=== PATIENT | female | born 1945 | race Caucasian/White ===

== ENCOUNTER → 2017-10-05 09:50 | Outpatient (CLI) | payer MEDICARE, SELFPAY ==
--- NOTE | 2017-10-05 09:53 | CDU_ITS ---
Reason For Study: Bilateral Carotid Stenosis Rt. Velocities/BP Lt. Velocities/BP Prox CCA 107/22 cm/sec. Prox CCA 113/25 cm/sec. Mid CCA 84/18 cm/sec. Mid CCA 89/24 cm/sec. Dist CCA 86/22 cm/sec. Dist CCA 66/14 cm/sec. Prox ICA 65/22 cm/sec. Prox ICA 98/30 cm/sec. Mid ICA 67/28 cm/sec. Mid ICA 123/41 cm/sec. Dist ICA 80/30 cm/sec. Dist ICA 108/41 cm/sec. Rt. ICA/CCA = 0.95. Lt. ICA/CCA = 1.38. Prox ECA 59/9 cm/sec. Prox ECA 96/11 cm/sec. Rt. Vert. 51/15 cm/sec. Lt. Vert. 62/18 cm/sec. Right Extracranial There is intimal thickening but no significant atherosclerotic plaque noted in the right common carotid artery. There is intimal thickening but no significant atherosclerotic plaque noted in the right internal carotid artery. There is intimal thickening but no significant atherosclerotic plaque noted in the right external carotid artery. Antegrade flow is noted in the right vertebral artery. Left Extracranial There is heterogeneous, irregular atherosclerotic plaque noted in the left common carotid artery. There is heterogeneous, irregular atherosclerotic plaque noted in the left internal carotid artery. There is no significant atherosclerotic plaque noted in the left external carotid artery. Antegrade flow is noted in the left vertebral artery. Procedure Carotid Duplex 41598. Exam performed in department. Interpretation Summary Mild (<50%) stenosis right extracranial internal carotid. Mild (<50%) stenosis left extracranial internal carotid. Flow within the vertebral arteries is antegrade bilaterally. Ordering Physician: Gini Ojeda Referring Physician: Gini Ojeda Performed By: Marlene Vinson, JYOTHI, RVT
== END ==
PROVIDERS: Family Provider Internal Medicine; PCP Internal Medicine; Visit Provider Internal Medicine
DX: I65.23 Occlusion and stenosis of bilateral carotid arteries (principal)
CPT/HCPCS: 93880

== ENCOUNTER 2017-10-23 09:17 | Day surgery (SDC) | payer MEDICARE, SELFPAY ==
--- NOTE | 2017-10-20 10:19 | EKG12_ITS ---
Test Reason : PRE OP Blood Pressure : / mmHG Vent. Rate : 074 BPM Atrial Rate : 074 BPM P-R Int : 150 ms QRS Dur : 084 ms QT Int : 386 ms P-R-T Axes : 060 -17 048 degrees QTc Int : 428 ms Sinus rhythm with marked sinus arrhythmia Septal infarct , age undetermined Abnormal ECG Confirmed by LUIS ENRIQUE HADLEY, TUCKER ([id number]), staff editor MORENO BOWER ([id number]) on 10/21/2017 1:20:36 PM Referred By: Russell Alegre Confirmed By:TUCKER DUDLEY MD
[2017-10-20 11:15] LABS: Hematocrit 44.6 % (37-47); Hemoglobin 14.3 g/dl (12.0-15.0); Mean Corp Hgb Conc 32.1 g/gl (32-36); Mean Corpuscular Volume 93.5 fL (81-99); Mean Platelet Vol. 9.5 fl (6.2-12.0); Platelet Count 271 K/mm3 (150-450); RBC Distribution Width CV 14.2 % (11.6-14.6); RBC Distribution Width SD 48.3 fl (35.1-43.9); Red Blood Count 4.77 M/mm3 (4.2-5.4); Scan Indicated on CBC? Y/N NO; White Blood Count 11.5 K/mm3 (4.4-11.0)
[2017-10-20 11:40] LABS: Anion Gap 7 (5-15); BUN 15 mg/dL (7-18); BUN/Creat Ratio 24.4 RATIO (10-20); Chloride 107 mmol/L (98-107); Creatinine, Serum 0.62 mg/dL (0.55-1.02); EST Glomerular Filtration Rate 101 mL/min (>60); Est Glom Filt Rate - Afr Amer 122 mL/min (>60); Glucose 92 mg/dL (74-106); Sodium Level 141 mmol/L (136-145)
[2017-10-23] VITALS (8 sets, daily range): BP systolic 142–174; BP diastolic 49–95; PULSE 76–94; RESP 16–18; TEMP 36.2–37.1; O2SAT 94–100; BMI 30.6
--- NOTE | 2017-10-23 | GALL_PTH ---
PATIENT: FAVIO HE LOC: [facility] U#:[id number] AGE/SX: 72/F ROOM: RE10/23/[address]: Dr. Russell Alegre MD : [id number] BED: DIS: 10/23/2017 SPEC #: [id number] RECD: 10/23/17 15:08 STATUS: NORMAN XANDER #: [id number] KARISSA: 10/23/17 00:[address]: Russell Alegre DEPT: SURGICAL PATHOLOGY RECD BY: Guillermo Whitfield ENTERED: 10/23/17 15:08 SP TYPE: YESSY PARKER DR: DO Dr. Jose Juan Prather MD Tissues: Gallbladder, NOS Procedures: Surgery Specimen Level IV HEADER OPERATION: Laparoscopic cholecystectomy; umbilical hernia repair PRE-OP DIAGNOSIS: Chronic cholecystitis without obstruction, cholelithiasis TISSUE SUBMITTED: Gallbladder MICROSCOPIC DIAGNOSIS Gallbladder: Chronic cholecystitis and cholelithiasis. Minute benign mucosal polyps. Focal epithelial dysplastic changes. HILDA:ghazal 10/26/17 MICROSCOPIC DESCRIPTION Slides are reviewed. GROSS DESCRIPTION Received is one container labeled with the patient's name and designated gallbladder. The specimen consists of a gallbladder measuring 12 cm in length and up to 4 cm in diameter. The external surface is pink-mejia, smooth and glistening for the most part. Focally it is granular, hemorrhagic and contains cautery artifact. The gallbladder contains green-yellow mucoid bile and one black rough-surfaced ovoid stone measuring 3 x 2 x 1.5 cm. A few mejia-pink polyps are also noted. The polyps measure 0.1 cm in greatest dimension. The mucosa is bile-stained and without any mass lesions. The gallbladder wall measures up to 0.2 cm in thickness. Timber Management Professor sections from the gallbladder and the cystic duct are submitted in two cassettes. The polyps are submitted in entirety. / HILDA:ghazal 10/23/17 More sections are submitted in cassettes 3-5. / HILDA:ghazal 10/27/17 TC:3 CPT: 25490
[2017-10-23] MEDS: Clindamycin 900 MG/50 ML BAG 75 MG IV (11:25)
--- NOTE | 2017-10-23 11:30 | PCM.DC.GB ---
Discharge Diet: Light diet - advance as tolerated Discharge Activity: May Not Drive - for 2-3 days or while taking narcotic pain medications., - - Do not drive, work heavy equipment or sign legal documents for 24 hours. May shower in (days): 1 - with the bandage in place. Additional Activity Instructions:: Pain medication may cause nausea. You should typically eat light foods as you take your pain medications. Pain medication may also cause constipation. If this is a problem for you, please discuss with your doctor. Call your doctor if your incision/area has: Continuous Slow Oozing, Sudden Increased Bleeding, Increased Pain/ Swelling, Increased Redness, Foul Smelling Discharge Call your doctor if you observe: Fever of 101 or Higher Suture Line Care: Avoid Pulling/Pushing, Avoid Pinching/Bending Additional Dressing/Incision Instructions:: Leave operative bandaids on for 2 days. When you remove dressing, leave Steri-Strips on until your follow-up appointment, or until the Steri-Strips fall off on their own. Allergies/Adverse Reactions: Allergies penicillin G Allergy (Unknown, Verified 10/16/17 14:07) Unknown Medications to take at Discharge Bifidobacterium infantis 4 mg capsule 4 mg PO QDAY 10/09/17 aspirin 81 mg tablet,delayed release 81 mg PO DAILY 10/09/17 calcium carbonate 200 mg calcium (500 mg) chewable tablet 200 mg PO DAILY tab 10/09/17 cholecalciferol (vitamin D3) 2,000 unit capsule 6,000 unit PO ONCE cap 10/09/17 rosuvastatin 5 mg tablet 5 mg PO QODAY 10/09/17 Ubidecarenone/Vitamin E Mixed [Ydk37-Fuv E 100 mg-10 Unit Sfg] 1 each PO DAILY 10/16/17 Oxycodone HCl/Acetaminophen [Percocet 5/325] 1 - 2 tab PO Q4H PRN PRN 4 Days #30 tab 10/23/17 The following prescriptions were given: Oxycodone HCl/Acetaminophen [Percocet 5/325] 1 - 2 tab PO Q4H PRN PRN 4 Days #30 tab PRN Reason: Pain Primary Care Physician: Gini Ojeda DO [Primary Care Provider] - Please Follow Up With: Russell Alegre MD - Please call [phone] to schedule an appointment. When: 7 days after your surgery.
--- NOTE | 2017-10-23 11:31 | PCM.OPRPT ---
Problem List (1) Calculus of gallbladder with chronic cholecystitis without obstruction Status: Acute Report of Operation Date of Procedure: 10/23/17 Pre-Operative Diagnosis: K 80.10 calculus of the gallbladder without obstruction or gangrene Post-Operative Diagnosis: Same Surgery/Procedure Performed:: 79567 laparoscopic cholecystectomy Type of Anesthesia:: General Anesthesiologist: Jose Juan Holt Description of Procedure: Patient was brought into the operating room and placed in the supine position. Under excellent endotracheal intubation the abdomen was sterilely prepped and draped in the usual fashion. Local was injected supraumbilically and a curvilinear incision was made. Dissection was carried down to the fascia the fascia was grasped with a Clifton varies needle was placed inside the abdomen the abdomen was insufflated to 15 torr. A 10/12 trocar was placed without difficulty. Patient was placed in the head up and rotated to the left position. A subxiphoid #5 trochars placed. Inferior to this another #5 trocar was placed. Laterally a #5 trocar was placed. All these under direct visualization without injury to underlying structures. Fundus of the gallbladder was grasped and retracted in a cephalad direction. Adhesions were taken down with electrocautery. I dissected out the cystic duct. I place hemoclips proximally and distally and ligated the duct. Identified the cystic artery. Placed hemoclips proximally and distally and ligated the artery. I deliver the gallbladder from the gallbladder bed with use of electrocautery. I did place 2 more hemoclips on the posterior branch of the cystic artery. I had no spillage of bile or stones. I placed a specimen specimen bag and delivered through the umbilical port without difficulty. I used electrocautery for good hemostasis. I remove the trochars under direct visualization. I closed the fascia the umbilical defect with 3 interrupted sutures of #1 Nurolon's. Skin incisions were closed with subcuticular stitches of 4-0 Monocryl. Steri-Strips are applied sterile dressings were applied and the patient tolerated the procedure well. - Admit VTE Documentation VTE Present on Admission: No VTE Mechan Device Prophylaxis: SCD's VTE Pharm Prophylaxis ordered?: No Reason prophylaxis not ordered:: Treatment Not Indicated
[2017-10-23] MEDS: Bupivacaine 0.25% 30 ML Vial (11:42)
--- NOTE | 2017-10-23 17:15 | SUR.PHASEII ---
At 1650 pt straight cath'd per orders for 500cc of cloudy dark yellow urine. chela well.
== END 2017-10-23 17:10 | disposition home or self-care (01) ==
LOC: SDC 09:17 → AC 09:18
PROVIDERS: Family Provider Internal Medicine; PCP Internal Medicine; Visit Provider Surgery
PROC: (CPT 47610; principal; 2017-10-23 11:10)
DX: K80.10 Calculus of gallbladder with chronic cholecystitis without obstruction (principal); K82.8 Other specified diseases of gallbladder; I05.2 Rheumatic mitral stenosis with insufficiency; I65.23 Occlusion and stenosis of bilateral carotid arteries; I10 Essential (primary) hypertension; E78.5 Hyperlipidemia, unspecified; Z79.82 Long term (current) use of aspirin; Z79.899 Other long term (current) drug therapy
CPT/HCPCS: 47562; 36415; 80048; 85027; 88304; 88305; 93005; J7120; J2405

== ENCOUNTER → 2017-12-08 11:28 | Outpatient (CLI) | payer MEDICARE, SELFPAY ==
[2017-12-08 12:08] LABS: Absolute Lymphocyte Count 3.08 X10^3/ul (0.83-4.51); Absolute Neutrophil Count 8.1 X10^3/uL (2.0-7.7); Basophil# 0.02 X10^3/uL; Basophil% 0.2 % (0-1); Eosinophil# 0.32 X10^3/uL; Eosinophils% 2.6 % (0-5); Hematocrit 44.9 % (37-47); Hemoglobin 14.4 g/dl (12.0-15.0); Lymphocyte # 3.08 X10^3/ul (4.0); Lymphocyte % 24.9 % (19-41); Mean Corp Hgb Conc 32.1 g/gl (32-36); Mean Corpuscular Volume 93.5 fL (81-99); Mean Platelet Vol. 9.2 fl (6.2-12.0); Monocyte# 0.84 X10^3/uL; Monocyte% 6.8 % (0-10); Neutrophil # 8.06 X10^3/uL (2.7-7.7); Neutrophil % 65.3 % (47-70); Platelet Count 288 K/mm3 (150-450); RBC Distribution Width CV 14.3 % (11.6-14.6); RBC Distribution Width SD 48.6 fl (35.1-43.9); White Blood Count 12.4 K/mm3 (4.4-11.0)
[2017-12-08 12:10] LABS: POSITIVE COUNT NO; POSITIVE DIFFERENTIAL NO; POSITIVE MORPHOLOGY NO
[2017-12-08 12:50] LABS: ALB/GLOB Ratio 1.2 RATIO (0.9-2.4); AST(SGOT) 23 U/L (15-37); Alanine Aminotransfer ALT/SGPT 33 U/L (13-56); Albumin, Serum 3.8 g/dL (3.2-5.0); Alkaline Phosphatase 59 U/L (45-117); Anion Gap 8 (5-15); BUN 11 mg/dL (7-18); BUN/Creat Ratio 16.4 RATIO (10-20); Calcium,Total 8.5 mg/dL (8.5-10.1); Chloride 107 mmol/L (98-107); Cholesterol 107 mg/dL (200); Creatinine, Serum 0.67 mg/dL (0.55-1.02); EST Glomerular Filtration Rate 91 mL/min (>60); Est Glom Filt Rate - Afr Amer 111 mL/min (>60); Globulin 3.2 g/dL (2.2-4.2); Glucose 89 mg/dL (74-106); High Density Lipoprotein 45 mg/dL; Potassium 4.2 mmol/L (3.5-5.1); Sodium Level 142 mmol/L (136-145); Triglycerides 152 mg/dL; Very Low Density Lipoprotein 30 mg/dL (5-40)
[2017-12-08 12:55] LABS: Hemoglobin A1c 5.9 % (4.2-6.3)
[2017-12-09 08:21] LABS: Vitamin D,25 Hydroxy 52.8 ng/mL (29.95-100.01)
== END ==
PROVIDERS: Family Provider Internal Medicine; PCP Internal Medicine; Visit Provider Internal Medicine
DX: R73.09 Other abnormal glucose (principal); R10.11 Right upper quadrant pain; E55.9 Vitamin D deficiency, unspecified; E78.5 Hyperlipidemia, unspecified
CPT/HCPCS: 36415; 80053; 80061; 82306; 83036; 85025

== ENCOUNTER → 2018-03-08 10:25 | Outpatient (CLI) | payer MEDICARE, SELFPAY ==
[2018-03-08 11:14] LABS: Absolute Lymphocyte Count 2.97 X10^3/ul (0.83-4.51); Absolute Neutrophil Count 6.6 X10^3/uL (2.0-7.7); Basophil# 0.03 X10^3/uL; Basophil% 0.3 % (0-1); Eosinophil# 0.27 X10^3/uL; Eosinophils% 2.5 % (0-5); Hematocrit 43.1 % (37-47); Hemoglobin 14.3 g/dl (12.0-15.0); Lymphocyte # 2.97 X10^3/ul (4.0); Lymphocyte % 27.3 % (19-41); Mean Corp Hgb Conc 33.2 g/gl (32-36); Mean Corpuscular Hgb 30.6 pg (27.0-32.0); Mean Corpuscular Volume 92.1 fL (81-99); Mean Platelet Vol. 9.2 fl (6.2-12.0); Monocyte# 0.97 X10^3/uL; Monocyte% 8.9 % (0-10); Neutrophil # 6.61 X10^3/uL (2.7-7.7); Neutrophil % 60.7 % (47-70); Platelet Count 316 K/mm3 (150-450); RBC Distribution Width CV 14.4 % (11.6-14.6); RBC Distribution Width SD 47.1 fl (35.1-43.9); Red Blood Count 4.68 M/mm3 (4.2-5.4); White Blood Count 10.9 K/mm3 (4.4-11.0)
[2018-03-08 11:18] LABS: POSITIVE COUNT NO; POSITIVE DIFFERENTIAL NO; POSITIVE MORPHOLOGY NO
[2018-03-08 11:24] LABS: Microalbumin,Random Urine 21.4 mg/L (NO RANGE EST.); Microalbumin:Creatinine Ratio 46.1 mg/g CRE (<30 mg/g CRE)
[2018-03-08 11:48] LABS: ALB/GLOB Ratio 1.1 RATIO (0.9-2.4); AST(SGOT) 21 U/L (15-37); Alanine Aminotransfer ALT/SGPT 31 U/L (13-56); Albumin, Serum 3.9 g/dL (3.2-5.0); Alkaline Phosphatase 57 U/L (45-117); Anion Gap 12 (5-15); BUN 18 mg/dL (7-18); BUN/Creat Ratio 28.7 RATIO (10-20); Calcium,Total 8.9 mg/dL (8.5-10.1); Chloride 104 mmol/L (98-107); Cholesterol 106 mg/dL (200); Creatinine, Serum 0.63 mg/dL (0.55-1.02); EST Glomerular Filtration Rate 98 mL/min (>60); Est Glom Filt Rate - Afr Amer 119 mL/min (>60); Globulin 3.4 g/dL (2.2-4.2); Glucose 98 mg/dL (74-106); High Density Lipoprotein 44 mg/dL; Potassium 3.8 mmol/L (3.5-5.1); Protein, Total 7.3 g/dL (6.4-8.2); Sodium Level 142 mmol/L (136-145); Triglycerides 151 mg/dL; Very Low Density Lipoprotein 30 mg/dL (5-40)
== END ==
PROVIDERS: Family Provider Internal Medicine; PCP Internal Medicine; Visit Provider Internal Medicine
DX: R73.09 Other abnormal glucose (principal); E78.5 Hyperlipidemia, unspecified; I10 Essential (primary) hypertension; K90.89 Other intestinal malabsorption; D72.829 Elevated white blood cell count, unspecified
CPT/HCPCS: 36415; 80053; 80061; 82043; 82570; 83036; 85025

== ENCOUNTER → 2018-04-08 15:12 | Outpatient (CLI) | payer MEDICARE, SELFPAY ==
--- NOTE | 2018-04-08 15:15 | US_ITS ---
STUDY: RENAL ULTRASOUND - COMPLETE REASON FOR EXAM: Female, 73 years old. Urinary frequency. TECHNIQUE: Ultrasound evaluation of the kidneys was performed with real-time and static seth-scale imaging. COMPARISON: None. FINDINGS: RIGHT KIDNEY: Normal location of the right kidney, which is normal in size. Right kidney measures 12.8 cm in length. There is a normal cortex of the right kidney. There is no right renal mass or cyst. There are no right renal calculi. There is no right hydronephrosis. DISTAL RIGHT URETER: There is no demonstrated right ureteral jet. LEFT KIDNEY: Normal location of the left kidney, which is normal in size. The left kidney measures 13.2 cm in length. There is a normal cortex of the left kidney. The renal cortex measures cm. There is no left renal mass or cyst. There are no left renal calculi. There is no left hydronephrosis. DISTAL LEFT URETER: There is no demonstrated left ureteral jet. BLADDER: The distended urinary bladder has a volume of 341 ml. According to the pillowcase turner the patient reported voiding and stated she felt empty. The empty urinary bladder has a volume of 347 ml. There is a normal wall thickness of the distended urinary bladder. There is no demonstrated mass within the urinary bladder. There are no demonstrated bladder calculi. US/Kidney and Bladder IMPRESSION: Within normal limits ultrasound of the kidneys. Significant post void residual. Electronically Signed: Hollie Ricks MD at 20:28 EDT Tel , Service support ,
== END ==
PROVIDERS: Family Provider Internal Medicine; PCP Internal Medicine; Visit Provider Urology
DX: N39.0 Urinary tract infection, site not specified (principal)
CPT/HCPCS: 76770

== ENCOUNTER → 2018-04-21 11:09 | Outpatient (CLI) | payer MEDICARE, SELFPAY | PROVIDERS: Family Provider Internal Medicine; PCP Internal Medicine; Visit Provider Internal Medicine | DX: Z78.0 Asymptomatic menopausal state (principal); M85.80 Other specified disorders of bone density and structure, unspecified site; Z12.31 Encounter for screening mammogram for malignant neoplasm of breast | CPT/HCPCS: 77063; 77067; 77080 ==

== ENCOUNTER → 2018-06-15 11:35 | Outpatient (CLI) | payer MEDICARE, SELFPAY ==
[2018-06-15 13:17] LABS: Absolute Lymphocyte Count 3.04 X10^3/ul (0.83-4.51); Absolute Neutrophil Count 6.7 X10^3/uL (2.0-7.7); Basophil# 0.02 X10^3/uL; Basophil% 0.2 % (0-1); Eosinophils% 2.8 % (0-5); Hematocrit 45.1 % (37-47); Hemoglobin 14.3 g/dl (12.0-15.0); Lymphocyte # 3.04 X10^3/ul (4.0); Lymphocyte % 27.9 % (19-41); Mean Corp Hgb Conc 31.7 g/gl (32-36); Mean Corpuscular Hgb 29.8 pg (27.0-32.0); Mean Platelet Vol. 9.8 fl (6.2-12.0); Monocyte# 0.84 X10^3/uL; Monocyte% 7.7 % (0-10); Neutrophil # 6.67 X10^3/uL (2.7-7.7); Neutrophil % 61.1 % (47-70); Platelet Count 265 K/mm3 (150-450); RBC Distribution Width CV 14.2 % (11.6-14.6); RBC Distribution Width SD 48.5 fl (35.1-43.9); White Blood Count 10.9 K/mm3 (4.4-11.0)
[2018-06-15 13:21] LABS: POSITIVE COUNT NO; POSITIVE DIFFERENTIAL NO; POSITIVE MORPHOLOGY NO
[2018-06-15 13:27] LABS: Microalbumin,Random Urine 14.8 mg/L (NO RANGE EST.); Microalbumin:Creatinine Ratio 15.2 mg/g CRE (<30 mg/g CRE)
[2018-06-15 14:12] LABS: ALB/GLOB Ratio 1.1 RATIO (0.9-2.4); AST(SGOT) 19 U/L (15-37); Alanine Aminotransfer ALT/SGPT 31 U/L (13-56); Albumin, Serum 3.8 g/dL (3.2-5.0); Alkaline Phosphatase 58 U/L (45-117); Anion Gap 11 (5-15); BUN 14 mg/dL (7-18); BUN/Creat Ratio 21.6 RATIO (10-20); Chloride 106 mmol/L (98-107); Cholesterol 113 mg/dL (200); Creatinine, Serum 0.65 mg/dL (0.55-1.02); EST Glomerular Filtration Rate 95 mL/min (>60); Est Glom Filt Rate - Afr Amer 114 mL/min (>60); Globulin 3.5 g/dL (2.2-4.2); Glucose 90 mg/dL (74-106); High Density Lipoprotein 45 mg/dL; Potassium 3.9 mmol/L (3.5-5.1); Protein, Total 7.3 g/dL (6.4-8.2); Sodium Level 141 mmol/L (136-145); Triglycerides 144 mg/dL; Very Low Density Lipoprotein 29 mg/dL (5-40)
[2018-06-15 14:17] LABS: Vitamin D,25 Hydroxy 38.5 ng/mL (29.95-100.01)
[2018-06-15 14:29] LABS: Hemoglobin A1c 5.8 % (4.2-6.3)
== END ==
PROVIDERS: Family Provider Internal Medicine; PCP Internal Medicine; Referring Provider Internal Medicine; Visit Provider Internal Medicine
DX: E78.5 Hyperlipidemia, unspecified (principal); E55.9 Vitamin D deficiency, unspecified; K76.0 Fatty (change of) liver, not elsewhere classified; R73.09 Other abnormal glucose
CPT/HCPCS: 36415; 80053; 80061; 82043; 82105; 82306; 82570; 83036; 85025

== ENCOUNTER → 2018-10-19 07:36 | Outpatient (CLI) | payer MEDICARE, SELFPAY ==
[2018-10-13 14:21] VITALS: BMI 30.2
--- NOTE | 2018-10-19 07:41 | US_ITS ---
STUDY: ABDOMINAL ULTRASOUND - RIGHT UPPER QUADRANT REASON FOR VISIT: Female, 73 years old. Fatty liver. TECHNIQUE: Ultrasound evaluation of the right upper quadrant was performed with real-time and static martini-scale imaging. TECHNICAL QUALITY: Adequate. COMPARISON: Abdominal ultrasound, September 24, 2017. FINDINGS: Liver: The liver measures 19.7 cm. There is increased echogenicity consistent with fatty infiltration. The bile ducts are within normal limits. There is hepatic color flow. The direction of portal flow is hepatopetal. There is no demonstrated mass lesion. Gallbladder: The patient is status post cholecystectomy. Common Bile Duct (C.B.D.): The common bile duct measures 5.2 mm. Pancreas: Normal size of the head, body and tail of the pancreas. There is normal echogenicity of the pancreas. There is no demonstrated pancreatic mass or cyst. Right Kidney: Normal size of the right kidney. The right kidney measures 12.7 cm. Normal renal cortex. The right cortex measures 1.8 cm. There is no demonstrated renal mass or cyst. There is no right hydronephrosis. US/Liver IMPRESSION: 1. Prominent fatty infiltrated liver without focal mass. 2. Interval cholecystectomy since the prior ultrasound. 3. Normal pancreas and right kidney. Electronically Signed: Abelardo Becerra DO at 23:54 EST Tel [phone], Service support ,
== END ==
PROVIDERS: Family Provider Internal Medicine; PCP Internal Medicine; Referring Provider Internal Medicine; Visit Provider Internal Medicine
DX: K76.0 Fatty (change of) liver, not elsewhere classified (principal)
CPT/HCPCS: 76705

== ENCOUNTER → 2018-10-22 08:38 | Outpatient (CLI) | payer MEDICARE, SELFPAY ==
[2018-10-13 14:21] VITALS: BMI 30.2
--- NOTE | 2018-10-22 08:47 | CDU_ITS ---
Reason For Study: carotid stenosis Rt. Velocities/BP Lt. Velocities/BP Prox CCA 87.9/18.2 cm/sec. Prox CCA 113/27.6 cm/sec. Mid CCA 80.3/20.5 cm/sec. Mid CCA 97.3/25.2 cm/sec. Dist CCA 75.6/21.1 cm/sec. Dist CCA 92.6/22.9 cm/sec. Prox ICA 51.6/12.9 cm/sec. Prox ICA 105/25.9 cm/sec. Mid ICA 62.1/21.7 cm/sec. Mid ICA 97.6/28.1 cm/sec. Dist ICA 89.1/34.0 cm/sec. Dist ICA 134/36.9 cm/sec. Rt. ICA/CCA = 1.1. Lt. ICA/CCA = 1.4. Prox ECA 110/14.7 cm/sec. Prox ECA 114/18.3 cm/sec. Rt. Vert. 46.3/13.5 cm/sec. Lt. Vert. 60.4/15.8 cm/sec. Right Extracranial There is intimal thickening but no significant atherosclerotic plaque noted in the right common carotid artery. There is intimal thickening but no significant atherosclerotic plaque noted in the right internal carotid artery. There is intimal thickening but no significant atherosclerotic plaque noted in the right external carotid artery. Antegrade flow is noted in the right vertebral artery. Left Extracranial There is intimal thickening but no significant atherosclerotic plaque noted in the left common carotid artery. There is heterogeneous, irregular atherosclerotic plaque noted in the left internal carotid artery. There is intimal thickening but no significant atherosclerotic plaque noted in the left external carotid artery. Antegrade flow is noted in the left vertebral artery. Procedure Carotid Duplex 21261. The exam was diagnostic. Exam performed in department. Interpretation Summary No significant atherosclerotic plaque or stenosis noted in the right internal carotid artery. Mild (<50%) stenosis left extracranial internal carotid. Flow within the vertebral arteries is antegrade bilaterally. Ordering Physician: Gini Ojeda Performed By: Scott Davis RVT
--- NOTE | 2018-10-22 09:09 | RAD_ITS ---
STUDY: AIR-CONTRAST UPPER GI SERIES. REASON FOR EXAM: Female, 73 years old. Dyspepsia. FLUOROSCOPY TIME (if supplied): (0:50) minutes/seconds TECHNIQUE: The patient ingested barium. Multiple images of the esophagus, stomach and duodenum were obtained. COMPARISON: None. FINDINGS: The esophagus is unremarkable. There is no evidence of obstruction. No reflux is seen. There is evidence of a small sliding hiatal hernia. The remainder of the stomach and duodenum is unremarkable. There is no evidence of ulceration. No mass lesions present. RAD/Upper GI Series Only IMPRESSION: Small sliding hiatal hernia without gastroesophageal reflux. Electronically Signed: Wellington Fontaine MD at 15:46 EST , Service support ,
== END ==
PROVIDERS: Family Provider Internal Medicine; PCP Internal Medicine; Referring Provider Internal Medicine; Visit Provider Internal Medicine
DX: I65.23 Occlusion and stenosis of bilateral carotid arteries (principal); K76.0 Fatty (change of) liver, not elsewhere classified; R07.9 Chest pain, unspecified
CPT/HCPCS: 74246; 93880

== ENCOUNTER → 2019-01-04 12:15 | Outpatient (CLI) | payer MEDICARE, SELFPAY ==
[2018-10-13 14:21] VITALS: BMI 30.2
[2019-01-04 13:12] LABS: Absolute Lymphocyte Count 2.44 X10^3/ul (0.83-4.51); Basophil# 0.02 X10^3/uL; Basophil% 0.2 % (0-1); Eosinophil# 0.25 X10^3/uL; Eosinophils% 2.4 % (0-5); Hematocrit 43.6 % (37-47); Hemoglobin 14.2 g/dl (12.0-15.0); Lymphocyte # 2.44 X10^3/ul (4.0); Lymphocyte % 23.2 % (19-41); Mean Corp Hgb Conc 32.6 g/gl (32-36); Mean Corpuscular Hgb 29.3 pg (27.0-32.0); Mean Corpuscular Volume 90.1 fL (81-99); Mean Platelet Vol. 9.2 fl (6.2-12.0); Monocyte# 0.75 X10^3/uL; Monocyte% 7.1 % (0-10); Neutrophil # 7.02 X10^3/uL (2.7-7.7); Neutrophil % 66.8 % (47-70); Platelet Count 277 K/mm3 (150-450); RBC Distribution Width CV 14.7 % (11.6-14.6); RBC Distribution Width SD 47.9 fl (35.1-43.9); Red Blood Count 4.84 M/mm3 (4.2-5.4); White Blood Count 10.5 K/mm3 (4.4-11.0)
[2019-01-04 13:13] LABS: POSITIVE COUNT NO; POSITIVE DIFFERENTIAL NO; POSITIVE MORPHOLOGY NO
[2019-01-04 13:32] LABS: ALB/GLOB Ratio 1.2 RATIO (0.9-2.4); AST(SGOT) 24 U/L (15-37); Alanine Aminotransfer ALT/SGPT 32 U/L (13-56); Albumin, Serum 3.9 g/dL (3.2-5.0); Alkaline Phosphatase 56 U/L (45-117); Anion Gap 10 (5-15); BUN 14 mg/dL (7-18); BUN/Creat Ratio 21.4 RATIO (10-20); Calcium,Total 9.3 mg/dL (8.5-10.1); Chloride 106 mmol/L (98-107); Cholesterol 121 mg/dL (200); Creatinine, Serum 0.66 mg/dL (0.55-1.02); EST Glomerular Filtration Rate 93 mL/min (>60); Est Glom Filt Rate - Afr Amer 113 mL/min (>60); Globulin 3.3 g/dL (2.2-4.2); Glucose 97 mg/dL (74-106); High Density Lipoprotein 48 mg/dL; Potassium 4.1 mmol/L (3.5-5.1); Protein, Total 7.2 g/dL (6.4-8.2); Sodium Level 142 mmol/L (136-145); Triglycerides 168 mg/dL; Very Low Density Lipoprotein 34 mg/dL (5-40)
[2019-01-04 13:34] LABS: Microalbumin,Random Urine 13.5 mg/L (NO RANGE EST.); Microalbumin:Creatinine Ratio 73.4 mg/g CRE (<30 mg/g CRE)
[2019-01-04 13:36] LABS: Hemoglobin A1c 6.4 % (4.2-6.3)
[2019-01-05 12:11] LABS: AFP, Tumor Marker 3.2 ng/mL (0.0-8.3)
== END ==
PROVIDERS: Family Provider Internal Medicine; PCP Internal Medicine; Referring Provider Internal Medicine; Visit Provider Internal Medicine
DX: E78.5 Hyperlipidemia, unspecified (principal); K76.0 Fatty (change of) liver, not elsewhere classified; R73.09 Other abnormal glucose
CPT/HCPCS: 36415; 80053; 80061; 82043; 82105; 82570; 83036; 85025

== ENCOUNTER → 2019-01-11 14:57 | Outpatient (CLI) | payer MEDICARE, SELFPAY ==
[2018-10-13 14:21] VITALS: BMI 30.2
--- NOTE | 2019-01-11 15:00 | VDLE_ITS ---
Reason For Study: pain RIGHT LEFT CFV is compressible, spontaneous, phasic, CFV is compressible, spontaneous, phasic, competent and demonstrates normal competent, and demonstrates normal augmentation. augmentation. FV is compressible, spontaneous, phasic, competent and demonstrates normal augmentation. POP V is compressible, spontaneous, phasic, competent and demonstrates normal augmentation. T/P Trunk is compressible. PTV is compressible. RT PerV is compressible. GSV is absent. Procedure Exam performed in department. The exam was diagnostic. A preliminary report was called and/or faxed to Dr. Ojeda. Interpretation Summary Deep veins of the right lower extremity are patent and compressible segmentally. There is no evidence of right lower extremity deep vein thrombosis. Valvular competence appears intact within the proximal deep venous system on the right . The right great saphenous vein is absent. Ordering Physician: Gini Ojeda Performed By: Scott Davis RVT
--- NOTE | 2019-01-11 15:31 | RAD_ITS ---
STUDY: X-RAY - UNILATERAL RIBS ( RIGHT ) WITH CHEST REASON FOR EXAM: Female, 73 years old. Increasing right rib pain. No history of trauma. TECHNIQUE - RIBS: 4 view(s) of the ribs. TECHNIQUE - CHEST: Single PA view of the chest. COMPARISON: Comparison is made with prior chest radiograph dated March 24, 2018. FINDINGS - RIBS: Normal visualized ribs without a demonstrated fracture. FINDINGS - CHEST: Hyperinflation. Stable mild increased markings at the lung bases suggestive of bibasilar scarring. There is no demonstrated pleural abnormality. Normal size heart. Normal mediastinum and nguyen. Normal visualized pulmonary arteries. There is atherosclerotic calcification of the aortic arch with tortuosity. There are diffuse degenerative changes of the visualized thoracic spine. Normal visualized ribs, clavicles, and shoulders. There is no demonstrated abnormality of the visualized soft tissue structures of the upper abdomen. RAD/Ribs Uni Min 3V w/PA Chest IMPRESSION: RIBS: Normal x-ray examination of the ribs. CHEST: Increased markings at the lung bases suggestive of scarring. This is unchanged. Electronically Signed: Wellington Fontaine, at 8:59 EDT , Service support ,
--- NOTE | 2019-01-11 15:31 | RAD_ITS ---
STUDY: X-RAY - RIGHT KNEE REASON FOR EXAM: Female, 73 years old. Increasing knee pain. A concern for osteoporosis. TECHNIQUE: 4 view(s) of the knee. COMPARISON: Prior comparison studies are not available for review at this time. FINDINGS: There is demineralization of the visualized distal femur. There is demineralization of the tibia and fibula. Normal proximal tibiofibular articulation. There is no demonstrated fracture. There is mild degenerative arthrosis of the medial femorotibial compartment. There is mild degenerative arthrosis of the lateral femorotibial compartment. There is mild degenerative arthrosis of the patellofemoral articulation. There is an enthesophyte at the quadriceps tendon insertion. There is chondrocalcinosis of the retropatellar cartilage. There is a moderate volume joint effusion. The soft tissue structures are unremarkable. RAD/Knee 4 or More Views IMPRESSION: 1. Osteopenia. 2. Degenerative arthropathy and enthesopathy. 3. Moderately large joint effusion. Electronically Signed: Archana Johnson MD at 17:19 EDT , Service support ,
== END ==
PROVIDERS: Family Provider Internal Medicine; PCP Internal Medicine; Referring Provider Internal Medicine; Visit Provider Internal Medicine
DX: M79.604 Pain in right leg (principal); R07.81 Pleurodynia
CPT/HCPCS: 71101; 73564; 93971

== ENCOUNTER → 2019-04-13 11:42 | Outpatient (CLI) | payer MEDICARE, SELFPAY ==
[2018-10-13 14:21] VITALS: BMI 30.2
[2019-04-13 12:35] LABS: Absolute Lymphocyte Count 2.43 X10^3/uL (0.83-4.51); Absolute Neutrophil Count 6.4 X10^3/uL (2.0-7.7); Basophil# 0.04 X10^3/uL; Basophil% 0.4 % (0-1); Eosinophil# 0.18 X10^3/uL; Eosinophils% 1.8 % (0-5); Hematocrit 44.3 % (37-47); Hemoglobin 14.9 g/dL (12.0-15.0); Lymphocyte # 2.43 X10^3/ul (4.0); Lymphocyte % 24.5 % (19-41); Mean Corp Hgb Conc 33.6 g/dL (32-36); Mean Corpuscular Volume 92.1 fL (81-99); Mean Platelet Vol. 9.4 fl (6.2-12.0); Monocyte# 0.81 X10^3/uL; Monocyte% 8.2 % (0-10); NRBC Flagged by Analyzer 0 % (0-5); Neutrophil # 6.42 X10^3/uL (2.7-7.7); Neutrophil % 64.6 % (47-70); Platelet Count 285 K/mm3 (150-450); RBC Distribution Width CV 13.9 % (11.6-14.6); RBC Distribution Width SD 47.2 fl (35.1-43.9); Red Blood Count 4.81 M/mm3 (4.2-5.4); White Blood Count 9.9 K/mm3 (4.4-11.0)
[2019-04-13 12:52] LABS: Hemoglobin A1c 6.1 % (4.2-6.3)
[2019-04-13 13:00] LABS: ALB/GLOB Ratio 1.2 RATIO (0.9-2.4); AST(SGOT) 22 U/L (15-37); Alanine Aminotransfer ALT/SGPT 30 U/L (13-56); Alkaline Phosphatase 57 U/L (45-117); Anion Gap 8 (5-15); BUN 18 mg/dL (7-18); BUN/Creat Ratio 24.2 RATIO (10-20); Calcium,Total 9.3 mg/dL (8.5-10.1); Chloride 107 mmol/L (98-107); Cholesterol 120 mg/dL (200); Creatinine, Serum 0.74 mg/dL (0.55-1.02); EST Glomerular Filtration Rate 81 mL/min (>60); Est Glom Filt Rate - Afr Amer 98 mL/min (>60); Globulin 3.4 g/dL (2.2-4.2); Glucose 108 mg/dL (74-106); High Density Lipoprotein 47 mg/dL; Protein, Total 7.4 g/dL (6.4-8.2); Sodium Level 140 mmol/L (136-145); Triglycerides 111 mg/dL; Very Low Density Lipoprotein 22 mg/dL (5-40)
== END ==
PROVIDERS: Family Provider Internal Medicine; PCP Internal Medicine; Referring Provider Internal Medicine; Visit Provider Internal Medicine
DX: I10 Essential (primary) hypertension (principal); E78.5 Hyperlipidemia, unspecified; R73.09 Other abnormal glucose
CPT/HCPCS: 36415; 80053; 80061; 83036; 85025

== ENCOUNTER → 2019-05-05 06:36 | Outpatient (CLI) | payer MEDICARE, SELFPAY ==
[2018-10-13 14:21] VITALS: BMI 30.2
--- NOTE | 2019-05-05 06:48 | ECHOCS_ITS ---
Reason For Study: BARGER Procedure This was a 2D Doppler, Color Flow transthoracic echocardiogram. The study was technically difficult. Contrast injection was performed. Exam performed in department. Left Ventricle Normal size and thickness. The estimated ejection fraction is 65 %. Normal diastology for age. No regional wall motion abnormalities noted. Right Ventricle Normal RV size. Normal systolic function. Atria Normal left atrium. Normal right atrium. No doppler evidence for ASD. Mitral Valve There is no mitral valve stenosis. No mitral valve insufficiency. Tricuspid Valve There is no tricuspid stenosis. Unable to estimate RV systolic pressure due to insufficient tricuspid regurgitant envelope. Trivial tricuspid valve insufficiency. Aortic Valve Trisinus/trileaflet aortic valve. There is no aortic stenosis. No aortic valve insufficiency. Pulmonic Valve There is no pulmonic valvular stenosis. No pulmonic valve insufficiency. Great Vessels Normal aortic root. Pericardium/Pleural No pericardial effusion. Medication Diluted definity 3.5ml given slow IV push to enhance endocardial definition. MMode/2D Measurements & Calculations LVIDd: 4.4 cm IVSd: 0.89 cm Ao root diam: 3.0 cm LVIDs: 2.7 cm LVPWd: 0.96 cm RVDd: 3.2 cm FS: 38.3 % LAV(MOD-bp): 53.5 ml LVAd ap4: 27.8 cm2 SV(MOD-sp4): 61.9 ml LAV(MOD-bp) Indexed: 25.3 ml/m2 EDV(MOD-sp4): 92.2 ml LAV(MOD-sp2): 64.2 ml EDV(sp4-el): 93.8 ml LAV(MOD-sp4): 41.9 ml LVAs ap4: 14.6 cm2 ESV(MOD-sp4): 30.3 ml ESV(sp4-el): 30.7 ml EF(MOD-sp4): 67.2 % EF(sp4-el): 67.3 % SV(sp4-el): 63.1 ml LA A4 area: 17.2 cm2 LA dimension(2D): 3.3 cm RA A4 area: 13.7 cm2 Time Measurements MV dec time: 0.24 sec Doppler Measurements & Calculations MV E max cole: 102.3 cm/sec Lat Peak E' Cole: 8.6 cm/sec Med Peak E' Cole: 7.0 cm/sec MV A max cole: 92.8 cm/sec E/E' lat: 11.9 E/E' med: 14.7 MV E/A: 1.1 Ao V2 max: 136.8 cm/sec LV V1 max: 111.2 cm/sec PA V2 max: 91.3 cm/sec Ao max P.5 mmHg LV V1 max P.0 mmHg TR max cole: 229.6 cm/sec TR max P.1 mmHg Interpretation Summary The study was technically difficult. Diluted definity 3.5ml given slow IV push to enhance endocardial definition. The estimated ejection fraction is 65 %. Normal diastology for age. The study was technically difficult. Ordering Physician: Gini Ojeda Referring Physician: Gini Ojeda Performed By: Nan Man, JYOTHI, RVT
--- NOTE | 2019-05-05 10:20 | US_ITS ---
STUDY: ABDOMINAL ULTRASOUND - RIGHT UPPER QUADRANT REASON FOR VISIT: Female, 74 years old. Elevated LFTs TECHNIQUE: Ultrasound evaluation of the right upper quadrant was performed with real-time and static martini-scale imaging. TECHNICAL QUALITY: Adequate. COMPARISON: None. FINDINGS: Liver: The liver measures 18.1 cm. There is increased echogenicity consistent with fatty infiltration. The bile ducts are within normal limits. There is hepatic color flow. The direction of portal flow is hepatopetal. There is no demonstrated mass lesion. Gallbladder: The patient is status post cholecystectomy. Common Bile Duct (C.B.D.): The common bile duct measures 8.6 mm. Pancreas: Normal size of the head, body and tail of the pancreas. There is normal echogenicity of the pancreas. There is no demonstrated pancreatic mass or cyst. Right Kidney: Normal size of the right kidney. The right kidney measures 13.1 x 5.9 x 4.3 cm. Normal renal cortex. The right cortex measures 1.1 cm. There is no demonstrated renal mass or cyst. There is no right hydronephrosis. US/Liver IMPRESSION: Fatty infiltration of the liver, no discrete lesion Previous cholecystectomy Electronically Signed: Epi Mcdonnell MD at 13:56 EDT , Service support ,
--- NOTE | 2019-05-05 12:05 | BI_ITS ---
MAMMOGRAPHY - BILATERAL SCREENING REASON FOR EXAM: Female, 74 years old. Routine annual screening examination. PERTINENT HISTORY: Non-contributory. Remote left stereotactic breast biopsies. TECHNIQUE: Digital bilateral breast jasper (3D mammographic acquisition) in the CC and MLO projections. 2-D mediolateral oblique (MLO) and craniocaudad (CC) views of both breasts were obtained. CAD: Full Field Digital Mammography with Computer Added Detection was performed. COMPARISON: Comparison is made with prior study dated April 21, 2018 and March 30, 2017. FINDINGS: Breast Composition: The breasts are heterogeneously dense, which may obscure small masses. There are no dominant masses or suspicious calcifications. Tissue clip marker is once again seen in the upper outer quadrant of the left breast. Stable benign-appearing bilateral axillary nodes. No other significant abnormalities are identified. There has been no significant change since the prior study. BI/SCREEN MAMM (CAD) W/JASPER BILAT IMPRESSION: Stable bilateral screening mammogram. Yearly follow-up mammogram recommended. (A) ASSESSMENT CATEGORY: BIRADS Category 2: Benign. A letter regarding these results will be sent to the patient by the facility within 30 days. Approximately 10% of breast cancers are not detected by mammography. A normal mammogram should not delay biopsy of a clinically suspicious abnormality. [id number] Electronically Signed: Wellington Fontaine, at 13:19 EDT , Service support ,
--- NOTE | 2019-05-06 11:50 | STRESSREP ---
Stress Test Report Date: 05/05/2019 Procedure: Pharmacologic stress nuclear imaging study Indications: Dyspnea on exertion Consent: Per the patient Procedure: The patient underwent pharmacologic (Regadenoson) evaluation with a peak heart rate of 113 beats per minute ([78]%predicted maximal heart rate) and a peak blood pressure of 158/70 mmHg. The baseline ECG demonstrated normal sinus rhythm, possible prior anterior WA. EKG during lexiscan infusion revealed significant ischemic changes. EKG post infusion revealed no significant ischemic changes [There were no cardiac dysrhythmias pretest, during pharmacologic infusion, or recovery]. [There was no complaint of chest discomfort during pharmacologic infusion or recovery]. The examination was discontinued secondary to completion of protocol. Impression: 1. Lexiscan stress test test is negative for Lexiscan infusion induced EKG changes of ischemia. 2. Lexiscan stress test test is negative for Lexiscan infusion induced chest pain. 3. Results of the nuclear portion of the test is as below Myocardial perfusion imaging study: Technique: The patient was injected with 14.7 millicuries of technetium 99m Cardiolite and subsequently rest SPECT Cardiolite nuclear imaging was obtained in the horizontal long, vertical long, and short axis views. The patient underwent pharmacologic (Regadenoson) evaluation. Please see above for details. The patient was injected with 44.8 millicuries of technetium 99m Cardiolite and subsequently stress SPECT Cardiolite nuclear imaging was obtained in the horizontal long, vertical long, and short axis views. A gated Cardiolite study at peak stress was obtained. Interpretation: Rest and stress SPECT Cardiolite nuclear imaging status post realignment, normalization, and attenuation correction demonstrate [normal myocardial radioisotope]. Gated images reveal no significant regional wall motion abnormalities. The reported LVEF is greater than 70 %. Impression: 1. There is no evidence of significant ischemia or infarction. 2. Estimated ejection fraction is greater than 70%. This note was generated with [employer] software. It may contain incorrect words, spelling, and punctuation that were not noted in checking the note before signing.
== END ==
PROVIDERS: Family Provider Internal Medicine; PCP Internal Medicine; Referring Provider Internal Medicine; Visit Provider Internal Medicine
DX: R06.09 Other forms of dyspnea (principal); K76.0 Fatty (change of) liver, not elsewhere classified; Z12.31 Encounter for screening mammogram for malignant neoplasm of breast
CPT/HCPCS: 76705; 77063; 77067; 78452; 93017; 93306; A9500; Q9957; A4216; C8929; J2785

== ENCOUNTER → 2019-07-12 10:38 | Outpatient (CLI) | payer MEDICARE, SELFPAY ==
[2018-10-13 14:21] VITALS: BMI 30.2
[2019-07-12 12:22] LABS: Absolute Lymphocyte Count 2.36 X10^3/uL (0.83-4.51); Absolute Neutrophil Count 9.3 X10^3/uL (2.0-7.7); Basophil# 0.05 X10^3/uL; Basophil% 0.4 % (0-1); Eosinophil# 0.39 X10^3/uL; Hematocrit 46.3 % (37-47); Hemoglobin 14.4 g/dL (12.0-15.0); Lymphocyte # 2.36 X10^3/ul (4.0); Lymphocyte % 18.1 % (19-41); Mean Corp Hgb Conc 31.1 g/dL (32-36); Mean Corpuscular Hgb 29.3 pg (27.0-32.0); Mean Corpuscular Volume 94.3 fL (81-99); Monocyte# 0.93 X10^3/uL; Monocyte% 7.1 % (0-10); NRBC Flagged by Analyzer 0 % (0-5); Neutrophil # 9.28 X10^3/uL (2.7-7.7); Neutrophil % 70.9 % (47-70); Platelet Count 483 K/mm3 (150-450); RBC Distribution Width CV 13.7 % (11.6-14.6); RBC Distribution Width SD 47.8 fl (35.1-43.9); Red Blood Count 4.91 M/mm3 (4.2-5.4); White Blood Count 13.1 K/mm3 (4.4-11.0)
[2019-07-12 12:29] LABS: Hemoglobin A1c 5.9 % (4.2-6.3)
[2019-07-12 13:14] LABS: ALB/GLOB Ratio 0.9 RATIO (0.9-2.4); AST(SGOT) 19 U/L (15-37); Alanine Aminotransfer ALT/SGPT 27 U/L (13-56); Albumin, Serum 3.6 g/dL (3.2-5.0); Alkaline Phosphatase 76 U/L (45-117); BUN 11 mg/dL (7-18); BUN/Creat Ratio 17.8 RATIO (10-20); Calcium,Total 9.2 mg/dL (8.5-10.1); Cholesterol 119 mg/dL (200); Creatinine, Serum 0.62 mg/dL (0.55-1.02); EST Glomerular Filtration Rate 100 mL/min (>60); Est Glom Filt Rate - Afr Amer 121 mL/min (>60); Globulin 4.2 g/dL (2.2-4.2); Glucose 99 mg/dL (74-106); Protein, Total 7.8 g/dL (6.4-8.2); Triglycerides 117 mg/dL
[2019-07-12 13:15] LABS: Anion Gap 9 (5-15); Chloride 104 mmol/L (98-107); High Density Lipoprotein 46 mg/dL; Potassium 3.9 mmol/L (3.5-5.1); Sodium Level 138 mmol/L (136-145); Very Low Density Lipoprotein 23 mg/dL (5-40)
== END ==
PROVIDERS: Family Provider Internal Medicine; PCP Internal Medicine; Referring Provider Internal Medicine; Visit Provider Internal Medicine
DX: E78.5 Hyperlipidemia, unspecified (principal); I10 Essential (primary) hypertension; R73.01 Impaired fasting glucose
CPT/HCPCS: 36415; 80053; 80061; 83036; 85025

== ENCOUNTER → 2019-09-19 13:12 | Outpatient (CLI) | payer MEDICARE, SELFPAY ==
[2018-10-13 14:21] VITALS: BMI 30.2
--- NOTE | 2019-09-19 13:21 | RAD_ITS ---
STUDY: X-RAY - FACIAL BONES REASON FOR STUDY: Female, 74 years old. PATIENT FELL YESTERDAY. PAIN IN RIGHT CHEEK BONE. DID FACIAL VIEWS WITH ATTN TO ZYGOMATIC ARCH ON THE RIGHT. TECHNIQUE: 5 view(s) of the facial bones. COMPARISON: None. FINDINGS: Normal bilateral frontozygomatic and zygomatic-temporal arches. Normal bilateral medial and inferior orbital bergman. Normal bilateral orbits. Normal visualized nasal bones. Normal anterior nasal spine. The remaining visualized osseous structures are normal. There is no demonstrated soft tissue swelling. Normal visualized paranasal sinuses. RAD/Facial Bones min 3 Views IMPRESSION: Normal x-ray examination of the facial bones. Electronically Signed: Bre Hammond MD at 0:21 EST , Service support ,
--- NOTE | 2019-09-19 13:26 | RAD_ITS ---
HISTORY: PATIENT FELL YESTERDAY ONTO HER RIGHT SIDE. PAIN IN RIGHT SHOULDER INTO HER RIGHT HUMERUS. ADDITIONAL HISTORY: None provided. TECHNIQUE: Right shoulder 4 views Number of images including paperwork: 4 COMPARISON: None FINDINGS: BONES: No acute fracture. Spurring noted along the inferior aspect of the acromion. JOINTS: No subluxation. Mild to moderate degenerative changes of the glenohumeral and acromioclavicular joints. SOFT TISSUES: No distinct foreign body. RAD/Shoulder min 2 Views IMPRESSION: Degenerative changes without acute osseous abnormality. at 2343 Reported and signed by: Mena Reeves MD Electronically Signed: Mena Reeves MD at 23:43 EST Tel , Service support ,
--- NOTE | 2019-09-19 13:26 | RAD_ITS ---
STUDY: X-RAY - RIGHT HUMERUS REASON FOR EXAM: Female, 74 years old. PATIENT FELL YESTERDAY ONTO HER RIGHT SIDE. PAIN IN RIGHT SHOULDER INTO HER RIGHT HUMERUS. TECHNIQUE: 2 view(s) of the humerus. COMPARISON: None. FINDINGS: Normal visualized humerus. There is no demonstrated fracture or osseous destructive process. There is no demonstrated soft tissue abnormality. RAD/Humerus min 2 Views IMPRESSION: Normal x-ray examination of the humerus. Electronically Signed: Bre Hammond MD at 0:21 EST , Service support ,
== END ==
PROVIDERS: PCP Internal Medicine; Referring Provider Internal Medicine; Visit Provider Internal Medicine
DX: R51 Headache (principal); M79.601 Pain in right arm; M25.511 Pain in right shoulder
CPT/HCPCS: 70150; 73030; 73060

== ENCOUNTER 2019-10-18 11:30 | Outpatient (RCR) | payer MEDICARE, SELFPAY ==
[2018-10-13 14:21] VITALS: BMI 30.2
--- NOTE | 2019-07-13 12:30 | HP.PTEVAL_ITS ---
Patient's Visit Information FAVIO HE is a 74 year old F referred to Physical Therapy by Mandeep Del Rio MD with a diagnosis of BACK PAIN. Date of Evaluation: 07/13/19 Physical Therapist: Chelsey Bruce PT, Cert MDT - Visit Plan Frequency: 2-3x /Week Duration: 4-6 Weeks Plan: AQUATIC THERAPY FOR POSTURE CORRECTION/STRENGTHENING, INSTRUCTION IN APPROPRIATE BODY MECHANICS AND ACTIVITY MODIFICATIONS. DLS STARTING WITH A NEUTRAL SPINE PROGRESSING ROM TOLERATED. ALEXANDER LE ROM, STRETCHING AND STRENGTHENING. HEP INSTRUCTION. 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 EXPECTS TO BE AT [facility] AT LEAST ANOTHER MONTH. Disability: NO. Present symptoms: DRAWING FORWARD IN BACK WITH PROLONGED WALKING. EVEN SHORT WALKING. ALEXANDER LE WEAKNESS RIGHT > LEFT THAT CAN COME AT ANY TIME. INTERMITTENT LOW BACK PAIN. NO SHOOTING PAIN, NUMBNESS OR TINGLING DOWN EITHER LEG. Present since: ABOUT 2 YEARS. Pain Scale: N/A. Currently: WORSENING. Commenced as a result of: NO APPARENT REASON. Symptoms at onset: SAME. CAME ON SLOWLY. Worse: PROLONGED STANDING AND WALKING. Better: SITTING, USING A SHOPPING CART. Disturbed sleep: NO. Previous history/Previous treatment: NO BACK SURGERY. HAS BEEN SEEING A CHIROPRACTOR MORE REGULARLY FOR ABOUT 6 YEARS. 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 HAS BEEN SEEING CHIROPRACTOR SINCE HIGH SCHOOL. STATES HER BACK GOES OUT. H/O TERRIBLE SCIATICA SEVERAL TIMES. NO BACK INJECTIONS. Coughing/sneezing/straining: NEGATIVE. Gait: ISSUES WITH RIGHT FOOT. WAITING FOR A NEW BRACE FROM [employer]. GETS SOB. RECENT HEART TESTS WERE FINE. HAS MILD COPD. DRAWS FORWARD IN HER WAIST. STATES SHE CONSCIOUSLY TRIES TO CORRECT HER POSTURE AND RIGHT LE DURING GAIT. Difficulty initiating urinatin: NO. Accidents: NO. Unexplained weight loss: NO. Imagin LUMBAR X-RAY: There is loss of disc space height at the L3/L4-L5/S1 levels. There is bridging osteophyte formation throughout the lower lumbar spine. There is facet hypertrophy at the L4/L5-L5/S1 levels. RECENT LUMBAR X-RAYS AT [facility] - DEGENERATION. PMH: MILD COPD, RIGHT FOOT PROBLEMS, MITRAL VALVE PROLAPSE, INCONTINNENT - BLADDER PROLAPSE. VARICOSE VEINS - DAILY COMPRESSION STOCKINGS. H/O RIGHT LEG AND FOOT FRACTURES FROM REMOTE FALLS. H/O NECK PROBLEMS. OTHER: IS IN POOR HEALTH - STROKE MARCH 23 2019. - Objective Sitting/Standing Posture: POOR. SCOLIOSIS. ALEXANDER GENU VALGUS. LEFT HIP HIGHER THAN RIGHT. Active Correction of posture: NE. Other Observations: INDEP GAIT INTO PT LIMPING ON RIGHT LE. NO ASSISTIVE DEVICES OR LOSS OF BALANCE. DECREASED CADANCE AND INCREASED TRUNK FLEXION. Motor deficit: RIGHT LE: HIP 4-/5, KNEE EXT 4-/5, KNEE FLEX 4/5, ANKLE 3-/5. LEFT HIP 4/5, KNEE EXT 4-/5, KNEE FLEX 4/5, ANKLE 4/5. Sensory deficit: ALEXANDER LE LIGHT TOUCH SENSATION IS INTACT BUT FEET NT. ROM deficit: TIGHT ALEXANDER GASTROC SOLEUS COMPLEX'S AND HIP FLEXORS. Reflexes: NT. Dural Signs: NEGATIVE ALEXANDER LE'S. Lumbar mvmt loss: flex - MIN. ext - CRISTIAN. R SG - CRISTIAN. L SG - CRISTIAN. Core strength: POOR. Palpation: VERY TIGHT ALEXANDER LUMBAR PARASPINALS. NO ACUTE LOWER THORACIC OR LUMBAR TENDERNESS. - Goals Goal 1:: DECREASE C/O LOW BACK AND ALEXANDER LE SX'S. Goal Time Frame: 4-6 Weeks Goal 2:: IMPROVE LIFTING, WALKING AND STANDING FUNCTION Goal Time Frame: 4-6 Weeks Goal 3:: INSTRUCT IN PROPHYLAXIS Goal Time Frame: 4-6 Weeks - Rehabilitation Potential Rehabilitation Potential: Fair - Anticipated Interventions Patient/Client Instruction: Educate patient on: Condition, Plan of Care, Risk Factors, Benefits of Fitness Program For the Purpose of:: To improve self management Therapeutic Exercise to Include: Strength training, Body mechanics, Postural training, Flexibilty training, In an aquatic setting, Dynamic Lumbar Stabilization For the Purpose of:: To decrease pain, To improve muscle performance and motor function, To increase tolerance to activity/condition/position, To improve ability of physical actions for home/community/work/leisure Thank you for the opportunity to evaluate your patient. For Medicare and Medicare HMO plans, please review the plan of care and approve it. It will need to be FAXED BACK to us at [phone] for Medicare purposes. For Medicare only, by signing this I certify the plan of care. Please let me know if there are questions or concerns regarding this plan of care. Physician Signature: Date:
--- NOTE | 2019-08-25 12:09 | HP.PTREVAL_ITS ---
Mandeep Castle MD, It has been my pleasure to treat FAVIO HE over the last 5 visits for BACK PAIN. Please see the progress note below for an update on the physical therapy plan of care! Subjective: IT FEELS BETTER WHEN I AM IN THE WATER. IT RELAXES MY BACK. PATIENT REPORTS SHE HASN'T SEEN MUCH IMPROVEMENT YET WITH JUST A FEW VISITS. SHE REPORTS THAT AQUATIC THERAPY IS VERY TIME CONSUMING FOR HER - TAKES ABOUT A HALF A DAY TO GET READY AND THEN TOO TIRED TO DO ANYTHING AFTER. DOESN'T WANT TO CONTINUE AQUATIC THERAPY BECAUSE OF THE PREPARATION. PATIENT REPORTS SHE HAS ONLY BEEN ABLE TO FIT IN 3 VISITS SINCE EVAL. PATIENT REPORTS RIGHT LOW BACK AND UPPER BACK PAIN WITH SPASMS UP TO 5/10 WHICH CAUSES HER TO BEND FORWARD AND SIT DOWN. Objective/Function: UPON EXAM THERE ARE NO SIGNIFICANT CHANGES TODAY COMPARED TO INITIAL EVAL. PATIENT BECAME TEARFUL TODAY EXPRESSING OVER-WHELMING ISSUES WITH CARE TAKING OF IF HE COMES HOME FROM THE SENIOR LIVING. DEALING WITH THE LOGISTICS OF AQUATIC THERAPY RIGHT NOW ARE MORE THAN PATIENT THNKS SHE CAN HANDLE. SHE DOES NOT HAVE FOLLOW UP SCHEDULED WITH DR. CASTLE AND PLANS TO DISCUSS HER ON-GOING ISSUES WITH DR. KHAN. PATIENT IS APPROPRIATE TO TRY LAND THERAPY FOR A HOME PROGRAM AND PATIENT IS AGREEABLE BUT WANTS TO DISCUSS IT WITH DR. KHAN. Plan Plan: HOLD PT PENDING PATIENT FOLLOW UP WITH DR. KHAN. PATIENT WILL NEED A NEW ORDER TO CONTINUE PT IF REFERRED BACK BY DR. KHAN. Goals Goal 1:: DECREASE C/O LOW BACK AND ALEXANDER LE SX'S. Goal Time Frame: 4-6 Weeks Goal Progress: Not Progressing Goal 2:: IMPROVE LIFTING, WALKING AND STANDING FUNCTION Goal Time Frame: 4-6 Weeks Goal Progress: Not Progressing Goal 3:: INSTRUCT IN PROPHYLAXIS Goal Time Frame: 4-6 Weeks Goal Progress: Not Progressing Anticipated Interventions Patient/Client Instruction: Educate patient on: Condition, Plan of Care, Risk Factors, Benefits of Fitness Program For the Purpose of:: To improve self management Therapeutic Exercise to Include: Strength training, Body mechanics, Postural training, Flexibilty training, In an aquatic setting, Dynamic Lumbar Stabilization For the Purpose of:: To decrease pain, To improve muscle performance and motor function, To increase tolerance to activity/condition/position, To improve ability of physical actions for home/community/work/leisure Please do not hesitate to contact me at [phone] by phone or if you have questions or concerns regarding this new plan of care! Sincerely, Chelsey Bruce, PT, Cert MDT
--- NOTE | 2019-09-27 07:29 | HP.PTEVAL2_ITS ---
Patient's Visit Information FAVIO HE is a 74 year old F referred to Physical Therapy by Mandeep Del Rio MD with a diagnosis of R shoulder pain. Date of Evaluation: 09/26/19 Physical Therapist: Misael Moran DPT - Visit Plan Frequency: 2-3x /Week Duration: 4-6 Weeks Plan: Start with US to subacromial space, gentle PROM progressing to AROM. May add in gentle isometrics and active elbow movements. Start with modalities to reduce symptoms, progressing to movement as tolerated. - Subjective Findings: Pt. is here today for her initial evaluation with diagnosis of R shoulder pain. Pt. reports falling while walking down her garage steps. She landing on her R side, but unsure if she was able to brace with her arm or not. Pt. reports haivng difficulty raising her arm, dressing, bathing, and grooming. Pt. reports pain at lateral aspect of R shoulder and anterior R shoulder. Pt. reports having some numbness in shoudler at times, but minimal. Difficulty sleeping as well. Xrays- negative for fx. She denies bruising. Pt. 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 - Pain R shoulder Intensity: 6 Pain Intensity Range: 4, 9 - Objective Objective: POSTURE: Pt. keeps R shoulder in guarded posture, IR and rounded shoulder positoning. Pt. has FH posture as well. PALPATION: Pt. has increased tenderness at bicipital tendon, subacromial space (anterior aspect. No brusing noted, no sulcus sign. NEURO: normal of B UE,both DTR and sensation. ROM: L shoulder- normal throuhgout without increase in symptoms. R shoulder- flexion 78deg, abd 65deg, functional ER- external auditory meatus, functional IR- L5 (abherrant motion). PROM- R shoulder- flexion 150deg mild increase nW, abd 140deg mild increase NW, ER at 70deg of abd- 75deg, IR at 70deg of abd- 30deg mild increase NW. MMT: L shoulder- 4+/5 throughout- no pain. R shoulder- flexion 3/5, abd 3/5, ER 3+/5 increase NW, IR 4/5, ext 4/5. - Special Tests Supine Impingement Test - RC Tear: Positive Drop Sign - IS Test: Positive Empty Can - SS: Positive Kern Montez - Impingement: Positive Comments: Drop test- not fully positive, but painful/difficult with attempt to lower - Goals Goal 1:: LTG: Pt. to be I with HEP. Goal Time Frame: 4-6 Weeks Goal 2:: STG: Pt. to sleep throughout the night with 0-2/10 pain allowing for increased quality of life. Goal Time Frame: 4-6 Weeks Goal 3:: STG: Pt. to complete dressing, grooming, and all ADLs with 0-2/10 pain. Goal Time Frame: 2-4 Weeks Goal 4:: LTG: Pt. have increased AROM of R shoulder, symmetrical to L shoulder with 0-2/10 pain. Goal Time Frame: 4-6 Weeks Goal 5:: STG: Pt. to drive without increase in symptoms. Goal Time Frame: 2-4 Weeks Goal 6:: LTG: pt. to have increased R shoulder strength by 1/2 grade of all effected musculature. Goal Time Frame: 4-6 Weeks - Rehabilitation Potential Physical Therapy Diagnosis: Pt. has signs and symptoms of R shoulder pain, after mechanical fall. Due to weakness, pain with muscle activation, mech of injury and limited ROM patient has a RTC injury, most like a tear. Due to acute nature of injury, I will try to calm symptoms, but if unable to I will refer back to physician. Rehabilitation Potential: Fair - Anticipated Interventions Patient/Client Instruction: Educate patient on: Condition, Plan of Care, Risk Factors, Benefits of Fitness Program For the Purpose of:: To improve decision making, To facilitate caregiver knowledge, To improve self management, To prevent re-injury, To improve ability to perform tasks related to life management, To improve tolerance to ADL's Therapeutic Exercise to Include: Strength training, Power training, Body mechanics, Postural training, Flexibilty training, Passive ROM, Active ROM, Justen Exercises, Scapular Strength/Stabilization For the Purpose of:: To decrease pain, To decrease swelling/inflammation, To increase ROM, To increase oxygenation perfusion, To improve muscle performance and motor function, To improve ability to perform ADL's, To improve performance and independence with ADL's, To improve health of tissue, To decrease soft tissue restriction, To increase flexibility/ROM Manual Therapy Techniques to Include: Mobilization, Passive ROM, Soft tissue mo bilization For the Purpose of:: To decrease pain, To decrease swelling/inflammation, To increase ROM, To improve nutrient delivery to tissue Cryotherapy (ice pack, ice massage): Yes Thermo therapy (hot pack): Yes Ultrasound (thermal/non thermal): Yes For the Purpose of:: To decrease pain, To decrease swelling/inflammation, To increase ROM, To improve nutrient delivery to tissue, To increase oxygenation perfusion Thank you for the opportunity to evaluate your patient. For Medicare and Medicare HMO plans, please review the plan of care and approve it. It will need to be FAXED BACK to us at [phone] for Medicare purposes. For Medicare only, by signing this I certify the plan of care. Please let me know if there are questions or concerns regarding this plan of care. Physician Signature: Date:
--- NOTE | 2019-10-18 12:32 | HP.PTDCSUM ---
HP - PT D/C Summary It has been my pleasure to treat FAVIO HE under orders from Mandeep Del Rio MD, for the diagnosis of BACK PAIN for a total of 11 visit(s). Discharge Date: 10/18/19 Please see the following information for a summary of their discharge status. - Subjective Subjective: PATIENT REPORTS HER BACK PAIN, LEG WEAKNESS AND DRAWING FORWARD IS ABOUT THE SAME NOW WHEN SHE STARTED PT. MAYBE A LITTLE BETTER - NO WORSE. FOLLOW UP PENDING WITH DR. KHAN TOMORROW FOR ALL ISSUES. CHEIF COMPLAINT AT THIS POINT IS HER RIGHT SHOULDER. PATIENT REPORTS SHE IS DOING HER BACK/LEG EX'S AT HOME IN THE MORNINGS BUT ADMITS TO NOT BEING CONSISTENT. - Pain BACK PAIN Pain Intensity (Out of 10): 0 Right great toe Pain Intensity (Out of 10): 0 right shldr Pain Intensity (Out of 10): 8 - Overall Improvement % Improvement: 10 - Objective Objective/Function: PATIENT WAS SEEN TODAY FOR RE-ASSESSMENT OF PROGRESS TOWARD THE SET PT GOALS AND THE NEED FOR FURTHER PHYSICAL THERAPY VS READINESS FOR DISCHARGE. PATIENT IS TOLERATING A HEP WHEN SHE HAS TIME BUT NOT IMPROVING SIGNIFICANTLY OVER ALL. BACK THER EX IS LIMITED TO SOME DEGREE BY SHLD ISSUES FROM FALL. UPON EXAM TODAY: INDEP GAIT INTO PT LIMPING ON RIGHT LE. NO ASSISTIVE DEVICES OR LOSS OF BALANCE. DECREASED CADANCE AND INCREASED TRUNK FLEXION. Motor deficit: RIGHT LE: HIP 4/5, KNEE EXT 4/5, KNEE FLEX 4/5, ANKLE 3-/5. LEFT HIP 4/5, KNEE EXT 4/5, KNEE FLEX 4/5, ANKLE 4/5. Sensory deficit: ALEXANDER LE LIGHT TOUCH SENSATION IS INTACT BUT FEET NT. ROM deficit: TIGHT ALEXANDER GASTROC SOLEUS COMPLEX'S AND HIP FLEXORS. Reflexes: NT. Dural Signs: NEGATIVE ALEXANDER LE'S. Lumbar mvmt loss: flex - MIN. ext - CRISTIAN. R SG - CRISTIAN. L SG - CRISTIAN. Core strength: POOR. Palpation: VERY TIGHT ALEXANDER LUMBAR PARASPINALS. NO ACUTE LOWER THORACIC OR LUMBAR TENDERNESS. - Goals Goal 1:: DECREASE C/O LOW BACK AND ALEXANDER LE SX'S. Goal Progress: Not Progressing Goal 2:: IMPROVE LIFTING, WALKING AND STANDING FUNCTION Goal Progress: Not Progressing Goal 3:: INSTRUCT IN PROPHYLAXIS Goal Progress: Not Progressing - Plan Plan: D/C TO HEP FOR LOW BACK DX - PATIENT AGREEABLE. FOLLOW UP PENDING WITH JOHANA HAYES FOR SHOULDER. - D/C Information If there are questions or concerns regarding this patient's physical therapy, please feel free to call me at [phone]. Thank you for the referral of this patient. Sincerely, Chelsey Bruce, PT, Cert MDT
== END 2019-10-18 19:00 | disposition home or self-care (01) ==
LOC: PT 11:30
PROVIDERS: Family Provider Internal Medicine; PCP Internal Medicine; Referring Provider Orthopaedic Surgery Orthopaedic Surgery of the Spine; Visit Provider Orthopaedic Surgery Orthopaedic Surgery of the Spine
DX: M48.062 Spinal stenosis, lumbar region with neurogenic claudication (principal); M25.511 Pain in right shoulder
CPT/HCPCS: 97035; 97110; 97113; 97140; 97162; 97164; 97530

== ENCOUNTER → 2019-10-27 09:43 | Outpatient (CLI) | payer MEDICARE, SELFPAY ==
[2018-10-13 14:21] VITALS: BMI 30.2
--- NOTE | 2019-10-27 09:49 | CDU_ITS ---
Reason For Study: carotid stenosis Rt. Velocities/BP Lt. Velocities/BP Prox CCA 123/13.4 cm/sec. Prox CCA 106.0/18.6 cm/sec. Mid CCA 91.7/13.4 cm/sec. Mid CCA 89.0/18.6 cm/sec. Dist CCA 79.9/20.0 cm/sec. Dist CCA 90.3/18.6 cm/sec. Prox ICA 57.8/14.7 cm/sec. Prox ICA 104.7/22.5 cm/sec. Mid ICA 57.8/14.7 cm/sec. Mid ICA 95.5/26.1 cm/sec. Dist ICA 68.2/21.3 cm/sec. Dist ICA 99.2/24.3 cm/sec. Rt. ICA/CCA = .7. Lt. ICA/CCA = 1.2. Prox ECA 64.3/8.2 cm/sec. Prox ECA 155.8/15.2 cm/sec. Rt. Vert. 44.7/13.4 cm/sec. Lt. Vert. 47.6/12.4 cm/sec. Right Extracranial There is intimal thickening but no significant atherosclerotic plaque noted in the right common carotid artery. There is intimal thickening but no significant atherosclerotic plaque noted in the right internal carotid artery. There is intimal thickening but no significant atherosclerotic plaque noted in the right external carotid artery. Antegrade flow is noted in the right vertebral artery. Left Extracranial There is intimal thickening but no significant atherosclerotic plaque noted in the left common carotid artery. There is heterogeneous, irregular atherosclerotic plaque noted in the left internal carotid artery. There is intimal thickening but no significant atherosclerotic plaque noted in the left external carotid artery. Antegrade flow is noted in the left vertebral artery. Procedure Carotid Duplex [id number]. The exam was diagnostic. Exam performed in department. Interpretation Summary No significant atherosclerotic plaque or stenosis noted in the right internal carotid artery. Mild (<50%) stenosis left extracranial internal carotid. Flow within the vertebral arteries is antegrade bilaterally. Ordering Physician: Gini Ojeda Performed By: Scott Davis RVT
== END ==
PROVIDERS: PCP Internal Medicine; Referring Provider Internal Medicine; Visit Provider Internal Medicine
DX: I65.23 Occlusion and stenosis of bilateral carotid arteries (principal); K76.0 Fatty (change of) liver, not elsewhere classified
CPT/HCPCS: 93880

== ENCOUNTER → 2020-01-31 10:55 | Outpatient (CLI) | payer MEDICARE, SELFPAY ==
[2018-10-13 14:21] VITALS: BMI 30.2
--- NOTE | 2020-01-31 11:30 | MRI_ITS ---
STUDY: MRI RIGHT SHOULDER REASON FOR EXAM: Right shoulder pain, limited range of motion, fall in August. TECHNIQUE: Standardized fat and water weighted pulse sequences were obtained in all 3 orthogonal planes. COMPARISON: Radiographs 09/19/2019. FINDINGS: There is a full-thickness tear of the supraspinatus tendon retracted approximately 3.3 cm to the level of the acromioclavicular joint and extending into the anterior infraspinatus tendon (T2 coronal images 6-13). There is mild subscapularis tendinosis (proton density axial images 14, 15) without discrete tendon tear. Normal teres minor tendon. There is mild atrophy with mild partial fat replacement of the supraspinatus muscle (T2 axial image 7). There is mild atrophy with mild partial fat replacement of the infraspinatus muscle (T2 axial image 12). Normal subscapularis muscle. Normal teres minor muscle. There is a glenohumeral joint effusion. There is superior migration of the humeral head secondary to the retracted rotator cuff tear. There is very mild bone edema in the greater tuberosity. Normal biceps labral complex. There is tendinosis of the intracapsular long biceps tendon (T2 sagittal images 15, 16). There is a tear of the posterior labrum with a small paralabral cyst (proton density axial image 10). Normal capsulo- ligamentous complex. There is acromioclavicular arthrosis with undersurface osteophytes (T2 sagittal images 16, 17). There is a Type III morphology (anterior hook) (T2 sagittal image 14), with a neutral orientation. There is a small volume of subacromial-subdeltoid bursal fluid. Normal visualized coracohumeral and coracoacromial ligaments. There is a small lipoma in the lateral deltoid muscle (T2 sagittal image 3) measuring 2.3 cm in length. Normal trapezius muscle. MRI/Upper Ext Joint Only(Routine) IMPRESSION: Full-thickness tear of the supraspinatus and infraspinatus tendons. Mild subscapularis tendinosis. Mild atrophy of the supraspinatus and infraspinatus muscles. Tendinosis of the long biceps tendon. Posterior labral tear with small paralabral cyst. Acromioclavicular arthrosis. Glenohumeral joint fluid communicating with the subacromial-subdeltoid bursa. Electronically Signed: Hoang Wade MD at 12:34 EDT Tel , Service support ,
== END ==
PROVIDERS: PCP Internal Medicine; Referring Provider Internal Medicine; Visit Provider Internal Medicine
DX: M25.511 Pain in right shoulder (principal)
CPT/HCPCS: 73221

== ENCOUNTER → 2020-06-19 07:40 | Outpatient (CLI) | payer MEDICARE, SELFPAY ==
[2018-10-13 14:21] VITALS: BMI 30.2
--- NOTE | 2020-06-19 07:43 | US_ITS ---
STUDY: ABDOMINAL ULTRASOUND - RIGHT UPPER QUADRANT REASON FOR VISIT: Female, 75 years old FATTY LIVER -- S/P CHOLECYSTECTOMY 2018 TECHNIQUE: Ultrasound evaluation of the right upper quadrant was performed with real-time and static martini-scale imaging. TECHNICAL QUALITY: Adequate. COMPARISON: Comparison is made with prior examination dated 05/05/2019. FINDINGS: Liver: The liver is enlarged and measures 19.9 cm. There is increased echogenicity consistent with fatty infiltration. The bile ducts are within normal limits. There is hepatic color flow. The direction of portal flow is hepatopetal. There is no demonstrated mass lesion. Gallbladder: The patient is status post cholecystectomy. Common Bile Duct (C.B.D.): The common bile duct measures 5.1 mm. Pancreas: Normal size of the head, body and tail of the pancreas. There is normal echogenicity of the pancreas. There is no demonstrated pancreatic mass or cyst. Right Kidney: Normal size of the right kidney. The right kidney measures 13 cm x 5.7 cm x 4.4 cm. Normal renal cortex. The right cortex measures 1.9 cm. There is no demonstrated renal mass or cyst. There is no right hydronephrosis. US/Liver IMPRESSION: Mild hepatomegaly and diffuse fatty infiltration of the liver. Electronically Signed: Wellington Fontaine, at 15:02 EDT , Service support ,
--- NOTE | 2020-06-19 07:43 | BI_ITS ---
MAMMOGRAPHY - BILATERAL SCREENING REASON FOR EXAM: Female, 75 years old. Routine annual screening examination. PERTINENT HISTORY: Non-contributory. Remote left stereotactic breast biopsy TECHNIQUE: Digital bilateral breast jasper (3D mammographic acquisition) in the CC and MLO projections. 2-D mediolateral oblique (MLO) and craniocaudad (CC) views of both breasts were obtained. CAD: Full Field Digital Mammography with Computer Added Detection was performed. COMPARISON: Comparison is made with prior study dated 05/05/2019 and 04/21/2018. FINDINGS: Breast Composition: The breasts are heterogeneously dense, which may obscure small masses. There are no dominant masses or suspicious calcifications. Once again, 2 tissue markers are seen in the deep upper outer aspect of the left breast. No other significant abnormalities are identified. There has been no significant change since the prior study. BI/SCREEN MAMM (CAD) W/JASPER BILAT IMPRESSION: Stable bilateral screening mammogram. Yearly follow-up mammogram recommended. (A) ASSESSMENT CATEGORY: BIRADS Category 2: Benign. A letter regarding these results will be sent to the patient by the facility within 30 days. Approximately 10% of breast cancers are not detected by mammography. A normal mammogram should not delay biopsy of a clinically suspicious abnormality. [id number] Electronically Signed: Wellington Fontaine, at 9:21 EDT , Service support ,
--- NOTE | 2020-06-19 08:27 | BD_ITS ---
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 COMPARISON: Comparison is made with prior study dated 04/21/2018. FINDINGS: Lumbar Spine (L1-L4): g/cm2 (0.971) / T-score (-1.7) / Z-score (0.1) Findings are suggestive of osteopenia with a moderate fracture risk. Left Femur Total: g/cm2 (0.904) / T-score (-0.8) / Z-score (1.0) Left Femoral Neck: g/cm2 (0.855) / T-score (-1.3) / Z-score (0.7) Right Femur Total: g/cm2 (0.845) / T-score (-1.3) / Z-score (0.6) Right Femoral Neck: g/cm2 (0.809) / T-score (-1.6) / Z-score (0.4) The T-Scores on the most recent prior examination were: Lumbar Spine (L1-L4): There has been worsening of bone density since the previous examination. Left Femur Total: which represents a worsening of 6.3%. Right Femur Total: which represents a worsening of 6.6%. BD/Dexa Bone Density Study IMPRESSION: The patient is considered osteopenic as outlined below according to World [place] Organization (WHO) criteria with a moderate fracture risk. There has been worsening of bone density since the previous examination. Reference Information: The T-score is the number of standard deviations above or below the standard which is normal for young adults at their peak bone mineral density. The World Health Organization (WHO) interprets the T-scores as follows: Above -1 Normal bone density Between -1 and -2.5 Osteopenia Equal to / or below -2.5 Osteoporosis As a practical clinical guideline, osteopenia may be graded as follows: Mild -1 through -1.5 Moderate -1.6 through -2.0 Severe -2.1 through -2.4 The Z-score is the number of standard deviations above or below age-matched controls. A Z-score of less than -1.5 would be considered abnormal. References: 1. NIH Osteoporosis and Related Bone Diseases www osteo.org 2. International Society for Clinical Densitometry www iscd.org 3. National Osteoporosis Foundation www nof.org Electronically Signed: Wellington Fontaine, at 15:33 EDT , Service support ,
== END ==
PROVIDERS: PCP Internal Medicine; Referring Provider Internal Medicine; Visit Provider Internal Medicine
DX: Z12.31 Encounter for screening mammogram for malignant neoplasm of breast (principal); Z78.0 Asymptomatic menopausal state
CPT/HCPCS: 76705; 77063; 77067; 77080

== ENCOUNTER 2020-08-09 13:30 | Outpatient (RCR) | payer MEDICARE, SELFPAY ==
[2018-10-13 14:21] VITALS: BMI 30.2
--- NOTE | 2020-04-19 14:48 | HP.PTEVAL ---
Patient's Visit Information FAVIO HE is a 75 year old F referred to Physical Therapy by Dr. Shad Payne MD with a diagnosis of Right Reverse Total Shoulder. Date of Evaluation: 04/19/20 Physical Therapist: Astrid Garcia DPT - Visit Plan Frequency: 2x /Week Duration: 4 Weeks Plan: Right Reverse Total Shoulder (04/09/2020) please follow protocol. - Subjective Fell in August- went through therapy- finally had an MRI which showed a big tear in the tendon so she ended up having Dr. Payne do a reverse total shoulder on April 09, 2020. She stayed the night and went home the next day. Daughter lives with her and can help out as needed. Right hand dominate. She had more pain in the shoulder initially then she does right now. She is currertly taking Percosets every 5 hours and weaning off. She takes 2 prior to bed and then she can sleep through the night- sleeping in a recliner- she normally sleeps in a bed. Usually a side sleeper on the right. Reports the pain is in the anterior shoulder and biceps. No radiating pain. No N/T in the fingers. She keeps moving her hands and fingers. Is wearing the sling all the time- takes it off for exercises (passive range of motion, pendulums and finger exercises). Worst: 4/10 Agg: when she is showering it gets tired and makes it ache- ready to put the sling back one- once she puts the sling back on the ache diminishes- ice machine during the day and at night. Best: 0/10. 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 Is not a very sports active person but just wants to be able to walk. PMHx:Mitrovalve Meds: Percoset, Crestor - Objective Posture: FH, RS- wearing a sling on the right UE with guarding. Gait: no arm swing on the right due to the sling. Observation: incision healing well no s/s of infection. Palpatoin: tender along incision suprised at how much feeling she is getting back. ROM: AROM: cervical: WNL, Elbow: WNL, Wrist: WNL PROM: IR: to belly, ER: 15 degrees with pain (4/10), Flexion: 80 degrees with pain (6/10). 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, Elbow: Isometric- 4/5, Shoulder: not tested - Goals Goal 1:: Patient will be I with HEP and progression Goal Time Frame: 4-6 Weeks Goal 2:: Patient will demo full PROM to AROM (as per protocol) in the right UE Goal Time Frame: 4-6 Weeks Goal 3:: Patient will return to all normal ADL's (as per protocol) with less than 2/10 pain Goal Time Frame: 4-6 Weeks Goal 4:: Patient will maintain proper posture t/o tx session to demo increased scap s/s - Rehabilitation Potential Physical Therapy Diagnosis: Patient presents s/p Right Reverse Total Shoulder (04/09/2020)- she has decreased ROM,strength and muscular endurance leading to poor posture and increased pain with ADL's. Rehabilitation Potential: Good - Anticipated Interventions Patient/Client Instruction: Educate patient on: Benefits of Fitness Program Therapeutic Exercise to Include: Strength training, Endurance training, Coordination, Body mechanics, Postural training, Neuromotor development, Passive ROM, Active ROM, Scapular Strength/Stabilization For the Purpose of:: To improve muscle performance and motor function Manual Therapy Techniques to Include: Passive ROM, Soft tissue mobilization For the Purpose of:: To increase ROM, To improve nutrient delivery to tissue TENS: Yes Cryotherapy (ice pack, ice massage): Yes Thermo therapy (hot pack): Yes Ultrasound (thermal/non thermal): No Thank you for the opportunity to evaluate your patient. For Medicare and Medicare HMO plans, please review the plan of care and approve it. It will need to be FAXED BACK to us at [phone] for Medicare purposes. For Medicare only, by signing this I certify the plan of care. Please let me know if there are questions or concerns regarding this plan of care. Physician Signature: Date:
--- NOTE | 2020-05-17 15:27 | HP.PTREVAL ---
Dr. Shad Payne MD, It has been my pleasure to treat FAVIO HE over the last 9 visits for Right Reverse Total Shoulder. Please see the progress note below for an update on the physical therapy plan of care! Subjective: Patient reports that she can wash her back and take it out to the side but its hard to get her hand over her head. Worst: 1/10 it just feels like its pulling. Objective/Function: Palpation: not tender to touch. Observation: incisoins healing well. ROM: AROM: Flexion: 100 degrees, Abd: 90 degrees, IR: to hip, ER: neutral. Strength Isometric at 90/90:4/5. She is still wearing sling guarding of the right UE. Plan Plan: 05/21 begin deltoid strength, rows, shoulder blade strengthening per protocol. 04/30/20 begin IR, flexion and external rotation range of motion to full. Begin isometrics for deltoid. Goals Goal 1:: Patient will be I with HEP and progression Goal Time Frame: 4-6 Weeks Goal 2:: Patient will demo full PROM to AROM (as per protocol) in the right UE Goal Time Frame: 4-6 Weeks Goal 3:: Patient will return to all normal ADL's (as per protocol) with less than 2/10 pain Goal Time Frame: 4-6 Weeks Goal 4:: Patient will maintain proper posture t/o tx session to demo increased scap s/s Anticipated Interventions Patient/Client Instruction: Educate patient on: Benefits of Fitness Program Therapeutic Exercise to Include: Strength training, Endurance training, Coordination, Body mechanics, Postural training, Neuromotor development, Passive ROM, Active ROM, Scapular Strength/Stabilization For the Purpose of:: To improve muscle performance and motor function Manual Therapy Techniques to Include: Passive ROM, Soft tissue mobilization For the Purpose of:: To increase ROM, To improve nutrient delivery to tissue TENS: Yes Cryotherapy (ice pack, ice massage): Yes Thermo therapy (hot pack): Yes Ultrasound (thermal/non thermal): No Please do not hesitate to contact me at [phone] by phone or if you have questions or concerns regarding this new plan of care! Sincerely, Astrid Garcia DPT
--- NOTE | 2020-06-14 15:56 | HP.PTREVAL_ITS ---
Dr. Shad Payne MD, It has been my pleasure to treat FAVIO HE over the last 17 visits for Right Reverse Total Shoulder (04/09/20). Please see the progress note below for an update on the physical therapy plan of care! Subjective: She feels the shoulder is really coming along- she still lacks ROM,strength and muscular endurance. Little to no pain Objective/Function: Posture: FH, RS- no sling or guarding of the right UE. Gait: good arm swing and trunk rotation. Palpatoin: not tender to touch. ROM: AROM: cervical: WNL, Elbow: WNL, Wrist: WNL Shoulder: flexion: 100 degrees, abd: 120 degrees, IR: to pocket, ER: 50 degrees Strength: Green Promotions Specialist: good, Elbow: Isometric- 4+/5, Shoulder: 4/5 at /90 Plan Plan: 05/21: begin deltoid strength, rows, shoulder blade strengthening per protocol. 04/30/20: begin IR, flexion and external rotation range of motion to full. Begin isometrics for deltoid. 06/14/2020: Continue to progress as tolerated through ROM and strength Goals Goal 1:: Patient will be I with HEP and progression Goal Time Frame: 4-6 Weeks Goal 2:: Patient will demo full PROM to AROM (as per protocol) in the right UE Goal Time Frame: 4-6 Weeks Goal 3:: Patient will return to all normal ADL's (as per protocol) with less than 2/10 pain Goal Time Frame: 4-6 Weeks Goal 4:: Patient will maintain proper posture t/o tx session to demo increased scap s/s Anticipated Interventions Patient/Client Instruction: Educate patient on: Benefits of Fitness Program Therapeutic Exercise to Include: Strength training, Endurance training, Coordination, Body mechanics, Postural training, Neuromotor development, Passive ROM, Active ROM, Scapular Strength/Stabilization For the Purpose of:: To improve muscle performance and motor function Manual Therapy Techniques to Include: Passive ROM, Soft tissue mobilization For the Purpose of:: To increase ROM, To improve nutrient delivery to tissue TENS: Yes Cryotherapy (ice pack, ice massage): Yes Thermo therapy (hot pack): Yes Ultrasound (thermal/non thermal): No Please do not hesitate to contact me at [phone] by phone or if you have questions or concerns regarding this new plan of care! Sincerely, CHRISTINE RiddleT
--- NOTE | 2020-07-11 14:01 | HP.PTREVAL ---
Dr. Shad Payne MD, It has been my pleasure to treat FAVIO HE over the last 25 visits for Right Reverse Total Shoulder (04/09/20). Please see the progress note below for an update on the physical therapy plan of care! Subjective: Patient report no pain unless she is doing her exercise which makes it sporatic. She is able to do her hair- she is still stretching behind her back. When she vacuum's she runs out of steam. She can lift a full gallon of mild Objective/Function: Posture: FH, RS- no guarding of the UE Gait: good arm swing and trunk rotation. Palpatoin: not tender to touch. ROM: AROM: cervical: WNL, Elbow: WNL, Wrist: WNL Shoulder: flexion: 120 degrees, abd: 130 degrees, IR: to buttocks, ER: 50 degrees Strength: Music Professor: good, Elbow: Isometric- 4+/5, Shoulder: 4+/5 at 90/90 Plan Plan: 1x a week for 4 weeks to progress home exercise program Goals Goal 1:: Patient will be I with HEP and progression Goal Time Frame: 4-6 Weeks Goal 2:: Patient will demo full PROM to AROM (as per protocol) in the right UE Goal Time Frame: 4-6 Weeks Goal 3:: Patient will return to all normal ADL's (as per protocol) with less than 2/10 pain Goal Time Frame: 4-6 Weeks Goal 4:: Patient will maintain proper posture t/o tx session to demo increased scap s/s Anticipated Interventions Patient/Client Instruction: Educate patient on: Benefits of Fitness Program Therapeutic Exercise to Include: Strength training, Endurance training, Coordination, Body mechanics, Postural training, Neuromotor development, Passive ROM, Active ROM, Scapular Strength/Stabilization For the Purpose of:: To improve muscle performance and motor function Manual Therapy Techniques to Include: Passive ROM, Soft tissue mobilization For the Purpose of:: To increase ROM, To improve nutrient delivery to tissue TENS: Yes Cryotherapy (ice pack, ice massage): Yes Thermo therapy (hot pack): Yes Ultrasound (thermal/non thermal): No Please do not hesitate to contact me at [phone] by phone or if you have questions or concerns regarding this new plan of care! Sincerely, Astrid Garcia DPT
--- NOTE | 2020-08-09 13:49 | HP.PTDCSUM_ITS ---
It has been my pleasure to treat FAVIO HE referred by Dr. Shad Payne MD, with the diagnosis of Right Reverse Total Shoulder (04/09/20) for a total of 29 visit(s). Discharge Date: Please see the following information for a summary of their discharge status. Subjective: Patient reports that she was trying to put a smoke detector in the other day but isnt able to keep her hand over head. Patient feel that she is 92% back to normal activities. She has the ROM but lacks the endurance Right Shoulder Pain Intensity (Out of 10): 0 % Improvement: 92 Objective/Function: Posture: FH, RS- no guarding of the UE Gait: good arm swing and trunk rotation. Palpatoin: not tender to touch. ROM: AROM: cervical: WNL, Elbow: WNL, Wrist: WNL Shoulder: flexion: 140 degrees, abd: 150 degrees, IR: to pocket, ER: 50 degrees Strength: Family Resource Management Professor: good, Elbow: Isometric- 4+/5, Shoulder: 4+/5 at 90/90 Goal 1:: Patient will be I with HEP and progression Goal Progress: Goal Met Goal 2:: Patient will demo full PROM to AROM (as per protocol) in the right UE Goal Progress: Progressing Goal 3:: Patient will return to all normal ADL's (as per protocol) with less than 2/10 pain Goal Progress: Goal Met Goal 4:: Patient will maintain proper posture t/o tx session to demo increased scap s/s Goal Progress: Goal Met Plan: Discharge to [facility] If there are questions or concerns regarding this patient's physical therapy, please feel free to call me at [phone]. Thank you for the referral of this patient. Sincerely, Astrid Garcia DPT
== END 2020-08-09 19:00 | disposition home or self-care (01) ==
LOC: PT 13:30
PROVIDERS: PCP Internal Medicine; Referring Provider Orthopaedic Surgery; Visit Provider Orthopaedic Surgery
DX: S46.011D Strain of muscle(s) and tendon(s) of the rotator cuff of right shoulder, subsequent encounter (principal)
CPT/HCPCS: 97110; 97140; 97162; 97164

== ENCOUNTER 2020-10-11 21:14 | Inpatient (IN) | payer MEDICARE, SELFPAY ==
[2018-10-13 14:21] VITALS: BMI 30.2
--- NOTE | 2020-10-11 | HERN_PTH ---
PATIENT: FAVIO HE LOC: [facility] U#:[id number] AGE/SX: 75/F ROOM: [facility] RE10/12/[address]: Dr. Jose Juan Zhu DO : 1945 BED: 1 DIS: 10/17/2020 SPEC #: [id number] RECD: 10/12/20 06:55 STATUS: NORMAN XANDER #: [id number] KARISSA: 10/11/20 00:[address]: Todd Moe DEPT: SURGICAL PATHOLOGY RECD BY: Guillermo Whitfield ENTERED: 10/12/20 09:16 SP TYPE: Hernia OTHR DR: Dr. Gini Ojeda DO Tissues: A - Small intestine biopsy B - HERNIA Procedures: Surgery Specimen Level II Surgery Specimen Level IV HEADER OPERATION: Exploratory laparotomy, BSO PRE-OP DIAGNOSIS: Incarcerated ventral hernia; hepatomegaly, hepatic steatosis TISSUE SUBMITTED: A - Small bowel, B - Hernia sac MICROSCOPIC DIAGNOSIS A. Small bowel, segmental resections: Metastatic carcinoma with serosal fibrosis. Acute enteritis with focal ulceration, denudation of mucosa and vascular congestion. Seven out of seven lymph nodes with no pathologic change. Mucosal margins are free of carcinoma. See comment. B. Hernia sac, herniorrhaphy: Metastatic carcinoma and fibrosis. See comment. AM:ghazal 10/16/2020 COMMENT A. The findings are consistent with incarcerated bowel. Immunohistochemistry ([id number]) supports the above diagnosis and favors an ovarian primary. B. Immunohistochemistry ([id number]) supports the above diagnosis and favors an ovarian primary. Case has been reviewed in consultation with Dr. Estrada who concurs with the above diagnosis. IDC:HILDA MICROSCOPIC DESCRIPTION Slides are reviewed. GROSS DESCRIPTION A - Received in fixative is one container labeled with the patient's name and designated small bowel. The specimen consists of two segments of bowel and one mucosal donut. The smaller segment measures 11 cm and contains a normal amount of surrounding fibrofatty tissue. The second fragment is Sshaped and measures 12 cm in length. No gross perforations are identified in either fragment. The Sshaped fragment contains some serosal fibrinous adherent material in the serosa. This area measures 3 x 2 x 0.8 cm. Also present in the specimen container is what appears to be a mucosal donut measuring 2 x 1 x 0.5 cm. Serial sections do not reveal mucosal mass lesions. Carpet Cleaning Technician sections are submitted as follows: 1 - presumed mucosal donut free in container, 2 - mucosal margin from smaller segment of bowel, 3 - entry level marketing representative sections of smaller segment of bowel, 4 - mucosal margin of larger segment of bowel, 5-11 - entry level marketing representative sections from large segment of bowel. / AM:ghazal 10/15/20 B - Received in fixative is one container labeled with the patient's name and designated hernia sac. The specimen consists of two pieces of light mejia soft tissue that in aggregate measure 10 x 6 x 1 cm. No mass lesion is identified. Sections do not reveal any mass lesion. Carpet Cleaning Technician sections are submitted in 4 cassette. / SJ:ghazal 10/12/20 TC:0 [facility]: [id number], [id number] ADDENDUM ADDENDUM ADDENDUM ADDENDUM ADDENDUM ADDENDUM ADDENDUM ADDENDUM ADDENDUM ADDENDUM ADDENDUM ADDENDUM 12/14/2020 10:17 ADDENDUM 12/14/2020 10:17 ADDENDUM 12/14/2020 10:17 ADDENDUM 12/14/2020 10:17 ADDENDUM 12/14/2020 10:17 This addendum is added to incorporate an outside pathology consultation report. The case was examined at [facility] (#[id number]) and the following diagnosis was rendered. A. Small bowel, resection: Small intestine with serosal involvement by metastatic carcinoma. B. Hernia sac, resection: Metastatic carcinoma. Please see complete above mentioned consultation report in EMR
--- NOTE | 2020-10-11 | IMM_PTH ---
PATIENT: FAVIO HE LOC: [facility] U#:[id number] AGE/SX: 75/F ROOM: [facility] RE10/12/[address]: Dr. Jose Juan Zhu DO : 1945 BED: 1 DIS: 10/17/2020 SPEC #: [id number] RECD: 10/16/20 13:24 STATUS: NORMAN RERyann #: [id number] KARISSA: 10/11/20 00:[address]: Todd Moe DEPT: IMMUNOHISTOCHEMISTRY RECD BY: Julieth Tejada ENTERED: 10/16/20 13:26 SP TYPE: IMMUNO OTHR DR: DO Dr. Jose Juan Prather DO Dr. Prakash Chand, MD Tissues: A - Small intestine biopsy B - HERNIA Procedures: Synapto (add) NAPSIN A (add) CA-125 (add) CD56 (add) CEA (add) CHROMO (add) CK19 (add) CK20 (add) CK7 (add) CK8 (add) CARRASCO-2 (add) MAMM (add) P53 (add) WY (add) TTF1 (add) Pankeratin (add) GATA3 (add) ER (initial) PHYSICIAN & INSTITUTION [place] [id number] SPECIMEN INFORMATION: Tissue Source: A - Small bowel, B - Hernia sac Clinical Info: Incarcerated ventral hernia, hepatomegaly, hepatic steatosis Specimen Number: [id number] A6 & B1 CPT code: 15308 x2, 53276 x34 METHODOLOGY: Deparaffinized sections of prefer/formalin-fixed tissue or PAP/DQ stained slides are incubated with monoclonal/polyclonal antibodies/oligonucleotide probes. Localization is made via biotin free immunoperoxidase method. Appropriate controls are performed and reacted as expected. Results on target cell population are indicated in the following table: RESULTS: ANTIBODY / CLONE RESULT Block A6 ER (6F11) positive WY (1E2) positive, dim Mammaglobin (31A5) negative GATA3 (L50-823) negative AE1-3 (AE1/AE3/PCK26) positive CK7 (OV-TL12/30) positive CK8 (50qyvhV15) positive CK20 (KS20.8) negative CARRASCO-2 (SP21) positive CK19 (A53-B/A2.26) positive CD56 (123C3.D5) negative Chromo (LK2H10) negative Synapto (polyclonal) negative TTF-1 (8G7G3/1) negative Napsin A (Rabbit Polyclonal) negative CEA (11-7/TF-3HB-1) negative CA125 (OC125) positive P53 (DO-7) positive, 2%, dim Block B1 ER (6F11) positive WY (1E2) positive, dim Mammaglobin (31A5) negative GATA3 (L50-823) negative AE1-3 (AE1/AE3/PCK26) positive CK7 (OV-TL12/30) positive CK8 (28ciqgX14) positive CK20 (KS20.8) negative CARRASCO-2 (SP21) positive CK19 (A53-B/A2.26) positive CD56 (123C3.D5) negative Chromo (LK2H10) negative Synapto (polyclonal) negative TTF-1 (8G7G3/1) negative Napsin A (Rabbit Polyclonal) negative CEA (11-7/TF-3HB-1) negative CA125 (OC125) positive P53 (DO-7) positive, 3% These tests were developed and their performance characteristics determined by [facility]. They may not have been cleared or approved by the U.S. Food and Drug Administration. The FDA has determined that such clearance or approval is not necessary. The above immunohistochemical/dualISH markers are ordered and reviewed by the Pathologist. INTERPRETATION: A. Small bowel, segmental resections: Metastatic non-small cell carcinoma. See comment. B. Hernia sac, herniorrhaphy: Metastatic non-small cell carcinoma. See comment. 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 Case has been reviewed in consultation with Dr. Estrada who concurs with the above diagnosis. IDC:HILDA
[2020-10-11 21:15] VITALS: BP 154/86; PULSE 101; RESP 16; TEMP 37.3; O2SAT 96; BMI 29.5
--- NOTE | 2020-10-11 21:42 | CT_ITS ---
STUDY: CT ABDOMEN AND PELVIS WITH CONTRAST REASON FOR EXAM: Female, 75 years old patient with abdominal pain, hernia and diarrhea. RADIATION DOSAGE (If Supplied By Facility): CTDIvol = ( 15.00 ) mGy, DLP = ( 1295.41 ) mGycm TECHNIQUE: Transaxial images were obtained from the dome of the diaphragm to the symphysis pubis without oral contrast. 100 mL of Isovue-370 was administered. Sagittal and coronal images were reconstructed. Individualized dose optimization techniques were used for this CT. COMPARISON: Liver ultrasound dated 06/19/2020. FINDINGS: There is right lower lobe pulmonary nodule measuring approximately 1.4 cm in greatest dimension. The visualized portions of the heart are within normal limits. There is decreased attenuation of the liver consistent with steatosis. The liver is enlarged measuring up to 19.8 cm in greatest dimension. Normal gallbladder and extrahepatic biliary system. Normal spleen. Normal pancreas. Normal bilateral adrenal glands. Normal right kidney. There is a focal parenchymal loss from the lower pole left kidney possibly secondary to previous infection or ischemia. Tiny lucencies are visible within the left kidney that may represent tiny cysts. The largest measures up to 1.2 cm. Normal visualized stomach. There is no evidence for ascites or pneumoperitoneum. There is some fluid filled small bowel with maximum transverse dimension of approximately 2.8 cm. There is fluid filled colon with scattered diverticula consistent with diarrhea. The appendix is visualized and appears normal. There is minimal atherosclerotic calcification of the abdominal aorta with elongation and tortuosity, but without a demonstrated aneurysm. Normal inferior vena cava. Normal retroperitoneum. Normal urinary bladder. There is absence of the uterus consistent with a prior hysterectomy. There is a ventral hernia containing incarcerated small bowel. There is some fluid present within the hernia sac. There are diffuse degenerative changes of the visualized lumbar spine. The bones appear osteopenic. CT/Abdomen/Pelvis WITH Contrast IMPRESSION: 1. Incarcerated ventral hernia with the findings suggesting early small bowel obstruction. 2. Hepatomegaly and hepatic steatosis. Electronically Signed: Archana Johnson MD at 0:27 EST , Service support ,
--- NOTE | 2020-10-11 21:43 | ED.DCSUM_ITS ---
History of Present Illness Chief Complaint: Abd Pain Informant: Patient Narrative: 75-year-old female presenting with abdominal pain. She states she has a history of a hernia in the right lower abdomen which has been there for about a year. She told her primary care physician who told her to watch it and to make sure that she is having normal bowel movements. Patient states she started having pain today which is not usual with her hernia. She had some nausea as well. The pain is currently going down. Patient states she called her PCP who sent her to the emergency room. Patient has not had any vomiting but states she was mildly nauseous. No fevers or chills. She had a bowel movement today. No urinary complaints. Past Medical History - Allergies and Home Meds Allergies/Adverse Reactions: Allergies penicillin G Allergy (Unknown, Verified 10/11/20 21:15) Unknown Primary Care Physician: Gini Ojeda DO [Primary Care Provider] - Past Medical History: - - Hyperlipidemia, COPD, hypertension, Surgical History: cholecystectomy Lives: Spouse/ Significant Other Smoking Status: Never smoker Alcohol: None Drugs: None Review of Systems General: Denies: Chills, Fever Eyes: Denies: Visual changes - left, Visual changes - right ENT: Denies: Bilateral ear pain Cardiovascular: Denies: Chest pain, Palpitations Respiratory: Denies: Dyspnea, Cough Gastrointestinal: Reports: Abdominal pain, Nausea. Denies: Diarrhea, Constipation Genitourinary: Denies: Dysuria, Hematuria Musculoskeletal: Denies: Myalgias, Arthralgias Skin: Denies: Rash, Abscess Neurological: Denies: Headache, Weakness Psych: Denies: Depression, Anxiety Physical Exam Vital Signs/Narrative: Vital Signs Temp Pulse Resp BP Pulse Ox 10/11/20 21:15 99.1 F 101 H 16 154/86 H 96 Inital Vital Signs reviewed: Yes General: Well nourished, No Acute Distress Head: Normocephalic, Atraumatic Eyes: Perrl, EOMI ENT: Moist mucous membranes, No rhinorrhea Cardiovascular: Regular rate, Regular rhythm Respiratory: No distress, CTA bilaterally Abdomen: Tender - Tenderness to palpation in the right lower abdominal wall v entrally. There is a 4 cm hernia in this region. Its not reducible. Extremities: Nontender, No edema Skin: Normal color, No rash Neurological: Alert, Oriented x3, Cranial nerves II-XII grossly intact Psychological: Normal affect, Normal Mood Diagnostic/Tx/Re-eval Clinical Impression(s) from Imaging Studies Abdomen/Pelvis CT 10/11/20 21:42 IMPRESSION: 1. Incarcerated ventral hernia with the findings suggesting early small bowel obstruction. 2. Hepatomegaly and hepatic steatosis. Electronically Signed: Archana Johnson MD at 0:27 EST , Service support , Laboratory Data 10/11/20 10/11/20 10/11/20 21:30 21:30 22:05 WBC 20.6 H RBC 5.21 Hgb 15.7 H Hct 47.5 H MCV 91.2 MCH 30.1 MCHC 33.1 RDW Std Deviation 47.8 H RDW Coeff of Jaciel 14.2 Plt Count 333 MPV 9.3 Immature Gran % (Auto) 0.400 Neut % (Auto) 82.5 H Lymph % (Auto) 9.9 L [place] % (Auto) 6.4 Eos % (Auto) 0.5 Baso % (Auto) 0.3 Absolute Neuts (auto) 17.0 H Absolute Lymphs (auto) 2.05 Nucleated RBC % 0 Sodium 137 Potassium 3.8 Chloride 104 Carbon Dioxide 26.0 Anion Gap 7 BUN 14 Creatinine 0.73 Estim Creat Clear Calc 49.24 Est GFR (MDRD) Af Amer 100 Est GFR (MDRD) Non-Af 82 BUN/Creatinine Ratio 19.2 Glucose 123 H Lactic Acid 2.2 H* Calcium 9.3 Total Bilirubin 1.20 H AST 26 ALT 41 Alkaline Phosphatase 70 Total Protein 7.8 Albumin 4.2 Globulin 3.6 Albumin/Globulin Ratio 1.2 - Medical Decision Making 75-year-old female presenting with abdominal hernia which she states she has had for over a year and it has been out. She states she was told by her primary care provider to make sure she is having regular bowel movements. Patient states today it became very painful and she became nauseous. Patient states that the pain is actually going down however her primary care sent her in for evaluation. Dante she does have a ventral hernia which is not reducible this is in the right lower abdomen. Patient had lab work drawn which shows a leukocyt osis of 20,000. She has a lactic acid of 2.2. Renal function electrolytes are normal. CT of the abdomen pelvis with IV and p.o. contrast shows incarcerated ventral hernia with the findings suggesting early small bowel obstruction. Patient was discussed with Dr. Moe who is coming in to evaluate the patient. Likely patient will need to go to the OR. Patient will be signed out to incoming ED physician monitoring until the surgeon gets here. Impression: 1. Incarcerated ventral wall hernia 2. Early bowel obstruction ED Disposition - Plan for ED Patient: Disposition: Acute Care Hospital [facility] Referrals: Rusty,DO Gini [Primary Care Provider] -
[2020-10-11 22:00] LABS: Absolute Lymphocyte Count 2.05 X10^3/uL (0.83-4.51); Basophil# 0.06 X10^3/uL; Basophil% 0.3 % (0-1); Eosinophils% 0.5 % (0-5); Hematocrit 47.5 % (37-47); Hemoglobin 15.7 g/dL (12.0-15.0); Lymphocyte # 2.05 X10^3/ul (4.0); Lymphocyte % 9.9 % (19-41); Mean Corp Hgb Conc 33.1 g/dL (32-36); Mean Corpuscular Hgb 30.1 pg (27.0-32.0); Mean Corpuscular Volume 91.2 fL (81-99); Mean Platelet Vol. 9.3 fl (6.2-12.0); Monocyte# 1.32 X10^3/uL; Monocyte% 6.4 % (0-10); NRBC Flagged by Analyzer 0 % (0-5); Neutrophil % 82.5 % (47-70); Platelet Count 333 K/mm3 (150-450); RBC Distribution Width CV 14.2 % (11.6-14.6); RBC Distribution Width SD 47.8 fl (35.1-43.9); Red Blood Count 5.21 M/mm3 (4.2-5.4); White Blood Count 20.6 K/mm3 (4.4-11.0)
[2020-10-11] MEDS: 0.9% Normal Saline 1,000 ML 1000 ML IV (22:04)
[2020-10-11] MEDS: Ondansetron 4 MG/2 ML Vial IV (22:05)
[2020-10-11 22:08] LABS: ALB/GLOB Ratio 1.2 RATIO (0.9-2.4); AST(SGOT) 26 U/L (15-37); Alanine Aminotransfer ALT/SGPT 41 U/L (13-56); Albumin, Serum 4.2 g/dL (3.2-5.0); Alkaline Phosphatase 70 U/L (45-117); Anion Gap 7 (5-15); BUN 14 mg/dL (7-18); BUN/Creat Ratio 19.2 RATIO (10-20); Calcium,Total 9.3 mg/dL (8.5-10.1); Chloride 104 mmol/L (98-107); Creatinine, Serum 0.73 mg/dL (0.55-1.02); EST Glomerular Filtration Rate 82 mL/min (>60); Est Glom Filt Rate - Afr Amer 100 mL/min (>60); Estimated Creatinine Clearance 49.24 ml/min; Globulin 3.6 g/dL (2.2-4.2); Glucose 123 mg/dL (74-106); Potassium 3.8 mmol/L (3.5-5.1); Protein, Total 7.8 g/dL (6.4-8.2); Sodium Level 137 mmol/L (136-145)
[2020-10-11 22:48] LABS: Lactic Acid 2.2 mmol/L (0.4-1.9)
[2020-10-11 23:14] VITALS: BP 149/82; PULSE 80; RESP 18; TEMP 37.2; O2SAT 95
[2020-10-12] VITALS (21 sets, daily range): BP systolic 123–191; BP diastolic 59–93; PULSE 85–151; RESP 16–19; TEMP 36.6–37.7; O2SAT 91–98; BMI 29.5; BMI 32.2
--- NOTE | 2020-10-12 00:46 | EKG12_ITS ---
Test Reason : ABD PAIN Blood Pressure : / mmHG Vent. Rate : 088 BPM Atrial Rate : 088 BPM P-R Int : 128 ms QRS Dur : 084 ms QT Int : 368 ms P-R-T Axes : 039 -35 040 degrees QTc Int : 445 ms Normal sinus rhythm Left axis deviation Septal infarct , age undetermined Abnormal ECG Confirmed by ANGIE HADLEY, ELAINA ([id number]), editor farm journal MEGHAN RICHARDSON ([id number]) on 10/15/2020 12:33:13 P M Referred By: Todd Moe Confirmed By:FILOMENA ADASM MD
--- NOTE | 2020-10-12 01:16 | PCM.HP.STD ---
Problem List (1) Strangulated ventral hernia Status: Acute History of Present Illness Date of Admission: 10/12/20 The patient is a 75 year old F presents to the hospital with abdominal pain. Patient reports she has had a ventral hernia for over a year. She says she is having abdominal pain around the area. No nausea or vomiting and no fevers or chills. Past Medical History Past Medical History (Chronic Problems): Chronic Problems (Last Reviewed 10/29/17 @ 09:58 by Earlene Reddy) Hypertension (Chronic) Medical History: Medical History (Last Reviewed 10/29/17 @ 09:58 by Earlene Reddy) Diarrhea (Acute) R19.7 Vitamin D deficiency (Acute) E55.9 Hyperlipemia (Acute) E78.5 Carpal tunnel syndrome, bilateral (Acute) G56.03 Mitral stenosis with insufficiency (Acute) I05.2 Hypertension (Chronic) I10 Mitral valve insufficiency (Acute) I34.0 Bilateral carotid artery stenosis (Acute) I65.23 Asthma (Acute) J45.909 Fatty liver (Acute) K76.0 Sciatica (Acute) M54.30 Osteopenia (Acute) M85.80 Paresthesia (Acute) R20.2 Cholelithiasis K80.20 Chronic cholecystitis K81.1 Allergies penicillin G Allergy (Unknown, Verified 10/11/20 21:15) Unknown Home Medications: Ambulatory Orders Medication Instructions Recorded aspirin 81 mg tablet,delayed 81 mg PO DAILY 10/09/17 release calcium carbonate 200 mg calcium 200 mg PO DAILY tab 10/09/17 (500 mg) chewable tablet cholecalciferol (vitamin D3) 50 6,000 unit PO ONCE cap 10/09/17 mcg (2,000 unit) capsule rosuvastatin 5 mg tablet 5 mg PO QODAY 10/09/17 Surgical History: Surgical History (Last Updated 10/29/17 @ 09:57 by Earlene Reddy) S/P colonoscopy (Acute) Z98.890 2013 Status post partial hysterectomy (Acute) Z90.711 Status post laser ablation of incompetent vein (Acute) Z98.890 S/P nasal polypectomy (Acute) Z98.890 2007 S/P laparoscopic cholecystectomy Onset Date: ~10/23/17 Z90.49 Surgical History: cholecystectomy Lives: Spouse/ Significant Other Smoking Status: Never smoker Alcohol: None Drugs: None Review of Systems Constitutional: Denies: Anorexia, Fever Respiratory: Denies: Cough, Shortness of Breath Gastrointestinal: Reports: Abdominal Pain. Denies: Hematemesis, Hematochezia, Nausea, Vomiting Genitourinary: Reports: Incontinence. Denies: Dysuria Musculoskeletal: Denies: Joint Tenderness Skin: Denies: Jaundice Neurological: Denies: Balance problems Hematologic/ Lymphatic: Denies: Anemia VTE Information - Inpt Only VTE Present on Admission: No VTE Mechan Device Prophylaxis: SCD's - Physical Exam Vitals/I&O's: Vital Signs Temp Pulse Resp BP Pulse Ox 97.9 F 85 16 147/62 H 96 10/12/20 01:01 10/12/20 01:01 10/12/20 01:01 10/12/20 01:01 10/12/20 01:01 Oxygen Delivery Method Room Air Weight: 200 lb Body Mass Index (BMI) 29.5 Intake and Output for Last 24 Hours 10/10/20 10/11/20 10/12/20 23:59 23:59 23:59 Intake Total 1000 / 1000 Balance 1000 / 1000 General: Alert, Oriented x3 Neck: No JVD Lungs: Normal air movement Cardiovascular: Regular rate, Regular Rhythm Abdomen: Soft, Hernia - Incarcerated ventral hernia with tenderness and warmth Extremities: No cyanosis Musculoskeletal: No Muscle Wasting Neurological: Cranial nerves II-XII grossly intact Psych/Mental Status: Normal Affect Microbiology Past 72 Hours 10/12/20 00:40 Mucosa - Nose SARS-CoV-2 Antigen (Rapid) - Final Laboratory Results 10/11/20 21:30: WBC 20.6 H, RBC 5.21, Hgb 15.7 H, Hct 47.5 H, MCV 91.2, MCH 30.1, MCHC 33.1, RDW Std Deviation 47.8 H, RDW Coeff of Jaciel 14.2, Plt Count 333, MPV 9.3, Immature Gran % (Auto) 0.400, Neut % (Auto) 82.5 H, Lymph % (Auto) 9.9 L, [place] % (Auto) 6.4, Eos % (Auto) 0.5, Baso % (Auto) 0.3, Absolute Neuts (auto) 17.0 H, Absolute Lymphs (auto) 2.05, Nucleated RBC % 0 10/11/20 21:30: Sodium 137, Potassium 3.8, Chloride 104, Carbon Dioxide 26.0, Anion Gap 7, BUN 14, Creatinine 0.73, Estim Creat Clear Calc 49.24, Est GFR (MDRD) Af Amer 100, Est GFR (MDRD) Non-Af 82, BUN/Creatinine Ratio 19.2, Glucose 123 H, Calcium 9.3, Total Bilirubin 1.20 H, AST 26, ALT 41, Alkaline Phosphatase 70, Total Protein 7.8, Albumin 4.2, Globulin 3.6, Albumin/Globulin Ratio 1.2 10/11/20 22:05: Lactic Acid 2.2 H* Clinical Impression(s) from Imaging Studies Abdomen/Pelvis CT 10/11/20 21:42 IMPRESSION: 1. Incarcerated ventral hernia with the findings suggesting early small bowel obstruction. 2. Hepatomegaly and hepatic steatosis. Electronically Signed: Archana Johnson MD at 0:27 EST , Service support , Current Medications Clindamycin Phosphate 900 mg/ (Dextrose) 106 mls @ 150 mls/hr IV PREOP ONE Stop: 10/12/20 01:30 Last Admin: 10/12/20 00:59 Dose: 150 mls/hr Documented by: Assessment/Plan All Active Problems (Last Reviewed 10/29/17 @ 09:58 by Earlene Reddy) Strangulated ventral hernia (Acute) Calculus of gallbladder with chronic cholecystitis without obstruction (Acute) S/P colonoscopy (Acute) Status post partial hysterectomy (Acute) Status post laser ablation of incompetent vein (Acute) S/P nasal polypectomy (Acute) Diarrhea (Acute) Vitamin D deficiency (Acute) Hyperlipemia (Acute) Carpal tunnel syndrome, bilateral (Acute) Mitral stenosis with insufficiency (Acute) Mitral valve insufficiency (Acute) Bilateral carotid artery stenosis (Acute) Asthma (Acute) Fatty liver (Acute) Sciatica (Acute) Osteopenia (Acute) Paresthesia (Acute) 75-year-old female with incarcerated and likely strangulated ventral hernia 1. The patient has a ventral hernia at her laparoscopic cholecystectomy incision site at the umbilicus. The patient had a CT scan which shows some stranding of the mesentery as well as fluid around the small bowel loop incarcerated in the hernia. The patient has a white count of 20 as well as lactate of 2.2. There are signs of early strangulation of this small bowel segment in the hernia. I discussed this with her in detail. 2. I recommend taking the patient for emergent laparotomy with possible small bowel resection. I discussed this with her in detail. I discussed the risks including but not limited to bleeding, infection, injury to underlying bowel. I discussed the need for possible small bowel resection with anastomosis and I discussed repairing the hernia with sutures due to the inflammation and not being able to place mesh. The patient understands all the risks and is we will proceed with surgery. Patient will be given clindamycin preoperatively and a Covid test was negative. Todd Moe MD Pager: [facility] [address] [place] [address] [address] [place] [address] Office:
[2020-10-12] MEDS: Morphine 4 MG/ML Syringe IV (01:34)
--- NOTE | 2020-10-12 01:48 | ED.RN ---
report given to Mena in OR
[2020-10-12 02:16] LABS: Reflex Lactate? Y
[2020-10-12] MEDS: Lactated Ringers 1,000 ML 100 ML IV ×4 (02:16→15:17)
[2020-10-12] MEDS: Bupiv/Epi 0.25% 30 ML Vial (02:21)
--- NOTE | 2020-10-12 03:37 | OP.PCM_ITS ---
Problem List (1) Strangulated ventral hernia Status: Acute Report of Operation Date of Procedure: 10/12/20 Pre-Operative Diagnosis: Ventral hernia with strangulated small bowel Post-Operative Diagnosis: Same Surgery/Procedure Performed:: Exploratory laparotomy with resection of small bowel and primary anastomosis with repair of ventral hernia Specimen's removed: Small bowel section Description of Procedure: Patient was brought back to the operating room and general anesthesia was induced. The abdomen was prepped and draped in usual sterile fashion. A midli ne incision was made to the right of the umbilicus and deepened to the hernia sac. The hernia sac was grasped and opened. The patient had 2 other hernias one at the umbilicus and one superior to the umbilicus. These were all connected using electrocautery and the bowel was inspected. The bowel appeared to be inflamed and ischemic. It was not necrotic. It was decided to resect this segment of small bowel. The proximal distal small bowel clamped with rubber-shod's and the segment of small bowel that was affected was removed using 2 loads of a JARED stapler. A LigaSure impact were used to take down the mesentery. The vessel that the bowel was twisted around was isolated and clamped and suture ligated using 0 silk suture. There was good hemostasis. As this area where the artery was seem to undercut the proximal bowel a longer segment of proximal small bowel was removed. There appeared to be good blood supply to both stapled ends and a [id number] functional end-to-end anastomosis was created using a 75 JARED stapler and a TX 60 stapler. There was good blood supply to the staple line and several 3-0 silk sutures were used to maintain hemostasis as well as a crotch suture. A 3-0 Vicryl suture was used to close the mesenteric defect. The bowel was inspected once more and appeared viable with no twisting or ischemia and it was reduced into the abdomen. The hernia sac was resected and the fascia was reapproximated using a running 0 PDS suture starting on both ends with interrupted [id number] [address] way. The subcutaneous tissue was irrigated and suctioned dry and electrocautery was used to maintain hemostasis. Local anesthetic was injected into the skin and the skin incision was closed with interrupted 4-0 Monocryl suture as well as Steri-Strips and a bandage. Patient was then awoken and taken to PACU in stable condition. - Admit VTE Documentation VTE Mechan Device Prophylaxis: SCD's
[2020-10-12 05:13] LABS: Absolute Lymphocyte Count 2.02 X10^3/uL (0.83-4.51); Absolute Neutrophil Count 14.5 X10^3/uL (2.0-7.7); Basophil# 0.04 X10^3/uL; Basophil% 0.2 % (0-1); Eosinophil# 0.03 X10^3/uL; Eosinophils% 0.2 % (0-5); Hematocrit 44.1 % (37-47); Hemoglobin 14.1 g/dL (12.0-15.0); Lymphocyte # 2.02 X10^3/ul (4.0); Lymphocyte % 11.5 % (19-41); Mean Corpuscular Hgb 29.7 pg (27.0-32.0); Mean Corpuscular Volume 92.8 fL (81-99); Mean Platelet Vol. 8.8 fl (6.2-12.0); Monocyte# 0.99 X10^3/uL; Monocyte% 5.6 % (0-10); NRBC Flagged by Analyzer 0 % (0-5); Neutrophil # 14.46 X10^3/uL (2.7-7.7); Neutrophil % 82.1 % (47-70); Platelet Count 285 K/mm3 (150-450); RBC Distribution Width CV 14.4 % (11.6-14.6); RBC Distribution Width SD 49.1 fl (35.1-43.9); Red Blood Count 4.75 M/mm3 (4.2-5.4); White Blood Count 17.6 K/mm3 (4.4-11.0)
[2020-10-12 05:27] LABS: Anion Gap 7 (5-15); BUN 13 mg/dL (7-18); Calcium,Total 8.6 mg/dL (8.5-10.1); Chloride 106 mmol/L (98-107); Creatinine, Serum 0.68 mg/dL (0.55-1.02); EST Glomerular Filtration Rate 89 mL/min (>60); Est Glom Filt Rate - Afr Amer 107 mL/min (>60); Estimated Creatinine Clearance 49.24 ml/min; Glucose 153 mg/dL (74-106); Potassium 3.8 mmol/L (3.5-5.1); Sodium Level 138 mmol/L (136-145)
[2020-10-12 05:39] LABS: Lactic Acid 3.1 mmol/L (0.4-1.9)
--- NOTE | 2020-10-12 07:32 | CPS ---
PATIENT WAS 96% ON 2 LPM. PATIENT WEANED TO ROOM AIR.
[2020-10-12 09:21] LABS: Lactic Acid 2.5 mmol/L (0.4-1.9)
--- NOTE | 2020-10-12 09:55 | CASEMGMT ---
[facility] assessment: Face to Face with patient for initial transition planning/care coordination assessment. RN VICKEY introduced self and role at [facility], pt voices understanding and consents to assessment at this time. Pt is lying in bed in no distress at this time. Pt is A/Ox4 at this time and answers all questions appropriately at this time. Care providers, pharmacy, and demographics verified at this time. Presentation: Hx hernia, increased abd pain, diarrhea Admitting dx: Small bowel obstruction, ventral hernia PCP: Rusty Specialists: Payal, surgeon; Amador uro; norberto Payne at [facility] Preferred [facility]acy: [facility] Insurance: [employer] Prescription Benefit: [employer] Living Will/HPOA: Pt states has LW/HPOA and is aware that they are no on file at [facility] at this time. Pt states her daughter, Aurora Cortes, is HPOA. LNOK: Aurora Cortes, daughter/HPOA; Melecio Cortes, grandson Living Arrangements: Pt states lives alone in 2 story home and states no concerns at home at this time. Pt states is independent with ADL's. Pt states her has been in W since May 2020. Transportation: Pt states drives self and states no transportation concerns at this time. DME/HHC: Pt states has a shower chair and grab bars at home and states no need for any further DME at this time. Pt states no hx of HHC or SNF in the past. Pt states no concerns with going home at time of discharge. Pt states is retired. Pt states does not smoke cigarettes or drink ETOH. Pt states no further concerns/needs at this time. CM to follow for any further discharge planning/needs. Advised pt to ask for CM if any further questions/concerns/needs arise, voices understanding. Pt Goal: Home Plan[place] [facility]
[2020-10-12] MEDS: Lactated Ringers 500 ML 999 ML IV (10:37)
[2020-10-12 12:41] LABS: Reflex Lactate? Y
--- NOTE | 2020-10-12 13:12 | DS.PCM_ITS ---
Discharge Date and Diagnosis - Problem List Patient Problems: Active and Suspected Problems (Last Reviewed 10/29/17 @ 09:58 by Earlene Reddy) Strangulated ventral hernia (Acute) Date of Admission: 10/12/20 Date of Discharge: 10/17/20 - Primary Discharge Diagnosis Acute Problems: Active Problems (Last Reviewed 10/29/17 @ 09:58 by Earlene Reddy) Strangulated ventral hernia (Acute) - Secondary Discharge Diagnosis Chronic Problems: Chronic Problems (Last Reviewed 10/29/17 @ 09:58 by Earlene Reddy) Hypertension (Chronic) Hospital Course and Treatment Imaging Results: Clinical Impression(s) from Imaging Studies Abdomen/Pelvis CT 10/11/20 21:42 IMPRESSION: 1. Incarcerated ventral hernia with the findings suggesting early small bowel obstruction. 2. Hepatomegaly and hepatic steatosis. Electronically Signed: Archana Johnson MD at 0:27 EST , Service support , Chest X-Ray 10/14/20 10:25 IMPRESSION: 1. No acute cardiopulmonary pathology. 2. Right metallic shoulder arthroplasty is the only new finding when compared to 09/24/2017. Electronically Signed: Osiel Feliz MD at 14:48 EST , Service support , Hospitalist group Operations: - - Ventral hernia repair with small bowel resection Summary of Care Provided: The patient is a 75 year old F presented to the emergency room with abdominal pain was found to have an incarcerated ventral hernia. She was immediately taken to surgery and the ventral hernia was repaired and a small segment of small bowel was resected. In the following days the patient did go into A. fib RVR. She was started on anticoagulation. The patient did have some mild drainage from her wound but on the day of discharge it was serious and she was discharged home on oral antibiotics and instructed to follow-up with me in 1 week and to follow-up with cardiology. She was sent home on oral anticoagulation initiated by the hospital group. Patient Problems: Active and Suspected Problems (Last Reviewed 10/29/17 @ 09:58 by Earlene Reddy) Strangulated ventral hernia (Acute) - Physical Exam Vitals/I&O's: Vital Signs Temp Pulse Resp BP Pulse Ox 98.9 F 103 H 18 162/83 H 93 10/12/20 08:40 10/12/20 08:40 10/12/20 08:40 10/12/20 08:40 10/12/20 11:04 Oxygen Flow Rate (L/min) 1 Oxygen Delivery Method Nasal Cannula Weight: 218 lb 4.122 oz Body Mass Index (BMI) 32.2 Intake and Output for Last 24 Hours 10/10/20 10/11/20 10/12/20 23:59 23:59 23:59 Intake Total 1000 / 1000 2506 / 2506 Balance 1000 / 1000 2506 / 2506 Microbiology Past 72 Hours 10/12/20 00:40 Mucosa - Nose SARS-CoV-2 Antigen (Rapid) - Final Laboratory Results 10/11/20 21:30: WBC 20.6 H, RBC 5.21, Hgb 15.7 H, Hct 47.5 H, MCV 91.2, MCH 30.1, MCHC 33.1, RDW Std Deviation 47.8 H, RDW Coeff of Jaciel 14.2, Plt Count 333, MPV 9.3, Immature Gran % (Auto) 0.400, Neut % (Auto) 82.5 H, Lymph % (Auto) 9.9 L, [place] % (Auto) 6.4, Eos % (Auto) 0.5, Baso % (Auto) 0.3, Absolute Neuts (auto) 17.0 H, Absolute Lymphs (auto) 2.05, Nucleated RBC % 0 10/11/20 21:30: Sodium 137, Potassium 3.8, Chloride 104, Carbon Dioxide 26.0, Anion Gap 7, BUN 14, Creatinine 0.73, Estim Creat Clear Calc 49.24, Est GFR (MDRD) Af Amer 100, Est GFR (MDRD) Non-Af 82, BUN/Creatinine Ratio 19.2, Glucose 123 H, Calcium 9.3, Total Bilirubin 1.20 H, AST 26, ALT 41, Alkaline Phosphatase 70, Total Protein 7.8, Albumin 4.2, Globulin 3.6, Albumin/Globulin Ratio 1.2 10/11/20 22:05: Lactic Acid 2.2 H* 10/12/20 05:04: Lactic Acid 3.1 H* 10/12/20 05:04: WBC 17.6 H, RBC 4.75, Hgb 14.1, Hct 44.1, MCV 92.8, MCH 29.7, MCHC 32.0, RDW Std Deviation 49.1 H, RDW Coeff of Jaciel 14.4, Plt Count 285, MPV 8.8, Immature Gran % (Auto) 0.400, Neut % (Auto) 82.1 H, Lymph % (Auto) 11.5 L, [place] % (Auto) 5.6, Eos % (Auto) 0.2, Baso % (Auto) 0.2, Absolute Neuts (auto) 14.5 H, Absolute Lymphs (auto) 2.02, Nucleated RBC % 0 10/12/20 05:04: Sodium 138, Potassium 3.8, Chloride 106, Carbon Dioxide 25.0, Anion Gap 7, BUN 13, Creatinine 0.68, Estim Creat Clear Calc 49.24, Est GFR (MDRD) Af Amer 107, Est GFR (MDRD) Non-Af 89, BUN/Creatinine Ratio 19.0, Glucose 153 H, Calcium 8.6 10/12/20 08:35: Lactic Acid 2.5 H* 10/12/20 13:00: Lactic Acid Pending Current Medications Acetaminophen (Acetaminophen 325 Mg Tablet) 650 mg PO Q4H PRN PRN PRN Reason: P/F Atorvastatin Calcium (Atorvastatin Calcium 10 Mg Tablet) 10 mg PO QODAY@2200 [facility] Lactated Ringer's () 1,000 mls @ 100 mls/hr IV .Q10H [facility] Last Admin: 10/12/20 05:28 Dose: Not Given Documented by: Morphine Sulfate (Morphine 2 Mg/Ml Syringe) 2 - 4 mg IV Q2H PRN PRN PRN Reason: Pain Score 4-10 Ondansetron HCl (Ondansetron 4 Mg/2 Ml Vial) 4 mg IV Q6H PRN PRN PRN Reason: NAUSEA Oxycodone HCl (Oxycodone 5 Mg Tablet) 5 - 10 mg PO Q4H PRN PRN PRN Reason: Pain Score 4-10 Sodium Chloride (0.9% Saline Lock 10 Ml Syringe) 10 - 40 ml IV UD PRN PRN Reason: SALINE FLUSH Home Medications: Medications to take at Discharge calcium carbonate 200 mg calcium (500 mg) chewable tablet 200 mg PO DAILY tab 10/09/17 cholecalciferol (vitamin D3) 50 mcg (2,000 unit) capsule 6,000 unit PO ONCE cap 10/09/17 rosuvastatin 5 mg tablet 5 mg PO QODAY 10/09/17 Oxycodone [Oxyir] 5 - 10 mg PO Q4H PRN PRN 5 Days #30 tab 10/12/20 Apixaban [Eliquis] 5 mg PO BID #60 tab 10/16/20 Diltiazem CD [Cardizem CD] 120 mg PO Q12 #60 cap 10/16/20 Metoprolol Tartrate [Lopressor (beta moise)] 50 mg PO BID #60 tab 10/16/20 Pantoprazole Sodium [Protonix] 20 mg PO DAILY #30 tab 10/16/20 Clindamycin [Cleocin] 300 mg PO TID 5 Days #15 cap 10/17/20 Following Prescriptions Were Given to Patient: Diltiazem CD [Cardizem CD] 120 mg PO Q12 #60 cap Transmission Status: Received by [facility] Clindamycin [Cleocin] 300 mg PO TID 5 Days #15 cap Transmission Status: Pending to [facility] Apixaban [Eliquis] 5 mg PO BID #60 tab Transmission Status: Received by [facility] Metoprolol Tartrate [Lopressor (beta moise)] 50 mg PO BID #60 tab Transmission Status: Received by [facility] Oxycodone [Oxyir] 5 - 10 mg PO Q4H PRN PRN 5 Days #30 tab PRN Reason: Pain Score 4-10 Transmission Status: Received by [facility] Pantoprazole Sodium [Protonix] 20 mg PO DAILY #30 tab Transmission Status: Received by [facility] Primary Care Physician: Gini Ojeda DO [Primary Care Provider] - Medical Necessity - Tobacco Use Smoking Status: Never smoker Tobacco Use: Non-smoker Meaningful Use Info Meaningful Use Diagnoses (Choose all that apply): None applicable
--- NOTE | 2020-10-12 13:13 | PCM.DC.GS ---
Discharge Diet: Light diet - advance as tolerated Discharge Activity: May Not Drive - No driving for 1 week or while taking narcotic pain meds. May shower in (days): 1 Lifting Restrictions: 20 lbs for 6 weeks Call your doctor if your incision/area has: Continuous Slow Oozing, Sudden Increased Bleeding, Increased Pain/ Swelling, Increased Redness, Foul Smelling Discharge, Swelling at the incision site Call your doctor if you observe: Fever of 101 or Higher Suture Line Care: Avoid Pulling/Pushing, Avoid Pinching/Bending Change Dressing in (Days):: 1 - Leave steri-strips in place for 1 week. Allergies/Adverse Reactions: Allergies penicillin G Allergy (Unknown, Verified 10/12/20 05:06) Unknown Medications to take at Discharge aspirin 81 mg tablet,delayed release 81 mg PO DAILY 10/09/17 calcium carbonate 200 mg calcium (500 mg) chewable tablet 200 mg PO DAILY tab 10/09/17 cholecalciferol (vitamin D3) 50 mcg (2,000 unit) capsule 6,000 unit PO ONCE cap 10/09/17 rosuvastatin 5 mg tablet 5 mg PO QODAY 10/09/17 Oxycodone [Oxyir] 5 - 10 mg PO Q4H PRN PRN 5 Days #30 tablet 10/12/20 The following prescriptions were given: Oxycodone [Oxyir] 5 - 10 mg PO Q4H PRN PRN 5 Days #30 tablet PRN Reason: Pain Score 4-10 Transmission Status: Sent to [facility] Primary Care Physician: Gini Ojeda DO [Primary Care Provider] - Test Results: Test results from this visit will be discussed in further detail at your follow-up appointment, if applicable. Please Follow Up With: Todd Moe MD When: Please call to schedule 2 week follow up appointment. [phone]
[2020-10-12 13:42] LABS: Lactic Acid 2.6 mmol/L (0.4-1.9)
[2020-10-12] MEDS: oxyCODONE 5 MG Tablet PO ×2 (14:15→21:36)
[2020-10-12] MEDS: Pantoprazole Sodium 20 MG Tablet PO (15:16)
--- NOTE | 2020-10-12 16:54 | PCM.PROGNOTE ---
<Clara Ko FIELD CONSULTANT - Last Filed: 10/12/20 17:21> Patient Problems: Active and Suspected Problems (Last Reviewed 10/29/17 @ 09:58 by Earlene Reddy) Strangulated ventral hernia (Acute) Subjective: Patient seen and examined. Ambulating in hallway without difficulty. Reports pain is well controlled at this time. Not yet passing gas. Denies fever, chills. Denies urinary symptoms. Denies shortness of breath. - Physical Exam Vitals/I&O's: Vital Signs Temp Pulse Resp BP Pulse Ox 98.5 F 100 18 157/65 H 93 10/12/20 14:17 10/12/20 14:17 10/12/20 14:17 10/12/20 14:17 10/12/20 14:17 Oxygen Flow Rate (L/min) 1 Oxygen Delivery Method Room Air Weight: 218 lb 4.122 oz Body Mass Index (BMI) 32.2 Intake and Output for Last 24 Hours 10/10/20 10/11/20 10/12/20 23:59 23:59 23:59 Intake Total 1000 / 1000 3506 / 3506 Balance 1000 / 1000 3506 / 3506 General: Alert, Oriented x3, Cooperative HEENT: Atraumatic, PERRLA, EOMI, Normocephalic Neck: Supple, No JVD, Negative Carotid Bruits Lungs: Clear to auscultation, Normal air movement Cardiovascular: Regular rate, No murmurs Abdomen: Soft, Hypoactive Bowel Sounds, Tender Extremities: No clubbing, No cyanosis, No edema, Capillary Refill Less than 3 Seconds Skin: No rashes, No breakdown, - - Postop abdominal dressings intact Musculoskeletal: No Tenderness to Palpation of Joints or Extremities Neurological: Cranial nerves II-XII grossly intact, Neuro grossly intact Psych/Mental Status: Normal Affect, Appropriate Microbiology Past 72 Hours 10/12/20 00:40 Mucosa - Nose SARS-CoV-2 Antigen (Rapid) - Final Laboratory Results 10/11/20 21:30: WBC 20.6 H, RBC 5.21, Hgb 15.7 H, Hct 47.5 H, MCV 91.2, MCH 30.1, MCHC 33.1, RDW Std Deviation 47.8 H, RDW Coeff of Jaciel 14.2, Plt Count 333, MPV 9.3, Immature Gran % (Auto) 0.400, Neut % (Auto) 82.5 H, Lymph % (Auto) 9.9 L, [place] % (Auto) 6.4, Eos % (Auto) 0.5, Baso % (Auto) 0.3, Absolute Neuts (auto) 17.0 H, Absolute Lymphs (auto) 2.05, Nucleated RBC % 0 10/11/20 21:30: Sodium 137, Potassium 3.8, Chloride 104, Carbon Dioxide 26.0, Anion Gap 7, BUN 14, Creatinine 0.73, Estim Creat Clear Calc 49.24, Est GFR (MDRD) Af Amer 100, Est GFR (MDRD) Non-Af 82, BUN/Creatinine Ratio 19.2, Glucose 123 H, Calcium 9.3, Total Bilirubin 1.20 H, AST 26, ALT 41, Alkaline Phosphatase 70, Total Protein 7.8, Albumin 4.2, Globulin 3.6, Albumin/Globulin Ratio 1.2 10/11/20 22:05: Lactic Acid 2.2 H* 10/12/20 05:04: Lactic Acid 3.1 H* 10/12/20 05:04: WBC 17.6 H, RBC 4.75, Hgb 14.1, Hct 44.1, MCV 92.8, MCH 29.7, MCHC 32.0, RDW Std Deviation 49.1 H, RDW Coeff of Jaciel 14.4, Plt Count 285, MPV 8.8, Immature Gran % (Auto) 0.400, Neut % (Auto) 82.1 H, Lymph % (Auto) 11.5 L, [place] % (Auto) 5.6, Eos % (Auto) 0.2, Baso % (Auto) 0.2, Absolute Neuts (auto) 14.5 H, Absolute Lymphs (auto) 2.02, Nucleated RBC % 0 10/12/20 05:04: Sodium 138, Potassium 3.8, Chloride 106, Carbon Dioxide 25.0, Anion Gap 7, BUN 13, Creatinine 0.68, Estim Creat Clear Calc 49.24, Est GFR (MDRD) Af Amer 107, Est GFR (MDRD) Non-Af 89, BUN/Creatinine Ratio 19.0, Glucose 153 H, Calcium 8.6 10/12/20 08:35: Lactic Acid 2.5 H* 10/12/20 13:00: Lactic Acid 2.6 H* Current Medications Acetaminophen (Acetaminophen 325 Mg Tablet) 650 mg PO Q4H PRN PRN PRN Reason: P/F Atorvastatin Calcium (Atorvastatin Calcium 10 Mg Tablet) 10 mg PO QODAY@2200 [facility] Lactated Ringer's () 1,000 mls @ 100 mls/hr IV .Q10H [facility] Last Admin: 10/12/20 15:17 Dose: 100 mls/hr Documented by: Morphine Sulfate (Morphine 2 Mg/Ml Syringe) 2 - 4 mg IV Q2H PRN PRN PRN Reason: Pain Score 4-10 Ondansetron HCl (Ondansetron 4 Mg/2 Ml Vial) 4 mg IV Q6H PRN PRN PRN Reason: NAUSEA Oxycodone HCl (Oxycodone 5 Mg Tablet) 5 - 10 mg PO Q4H PRN PRN PRN Reason: Pain Score 4-10 Last Admin: 10/12/20 14:15 Dose: 5 mg Documented by: Pantoprazole Sodium (Pantoprazole Sodium 20 Mg Tablet) 20 mg PO DAILY [facility] Sodium Chloride (0.9% Saline Lock 10 Ml Syringe) 10 - 40 ml IV UD PRN PRN Reason: SALINE FLUSH Medical Necessity - Tobacco Use Smoking Status: Never smoker Tobacco Use: Non-smoker Assessment/Plan All Active Problems (Last Reviewed 10/29/17 @ 09:58 by Earlene Reddy) Strangulated ventral hernia (Acute) Calculus of gallbladder with chronic cholecystitis without obstruction (Acute) S/P colonoscopy (Acute) Status post partial hysterectomy (Acute) Status post laser ablation of incompetent vein (Acute) S/P nasal polypectomy (Acute) Diarrhea (Acute) Vitamin D deficiency (Acute) Hyperlipemia (Acute) Carpal tunnel syndrome, bilateral (Acute) Mitral stenosis with insufficiency (Acute) Mitral valve insufficiency (Acute) Bilateral carotid artery stenosis (Acute) Asthma (Acute) Fatty liver (Acute) Sciatica (Acute) Osteopenia (Acute) Paresthesia (Acute) 1. Lactic acidosis, leukocytosis-unclear etiology, possibly reactive. No fever. Patient states her white count has been elevated chronically as an outpatient. She denies urinary symptoms. No evidence of infection. IV fluids, trend labs. 2. Ventral hernia with strangulated small bowel status post resection of small bowel and primary anastomosis with repair of ventral hernia 10/12/[address] Moe- management per surgery. 3. Hyperlipidemia-continue statin. DVT prophylaxis- SCDs This patient was seen by MANGO Haddad under the supervision of Dr. Gillette. <Gian Gillette - Last Filed: 10/12/20 19:19> Subjective: Seen and examined. Patient was admitted last night for incarcerated umbilical hernia from lap brenden port. Patient came with abdominal pain and had ventral hernia for 1 year. Pain was severe, 10/10 all around the abdomen. CT abdomen showed stranding of the mesentery as well as fluid around a small bowel loop incarcerated in the hernia. Leukocytosis WBC count 20,000 and lactic 2.2. The patient was taken immediately to surgery for incarcerated hernia. She had exploratory laparotomy with resection of a small bowel and primary anastomosis and repair of ventral hernia. Discussed with Dr. Moe and he said small bowel loop was reddish, inflamed and ischemic therefore was resected. Patient has not moved flatus yet. She states her abdominal pain is much better and improved. She is comfortable. She has history of childhood asthma which got improved after the age of 38. Denies any shortness of breath, wheezing or recent asthma exacerbation Objective: Physical exam General: Alert, Oriented x3, Cooperative HEENT: Atraumatic, PERRLA, EOMI, Normocephalic Oral: No Gingival or Mucosal Lesions/ Ulcerations Neck: Supple, No JVD, Negative Carotid Bruits Lungs: Air entry diminished in bilateral lung bases. No crepitation/rhonchi/wheezing. Pulse ox 93% on room air. No tachypnea. Cardiovascular: Regular rate, Regular Rhythm, Normal S1, Normal S2, No murmurs Abdomen: Bowel sounds absent. Soft. Mild tenderness on the right lower quadrant. Surgical dressing mild staining with blood. No distention. : No renal angle tenderness. No suprapubic tenderness. Extremities: No edema, Capillary Refill Less than 3 Seconds Skin: No rashes, No breakdown Musculoskeletal: No Tenderness to Palpation of Joints or Extremities Neurological: Cranial nerves II-XII grossly intact, Deep Tendon Reflexes 2+/4 and Symmetrical, Neuro grossly intact Psych/Mental Status: Normal Affect, Appropriate. - Physical Exam Vitals/I&O's: Vital Signs Temp Pulse Resp BP Pulse Ox 98.5 F 100 18 157/65 H 93 10/12/20 14:17 10/12/20 14:17 10/12/20 14:17 10/12/20 14:17 10/12/20 14:17 Oxygen Flow Rate (L/min) 1 Oxygen Delivery Method Nasal Cannula Weight: 218 lb 4.122 oz Body Mass Index (BMI) 32.2 Intake and Output for Last 24 Hours 10/10/20 10/11/20 10/12/20 23:59 23:59 23:59 Intake Total 1000 / 1000 3506 / 3506 Balance 1000 / 1000 3506 / 3506 Microbiology Past 72 Hours 10/12/20 00:40 Mucosa - Nose SARS-CoV-2 Antigen (Rapid) - Final Laboratory Results 10/11/20 21:30: WBC 20.6 H, RBC 5.21, Hgb 15.7 H, Hct 47.5 H, MCV 91.2, MCH 30.1, MCHC 33.1, RDW Std Deviation 47.8 H, RDW Coeff of Jaciel 14.2, Plt Count 333, MPV 9.3, Immature Gran % (Auto) 0.400, Neut % (Auto) 82.5 H, Lymph % (Auto) 9.9 L, [place] % (Auto) 6.4, Eos % (Auto) 0.5, Baso % (Auto) 0.3, Absolute Neuts (auto) 17.0 H, Absolute Lymphs (auto) 2.05, Nucleated RBC % 0 10/11/20 21:30: Sodium 137, Potassium 3.8, Chloride 104, Carbon Dioxide 26.0, Anion Gap 7, BUN 14, Creatinine 0.73, Estim Creat Clear Calc 49.24, Est GFR (MDRD) Af Amer 100, Est GFR (MDRD) Non-Af 82, BUN/Creatinine Ratio 19.2, Glucose 123 H, Calcium 9.3, Total Bilirubin 1.20 H, AST 26, ALT 41, Alkaline Phosphatase 70, Total Protein 7.8, Albumin 4.2, Globulin 3.6, Albumin/Globulin Ratio 1.2 10/11/20 22:05: Lactic Acid 2.2 H* 10/12/20 05:04: Lactic Acid 3.1 H* 10/12/20 05:04: WBC 17.6 H, RBC 4.75, Hgb 14.1, Hct 44.1, MCV 92.8, MCH 29.7, MCHC 32.0, RDW Std Deviation 49.1 H, RDW Coeff of Jaciel 14.4, Plt Count 285, MPV 8.8, Immature Gran % (Auto) 0.400, Neut % (Auto) 82.1 H, Lymph % (Auto) 11.5 L, [place] % (Auto) 5.6, Eos % (Auto) 0.2, Baso % (Auto) 0.2, Absolute Neuts (auto) 14.5 H, Absolute Lymphs (auto) 2.02, Nucleated RBC % 0 10/12/20 05:04: Sodium 138, Potassium 3.8, Chloride 106, Carbon Dioxide 25.0, Anion Gap 7, BUN 13, Creatinine 0.68, Estim Creat Clear Calc 49.24, Est GFR (MDRD) Af Amer 107, Est GFR (MDRD) Non-Af 89, BUN/Creatinine Ratio 19.0, Glucose 153 H, Calcium 8.6 10/12/20 08:35: Lactic Acid 2.5 H* 10/12/20 13:00: Lactic Acid 2.6 H* Current Medications Acetaminophen (Acetaminophen 325 Mg Tablet) 650 mg PO Q4H PRN PRN PRN Reason: P/F Atorvastatin Calcium (Atorvastatin Calcium 10 Mg Tablet) 10 mg PO QODAY@2200 [facility] Lactated Ringer's () 1,000 mls @ 100 mls/hr IV .Q10H [facility] Last Admin: 10/12/20 15:17 Dose: 100 mls/hr Documented by: Morphine Sulfate (Morphine 2 Mg/Ml Syringe) 2 - 4 mg IV Q2H PRN PRN PRN Reason: Pain Score 4-10 Ondansetron HCl (Ondansetron 4 Mg/2 Ml Vial) 4 mg IV Q6H PRN PRN PRN Reason: NAUSEA Oxycodone HCl (Oxycodone 5 Mg Tablet) 5 - 10 mg PO Q4H PRN PRN PRN Reason: Pain Score 4-10 Last Admin: 10/12/20 14:15 Dose: 5 mg Documented by: Pantoprazole Sodium (Pantoprazole Sodium 20 Mg Tablet) 20 mg PO DAILY [facility] Sodium Chloride (0.9% Saline Lock 10 Ml Syringe) 10 - 40 ml IV UD PRN PRN Reason: SALINE FLUSH Assessment/Plan This patient was seen in conjunction with Clara KELLY. I have independently interviewed and examined the patient and reviewed pertinent history, examination findings, laboratory and plan of management. I have reviewed the note and agree with the documented findings with the few additional points. In brief, patient is 75-year-old female admitted with incarcerated and inflamed ventral hernia. Small bowel loop was found ischemic and was resected with end-to-end anastomosis. Patient had not passed flatus or BM. Bowel sound absent. The patient has lactic acidosis which was 2.2, 3.1 2.5, and 2.6. Patient leukocytosis is improving. Lactic acid elevated from ischemic bowel but seems stable. Patient did not had fever. Temperature was 99.8 at 3:30 AM today. Monitor CBC, BMP and lactic acid tomorrow a.m. Patient had preop antibiotic, clindamycin. If patient spikes fever, tachycardia, tachypnea or hypoxia or worsening leukocytosis will need antibiotic. For now continue IV fluid Ringer lactate and monitor clinically. Asthma stable: DuoNeb as needed for shortness of breath. VTE prophylaxis: Bilateral SCDs. Consider Lovenox 40 mg subcu daily once surgical bleeding risk is acceptable. I have discussed my assessment with Clara KELLY and orders have been reviewed. Clinical Impression(s) from Imaging Studies Abdomen/Pelvis CT 10/11/20 21:42 IMPRESSION: 1. Incarcerated ventral hernia with the findings suggesting early small bowel obstruction. 2. Hepatomegaly and hepatic steatosis. Electronically Signed: Archana Johnson MD at 0:27 EST , Service support , Inpatient E&M: [id number] Init Hosp L2
--- NOTE | 2020-10-12 19:37 | PCS.PANDOC ---
PANDEMIC DOCUMENTATION INITIATED: Date: 10/12/20 Time: 04:50
[2020-10-12] MEDS: Atorvastatin Calcium 10 MG Tablet PO (21:36)
--- NOTE | 2020-10-12 22:27 | EKG12_ITS ---
Test Reason : RYTHMN CHANGE Blood Pressure : / mmHG Vent. Rate : 139 BPM Atrial Rate : 300 BPM P-R Int : 000 ms QRS Dur : 066 ms QT Int : 260 ms P-R-T Axes : 053 -18 068 degrees QTc Int : 395 ms Atrial flutter with variable A-V block with premature ventricular or aberrantly conducted complexes Septal infarct , age undetermined Abnormal ECG When compared with ECG of 13-OCT-2020 02:23, MANUAL COMPARISON REQUIRED, DATA IS UNCONFIRMED Confirmed by JEANETTE HADLEY, DEE DEE ([id number]), assistant editor MEGHAN RICHARDSON ([id number]) on 10/16/2020 10:59:12 AM Referred By: Todd Moe Confirmed By:DEE DEE REID MD
[2020-10-12] MEDS: dilTIAZem 25 MG/5 ML Vial IV BOLUS (23:04)
[2020-10-13] VITALS (20 sets, daily range): BP systolic 112–145; BP diastolic 45–71; PULSE 80–151; RESP 16–20; TEMP 36.6–38.7; O2SAT 92–97
[2020-10-13] MEDS: Lactated Ringers 1,000 ML 100 ML IV ×2 (01:07→11:13)
[2020-10-13] MEDS: Enoxaparin 100 MG/ML Syringe SC ×2 (01:08→17:09)
--- NOTE | 2020-10-13 02:16 | EKG12_ITS ---
Test Reason : CONVERTED NSR Blood Pressure : / mmHG Vent. Rate : 089 BPM Atrial Rate : 089 BPM P-R Int : 140 ms QRS Dur : 088 ms QT Int : 364 ms P-R-T Axes : 039 -23 037 degrees QTc Int : 442 ms Normal sinus rhythm Septal infarct , age undetermined Abnormal ECG When compared with ECG of 12-OCT-2020 22:41, MANUAL COMPARISON REQUIRED, DATA IS UNCONFIRMED Confirmed by JEANETTE HADLEY, DEE DEE ([id number]), newspaper managing editor MEGHAN RICHARDSON ([id number]) on 10/16/2020 11:01:08 AM Referred By: Todd Moe Confirmed By:DEE DEE REID MD
[2020-10-13] MEDS: Metoprolol Tartrate 25 MG Tablet PO ×3 (02:51→21:53)
[2020-10-13] MEDS: 0.9% Saline Lock 10 ML Syringe IV ×2 (02:57→22:09)
[2020-10-13] MEDS: oxyCODONE 5 MG Tablet PO ×2 (03:23→13:41)
[2020-10-13 06:34] LABS: Absolute Lymphocyte Count 2.71 X10^3/uL (0.83-4.51); Basophil# 0.04 X10^3/uL; Basophil% 0.2 % (0-1); Eosinophil# 0.09 X10^3/uL; Eosinophils% 0.5 % (0-5); Hematocrit 38.4 % (37-47); Hemoglobin 12.1 g/dL (12.0-15.0); Lymphocyte # 2.71 X10^3/ul (4.0); Lymphocyte % 15.3 % (19-41); Mean Corp Hgb Conc 31.5 g/dL (32-36); Mean Corpuscular Hgb 29.4 pg (27.0-32.0); Mean Corpuscular Volume 93.4 fL (81-99); Mean Platelet Vol. 8.9 fl (6.2-12.0); Monocyte# 1.93 X10^3/uL; Monocyte% 10.9 % (0-10); NRBC Flagged by Analyzer 0 % (0-5); Neutrophil # 12.95 X10^3/uL (2.7-7.7); Neutrophil % 72.9 % (47-70); POSITIVE DIFFERENTIAL YES; Platelet Count 251 K/mm3 (150-450); RBC Distribution Width CV 14.6 % (11.6-14.6); RBC Distribution Width SD 50.3 fl (35.1-43.9); Red Blood Count 4.11 M/mm3 (4.2-5.4); White Blood Count 17.8 K/mm3 (4.4-11.0)
[2020-10-13 06:45] LABS: Differential Indicated SCAN CRITERIA MET
[2020-10-13 06:53] LABS: Anion Gap 5 (5-15); BUN 12 mg/dL (7-18); BUN/Creat Ratio 26.1 RATIO (10-20); Calcium,Total 8.2 mg/dL (8.5-10.1); Chloride 102 mmol/L (98-107); Creatinine, Serum 0.46 mg/dL (0.55-1.02); EST Glomerular Filtration Rate 140 mL/min (>60); Est Glom Filt Rate - Afr Amer 169 mL/min (>60); Estimated Creatinine Clearance 49.24 ml/min; Glucose 121 mg/dL (74-106); Potassium 3.2 mmol/L (3.5-5.1); Sodium Level 136 mmol/L (136-145)
[2020-10-13 06:57] LABS: Lactic Acid 0.9 mmol/L (0.4-1.9)
[2020-10-13 07:27] LABS: Differential Comment SCANNED
--- NOTE | 2020-10-13 08:41 | ECHOCS_ITS ---
Reason For Study: Afib/Flutter Procedure This was a 2D Doppler, Color Flow transthoracic echocardiogram. Technically difficult study, patient scanned sitting up due to discomfort from recent abdominal surgery (10/12/2020). Contrast injection performed. Exam performed portable in patient room. Left Ventricle Normal LV size. The estimated ejection fraction is 55 %. No evidence for diastolic dysfunction. No regional wall motion abnormalities noted. Right Ventricle Normal RV size. Normal systolic function. Atria Normal left atrium. Normal right atrium. No doppler evidence for ASD. Mitral Valve There is no mitral valve stenosis. No mitral valve insufficiency. Tricuspid Valve There is no tricuspid stenosis. Unable to estimate RV systolic pressure due to inadequate jet, pulmonary artery pressure probably normal. Aortic Valve The aortic valve is not well visualized. There is no aortic stenosis. No aortic valve insufficiency. Pulmonic Valve There is no pulmonic valvular stenosis. No pulmonic valve insufficiency. Great Vessels Normal aortic root. Pericardium/Pleural No pericardial effusion. Medication Diluted definity 3ml given slow IV push to enhance endocardial definition. MMode/2D Measurements & Calculations LVIDd: 4.4 cm IVSd: 1.1 cm LA dimension: 3.9 cm LVIDs: 2.9 cm LVPWd: 0.85 cm FS: 35.3 % LAV(MOD-bp): 49.6 ml LA A4 area: 17.1 cm2 RA A4 area: 17.2 cm2 LAV(MOD-bp) Indexed: 23.2 ml/m2 LAV(MOD-sp2): 54.9 ml LAV(MOD-sp4): 42.1 ml Time Measurements MV dec time: 0.26 sec Doppler Measurements & Calculations MV E max cole: 98.5 cm/sec Lat Peak E' Cole: 9.4 cm/sec Med Peak E' Cole: 8.0 cm/sec MV A max cole: 89.8 cm/sec E/E' lat: 10.5 E/E' med: 12.3 MV E/A: 1.1 MV V2 max: 122.3 cm/sec MV P1/2t max cole: 123.3 cm/sec Ao V2 max: 147.7 cm/sec MV max P.0 mmHg MV P1/2t: 96.1 msec Ao max P.7 mmHg MV V2 mean: 68.9 cm/sec MV dec slope: 375.8 cm/sec2 MV mean P.2 mmHg MV V2 VTI: 35.6 cm MVA(P1/2t): 2.3 cm2 LV V1 max: 114.8 cm/sec PA V2 max: 86.7 cm/sec TR max cole: 281.0 cm/sec LV V1 max P.3 mmHg TR max P.6 mmHg Interpretation Summary The estimated ejection fraction is 55 %. No evidence for diastolic dysfunction. Ordering Physician: Clara Ko Referring Physician: Todd Moe Performed By: Damion Montero RCS
[2020-10-13] MEDS: Pantoprazole Sodium 20 MG Tablet PO (09:10)
[2020-10-13] MEDS: Acetaminophen 325 MG Tablet 650 MG PO ×2 (09:12→21:53)
[2020-10-13] MEDS: Docusate Sodium 100 MG Capsule 200 MG PO ×2 (09:16→21:54)
--- NOTE | 2020-10-13 10:04 | PCM.PN.SRG ---
Patient Problems: Active and Suspected Problems (Last Reviewed 10/29/17 @ 09:58 by Earlene Reddy) Strangulated ventral hernia (Acute) Subjective: patient had episode of atrial fibrillation with RVR and treated by internal medicine last night This morning, she denies chest pain, she notes lower abdominal cramping pain but controlled with pain medications Not ambulating much due to body habitus, PT working on her this morning Has not passed flatus - Physical Exam Vitals/I&O's: Vital Signs Temp Pulse Resp BP Pulse Ox 98.9 F 85 16 126/45 H 97 10/13/20 08:50 10/13/20 09:10 10/13/20 08:50 10/13/20 08:50 10/13/20 08:50 Oxygen Flow Rate (L/min) 2 Oxygen Delivery Method Room Air Weight: 99 kg Body Mass Index (BMI) 32.2 Intake and Output for Last 24 Hours 10/11/20 10/12/20 10/13/20 23:59 23:59 23:59 Intake Total 1000 / 1000 3506 / 3806 1291.25 / 1291.25 Balance 1000 / 1000 3506 / 3806 1291.25 / 1291.25 General: Alert, Oriented x3, - - patient sitting in chair appears comfortable and not short of breath and no signs of abdominal pain HEENT: Atraumatic Oral: Moist Mucosa Neck: Supple Lungs: Normal air movement Abdomen: Soft - seems distended but this could be patient's body habitus dressing intact Microbiology Past 72 Hours 10/12/20 00:40 Mucosa - Nose SARS-CoV-2 Antigen (Rapid) - Final Laboratory Results 10/12/20 13:00: Lactic Acid 2.6 H* 10/13/20 06:06: WBC 17.8 H, RBC 4.11 L, Hgb 12.1, Hct 38.4, MCV 93.4, MCH 29.4, MCHC 31.5 L, RDW Std Deviation 50.3 H, RDW Coeff of Jaciel 14.6, Plt Count 251, MPV 8.9, Immature Gran % (Auto) 0.200, Neut % (Auto) 72.9 H, Lymph % (Auto) 15.3 L, Randall % (Auto) 10.9 H, Eos % (Auto) 0.5, Baso % (Auto) 0.2, Absolute Neuts (auto) 13.0 H, Absolute Lymphs (auto) 2.71, Nucleated RBC % 0, Differential Comment SCANNED, Diff Path Review December [facility] 10/13/20 06:06: Sodium 136, Potassium 3.2 L, Chloride 102, Carbon Dioxide 29.0, Anion Gap 5, BUN 12, Creatinine 0.46 L, Estim Creat Clear Calc 49.24, Est GFR (MDRD) Af Amer 169, Est GFR (MDRD) Non-Af 140, BUN/Creatinine Ratio 26.1 H, Glucose 121 H, Calcium 8.2 L 10/13/20 06:06: Lactic Acid 0.9 Current Medications Acetaminophen (Acetaminophen 325 Mg Tablet) 650 mg PO Q4H PRN PRN PRN Reason: P/F Last Admin: 10/13/20 09:12 Dose: 650 mg Documented by: Atorvastatin Calcium (Atorvastatin Calcium 10 Mg Tablet) 10 mg PO QODAY@2200 [facility] Last Admin: 10/12/20 21:36 Dose: 10 mg Documented by: Docusate Sodium (Docusate Sodium 100 Mg Capsule) 200 mg PO BID [facility] Last Admin: 10/13/20 09:16 Dose: 200 mg Documented by: Enoxaparin Sodium (Enoxaparin 100 Mg/Ml Syringe) 100 mg SC Q12@0600,1800 [facility] Last Admin: 10/13/20 02:19 Dose: Not Given Documented by: Lactated Ringer's () 1,000 mls @ 100 mls/hr IV .Q10H [facility] Last Admin: 10/13/20 01:07 Dose: 100 mls/hr Documented by: Metoprolol Tartrate (Metoprolol Tartrate 25 Mg Tablet) 25 mg PO BID [facility] Last Admin: 10/13/20 09:10 Dose: 25 mg Documented by: Morphine Sulfate (Morphine 2 Mg/Ml Syringe) 2 - 4 mg IV Q2H PRN PRN PRN Reason: Pain Score 4-10 Ondansetron HCl (Ondansetron 4 Mg/2 Ml Vial) 4 mg IV Q6H PRN PRN PRN Reason: NAUSEA Oxycodone HCl (Oxycodone 5 Mg Tablet) 5 - 10 mg PO Q4H PRN PRN PRN Reason: Pain Score 4-10 Last Admin: 10/13/20 03:23 Dose: 5 mg Documented by: Pantoprazole Sodium (Pantoprazole Sodium 20 Mg Tablet) 20 mg PO DAILY RYAN Last Admin: 10/13/20 09:10 Dose: 20 mg Documented by: Sodium Chloride (0.9% Saline Lock 10 Ml Syringe) 10 - 40 ml IV UD PRN PRN Reason: SALINE FLUSH Last Admin: 10/13/20 02:57 Dose: 20 ml Documented by: Medical Necessity - Tobacco Use Smoking Status: Never smoker Tobacco Use: Non-smoker Assessment/Plan All Active Problems (Last Reviewed 10/29/17 @ 09:58 by Earlene Reddy) Strangulated ventral hernia (Acute) Calculus of gallbladder with chronic cholecystitis without obstruction (Acute) S/P colonoscopy (Acute) Status post partial hysterectomy (Acute) Status post laser ablation of incompetent vein (Acute) S/P nasal polypectomy (Acute) Diarrhea (Acute) Vitamin D deficiency (Acute) Hyperlipemia (Acute) Carpal tunnel syndrome, bilateral (Acute) Mitral stenosis with insufficiency (Acute) Mitral valve insufficiency (Acute) Bilateral carotid artery stenosis (Acute) Asthma (Acute) Fatty liver (Acute) Sciatica (Acute) Osteopenia (Acute) Paresthesia (Acute) Impression: s/p small bowel resection for strangulated ventral hernia Plan: will advance diet to clears, encourage ambulation and incentive spirometry serum lactic acid has normalized, however patient with persistent elevated WBC - continue observation cardiac care as per internal medicine
--- NOTE | 2020-10-13 10:52 | PCM.PROGNOTE ---
<MaikelClara REINFORCED CONCRETE INSPECTOR - Last Filed: 10/13/20 10:59> Patient Problems: Active and Suspected Problems (Last Reviewed 10/29/17 @ 09:58 by Earlene Reddy) Strangulated ventral hernia (Acute) Subjective: Patient seen and examined. Had episode of atrial fibrillation with RVR overnight. This morning appears to be in sinus rhythm. Patient denies chest pain, shortness of breath, palpitations. Abdominal pain well controlled at this time. States she has not yet passing flatus. She does feel her abdomen is mildly distended. Denies other symptoms or complaints. - Physical Exam Vitals/I&O's: Vital Signs Temp Pulse Resp BP Pulse Ox 98.9 F 85 16 126/45 H 97 10/13/20 08:50 10/13/20 09:10 10/13/20 08:50 10/13/20 08:50 10/13/20 08:50 Oxygen Flow Rate (L/min) 2 Oxygen Delivery Method Room Air Weight: 218 lb 4.122 oz Body Mass Index (BMI) 32.2 Intake and Output for Last 24 Hours 10/11/20 10/12/20 10/13/20 23:59 23:59 23:59 Intake Total 1000 / 1000 3506 / 3806 1291.25 / 1291.25 Balance 1000 / 1000 3506 / 3806 1291.25 / 1291.25 General: Alert, Oriented x3, Cooperative HEENT: Atraumatic, PERRLA, EOMI, Normocephalic Neck: Supple, No JVD, Negative Carotid Bruits Lungs: Clear to auscultation, Diminished Cardiovascular: Regular rate, No murmurs Abdomen: Bowel Sounds Present, Soft, Non-Distended, Tender, - - Abdominal postop dressings intact Extremities: No clubbing, No cyanosis, No edema, Capillary Refill Less than 3 Seconds Skin: No rashes, No breakdown Musculoskeletal: No Tenderness to Palpation of Joints or Extremities Neurological: Cranial nerves II-XII grossly intact, Neuro grossly intact Psych/Mental Status: Normal Affect, Appropriate Microbiology Past 72 Hours 10/12/20 00:40 Mucosa - Nose SARS-CoV-2 Antigen (Rapid) - Final Laboratory Results 10/12/20 13:00: Lactic Acid 2.6 H* 10/13/20 06:06: WBC 17.8 H, RBC 4.11 L, Hgb 12.1, Hct 38.4, MCV 93.4, MCH 29.4, MCHC 31.5 L, RDW Std Deviation 50.3 H, RDW Coeff of Jaciel 14.6, Plt Count 251, MPV 8.9, Immature Gran % (Auto) 0.200, Neut % (Auto) 72.9 H, Lymph % (Auto) 15.3 L, Dunn % (Auto) 10.9 H, Eos % (Auto) 0.5, Baso % (Auto) 0.2, Absolute Neuts (auto) 13.0 H, Absolute Lymphs (auto) 2.71, Nucleated RBC % 0, Differential Comment SCANNED, Diff Path Review December10/13/20 06:06: Sodium 136, Potassium 3.2 L, Chloride 102, Carbon Dioxide 29.0, Anion Gap 5, BUN 12, Creatinine 0.46 L, Estim Creat Clear Calc 49.24, Est GFR (MDRD) Af Amer 169, Est GFR (MDRD) Non-Af 140, BUN/Creatinine Ratio 26.1 H, Glucose 121 H, Calcium 8.2 L 10/13/20 06:06: Lactic Acid 0.9 Current Medications Acetaminophen (Acetaminophen 325 Mg Tablet) 650 mg PO Q4H PRN PRN PRN Reason: P/F Last Admin: 10/13/20 09:12 Dose: 650 mg Documented by: Atorvastatin Calcium (Atorvastatin Calcium 10 Mg Tablet) 10 mg PO QODAY@2200 [facility] Last Admin: 10/12/20 21:36 Dose: 10 mg Documented by: Docusate Sodium (Docusate Sodium 100 Mg Capsule) 200 mg PO BID [facility] Last Admin: 10/13/20 09:16 Dose: 200 mg Documented by: Enoxaparin Sodium (Enoxaparin 100 Mg/Ml Syringe) 100 mg SC Q12@0600,1800 [facility] Last Admin: 10/13/20 02:19 Dose: Not Given Documented by: Lactated Ringer's () 1,000 mls @ 100 mls/hr IV .Q10H [facility] Last Admin: 10/13/20 01:07 Dose: 100 mls/hr Documented by: Metoprolol Tartrate (Metoprolol Tartrate 25 Mg Tablet) 25 mg PO BID [facility] Last Admin: 10/13/20 09:10 Dose: 25 mg Documented by: Morphine Sulfate (Morphine 2 Mg/Ml Syringe) 2 - 4 mg IV Q2H PRN PRN PRN Reason: Pain Score 4-10 Ondansetron HCl (Ondansetron 4 Mg/2 Ml Vial) 4 mg IV Q6H PRN PRN PRN Reason: NAUSEA Oxycodone HCl (Oxycodone 5 Mg Tablet) 5 - 10 mg PO Q4H PRN PRN PRN Reason: Pain Score 4-10 Last Admin: 10/13/20 03:23 Dose: 5 mg Documented by: Pantoprazole Sodium (Pantoprazole Sodium 20 Mg Tablet) 20 mg PO DAILY RYAN Last Admin: 10/13/20 09:10 Dose: 20 mg Documented by: Sodium Chloride (0.9% Saline Lock 10 Ml Syringe) 10 - 40 ml IV UD PRN PRN Reason: SALINE FLUSH Last Admin: 10/13/20 02:57 Dose: 20 ml Documented by: Medical Necessity - Tobacco Use Smoking Status: Never smoker Tobacco Use: Non-smoker Assessment/Plan All Active Problems (Last Reviewed 10/29/17 @ 09:58 by Earlene Reddy) Strangulated ventral hernia (Acute) Calculus of gallbladder with chronic cholecystitis without obstruction (Acute) S/P colonoscopy (Acute) Status post partial hysterectomy (Acute) Status post laser ablation of incompetent vein (Acute) S/P nasal polypectomy (Acute) Diarrhea (Acute) Vitamin D deficiency (Acute) Hyperlipemia (Acute) Carpal tunnel syndrome, bilateral (Acute) Mitral stenosis with insufficiency (Acute) Mitral valve insufficiency (Acute) Bilateral carotid artery stenosis (Acute) Asthma (Acute) Fatty liver (Acute) Sciatica (Acute) Osteopenia (Acute) Paresthesia (Acute) 1. New onset atrial fibrillation with RVR-patient received IV Cardizem bolus overnight. Currently sinus rhythm with PACs. Continue metoprolol, Lovenox. Echocardiogram ordered. Check TSH, mag. 2. Lactic acidosis, leukocytosis-unclear etiology, possibly reactive. No fever. Patient states her white count has been elevated chronically as an outpatient. She denies urinary symptoms. No evidence of infection. Lactic acidosis resolved. Continues to have leukocytosis which again is chronic per patient. 3. Ventral hernia with strangulated small bowel status post resection of small bowel and primary anastomosis with repair of ventral hernia 10/12/[address] Moe- management per surgery. Advanced to clear liquid diet per surgery. 4. Hyperlipidemia-continue statin. DVT prophylaxis- SCDs, Lovenox Discharge planning: Patient considering SNF vs home with home health at discharge when medically stable This patient was seen by MANGO Haddad under the supervision of Dr. Mascorro. <Vishnu Mascorro - Last Filed: 10/13/20 12:14> - Physical Exam Vitals/I&O's: Vital Signs Temp Pulse Resp BP Pulse Ox 98.9 F 80 16 126/45 H 97 10/13/20 08:50 10/13/20 11:36 10/13/20 08:50 10/13/20 08:50 10/13/20 08:50 Oxygen Flow Rate (L/min) 2 Oxygen Delivery Method Room Air Weight: 99 kg Body Mass Index (BMI) 32.2 Intake and Output for Last 24 Hours 10/11/20 10/12/20 10/13/20 23:59 23:59 23:59 Intake Total 1000 / 1000 3506 / 3806 2291.25 / 2291.25 Balance 1000 / 1000 3506 / 3806 2291.25 / 2291.25 Microbiology Past 72 Hours 10/12/20 00:40 Mucosa - Nose SARS-CoV-2 Antigen (Rapid) - Final Laboratory Results 10/12/20 13:00: Lactic Acid 2.6 H* 10/13/20 06:06: WBC 17.8 H, RBC 4.11 L, Hgb 12.1, Hct 38.4, MCV 93.4, MCH 29.4, MCHC 31.5 L, RDW Std Deviation 50.3 H, RDW Coeff of Jaciel 14.6, Plt Count 251, MPV 8.9, Immature Gran % (Auto) 0.200, Neut % (Auto) 72.9 H, Lymph % (Auto) 15.3 L, Dunn % (Auto) 10.9 H, Eos % (Auto) 0.5, Baso % (Auto) 0.2, Absolute Neuts (auto) 13.0 H, Absolute Lymphs (auto) 2.71, Nucleated RBC % 0, Differential Comment SCANNED, Diff Path Review December10/13/20 06:06: Sodium 136, Potassium 3.2 L, Chloride 102, Carbon Dioxide 29.0, Anion Gap 5, BUN 12, Creatinine 0.46 L, Estim Creat Clear Calc 49.24, Est GFR (MDRD) Af Amer 169, Est GFR (MDRD) Non-Af 140, BUN/Creatinine Ratio 26.1 H, Glucose 121 H, Calcium 8.2 L 10/13/20 06:06: Lactic Acid 0.9 10/13/20 06:06: Magnesium 1.8, TSH 1.39 Current Medications Acetaminophen (Acetaminophen 325 Mg Tablet) 650 mg PO Q4H PRN PRN PRN Reason: P/F Last Admin: 10/13/20 09:12 Dose: 650 mg Documented by: Atorvastatin Calcium (Atorvastatin Calcium 10 Mg Tablet) 10 mg PO QODAY@2200 [facility] Last Admin: 10/12/20 21:36 Dose: 10 mg Documented by: Docusate Sodium (Docusate Sodium 100 Mg Capsule) 200 mg PO BID [facility] Last Admin: 10/13/20 09:16 Dose: 200 mg Documented by: Enoxaparin Sodium (Enoxaparin 100 Mg/Ml Syringe) 100 mg SC Q12@0600,1800 [facility] Last Admin: 10/13/20 02:19 Dose: Not Given Documented by: Lactated Ringer's () 1,000 mls @ 100 mls/hr IV .Q10H [facility] Last Admin: 10/13/20 11:13 Dose: 100 mls/hr Documented by: Metoprolol Tartrate (Metoprolol Tartrate 25 Mg Tablet) 25 mg PO BID [facility] Last Admin: 10/13/20 09:10 Dose: 25 mg Documented by: Morphine Sulfate (Morphine 2 Mg/Ml Syringe) 2 - 4 mg IV Q2H PRN PRN PRN Reason: Pain Score 4-10 Ondansetron HCl (Ondansetron 4 Mg/2 Ml Vial) 4 mg IV Q6H PRN PRN PRN Reason: NAUSEA Oxycodone HCl (Oxycodone 5 Mg Tablet) 5 - 10 mg PO Q4H PRN PRN PRN Reason: Pain Score 4-10 Last Admin: 10/13/20 03:23 Dose: 5 mg Documented by: Pantoprazole Sodium (Pantoprazole Sodium 20 Mg Tablet) 20 mg PO DAILY [facility] Last Admin: 10/13/20 09:10 Dose: 20 mg Documented by: Sodium Chloride (0.9% Saline Lock 10 Ml Syringe) 10 - 40 ml IV UD PRN PRN Reason: SALINE FLUSH Last Admin: 10/13/20 02:57 Dose: 20 ml Documented by: Assessment/Plan This patient was seen in conjunction with MANGO Haddad . I have independently interviewed and examined the patient and reviewed pertinent historical, laboratory, and other data. Please refer to MANGO Haddad note for details of this patient's presentation, findings, and recommendations. I have reviewed MANGO Haddad note and concur with documented findings. In brief, 75-year-old lady who underwent ventral hernia repair by Dr. Moe on 10/12/2020. The hospitalist service was consulted to assist with management of patient medical comorbidities. Admitted to monitored bed patient did develop A. fib with RVR overnight Physical Examination: GENERAL: cooperative HEENT: Atraumatic; EYES; Anicteric, Normal Conjunctiva NECK; supple, normal thyroid, RESPIRATORY: Diminished to auscultation CARDIOVASCULAR: Regular S1 S2, GI: soft, normoactive bowel sounds, MUSCULOSKELETAL: no muscle waisting NEURO: Awake; no lateralizing signs. SKIN: No Rash PSYCH; Flat affect Assessment: 1. Status post ventral hernia repair 2. Paroxysmal A. fib with RVR ? New Onset 3. Lactic acidosis 4. Dyslipidemia 5. Obesity with BMI of 32 point Recommendations: 1. I have discussed the results of my overview and impressions with the patient 2. Options for management were reviewed Inpatient E&M: 16520 Subs Hosp L2
[2020-10-13] MEDS: Potassium Chloride Oral Tablet 20 MEQ 40 MEQ PO (11:07)
[2020-10-13 11:21] LABS: Magnesium 1.8 mg/dL (1.6-2.6); Thyroid Stim Hormone (TSH) 1.39 uIU/mL (0.358-3.74)
--- NOTE | 2020-10-13 12:01 | CASEMGMT ---
Social Work Consult: SNF vs. Home Health Informant: MARISOL HURD Met with patient in room. Introduced self and social media manager role. Patient agreeable to speak with this social media manager. This social media manager inquired as to patient plan at discharge. Patient is wanting to return to home with home health services. Patient aware of concerns of patient returning to home but states my daughter will be staying with me. Patient provided with list of home health care services in-network with patient insurance. Patient choosing [facility] as provider. Patient to have PT/OT/SN at home. This social media manager inquired about DME needs for patient at time of discharge. Patient denies any DME needs. This social media manager noted that patient has been using at walker at the hospital and inquired if patient has a walker in the home. Patient reports to not have a walker in the home but when I get up I am fine. Patient has been walking short distances without the walker with therapy as per therapy note. Patient reports that patient daughter will be able to assist patient. Active support and listening provided. [facility]SN. Angelica also requesting for voicemail to be made to Chelsey ([phone]) at [facility]. Telephone call to matilde Barbosa left. Dr. Mascorro updated on patient plan. Tentative discharge tomorrow. PLAN: Home with [facility] and daughter to assist. Monserrat MARTI, [place]
[2020-10-13] MEDS: Ensure Clear 120 ML Liquid PO ×2 (13:40→17:08)
[2020-10-13] MEDS: Ondansetron 4 MG/2 ML Vial IV (22:09)
[2020-10-14] VITALS (42 sets, daily range): BP systolic 113–153; BP diastolic 50–96; PULSE 75–145; RESP 14–22; TEMP 36.6–37.6; O2SAT 90–97
--- NOTE | 2020-10-14 02:12 | EKG12_ITS ---
Test Reason : RHYTHM CHANGE Blood Pressure : / mmHG Vent. Rate : 142 BPM Atrial Rate : 182 BPM P-R Int : 000 ms QRS Dur : 080 ms QT Int : 300 ms P-R-T Axes : 000 -34 033 degrees QTc Int : 461 ms Atrial fibrillation Left axis deviation Low voltage QRS Abnormal ECG When compared with ECG of 12-OCT-2020 00:55, MANUAL COMPARISON REQUIRED, DATA IS UNCONFIRMED Confirmed by JEANETTE HADLEY, DEE DEE ([id number]), script editor MEGHAN RICHARDSON ([id number]) on 10/16/2020 11:01:34 AM Referred By: Todd Moe Confirmed By:DEE DEE REID MD
[2020-10-14] MEDS: 0.9% Saline Lock 10 ML Syringe IV ×3 (02:24→05:33)
[2020-10-14] MEDS: Metoprolol Tartrate 5 MG/5 ML Vial IV (02:25)
[2020-10-14 02:26] LABS: Bedside Glucose 120 mg/dL (70-110)
[2020-10-14] MEDS: dilTIAZem 25 MG/5 ML Vial IV BOLUS (03:07)
[2020-10-14] MEDS: Ondansetron 4 MG/2 ML Vial IV (03:08)
[2020-10-14 05:18] LABS: Hematocrit 44.1 % (37-47); Hemoglobin 14.2 g/dL (12.0-15.0); Mean Corp Hgb Conc 32.2 g/dL (32-36); Mean Corpuscular Hgb 30.2 pg (27.0-32.0); Mean Corpuscular Volume 93.8 fL (81-99); Mean Platelet Vol. 9.2 fl (6.2-12.0); Platelet Count 290 K/mm3 (150-450); RBC Distribution Width CV 14.2 % (11.6-14.6); RBC Distribution Width SD 49.9 fl (35.1-43.9); White Blood Count 15.6 K/mm3 (4.4-11.0)
[2020-10-14] MEDS: Acetaminophen 325 MG Tablet 650 MG PO (05:23)
[2020-10-14 05:40] LABS: Anion Gap 6 (5-15); BUN 10 mg/dL (7-18); BUN/Creat Ratio 17.2 RATIO (10-20); Calcium,Total 8.6 mg/dL (8.5-10.1); Chloride 101 mmol/L (98-107); Creatinine, Serum 0.58 mg/dL (0.55-1.02); EST Glomerular Filtration Rate 107 mL/min (>60); Est Glom Filt Rate - Afr Amer 129 mL/min (>60); Estimated Creatinine Clearance 49.24 ml/min; Glucose 135 mg/dL (74-106); Potassium 3.6 mmol/L (3.5-5.1); Sodium Level 135 mmol/L (136-145)
[2020-10-14] MEDS: Enoxaparin 100 MG/ML Syringe SC ×2 (07:04→17:15)
[2020-10-14] MEDS: dilTIAZem CD 120 MG Capsule PO ×2 (08:36→21:00)
[2020-10-14] MEDS: Metoprolol Tartrate 25 MG Tablet PO ×2 (08:37→17:14)
[2020-10-14] MEDS: Pantoprazole Sodium 20 MG Tablet PO (08:37)
--- NOTE | 2020-10-14 10:14 | PN_ITS ---
<MaikelClara WORK ORDER SORTING CLERK - Last Filed: 10/14/20 10:28> Patient Problems: Active and Suspected Problems (Last Reviewed 10/29/17 @ 09:58 by Earlene Reddy) Strangulated ventral hernia (Acute) Subjective: Patient seen and examined. States she had bowel movement early this morning and has since had loose stools. Denies abdominal pain. Reports fever, chills this morning which have since resolved. Went into atrial fibrillation with RVR early this morning and was placed on Cardizem drip. - Physical Exam Vitals/I&O's: Vital Signs Temp Pulse Resp BP Pulse Ox 99.6 F H 78 16 134/50 H 90 10/14/20 05:23 10/14/20 09:32 10/14/20 09:32 10/14/20 09:32 10/14/20 09:32 Oxygen Flow Rate (L/min) 1 Oxygen Delivery Method Nasal Cannula Weight: 218 lb 4.122 oz Body Mass Index (BMI) 32.2 Intake and Output for Last 24 Hours 10/12/20 10/13/20 10/14/20 23:59 23:59 23:59 Intake Total 3506 / 3806 3649.58 / 3649.58 533.00 / 533.00 Balance 3506 / 3806 3649.58 / 3649.58 533.00 / 533.00 General: Alert, Oriented x3, Cooperative HEENT: Atraumatic, PERRLA, EOMI, Normocephalic Neck: Supple, No JVD, Negative Carotid Bruits Lungs: Clear to auscultation, Diminished Cardiovascular: Regular rate, No murmurs Abdomen: Bowel Sounds Present, Soft, Non Tender, Non-Distended, - - Postop dressings intact Extremities: No clubbing, No cyanosis, No edema, Capillary Refill Less than 3 Seconds Skin: No rashes, No breakdown Musculoskeletal: No Tenderness to Palpation of Joints or Extremities Neurological: Cranial nerves II-XII grossly intact, Neuro grossly intact Psych/Mental Status: Normal Affect, Appropriate Microbiology Past 72 Hours 10/12/20 00:40 Mucosa - Nose SARS-CoV-2 Antigen (Rapid) - Final Laboratory Results 10/13/20 06:06: Magnesium 1.8, TSH 1.39 10/14/20 02:21: POC Glucose 120 H 10/14/20 05:12: WBC 15.6 H, RBC 4.70, Hgb 14.2, Hct 44.1, MCV 93.8, MCH 30.2, MCHC 32.2, RDW Std Deviation 49.9 H, RDW Coeff of Jaciel 14.2, Plt Count 290, MPV 9.2 10/14/20 05:12: Sodium 135 L, Potassium 3.6, Chloride 101, Carbon Dioxide 28.0, Anion Gap 6, BUN 10, Creatinine 0.58, Estim Creat Clear Calc 49.24, Est GFR (MDRD) Af Amer 129, Est GFR (MDRD) Non-Af 107, BUN/Creatinine Ratio 17.2, Glucose 135 H, Calcium 8.6 10/14/20 05:12: Troponin I < 0.015 10/14/20 08:00: Troponin I < 0.015 Current Medications Acetaminophen (Acetaminophen 325 Mg Tablet) 650 mg PO Q4H PRN PRN PRN Reason: P/F Last Admin: 10/14/20 05:23 Dose: 650 mg Documented by: Atorvastatin Calcium (Atorvastatin Calcium 10 Mg Tablet) 10 mg PO QODAY@2200 [facility] Last Admin: 10/12/20 21:36 Dose: 10 mg Documented by: Diltiazem HCl (Diltiazem Cd 120 Mg Capsule) 120 mg PO Q12 [facility] Last Admin: 10/14/20 08:36 Dose: 120 mg Documented by: Docusate Sodium (Docusate Sodium 100 Mg Capsule) 200 mg PO BID [facility] Last Admin: 10/14/20 08:36 Dose: Not Given Documented by: Enoxaparin Sodium (Enoxaparin 100 Mg/Ml Syringe) 100 mg SC Q12@0600,1800 [facility] Last Admin: 10/14/20 07:04 Dose: 100 mg Documented by: Diltiazem HCl 125 mg/ Dextrose 125 mls @ 5 mls/hr IV .Q25H [facility]; Protocol Last Titration: 10/14/20 09:32 Dose: 10 mg/hr, 10 mls/hr Documented by: Metoprolol Tartrate (Metoprolol Tartrate 25 Mg Tablet) 25 mg PO BID [facility] Last Admin: 10/14/20 08:37 Dose: 25 mg Documented by: Metoprolol Tartrate (Metoprolol Tartrate 5 Mg/5 Ml Vial) 5 mg IV Q6H PRN PRN PRN Reason: Tachycardia Last Admin: 10/14/20 02:25 Dose: 5 mg Documented by: Morphine Sulfate (Morphine 2 Mg/Ml Syringe) 2 - 4 mg IV Q2H PRN PRN PRN Reason: Pain Score 4-10 Nutritional Formula (Lactose Free) (Ensure Clear 120 Ml Liquid) 120 ml PO 4X/DAY [facility] Last Admin: 10/14/20 08:37 Dose: Not Given Documented by: Ondansetron HCl (Ondansetron 4 Mg/2 Ml Vial) 4 mg IV Q6H PRN PRN PRN Reason: NAUSEA Last Admin: 10/13/20 22:09 Dose: 4 mg Documented by: Oxycodone HCl (Oxycodone 5 Mg Tablet) 5 - 10 mg PO Q4H PRN PRN PRN Reason: Pain Score 4-10 Last Admin: 10/13/20 13:41 Dose: 5 mg Documented by: Pantoprazole Sodium (Pantoprazole Sodium 20 Mg Tablet) 20 mg PO DAILY [facility] Last Admin: 10/14/20 08:37 Dose: 20 mg Documented by: Sodium Chloride (0.9% Saline Lock 10 Ml Syringe) 10 - 40 ml IV UD PRN PRN Reason: SALINE FLUSH Last Admin: 10/14/20 05:33 Dose: 10 ml Documented by: Medical Necessity - Tobacco Use Smoking Status: Never smoker Tobacco Use: Non-smoker Assessment/Plan All Active Problems (Last Reviewed 10/29/17 @ 09:58 by Earlene Reddy) Strangulated ventral hernia (Acute) Calculus of gallbladder with chronic cholecystitis without obstruction (Acute) S/P colonoscopy (Acute) Status post partial hysterectomy (Acute) Status post laser ablation of incompetent vein (Acute) S/P nasal polypectomy (Acute) Diarrhea (Acute) Vitamin D deficiency (Acute) Hyperlipemia (Acute) Carpal tunnel syndrome, bilateral (Acute) Mitral stenosis with insufficiency (Acute) Mitral valve insufficiency (Acute) Bilateral carotid artery stenosis (Acute) Asthma (Acute) Fatty liver (Acute) Sciatica (Acute) Osteopenia (Acute) Paresthesia (Acute) 1. New onset atrial fibrillation with RVR-patient converted to sinus rhythm yesterday however returned to A. fib with RVR early this morning. Placed on IV Cardizem drip. Appears to have converted back to sinus rhythm at this time. Transition to oral Cardizem CD 120 mg p.o. every 12. Continue metoprolol 25 mg twice daily. On therapeutic Lovenox. TSH, mag normal. Echocardiogram demonstrates an EF of 55%. 2. Lactic acidosis, leukocytosis-unclear etiology, possibly reactive. Patient states her white count has been elevated chronically as an outpatient. She denies urinary symptoms. Lactic acidosis resolved. Continues to have leukocytosis which again is chronic per patient. Fever 101.6 last night, low- grade fever this morning. Obtain UA, urine culture, chest x-ray, blood cultures. 3. Ventral hernia with strangulated small bowel status post resection of small bowel and primary anastomosis with repair of ventral hernia 10/12/[address] Moe- management per surgery. Advanced to full liquid diet per surgery. Patient reports bowel movement this morning. 4. Hyperlipidemia-continue statin. DVT prophylaxis- SCDs, Lovenox Discharge planning: Patient considering SNF vs home with home health at discharge when medically stable This patient was seen by MANGO Haddad under the supervision of Dr. Mascorro. <Vishnu Mascorro - Last Filed: 10/14/20 10:56> - Physical Exam Vitals/I&O's: Vital Signs Temp Pulse Resp BP Pulse Ox 99.6 F H 77 19 H 133/59 H 92 10/14/20 05:23 10/14/20 10:16 10/14/20 10:16 10/14/20 10:16 10/14/20 10:16 Oxygen Flow Rate (L/min) 1 Oxygen Delivery Method Nasal Cannula Weight: 99 kg Body Mass Index (BMI) 32.2 Intake and Output for Last 24 Hours 10/12/20 10/13/20 10/14/20 23:59 23:59 23:59 Intake Total 3506 / 3806 3649.58 / 3649.58 540.34 / 540.34 Balance 3506 / 3806 3649.58 / 3649.58 540.34 / 540.34 Microbiology Past 72 Hours 10/12/20 00:40 Mucosa - Nose SARS-CoV-2 Antigen (Rapid) - Final Laboratory Results 10/13/20 06:06: Magnesium 1.8, TSH 1.39 10/14/20 02:21: POC Glucose 120 H 10/14/20 05:12: WBC 15.6 H, RBC 4.70, Hgb 14.2, Hct 44.1, MCV 93.8, MCH 30.2, MCHC 32.2, RDW Std Deviation 49.9 H, RDW Coeff of Jaciel 14.2, Plt Count 290, MPV 9.2 10/14/20 05:12: Sodium 135 L, Potassium 3.6, Chloride 101, Carbon Dioxide 28.0, Anion Gap 6, BUN 10, Creatinine 0.58, Estim Creat Clear Calc 49.24, Est GFR (MDRD) Af Amer 129, Est GFR (MDRD) Non-Af 107, BUN/Creatinine Ratio 17.2, Glucose 135 H, Calcium 8.6 10/14/20 05:12: Troponin I < 0.015 10/14/20 08:00: Troponin I < 0.015 Current Medications Acetaminophen (Acetaminophen 325 Mg Tablet) 650 mg PO Q4H PRN PRN PRN Reason: P/F Last Admin: 10/14/20 05:23 Dose: 650 mg Documented by: Atorvastatin Calcium (Atorvastatin Calcium 10 Mg Tablet) 10 mg PO QODAY@2200 [facility] Last Admin: 10/12/20 21:36 Dose: 10 mg Documented by: Diltiazem HCl (Diltiazem Cd 120 Mg Capsule) 120 mg PO Q12 [facility] Last Admin: 10/14/20 08:36 Dose: 120 mg Documented by: Docusate Sodium (Docusate Sodium 100 Mg Capsule) 200 mg PO BID [facility] Last Admin: 10/14/20 08:36 Dose: Not Given Documented by: Enoxaparin Sodium (Enoxaparin 100 Mg/Ml Syringe) 100 mg SC Q12@0600,1800 [facility] Last Admin: 10/14/20 07:04 Dose: 100 mg Documented by: Diltiazem HCl 125 mg/ Dextrose 125 mls @ 5 mls/hr IV .Q25H [facility]; Protocol Last Titration: 10/14/20 10:16 Dose: 5 mg/hr, 5 mls/hr Documented by: Metoprolol Tartrate (Metoprolol Tartrate 25 Mg Tablet) 25 mg PO BID [facility] Last Admin: 10/14/20 08:37 Dose: 25 mg Documented by: Metoprolol Tartrate (Metoprolol Tartrate 5 Mg/5 Ml Vial) 5 mg IV Q6H PRN PRN PRN Reason: Tachycardia Last Admin: 10/14/20 02:25 Dose: 5 mg Documented by: Morphine Sulfate (Morphine 2 Mg/Ml Syringe) 2 - 4 mg IV Q2H PRN PRN PRN Reason: Pain Score 4-10 Nutritional Formula (Lactose Free) (Ensure Clear 120 Ml Liquid) 120 ml PO 4X/DAY [facility] Last Admin: 10/14/20 08:37 Dose: Not Given Documented by: Ondansetron HCl (Ondansetron 4 Mg/2 Ml Vial) 4 mg IV Q6H PRN PRN PRN Reason: NAUSEA Last Admin: 10/13/20 22:09 Dose: 4 mg Documented by: Oxycodone HCl (Oxycodone 5 Mg Tablet) 5 - 10 mg PO Q4H PRN PRN PRN Reason: Pain Score 4-10 Last Admin: 10/13/20 13:41 Dose: 5 mg Documented by: Pantoprazole Sodium (Pantoprazole Sodium 20 Mg Tablet) 20 mg PO DAILY [facility] Last Admin: 10/14/20 08:37 Dose: 20 mg Documented by: Sodium Chloride (0.9% Saline Lock 10 Ml Syringe) 10 - 40 ml IV UD PRN PRN Reason: SALINE FLUSH Last Admin: 10/14/20 05:33 Dose: 10 ml Documented by: Assessment/Plan This patient was seen in conjunction with MANGO Haddad . I have independently interviewed and examined the patient and reviewed pertinent historical, laboratory, and other data. Please refer to MANGO Haddad note for details of this patient's presentation, findings, and recommendations. I have reviewed MANGO Haddad note and concur with documented findings. In brief, 75-year-old lady who underwent ventral hernia repair by Dr. Moe on 10/12/2020. The hospitalist service was consulted to assist with management of patient medical comorbidities. Admitted to monitored bed patient did develop A. fib with RVR overnight 10/14/2020: Patient went back into A. fib with RVR during the night resulting in patient being started on Cardizem drip. EKG and telemetry strips reviewed this morning shows patient is back in sinus rhythm but having frequent PACs. Cardizem drip discontinued patient started on p.o. Cardizem Physical Examination: GENERAL: cooperative HEENT: Atraumatic; EYES; Anicteric, Normal Conjunctiva NECK; supple, normal thyroid, RESPIRATORY: Diminished to auscultation CARDIOVASCULAR: Regular S1 S2, GI: soft, normoactive bowel sounds, MUSCULOSKELETAL: no muscle waisting NEURO: Awake; no lateralizing signs. SKIN: No Rash PSYCH; Flat affect Assessment: 1. Status post ventral hernia repair 2. Paroxysmal A. fib with RVR ? 3. Lactic acidosis 4. Dyslipidemia 5. Obesity with BMI of 32 point Recommendations: 1. I have discussed the results of my overview and impressions with the patient 2. Options for management were reviewed Inpatient E&M: 98631 Subs Hosp L2
--- NOTE | 2020-10-14 10:25 | RAD_ITS ---
STUDY: X-RAY CHEST REASON FOR EXAM: Female, 75 years old. Fever, hypoxia. RECENT ABD SURGERY TECHNIQUE: PA and lateral views. COMPARISON: 09/24/2017. FINDINGS: Right metallic shoulder prosthesis was not present previously. The lungs are clear and expanded. There is no demonstrated pleural abnormality. Normal size heart. Normal mediastinum and nguyen. Normal visualized pulmonary arteries. Normal visualized aortic arch and descending thoracic aorta. Normal visualized thoracic spine. Normal visualized ribs, clavicles, and shoulders. There is no demonstrated abnormality of the visualized soft tissue structures of the upper abdomen. RAD/Chest PA and Lateral IMPRESSION: 1. No acute cardiopulmonary pathology. 2. Right metallic shoulder arthroplasty is the only new finding when compared to 09/24/2017. Electronically Signed: Osiel Feliz MD at 14:48 EST , Service support ,
--- NOTE | 2020-10-14 10:29 | PN.SURG_ITS ---
Patient Problems: Active and Suspected Problems (Last Reviewed 10/29/17 @ 09:58 by Earlene Reddy) Strangulated ventral hernia (Acute) Subjective: patient had bowel movement, but no true flatus noted feels bloated denies nausea, does feel slightly hungry - Physical Exam Vitals/I&O's: Vital Signs Temp Pulse Resp BP Pulse Ox 99.6 F H 77 19 H 133/59 H 92 10/14/20 05:23 10/14/20 10:16 10/14/20 10:16 10/14/20 10:16 10/14/20 10:16 Oxygen Flow Rate (L/min) 1 Oxygen Delivery Method Nasal Cannula Weight: 99 kg Body Mass Index (BMI) 32.2 Intake and Output for Last 24 Hours 10/12/20 10/13/20 10/14/20 23:59 23:59 23:59 Intake Total 3506 / 3806 3649.58 / 3649.58 540.34 / 540.34 Balance 3506 / 3806 3649.58 / 3649.58 540.34 / 540.34 General: Alert, Oriented x3 Oral: Moist Mucosa Neck: Supple Lungs: Normal air movement Abdomen: Soft - distended, tympanitic Microbiology Past 72 Hours 10/12/20 00:40 Mucosa - Nose SARS-CoV-2 Antigen (Rapid) - Final Laboratory Results 10/13/20 06:06: Magnesium 1.8, TSH 1.39 10/14/20 02:21: POC Glucose 120 H 10/14/20 05:12: WBC 15.6 H, RBC 4.70, Hgb 14.2, Hct 44.1, MCV 93.8, MCH 30.2, MCHC 32.2, RDW Std Deviation 49.9 H, RDW Coeff of Jaciel 14.2, Plt Count 290, MPV 9.2 10/14/20 05:12: Sodium 135 L, Potassium 3.6, Chloride 101, Carbon Dioxide 28.0, Anion Gap 6, BUN 10, Creatinine 0.58, Estim Creat Clear Calc 49.24, Est GFR (MDRD) Af Amer 129, Est GFR (MDRD) Non-Af 107, BUN/Creatinine Ratio 17.2, Glucose 135 H, Calcium 8.6 10/14/20 05:12: Troponin I < 0.015 10/14/20 08:00: Troponin I < 0.015 Current Medications Acetaminophen (Acetaminophen 325 Mg Tablet) 650 mg PO Q4H PRN PRN PRN Reason: P/F Last Admin: 10/14/20 05:23 Dose: 650 mg Documented by: Atorvastatin Calcium (Atorvastatin Calcium 10 Mg Tablet) 10 mg PO QODAY@2200 [facility] Last Admin: 10/12/20 21:36 Dose: 10 mg Documented by: Diltiazem HCl (Diltiazem Cd 120 Mg Capsule) 120 mg PO Q12 [facility] Last Admin: 10/14/20 08:36 Dose: 120 mg Documented by: Docusate Sodium (Docusate Sodium 100 Mg Capsule) 200 mg PO BID [facility] Last Admin: 10/14/20 08:36 Dose: Not Given Documented by: Enoxaparin Sodium (Enoxaparin 100 Mg/Ml Syringe) 100 mg SC Q12@0600,1800 [facility] Last Admin: 10/14/20 07:04 Dose: 100 mg Documented by: Diltiazem HCl 125 mg/ Dextrose 125 mls @ 5 mls/hr IV .Q25H [facility]; Protocol Last Titration: 10/14/20 10:16 Dose: 5 mg/hr, 5 mls/hr Documented by: Metoprolol Tartrate (Metoprolol Tartrate 25 Mg Tablet) 25 mg PO BID [facility] Last Admin: 10/14/20 08:37 Dose: 25 mg Documented by: Metoprolol Tartrate (Metoprolol Tartrate 5 Mg/5 Ml Vial) 5 mg IV Q6H PRN PRN PRN Reason: Tachycardia Last Admin: 10/14/20 02:25 Dose: 5 mg Documented by: Morphine Sulfate (Morphine 2 Mg/Ml Syringe) 2 - 4 mg IV Q2H PRN PRN PRN Reason: Pain Score 4-10 Nutritional Formula (Lactose Free) (Ensure Clear 120 Ml Liquid) 120 ml PO 4X/DAY [facility] Last Admin: 10/14/20 08:37 Dose: Not Given Documented by: Ondansetron HCl (Ondansetron 4 Mg/2 Ml Vial) 4 mg IV Q6H PRN PRN PRN Reason: NAUSEA Last Admin: 10/13/20 22:09 Dose: 4 mg Documented by: Oxycodone HCl (Oxycodone 5 Mg Tablet) 5 - 10 mg PO Q4H PRN PRN PRN Reason: Pain Score 4-10 Last Admin: 10/13/20 13:41 Dose: 5 mg Documented by: Pantoprazole Sodium (Pantoprazole Sodium 20 Mg Tablet) 20 mg PO DAILY [facility] Last Admin: 10/14/20 08:37 Dose: 20 mg Documented by: Sodium Chloride (0.9% Saline Lock 10 Ml Syringe) 10 - 40 ml IV UD PRN PRN Reason: SALINE FLUSH Last Admin: 10/14/20 05:33 Dose: 10 ml Documented by: Medical Necessity - Tobacco Use Smoking Status: Never smoker Tobacco Use: Non-smoker Assessment/Plan All Active Problems (Last Reviewed 10/29/17 @ 09:58 by Earlene Reddy) Strangulated ventral hernia (Acute) Calculus of gallbladder with chronic cholecystitis without obstruction (Acute) S/P colonoscopy (Acute) Status post partial hysterectomy (Acute) Status post laser ablation of incompetent vein (Acute) S/P nasal polypectomy (Acute) Diarrhea (Acute) Vitamin D deficiency (Acute) Hyperlipemia (Acute) Carpal tunnel syndrome, bilateral (Acute) Mitral stenosis with insufficiency (Acute) Mitral valve insufficiency (Acute) Bilateral carotid artery stenosis (Acute) Asthma (Acute) Fatty liver (Acute) Sciatica (Acute) Osteopenia (Acute) Paresthesia (Acute) Impression: s/p small bowel resection for strangulated ventral hernia afib with RVR Plan: tolerating clears, will maintain this for today encourage ambulation and incentive spirometry patient with persistent elevated WBC, but slowly trending down - continue observation cardiac care as per internal medicine - appreciate their management of afib with RVR
[2020-10-14 16:10] LABS: Red Blood Cells-Urine 0 SEEN /hpf (0-5)
[2020-10-14 16:20] LABS: Glucose, Dipstick Normal (Normal); Ketone-Dipstick 50 mg/dl (Negative); Leukocyte Esterase-Dipstick 25 /ul (Negative); Nitrite-Dipstick Negative (Negative); Occult Blood-Urine 25 /ul (Negative); Protein-Dipstick 30 mg/dl (Negative); Specific Gravity, Urine 1.015 (1.002-1.030); Urine Bilirubin Dipstick Negative (Negative); Urine Urobilinogen Normal (Normal)
[2020-10-14 16:30] LABS: Squamous Epithelial Cells - UA 5-10 SEEN /hpf (5-10)
[2020-10-14 16:31] LABS: White Blood Cells 0-5 SEEN /hpf (0-5)
[2020-10-14 16:32] LABS: Bacteria RARE /hpf (None Seen); Color, Urine Yellow (Yellow); Mucous, Urine 1+ /hpf (<or=2+); Urine Clarity Clear (Clear)
[2020-10-14] MEDS: Atorvastatin Calcium 10 MG Tablet PO (21:00)
[2020-10-14] MEDS: Metoprolol Tartrate 50 MG Tablet PO (21:00)
[2020-10-15] VITALS (12 sets, daily range): BP systolic 116–129; BP diastolic 59–70; PULSE 77–124; RESP 16; TEMP 36.3–37.2; O2SAT 93–97
[2020-10-15] MEDS: Enoxaparin 100 MG/ML Syringe SC ×2 (05:06→17:04)
[2020-10-15 06:00] LABS: Hematocrit 39.9 % (37-47); Hemoglobin 12.9 g/dL (12.0-15.0); Mean Corp Hgb Conc 32.3 g/dL (32-36); Mean Corpuscular Hgb 30.1 pg (27.0-32.0); Mean Platelet Vol. 9.3 fl (6.2-12.0); Platelet Count 342 K/mm3 (150-450); RBC Distribution Width CV 14.2 % (11.6-14.6); RBC Distribution Width SD 48.1 fl (35.1-43.9); Red Blood Count 4.29 M/mm3 (4.2-5.4); White Blood Count 12.7 K/mm3 (4.4-11.0)
[2020-10-15 06:42] LABS: Anion Gap 8 (5-15); BUN 12 mg/dL (7-18); BUN/Creat Ratio 28.6 RATIO (10-20); Calcium,Total 8.5 mg/dL (8.5-10.1); Chloride 106 mmol/L (98-107); Creatinine, Serum 0.42 mg/dL (0.55-1.02); EST Glomerular Filtration Rate 156 mL/min (>60); Est Glom Filt Rate - Afr Amer 188 mL/min (>60); Estimated Creatinine Clearance 49.24 ml/min; Glucose 100 mg/dL (74-106); Potassium 2.9 mmol/L (3.5-5.1); Sodium Level 138 mmol/L (136-145)
[2020-10-15] MEDS: Potassium Chloride Oral Tablet 20 MEQ 40 MEQ PO (07:57)
--- NOTE | 2020-10-15 09:38 | PN.SURG_ITS ---
Patient Problems: Active and Suspected Problems (Last Reviewed 10/29/17 @ 09:58 by Earlene Reddy) Strangulated ventral hernia (Acute) Subjective: Patient has been having loose diarrhea multiple times overnight. Patient states she has not had much flatus and still feels a little bit bloated. And then is only a little bit tender at incision. - Physical Exam Vitals/I&O's: Vital Signs Temp Pulse Resp BP Pulse Ox 97.4 F L 109 H 16 117/63 93 10/15/20 05:05 10/15/20 07:00 10/15/20 05:05 10/15/20 05:05 10/15/20 05:05 Oxygen Flow Rate (L/min) 1 Oxygen Delivery Method Room Air Weight: 218 lb 4.122 oz Body Mass Index (BMI) 32.2 Intake and Output for Last 24 Hours 10/13/20 10/14/20 10/15/20 23:59 23:59 23:59 Intake Total 3649.58 / 3649.58 1424.09 / 1424.09 360 / 360 Balance 3649.58 / 3649.58 1424.09 / 1424.09 360 / 360 General: Alert, Oriented x3, Cooperative, No apparent distress Cardiovascular: Regular rate Abdomen: Distended - Mild, Tender - Near incision, minimal blanching, and no real erythema, some purulent drainage after dressing from surgery removed, unable to express any further drainage. Microbiology Past 72 Hours 10/14/20 15:55 Stool Enteric Bacteriology - Final 10/14/20 15:55 Stool C. difficile DNA Amplification - Final Laboratory Results 10/14/20 11:11: Troponin I < 0.015 10/14/20 15:56: Urine Color Yellow, Urine Clarity Clear, Urine pH 6.0, Ur Specific [place] 1.015, Urine Protein 30 H, Urine Glucose (UA) Normal, Urine Ketones 50 H, Urine Occult Blood 25 H, Urine Nitrite Negative, Urine Bilirubin Negative, Urine Urobilinogen Normal, Ur Leukocyte Esterase 25 H, Urine RBC 0 SEEN, Urine WBC 0-5 SEEN, Ur Squamous Epith Cells 5-10 SEEN, Urine Bacteria RARE, Urine Mucus 1+ 10/15/20 05:42: WBC 12.7 H, RBC 4.29, Hgb 12.9, Hct 39.9, MCV 93.0, MCH 30.1, MCHC 32.3, RDW Std Deviation 48.1 H, RDW Coeff of Jaciel 14.2, Plt Count 342, MPV 9.3 10/15/20 05:42: Sodium 138, Potassium 2.9 L, Chloride 106, Carbon Dioxide 24.0, Anion Gap 8, BUN 12, Creatinine 0.42 L, Estim Creat Clear Calc 49.24, Est GFR (MDRD) Af Amer 188, Est GFR (MDRD) Non-Af 156, BUN/Creatinine Ratio 28.6 H, Glucose 100, Calcium 8.5 Current Medications Acetaminophen (Acetaminophen 325 Mg Tablet) 650 mg PO Q4H PRN PRN PRN Reason: P/F Last Admin: 10/14/20 05:23 Dose: 650 mg Documented by: Atorvastatin Calcium (Atorvastatin Calcium 10 Mg Tablet) 10 mg PO QODAY@2200 [facility] Last Admin: 10/14/20 21:00 Dose: 10 mg Documented by: Diltiazem HCl (Diltiazem Cd 120 Mg Capsule) 120 mg PO Q12 [facility] Last Admin: 10/14/20 21:00 Dose: 120 mg Documented by: Enoxaparin Sodium (Enoxaparin 100 Mg/Ml Syringe) 100 mg SC Q12@0600,1800 [facility] Last Admin: 10/15/20 05:06 Dose: 100 mg Documented by: Metoprolol Tartrate (Metoprolol Tartrate 5 Mg/5 Ml Vial) 5 mg IV Q6H PRN PRN PRN Reason: Tachycardia Last Admin: 10/14/20 02:25 Dose: 5 mg Documented by: Metoprolol Tartrate (Metoprolol Tartrate 50 Mg Tablet) 50 mg PO BID [facility] Last Admin: 10/14/20 21:00 Dose: 50 mg Documented by: Morphine Sulfate (Morphine 2 Mg/Ml Syringe) 2 - 4 mg IV Q2H PRN PRN PRN Reason: Pain Score 4-10 Nutritional Formula (Lactose Free) (Ensure Clear 120 Ml Liquid) 120 ml PO 4X/DAY [facility] Last Admin: 10/14/20 20:57 Dose: Not Given Documented by: Ondansetron HCl (Ondansetron 4 Mg/2 Ml Vial) 4 mg IV Q6H PRN PRN PRN Reason: NAUSEA Last Admin: 10/13/20 22:09 Dose: 4 mg Documented by: Oxycodone HCl (Oxycodone 5 Mg Tablet) 5 - 10 mg PO Q4H PRN PRN PRN Reason: Pain Score 4-10 Last Admin: 10/13/20 13:41 Dose: 5 mg Documented by: Pantoprazole Sodium (Pantoprazole Sodium 20 Mg Tablet) 20 mg PO DAILY [facility] Last Admin: 10/14/20 08:37 Dose: 20 mg Documented by: Sodium Chloride (0.9% Saline Lock 10 Ml Syringe) 10 - 40 ml IV UD PRN PRN Reason: SALINE FLUSH Last Admin: 10/14/20 05:33 Dose: 10 ml Documented by: Medical Necessity - Tobacco Use Smoking Status: Never smoker Tobacco Use: Non-smoker Assessment/Plan All Active Problems (Last Reviewed 10/29/17 @ 09:58 by Earlene Reddy) Strangulated ventral hernia (Acute) Calculus of gallbladder with chronic cholecystitis without obstruction (Acute) S/P colonoscopy (Acute) Status post partial hysterectomy (Acute) Status post laser ablation of incompetent vein (Acute) S/P nasal polypectomy (Acute) Diarrhea (Acute) Vitamin D deficiency (Acute) Hyperlipemia (Acute) Carpal tunnel syndrome, bilateral (Acute) Mitral stenosis with insufficiency (Acute) Mitral valve insufficiency (Acute) Bilateral carotid artery stenosis (Acute) Asthma (Acute) Fatty liver (Acute) Sciatica (Acute) Osteopenia (Acute) Paresthesia (Acute) Advance to a full diet. Will have dressing change twice a day, place patient on Ancef due to wound infec tion may be possible source of white blood cell count however did go down on its own from 15-12 today. Hypokalemia replaced Encourage ambulation in the hall Renetta Arredondo M.D. Pager: [phone] [facility] [address] [place] [address], [facility], [address] [place] [address] Office: [phone]
[2020-10-15] MEDS: Pantoprazole Sodium 20 MG Tablet PO (10:22)
[2020-10-15] MEDS: Metoprolol Tartrate 50 MG Tablet PO ×2 (10:22→21:04)
[2020-10-15] MEDS: dilTIAZem CD 120 MG Capsule PO ×2 (10:23→21:02)
[2020-10-15] MEDS: Ensure Clear 120 ML Liquid PO (10:24)
--- NOTE | 2020-10-15 12:17 | CASEMGMT ---
Addendum entered by Palmira Marshall 10/15/20 14:57: Order placed for [facility] SN, PT/OT at this time. Roxana DAMON CM Addendum entered by Palmira Marshall 10/15/20 14:56: This RN CM received message from [facility], stating they can accept pt at this time. [facility] to be updated when pt ready for discharge. Roxana DAMON CM Original Note: This RN CM to room to discuss discharge plan with pt at this time. Pt states she would still like to go home with [facility] for SN, PT/OT at this time. Per report, referral had already been made to [facility] on 10/13 and this RN CM left a message with them at this time in regards to same. Pt states that she has a walker from a friend that she will use. Pt states no further questions/concerns/needs at this time. CM to follow. Roxana DAMON
--- NOTE | 2020-10-15 12:28 | PN_ITS ---
<MaikelClara AUDIT REVIEWER - Last Filed: 10/15/20 12:36> Patient Problems: Active and Suspected Problems (Last Reviewed 10/29/17 @ 09:58 by Earlene Reddy) Strangulated ventral hernia (Acute) Subjective: Patient seen and examined. Denies abdominal pain. Denies fever, chills. Reports ongoing diarrhea. Denies other symptoms or complaints. - Physical Exam Vitals/I&O's: Vital Signs Temp Pulse Resp BP Pulse Ox 98.5 F 105 H 16 129/59 H 96 10/15/20 10:20 10/15/20 10:22 10/15/20 10:20 10/15/20 10:20 10/15/20 10:20 Oxygen Flow Rate (L/min) 1 Oxygen Delivery Method Room Air Weight: 218 lb 4.122 oz Body Mass Index (BMI) 32.2 Intake and Output for Last 24 Hours 10/13/20 10/14/20 10/15/20 23:59 23:59 23:59 Intake Total 3649.58 / 3649.58 1424.09 / 1424.09 360 / 360 Balance 3649.58 / 3649.58 1424.09 / 1424.09 360 / 360 General: Alert, Oriented x3, Cooperative HEENT: Atraumatic, PERRLA, EOMI, Normocephalic Neck: Supple, No JVD, Negative Carotid Bruits Lungs: Clear to auscultation, Normal air movement Cardiovascular: - - Atrial fibrillation, rate controlled Abdomen: Bowel Sounds Present, Soft, Non Tender, Non-Distended, - - Postop dressings intact Extremities: No clubbing, No cyanosis, No edema, Capillary Refill Less than 3 Seconds Skin: No rashes, No breakdown Musculoskeletal: No Tenderness to Palpation of Joints or Extremities Neurological: Cranial nerves II-XII grossly intact, Neuro grossly intact Psych/Mental Status: Normal Affect, Appropriate Microbiology Past 72 Hours 10/14/20 15:55 Stool Enteric Bacteriology - Final 10/14/20 15:55 Stool C. difficile DNA Amplification - Final Laboratory Results 10/14/20 15:56: Urine Color Yellow, Urine Clarity Clear, Urine pH 6.0, Ur Spe cific [place] 1.015, Urine Protein 30 H, Urine Glucose (UA) Normal, Urine Ketones 50 H, Urine Occult Blood 25 H, Urine Nitrite Negative, Urine Bilirubin Negative, Urine Urobilinogen Normal, Ur Leukocyte Esterase 25 H, Urine RBC 0 SEEN, Urine WBC 0-5 SEEN, Ur Squamous Epith Cells 5-10 SEEN, Urine Bacteria RARE, Urine Mucus 1+ 10/15/20 05:42: WBC 12.7 H, RBC 4.29, Hgb 12.9, Hct 39.9, MCV 93.0, MCH 30.1, MCHC 32.3, RDW Std Deviation 48.1 H, RDW Coeff of Jaciel 14.2, Plt Count 342, MPV 9.3 10/15/20 05:42: Sodium 138, Potassium 2.9 L, Chloride 106, Carbon Dioxide 24.0, Anion Gap 8, BUN 12, Creatinine 0.42 L, Estim Creat Clear Calc 49.24, Est GFR (MDRD) Af Amer 188, Est GFR (MDRD) Non-Af 156, BUN/Creatinine Ratio 28.6 H, Glucose 100, Calcium 8.5 Current Medications Acetaminophen (Acetaminophen 325 Mg Tablet) 650 mg PO Q4H PRN PRN PRN Reason: P/F Last Admin: 10/14/20 05:23 Dose: 650 mg Documented by: Atorvastatin Calcium (Atorvastatin Calcium 10 Mg Tablet) 10 mg PO QODAY@2200 [facility] Last Admin: 10/14/20 21:00 Dose: 10 mg Documented by: Diltiazem HCl (Diltiazem Cd 120 Mg Capsule) 120 mg PO Q12 [facility] Last Admin: 10/15/20 10:23 Dose: 120 mg Documented by: Enoxaparin Sodium (Enoxaparin 100 Mg/Ml Syringe) 100 mg SC Q12@0600,1800 [facility] Last Admin: 10/15/20 05:06 Dose: 100 mg Documented by: Cefazolin Sodium 2 gm/ Sodium (Chloride) 110 mls @ 150 mls/hr IV Q8 [facility] Metoprolol Tartrate (Metoprolol Tartrate 5 Mg/5 Ml Vial) 5 mg IV Q6H PRN PRN PRN Reason: Tachycardia Last Admin: 10/14/20 02:25 Dose: 5 mg Documented by: Metoprolol Tartrate (Metoprolol Tartrate 50 Mg Tablet) 50 mg PO BID [facility] Last Admin: 10/15/20 10:22 Dose: 50 mg Documented by: Morphine Sulfate (Morphine 2 Mg/Ml Syringe) 2 - 4 mg IV Q2H PRN PRN PRN Reason: Pain Score 4-10 Nutritional Formula (Lactose Free) (Ensure Clear 120 Ml Liquid) 120 ml PO 4X/DAY [facility] Last Admin: 10/15/20 10:24 Dose: 120 ml Documented by: Nutritional Formula (Lactose Free) (Ensure Enlive 120 Ml Liquid) 120 ml PO 4X/DAY [facility] Ondansetron HCl (Ondansetron 4 Mg/2 Ml Vial) 4 mg IV Q6H PRN PRN PRN Reason: NAUSEA Last Admin: 10/13/20 22:09 Dose: 4 mg Documented by: Oxycodone HCl (Oxycodone 5 Mg Tablet) 5 - 10 mg PO Q4H PRN PRN PRN Reason: Pain Score 4-10 Last Admin: 10/13/20 13:41 Dose: 5 mg Documented by: Pantoprazole Sodium (Pantoprazole Sodium 20 Mg Tablet) 20 mg PO DAILY [facility] Last Admin: 10/15/20 10:22 Dose: 20 mg Documented by: Sodium Chloride (0.9% Saline Lock 10 Ml Syringe) 10 - 40 ml IV UD PRN PRN Reason: SALINE FLUSH Last Admin: 10/14/20 05:33 Dose: 10 ml Documented by: Medical Necessity - Tobacco Use Smoking Status: Never smoker Tobacco Use: Non-smoker Assessment/Plan All Active Problems (Last Reviewed 10/29/17 @ 09:58 by Earlene Reddy) Strangulated ventral hernia (Acute) Calculus of gallbladder with chronic cholecystitis without obstruction (Acute) S/P colonoscopy (Acute) Status post partial hysterectomy (Acute) Status post laser ablation of incompetent vein (Acute) S/P nasal polypectomy (Acute) Diarrhea (Acute) Vitamin D deficiency (Acute) Hyperlipemia (Acute) Carpal tunnel syndrome, bilateral (Acute) Mitral stenosis with insufficiency (Acute) Mitral valve insufficiency (Acute) Bilateral carotid artery stenosis (Acute) Asthma (Acute) Fatty liver (Acute) Sciatica (Acute) Osteopenia (Acute) Paresthesia (Acute) 1. New onset atrial fibrillation with RVR-continue oral Cardizem CD 120 mg p.o. every 12. Continue metoprolol 50 mg twice daily. On therapeutic Lovenox. TSH, mag normal. Echocardiogram demonstrates an EF of 55%. Rate currently controlled. Plan for transition to novel anticoagulant at discharge. 2. Lactic acidosis, leukocytosis-unclear etiology, possibly reactive. Patient states her white count has been elevated chronically as an outpatient. She denies urinary symptoms. Lactic acidosis resolved. Fever improved. Initiated on IV cefazolin due to purulent material on postop dressing. Blood and urine cultures pending. Chest x-ray unremarkable. 3. Ventral hernia with strangulated small bowel status post resection of small bowel and primary anastomosis with repair of ventral hernia 10/12/[address] Moe- management per surgery. Advanced to full liquid diet per surgery. Patient reports ongoing diarrhea. Stool studies negative. 4. Hyperlipidemia-continue statin. DVT prophylaxis- SCDs, Lovenox Discharge planning: Home with home health when medically stable This patient was seen by MANGO Haddad under the supervision of Dr. Zhu. <Jose Juan Zhu - Last Filed: 10/15/20 15:09> - Physical Exam Vitals/I&O's: Vital Signs Temp Pulse Resp BP Pulse Ox 36.9 C 105 H 16 129/59 H 96 10/15/20 10:20 10/15/20 10:22 10/15/20 10:20 10/15/20 10:20 10/15/20 10:20 Oxygen Flow Rate (L/min) 1 Oxygen Delivery Method Room Air Weight: 99 kg Body Mass Index (BMI) 32.2 Intake and Output for Last 24 Hours 10/13/20 10/14/20 10/15/20 23:59 23:59 23:59 Intake Total 3649.58 / 3649.58 1424.09 / 1424.09 840 / 840 Balance 3649.58 / 3649.58 1424.09 / 1424.09 840 / 840 General: Alert, Cooperative HEENT: Atraumatic, Normocephalic Lungs: Clear to auscultation, Normal air movement Cardiovascular: - Abdomen: Bowel Sounds Present, Soft, Distended, - Extremities: No clubbing, No cyanosis, No edema, Capillary Refill Less than 3 Seconds Skin: No rashes, No breakdown Musculoskeletal: No Tenderness to Palpation of Joints or Extremities Neurological: Cranial nerves II-XII grossly intact, Neuro grossly intact Psych/Mental Status: Normal Affect, Appropriate Microbiology Past 72 Hours 10/14/20 15:55 Stool Enteric Bacteriology - Final 10/14/20 15:55 Stool C. difficile DNA Amplification - Final Laboratory Results 10/13/20 06:06: Diff Path Review Reviewed 10/14/20 15:56: Urine Color Yellow, Urine Clarity Clear, Urine pH 6.0, Ur Specific [place] 1.015, Urine Protein 30 H, Urine Glucose (UA) Normal, Urine Ketones 50 H, Urine Occult Blood 25 H, Urine Nitrite Negative, Urine Bilirubin Negative, Urine Urobilinogen Normal, Ur Leukocyte Esterase 25 H, Urine RBC 0 SEEN, Urine WBC 0-5 SEEN, Ur Squamous Epith Cells 5-10 SEEN, Urine Bacteria RARE, Urine Mucus 1+ 10/15/20 05:42: WBC 12.7 H, RBC 4.29, Hgb 12.9, Hct 39.9, MCV 93.0, MCH 30.1, MCHC 32.3, RDW Std Deviation 48.1 H, RDW Coeff of Jaciel 14.2, Plt Count 342, MPV 9.3 10/15/20 05:42: Sodium 138, Potassium 2.9 L, Chloride 106, Carbon Dioxide 24.0, Anion Gap 8, BUN 12, Creatinine 0.42 L, Estim Creat Clear Calc 49.24, Est GFR (MDRD) Af Amer 188, Est GFR (MDRD) Non-Af 156, BUN/Creatinine Ratio 28.6 H, Glucose 100, Calcium 8.5 Current Medications Acetaminophen (Acetaminophen 325 Mg Tablet) 650 mg PO Q4H PRN PRN PRN Reason: P/F Last Admin: 10/14/20 05:23 Dose: 650 mg Documented by: Atorvastatin Calcium (Atorvastatin Calcium 10 Mg Tablet) 10 mg PO QODAY@2200 [facility] Last Admin: 10/14/20 21:00 Dose: 10 mg Documented by: Diltiazem HCl (Diltiazem Cd 120 Mg Capsule) 120 mg PO Q12 [facility] Last Admin: 10/15/20 10:23 Dose: 120 mg Documented by: Enoxaparin Sodium (Enoxaparin 100 Mg/Ml Syringe) 100 mg SC Q12@0600,1800 [facility] Last Admin: 10/15/20 05:06 Dose: 100 mg Documented by: Cefazolin Sodium 2 gm/ Sodium (Chloride) 110 mls @ 150 mls/hr IV Q8 [facility] Last Admin: 10/15/20 14:32 Dose: 150 mls/hr Documented by: Metoprolol Tartrate (Metoprolol Tartrate 5 Mg/5 Ml Vial) 5 mg IV Q6H PRN PRN PRN Reason: Tachycardia Last Admin: 10/14/20 02:25 Dose: 5 mg Documented by: Metoprolol Tartrate (Metoprolol Tartrate 50 Mg Tablet) 50 mg PO BID [facility] Last Admin: 10/15/20 10:22 Dose: 50 mg Documented by: Morphine Sulfate (Morphine 2 Mg/Ml Syringe) 2 - 4 mg IV Q2H PRN PRN PRN Reason: Pain Score 4-10 Nutritional Formula (Lactose Free) (Ensure Enlive 120 Ml Liquid) 120 ml PO 4X/DAY [facility] Last Admin: 10/15/20 14:32 Dose: 120 ml Documented by: Ondansetron HCl (Ondansetron 4 Mg/2 Ml Vial) 4 mg IV Q6H PRN PRN PRN Reason: NAUSEA Last Admin: 10/13/20 22:09 Dose: 4 mg Documented by: Oxycodone HCl (Oxycodone 5 Mg Tablet) 5 - 10 mg PO Q4H PRN PRN PRN Reason: Pain Score 4-10 Last Admin: 10/13/20 13:41 Dose: 5 mg Documented by: Pantoprazole Sodium (Pantoprazole Sodium 20 Mg Tablet) 20 mg PO DAILY [facility] Last Admin: 10/15/20 10:22 Dose: 20 mg Documented by: Sodium Chloride (0.9% Saline Lock 10 Ml Syringe) 10 - 40 ml IV UD PRN PRN Reason: SALINE FLUSH Last Admin: 10/14/20 05:33 Dose: 10 ml Documented by: Assessment/Plan Patient seen and examined independently. Data reviewed. I agree with the above note by the nurse practitioner. 1. Afib w RVR: still in afib, but rate controlled. [id number] = 3. Currently anticoagulated with enoxaparin. Can change to apixaban 5mg BID if no further surgical intervention needed. Follow up with cardiology. Continue dilt 120 BID, metop tart 50 BID. 2. Ventral hernia with strangulated small bowel s/p rsxn on 10/12. Inpatient E&M: [id number] [facility] L2
[2020-10-15 14:03] LABS: Pathologist Review Reviewed
[2020-10-15] MEDS: Potassium Chloride Oral Tablet 20 MEQ PO (14:16)
[2020-10-15] MEDS: Cefazolin 2 GM in 0.9% Normal Saline 100 ML IV ×2 (14:32→21:00)
[2020-10-16] VITALS (12 sets, daily range): BP systolic 114–129; BP diastolic 52–55; PULSE 79–105; RESP 16–18; TEMP 36.4–37.1; O2SAT 97–99
[2020-10-16 05:45] LABS: Hematocrit 35.9 % (37-47); Hemoglobin 11.7 g/dL (12.0-15.0); Mean Corp Hgb Conc 32.6 g/dL (32-36); Mean Corpuscular Hgb 30.2 pg (27.0-32.0); Mean Corpuscular Volume 92.5 fL (81-99); Mean Platelet Vol. 9.5 fl (6.2-12.0); Platelet Count 305 K/mm3 (150-450); RBC Distribution Width CV 14.2 % (11.6-14.6); RBC Distribution Width SD 48.1 fl (35.1-43.9); Red Blood Count 3.88 M/mm3 (4.2-5.4); White Blood Count 13.4 K/mm3 (4.4-11.0)
[2020-10-16] MEDS: Cefazolin 2 GM in 0.9% Normal Saline 100 ML IV ×3 (05:54→20:59)
[2020-10-16] MEDS: Enoxaparin 100 MG/ML Syringe SC ×2 (05:55→18:32)
[2020-10-16 06:05] LABS: Anion Gap 6 (5-15); BUN 11 mg/dL (7-18); BUN/Creat Ratio 23.3 RATIO (10-20); Calcium,Total 8.4 mg/dL (8.5-10.1); Chloride 109 mmol/L (98-107); Creatinine, Serum 0.47 mg/dL (0.55-1.02); EST Glomerular Filtration Rate 135 mL/min (>60); Est Glom Filt Rate - Afr Amer 164 mL/min (>60); Estimated Creatinine Clearance 49.24 ml/min; Glucose 120 mg/dL (74-106); Potassium 3.2 mmol/L (3.5-5.1); Sodium Level 141 mmol/L (136-145)
[2020-10-16] MEDS: Metoprolol Tartrate 50 MG Tablet PO ×2 (10:06→20:48)
[2020-10-16] MEDS: dilTIAZem CD 120 MG Capsule PO ×2 (10:06→20:48)
[2020-10-16] MEDS: Pantoprazole Sodium 20 MG Tablet PO (10:07)
--- NOTE | 2020-10-16 10:58 | PCM.PROGNOTE ---
<Clara Ko SNAKER - Last Filed: 10/16/20 11:01> Patient Problems: Active and Suspected Problems (Last Reviewed 10/29/17 @ 09:58 by Earlene Reddy) Strangulated ventral hernia (Acute) Subjective: Patient seen and examined. No acute events overnight. Patient reports intermittent ongoing diarrhea however no episodes so far today. Diet advanced to transitional diet per general surgery. Patient denies significant abdominal pain. Heart rate controlled. - Physical Exam Vitals/I&O's: Vital Signs Temp Pulse Resp BP Pulse Ox 98.2 F 105 H 18 117/52 L 97 10/16/20 08:18 10/16/20 10:06 10/16/20 08:18 10/16/20 08:18 10/16/20 08:18 Oxygen Flow Rate (L/min) 1 Oxygen Delivery Method Room Air Weight: 218 lb 4.122 oz Body Mass Index (BMI) 32.2 Intake and Output for Last 24 Hours 10/14/20 10/15/20 10/16/20 23:59 23:59 23:59 Intake Total 1424.09 / 1424.09 1760 / 1760 510 / 510 Balance 1424.09 / 1424.09 1760 / 1760 510 / 510 General: Alert, Oriented x3, Cooperative HEENT: Atraumatic, PERRLA, EOMI, Normocephalic Neck: Supple, No JVD, Negative Carotid Bruits Lungs: Clear to auscultation, Normal air movement Cardiovascular: Regular rate, No murmurs Abdomen: Bowel Sounds Present, Soft, Non Tender, Non-Distended, - - Postop dressings intact Extremities: No clubbing, No cyanosis, No edema, Capillary Refill Less than 3 Seconds Skin: No rashes, No breakdown Musculoskeletal: No Tenderness to Palpation of Joints or Extremities Neurological: Cranial nerves II-XII grossly intact, Neuro grossly intact Psych/Mental Status: Normal Affect, Appropriate Microbiology Past 72 Hours 10/14/20 15:56 Urine, Clean Catch Urine Culture - Final Mixed Gram Pos & Gram Neg Org 10/14/20 15:55 Stool Enteric Bacteriology - Final 10/14/20 15:55 Stool C. difficile DNA Amplification - Final Laboratory Results 10/13/20 06:06: Diff Path Review Reviewed 10/16/20 05:20: WBC 13.4 H, RBC 3.88 L, Hgb 11.7 L, Hct 35.9 L, MCV 92.5, MCH 30.2, MCHC 32.6, RDW Std Deviation 48.1 H, RDW Coeff of Jaciel 14.2, Plt Count 305, MPV 9.5 10/16/20 05:20: Sodium 141, Potassium 3.2 L, Chloride 109 H, Carbon Dioxide 26.0, Anion Gap 6, BUN 11, Creatinine 0.47 L, Estim Creat Clear Calc 49.24, Est GFR (MDRD) Af Amer 164, Est GFR (MDRD) Non-Af 135, BUN/Creatinine Ratio 23.3 H, Glucose 120 H, Calcium 8.4 L Current Medications Acetaminophen (Acetaminophen 325 Mg Tablet) 650 mg PO Q4H PRN PRN PRN Reason: P/F Last Admin: 10/14/20 05:23 Dose: 650 mg Documented by: Atorvastatin Calcium (Atorvastatin Calcium 10 Mg Tablet) 10 mg PO QODAY@2200 [facility] Last Admin: 10/14/20 21:00 Dose: 10 mg Documented by: Diltiazem HCl (Diltiazem Cd 120 Mg Capsule) 120 mg PO Q12 [facility] Last Admin: 10/16/20 10:06 Dose: 120 mg Documented by: Enoxaparin Sodium (Enoxaparin 100 Mg/Ml Syringe) 100 mg SC Q12@0600,1800 [facility] Last Admin: 10/16/20 05:55 Dose: 100 mg Documented by: Cefazolin Sodium 2 gm/ Sodium (Chloride) 110 mls @ 150 mls/hr IV Q8 [facility] Last Infusion: 10/16/20 06:38 Dose: Infused Documented by: Metoprolol Tartrate (Metoprolol Tartrate 5 Mg/5 Ml Vial) 5 mg IV Q6H PRN PRN PRN Reason: Tachycardia Last Admin: 10/14/20 02:25 Dose: 5 mg Documented by: Metoprolol Tartrate (Metoprolol Tartrate 50 Mg Tablet) 50 mg PO BID [facility] Last Admin: 10/16/20 10:06 Dose: 50 mg Documented by: Morphine Sulfate (Morphine 2 Mg/Ml Syringe) 2 - 4 mg IV Q2H PRN PRN PRN Reason: Pain Score 4-10 Nutritional Formula (Lactose Free) (Ensure Enlive 120 Ml Liquid) 120 ml PO 4X/DAY [facility] Last Admin: 10/16/20 10:06 Dose: 120 ml Documented by: Ondansetron HCl (Ondansetron 4 Mg/2 Ml Vial) 4 mg IV Q6H PRN PRN PRN Reason: NAUSEA Last Admin: 10/13/20 22:09 Dose: 4 mg Documented by: Oxycodone HCl (Oxycodone 5 Mg Tablet) 5 - 10 mg PO Q4H PRN PRN PRN Reason: Pain Score 4-10 Last Admin: 10/13/20 13:41 Dose: 5 mg Documented by: Pantoprazole Sodium (Pantoprazole Sodium 20 Mg Tablet) 20 mg PO DAILY [facility] Last Admin: 10/16/20 10:07 Dose: 20 mg Documented by: Sodium Chloride (0.9% Saline Lock 10 Ml Syringe) 10 - 40 ml IV UD PRN PRN Reason: SALINE FLUSH Last Admin: 10/14/20 05:33 Dose: 10 ml Documented by: Medical Necessity - Tobacco Use Smoking Status: Never smoker Tobacco Use: Non-smoker Assessment/Plan All Active Problems (Last Reviewed 10/29/17 @ 09:58 by Earlene Reddy) Strangulated ventral hernia (Acute) Calculus of gallbladder with chronic cholecystitis without obstruction (Acute) S/P colonoscopy (Acute) Status post partial hysterectomy (Acute) Status post laser ablation of incompetent vein (Acute) S/P nasal polypectomy (Acute) Diarrhea (Acute) Vitamin D deficiency (Acute) Hyperlipemia (Acute) Carpal tunnel syndrome, bilateral (Acute) Mitral stenosis with insufficiency (Acute) Mitral valve insufficiency (Acute) Bilateral carotid artery stenosis (Acute) Asthma (Acute) Fatty liver (Acute) Sciatica (Acute) Osteopenia (Acute) Paresthesia (Acute) 1. New onset atrial fibrillation with RVR-continue oral Cardizem CD 120 mg p.o. every 12. Continue metoprolol 50 mg twice daily. On therapeutic Lovenox. TSH, mag normal. Echocardiogram demonstrates an EF of 55%. Rate currently controlled. Appears to be in sinus rhythm this morning. Plan for transition to novel anticoagulant at discharge. 2. Lactic acidosis, leukocytosis-unclear etiology, possibly reactive. Patient states her white count has been elevated chronically as an outpatient. She denies urinary symptoms. Lactic acidosis resolved. Fever improved. Initiated on IV cefazolin due to purulent material on postop dressing. Blood and urine cultures unremarkable. Chest x-ray unremarkable. Stool studies negative. 3. Ventral hernia with strangulated small bowel status post resection of small bowel and primary anastomosis with repair of ventral hernia 10/12/[address] Moe- management per surgery. Patient reports ongoing diarrhea. Stool studies negative. Diet advanced per surgery. 4. Hyperlipidemia-continue statin. DVT prophylaxis- SCDs, Lovenox Discharge planning: Home with home health when medically stable This patient was seen by MANGO Haddad under the supervision of Dr. Zhu. <Jose Juan Zhu - Last Filed: 10/16/20 15:29> - Physical Exam Vitals/I&O's: Vital Signs Temp Pulse Resp BP Pulse Ox 36.4 C L 81 18 114/54 L 98 10/16/20 14:00 10/16/20 14:00 10/16/20 14:00 10/16/20 14:00 10/16/20 14:00 Oxygen Flow Rate (L/min) 1 Oxygen Delivery Method Room Air Weight: 99 kg Body Mass Index (BMI) 32.2 Intake and Output for Last 24 Hours 10/14/20 10/15/20 10/16/20 23:59 23:59 23:59 Intake Total 1424.09 / 1424.09 1760 / 1760 760 / 760 Balance 1424.09 / 1424.09 1760 / 1760 760 / 760 General: Alert, Cooperative HEENT: Atraumatic, Normocephalic Lungs: Clear to auscultation, Normal air movement Cardiovascular: Regular rate, Regular Rhythm, Normal S1, Normal S2, No murmurs Abdomen: Bowel Sounds Present, Soft, Non Tender, Distended, - Microbiology Past 72 Hours 10/14/20 11:11 Blood Culture (Wb) - Left Hand Blood Culture - Preliminary No growth in 48 hours. 10/14/20 10:55 Blood Culture (Wb) - Right Hand Blood Culture - Preliminary No growth in 48 hours. 10/14/20 15:56 Urine, Clean Catch Urine Culture - Final Mixed Gram Pos & Gram Neg Org 10/14/20 15:55 Stool Enteric Bacteriology - Final 10/14/20 15:55 Stool C. difficile DNA Amplification - Final Laboratory Results 10/16/20 05:20: WBC 13.4 H, RBC 3.88 L, Hgb 11.7 L, Hct 35.9 L, MCV 92.5, MCH 30.2, MCHC 32.6, RDW Std Deviation 48.1 H, RDW Coeff of Jaciel 14.2, Plt Count 305, MPV 9.5 10/16/20 05:20: Sodium 141, Potassium 3.2 L, Chloride 109 H, Carbon Dioxide 26.0, Anion Gap 6, BUN 11, Creatinine 0.47 L, Estim Creat Clear Calc 49.24, Est GFR (MDRD) Af Amer 164, Est GFR (MDRD) Non-Af 135, BUN/Creatinine Ratio 23.3 H, Glucose 120 H, Calcium 8.4 L Current Medications Acetaminophen (Acetaminophen 325 Mg Tablet) 650 mg PO Q4H PRN PRN PRN Reason: P/F Last Admin: 10/14/20 05:23 Dose: 650 mg Documented by: Atorvastatin Calcium (Atorvastatin Calcium 10 Mg Tablet) 10 mg PO QODAY@2200 [facility] Last Admin: 10/14/20 21:00 Dose: 10 mg Documented by: Diltiazem HCl (Diltiazem Cd 120 Mg Capsule) 120 mg PO Q12 [facility] Last Admin: 10/16/20 10:06 Dose: 120 mg Documented by: Enoxaparin Sodium (Enoxaparin 100 Mg/Ml Syringe) 100 mg SC Q12@0600,1800 [facility] Last Admin: 10/16/20 05:55 Dose: 100 mg Documented by: Cefazolin Sodium 2 gm/ Sodium (Chloride) 110 mls @ 150 mls/hr IV Q8 [facility] Last Admin: 10/16/20 14:38 Dose: 150 mls/hr Documented by: Metoprolol Tartrate (Metoprolol Tartrate 5 Mg/5 Ml Vial) 5 mg IV Q6H PRN PRN PRN Reason: Tachycardia Last Admin: 10/14/20 02:25 Dose: 5 mg Documented by: Metoprolol Tartrate (Metoprolol Tartrate 50 Mg Tablet) 50 mg PO BID [facility] Last Admin: 10/16/20 10:06 Dose: 50 mg Documented by: Morphine Sulfate (Morphine 2 Mg/Ml Syringe) 2 - 4 mg IV Q2H PRN PRN PRN Reason: Pain Score 4-10 Nutritional Formula (Lactose Free) (Ensure Enlive 120 Ml Liquid) 120 ml PO 4X/DAY [facility] Last Admin: 10/16/20 14:39 Dose: 120 ml Documented by: Ondansetron HCl (Ondansetron 4 Mg/2 Ml Vial) 4 mg IV Q6H PRN PRN PRN Reason: NAUSEA Last Admin: 10/13/20 22:09 Dose: 4 mg Documented by: Oxycodone HCl (Oxycodone 5 Mg Tablet) 5 - 10 mg PO Q4H PRN PRN PRN Reason: Pain Score 4-10 Last Admin: 10/13/20 13:41 Dose: 5 mg Documented by: Pantoprazole Sodium (Pantoprazole Sodium 20 Mg Tablet) 20 mg PO DAILY [facility] Last Admin: 10/16/20 10:07 Dose: 20 mg Documented by: Sodium Chloride (0.9% Saline Lock 10 Ml Syringe) 10 - 40 ml IV UD PRN PRN Reason: SALINE FLUSH Last Admin: 10/16/20 14:40 Dose: 20 ml Documented by: Assessment/Plan Patient seen and examined independently. Data reviewed. I agree with the above note by the nurse practitioner. 1. Afib w RVR: still in afib, but rate controlled. [id number] = 3. Currently anticoagulated with enoxaparin. Can change to apixaban 5mg BID if no further surgical intervention needed. Follow up with cardiology. Continue dilt 120 BID, metop tart 50 BID. 2. Ventral hernia with strangulated small bowel s/p rsxn on 10/12. Medically stable for discharge. Inpatient E&M: [id number] [facility] Hosp L2
[2020-10-16] MEDS: Potassium Chloride Oral Tablet 20 MEQ 40 MEQ PO (12:46)
[2020-10-16] MEDS: 0.9% Saline Lock 10 ML Syringe IV (14:40)
--- NOTE | 2020-10-16 14:44 | CASEMGMT ---
Addendum entered by Palmira Marshall 10/16/20 15:21: Per Roberta in [facility] retail pharmacy, pt's co-pay for med is $104 but this RN CM tubed a 30 day free trial card to retail pharmacy at this time and it is to be applied. Roberta is aware that pt to be discharged early in the am and she states they will bring meds up for pt at this time. Roxana DAMON CM Original Note: Per Dr. Moe, pt to be discharged at 0800 d/t ride available at that time. Message left with Chelsey at [facility] to notify at this time and Eliquis to be sent today so this RN CM can check coverage and co-pay. Pt to be provided with Eliquis 30 day free trial card also at this time. CM to follow. Roxana DAMON CM
--- NOTE | 2020-10-16 18:44 | NURSING ---
reviewed and agree with documentation by JULIA Davis
[2020-10-16] MEDS: Atorvastatin Calcium 10 MG Tablet PO (20:48)
[2020-10-17 02:30] VITALS: BP 111/65; PULSE 92; RESP 16; TEMP 37.1; O2SAT 95
[2020-10-17] MEDS: Mag Hydrox/Al Hydrox/Simeth 30 ML UDC PO (03:43)
[2020-10-17 05:58] LABS: Hematocrit 35.9 % (37-47); Hemoglobin 11.6 g/dL (12.0-15.0); Mean Corp Hgb Conc 32.3 g/dL (32-36); Mean Corpuscular Hgb 29.6 pg (27.0-32.0); Mean Corpuscular Volume 91.6 fL (81-99); Mean Platelet Vol. 9.2 fl (6.2-12.0); Platelet Count 401 K/mm3 (150-450); RBC Distribution Width CV 14.3 % (11.6-14.6); RBC Distribution Width SD 47.8 fl (35.1-43.9); Red Blood Count 3.92 M/mm3 (4.2-5.4); White Blood Count 15.3 K/mm3 (4.4-11.0)
[2020-10-17 06:28] LABS: Anion Gap 6 (5-15); BUN 10 mg/dL (7-18); BUN/Creat Ratio 23.3 RATIO (10-20); Calcium,Total 8.4 mg/dL (8.5-10.1); Chloride 107 mmol/L (98-107); Creatinine, Serum 0.43 mg/dL (0.55-1.02); EST Glomerular Filtration Rate 151 mL/min (>60); Est Glom Filt Rate - Afr Amer 183 mL/min (>60); Estimated Creatinine Clearance 49.24 ml/min; Glucose 119 mg/dL (74-106); Potassium 3.2 mmol/L (3.5-5.1); Sodium Level 141 mmol/L (136-145)
[2020-10-17] MEDS: Enoxaparin 100 MG/ML Syringe SC (06:43)
[2020-10-17] MEDS: Cefazolin 2 GM in 0.9% Normal Saline 100 ML IV (06:43)
--- NOTE | 2020-10-17 07:40 | DCINST_ITS ---
Discharge Diet: Light diet - advance as tolerated Discharge Activity: May Not Drive - No driving for 1 week or while taking narcotic pain meds. May shower in (days): 1 Lifting Restrictions: 20 lbs for 6 weeks Call your doctor if your incision/area has: Continuous Slow Oozing, Sudden Increased Bleeding, Increased Pain/ Swelling, Increased Redness, Foul Smelling Discharge, Swelling at the incision site Call your doctor if you observe: Fever of 101 or Higher Suture Line Care: Avoid Pulling/Pushing, Avoid Pinching/Bending Change Dressing in (Days):: 1 - Leave steri-strips in place for 1 week. Allergies/Adverse Reactions: Allergies penicillin G Allergy (Unknown, Verified 10/12/20 05:06) Unknown Medications to take at Discharge calcium carbonate 200 mg calcium (500 mg) chewable tablet 200 mg PO DAILY tab 10/09/17 cholecalciferol (vitamin D3) 50 mcg (2,000 unit) capsule 6,000 unit PO ONCE cap 10/09/17 rosuvastatin 5 mg tablet 5 mg PO QODAY 10/09/17 Oxycodone [Oxyir] 5 - 10 mg PO Q4H PRN PRN 5 Days #30 tab 10/12/20 Apixaban [Eliquis] 5 mg PO BID #60 tab 10/16/20 Diltiazem CD [Cardizem CD] 120 mg PO Q12 #60 cap 10/16/20 Metoprolol Tartrate [Lopressor (beta moise)] 50 mg PO BID #60 tab 10/16/20 Pantoprazole Sodium [Protonix] 20 mg PO DAILY #30 tab 10/16/20 Clindamycin [Cleocin] 300 mg PO TID 5 Days #15 cap 10/17/20 The following prescriptions were given: Diltiazem CD [Cardizem CD] 120 mg PO Q12 #60 cap Transmission Status: Received by [facility] Clindamycin [Cleocin] 300 mg PO TID 5 Days #15 cap Transmission Status: Pending to [facility] Apixaban [Eliquis] 5 mg PO BID #60 tab Transmission Status: Received by [facility] Metoprolol Tartrate [Lopressor (beta moise)] 50 mg PO BID #60 tab Transmission Status: Received by [facility] Oxycodone [Oxyir] 5 - 10 mg PO Q4H PRN PRN 5 Days #30 tab PRN Reason: Pain Score 4-10 Transmission Status: Received by [facility] Pantoprazole Sodium [Protonix] 20 mg PO DAILY #30 tab Transmission Status: Received by [facility] Primary Care Physician: Gini Ojeda DO [Primary Care Provider] - Test Results: Test results from this visit will be discussed in further detail at your follow- up appointment, if applicable. Please Follow Up With: Todd Moe MD When: Please call to schedule 1 week follow up appointment. [phone] Please Follow Up With: Ari Roberts MD When: Call for appt [phone]
--- NOTE | 2020-10-17 07:43 | PCM.PN.SRG ---
Patient Problems: Active and Suspected Problems (Last Reviewed 10/29/17 @ 09:58 by Earlene Reddy) Strangulated ventral hernia (Acute) Subjective: Patient reports he had a normal bowel movement overnight and she had no nausea or vomiting with her meal. She is having no abdominal pain. - Physical Exam Vitals/I&O's: Vital Signs Temp Pulse Resp BP Pulse Ox 98.8 F 92 16 111/65 95 10/17/20 02:30 10/17/20 02:30 10/17/20 02:30 10/17/20 02:30 10/17/20 02:30 Oxygen Flow Rate (L/min) 1 Oxygen Delivery Method Room Air Weight: 218 lb 4.122 oz Body Mass Index (BMI) 32.2 Intake and Output for Last 24 Hours 10/15/20 10/16/20 10/17/20 23:59 23:59 23:59 Intake Total 1760 / 1760 1880 / 2240 600 / 600 Balance 1760 / 1760 1880 / 2240 600 / 600 General: Alert, Oriented x3 Lungs: Normal air movement, No rhonchi Cardiovascular: Regular rate, Regular Rhythm Abdomen: Soft, Non Tender, Non-Distended Microbiology Past 72 Hours 10/14/20 11:11 Blood Culture (Wb) - Left Hand Blood Culture - Preliminary No growth in 48 hours. 10/14/20 10:55 Blood Culture (Wb) - Right Hand Blood Culture - Preliminary No growth in 48 hours. 10/14/20 15:56 Urine, Clean Catch Urine Culture - Final Mixed Gram Pos & Gram Neg Org 10/14/20 15:55 Stool Enteric Bacteriology - Final 10/14/20 15:55 Stool C. difficile DNA Amplification - Final Laboratory Results 10/17/20 05:15: WBC 15.3 H, RBC 3.92 L, Hgb 11.6 L, Hct 35.9 L, MCV 91.6, MCH 29.6, MCHC 32.3, RDW Std Deviation 47.8 H, RDW Coeff of Jaciel 14.3, Plt Count 401, MPV 9.2 10/17/20 05:15: Sodium 141, Potassium 3.2 L, Chloride 107, Carbon Dioxide 28.0, Anion Gap 6, BUN 10, Creatinine 0.43 L, Estim Creat Clear Calc 49.24, Est GFR (MDRD) Af Amer 183, Est GFR (MDRD) Non-Af 151, BUN/Creatinine Ratio 23.3 H, Glucose 119 H, Calcium 8.4 L Current Medications Acetaminophen (Acetaminophen 325 Mg Tablet) 650 mg PO Q4H PRN PRN PRN Reason: P/F Last Admin: 10/14/20 05:23 Dose: 650 mg Documented by: Al Hydroxide/Mg Hydroxide (Mag Hydrox/Al Hydrox/Simeth 30 Ml Udc) 30 ml PO Q4H PRN PRN PRN Reason: DYSPEPSIA Last Admin: 10/17/20 03:43 Dose: 30 ml Documented by: Atorvastatin Calcium (Atorvastatin Calcium 10 Mg Tablet) 10 mg PO QODAY@2200 [facility] Last Admin: 10/16/20 20:48 Dose: 10 mg Documented by: Clindamycin HCl (Clindamycin Hcl 150 Mg Capsule) 300 mg PO TID [facility] Diltiazem HCl (Diltiazem Cd 120 Mg Capsule) 120 mg PO Q12 [facility] Last Admin: 10/16/20 20:48 Dose: 120 mg Documented by: Enoxaparin Sodium (Enoxaparin 100 Mg/Ml Syringe) 100 mg SC Q12@0600,1800 [facility] Last Admin: 10/17/20 06:43 Dose: 100 mg Documented by: Metoprolol Tartrate (Metoprolol Tartrate 5 Mg/5 Ml Vial) 5 mg IV Q6H PRN PRN PRN Reason: Tachycardia Last Admin: 10/14/20 02:25 Dose: 5 mg Documented by: Metoprolol Tartrate (Metoprolol Tartrate 50 Mg Tablet) 50 mg PO BID [facility] Last Admin: 10/16/20 20:48 Dose: 50 mg Documented by: Morphine Sulfate (Morphine 2 Mg/Ml Syringe) 2 - 4 mg IV Q2H PRN PRN PRN Reason: Pain Score 4-10 Nutritional Formula (Lactose Free) (Ensure Enlive 120 Ml Liquid) 120 ml PO 4X/DAY [facility] Last Admin: 10/16/20 20:48 Dose: 120 ml Documented by: Ondansetron HCl (Ondansetron 4 Mg/2 Ml Vial) 4 mg IV Q6H PRN PRN PRN Reason: NAUSEA Last Admin: 10/13/20 22:09 Dose: 4 mg Documented by: Oxycodone HCl (Oxycodone 5 Mg Tablet) 5 - 10 mg PO Q4H PRN PRN PRN Reason: Pain Score 4-10 Last Admin: 10/13/20 13:41 Dose: 5 mg Documented by: Pantoprazole Sodium (Pantoprazole Sodium 20 Mg Tablet) 20 mg PO DAILY RYAN Last Admin: 10/16/20 10:07 Dose: 20 mg Documented by: Sodium Chloride (0.9% Saline Lock 10 Ml Syringe) 10 - 40 ml IV UD PRN PRN Reason: SALINE FLUSH Last Admin: 10/16/20 14:40 Dose: 20 ml Documented by: Medical Necessity - Tobacco Use Smoking Status: Never smoker Tobacco Use: Non-smoker Assessment/Plan All Active Problems (Last Reviewed 10/29/17 @ 09:58 by Earlene Reddy) Strangulated ventral hernia (Acute) Calculus of gallbladder with chronic cholecystitis without obstruction (Acute) S/P colonoscopy (Acute) Status post partial hysterectomy (Acute) Status post laser ablation of incompetent vein (Acute) S/P nasal polypectomy (Acute) Diarrhea (Acute) Vitamin D deficiency (Acute) Hyperlipemia (Acute) Carpal tunnel syndrome, bilateral (Acute) Mitral stenosis with insufficiency (Acute) Mitral valve insufficiency (Acute) Bilateral carotid artery stenosis (Acute) Asthma (Acute) Fatty liver (Acute) Sciatica (Acute) Osteopenia (Acute) Paresthesia (Acute) 75-year-old female status post ventral hernia repair and small bowel resection 1. Overall clinically the patient seems to be doing well. Her white count did go up again today but she is having no erythema or purulent drainage from the incision. She had a UA checked and there it was no sign of urinary tract infection. She is not having any cough or shortness of breath. She is not having any fevers or chills. She denies any abdominal pain. She is tolerating a diet and having normal bowel movements with no diarrhea. I am unsure as to why her white count is going up and I will see her back in 1 week and recheck a white count. If there is any deterioration of her condition she was instructed to call me immediately. Todd Moe MD Pager: [facility] [address] [place] [address], [address] [place] [address] Office:
[2020-10-17 07:45] VITALS: O2SAT 94
[2020-10-17 07:50] VITALS: PULSE 109
[2020-10-17] MEDS: Clindamycin HCl 150 MG Capsule 300 MG PO (08:40)
[2020-10-17] MEDS: Potassium Chloride Oral Tablet 20 MEQ 40 MEQ PO (08:40)
[2020-10-17] MEDS: dilTIAZem CD 120 MG Capsule PO (08:41)
[2020-10-17] MEDS: Pantoprazole Sodium 20 MG Tablet PO (08:41)
[2020-10-17 08:42] VITALS: PULSE 103
[2020-10-17] MEDS: Metoprolol Tartrate 50 MG Tablet PO (08:42)
[2020-10-17 08:45] VITALS: BP 117/69; PULSE 97; RESP 16; TEMP 36.9; O2SAT 97
--- NOTE | 2020-10-17 10:40 | CASEMGMT ---
Call from Mona at [facility] and she is aware that pt discharging today and states they will do start of care tomorrow. Roxana DAMON CM
--- NOTE | 2020-10-17 11:21 | PHA.DC.MC ---
Pharmacy Service has performed discharge medication reconciliation and counseling for this patient. 1. APIXABAN 5MG PO BID 2. CLINDAMYCIN 300MG PO TID X 5 DAYS 3. DILTIAZEM CD 120MG PO BID 4. METOPROLOL TARTRATE 50MG PO BID 5. OXYCODONE 5-10MG PO Q4H PRN PAIN 4-10 6. PANTOPRAZOLE 20MG PO DAILY The patient's discharge medication list was reviewed for discrepancies and discrepancies were resolved. Home Medications calcium carbonate 200 mg calcium (500 mg) chewable tablet 200 mg PO DAILY tab 10/09/17 cholecalciferol (vitamin D3) 50 mcg (2,000 unit) capsule 6,000 unit PO ONCE cap 10/09/17 rosuvastatin 5 mg tablet 5 mg PO QODAY 10/09/17 Oxycodone [Oxyir] 5 - 10 mg PO Q4H PRN PRN 5 Days #30 tab 10/12/20 Apixaban [Eliquis] 5 mg PO BID #60 tab 10/16/20 Diltiazem CD [Cardizem CD] 120 mg PO Q12 #60 cap 10/16/20 Metoprolol Tartrate [Lopressor (beta moise)] 50 mg PO BID #60 tab 10/16/20 Pantoprazole Sodium [Protonix] 20 mg PO DAILY #30 tab 10/16/20 Clindamycin [Cleocin] 300 mg PO TID 5 Days #15 cap 10/17/20 The patient was counseled on the following discharge medications and changes in medications for homegoing were reviewed. The Reason for Use, instructions for use, and potential side effects were reviewed for all new medications. The patient's questions regarding all of their medications were answered. The patient was able to verbally demonstrate an understanding of their discharge medications.
--- NOTE | 2020-10-17 15:17 | PN_ITS ---
Patient Problems: Active and Suspected Problems (Last Reviewed 10/29/17 @ 09:58 by Earlene Reddy) Strangulated ventral hernia (Acute) Subjective: Had BM today. feeling well. Being discharged today. Vitals/I&O's: Vital Signs Temp Pulse Resp BP Pulse Ox 36.9 C 97 16 117/69 97 10/17/20 08:45 10/17/20 08:45 10/17/20 08:45 10/17/20 08:45 10/17/20 08:45 Oxygen Flow Rate (L/min) 1 Oxygen Delivery Method Room Air Weight: 99 kg Body Mass Index (BMI) 32.2 Intake and Output for Last 24 Hours 10/15/20 10/16/20 10/17/20 23:59 23:59 23:59 Intake Total 1760 / 1760 1880 / 2240 710 / 710 Balance 1760 / 1760 1880 / 2240 710 / 710 General: Alert, No apparent distress, - - up in chair. HEENT: Atraumatic Psych/Mental Status: Normal Affect, Appropriate Microbiology Past 72 Hours 10/14/20 11:11 Blood Culture (Wb) - Left Hand Blood Culture - Preliminary No growth in 48 hours. 10/14/20 10:55 Blood Culture (Wb) - Right Hand Blood Culture - Preliminary No growth in 48 hours. 10/14/20 15:56 Urine, Clean Catch Urine Culture - Final Mixed Gram Pos & Gram Neg Org 10/14/20 15:55 Stool Enteric Bacteriology - Final 10/14/20 15:55 Stool C. difficile DNA Amplification - Final Laboratory Results 10/17/20 05:15: WBC 15.3 H, RBC 3.92 L, Hgb 11.6 L, Hct 35.9 L, MCV 91.6, MCH 29.6, MCHC 32.3, RDW Std Deviation 47.8 H, RDW Coeff of Jaciel 14.3, Plt Count 401, MPV 9.2 10/17/20 05:15: Sodium 141, Potassium 3.2 L, Chloride 107, Carbon Dioxide 28.0, Anion Gap 6, BUN 10, Creatinine 0.43 L, Estim Creat Clear Calc 49.24, Est GFR (MDRD) Af Amer 183, Est GFR (MDRD) Non-Af 151, BUN/Creatinine Ratio 23.3 H, Glucose 119 H, Calcium 8.4 L Medical Necessity - Tobacco Use Smoking Status: Never smoker Tobacco Use: Non-smoker Assessment/Plan All Active Problems (Last Reviewed 10/29/17 @ 09:58 by Earlene Reddy) Strangulated ventral hernia (Acute) Calculus of gallbladder with chronic cholecystitis without obstruction (Acute) S/P colonoscopy (Acute) Status post partial hysterectomy (Acute) Status post laser ablation of incompetent vein (Acute) S/P nasal polypectomy (Acute) Diarrhea (Acute) Vitamin D deficiency (Acute) Hyperlipemia (Acute) Carpal tunnel syndrome, bilateral (Acute) Mitral stenosis with insufficiency (Acute) Mitral valve insufficiency (Acute) Bilateral carotid artery stenosis (Acute) Asthma (Acute) Fatty liver (Acute) Sciatica (Acute) Osteopenia (Acute) Paresthesia (Acute) 1. Afib w RVR: still in afib, but rate controlled. [id number] = 3. Currently anticoagulated with enoxaparin. Can change to apixaban 5mg BID if no further surgical intervention needed. Follow up with cardiology. Continue dilt 120 BID, metop tart 50 BID. 2. Ventral hernia with strangulated small bowel s/p rsxn on 10/12. Medically stable for discharge. Inpatient E&M: [id number] [facility] L[facility]
--- NOTE | 2020-10-18 16:17 | CASEMGMT ---
MARISOL HURD Discharge Follow-Up Phone Call. [place]: 12 Strata: 3 Discharge Date: 10/17/20 Adm Dx: SBO and ventral hernia Call to pt to inquire about how she has been doing since being discharged from the hospital. Pt states, I've been doing pretty well. She states she got all of her prescriptions from [facility] retail pharmacy the day prior to discharge, but then Dr Moe added on an antibiotic and her daughter came back in yesterday to pick that one up as well. She denies having any questions about the medications and states she is taking them as prescribed. She is aware of the appt scheduled with Dr Moe on the and she has made an appt with her PCP on the as well ( @ 1130). She also made a f/u appt with Dr Roberts for 10/31 @ 1300. [facility] was out to see her this morning and she states she was very pleased with the nurse. She denies having any questions or concerns. MARISOL HURD thanked pt for taking the time to talk/answer questions. Pt states she was very pleased with the staff @ [facility], stating, You have some really ebenezer aides and the nurses were very nice. MARISOL HURD thanked pt for the positive feedback. Pina DUNN RN, CM
== END 2020-10-17 11:49 | disposition home health service (06) | DRG 330 ==
LOC: ED 10-12 00:39 → SDC 10-12 01:36 → PCU 10-12 02:01 → SDC 10-12 03:47 → PCU 10-12 03:47
PROVIDERS: Internal Medicine; Nurse Practitioner Family; Student in an Organized Health Care Education/Training Program; Admitting Provider Surgery; Emergency Provider Student in an Organized Health Care Education/Training Program; PCP Internal Medicine; Referring Provider Surgery
PROC: 0DB80ZZ Excision of Small Intestine, Open Approach (ICD-10-PCS; CPT 49000; principal; 2020-10-12 01:35)
PROC: 0DB80ZZ Excision of Small Intestine, Open Approach (ICD-10-PCS; 2020-10-12 01:35)
DX: K43.6 Other and unspecified ventral hernia with obstruction, without gangrene (principal); E87.2 Acidosis; C56.9 Malignant neoplasm of unspecified ovary; C79.9 Secondary malignant neoplasm of unspecified site; I10 Essential (primary) hypertension; E78.5 Hyperlipidemia, unspecified; J44.9 Chronic obstructive pulmonary disease, unspecified; E55.9 Vitamin D deficiency, unspecified; K76.0 Fatty (change of) liver, not elsewhere classified; R16.0 Hepatomegaly, not elsewhere classified; I48.0 Paroxysmal atrial fibrillation; E66.9 Obesity, unspecified; Z68.32 Body mass index [BMI] 32.0-32.9, adult; E87.6 Hypokalemia
CPT/HCPCS: 36415; 71046; 74177; 80048; 80053; 81001; 82962; 83605; 83735; 84443; 84484; 85025; 85027; 87040; 87086; 87088; 87426; 87493; 87506; 88302; 88305; 88341; 88342; 93005; 93306; 97110; 97116; 97162; 97166; 97530; 97535; 97802; 97803; 99251; 99281; 99283; J7030; J7040; J7050; J7120; Q9957; Q9967; A4216; C8929; G0463; J0330; J2405

== ENCOUNTER 2020-10-25 15:02 | Emergency (ER) | payer MEDICARE, SELFPAY ==
[2020-10-12 04:50] VITALS: BMI 32.2
[2020-10-25 15:04] VITALS: BP 126/77; PULSE 74; RESP 18; TEMP 36.2; O2SAT 98; BMI 31.6
--- NOTE | 2020-10-25 15:41 | ED.VIS.GEN ---
History of Present Illness Chief Complaint: Abn Labs Informant: Patient Narrative: She presents for the evaluation of surgical wound and diarrhea. Patient underwent exploratory laparotomy with resection of small bowel and primary anastomosis with repair of ventral hernia on [address] Moe. She tells me that since hospitalization she has had no diarrhea. She has been on clindamycin which ended on Thursday. She followed up with primary care yesterday and had blood work done that showed a mild leukocytosis but the patient does not know what the value was. Stool studies were ordered to evaluate the diarrhea which she states is 8-10 episodes per day brown and semiformed at times. Home health evaluated the patient today noted some erythema and hypoactive bowel sounds and discussed it with the nurse from her primary care physician's office and they recommend the patient come to emergency. No fevers. She has been eating well. No vomiting. Past Medical History - Allergies and Home Meds Allergies/Adverse Reactions: Allergies penicillin G Allergy (Unknown, Verified 10/25/20 15:05) Unknown Primary Care Physician: Gini Ojeda DO [Primary Care Provider] - Surgical History: cholecystectomy, - - Ventral hernia repair Smoking Status: Never smoker Drugs: None Review of Systems General: Denies: Chills, Fever, Sweats Eyes: Denies: Visual changes - bilaterally, Diplopia ENT: Denies: Rhinorrhea, Sore throat Cardiovascular: Denies: Chest pain, Palpitations Respiratory: Denies: Dyspnea, Cough, Dyspnea on exertion Gastrointestinal: Reports: Diarrhea. Denies: Abdominal pain, Nausea, Vomiting, Melena, Hematochezia Genitourinary: Denies: Dysuria, Hematuria, Frequency Musculoskeletal: Denies: Back pain, Extremity Pain Skin: Reports: Wounds. Denies: Rash Neurological: Denies: Headache, Weakness, Numbness Physical Exam Vital Signs/Narrative: Vital Signs Temp Pulse Resp BP Pulse Ox 10/25/20 15:04 97.2 F L 74 18 126/77 H 98 Inital Vital Signs reviewed: Yes General: Well nourished, Well developed, Obese, No Acute Distress Head: Normocephalic, Atraumatic Eyes: Perrl, EOMI ENT: Moist mucous membranes, No rhinorrhea Neck: Supple, Nontender Cardiovascular: Regular rate, Regular rhythm, No murmurs Respiratory: No distress, CTA bilaterally, Chest nontender Abdomen: Soft, Nondistended, Normal bowel sounds, - - There is a midline incision that is healing. There is a small area at the inferior aspect of the incision that has packing. There is some surrounding erythema. Back: Nontender, Normal Inspection Extremities: Nontender, No edema Skin: Normal color, No rash Neurological: Alert, Oriented x3, Cranial nerves II-XII grossly intact, Normal Strength, Normal Sensation Psychological: Normal affect, Normal Mood Diagnostic/Tx/Re-eval - Medical Decision Making I spoke with Dr. Moe. He came to the emergency department has evaluated the patient. He opened the wound more with additional packing. He like. Placed on Cipro. Additional wound care supplies (paper tape, packing,) were given to the patient. As far as her diarrhea the patient is able to give us a specimen I will be happy to send it for her. We will not have to wait for the results here today. ED Disposition - Plan for ED Patient: Disposition: Home or Assisted Living Diagnosis: Visit for wound check, Diarrhea Instructions: ED Diarrhea, Unknown Cause Prescriptions: Ciprofloxacin [Cipro] 500 mg PO BID #14 tab Prescription Printed Referrals: Gini Ojeda DO [Primary Care Provider] - Keep Ajmes appointment Todd Moe MD [STAFF PHYSICIAN] - (ON THURSDAY.)
--- NOTE | 2020-10-25 16:10 | PN_ITS ---
Progress Note I saw the patient in the emergency room. The patient did have some erythema around the lower part of her incision. After consenting the patient I prepped this area with Betadine and injected 1% lidocaine around the lower incision. A scalpel was used to reopen the lower half of the incision. The area was irrigated and a finger was used to palpate the fascia which was intact. All loculations were broken down and the area was copiously rinsed and then packed with half-inch iodoform gauze. A dressing was applied. The patient was instruc meagan to change dressing at least daily and after showers. The patient will follow-up with me on Thursday and will be started on Cipro. Clinda has been stopped. Patient otherwise feels well with no nausea or vomiting or other abdominal pain. No fevers or chills. Todd Moe MD Pager: [facility] [address] [place] [address], [address] [place] [address] Office: STROKE Vital Signs/Narrative: Vital Signs Temp Pulse Resp BP Pulse Ox 10/25/20 15:04 97.2 F L 74 18 126/77 H 98
== END 2020-10-25 16:18 | disposition home or self-care (01) ==
PROVIDERS: Emergency Provider Emergency Medicine; PCP Internal Medicine
DX: Z48.00 Encounter for change or removal of nonsurgical wound dressing (principal); R19.7 Diarrhea, unspecified; Z90.49 Acquired absence of other specified parts of digestive tract
CPT/HCPCS: 99282

== ENCOUNTER 2020-11-01 09:25 | Outpatient (RCR) | payer MEDICARE, SELFPAY ==
[2020-10-29 10:50] VITALS: BMI 31.6
[2020-10-31 12:29] VITALS: BMI 31.0
[2020-11-01] MEDS: COVID-19 VACC, MRNA(PFIZER)/PF 30 MCG/0.3 ML SYRINGE IM (13:17)
[2020-11-22] MEDS: COVID-19 VACC, MRNA(PFIZER)/PF 30 MCG/0.3 ML SYRINGE IM (12:38)
== END 2021-02-05 23:59 ==
LOC: IMMUN 09:25
PROVIDERS: PCP Internal Medicine; Visit Provider Family Medicine
DX: Z23 Encounter for immunization (principal)
CPT/HCPCS: 0001A; 0002A; 91300

== ENCOUNTER 2020-11-06 08:24 | Day surgery (SDC) | payer MEDICARE, SELFPAY ==
[2020-10-29 10:50] VITALS: BMI 31.6
[2020-10-31 12:29] VITALS: BMI 31.0
--- NOTE | 2020-11-06 07:43 | HP_ITS ---
Intake Intake Visit Reasons: POST OP INFECTION Chief Complaint: recheck abd incision Allergies penicillin G Allergy (Unknown, Verified 10/29/20 09:36) Unknown Medications calcium carbonate 200 mg calcium (500 mg) chewable tablet 200 mg PO DAILY tab 10/09/17 [History Confirmed 10/29/20] cholecalciferol (vitamin D3) 50 mcg (2,000 unit) capsule 6,000 unit PO ONCE cap 10/09/17 [History Confirmed 10/29/20] rosuvastatin 5 mg tablet 5 mg PO QODAY 10/09/17 [History Confirmed 10/29/20] Apixaban [Eliquis] 5 mg PO BID #60 tab 10/16/20 [Rx Confirmed 10/29/20] Diltiazem CD [Cardizem CD] 120 mg PO Q12 #60 cap 10/16/20 [Rx Confirmed 10/29/20] Metoprolol Tartrate [Lopressor (beta moise)] 50 mg PO BID #60 tab 10/16/20 [Rx Confirmed 10/29/20] Pantoprazole Sodium [Protonix] 20 mg PO DAILY #30 tab 10/16/20 [Rx Confirmed 10/29/20] coenzyme Q10 100 mg capsule 100 mg PO DAILY 10/23/20 [History Confirmed 10/29/20] Ciprofloxacin [Cipro] 500 mg PO BID #14 tab 10/25/20 [Rx Confirmed 10/29/20] [facility] Medical History (Updated 10/29/20 @ 10:[address] Todd Moe MD) Diarrhea (Acute) Vitamin D deficiency (Acute) Hyperlipemia (Acute) Carpal tunnel syndrome, bilateral (Acute) Mitral stenosis with insufficiency (Acute) Hypertension (Chronic) Mitral valve insufficiency (Acute) Bilateral carotid artery stenosis (Acute) Asthma (Acute) Fatty liver (Acute) Sciatica (Acute) Osteopenia (Acute) Paresthesia (Acute) Cholelithiasis (Acute) Chronic cholecystitis (Acute) Surgical History (Updated 10/25/20 @ 15:[address] Russell Rebolledo DO) S/P colonoscopy (Acute) Status post partial hysterectomy (Acute) Status post laser ablation of incompetent vein (Acute) S/P nasal polypectomy (Acute) History of exploratory laparotomy (Acute ~10/2020) History of hernia repair (Acute ~10/2020) History of shoulder replacement (Acute ~2019) S/P laparoscopic cholecystectomy (Acute ~10/23/17) Family History Father CAD (coronary artery disease) Diabetes Mother Lymphoma Sister Colon cancer Brother Colon cancer Social History (Updated 10/29/20 @ 10:[address] Todd Moe MD) Smoking Status: Never smoker HPI HPI HPI: FAVIO HE, is a 75 F who presents to the office today for HPI HPI Surgical H&P: Yes HPI: FAVIO HE, is a 75 F who presents to the office today for Follow-up after ER visit. Patient reports that there is minimal drainage from her abdominal incision. ROS General General: No weight change or fatigue Cardio Cardiovascular: No murmur, pacemaker, heart disease, atrial fibrillation, high blood pressure, heart attack, heart stent, palpitations, shortness of breat with exertion or chest pain Psych Psychiatric: No depression or anxiety Resp Respiratory: No shortness of breath, No sleep apnea, No cough, No COPD, No asthma, No emphysema, No wheezing Gastro Gastrointestinal: No abdominal pain, No nausea or vomiting, No diarrhea, No constipation, No blood in stool, No acid reflux, No hemorrhoids, No ulcers, No gallbladder problem, No black,tarry stools [place] Hematologic: No blood thinners Exam Const General: cooperative Orientation: alert, oriented x3 Resp Effort & Inspection: normal respiratory effort Auscultation: clear to auscultation bilaterally Cardio Rate: regular rate Rhythm: regular rhythm Heart Sounds: no murmurs GI Inspection: non-distended Palpation: soft, nontender Other: The incision is clean with good granulation tissue and no erythema. Assessment & Plan Problems 1. 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 S/P repair of ventral hernia Z98.890; Z87.19 Plan Patient is doing well after her incision was opened in the emergency room by myself. I packed the incision and start her on some antibiotics but there is no purulence at that time. She is not having any erythema or purulence at this time either. There is good granulation tissue with no sign of infection. I recommended continued light packing with gauze until the wound heals. The patient also was presented at tumor board this past week and it was recommended that we proceed with referral to oncology who she is seeing today and possible PET scan. It was also recommended the patient have upper and lower endoscopy to rule out GI source of metastatic malignancy. I will perform an EGD and colonoscopy for her. This has been scheduled. She will hold her blood thinners for 2 days prior to the procedure. I explained endoscopy in detail to the patient. I explained the risks including but not limited to stroke or heart attack with anesthesia, perforation of the GI tract, bleeding, infection. I explained that any of these could necessitate further emergency surgery. The patient understands and all questions were answered sufficiently. The patient wishes to proceed with procedure. 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 There are no clinical changes since date of exam.
[2020-11-06] MEDS: Lactated Ringers 1,000 ML 100 ML IV (09:05)
[2020-11-06 09:10] VITALS: BP 131/58; PULSE 64; RESP 18; TEMP 36.9; O2SAT 98; BMI 29.9
[2020-11-06 10:00] VITALS: BP 131/58; BP 93/43; PULSE 63; RESP 16; TEMP 36.2; O2SAT 97
--- NOTE | 2020-11-06 10:03 | OP.EGD_ITS ---
Patient Name: Bridgette Rqoue Procedure Date: 11/06/2020 9:29 AM Date of : 1945 Age: 75 Procedure: Upper GI endoscopy Indications: Peritoneal malignancy Providers: Todd Moe MD Referring MD: Gini Ojeda Medicines: Monitored Anesthesia Care Patient Profile: This is a 75 year old female. Refer to note in patient chart for documentation of history and physical. Complications: No immediate complications. Procedure: Pre-Anesthesia Assessment: - Prior to the procedure, a History and Physical was performed, and patient medications and allergies were reviewed. The patient's tolerance of previous anesthesia was also reviewed. The risks and benefits of the procedure and the sedation options and risks were discussed with the patient. All questions were answered, and informed consent was obtained. Prior Anticoagulants: The patient has taken no previous anticoagulant or antiplatelet agents. ASA Grade Assessment: II - A patient with mild systemic disease. After reviewing the risks and benefits, the patient was deemed in satisfactory condition to undergo the procedure. After obtaining informed consent, the endoscope was passed under direct vision. Throughout the procedure, the patient's blood pressure, pulse, and oxygen saturations were monitored continuously. The gastroscope was introduced through the mouth, and advanced to the second part of duodenum. The upper GI endoscopy was accomplished without difficulty. The patient tolerated the procedure well. Scope In: 9:39:39 AM Scope Out: 9:41:18 AM Total Procedure Duration Time 0 hours 1 minute 39 seconds Findings: The esophagus was normal. The stomach was normal. The examined duodenum was normal. Impression: - Normal esophagus. - Normal stomach. - Normal examined duodenum. - No specimens collected. Recommendation: - Discharge patient to home. - Resume previous diet. - Continue present medications. Procedure Code(s): --- Professional --- 85528, Esophagogastroduodenoscopy, flexible, transoral; diagnostic, including collection of specimen(s) by brushing or washing, when performed (separate procedure) Diagnosis Code(s): --- Professional --- C48.2, Malignant neoplasm of peritoneum, unspecified CPT copyright 2017 [employer]. All rights reserved. The codes documented in this report are preliminary and upon cotton classer aide review may be revised to meet current compliance requirements. Todd Moe MD 11/06/2020 10:03:13 AM This report has been signed electronically. Number of Addenda: 0 Note Initiated On: 11/06/2020 9:29 AM
--- NOTE | 2020-11-06 10:04 | OP.CCLET_ITS ---
11/06/2020 Gini Ojeda Re : Upper GI endoscopy procedure for Bridgette Ojeda This procedure was performed on Friday, November 06, 2020. My impressions and recommendations are as follows: Impressions : - Normal esophagus. - Normal stomach. - Normal examined duodenum. - No specimens collected. Recommendations : - Discharge patient to home. - Resume previous diet. - Continue present medications. My findings are described in the full procedure note, which is enclosed. If I can be of further assistance, please feel free to contact me at Doctor phone number(s): , Work: . Sincerely, Todd Moe MD 11/06/2020 10:03:13 AM This report has been signed electronically.
[2020-11-06 10:05] VITALS: BP 131/58; BP 92/47; PULSE 60; RESP 16; O2SAT 98
--- NOTE | 2020-11-06 10:05 | OP.COLON_ITS ---
Patient Name: Bridgette Roque Procedure Date: 11/06/2020 9:43 AM Date of : 1945 Age: 75 Procedure: Colonoscopy Indications: Peritoneal malignancy Providers: Todd Moe MD Referring MD: Gini Ojeda Medicines: Monitored Anesthesia Care Patient Profile: This is a 75 year old female. Refer to note in patient chart for documentation of history and physical. Last Colonoscopy: several years ago. Complications: No immediate complications. Procedure: Pre-Anesthesia Assessment: - Prior to the procedure, a History and Physical was performed, and patient medications and allergies were reviewed. The patient's tolerance of previous anesthesia was also reviewed. The risks and benefits of the procedure and the sedation options and risks were discussed with the patient. All questions were answered, and informed consent was obtained. Prior Anticoagulants: The patient has taken no previous anticoagulant or antiplatelet agents. ASA Grade Assessment: II - A patient with mild systemic disease. After reviewing the risks and benefits, the patient was deemed in satisfactory condition to undergo the procedure. After I obtained informed consent, the scope was passed under direct vision. Throughout the procedure, the patient's blood pressure, pulse, and oxygen saturations were monitored continuously. The pediatric colonoscope was introduced through the anus and advanced to the cecum, identified by appendiceal orifice and ileocecal valve. The colonoscopy was performed without difficulty. The patient tolerated the procedure well. The quality of the bowel preparation was good. Scope In: 9:43:35 AM Scope Withdrawal Time 0 hours 3 minutes 43 seconds Scope Out: 9:57:26 AM Total Procedure Duration Time 0 hours 13 minutes 51 seconds Findings: Multiple small-mouthed diverticula were found in the sigmoid colon. The exam was otherwise without abnormality on direct and retroflexion views. Impression: - Diverticulosis in the sigmoid colon. - The examination was otherwise normal on direct and retroflexion views. - No specimens collected. Recommendation: - Discharge patient to home. - Resume previous diet. - Continue present medications. - Repeat colonoscopy is not recommended due to current age (66 years or older) for screening purposes. Procedure Code(s): --- Professional --- 43278, Colonoscopy, flexible; diagnostic, including collection of specimen(s) by brushing or washing, when performed (separate procedure) Diagnosis Code(s): --- Professional --- C48.2, Malignant neoplasm of peritoneum, unspecified K57.30, Diverticulosis of large intestine without perforation or abscess without bleeding CPT copyright 2017 [employer]. All rights reserved. The codes documented in this report are preliminary and upon special forces communications sergeant review may be revised to meet current compliance requirements. Todd Moe MD 11/06/2020 10:04:40 AM This report has been signed electronically. Number of Addenda: 0 Note Initiated On: 11/06/2020 9:43 AM
--- NOTE | 2020-11-06 10:05 | OP.CCLET_ITS ---
11/06/2020 Gini Ojeda Re : Colonoscopy procedure for Bridgette Roque Dear Rusty This procedure was performed on Friday, November 06, 2020. My impressions and recommendations are as follows: Impressions : - Diverticulosis in the sigmoid colon. - The examination was otherwise normal on direct and retroflexion views. - No specimens collected. Recommendations : - Discharge patient to home. - Resume previous diet. - Continue present medications. - Repeat colonoscopy is not recommended due to current age (66 years or older) for screening purposes. My findings are described in the full procedure note, which is enclosed. If I can be of further assistance, please feel free to contact me at Doctor phone number(s): , Work: . Sincerely, Todd Moe MD 11/06/2020 10:04:40 AM This report has been signed electronically.
[2020-11-06 10:10] VITALS: BP 131/58; BP 99/52; PULSE 63; RESP 16; O2SAT 97
[2020-11-06 10:15] VITALS: BP 131/58; BP 97/46; PULSE 62; RESP 16; TEMP 36.3; O2SAT 98
[2020-11-06 10:47] VITALS: BP 131/58
== END 2020-11-06 10:48 | disposition home or self-care (01) ==
LOC: EN 08:24 → AC 08:24
PROVIDERS: PCP Internal Medicine; Referring Provider Internal Medicine; Visit Provider Surgery
PROC: 0DJD8ZZ Inspection of Lower Intestinal Tract, Via Natural or Artificial Opening Endoscopic (ICD-10-PCS; CPT 45378; principal; 2020-11-06 09:25)
DX: C78.6 Secondary malignant neoplasm of retroperitoneum and peritoneum (principal); K57.30 Diverticulosis of large intestine without perforation or abscess without bleeding; Z20.828 Contact with and (suspected) exposure to other viral communicable diseases; K58.9 Irritable bowel syndrome, unspecified; E78.5 Hyperlipidemia, unspecified; J45.909 Unspecified asthma, uncomplicated; C80.1 Malignant (primary) neoplasm, unspecified; I10 Essential (primary) hypertension; E55.9 Vitamin D deficiency, unspecified; Z79.01 Long term (current) use of anticoagulants; Z79.899 Other long term (current) drug therapy; I48.91 Unspecified atrial fibrillation
CPT/HCPCS: 43235; 45378; 87426; C9803; J7120

== ENCOUNTER → 2020-12-03 13:14 | Outpatient (CLI) | payer MEDICARE, SELFPAY ==
[2020-10-31 12:29] VITALS: BMI 31.0
== END ==
PROVIDERS: PCP Internal Medicine; Referring Provider Internal Medicine Cardiovascular Disease; Visit Provider Internal Medicine Cardiovascular Disease
DX: I48.91 Unspecified atrial fibrillation (principal)
CPT/HCPCS: 93225; 93226

== ENCOUNTER → 2021-06-20 14:09 | Outpatient (CLI) | payer MEDICARE, SELFPAY ==
--- NOTE | 2021-06-20 14:12 | CDU_ITS ---
Reason For Study: carotid stenosis Rt. Velocities/BP Lt. Velocities/BP Prox CCA 98.2/18.6 cm/sec. Prox CCA 119.1/20.0 cm/sec. Mid CCA 106.0/17.3 cm/sec. Mid CCA 107.3/19.9 cm/sec. Dist CCA 89.1/22.6 cm/sec. Dist CCA 85.1/16.0 cm/sec. Prox ICA 46.0/8.2 cm/sec. Prox ICA 107.2/20.0 cm/sec. Mid ICA 55.2/14.7 cm/sec. Mid ICA 71.6/17.6 cm/sec. Dist ICA 73.4/21.3 cm/sec. Dist ICA 71.6/20.0 cm/sec. Rt. ICA/CCA = .7. Lt. ICA/CCA = 1.0. Prox ECA 102.1/12.1 cm/sec. Prox ECA 130.2/9.7 cm/sec. Rt. Vert. 49.9/13.4 cm/sec. Lt. Vert. 44.6/9.0 cm/sec. Right Extracranial There is intimal thickening but no significant atherosclerotic plaque noted in the right common carotid artery. There is intimal thickening but no significant atherosclerotic plaque noted in the right internal carotid artery. There is intimal thickening but no significant atherosclerotic plaque noted in the right external carotid artery. Antegrade flow is noted in the right vertebral artery. Left Extracranial There is homogeneous, smooth atherosclerotic plaque noted in the left common carotid artery. There is heterogeneous, irregular atherosclerotic plaque noted in the left internal carotid artery. There is heterogeneous, irregular atherosclerotic plaque noted in the left external carotid artery. Antegrade flow is noted in the left vertebral artery. Procedure Carotid Duplex 80585. This is a Carotid Duplex examination using B-mode, color flow and specral Doppler. The exam was diagnostic. Exam performed in department. VL/Carotid Duplex Ultrasound Interpretation Summary Intimal thickening right internal carotid artery with < 50% stenosis <50% stenosis right external carotid Irregular calcific plague left internal carotid with <50% stenosis <50% stenosis left external carotid Patent, antegrade vertebrals bilaterally No change from 10/27/19 Ordering Physician: Gini Ojeda Performed By: Scott Davis RVT
== END ==
PROVIDERS: PCP Internal Medicine; Referring Provider Internal Medicine; Visit Provider Internal Medicine
DX: I65.23 Occlusion and stenosis of bilateral carotid arteries (principal)
CPT/HCPCS: 93880

== ENCOUNTER 2021-07-16 12:10 | Day surgery (SDC) | payer MEDICARE, SELFPAY ==
[2021-07-16] VITALS (7 sets, daily range): BP systolic 110–124; BP diastolic 54–87; PULSE 56–74; RESP 16; TEMP 36.1–36.6; O2SAT 97–100; BMI 30.8
--- NOTE | 2021-07-16 | IMM_PTH ---
PATIENT: FAVIO HE LOC: EN U#:[id number] AGE/SX: 76/F ROOM: RE07/16/[address]: Dr. Norberto Iyer DO : 1945 BED: DIS: 07/16/2021 SPEC #: [id number] RECD: 07/18/21 12:42 STATUS: NORMAN REQ #: [id number] KARISSA: 07/16/21 00:[address]: Norberto Iyer DEPT: IMMUNOHISTOCHEMISTRY RECD BY: Julieth Tejada ENTERED: 07/18/21 12:43 SP TYPE: IMMUNO OTHR DR: Dr. Gini Ojeda DO Tissues: C - Sigmoid colon biopsy Procedures: CA-125 (add) CEA (add) CK20 (add) CK7 (add) CK8 (add) P53 (add) Vimentin (add) Pankeratin (initial) PHYSICIAN & INSTITUTION [place] [address] SPECIMEN INFORMATION: Tissue Source: C ? Sigmoid colon biopsy Clinical Info: Diarrhea Specimen Number: [id number] CPT code: 24729, 12543 x7 METHODOLOGY: Deparaffinized sections of prefer/formalin-fixed tissue or PAP/DQ stained slides are incubated with monoclonal/polyclonal antibodies/oligonucleotide probes. Localization is made via biotin free immunoperoxidase method. Appropriate controls are performed and reacted as expected. Results on target cell population are indicated in the following table: RESULTS: ANTIBODY / CLONE RESULT Block C AE1-3 (AE1/AE3/PCK26) positive CK7 (OV-TL12/30) positive CK8 (22lyoaU45) positive CK20 (KS20.8) negative Vimentin (V9) negative CEA (11-7/TF-3HB-1) negative CA125 (OC125) positive P53 (DO-7) positive, 2% dim These tests were developed and their performance characteristics determined by [facility]. They may not have been cleared or approved by the U.S. Food and Drug Administration. The FDA has determined that such clearance or approval is not necessary. The above immunohistochemical/dualISH markers are ordered and reviewed by the Pathologist. INTERPRETATION: C. Sigmoid colon, biopsy: Metastatic adenocarcinoma. AM:ghazal 07/19/2021 Comment: The IHC profile favors an ovarian primary.
[2021-07-16] MEDS: Lactated Ringers 1,000 ML 15 ML IV (13:04)
--- NOTE | 2021-07-16 13:15 | COLBX_PTH ---
PATIENT: FAVIO HE LOC: EN U#:[id number] AGE/SX: 76/F ROOM: RE07/16/[address]: Dr. Norberto Iyer DO : 1945 BED: DIS: 07/16/2021 SPEC #: [id number] RECD: 07/16/21 18:49 STATUS: NORMAN RERyann #: [id number] KARISSA: 07/16/21 13:[address]: Norberto Iyer DEPT: SURGICAL PATHOLOGY RECD BY: Vianey Clark ENTERED: 07/17/21 13:00 SP TYPE: COLON BX OTHR DR: Dr. Gini Ojeda DO Tissues: A - Ileum, NOS B - COLON BIOPSY C - Sigmoid colon biopsy Procedures: Surgery Specimen Level IV HEADER OPERATION: Colonoscopy (MAC) PRE-OP DIAGNOSIS: Diarrhea TISSUE SUBMITTED: A ? Terminal ileum biopsy, B ? Random colon biopsy, C ? Sigmoid colon biopsy MICROSCOPIC DIAGNOSIS A. Terminal ileum, biopsy: No pathologic change. B. Colon, random biopsy: No pathologic change. C. Sigmoid colon, biopsy: Metastatic carcinoma consistent with ovarian primary. See comment. AM:ghazal 07/18/2021 COMMENT C. Immunohistochemistry ([id number]) supports the above diagnosis. Case has been reviewed in consultation with Dr. Estrada who concurs with the above diagnosis. IDC:SJ MICROSCOPIC DESCRIPTION Slides are reviewed. GROSS DESCRIPTION A - Received in fixative is one container labeled with the patient's name and designated terminal ileum. The specimen consists of multiple irregular fragments of light mejia soft tissue that in aggregate measure 1 x 0.3 x 0.1 cm. The specimen is totally submitted in one cassette. B - Received in fixative is one container labeled with the patient's name and designated random colon biopsy. The specimen consists of multiple irregular fragments of light mejia soft tissue that in aggregate measure 2.5 x 1 x 0.1 cm. The specimen is totally submitted in one cassette. C - Received in fixative is one container labeled with the patient's name and designated sigmoid colon biopsy. The specimen consists of multiple irregular fragments of light mejia soft tissue that in aggregate measure 1.2 x 0.5 x 0.1 cm. The specimen is totally submitted in one cassette. / AM:ghazal 07/17/21 TC:0 CPT: 94196 x3
--- NOTE | 2021-07-16 13:43 | HP.PCM_ITS ---
History and Physical Date of Admission: 07/16/21 HPI HPI Chief Complaint: Ovarian cancer Details: FAVIO HE, is a 76 F who presents to the office today for valuation of diarrhea. 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 In October of this year she developed a small bowel obstruction which required an emergent laparotomy with removal of adhesions. 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 Further imaging had shown that she had not only involvement of the small bowel but she also had peritoneal carcinomatosis, involvement of the fallopian tubes, ovaries, omentum and even her colon. She has been having diarrhea ever since she underwent small bowel resection. She was getting liquid stool to formed stools with urgency. She was started on fiber in a probiotic. She stopped the fiber after taking it for about 2 weeks and the diarrhea persisted. It was not until she stopped the probiotic on 06/17/2021 her stools began to become more formed. However she still has occasional urgent diarrhea. ROS Cardio Cardiology: Positive for shortness of breath Gastro GI: Positive for bloating, change in bowel habits and diarrhea Genitourinary-Female: Positive for urinary incontinence, urinary frequency and urinary urgency Musc Musculoskeletal: Positive for back pain, numbness, stiffness and tingling Neuro Neurology: Positive for numbness and tingling Exam Const General: cooperative and comfortable Nutritional Appearance: average body habitus and well nourished [facility] Head: normal to inspection Ears: hearing grossly normal bilaterally Nose: external nose normal Face and sinus: normal facial exam Mouth: oral mucosae normal Throat: posterior oropharynx normal Eyes General: appearance normal, both eyes and all related structures Neck Neck: normal visual inspection Chest Chest palpation & inspection: normal inspection of the chest and normal palpation of entire chest wall Resp Effort & Inspection: normal respiratory effort Auscultation: Bilateral: Clear to Auscultation Cardio Palpation: normal PMI Rate: regular rate Rhythm: regular rhythm GI Inspection: normal to inspection Auscultation: normal bowel sounds Percussion: normal to percussion Palpation: no hepatosplenomegaly Skin General: no rashes or lesions noted Neuro General: patient alert Extrem General: normal to inspection Psych Affect: normal affect Quality Reporting Tobacco Screening ([facility] 138) Smoking Status: Never smoker Assessment and Plan Assessment and Plan (1) Diarrhea: Plan - Dr. Thornton Friend, DO: Differential diagnosis for her diarrhea would be IBS with diarrhea, small bacterial overgrowth secondary to her recent surgery and multiple antibiotics, medication induced diarrhea or chronic infectious diarrhea of the small bowel. I would recommend an EGD with direct cultures, stool lactoferrin, ESR, CRP, LDH and stool for enteric pathogens. In the meantime I will start her on cholestyramine 2 g in the morning and 2 g at night.
--- NOTE | 2021-07-16 14:33 | OP.COLON_ITS ---
Patient Name: Bridgette Roque Procedure Date: 07/16/2021 1:48 PM Date of : 1945 Age: 76 Procedure: Colonoscopy Indications: Chronic diarrhea, Clinically significant diarrhea of unexplained origin Providers: Norberto Iyer DO Referring MD: Gini Ojeda Medicines: See the Anesthesia note for documentation of the administered medications Patient Profile: This is a 76 year old female. Refer to note in patient chart for documentation of history and physical. Last Colonoscopy: more than 3 years ago. Complications: No immediate complications. Procedure: Pre-Anesthesia Assessment: - Prior to the procedure, a History and Physical was performed, and patient medications and allergies were reviewed. The patient is competent. The risks and benefits of the procedure and the sedation options and risks were discussed with the patient. All questions were answered and informed consent was obtained. Patient identification and proposed procedure were verified by the physician in the pre-procedure area. Mental Status Examination: alert and oriented. Airway Examination: normal oropharyngeal airway and neck mobility. Respiratory Examination: clear to auscultation. CV Examination: normal. Prophylactic Antibiotics: The patient does not require prophylactic antibiotics. Prior Anticoagulants: The patient has taken no previous anticoagulant or antiplatelet agents. ASA Grade Assessment: II - A patient with mild systemic disease. After reviewing the risks and benefits, the patient was deemed in satisfactory condition to undergo the procedure. The anesthesia plan was to use moderate sedation / analgesia (conscious sedation). Immediately prior to administration of medications, the patient was re-assessed for adequacy to receive sedatives. The heart rate, respiratory rate, oxygen saturations, blood pressure, adequacy of pulmonary ventilation, and response to care were monitored throughout the procedure. The physical status of the patient was re-assessed after the procedure. After I obtained informed consent, the scope was passed under direct vision. Throughout the procedure, the patient's blood pressure, pulse, and oxygen saturations were monitored continuously. The Colonoscope was introduced through the anus and advanced to the terminal ileum, with identification of the appendiceal orifice and IC valve. The terminal ileum was photographed. Moderate Sedation: Moderate (conscious) sedation was administered by the endoscopy nurse and supervised by the endoscopist. The patient's oxygen saturation, heart rate, blood pressure and response to care were monitored. Total physician intraservice time was 15 minutes. Scope In: 2:03:10 PM Scope Withdrawal Time 0 hours 16 minutes 17 seconds Scope Out: 2:26:51 PM Total Procedure Duration Time 0 hours 23 minutes 41 seconds Findings: The perianal and digital rectal examinations were normal. Multiple small and large-mouthed diverticula were found in the left colon. There was evidence of an impacted diverticulum. An area of significantly congested mucosa was found in the sigmoid colon. Biopsies were taken with a cold forceps for histology. Verification of patient identification for the specimen was done. Estimated blood loss was minimal. A patchy area of mucosa in the distal ileum was moderately congested, erythematous and inflamed. Biopsies were taken with a cold forceps for histology. Verification of patient identification for the specimen was done. Estimated blood loss was minimal. Impression: - Severe diverticulosis in the left colon. There was evidence of an impacted diverticulum. - Congested mucosa in the sigmoid colon. Biopsied. - Congested, erythematous and inflamed mucosa in the distal ileum. Biopsied. Recommendation: - Discharge patient to home. - Resume previous diet. - Continue present medications. - Await pathology results. - Await pathology results. - The findings and recommendations were discussed with the patient's family. - Return to my office in 2 weeks. - Repeat colonoscopy PRN for surveillance based on pathology results. Procedure Code(s): --- Professional --- 87445, Colonoscopy, flexible; with biopsy, single or multiple G0500, Moderate sedation services provided by the same physician or other qualified health urgent care performing a gastrointestinal endoscopic service that sedation supports, requiring the presence of an independent trained observer to assist in the monitoring of the patient's level of consciousness and physiological status; initial 15 minutes of intra-service time; patient age 5 years or older (additional time may be reported with [address], as appropriate) CPT copyright 2017 [employer]. All rights reserved. The codes documented in this report are preliminary and upon irrigation equipment mechanic review may be revised to meet current compliance requirements. Norberto Iyer DO 07/16/2021 2:33:08 PM This report has been signed electronically. Number of Addenda: 1 Note Initiated On: 07/16/2021 1:48 PM Addendum Number: 1 Addendum Date: 05/02/2022 6:23:58 AM MAC was used instead of moderate sedation for this patient. Norberto Iyer DO 05/02/2022 6:24:03 AM This report has been signed electronically.
--- NOTE | 2021-07-16 14:33 | OP.CCLET_ITS ---
05/02/2022 Gini Ojeda Re : Colonoscopy procedure for Bridgette Roque Dear Rusty This procedure was performed on Friday, July 16, 2021. My impressions and recommendations are as follows: Impressions : - Severe diverticulosis in the left colon. There was evidence of an impacted diverticulum. - Congested mucosa in the sigmoid colon. Biopsied. - Congested, erythematous and inflamed mucosa in the distal ileum. Biopsied. Recommendations : - Discharge patient to home. - Resume previous diet. - Continue present medications. - Await pathology results. - Await pathology results. - The findings and recommendations were discussed with the patient's family. - Return to my office in 2 weeks. - Repeat colonoscopy PRN for surveillance based on pathology results. My findings are described in the full procedure note, which is enclosed. If I can be of further assistance, please feel free to contact me at . Sincerely, Norberto Friend, 07/16/2021 2:33:08 PM This report has been signed electronically.
== END 2021-07-16 15:58 | disposition home or self-care (01) ==
LOC: EN 12:11 → AC 12:24
PROVIDERS: PCP Internal Medicine; Referring Provider Internal Medicine; Visit Provider Internal Medicine Gastroenterology
PROC: 0DJD8ZZ Inspection of Lower Intestinal Tract, Via Natural or Artificial Opening Endoscopic (ICD-10-PCS; CPT 45378; principal; 2021-07-16 13:10)
DX: C56.9 Malignant neoplasm of unspecified ovary (principal); C18.7 Malignant neoplasm of sigmoid colon; C78.6 Secondary malignant neoplasm of retroperitoneum and peritoneum; K57.30 Diverticulosis of large intestine without perforation or abscess without bleeding; I48.91 Unspecified atrial fibrillation; I48.92 Unspecified atrial flutter; I48.0 Paroxysmal atrial fibrillation; E55.9 Vitamin D deficiency, unspecified; M54.30 Sciatica, unspecified side; Z79.01 Long term (current) use of anticoagulants; Z79.899 Other long term (current) drug therapy
CPT/HCPCS: 45380; 88305; 88341; 88342; J7120; J2405

== ENCOUNTER → 2021-07-22 12:52 | Outpatient (CLI) | payer MEDICARE, SELFPAY ==
--- NOTE | 2021-07-22 12:54 | BI_ITS ---
MAMMOGRAPHY - BILATERAL SCREENING 3-D TOMOSYNTHESIS REASON FOR EXAM: Female, 76 years old. Routine screening PERTINENT HISTORY: No significant family history. TECHNIQUE: 2-D mammograms and 3-D Tomosynthesis of the breast (s) were performed. CAD was performed. COMPARISON: 06/19/2020 FINDINGS: The breast composition is heterogeneously dense that can obscure small breast masses. Scattered benign calcifications are seen. No dense spiculated masses or suspicious microcalcifications are identified. No architectural distortion is identified. There is no skin thickening or retraction. There has been no significant change since the prior study. BI/SCRN MAMM (CAD)W/JASPER BILAT IMPRESSION: No mammographic signs of malignancy. Routine yearly mammograms recommended. ASSESSMENT CATEGORY: BIRADS Category 2: Benign. A letter regarding these results will be sent to the patient by the facility within 30 days. FOLLOW UP RECOMMENDATION: Yearly follow up mammogram recommended. (A) Approximately 10% of breast cancers are not detected by mammography. A normal mammogram should not delay biopsy of a clinically suspicious abnormality. Electronically Signed: Epi Mcdonnell MD at 17:23 EST , Service support ,
== END ==
PROVIDERS: PCP Internal Medicine; Referring Provider Internal Medicine; Visit Provider Internal Medicine
DX: Z12.31 Encounter for screening mammogram for malignant neoplasm of breast (principal)
CPT/HCPCS: 77063; 77067

== ENCOUNTER 2021-09-03 09:54 | Outpatient (CLI) | payer MEDICARE, SELFPAY ==
--- NOTE | 2021-09-03 09:57 | US_ITS ---
STUDY: ABDOMINAL ULTRASOUND - RIGHT UPPER QUADRANT REASON FOR VISIT: Female, 76 years old HEPATOMEGALY TECHNIQUE: Ultrasound evaluation of the right upper quadrant was performed with real-time and static martini-scale imaging. TECHNICAL QUALITY: Adequate. COMPARISON: None. FINDINGS: Liver: The liver is enlarged and measures 18.3 cm. There is increased echogenicity consistent with fatty infiltration. The bile ducts are within normal limits. There is hepatic color flow. The direction of portal flow is hepatopetal. There is no demonstrated mass lesion. Gallbladder: The patient is status post cholecystectomy. Common Bile Duct (C.B.D.): The common bile duct measures 8.4 mm. Pancreas: Normal size of the head, body and tail of the pancreas. There is normal echogenicity of the pancreas. There is no demonstrated pancreatic mass or cyst. Right Kidney: Normal size of the right kidney. The right kidney measures 13.6 cm x 5.7 cm x 4.3 cm. Normal renal cortex. The right cortex measures 1.3 cm. There is no demonstrated renal mass or cyst. There is no right hydronephrosis. IMPRESSION: Mild hepatomegaly and fatty infiltration of the liver. Electronically Signed: Wellington Fontaine MD at 15:42 EST , Service support , STUDY: ABDOMINAL ULTRASOUND - ELASTOGRAPHY REASON FOR VISIT: Female, 76 years old. Fatty infiltration of the liver. TECHNIQUE: Liver stiffness measurements were obtained on a [employer] 85 ultrasound machine using a CA 1-7 probe following the SRU guidelines. 3 measurements were obtained using a 2-D-SWE method. The IQR/M was 18% suggesting a quality data set. TECHNICAL QUALITY: Adequate. COMPARISON: Comparison is made with prior study done earlier today. FINDINGS: Liver: Fatty infiltration of the liver. Median liver stiffness measured 8 kPa. US/Abdomen Limited IMPRESSION: Liver stiffness measures 8 kPa compatible with F2 Metavir score. Electronically Signed: Wellington Fontaine MD at 15:43 EST , Service support ,
== END 2021-09-03 23:59 | disposition short-term general hospital (02) ==
LOC: US 09:55
PROVIDERS: PCP Internal Medicine; Referring Provider Internal Medicine Gastroenterology; Visit Provider Internal Medicine Gastroenterology
DX: R16.0 Hepatomegaly, not elsewhere classified (principal); E78.89 Other lipoprotein metabolism disorders
CPT/HCPCS: 76705; 76981

== ENCOUNTER 2021-09-19 09:11 | Outpatient (CLI) | payer MEDICARE, SELFPAY ==
[2021-09-19] MEDS: 0.9% Saline Lock 10 ML Syringe IV (09:40)
[2021-09-19 09:43] VITALS: BP 151/94; PULSE 117; RESP 16; TEMP 36.9; O2SAT 98; BMI 31.0
[2021-09-19 11:13] VITALS: BP 134/77; PULSE 108; RESP 16; TEMP 37.1; O2SAT 98
== END 2021-09-19 23:59 | disposition home or self-care (01) ==
LOC: MS3OUT 09:12 → MS3 09:13
PROVIDERS: PCP Internal Medicine; Referring Provider Nurse Practitioner Adult Health; Visit Provider Nurse Practitioner Adult Health
DX: Z23 Encounter for immunization (principal); U07.1 COVID-19
CPT/HCPCS: J7050; M0245; Q0245; A4216

== ENCOUNTER → 2022-02-04 | Outpatient (CLI) | payer MEDICARE, SELFPAY ==
--- NOTE | 2022-02-04 14:23 | VDLE_ITS ---
Reason For Study: Swelling RIGHT CFV is compressible, spontaneous, phasic, competent and demonstrates normal augmentation. FV is compressible, spontaneous, phasic, competent and demonstrates normal augmentation. POP V is compressible, spontaneous, phasic, competent and demonstrates normal augmentation. T/P Trunk is compressible. PTV is compressible. RT PerV is compressible. GSV is absent. Procedure This is a venous duplex using B-mode, color flow and spectral Doppler. Exam performed in department. A preliminary report was called and/or faxed to [facility]. VL/Venous Duplex US, Unilateral Interpretation Summary Deep veins of the right lower extremity are patent and compressible segmentally . There is no evidence of right lower extremity deep vein thrombosis. Valvular competence randy ears intact within the proximal deep venous system on the right . The right great saphenous vein i s absent. Ordering Physician: Gini Ojeda Referring Physician: Gini Ojeda D.O. Performed By: Palmira Hammond RVT
== END | disposition home or self-care (01) ==
LOC: CVS 14:19
PROVIDERS: PCP Internal Medicine; Visit Provider Internal Medicine
DX: M79.89 Other specified soft tissue disorders (principal)
CPT/HCPCS: 93971

== ENCOUNTER → 2022-08-19 | Outpatient (CLI) | payer MEDICARE, SELFPAY ==
--- NOTE | 2022-08-19 09:02 | BI_ITS ---
MAMMOGRAPHY - BILATERAL SCREENING REASON FOR EXAM: Female, 77 years old. Routine annual screening examination. PERTINENT HISTORY: Non-contributory. History of prior left stereotactic breast biopsies. TECHNIQUE: Digital bilateral breast jasper (3D mammographic acquisition) in the CC and MLO projections. 2-D mediolateral oblique (MLO) and craniocaudad (CC) views of both breasts were obtained. CAD: Full Field Digital Mammography with Computer Added Detection was performed. COMPARISON: Comparison is made with prior study dated 07/22/2021 and 06/19/2020. FINDINGS: Breast Composition: The breasts are heterogeneously dense, which may obscure small masses. There are no dominant masses or suspicious calcifications. Once again, 2 tissue markers are seen in the deep upper outer aspect of the left breast. Stable scattered bilateral calcifications. No focal cluster is seen. No other significant abnormalities are identified. There has been no significant change since the prior study. BI/SCRN MAMM (CAD)W/JASPER BILAT IMPRESSION: Stable bilateral screening mammogram. Yearly follow-up mammogram recommended. (A) ASSESSMENT CATEGORY: BIRADS Category 2: Benign. A letter regarding these results will be sent to the patient by the facility within 30 days. Approximately 10% of breast cancers are not detected by mammography. A normal mammogram should not delay biopsy of a clinically suspicious abnormality. [id number] Electronically Signed: Wellington Fontaine MD at 12:28 EST ,
--- NOTE | 2022-08-19 09:08 | BD_ITS ---
STUDY: DUAL ENERGY X-RAY ABSORPTIOMETRY / DXA REASON FOR EXAM: Female, 77 years old. [id number] -- pt postmenopausal, due for screening DEXA TECHNIQUE: Bone Mineral Density (BMD) measurements of lumbar spine and bilateral hips were obtained. COMPARISON: Comparison is made with prior study dated 06/19/2020. FINDINGS: Lumbar Spine (L1-L4): g/cm2 (0.899) / T-score (-1.8) / Z-score (0.9) Findings are suggestive of osteopenia with a moderate fracture risk. Left Femur Total: g/cm2 (0.920) / T-score (-0.2) / Z-score (1.8) Left Femoral Neck: g/cm2 (0.800) / T-score (-0.4) / Z-score (1.8) Right Femur Total: g/cm2 (0.874) / T-score (-0.6) / Z-score (1.5) Right Femoral Neck: g/cm2 (0.685) / T-score (-1.5) / Z-score (0.8) The T-Scores on the most recent prior examination were: Lumbar Spine (L1-L4): There has been worsening of bone density since the previous examination. Left Femur Total: which represents an improvement of 9.4. Right Femur Total: which represents an improvement of 11.5%. BD/Dexa Bone Density Study IMPRESSION: The patient is considered osteopenic as outlined below according to World [place] Organization (WHO) criteria with a moderate fracture risk. There has been improvement of bone density since the previous examination. Reference Information: The T-score is the number of standard deviations above or below the standard which is normal for young adults at their peak bone mineral density. The World Health Organization (WHO) interprets the T-scores as follows: Above -1 Normal bone density Between -1 and -2.5 Osteopenia Equal to / or below -2.5 Osteoporosis As a practical clinical guideline, osteopenia may be graded as follows: Mild -1 through -1.5 Moderate -1.6 through -2.0 Severe -2.1 through -2.4 The Z-score is the number of standard deviations above or below age-matched controls. A Z-score of less than -1.5 would be considered abnormal. References: 1. NIH Osteoporosis and Related Bone Diseases www osteo.org 2. International Society for Clinical Densitometry www iscd.org 3. National Osteoporosis Foundation www nof.org Electronically Signed: Wellington Fontaine MD at 9:17 EST ,
== END | disposition home or self-care (01) ==
LOC: OPBD 09:00
PROVIDERS: PCP Internal Medicine; Referring Provider Internal Medicine; Visit Provider Internal Medicine
DX: Z78.0 Asymptomatic menopausal state (principal); Z12.31 Encounter for screening mammogram for malignant neoplasm of breast
CPT/HCPCS: 77063; 77067; 77080

== ENCOUNTER 2022-09-01 16:49 | Emergency (ER) | payer MEDICARE, SELFPAY ==
[2022-09-01 16:50] VITALS: BP 145/65; PULSE 69; RESP 16; TEMP 36.6; O2SAT 96; BMI 37.1
--- NOTE | 2022-09-01 17:05 | RAD_ITS ---
EXAM: XR RIGHT ELBOW COMPLETE, 3 OR MORE VIEWS CLINICAL INDICATION: FALL TECHNIQUE: Frontal, lateral and oblique views of the right elbow. This report was created using [employer] report generation technology. COMPARISON: None. FINDINGS: BONES/JOINTS: Unremarkable. There is no displacement of the anterior or posterior fat pads. No acute fracture. No subluxation. Normal alignment. Preservation of the joint space. No destructive or sclerotic lesions. SOFT TISSUES: Unremarkable. No soft tissue swelling or gas. No radiopaque foreign body. RAD/Elbow min 3 Views IMPRESSION: Negative right elbow. Electronically Signed: Greg Castillo MD at 18:03 EST ,
--- NOTE | 2022-09-01 17:10 | RAD_ITS ---
EXAM: XR LEFT HAND COMPLETE, 3 OR MORE VIEWS CLINICAL INDICATION: FALL TECHNIQUE: Frontal, lateral and oblique views of the left hand. This report was created using [employer] report generation technology. COMPARISON: None. FINDINGS: BONES/JOINTS: Mild degenerative changes with narrowing of the distal interphalangeal joints. There is also narrowing of the first carpometacarpal joint. No acute fracture. No subluxation. Normal alignment. No sclerotic or destructive changes observed. SOFT TISSUES: Unremarkable. No soft tissue swelling or gas. No radiopaque foreign body. RAD/Hand Min 3 Views IMPRESSION: Mild arthritic changes with narrowing of the first carpometacarpal joint and the distal interphalangeal joints. There are no acute osseous abnormalities. Electronically Signed: Greg Castillo MD at 18:04 EST ,
--- NOTE | 2022-09-01 17:14 | RAD_ITS ---
EXAM: XR RIGHT KNEE, 3 VIEWS CLINICAL INDICATION: FALL TECHNIQUE: Three views of the right knee. This report was created using [employer] report generation technology. COMPARISON: None. FINDINGS: BONES/JOINTS: There are degenerative changes with narrowing of the lateral joint space. Small osteophytes are also present. No acute fracture. No subluxation. Normal alignment. No sclerotic or destructive changes observed. SOFT TISSUES: Unremarkable. No soft tissue swelling or gas. No radiopaque foreign body. RAD/Knee 3 Views IMPRESSION: No acute osseous abnormalities. There are degenerative changes with narrowing of the lateral knee joint with small osteophytes. Electronically Signed: Greg Castillo MD at 18:07 EST ,
--- NOTE | 2022-09-01 17:17 | RAD_ITS ---
EXAM: XR LEFT WRIST COMPLETE, 3 OR MORE VIEWS CLINICAL INDICATION: FALL TECHNIQUE: Frontal, lateral and oblique views of the left wrist. This report was created using [employer] report generation technology. COMPARISON: None. FINDINGS: BONES/JOINTS: There are degenerative changes with narrowing of the first carpometacarpal joint. No acute fracture. No subluxation. Normal alignment. No sclerotic or destructive changes observed. SOFT TISSUES: Unremarkable. No soft tissue swelling or gas. No radiopaque foreign body. RAD/Wrist min 3 Views IMPRESSION: No acute osseous abnormalities. There are degenerative changes with narrowing of the first carpometacarpal joint. Electronically Signed: Greg Castillo MD at 18:08 EST ,
--- NOTE | 2022-09-01 19:13 | RAD_ITS ---
EXAM: XR CHEST, 2 VIEWS CLINICAL INDICATION: fall, rib pain TECHNIQUE: Frontal and lateral views of the chest. This report was created using [employer] report generation technology. COMPARISON: 10/14/2020 FINDINGS: LUNGS AND PLEURAL SPACES: Unremarkable. No consolidation or edema. No pneumothorax. No effusion. HEART: Unremarkable. Cardiac silhouette not enlarged. MEDIASTINUM: Central airways and mediastinal contour are unremarkable. BONES/JOINTS: There is a total right shoulder prosthesis. SOFT TISSUES: Unremarkable. RAD/Chest PA and Lateral IMPRESSION: No acute findings in the chest. Electronically Signed: Greg Castillo MD at 20:05 EST ,
--- NOTE | 2022-09-01 19:32 | EDS_ITS ---
HPI HPI - Fall History of Present Illness Chief Complaint: Fall Informant: patient Occured/Mechanism Occurred: Today Narrative Narrative: Patient presents after a fall approximate 3 and half hours prior to presentation. She was coming into the hospital to visit her when she tripped on the curb and fell. She is complaining of pain to the left hand and wrist as well as the right elbow and knee. These areas were x-rayed via nursing protocol from triage. After this was performed she noted some right anterior rib tenderness as well. She denies striking her head or loss of consciousness. She has no headache or vision change. [facility] Medical History Anemia Asthma Atrial fibrillation with rapid ventricular response (10/12/20) Atrial flutter with rapid ventricular response (10/12/20) Bilateral carotid artery stenosis Calculus of gallbladder with chronic cholecystitis without obstruction Carpal tunnel syndrome, bilateral Cholelithiasis Chronic cholecystitis COPD (chronic obstructive pulmonary disease) Diarrhea Essential (primary) hypertension Fatty liver Hyperlipemia Loose, teeth Non-smoker Nonrheumatic mitral valve stenosis with insufficiency Osteopenia Ovarian cancer Paresthesia Peritoneal carcinomatosis Psoriasis Right lower lobe pulmonary nodule Sciatica Shortness of breath on exertion Thyroid nodule Vitamin D deficiency Wears contact lenses Home Medications calcium carbonate 200 mg calcium (500 mg) chewable tablet (Tums) 200 mg PO DAILY supplement 10/09/17 [History Last Taken Unknown] cholecalciferol (vitamin D3) 50 mcg (2,000 unit) capsule 6,000 unit PO ONCE supplement 10/09/17 [History Last Taken Unknown] rosuvastatin 5 mg tablet (Crestor) 5 mg PO QODAY CHOLESTEROL 10/09/17 [History Last Taken Unknown] metoprolol tartrate 50 mg tablet 50 mg PO BID #60 tabs 10/16/20 [Rx Last Taken 07/16/21 10:00] coenzyme Q10 100 mg capsule 100 mg PO DAILY 10/23/20 [History Last Taken Unknown] letrozole 2.5 mg tablet (Femara) 2.5 mg PO DAILY 01/07/21 [History Last Taken Unknown] zoledronic acid 4 mg intravenous solution 4 mg IV 07/02/21 [History Last Taken Unknown] diltiazem HCl 120 mg capsule,extended release 24 hr (Cardizem CD) 120 mg PO Q12 07/11/21 [History Last Taken 07/16/21 10:00] clindamycin HCl 300 mg capsule 300 mg PO DAILY 09/19/21 [History Last Taken Unknown] apixaban 5 mg tablet (Eliquis) 5 mg PO BID #180 tabs 05/19/22 [Rx Last Taken Unknown] budesonide 3 mg capsule,delayed,extended release 3 mg PO QAM 07/01/22 [History Last Taken Unknown] diphenoxylate-atropine 2.5 mg-0.025 mg tablet (Lomotil) 1 tab PO TID PRN diarrhea #90 tabs 07/01/22 [Rx Last Taken Unknown] Allergy/AdvReac Type Severity Reaction Status Date / Time morphine AdvReac Severe Nausea/Vom/ Verified 09/01/22 16:52 Diarrhea penicillin G AdvReac Unknown Unknown Verified 09/01/22 16:52 Family History Father CAD (coronary artery disease) Diabetes Mother Lymphoma Sister Colon cancer Brother Colon cancer Surgical History H/O nasal polypectomy History of cholecystectomy (10/23/17) History of colonoscopy History of exploratory laparotomy (10/2020) History of hernia repair (10/2020) History of hysterectomy with unilateral oophorectomy (1983) History of shoulder replacement (2019) Status post laser ablation of incompetent vein Social History Smoking Status: Never smoker second hand exposure: No alcohol intake: never details: rare substance use type: does not use caffeine: No what type of physical activity do you participate in: walking frequency: 3-4 times per week duration: < 15 minutes/day patricia/zoroastrianism: Jain seatbelt use: always do you feel safe at home: Yes ROS ROS ED Constitutional Constitutional ED: Denies chills or fever(s) Eyes Eyes: Denies change in vision or discharge from eye(s) ENT ENT ED: Denies discharge from eye(s), rhinorrhea or sore throat Cardiovascular Cardiovascular: Reports chest pain; Denies palpitations Respiratory/Chest Respiratory/Chest: Denies cough or dyspnea Gastrointestinal Gastrointestinal: Denies abdominal pain, nausea or vomiting Genitourinary Genitourinary ED: Denies difficulty urinating or dysuria Musculoskeletal Musculoskeletal: Reports extremity pain; Denies back pain Integumentary Denies Abrasions or rash Neurologic Neurologic: Denies headache(s) or weakness Psychiatric Psychiatric: Denies anxiety or depression Allergic/Immunologic Allergic/Immunologic ED: Denies lip swelling or urticaria EXAM Physical Exam Const Vital Signs: 09/01/22 16:50 09/01/22 18:52 Temperature 97.8 F Temperature Source Temporal Pulse Rate 69 Respiratory Rate 16 Respiratory Effort Normal Non-Labored Respiratory Depth Normal Respiratory Pattern Normal Blood Pressure 145/65 H Blood Pressure Mean 91 Pulse Ox 96 Oxygen Delivery Method Room Air Room Air Positive well nourished and well developed General Appearance ED: well developed HEENT Reports normocephalic and head/scalp atraumatic Eyes PERRL and EOMs intact bilaterally Neck supple Chest Wall inspection of chest normal Chest Narrative: Mild right anterior chest wall tenderness. No crepitus. Resp normal respiratory effort and clear to auscultation bilaterally Cardio regular rate and regular rhythm GI normal to inspection, nondistended, normoactive bowel sounds Palpation: soft Extremity Extremity Narrative: Patient has mild tenderness location of the left hand and wrist. No obvious deformities noted. Good distal pulses. I did recommend the patient remove her rings before her fingers swell any further. Right upper extremity examination reveals mild tenderness at the elbow. Good range of motion. Lower extremity examination with mild tenderness of the right anterior knee. Again, good range of motion is noted. Neuro oriented x3 and no sensory deficits noted Sensorium / Orientation: alert Motor Exam: strength 5/5 throughout Psych mental status grossly normal Skin no rashes or lesions noted MDM MDM MDM Narrative Medical decision making narrative: X-rays of the left hand and wrist were obtained along with right knee and right elbow. At the time of my exam I added a 2 view chest x-ray. Radiography Diagnostic Testing: Clinical Impression(s) from Imaging Studies Elbow X-Ray 09/01/22 17:05 IMPRESSION: Negative right elbow. Electronically Signed: Greg Castillo MD at 18:03 EST , Hand X-Ray 09/01/22 17:10 IMPRESSION: Mild arthritic changes with narrowing of the first carpometacarpal joint and the distal interphalangeal joints. There are no acute osseous abnormalities. Electronically Signed: Greg Castillo MD at 18:04 EST , Knee X-Ray 09/01/22 17:14 IMPRESSION: No acute osseous abnormalities. There are degenerative changes with narrowing of the lateral knee joint with small osteophytes. Electronically Signed: Greg Castillo MD at 18:07 EST , Wrist X-Ray 09/01/22 17:17 IMPRESSION: No acute osseous abnormalities. There are degenerative changes with narrowing of the first carpometacarpal joint. Electronically Signed: Greg Castillo MD at 18:08 EST , Treatment and Re-Evaluation Narrative: X-ray of the left hand and left wrist reveal no obvious fractures per my interpretation. Right elbow x-ray reveals no fracture. Right knee x-ray reveals arthritic changes with no acute fracture. Radiology interpretation is reviewed on all these images and agree there is no acute fracture. 2 view chest x-ray per my interpretation reveals no obvious rib fracture. No pneumothorax. Test results are all discussed with the patient. She is comfortable with discharge to home and continued supportive care. Discharge Plan Triage Chief Complaint: Fall ED Provider: Rajani Menendez Dx/Rx/DC Orders Clinical Impression: Fall, Contusion of upper extremity, Contusion of lower extremity, Chest wall contusion Instructions: ED Contusion, Lower Extremity, ED Contusion, Upper Extremity, ED Chest Wall Contusion Prescriptions: No Action cholecalciferol (vitamin D3) 2,000 unit capsule 6,000 unit PO ONCE rosuvastatin [Crestor] 5 mg tablet 5 mg PO QODAY calcium carbonate [Tums] 200 mg calcium (500 mg) tablet,chewable 200 mg PO DAILY coenzyme Q10 100 mg capsule 100 mg PO DAILY letrozole [Femara] 2.5 mg tablet 2.5 mg PO DAILY zoledronic acid 4 mg recon soln 4 mg IV Rx Instructions: injection every 6 months diphenoxylate-atropine [Lomotil] 2.5-0.025 mg tablet 1 tab PO TID PRN (Reason: diarrhea) Qty: 90 5RF budesonide 3 mg capsule,delayed,extend.release 3 mg PO QAM metoprolol tartrate 50 MG tablet 50 mg PO BID Qty: 60 0RF diltiazem HCl [Cardizem CD] 120 MG capsule,extended release 24hr 120 mg PO Q12 clindamycin HCl 300 mg capsule 300 mg PO DAILY Eliquis 5 mg tablet 5 mg PO BID Qty: 180 4RF Primary Care Provider: Gini Ojeda Referrals: Gini Ojeda DO [Primary Care Provider] - 1 Week Disposition Disposition: Home, Self Care
[2022-09-01 19:55] VITALS: PULSE 68; RESP 15; O2SAT 97
== END 2022-09-01 19:55 | disposition home or self-care (01) ==
PROVIDERS: Emergency Provider Emergency Medicine; PCP Internal Medicine; Visit Provider Emergency Medicine
DX: S60.222A Contusion of left hand, initial encounter (principal); S60.212A Contusion of left wrist, initial encounter; S20.20XA Contusion of thorax, unspecified, initial encounter; S80.01XA Contusion of right knee, initial encounter; K76.0 Fatty (change of) liver, not elsewhere classified; W10.1XXA Fall (on)(from) sidewalk curb, initial encounter
CPT/HCPCS: 71046; 73080; 73110; 73130; 73562; 99282

== ENCOUNTER → 2022-10-02 | Outpatient (CLI) | payer MEDICARE, SELFPAY ==
--- NOTE | 2022-10-02 13:07 | CDU_ITS ---
Reason For Study: Carotid Stenosis Rt. Velocities/BP Lt. Velocities/BP Prox CCA 96.6/11.3 cm/sec. Prox CCA 102.7/20.4 cm/sec. Mid CCA 86.4/17.1 cm/sec. Mid CCA 94.1/17.1 cm/sec. Dist CCA 82.8/15.7 cm/sec. Dist CCA 83.1/11.7 cm/sec. Prox ICA 52.2/12.6 cm/sec. Prox ICA 101.6/23.0 cm/sec. Mid ICA 55.1/16.3 cm/sec. Mid ICA 101.6/24.8 cm/sec. Dist ICA 58.9/17.3 cm/sec. Dist ICA 91.6/26.5 cm/sec. Rt. ICA/CCA = 0.7. Lt. ICA/CCA = 1.1. Prox ECA 69.5/8.1 cm/sec. Prox ECA 123.6/16.9 cm/sec. Rt. Vert. 48.5/12.7 cm/sec. Lt. Vert. 56.0/11.8 cm/sec. Right Extracranial There is homogeneous, smooth atherosclerotic plaque noted in the right common carotid artery. There is intimal thickening but no significant atherosclerotic plaque noted in the right internal carotid artery. There is intimal thickening but no significant atherosclerotic plaque noted in the right external carotid artery. Antegrade flow is noted in the right vertebral artery. Left Extracranial There is homogeneous, smooth atherosclerotic plaque noted in the left common carotid artery. There is heterogeneous, irregular atherosclerotic plaque noted in the left internal carotid artery. There is intimal thickening but no significant atherosclerotic plaque noted in the left external carotid artery. Antegrade flow is noted in the left vertebral artery. Procedure Carotid Duplex [id number]. This is a Carotid Duplex examination using B-mode, color flow and specral Doppler. The exam was diagnostic. Exam performed in department. VL/Carotid Duplex Ultrasound Interpretation Summary No significant atherosclerotic plaque or stenosis noted in the right internal c arotid artery. Mild (<50%) stenosis left extracranial internal carotid. Flow within the vertebral a rteries is antegrade bilaterally. Ordering Physician: Gini Ojeda Referring Physician: Gini Ojeda Performed By: Jordi Goel RVT
--- NOTE | 2022-10-02 13:07 | US_ITS ---
INDICATION: thyroid nodule EXAMINATION: Ultrasound US Thyroid (eg thyroid, parathyroid, parotid) TECHNIQUE: Ragland scale and color doppler imaging was performed of the thyroid gland. COMPARISON: None. FINDINGS: RIGHT THYROID LOBE: 5.1 x 1.7 x 2.0 cm. Homogeneous echotexture with normal vascularity. [There is mild thyroid mid thyroid 4 x 4 x 3 mm heterogeneous nodule. There is a mid thyroid 3 mm cyst. There is a lower pole posterior solid 1.4 x 1.0 x 1.2 cm nodule in LEFT THYROID LOBE: 5.6 x 1.9 x 1.7 cm. Homogeneous echotexture with normal vascularity. [There is a 5 x 6 x 4 mm calcified solid nodule at the lower pole. There is a heterogeneous 1.4 x 0.9 x 1.2 cm partially calcified upper pole nodule. There is a mid thyroid calcified nodule measuring 9 mm. ISTHMUS: 3 mm. No thyroid nodules are present. US/Thyroid IMPRESSION: Bilateral thyroid nodules as noted. Electronically Signed: Dayne De DO at 23:01 EST ,
== END | disposition home or self-care (01) ==
LOC: CVS 13:06
PROVIDERS: PCP Internal Medicine; Referring Provider Internal Medicine; Visit Provider Internal Medicine
DX: I65.23 Occlusion and stenosis of bilateral carotid arteries (principal); E04.1 Nontoxic single thyroid nodule
CPT/HCPCS: 76536; 93880

== ENCOUNTER 2022-11-12 14:30 | Outpatient (RCR) | payer MEDICARE, SELFPAY ==
--- NOTE | 2022-10-31 15:08 | HP.PTEVAL ---
Patient's Visit Information FAVIO HE is a 77 year old F referred to Physical Therapy by Dr. Gini Ojeda DO with a diagnosis of generalized weakness and falls. Date of Evaluation: 10/31/22 Physical Therapist: Jose Juan Rider DPT, OCS, CSCS - Visit Plan Frequency: 3x /Week Duration: 4-6 Weeks Plan: 3x/week for 3-6 weeks. Consider balance test after I with strength. Hold for now until after foot doctor visit. Start with ankle coordination and balance exercises, general home based strength(sik and band) program for LE adn emphasize function of getting off floor, steps, and sit to stand from lower chair. Pics and instruct when safe and I. - Subjective History of DDD and R TSA. Now feels like her back and core muscles are weak. She fell the day after new year's and stepped off curb wrong and fell. Was just walking too fast. did not break anything but hurt all over. Family then made her start using a cane at that time. it does give confidence. Another time, she caught foot on box and had hard time getting up off floor. Had to walk on knees to lean on something. Sent to therapy to get stronger and check balance. Not doing much exercise as she feels unsure getting on and off bike. Sleep is Ok. Not employed, is in NH and she visits him now in hospice. She visits him daily. Spends day taking care of house, doctor appointment and visiting . is on CA meds and infusions for bowel CA. Goes out with friends once per week. Basic ADLS at home are getting done and takes care of house. - Objective Cane in R UE walking mod I, short steps and avoids forefoot WB in R foot due to pain(foot doctor next week). Short steps adn more hip then ankle movement. Trasnfer chair requiring UE, Bed trasnfer I. Steps reciprocal with one rail but obvious weakness stepping up and eccentric lowering. Ankle, hip and knee AROM WFL, coordination to ankle inv/ev is poor and tends to move at hip. reflexes 0/3 patella and achilles B. Sensation WNL to gross light touch in LE. Strength hips 3+ abd and ext adn flexion, knee flex /ext 4, ankle 4- B PF/DF adn 3 Inv/ev - Balance/Special Test Scores Functional Gait Assessment Score: 24 % Disability: 20.0000 CATSIB Score (Max score 120 seconds): 60 Lower Extremity Functional Score: 34 30 Second Chair Rise Test Seconds: 11 - Goals Goal 1:: Walk WVM without fatigue. Goal Time Frame: 4-6 Weeks Goal 2:: patient I in HEP to address strength adn balance deficits Goal Time Frame: 4-6 Weeks Goal 3:: Pt feel 50% better in overall mobility Goal Time Frame: 4-6 Weeks Goal 4:: Able to get off floor I Goal Time Frame: 4-6 Weeks Goal 5:: Steps reciprocally with one rail without hesitation due to weakness. Goal Time Frame: 4-6 Weeks - Rehabilitation Potential Physical Therapy Diagnosis: weakness. Rehabilitation Potential: Good - Anticipated Interventions Patient/Client Instruction: Educate patient on: Condition, Plan of Care For the Purpose of:: To increase ROM, To improve nutrient delivery to tissue, To improve muscle performance and motor function, To increase tolerance to activity/condition/position, To improve ability of physical actions for home/community/work/leisure Therapeutic Exercise to Include: Strength training, Balance training, Postural training, Flexibilty training For the Purpose of:: To increase ROM, To improve nutrient delivery to tissue, To improve muscle performance and motor function, To increase tolerance to activity/condition/position, To improve ability of physical actions for home/community/work/leisure Thank you for the opportunity to evaluate your patient. For Medicare and Medicare HMO plans, please review the plan of care and approve it. It will need to be FAXED BACK to us at [phone] for Medicare purposes. For Medicare only, by signing this I certify the plan of care. Please let me know if there are questions or concerns regarding this plan of care. Physician Signature: Date:
--- NOTE | 2023-01-05 14:07 | HP.PT.NRP ---
FAVIO HE was seen in my office for initial evaluation on 10/31/22. The following Plan of Care was established for this patient: Initial Frequency: 3x /Week Initial Duration: 4-6 Weeks Patient/Client Instruction: Educate patient on: Condition, Plan of Care For the Purpose of:: To increase ROM, To improve nutrient delivery to tissue, To improve muscle performance and motor function, To increase tolerance to activity/condition/position, To improve ability of physical actions for home/community/work/leisure Therapeutic Exercise to Include: Strength training, Balance training, Postural training, Flexibilty training For the Purpose of:: To increase ROM, To improve nutrient delivery to tissue, To improve muscle performance and motor function, To increase tolerance to activity/condition/position, To improve ability of physical actions for home/community/work/leisure This patient was last seen in our office 11/12/22. Pertinent comments regarding their Physical therapy will appear below: Pt seen for 5 visits of POC but then did not attend any further. was on hospice at her last visit. At this point it has been over 6 weeks and I will discontinue her from my care. At this point I will be discontinuing this patient from physical therapy. I would be happy to see this patient again in the future if found appropriate by the physician. Thank you! Jose Juan Rider, DPT, OCS, CSCS Balance/Gait/Functional tests - Balance/Special Test Scores Functional Gait Assessment Score: 24 % Disability: 20.0000 CATSIB Score (Max score 120 seconds): 60 Lower Extremity Functional Score: 34 Tug Test: <20 sec.=mostly independent 30 Second Chair Rise Test Seconds: 11
== END 2022-11-12 19:00 | disposition home or self-care (01) ==
LOC: PT 14:30
PROVIDERS: PCP Internal Medicine; Referring Provider Internal Medicine; Visit Provider Internal Medicine
DX: R53.1 Weakness (principal)
CPT/HCPCS: 97110; 97162

== ENCOUNTER → 2023-01-07 | Outpatient (CLI) | payer MEDICARE, SELFPAY ==
--- NOTE | 2023-01-07 13:10 | VDLE_ITS ---
Reason For Study: edema RIGHT LEFT CFV is compressible, spontaneous, phasic, GSV is normal. competent and demonstrates normal CFV is compressible, spontaneous, phasic, augmentation. competent, and demonstrates normal FV is compressible, spontaneous, phasic, augmentation. competent and demonstrates normal FV is compressible, spontaneous, phasic, augmentation. competent and demonstrates normal POP V is compressible, spontaneous, phasic, augmentation. competent and demonstrates normal POP V is compressible, spontaneous, phasic, augmentation. competent and demonstrates normal T/P Trunk is compressible. augmentation. PTV is compressible. T/P Trunk is compressible. RT PerV is compressible. PTV is compressible. GSV is absent. LT PerV is compressible. Procedure Heterogeneous area behind the knee measuring This is a venous duplex using B-mode, color 2.11 x 5.12 cm in short. Area is nonvascular. flow and spectral Doppler. Exam performed in department. The exam was diagnostic. A preliminary report was called and/or faxed to Dr. Ojeda. VL/Venous Duplex US - Devin Extrem Interpretation Summary Deep veins of the lower extremities are bilaterally patent and compressible seg mentally. There is no evidence of deep vein thrombosis on either side. Valvular competence appears in tact within the proximal deep venous systems bilaterally. The right great saphenous vein is abs ent. The left great saphenous vein is patent and compressible. A non-vascular, heterogeneous struct ure is noted in the left popliteal space, measuring 2.11 cm x 5.12 cm. This probably represents a p opliteal cyst. Clinical correlation is advised. Ordering Physician: Gini Ojeda Performed By: Scott Davis RVT
== END | disposition home or self-care (01) ==
LOC: CVS 13:08
PROVIDERS: PCP Internal Medicine; Referring Provider Internal Medicine; Visit Provider Internal Medicine
DX: R60.0 Localized edema (principal)
CPT/HCPCS: 93970

== ENCOUNTER → 2023-01-29 | Outpatient (CLI) | payer MEDICARE, SELFPAY ==
--- NOTE | 2023-01-29 08:51 | US_ITS ---
PROCEDURE: ABDOMINAL ULTRASOUND, RIGHT UPPER QUADRANT COMPARISONS: None. CLINICAL INDICATION: FATTY LIVER TECHNIQUE: Real-time martini-scale abdominal ultrasound. Limited color Doppler evaluation is performed. FINDINGS: Liver: Enlarged to 23 cm with diffusely increased echotexture. Appropriate hepatopetal flow is present in the main portal vein. Gallbladder: Surgically absent. Biliary Tree: Nondilated. Common bile duct measures 9 mm. Pancreas: Limited evaluation of the head and body is unremarkable. Right kidney: Normal in size and echogenicity. No hydronephrosis or stones. The right kidney measures 13.0 cm in long axis. No free fluid. US/Liver IMPRESSION: Hepatomegaly with diffuse fatty infiltration of the liver. Electronically Signed: Maik Adames MD at 20:29 EDT ,
--- NOTE | 2023-01-30 10:29 | PFT ---
INTRODUCTION: The patient is a 77-year-old female that presents for pulmonary function studies secondary to a diagnosis of dyspnea. Respiratory therapy reported good patient effort. Bronchodilators were used during testing. INTERPRETATION: Forced expiration spirometry demonstrates the presence of a moderate large airways obstructive ventilatory defect. There was no significant response to aerosolized bronchodilators. Spirograms are of good quality and plateau gradually indicating slow emptying of the lungs. Body plethysmography was performed and revealed an elevated RV to 133% of predicted, indicative of underlying air trapping. Diffusing capacity by single breath CO was within normal limits. IMPRESSION: Irreversible moderate large airways obstructive ventilatory defect with associated air trapping.
== END | disposition home or self-care (01) ==
LOC: US 08:49
PROVIDERS: PCP Internal Medicine; Referring Provider Internal Medicine; Visit Provider Internal Medicine
DX: K76.0 Fatty (change of) liver, not elsewhere classified (principal); I48.91 Unspecified atrial fibrillation; R06.09 Other forms of dyspnea
CPT/HCPCS: 76705; 93005; 94060; 94726; 94729

== ENCOUNTER → 2023-02-10 | Outpatient (CLI) | payer MEDICARE, SELFPAY ==
[2023-02-10 12:51] LABS: BNP,B-Type NATRIURETIC PEPTIDE 203.9 pg/mL (0-100)
[2023-02-10 13:02] LABS: Anion Gap 6 (5-15); BUN 16 mg/dL (7-18); BUN/Creat Ratio 24.7 RATIO (10-20); Calcium,Total 9.4 mg/dL (8.5-10.1); Chloride 109 mmol/L (98-107); Creatinine, Serum 0.65 mg/dL (0.55-1.02); EST Glomerular Filtration Rate 93 mL/min (>60); Est Glom Filt Rate - Afr Amer 113 mL/min (>60); Glucose 99 mg/dL (74-106); Potassium 4.2 mmol/L (3.5-5.1); Sodium Level 142 mmol/L (136-145)
== END | disposition home or self-care (01) ==
LOC: LAB 11:25
PROVIDERS: PCP Internal Medicine; Referring Provider Nurse Practitioner Gerontology; Visit Provider Nurse Practitioner Gerontology
DX: R06.09 Other forms of dyspnea (principal); I48.91 Unspecified atrial fibrillation
CPT/HCPCS: 36415; 80048; 83880

== ENCOUNTER → 2023-02-17 | Outpatient (CLI) | payer MEDICARE, SELFPAY ==
[2023-02-17 12:14] LABS: Anion Gap 5 (5-15); BUN 16 mg/dL (7-18); BUN/Creat Ratio 23.6 RATIO (10-20); Calcium,Total 9.2 mg/dL (8.5-10.1); Chloride 107 mmol/L (98-107); Creatinine, Serum 0.68 mg/dL (0.55-1.02); EST Glomerular Filtration Rate 89 mL/min (>60); Est Glom Filt Rate - Afr Amer 107 mL/min (>60); Glucose 107 mg/dL (74-106); Potassium 3.7 mmol/L (3.5-5.1); Sodium Level 143 mmol/L (136-145)
== END | disposition home or self-care (01) ==
LOC: LAB 11:02
PROVIDERS: PCP Internal Medicine; Referring Provider Nurse Practitioner Gerontology; Visit Provider Nurse Practitioner Gerontology
DX: R06.09 Other forms of dyspnea (principal)
CPT/HCPCS: 36415; 80048

== ENCOUNTER → 2023-02-18 | Outpatient (CLI) | payer MEDICARE, SELFPAY ==
--- NOTE | 2023-02-18 09:56 | ECHOCS_ITS ---
Reason For Study: Afib/Flutter Procedure This was a 2D Doppler, Color Flow transthoracic echocardiogram. The study was technically difficult. Contrast injection was performed. Exam performed in department. Left Ventricle Normal LV size. Left ventricular systolic function is normal. The estimated ejection fraction is 55 %. No regional wall motion abnormalities noted. Right Ventricle Normal RV size. Normal systolic function. Atria Normal left atrium. Normal right atrium. Mitral Valve Normal mitral valve. Tricuspid Valve Normal tricuspid valve. Mild tricuspid valve insufficiency. Pulmonary artery systolic pressure is 33 mmHg. Aortic Valve Trisinus/trileaflet aortic valve. Pulmonic Valve The pulmonic valve is not well visualized. Great Vessels Normal aortic root. The pulmonary is not well visualized. Normal inferior vena cava. Pericardium/Pleural No pericardial effusion. Medication 22 gauge I.V. with prn adaptor inserted into left arm. Diluted definity 3ml given slow IV push to enhance endocardial definition. MMode/2D Measurements & Calculations LVIDd: 4.4 cm IVSd: 0.64 cm Ao root diam: 3.1 cm LVIDs: 2.8 cm LVPWd: 0.85 cm LA dimension: 3.8 cm RVDd: 3.6 cm FS: 35.5 % LAV(MOD-bp): 59.6 ml LA A4 area: 18.7 cm2 RA A4 area: 17.0 cm2 LAV(MOD-bp) Indexed: 28.2 ml/m2 LAV(MOD-sp2): 65.7 ml LAV(MOD-sp4): 51.0 ml Time Measurements MV dec time: 0.18 sec Doppler Measurements & Calculations MV E max helena: 124.2 cm/sec MV V2 max: 123.1 cm/sec Ao V2 max: 134.1 cm/sec MV max P.1 mmHg Ao max P.2 mmHg MV V2 mean: 67.3 cm/sec Ao V2 mean: 95.3 cm/sec MV mean P.2 mmHg Ao mean P.1 mmHg MV V2 VTI: 23.9 cm Ao V2 VTI: 26.8 cm AV (velocity ratio): 0.73 LV V1 max: 97.5 cm/sec MR max helena: 504.4 cm/sec PA V2 max: 100.1 cm/sec LV V1 max P.8 mmHg MR max P.8 mmHg PA V2 mean: 71.9 cm/sec LV V1 mean P.1 mmHg MR mean helena: 413.2 cm/sec LV V1 mean: 67.5 cm/sec MR mean P.4 mmHg LV V1 VTI: 19.5 cm MR VTI: 154.9 cm TR max helena: 265.7 cm/sec TR max P.2 mmHg ECHO/Echo Complete W/ Contrast Interpretation Summary Normal LV size. Left ventricular systolic function is normal. The estimated ejection fraction is 55 %. Pulmonary artery systolic pressure is 33 mmHg. Contrast injection was performed. Ordering Physician: Cherri Velasco Referring Physician: Gini Ojeda D.O. Performed By: Damion Montero RCS
== END | disposition home or self-care (01) ==
LOC: PSN 09:56
PROVIDERS: PCP Internal Medicine; Referring Provider Nurse Practitioner Gerontology; Visit Provider Nurse Practitioner Gerontology
DX: I48.0 Paroxysmal atrial fibrillation (principal)
CPT/HCPCS: 93306; Q9957; A4216; C8929

== ENCOUNTER → 2023-02-19 | Outpatient (CLI) | payer MEDICARE, SELFPAY | END | disposition home or self-care (01) | LOC: PSN 11:56 | PROVIDERS: PCP Internal Medicine; Referring Provider Nurse Practitioner Gerontology; Visit Provider Nurse Practitioner Gerontology | DX: I48.91 Unspecified atrial fibrillation (principal) | CPT/HCPCS: 93225; 93226 ==

== ENCOUNTER → 2023-04-08 | Outpatient (CLI) | payer MEDICARE, SELFPAY ==
--- NOTE | 2023-04-08 11:59 | US_ITS ---
STUDY: THYROID ULTRASOUND REASON FOR EXAM: Female, 78 years old. Multiple thyroid nodules TECHNIQUE: Ultrasound evaluation of the thyroid was performed with real-time and static martini-scale imaging. COMPARISON: Comparison is made with prior study dated October 02, 2022. FINDINGS: RIGHT LOBE: The right lobe of the thyroid gland is enlarged and measures 5.5 cm x 2.1 cm x 2 cm. There is a homogeneous echotexture. 2 solid nodules are seen. The larger nodule measures 1.4 cm x 1.2 cm x 1.3 cm. This is in the lower pole. A smaller hypoechoic solid nodules also seen in the mid upper pole. This measures 4 mm x 4 mm x 3 mm. There is essentially no change. LEFT LOBE: The left lobe of the thyroid gland is enlarged and measures 5.4 cm x 1.9 cm x 1.9 cm. There is a homogeneous echotexture. Stable solid partially calcified nodule measuring 1.4 cm x 1 cm x 1.1 cm in the upper pole. There is also evidence of a calcified nodule measuring 8 mm x 7 mm x 7 mm as well as a 5 mm x 6 mm x 4 mm solid nodule which is partially calcified. ISTHMUS: The isthmus measures 4 mm. The regional lymph nodes are normal. US/Thyroid IMPRESSION: Stable examination. Bilateral solid nodules seen Electronically Signed: Wellington Fontaine MD at 14:10 EDT ,
== END | disposition home or self-care (01) ==
LOC: US 11:58
PROVIDERS: PCP Internal Medicine; Referring Provider Surgery; Visit Provider Surgery
DX: E04.2 Nontoxic multinodular goiter (principal)
CPT/HCPCS: 76536

== ENCOUNTER → 2023-05-07 | Outpatient (CLI) | payer MEDICARE, SELFPAY ==
--- NOTE | 2023-05-07 15:00 | RAD_ITS ---
EXAM: XR CHEST, 2 VIEWS CLINICAL INDICATION: Cardioversion TECHNIQUE: Frontal and lateral views of the chest. COMPARISON: 09/01/2022. FINDINGS: LUNGS AND PLEURAL SPACES: Unremarkable. No consolidation or edema. No pneumothorax. No effusion. HEART: Unremarkable. Cardiac silhouette not enlarged. MEDIASTINUM: Central airways and mediastinal contour are unremarkable. BONES/JOINTS: Right total reverse shoulder arthroplasty. Components appear well seated. SOFT TISSUES: Unremarkable. RAD/Chest PA and Lateral IMPRESSION: No acute cardiopulmonary abnormality. Electronically Signed: Alo Florentino MD at 0:55 EDT ,
[2023-05-07 15:56] LABS: Anion Gap 5 (5-15); BUN 9 mg/dL (7-18); BUN/Creat Ratio 13.2 RATIO (10-20); Calcium,Total 9.3 mg/dL (8.5-10.1); Chloride 106 mmol/L (98-107); Creatinine, Serum 0.68 mg/dL (0.55-1.02); EST Glomerular Filtration Rate 88 mL/min (>60); Est Glom Filt Rate - Afr Amer 107 mL/min (>60); Glucose 99 mg/dL (74-106); Potassium 3.8 mmol/L (3.5-5.1); Sodium Level 141 mmol/L (136-145)
[2023-05-07 16:05] LABS: BNP,B-Type NATRIURETIC PEPTIDE 216.8 pg/mL (0-100)
== END | disposition home or self-care (01) ==
LOC: RAD 14:55
PROVIDERS: PCP Internal Medicine; Referring Provider Nurse Practitioner Gerontology; Visit Provider Nurse Practitioner Gerontology
DX: I48.0 Paroxysmal atrial fibrillation (principal); R06.09 Other forms of dyspnea
CPT/HCPCS: 36415; 71046; 80048; 83880

== ENCOUNTER 2023-05-25 11:02 | Day surgery (SDC) | payer MEDICARE, SELFPAY ==
[2023-05-19 16:52] LABS: Anion Gap 8 (5-15); BUN 18 mg/dL (7-18); BUN/Creat Ratio 23.1 RATIO (10-20); Calcium,Total 9.6 mg/dL (8.5-10.1); Chloride 104 mmol/L (98-107); Creatinine, Serum 0.78 mg/dL (0.55-1.02); EST Glomerular Filtration Rate 76 mL/min (>60); Est Glom Filt Rate - Afr Amer 92 mL/min (>60); Glucose 107 mg/dL (74-106); Potassium 3.2 mmol/L (3.5-5.1); Sodium Level 141 mmol/L (136-145)
[2023-05-22 08:46] VITALS: BMI 36.9
--- NOTE | 2023-05-25 12:32 | PCM.OP.PRO ---
Procedure Report Date of Procedure: 05/25/23 DC cardioversion. 78-year-old lady with a history of postoperative atrial fibrillation. Patient had been on uninterrupted anticoagulation and was brought for DC cardioversion. Patient was brought to cardiac catheterization lab in the postabsorptive nonsedated state. Informed consent was obtained. The patient was seen by Dr. Cardenas of the critical care division. Anterior-posterior pads were applied. 200 J of biphasic DC cardioversion energy were applied with prompt reversal to sinus rhythm. Patient tolerated the procedure well. Conclusion: Continue current medication Discontinue diltiazem. Follow-up as per office protocol.
--- NOTE | 2023-05-25 13:20 | PCM.OP.PRO ---
Procedure Report Date of Procedure: 05/25/23 CONSCIOUS SEDATION REPORT BRIEF HISTORY OF PRESENT ILLNESS: The patient is an 78-year-old female who presented to [facility] for an elective outpatient cardioversion due to underlying atrial fibrillation. The patient reports no PO intake since midnight, but is currently therapeutic on anticoagulation. The patient does have a history of mild COPD and asthma. The patient reports no previous cardioversions. The patient denies any recent constitutional symptoms such as fevers, chills, nausea or vomiting. The patient denies previous applicable anesthetic complications. Patient did take Eliquis on the day of the procedure. Patient had a last known ejection fraction of 55% PHYSICAL EXAMINATION: VITAL SIGNS: Reviewed and were acceptable. GENERAL: The patient is a female, in no apparent distress, speaking in full sentences. HEENT: Normocephalic, atraumatic. Mucous membranes are moist and pink. Good mouth opening noted. Trachea is midline. Good neck mobility. MP II CHEST: S1, S2 irregularly irregular. No murmurs, rubs or gallops were noted. LUNGS: Clear to auscultation bilaterally without appreciable wheezes, rales or rhonchi. ABDOMEN: Soft, nontender, nondistended. Positive bowel sounds. EXTREMITIES: There is no clubbing, cyanosis or edema. ASA Class: II DESCRIPTION OF PROCEDURE: After confirmation of informed consent, the patient's anesthesia plan was reviewed in detail. Propofol was chosen. Risks and benefits were reviewed and the patient agreed to proceed. At 12:27 PM, the patient was given 40 mg of propofol. The patient achieved an appropriate level of sedation and received 1 attempt synchronized cardioversion, at [address] Roberts at the bedside. This was successful in achieving normal sinus rhythm. The patient was monitored until 12:42 PM, at which time the patient reached their baseline mental status and function. The patient tolerated the procedure well. COMPLICATIONS: None ESTIMATED BLOOD LOSS: None RECOMMENDATIONS: Okay to recover in usual fashion. Procedures Pulmonary 9xxxx: [id number] Con Sedation
== END 2023-05-25 13:30 | disposition home or self-care (01) ==
LOC: CLSP 11:03
PROVIDERS: Nurse Practitioner Gerontology; PCP Internal Medicine; Referring Provider Internal Medicine Cardiovascular Disease; Visit Provider Internal Medicine Cardiovascular Disease
DX: I48.0 Paroxysmal atrial fibrillation (principal); K76.0 Fatty (change of) liver, not elsewhere classified; E78.5 Hyperlipidemia, unspecified; J45.909 Unspecified asthma, uncomplicated; E55.9 Vitamin D deficiency, unspecified; I10 Essential (primary) hypertension; Z79.01 Long term (current) use of anticoagulants; Z79.899 Other long term (current) drug therapy
CPT/HCPCS: 36415; 80048; 92960; 93005; J7040

== ENCOUNTER → 2023-06-02 | Outpatient (CLI) | payer MEDICARE, SELFPAY ==
[2023-06-02 13:01] LABS: Anion Gap 6 (5-15); BUN 15 mg/dL (7-18); BUN/Creat Ratio 19.8 RATIO (10-20); Calcium,Total 9.4 mg/dL (8.5-10.1); Chloride 102 mmol/L (98-107); Creatinine, Serum 0.76 mg/dL (0.55-1.02); EST Glomerular Filtration Rate 78 mL/min (>60); Est Glom Filt Rate - Afr Amer 94 mL/min (>60); Glucose 124 mg/dL (74-106); Sodium Level 141 mmol/L (136-145)
== END | disposition home or self-care (01) ==
PROVIDERS: PCP Internal Medicine; Referring Provider Internal Medicine Cardiovascular Disease; Visit Provider Internal Medicine Cardiovascular Disease
DX: E87.6 Hypokalemia (principal)
CPT/HCPCS: 36415; 80048

== ENCOUNTER → 2023-06-17 | Outpatient (CLI) | payer MEDICARE, SELFPAY ==
[2023-06-17 16:09] LABS: Anion Gap 6 (5-15); BUN 14 mg/dL (7-18); BUN/Creat Ratio 20.6 RATIO (10-20); Calcium,Total 9.7 mg/dL (8.5-10.1); Chloride 104 mmol/L (98-107); Creatinine, Serum 0.68 mg/dL (0.55-1.02); EST Glomerular Filtration Rate 89 mL/min (>60); Est Glom Filt Rate - Afr Amer 107 mL/min (>60); Glucose 110 mg/dL (74-106); Potassium 3.6 mmol/L (3.5-5.1); Sodium Level 140 mmol/L (136-145)
== END | disposition home or self-care (01) ==
LOC: LAB 14:19
PROVIDERS: Nurse Practitioner Gerontology; PCP Internal Medicine; Referring Provider Internal Medicine Cardiovascular Disease; Visit Provider Internal Medicine Cardiovascular Disease
DX: E87.6 Hypokalemia (principal)
CPT/HCPCS: 36415; 80048

== ENCOUNTER 2023-06-29 10:25 | Day surgery (SDC) | payer MEDICARE, SELFPAY ==
--- NOTE | 2023-06-03 08:25 | HP.PCM_ITS ---
History and Physical Date of Admission: 06/11/23 This is a peasant 78-year-old lady who presents for a cardioversion. Patient underwent a cardioversion on 05/25/2023. This was unsuccessful. Her 1 week post cardioversion EKG demonstrated atrial fibrillation. She was started on amiodarone 200 mg twice daily x1 week and then 200 mg daily. She has a previous history of hypertension, hyperlipidemia, and asthma who underwent ventral hernia and small bowel resection and at the conclusion of the procedure was noted to have gone into atrial fibrillation with a rapid ventricular response rate documented by electrocardiogram.? It actually demonstrated an atrial flutter rhythm with a rate of approximately 139 bpm.? She was placed on an anticoagulant in addition to the beta-moise and the calcium channel moise.? It appears that there is other pathology which was noted and she has been referred to a DOCTOR OF NATUROPATHIC MEDICINE oncologist.? In the meantime she underwent an echocardiographic evaluation which demonstrated preserved ejection fraction. She was recently asked by her PCP to follow with cardiology for her atrial fibrillation. Her recent Holter monitor demonstrated atrial fibrillation with an average heart rate of 85bpm. From a cardiac standpoint, the patient is doing well. She denies any palpitations, chest pain, pressure or heaviness. She denies SOB, Orthopnea, and PND. She does not have bleeding issues; no blood in urine, stool or nosebleeds. She does acknowledge fatigue. She denies myalgias, or claudication. She does have bilateral ankle edema. She denies sudden weight gain. She denies dizziness, lightheadedness, syncopal or near syncopal episodes, and headaches. She has not missed any doses of Eliquis. Intake Vital Signs See EMR Allergies See EMR Medications See EMR [facility] Medical History Anemia Asthma Atrial fibrillation with rapid ventricular response (10/12/20) Atrial flutter with rapid ventricular response (10/12/20) Bilateral carotid artery stenosis Calculus of gallbladder with chronic cholecystitis without obstruction Carpal tunnel syndrome, bilateral Cholelithiasis Chronic cholecystitis COPD (chronic obstructive pulmonary disease) Diarrhea Essential (primary) hypertension Fatty liver Hyperlipemia Loose, teeth Multiple thyroid nodules Non-smoker Nonrheumatic mitral valve stenosis with insufficiency Osteopenia Ovarian cancer Paresthesia Peritoneal carcinomatosis Psoriasis Right lower lobe pulmonary nodule Sciatica Shortness of breath on exertion Thyroid nodule Vitamin D deficiency Wears contact lenses Surgical History H/O nasal polypectomy History of cholecystectomy (10/23/17) History of colonoscopy History of exploratory laparotomy (10/2020) History of hernia repair (10/2020) History of hysterectomy with unilateral oophorectomy (1983) History of shoulder replacement (2019) Status post laser ablation of incompetent vein Family History Father CAD (coronary artery disease) DiabetesMother LymphomaSister Colon cancerBrother Colon cancer Social History Smoking Status: Never smoker second hand exposure: No alcohol intake: never details: rare substance use type: does not use caffeine: No what type of physical activity do you participate in: walking frequency: 3-4 times per week duration: < 15 minutes/day 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 [employer] seatbelt use: always do you feel safe at home: Yes ROS Const Const: Positive for fatigue; Negative for weakness, fever(s), headache(s), chills, frequent falls, weight gain or weight loss Eyes Eyes: Negative for blind spots, loss of peripheral vision, transient loss of vision, blurry vision, change in vision, double vision, floaters or tunnel vision ENT ENT: Negative for headache(s), dizziness, Nosebleed/epistaxis, balance problems or neck pain Cardio Chest Pain: No Palpitations: No Edema: Bilateral Muscle aches with walking: None Resp Respiratory: Negative for SOB with activity, SOB at rest or SOB orthopnea\SOB lying down GI GI: Negative nausea, vomiting, heartburn, bloating, vomiting blood/hematemesis, bright, red blood in stools or black,tarry stools Musc Musc: Negative for muscle aches/ myalgia, muscle weakness, joint pain or balance problems Neuro Neuro: Negative for dizziness, lightheadedness, near syncope, syncope, orthostatic symptoms, frequent falls, headache(s), weakness, blurry vision or double vision Clayton Hematologic/Lymphatic: Negative for easy bleeding or easy bruising Endo Endo: Positive for fatigue Cardiology Exam Const Appearance: cooperative and no acute distress Nutritional Appearance: average body habitus and obese Orientation: alert and oriented x3 Head Head: normal to inspection Ears: hearing grossly normal bilaterally Nose: external nose normal Face and Sinus: face symmetric Eyes General: appearance normal, both eyes and all related structures Eyelids: eyelids normal Conjunctivae: conjunctivae normal Pupils: PERRL and pupil size EOM: EOM intact bilaterally Neck Neck: normal visual inspection Carotids: Negative bruit Chest Chest inspection: normal inspection of the chest and normal respiratory effort Auscultation: Bilateral: Clear to Auscultation Cardio Palpation: normal PMI Rate: regular rate Rhythm: irregularly irregular Heart sounds: S1 normal and S2 normal; Negative rub, gallop or murmur GI GI: normal to inspection, soft and obese Neuro General: patient alert, patient oriented x3 and CN's II-XI intact bilaterally Skin Skin: no rashes or lesions noted Extremities Pulses: Normal: Right Posterior Tibial Pulse, Left Posterior Tibial Pulse, Right Radial Pulse and Left Radial Pulse Lower Extremity Edema: +2: Bilateral Psych Psychological: normal affect Supplemental Info Supplemental Information Echocardiogram 02/18/2023: Interpretation Summary Normal LV size. Left ventricular systolic function is normal. The estimated ejection fraction is 55 %. Pulmonary artery systolic pressure is 33 mmHg. Contrast injection was performed. Echocardiogram 10/13/2020: Interpretation Summary The estimated ejection fraction is 55 %. No evidence for diastolic dysfunction. Stress Test 05/06/2019: Procedure: Pharmacologic stress nuclear imaging study? ? Indications: Dyspnea on exertion ? Consent: Per the patient ? Procedure: ? The patient underwent pharmacologic (Regadenoson) evaluation with a peak heart rate of 113 beats per minute ([78]%predicted maximal heart rate) and a peak blood pressure of 158/70 mmHg. ? The baseline ECG demonstrated normal sinus rhythm, possible prior anterior UT.? EKG during lexiscan infusion revealed significant ischemic changes. EKG post infusion revealed no significant ischemic changes ? [There were no cardiac dysrhythmias pretest, during pharmacologic infusion, or recovery]. ? [There was no complaint of chest discomfort during pharmacologic infusion or recovery]. ? The examination was discontinued secondary to completion of protocol. ? Impression: ? 1.? Lexiscan stress test test is negative for Lexiscan infusion induced EKG changes of ischemia. 2.? Lexiscan stress test test is negative for Lexiscan infusion induced chest pain. 3.? Results of the nuclear portion of the test is as below ? Myocardial perfusion imaging study: ? Technique: ? The patient was injected with 14.7 millicuries of technetium 99m Cardiolite and subsequently rest SPECT Cardiolite nuclear imaging was obtained in the horizontal long, vertical long, and short axis views. The patient underwent pharmacologic (Regadenoson) evaluation.? Please see above for details. The patient was injected with 44.8 millicuries of technetium 99m Cardiolite and subs equently stress SPECT Cardiolite nuclear imaging was obtained in the horizontal long, vertical long, and short axis views.? A gated Cardiolite study at peak stress was obtained. ? Interpretation: ? Rest and stress SPECT Cardiolite nuclear imaging status post realignment, normalization, and attenuation correction demonstrate [normal myocardial radioisotope].? Gated images reveal no significant regional wall motion abnormalities.? The reported LVEF is greater than 70 %. ? Impression: ? 1.? There is no evidence of significant ischemia or infarction. 2.? Estimated ejection fraction is greater than 70%. Assessment and Plan Assessment and Plan (1) Paroxysmal atrial fibrillation: Status: Acute Plan: Patient has a history of atrial fibrillation. Her echocardiogram from 02/18/2023 demonstrated an ejection fraction of 55%, and normal atrial size. She underwent a cardioversion on 05/25/2023. This was unsuccessful. Her 1 week post cardioversion EKG demonstrated atrial fibrillation. She was started on amiodarone 200 mg twice daily x1 week and then 200 mg daily. She has not missed any doses of Eliquis. Would like to proceed with cardioversion.
[2023-06-26 08:16] VITALS: BMI 36.9
--- NOTE | 2023-06-29 11:56 | PRO.PCM_ITS ---
Procedure Report Date of Procedure: 06/29/23 DC cardioversion. 78-year-old lady with a history of persistent atrial fibrillation who presents for DC cardioversion. The patient has been anticoagulated for a minimum of 4 weeks. After informed consent was obtained the patient was seen by Dr. Perkins of the critical care division. Anterior-posterior pads were applied. The patient was administered 40 mg of intravenous propofol. 200 J of synchronized biphasic DC cardioversion energy were applied with prompt reversal to sinus rhythm. P atient then went back into atrial fibrillation briefly. Another 200 J of biphasic DC cardioversion energy were applied with prompt reversal to sinus rhythm patient remained in sinus rhythm. Conclusion: Successful DC cardioversion from atrial fibrillation to sinus rhythm. Follow-up as per office protocol.
--- NOTE | 2023-06-29 12:07 | PCM.OP.PRO ---
Procedure Report Date of Procedure: 06/29/23 CONSCIOUS SEDATION REPORT DATE OF SERVICE: June 29, 2023 BRIEF HISTORY OF PRESENT ILLNESS: The patient is an 78-year-old female who presented to [facility] for elective outpatient cardioversion due to a history of atrial fibrillation. The patient did undergo a prior cardioversion in May 2023, for which propofol was utilized for sedation. The patient denied any prior anesthetic complications. She is systemically anticoagulated on Eliquis. Her last surface echocardiogram demonstrated an ejection fraction of approximately 55%. PHYSICAL EXAMINATION: VITAL SIGNS: Reviewed and were acceptable. GENERAL: The patient is a female, in no apparent distress, speaking in full sentences. HEENT: Normocephalic, atraumatic. Mucous membranes are moist and pink. Good mouth opening noted. Trachea is midline. Good neck mobility. CHEST: S1, S2 irregularly irregular. No murmurs, rubs or gallops were noted. LUNGS: Clear to auscultation bilaterally without appreciable wheezes, rales or rhonchi. ABDOMEN: Soft, nontender, nondistended. Positive bowel sounds. EXTREMITIES: There is no clubbing, cyanosis or edema. ASA Class: II DESCRIPTION OF PROCEDURE: After confirmation of informed consent, the patient's anesthesia plan was reviewed in detail. Propofol was chosen. Risks and benefits were reviewed and the patient agreed to proceed. At 1150, the patient was given 40 mg of propofol. The patient achieved an appropriate level of sedation and was given a 200 joule synchronized cardioversion x [address] Roberts at the bedside. This was successful in achieving normal sinus rhythm. The patient was monitored until 1203, at which time she reached her baseline mental status and function. The patient tolerated the procedure well. COMPLICATIONS: None ESTIMATED BLOOD LOSS: None RECOMMENDATIONS: Okay to recover in usual fashion. Procedures Pulmonary 9xxxx: [id number] Con Sedation
== END 2023-06-29 12:59 | disposition home or self-care (01) ==
LOC: CLSP 10:26
PROVIDERS: PCP Internal Medicine; Referring Provider Internal Medicine Cardiovascular Disease; Visit Provider Internal Medicine Cardiovascular Disease
DX: I48.19 Other persistent atrial fibrillation (principal); E78.5 Hyperlipidemia, unspecified; I10 Essential (primary) hypertension; E55.9 Vitamin D deficiency, unspecified; Z79.01 Long term (current) use of anticoagulants; Z79.899 Other long term (current) drug therapy
CPT/HCPCS: 92960; 93005; J7040

== ENCOUNTER → 2023-07-01 | Outpatient (CLI) | payer MEDICARE, SELFPAY ==
[2023-07-01 15:13] LABS: BNP,B-Type NATRIURETIC PEPTIDE 330.3 pg/mL (0-100)
[2023-07-01 15:22] LABS: ALB/GLOB Ratio 0.9 RATIO (0.9-2.4); AST(SGOT) 16 U/L (15-37); Alanine Aminotransfer ALT/SGPT 34 U/L (13-56); Albumin, Serum 3.4 g/dL (3.2-5.0); Alkaline Phosphatase 43 U/L (45-117); Anion Gap 7 (5-15); BUN 15 mg/dL (7-18); BUN/Creat Ratio 19.9 RATIO (10-20); Calcium,Total 9.5 mg/dL (8.5-10.1); Chloride 103 mmol/L (98-107); Creatinine, Serum 0.75 mg/dL (0.55-1.02); EST Glomerular Filtration Rate 79 mL/min (>60); Est Glom Filt Rate - Afr Amer 95 mL/min (>60); Free T3 1.8 pg/mL (2.18-3.98); Globulin 3.7 g/dL (2.2-4.2); Glucose 120 mg/dL (74-106); Magnesium 2.3 mg/dL (1.6-2.6); Protein, Total 7.1 g/dL (6.4-8.2); Sodium Level 140 mmol/L (136-145); T4 Free Direct 1.09 ng/dL (0.76-1.46)
== END | disposition home or self-care (01) ==
LOC: MTLAB 14:20
PROVIDERS: PCP Internal Medicine; Referring Provider Internal Medicine; Visit Provider Internal Medicine
DX: I48.91 Unspecified atrial fibrillation (principal); R06.09 Other forms of dyspnea
CPT/HCPCS: 36415; 80053; 83735; 83880; 84439; 84443; 84481

== ENCOUNTER → 2023-07-15 | Outpatient (CLI) | payer MEDICARE, SELFPAY ==
[2023-07-15 14:12] LABS: ALB/GLOB Ratio 0.9 RATIO (0.9-2.4); AST(SGOT) 14 U/L (15-37); Alanine Aminotransfer ALT/SGPT 27 U/L (13-56); Albumin, Serum 3.3 g/dL (3.2-5.0); Alkaline Phosphatase 43 U/L (45-117); Anion Gap 4 (5-15); BUN 15 mg/dL (7-18); BUN/Creat Ratio 19.6 RATIO (10-20); Calcium,Total 9.3 mg/dL (8.5-10.1); Chloride 104 mmol/L (98-107); Creatinine, Serum 0.77 mg/dL (0.55-1.02); EST Glomerular Filtration Rate 77 mL/min (>60); Est Glom Filt Rate - Afr Amer 93 mL/min (>60); Globulin 3.7 g/dL (2.2-4.2); Glucose 114 mg/dL (74-106); Potassium 3.3 mmol/L (3.5-5.1); Sodium Level 140 mmol/L (136-145); Troponin-I HS 7 pg/mL (3.0-54.0)
[2023-07-15 14:20] LABS: BNP,B-Type NATRIURETIC PEPTIDE 287.7 pg/mL (0-100)
== END | disposition home or self-care (01) ==
LOC: LABSPEC 13:35
PROVIDERS: PCP Internal Medicine; Visit Provider Internal Medicine
DX: R06.02 Shortness of breath (principal)
CPT/HCPCS: 80053; 83880; 84484

== ENCOUNTER → 2023-08-07 | Outpatient (CLI) | payer MEDICARE, SELFPAY ==
--- NOTE | 2023-08-07 14:06 | VDLE_ITS ---
Reason For Study: PAIN SWELLING RIGHT GSV is normal. CFV is compressible, spontaneous, phasic, competent and demonstrates normal augmentation. FV is compressible, spontaneous, phasic, competent and demonstrates normal augmentation. POP V is compressible, spontaneous, phasic, competent and demonstrates normal augmentation. T/P Trunk is compressible. PTV is compressible. RT PerV is compressible. Procedure This is a venous duplex using B-mode, color flow and spectral Doppler. Exam performed in department. A preliminary report was called and/or faxed to DR. Ojeda @ [phone] @ 2:40 pm. VL/Venous Duplex US, Unilateral Interpretation Summary Deep veins of the right lower extremity are patent and compressible segmentally . There is no evidence of right lower extremity deep vein thrombosis. The right great sapheno us vein appears patent and compressible segmentally. Ordering Physician: Gini Ojeda Referring Physician: Gini Ojeda Performed By: Earlene Brewer, JYOTHI, RVT
== END | disposition home or self-care (01) ==
LOC: CVS 14:05
PROVIDERS: PCP Internal Medicine; Referring Provider Internal Medicine; Visit Provider Internal Medicine
DX: M79.89 Other specified soft tissue disorders (principal)
CPT/HCPCS: 93971

== ENCOUNTER → 2023-08-19 | Outpatient (CLI) | payer MEDICARE, SELFPAY ==
[2023-08-19 11:11] LABS: Absolute Lymphocyte Count 2.62 X10^3/uL (0.83-4.51); Absolute Neutrophil Count 9.6 X10^3/uL (2.0-7.7); Basophil# 0.06 X10^3/uL; Basophil% 0.4 % (0-1); Eosinophil# 0.17 X10^3/uL; Eosinophils% 1.2 % (0-5); Hematocrit 37.8 % (37-47); Hemoglobin 11.7 g/dL (12.0-15.0); Lymphocyte # 2.62 X10^3/ul (0.83-4.51); Lymphocyte % 18.9 % (19-41); Mean Corpuscular Volume 90.4 fL (81-99); Mean Platelet Vol. 9.5 fl (6.2-12.0); Monocyte# 1.36 X10^3/uL; Monocyte% 9.8 % (0-10); NRBC Flagged by Analyzer 0 % (0-5); Neutrophil # 9.59 X10^3/uL (2.7-7.7); Neutrophil % 69.1 % (47-70); Platelet Count 414 K/mm3 (150-450); RBC Distribution Width CV 16.3 % (11.6-14.6); RBC Distribution Width SD 53.7 fl (35.1-43.9); Red Blood Count 4.18 M/mm3 (4.2-5.4); White Blood Count 13.9 K/mm3 (4.4-11.0)
[2023-08-19 11:29] LABS: ALB/GLOB Ratio 1.2 RATIO (0.9-2.4); AST(SGOT) 20 U/L (15-37); Alanine Aminotransfer ALT/SGPT 22 U/L (13-56); Albumin, Serum 3.5 g/dL (3.2-5.0); Alkaline Phosphatase 49 U/L (45-117); Anion Gap 11 (5-15); BUN 18 mg/dL (7-18); BUN/Creat Ratio 21.4 RATIO (10-20); Calcium,Total 8.4 mg/dL (8.5-10.1); Chloride 100 mmol/L (98-107); Creatinine, Serum 0.84 mg/dL (0.55-1.02); EST Glomerular Filtration Rate 69 mL/min (>60); Est Glom Filt Rate - Afr Amer 84 mL/min (>60); Globulin 2.9 g/dL (2.2-4.2); Glucose 109 mg/dL (74-106); Potassium 3.3 mmol/L (3.5-5.1); Protein, Total 6.4 g/dL (6.4-8.2); Sodium Level 141 mmol/L (136-145)
== END | disposition home or self-care (01) ==
LOC: LABSPEC 11:03
PROVIDERS: PCP Internal Medicine; Referring Provider Internal Medicine; Visit Provider Internal Medicine
DX: K62.5 Hemorrhage of anus and rectum (principal); R60.0 Localized edema; R06.09 Other forms of dyspnea
CPT/HCPCS: 80053; 83880; 85025

== ENCOUNTER → 2023-08-26 | Outpatient (CLI) | payer MEDICARE, SELFPAY ==
--- NOTE | 2023-08-26 11:12 | BI_ITS ---
MAMMOGRAPHY - BILATERAL SCREENING 3-D TOMOSYNTHESIS REASON FOR EXAM: Female, 78 years old. Routine annual screening mammogram. PERTINENT HISTORY: History of prior left stereotactic biopsies. TECHNIQUE: 2-D mammograms and 3-D Tomosynthesis of the breast (s) were performed. CAD was performed. COMPARISON: August 19, 2022, July 22, 2021 FINDINGS: Stable scattered fibroglandular densities. Scattered benign calcifications unchanged. No dominant masses, suspicious microcalcifications, asymmetries, skin thickening or nipple retraction. BI/SCRN MAMM (CAD)W/JASPER BILAT IMPRESSION: No interval change and no mammographic signs of malignancy. Routine yearly mammogram recommended. ASSESSMENT CATEGORY: BIRADS Category 2: Benign. A letter regarding these results will be sent to the patient by the facility within 30 days. FOLLOW UP RECOMMENDATION: Yearly follow up mammogram recommended. (A) Approximately 10% of breast cancers are not detected by mammography. A normal mammogram should not delay biopsy of a clinically suspicious abnormality. Electronically Signed: Danial Schumacher MD at 14:16 EST ,
== END | disposition home or self-care (01) ==
LOC: OPBI 10:59
PROVIDERS: PCP Internal Medicine; Referring Provider Internal Medicine; Visit Provider Internal Medicine
DX: Z12.31 Encounter for screening mammogram for malignant neoplasm of breast (principal)
CPT/HCPCS: 77063; 77067

== ENCOUNTER 2023-08-27 05:15 | Day surgery (SDC) | payer MEDICARE, SELFPAY ==
[2023-08-27] VITALS (7 sets, daily range): BP systolic 99–130; BP diastolic 56–69; PULSE 60–68; RESP 14–16; TEMP 36.3–37.3; O2SAT 95–100; BMI 35.6
[2023-08-27] MEDS: Lactated Ringers 1,000 ML 15 ML IV (05:58)
--- NOTE | 2023-08-27 06:29 | HP.PCM_ITS ---
History and Physical Date of Admission: 08/27/23 FAVIO HE, is a 78 F who presents to the office today for follow up. *[facility] established 06.20.21 to establish care. History of SBO requiring emergent laparotomy and removal of adhesions. 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 With involvement of small bowel, peritoneal carcinomatosis, fallopian tubes, ovaries, omentum and colon for which she is established with Dr. Major. Following resection she has been having difficulty with diarrhea.? Contact 06.26.21?start cholestyramine, ended 10.14.21? CT of chest 07.23.21?at [facility] found resolution of previously mentioned cavitary nodule in posterior left upper lobe. Other nodules on bilateral lungs stable measuring up to 1.2cm CT of abd/pel 07.23.21?at [facility] found diffuse fatty infiltration of the liver. Diverticula in the colon without evidence of acute diverticulitis. Stable 5mm nodule in anterior RUQ of peritoneum with stable irregular nodular opacities in anterior LUQ. Colonoscopy 07.16.21?finding severe diverticulosis in left colon. Congested mucosa in sigmoid colon. Sigmoid biopsy ? metastatic carcinoma consistent with ovarian primary. Positive tumor markers include AE1-2, CK7, CK8, CA125, P53.? 08.05.21?Start budesonide 6mg? US abd 1..?liver measures 18.3cm with fatty infiltration and a stiffness of 8kPa equaling f2 Metavir Scale.? OV 10.14.21?reduce budesonide to 3mg r/t cost; start Lomotil QHS. Stop routine cholestyramine.? OV 4.6?continue budesonide 3mg and Lomotil QHS? OV 516?continue budesonide to 3mg r/t cost and use Lomotil QHS.? OV 8..?continue budesonide 3mg and start Lomotil BID and PRN cholestyramine.? OV 11.09.21?continue budesonide 3mg QAM; increase Lomotil to BID. Start ursodiol and vit E. ? Favio did not continue Lomotil BID as she has increased abdominal discomfort and returned to QD.? 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 ? OV 06.11.23 Pt reports she is doing a little better since last visit. Still has diarrhea with episodes of post prandial urgency. Takes Budesonide 3mg qd and Lomotil qd which is helpful. Some abdominal pain. Recently she has been experiencing some lower GI bleeding. An annual scope exam done by her primary care physician and did not reveal any hemorrhoidal tissue, fissure. ROS Const Constitutional: Positive for fatigue ENT ENT: No difficulty swallowing Gastro GI: Positive for bloating, change in bowel habits, diarrhea and excessive flatus; No abdominal pain, belching, change in stool character, coffee ground emesis, constipation, cramping, heartburn, difficulty swallowing, feeling full early, incontinent of stools, Vomiting blood/hematemesis, Blood in stool, loose stools, Black,tarry stools, nausea/dyspepsia, pain with swallowing, vomiting or other Musc Musculoskeletal: Positive for abnormal gait; No joint pain Skin Skin: No yellowing of the eye or itchy eyes Neuro Neurology: Positive for abnormal gait Psych Psychiatric: Positive for anxiety and No depression Endo Endocrine: Positive for fatigue Aller/Imm Allergy/Immunologic: No itchy eyes Clayton/Lymp Hematologic/Lymphatic: No easy bleeding or easy bruising Exam Const General: cooperative, healthy appearing and no acute distress Nutritional Appearance: average body habitus Orientation: alert, awake and oriented x3 HENMT Head: normal to inspection Ears: hearing grossly normal bilaterally, external ears normal, TM's normal bilaterally (Except partial cerumen impaction left ear) and EAC's normal Nose: external nose normal, nares normal, septum normal and no nasal discharge Face and sinus: normal facial exam, sinuses nontender and face symmetric Mouth: oral mucosae normal, lip normal, tongue normal and oropharynx normal Throat: posterior oropharynx normal, tonsils normal, uvula midline and no postnasal drainage Eyes General: appearance normal, both eyes and all related structures Neck Neck: normal visual inspection, full ROM, no lymphadenopathy, no meningeal signs and supple Neck mass: No Thyroid: thyroid normal Lymphatic: no lymphadenopathy noted Chest Chest palpation & inspection: normal inspection of the chest Resp Effort & Inspection: normal respiratory effort and able to speak in complete sentences Auscultation: Bilateral: Clear to Auscultation Cardio Palpation: normal PMI Rate: tachycardic Rhythm: abnormal rhythm irregularly irregular Heart Sounds: S1 normal, S2 normal, no gallops, no murmurs and no rubs Pulses: radial pulses present GI Inspection: normal to inspection Skin General: no rashes or lesions noted Neuro General: patient alert, patient awake, patient oriented x3 and gait normal Cognition: normal cognition Speech: speech normal Gait: normal gait Motor: muscle tone normal throughout Sensory Exam: no sensory deficits noted Extrem General: normal to inspection Psych Appearance: grossly normal Mental Status: mental status grossly normal Mood: congruent mood Affect: normal affect Speech and Movement: speech and movement normal Attitude: cooperative Thought Process: normal Thought Content: normal Judgment: judgment good Quality Reporting Tobacco Screening ([facility] 138) Smoking Status: Never smoker Assessment and Plan Assessment and Plan (1) Diarrhea: Status: Chronic Qualifiers: Diarrhea type: functional diarrhea Qualified Code(s): 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 She will let me know if that is an effective regimen. Since budesonide is expensive she prefers not to increase dose. f/u 4 mos. (2) Steatosis: Status: Chronic (3) NAFLD (nonalcoholic fatty liver disease): Status: Acute (4) lower GI bleeding-the differential diagnosis for lower GI bleeding does include progression of already known peritoneal carcinomatosis from gynecologic malignancy. She will undergo colonoscopy for evaluation of her lower GI tract. She was explained alternatives, risk, benefits include not withstanding bleeding, infection, sepsis, perforation, need for emergent surgery and . She will have an ASA of 3. Plan: Never rx'd ursodiol and vit E She will work on weight loss Can f/u at next appt Medications: New colestipol 1 g PO ONCE 60 tabs 3RF I have examined the patient and the H&P has been reviewed. There are no clinical changes since date of exam.
--- NOTE | 2023-08-27 06:30 | COLBX_PTH ---
PATHOLOGY RESULTS PATIENT: FAVIO HE LOC: EN U#:[id number] AGE/SX: 78/F ROOM: RE08/27/[address]: Dr. Norberto Iyer DO : 1945 BED: DIS: 08/27/2023 SPEC #: [id number] RECD: 08/27/23 11:00 STATUS: NORMAN ABDALLARyann #: [id number] KARISSA: 08/27/23 06:[address]: Norberto Iyer DEPT: SURGICAL PATHOLOGY RECD BY: Cassandra Ortiz ENTERED: 08/27/23 11:01 SP TYPE: COLON BX ELENA DR: Dr. Gini Ojeda DO Tissues: Transverse colon Sigmoid colon biopsy Sigmoid colon biopsy Procedures: Surgery Specimen Level IV HEADER OPERATION: Colonoscopy with polypectomy and electrohemostasis PRE-OP DIAGNOSIS: Diarrhea, steatosis, NAFLD, lower GI bleeding TISSUE SUBMITTED: A - Transverse colon polyp, B - Sigmoid colon biopsy, C - Sigmoid colon polyp biopsy MICROSCOPIC DIAGNOSIS A. Transverse colon polyp, polypectomy: Tubular adenoma. B. Sigmoid colon, biopsy: Focal minimal acute colitis. See comment. C. Sigmoid colon polyp, biopsy: A fragment of colonic mucosa with minimal hyperplastic changes. SJ:ghazal 08/28/2023 COMMENT B. Rare crypt abscesses are noted. Cryptitis, glandular distortion or granulomas are not seen. Correlation with clinical, endoscopic findings and appropriate follow up are necessary. MICROSCOPIC DESCRIPTION Slides are reviewed. GROSS DESCRIPTION A - Received in fixative is one container labeled with the patient's name and designated transverse colon polyp. The specimen consists of one irregular fragment of light mejia soft tissue that measures 0.2 x 0.2 x 0.1 cm. The specimen is totally submitted in one cassette. B - Received in fixative is one container labeled with the patient's name and designated sigmoid colon biopsy. The specimen consists of multiple irregular fragments of light mejia soft tissue that in aggregate measure 1.0 x 0.3 x 0.1 cm. The specimen is totally submitted in one cassette. C - Received in fixative is one container labeled with the patient's name and designated sigmoid colon polyp biopsy. The specimen consists of one irregular fragment of light mejia soft tissue that measures 0.4 x 0.3 x 0.1 cm. The specimen is totally submitted in one cassette. / HILDA:ghazal 08/27/2023 TC:1 CPT: 83446 x3
--- NOTE | 2023-08-27 07:11 | OP.COLON_ITS ---
Patient Name: Bridgette Roque Procedure Date: 08/27/2023 6:23 AM Date of : 1945 Age: 78 Procedure: Colonoscopy Indications: Hematochezia Providers: Norberto Iyer DO Referring MD: Gini Ojeda Medicines: Monitored Anesthesia Care Patient Profile: This is an 78 year old female. Refer to note in patient chart for documentation of history and physical. Last Colonoscopy: 3 years ago. Complications: No immediate complications. Procedure: Pre-Anesthesia Assessment: - Prior to the procedure, a History and Physical was performed, and patient medications and allergies were reviewed. The risks and benefits of the procedure and the sedation options and risks were discussed with the patient. All questions were answered and informed consent was obtained. Patient identification and proposed procedure were verified by the physician in the pre-procedure area. Mental Status Examination: alert and oriented. Airway Examination: normal oropharyngeal airway and neck mobility. Respiratory Examination: clear to auscultation. CV Examination: normal. Prophylactic Antibiotics: The patient does not require prophylactic antibiotics. Prior Anticoagulants: The patient has taken no anticoagulant or antiplatelet agents. ASA Grade Assessment: III - A patient with severe systemic disease. After reviewing the risks and benefits, the patient was deemed in satisfactory condition to undergo the procedure. The anesthesia plan was to use monitored anesthesia care (MAC). Immediately prior to administration of medications, the patient was re-assessed for adequacy to receive sedatives. The heart rate, respiratory rate, oxygen saturations, blood pressure, adequacy of pulmonary ventilation, and response to care were monitored throughout the procedure. The physical status of the patient was re-assessed after the procedure. After I obtained informed consent, the scope was passed under direct vision. Throughout the procedure, the patient's blood pressure, pulse, and oxygen saturations were monitored continuously. The Colonoscope was introduced through the anus and advanced to the cecum, identified by appendiceal orifice and ileocecal valve. The colonoscopy was performed without difficulty. The patient tolerated the procedure well. The quality of the bowel preparation was fair. The ileocecal valve, appendiceal orifice, and rectum were photographed. Scope In: 6:41:58 AM Scope Withdrawal Time 0 hours 11 minutes 22 seconds Scope Out: 6:58:58 AM Total Procedure Duration Time 0 hours 17 minutes 0 seconds Findings: Hemorrhoids were found on perianal exam. Non-bleeding thrombosed prolapsed external and internal hemorrhoids were found during retroflexion, during perianal exam, during digital exam and during anoscopy. The hemorrhoids were large and Grade III (internal hemorrhoids that prolapse but require manual reduction). A hemorrhoid was isolated with anoscopy. The ShortShot ligator was positioned over the hemorrhoid at the left lateral position. Suction was applied and one rubber band was placed over the hemorrhoid. This was checked to make certain that the muscularis was free of the band. Post-banding digital rectal exam showed band in good position. Mild oozing of blood was present. Multiple small and large-mouthed diverticula were found in the recto-sigmoid colon, sigmoid colon and descending colon. A 5 mm polyp was found in the sigmoid colon. The polyp was sessile. The polyp was removed with a cold snare. Resection and retrieval were complete. Verification of patient identification for the specimen was done. Estimated blood loss was minimal. Localized moderate inflammation characterized by erosions, erythema and friability was found in the sigmoid colon. Biopsies were taken with a cold forceps for histology. Verification of patient identification for the specimen was done. Estimated blood loss was minimal. Three small localized angiodysplastic lesions with bleeding were found in the cecum. Coagulation for hemostasis using heater probe was successful. A 10 mm polyp was found in the transverse colon. The polyp was sessile. The polyp was removed with a hot snare. Resection and retrieval were complete. Verification of patient identification for the specimen was done. Estimated blood loss was minimal. Mild rectal prolapse was present. Impression: - Preparation of the colon was fair. - Hemorrhoids found on perianal exam. - Non-bleeding thrombosed prolapsed external and internal hemorrhoids. Banded. - Diverticulosis in the recto-sigmoid colon, in the sigmoid colon and in the descending colon. - One 5 mm polyp in the sigmoid colon, removed with a cold snare. Resected and retrieved. - Localized moderate inflammation was found in the sigmoid colon secondary to colitis. Biopsied. - Three bleeding colonic angiodysplastic lesions. Treated with a heater probe. - One 10 mm polyp in the transverse colon, removed with a hot snare. Resected and retrieved. Recommendation: - Repeat colonoscopy in 3 years for surveillance. - Continue present medications. Procedure Code(s): --- Professional --- 60645, 59, Colonoscopy, flexible; with control of bleeding, any method 75202, Colonoscopy, flexible; with removal of tumor(s), polyp(s), or other lesion(s) by snare technique 10429, Colonoscopy, flexible; with band ligation(s) (eg, hemorrhoids) 64807, 59, Colonoscopy, flexible; with biopsy, single or multiple CPT copyright 2021 [employer]. All rights reserved. The codes documented in this report are preliminary and upon sprinkler irrigation equipment mechanic review may be revised to meet current compliance requirements. Norberto Iyer DO 08/27/2023 7:10:40 AM This report has been signed electronically. Number of Addenda: 0 Note Initiated On: 08/27/2023 6:23 AM
--- NOTE | 2023-08-27 07:11 | OP.CCLET_ITS ---
08/27/2023 Gini Ojeda Re : Colonoscopy procedure for Bridgette Roque Dear Rusty This procedure was performed on July. My impressions and recommendations are as follows: Impressions : - Preparation of the colon was fair. - Hemorrhoids found on perianal exam. - Non-bleeding thrombosed prolapsed external and internal hemorrhoids. Banded. - Diverticulosis in the recto-sigmoid colon, in the sigmoid colon and in the descending colon. - One 5 mm polyp in the sigmoid colon, removed with a cold snare. Resected and retrieved. - Localized moderate inflammation was found in the sigmoid colon secondary to colitis. Biopsied. - Three bleeding colonic angiodysplastic lesions. Treated with a heater probe. - One 10 mm polyp in the transverse colon, removed with a hot snare. Resected and retrieved. Recommendations : - Repeat colonoscopy in 3 years for surveillance. - Continue present medications. My findings are described in the full procedure note, which is enclosed. If I can be of further assistance, please feel free to contact me at . Sincerely, Norberto Iyer, 08/27/2023 7:10:40 AM This report has been signed electronically.
== END 2023-08-27 08:23 | disposition home or self-care (01) ==
LOC: EN 05:17 → AC 05:17
PROVIDERS: PCP Internal Medicine; Referring Provider Internal Medicine; Visit Provider Internal Medicine Gastroenterology
PROC: 0DJD8ZZ Inspection of Lower Intestinal Tract, Via Natural or Artificial Opening Endoscopic (ICD-10-PCS; CPT 45378; principal; 2023-08-27 06:25)
DX: D12.3 Benign neoplasm of transverse colon (principal); I48.0 Paroxysmal atrial fibrillation; K57.30 Diverticulosis of large intestine without perforation or abscess without bleeding; K52.9 Noninfective gastroenteritis and colitis, unspecified; K64.2 Third degree hemorrhoids; K64.5 Perianal venous thrombosis; I10 Essential (primary) hypertension; Z79.01 Long term (current) use of anticoagulants; Z79.899 Other long term (current) drug therapy; Z86.16 Personal history of COVID-19
CPT/HCPCS: 45385; 45380; 45398; 88305; J7120; J2405

== ENCOUNTER → 2023-09-02 | Outpatient (CLI) | payer MEDICARE, SELFPAY ==
--- NOTE | 2023-09-02 10:27 | US_ITS ---
EXAM: US ABDOMEN LIMITED, RIGHT UPPER QUADRANT CLINICAL INDICATION: dx abdominal swelling, rule out ascites, hx ovarian cancer -- dx abdominal swelling, rule out ascites, hx ovarian cancer TECHNIQUE: Real-time ultrasound of the right upper quadrant with image documentation. COMPARISON: No relevant prior studies available. FINDINGS: LIVER: Unremarkable. There is normal echotexture. No focal hepatic lesion. No intrahepatic biliary ductal dilation. GALLBLADDER: Unremarkable. No shadowing gallstone. No gallbladder wall thickening is demonstrated. No pericholecystic fluid. Negative sonographic Villalta''s sign. COMMON BILE DUCT: Unremarkable as visualized. The proximal common bile duct is within normal limits for the patient''s age. PANCREAS: Unremarkable as visualized. No focal abnormality is demonstrated in the pancreas. No pancreatic ductal dilatation. RIGHT KIDNEY: Unremarkable. There is no hydronephrosis. No shadowing calculus. No focal lesion or perinephric collection is demonstrated. SOFT TISSUES: In the region of palpable abnormality. There are 2 discrete nodules in the subcutaneous tissues that measure 1.0 x 0.8 x 0.7 cm and 1.1 x 1.3 x 1.0 cm. OTHER FINDINGS: There is no flow identified. These nodules are hypoechoic and solid-appearing. US/Abdomen Limited IMPRESSION: Hypoechoic nodules in the subcutaneous tissues in the region of palpable abnormality. There is no fluid seen within the abdomen. If indicated further evaluation with CT scan may be beneficial. Electronically Signed: Greg Castillo MD at 23:51 EST ,
== END | disposition home or self-care (01) ==
PROVIDERS: PCP Internal Medicine; Referring Provider Internal Medicine; Visit Provider Internal Medicine
DX: R19.00 Intra-abdominal and pelvic swelling, mass and lump, unspecified site (principal)
CPT/HCPCS: 76705

== ENCOUNTER 2023-09-23 18:15 | Observation (INO) | payer MEDICARE, SELFPAY ==
[2023-09-23 18:16] VITALS: BP 129/66; PULSE 65; RESP 19; TEMP 36.9; O2SAT 98; BMI 33.9
[2023-09-23 19:51] VITALS: BP 135/54; PULSE 57; RESP 17; O2SAT 97
--- NOTE | 2023-09-23 20:11 | ED.VIS.GI ---
HPI HPI - GI History of Present Illness Chief Complaint: GI Bleed Informant: patient Nausea/Vomiting/Emesis GI Symptom: Negative for Nausea or Vomiting Diarrhea/Melena/Hematochezia GI Symptom: Positive for Diarrhea and Hematochezia; Negative for Melena Onset: Days Stool Quality: Positive for Loose Severity: Mild Associated Symptoms Associated Symptoms: Negative for Dysuria, Frequency, Hematuria or Urgency Narrative Narrative: 78-year-old female history of A-fib on Eliquis chemotherapy for intra-abdominal stage III cancer and both internal and external hemorrhoids with a recent colonoscopy done in the last month by Dr. Iyer with polypectomy. She had a salad at a local restaurant on Thursday she started feeling ill and had explosive diarrhea early Thursday morning and after the first episode of diarrhea started having bright red blood per rectum. No large clots. She does not feel lightheaded or dizzy. No nausea, vomiting or hematemesis. She is never needed transfused before. Prior similar symptoms: Yes Recent Illness/Hospitalization: No PFSH PFSH Medical History Anemia Asthma Atrial fibrillation with rapid ventricular response (10/12/20) Atrial flutter with rapid ventricular response (10/12/20) Bilateral carotid artery stenosis Bladder prolapse Calculus of gallbladder with chronic cholecystitis without obstruction Cardiology follow-up encounter Carpal tunnel syndrome, bilateral Cellulitis Cholelithiasis Chronic cholecystitis COPD (chronic obstructive pulmonary disease) Diarrhea Essential (primary) hypertension Fatty liver History of cardioversion Hyperlipemia Multiple thyroid nodules Non-smoker Nonrheumatic mitral valve stenosis with insufficiency Osteopenia Ovarian cancer Paresthesia Peritoneal carcinomatosis Right lower lobe pulmonary nodule Sciatica Shortness of breath on exertion Thyroid nodule Vitamin D deficiency Home Medications calcium carbonate 200 mg calcium (500 mg) chewable tablet (Tums) 200 mg PO DAILY supplement 10/09/17 [History Last Taken Unknown] rosuvastatin 5 mg tablet (Crestor) 5 mg PO QODAY CHOLESTEROL 10/09/17 [History Last Taken Unknown] coenzyme Q10 100 mg capsule 100 mg PO DAILY 10/23/20 [History Last Taken Unknown] zoledronic acid 4 mg intravenous solution 4 mg IV .ONCE 07/02/21 [History Last Taken Unknown] cholecalciferol (vitamin D3) 50 mcg (2,000 unit) capsule 7,000 unit PO DAILY supplement 03/16/23 [History Last Taken Unknown] diphenoxylate-atropine 2.5 mg-0.025 mg tablet (Lomotil) 1 tab PO DAILY diarrhea 03/16/23 [History Last Taken Unknown] apixaban 5 mg tablet (Eliquis) 5 mg PO BID #180 tabs 06/01/23 [Rx Last Taken 08/24/23] furosemide 40 mg tablet (Lasix) 40 mg PO BID #60 tabs 07/20/23 [Rx Last Taken Unknown] potassium chloride 20 mEq tablet,extended release 20 meq PO BID #60 tabs 08/20/23 [Rx Last Taken Unknown] amiodarone 200 mg tablet 200 mg PO QHS 08/25/23 [History Last Taken Unknown] diltiazem HCl 120 mg capsule,extended release 24 hr (Cardizem CD) 120 mg PO BID 08/25/23 [History Last Taken 08/27/23] metoprolol tartrate 50 mg tablet 50 mg PO BID #180 tabs 09/02/23 [Rx Last Taken Unknown] Allergy/AdvReac Type Severity Reaction Status Date / Time morphine AdvReac Severe Nausea/Vom/ Verified 09/23/23 18:17 Diarrhea penicillin G AdvReac Unknown Unknown Verified 09/23/23 18:17 Family History Father CAD (coronary artery disease) Diabetes Mother Lymphoma Sister Colon cancer Brother Colon cancer Surgical History H/O nasal polypectomy History of cholecystectomy (10/23/17) History of colonoscopy History of exploratory laparotomy (10/2020) History of hernia repair (10/2020) History of hysterectomy with unilateral oophorectomy (1983) History of shoulder replacement (2019) Status post laser ablation of incompetent vein Social History Smoking Status: Never smoker second hand exposure: No alcohol intake: never details: rare substance use type: does not use caffeine: No what type of physical activity do you participate in: walking frequency: 3-4 times per week duration: < 15 minutes/day patricia/rastafari: Cheondoism seatbelt use: always do you feel safe at home: Yes ROS ROS ED ROS Narrative Diarrhea. Bloody stools. Review of Systems ROS Unobtainable: Denies due to encephalopathy Constitutional Constitutional ED: Denies chills or fever(s) ENT ENT ED: Denies ear pain Cardiovascular Cardiovascular: Denies chest pain Respiratory/Chest Respiratory/Chest: Denies cough or dyspnea Gastrointestinal Gastrointestinal: Reports diarrhea; Denies abdominal pain, constipation, melena, nausea or vomiting Genitourinary Genitourinary ED: Denies dysuria or hematuria Musculoskeletal Musculoskeletal: Denies arthralgias Integumentary Denies abscess or Abrasions Neurologic Neurologic: Denies headache(s) Psychiatric Psychiatric: Denies anxiety or depression Endocrine Endocrinology: Denies polydipsia, polyphagia or polyuria Hematologic/Lymphatic Hematologic/Lymphatic: Denies easy bleeding or easy bruising Allergic/Immunologic Allergic/Immunologic ED: Denies mouth swelling, tongue swelling or urticaria EXAM Physical Exam Narrative Exam Narrative: Well-appearing 78-year-old female. Vital signs stable afebrile. Initial blood pressure 129/66. Does not look septic toxic. H EENT exam unremarkable. Moist with membranes. Neck nontender no lymphadenopathy. Lungs clear to auscultation. Heart regular rhythm no murmur. Rate about 60. Abdomen soft, nontender, nondistended normal bowel sounds no peritoneal signs. Moving all 4 extremities. Trace edema bilaterally. Rectal exam she has external hemorrhoids are nontender though not actively bleeding. They are not thrombosed. On rectal exam there is no mass and currently there is no active bleeding or dried blood. There is no black stool. Neurologically she is awake alert with no focal motor deficits. Const Vital Signs: 09/23/23 18:16 09/23/23 19:51 09/23/23 21:15 Temperature 98.5 F Temperature Source Temporal Pulse Rate 65 57 L 58 L Respiratory Rate 19 H 17 16 Blood Pressure 129/66 H 135/54 H 123/52 H Blood Pressure Mean 87 81 75 Pulse Ox 98 97 97 Oxygen Delivery Method Room Air Room Air Room Air Positive well nourished and well developed; Negative for cachectic, contractures or unkempt General Appearance ED: well developed and NAD; Negative for unkempt, cachectic, contractures or pallor Nutritional Appearance: Negative for cachectic HEENT Reports moist mucous membranes; Denies dry mucous membranes atraumatic; Negative for trauma or tenderness Mouth ED: No dry mucous membranes Mouth: No dry mucous membranes Eyes PERRL; Negative for EOMs intact bilaterally General Eye ED: Negative for pale conjunctiva, scleral icterus or other Neck no lymphadenopathy, supple and no JVD General: Negative for tenderness Carotids: Negative for other Lymph Lymphatic: Negative for other Resp normal respiratory effort and clear to auscultation bilaterally Effort and Inspection: Negative for respiratory distress Auscultation: Negative for rales, rhonchi or wheezes Cardio regular rate, regular rhythm, S1 normal heart sound, S2 normal heart sound and no murmurs Rate: Negative for bradycardia or tachycardic Rhythm: abnormal rhythm GI non-tender, non-distended and no masses Inspection: Negative for abdominal distention Auscultation: normoactive bowel sounds Palpation: soft; Negative for tender, guarding, rigid, hepatomegaly or rebound tenderness present Back/Spine no CVA tenderness General Back: Negative for CVA tenderness Cervical Spine: Negative for cervical spine tenderness Thoracic Spine / Upper Back: Negative for thoracic spinal tenderness Lumbar Spine / Lower Back: Negative for lumbar spinal tenderness Coccyx: Negative for other Extremity full ROM General Extremety ED: Negative for edema or tenderness General Extremity: Negative for edema Neuro CN's II-XII intact bilaterally and moves all extremities Sensorium / Orientation: alert, oriented to person, oriented to place and oriented to time; Negative for orientation impaired or confused Motor Exam: strength 5/5 throughout Psych mental status grossly normal and thought process normal Appearance: Negative for unkempt Attitude: No agitated Mood & Affect: Negative for depressed, anxious or tearful Skin no wounds General Skin Exam: Negative for jaundice or pallor Lesions: no lesions Rashes: no rashes Trauma: Negative for abrasion Nails: Negative for discolored MDM MDM MDM Narrative Medical decision making narrative: 78-year-old suspected lower GI bleed. Concern is 1 she is on the blood thinner Eliquis 2 she had a recent polypectomy. Screening labs will be obtained. Currently no signs of significant acute bleeding. Repeat exam 10:34 PM patient doing well. Has had no further bleeding. Her hemoglobin did drop from 11.712 months ago to 11 today. Not a significant change. I will speak to the hospitalist about observation overnight admission to determine if she has further worsening bleeding and if there were any further evaluation tomorrow. History & Record Review Discussion w/independent historian: Patient Additional record(s) reviewed:: Prior inpatient record, Prior outpatient record and Prior ED visit Lab Data Attestation: I reviewed the patient's lab results. Lab results narrative: CBC shows a white count 11.3. H&H 11.0 and 35. Platelets 372. Chemistries show potassium of 3.1 gap of 4. Normal BUN of 12 creatinine 0.7. Glucose 113. Blood type a positive. Labs: Laboratory Results - last 24 hr 09/23/23 19:40 WBC 11.3 H RBC 4.06 L Hgb 11.0 L Hct 35.3 L MCV 86.9 MCH 27.1 MCHC 31.2 L RDW Std Deviation 47.0 H RDW Coeff of Jaciel 14.6 Plt Count 372 MPV 9.4 Immature Gran % (Auto) 0.400 Neut % (Auto) 70.6 H Lymph % (Auto) 17.7 L Phelps % (Auto) 9.1 Eos % (Auto) 1.8 Baso % (Auto) 0.4 Absolute Neuts (auto) 8.0 H Absolute Lymphs (auto) 2.00 Nucleated RBC % 0 Sodium 140 Potassium 3.1 L Chloride 106 Carbon Dioxide 30.0 Anion Gap 4 L BUN 12 Creatinine 0.77 Estim Creat Clear Calc 65.24 Est GFR (MDRD) Af Amer 93 Est GFR (MDRD) Non-Af 77 BUN/Creatinine Ratio 15.6 Glucose 113 H Calcium 9.3 Blood Type A POSITIVE Antibody Screen NEGATIVE Discharge Plan Triage Chief Complaint: GI Bleed ED Provider: Raz Larsen Dx/Rx/DC Orders Clinical Impression: History of rectal polypectomy, Anemia, Chronic anticoagulation, Acute lower gastrointestinal bleeding Prescriptions: No Action rosuvastatin [Crestor] 5 mg tablet 5 mg PO QODAY calcium carbonate [Tums] 200 mg calcium (500 mg) tablet,chewable 200 mg PO DAILY cholecalciferol (vitamin D3) 50 mcg (2,000 unit) capsule 7,000 unit PO DAILY coenzyme Q10 100 mg capsule 100 mg PO DAILY zoledronic acid 4 mg recon soln 4 mg IV .ONCE Rx Instructions: injection every 6 months diphenoxylate-atropine [Lomotil] 2.5-0.025 mg tablet 1 tab PO DAILY metoprolol tartrate 50 mg tablet 50 mg PO BID Qty: 180 3RF amiodarone 200 mg tablet 200 mg PO QHS diltiazem HCl [Cardizem CD] 120 mg capsule,extended release 24hr 120 mg PO BID Eliquis 5 mg tablet 5 mg PO BID Qty: 180 4RF furosemide [Lasix] 40 mg tablet 40 mg PO BID Qty: 60 3RF potassium chloride 20 mEq tablet extended release 20 meq PO BID Qty: 60 6RF Primary Care Provider: Gini Ojeda Referrals: Gini Ojeda, [Primary Care Provider] - Disposition Disposition: Acute Care Hospital [facility]
[2023-09-23 20:19] LABS: Basophil# 0.04 X10^3/uL; Basophil% 0.4 % (0-1); Eosinophils% 1.8 % (0-5); Hematocrit 35.3 % (37-47); Lymphocyte % 17.7 % (19-41); Mean Corp Hgb Conc 31.2 g/dL (32-36); Mean Corpuscular Hgb 27.1 pg (27.0-32.0); Mean Corpuscular Volume 86.9 fL (81-99); Mean Platelet Vol. 9.4 fl (6.2-12.0); Monocyte# 1.03 X10^3/uL; Monocyte% 9.1 % (0-10); NRBC Flagged by Analyzer 0 % (0-5); Neutrophil # 7.95 X10^3/uL (2.7-7.7); Neutrophil % 70.6 % (47-70); Platelet Count 372 K/mm3 (150-450); RBC Distribution Width CV 14.6 % (11.6-14.6); Red Blood Count 4.06 M/mm3 (4.2-5.4); White Blood Count 11.3 K/mm3 (4.4-11.0)
[2023-09-23 20:54] LABS: Anion Gap 4 (5-15); BUN 12 mg/dL (7-18); BUN/Creat Ratio 15.6 RATIO (10-20); Calcium,Total 9.3 mg/dL (8.5-10.1); Chloride 106 mmol/L (98-107); Creatinine, Serum 0.77 mg/dL (0.55-1.02); EST Glomerular Filtration Rate 77 mL/min (>60); Est Glom Filt Rate - Afr Amer 93 mL/min (>60); Estimated Creatinine Clearance 65.24 ml/min; Glucose 113 mg/dL (74-106); Potassium 3.1 mmol/L (3.5-5.1); Sodium Level 140 mmol/L (136-145)
[2023-09-23 21:15] VITALS: BP 123/52; PULSE 58; RESP 16; O2SAT 97
[2023-09-23 22:44] VITALS: BP 125/52; PULSE 60; RESP 18; O2SAT 96
--- NOTE | 2023-09-23 22:48 | PCM.HP.STD ---
HPI - General General Date of Admission: 09/23/23 Date of Service: 09/23/23 Chief Complaint: BRBPR HPI Narrative The patient is an 78 y/o F w/ PMHx: Obesity, PAF, Chronic anemia, Asthma/COPD, HTN, HLD, Ovarian CA s/p KOLBY w/ unilateral oopherectomy, NAFLD, Chronic diarrhea who presents to the [facility] ED on 09/23/23 with history of recent evaluation as noted with Dr. Iyer with polypectomy the month prior with no acute events since however she had recently eaten out at a local restaurant and started to feel ill with onset the following day with explosive diarrhea, with onset then BRB (Thursday) with no large clots with no lightheadedness or dizziness but ongoing prompted ED evaluation. She notes she had been recently weaked off budesonside loperamide by Dr. Iyer and her diarrhea had resolved until this occurrence but she felt it was food related. She notes her diarrhea has now resolved but she is still have the BRBPR. In the ED she had no clots or BRB noted. She has external hemorrhoids that are unremarkable appearing. From records noted 08/27/2023 colonoscopy with hemorrhoids on perianal exam, nonbleeding thrombosed prolapsed external and internal hemorrhoids which were banded, diverticulosis in the rectosigmoid colon region as well as in the sigmoid region and in the descending colon, 5 mm polyp in the sigmoid colon removed with cold snare, localized moderate inflammation found in the sigmoid colon secondary to colitis which was biopsied, 3 bleeding colonic angiodysplastic lesions treated with heater probe, one 10 mm polyp in the transverse colon removed with hot snare, resected. Workup in the ED included T98.5, heart rate 65, BP 129/66, respiratory rate 19, 98% on room air, CBC with WBC 11.3, hemoglobin, MCV 86.9, platelet 372 with left shift, BMP with potassium 3.1, glucose 113 otherwise unremarkable, type and screen initiated per ED physician. From review of previous records most recent hemoglobin prior to this 08/19/23 Hgb 11.7. [facility] Medical History Anemia Asthma Atrial fibrillation with rapid ventricular response (10/12/20) Atrial flutter with rapid ventricular response (10/12/20) Bilateral carotid artery stenosis Bladder prolapse Calculus of gallbladder with chronic cholecystitis without obstruction Cardiology follow-up encounter Carpal tunnel syndrome, bilateral Cellulitis Cholelithiasis Chronic cholecystitis COPD (chronic obstructive pulmonary disease) Diarrhea Essential (primary) hypertension Fatty liver History of cardioversion Hyperlipemia Multiple thyroid nodules Non-smoker Nonrheumatic mitral valve stenosis with insufficiency Osteopenia Ovarian cancer Paresthesia Peritoneal carcinomatosis Right lower lobe pulmonary nodule Sciatica Shortness of breath on exertion Thyroid nodule Vitamin D deficiency Home Medications calcium carbonate 200 mg calcium (500 mg) chewable tablet (Tums) 200 mg PO DAILY supplement 10/09/17 [History Last Taken Unknown] rosuvastatin 5 mg tablet (Crestor) 5 mg PO QODAY CHOLESTEROL 10/09/17 [History Last Taken Unknown] coenzyme Q10 100 mg capsule 100 mg PO DAILY 10/23/20 [History Last Taken Unknown] zoledronic acid 4 mg intravenous solution 4 mg IV .ONCE 07/02/21 [History Last Taken Unknown] cholecalciferol (vitamin D3) 50 mcg (2,000 unit) capsule 7,000 unit PO DAILY supplement 03/16/23 [History Last Taken Unknown] apixaban 5 mg tablet (Eliquis) 5 mg PO BID #180 tabs 06/01/23 [Rx Last Taken 08/24/23] furosemide 40 mg tablet (Lasix) 40 mg PO BID #60 tabs 07/20/23 [Rx Last Taken Unknown] amiodarone 200 mg tablet 200 mg PO QHS 08/25/23 [History Last Taken Unknown] diltiazem HCl 120 mg capsule,extended release 24 hr (Cardizem CD) 120 mg PO BID 08/25/23 [History Last Taken 08/27/23] metoprolol tartrate 50 mg tablet 50 mg PO BID #180 tabs 09/02/23 [Rx Last Taken Unknown] ascorbic acid (vitamin C) 1,000 mg tablet (C-1000) 2 g PO DAILY 09/23/23 [History Last Taken Unknown] potassium chloride 20 mEq tablet,extended release 20 meq PO DAILY 09/23/23 [History Last Taken Unknown] zinc 50 mg capsule 50 mg PO DAILY 09/23/23 [History Last Taken Unknown] Allergy/AdvReac Type Severity Reaction Status Date / Time morphine AdvReac Severe Nausea/Vom/ Verified 09/23/23 18:17 Diarrhea penicillin G AdvReac Unknown Unknown Verified 09/23/23 18:17 Family History Father CAD (coronary artery disease) Diabetes Mother Lymphoma Sister Colon cancer Brother Colon cancer Surgical History H/O nasal polypectomy History of cholecystectomy (10/23/17) History of colonoscopy History of exploratory laparotomy (10/2020) History of hernia repair (10/2020) History of hysterectomy with unilateral oophorectomy (1983) History of shoulder replacement (2019) Status post laser ablation of incompetent vein Social History household members: spouse Smoking Status: Never smoker second hand exposure: No alcohol intake: never details: rare substance use type: does not use caffeine: No what type of physical activity do you participate in: walking frequency: 3-4 times per week duration: < 15 minutes/day patricia/rastafari: Taoist seatbelt use: always do you feel safe at home: Yes ROS ROS Narrative Admission Review of Systems: CONSTITUTIONAL: No weight loss, fever, chills, + weakness or fatigue. HEENT: Eyes: No visual loss, blurred vision, double vision or yellow sclerae. Ears, Nose, Throat: No hearing loss, sneezing, congestion, runny nose or sore throat. SKIN: No rash or itching, lesions, wounds. CARDIOVASCULAR: No chest pain, chest pressure or chest discomfort, palpitations, edema, orthopnea, syncopal events. RESPIRATORY: No shortness of breath, cough or sputum, wheezing, hemoptysis. GASTROINTESTINAL: + Diarrheal episode with BRBPR, No anorexia, nausea, vomiting, abdominal pain, melena. GENITOURINARY: No dysuria, frequency, urgency or retention. NEUROLOGICAL: No headache, dizziness, syncope, paralysis, ataxia, numbness or tingling in the extremities, focal weakness, change in bowel or bladder control, seizure. MUSCULOSKELETAL: + muscle, back pain, joint pain or stiffness. HEMATOLOGIC: + anemia, recent bleeding as noted. LYMPHATICS: No enlarged nodes. No history of splenectomy. PSYCHIATRIC: No history of depression or anxiety. ENDOCRINOLOGIC: No reports of sweating, cold or heat intolerance. No polyuria or polydipsia. ALLERGIES: No history of asthma, hives, eczema or rhinitis. Vital Signs Vital Signs Vital Signs: 09/23/23 18:16 09/23/23 19:51 09/23/23 21:15 Temperature 98.5 F Temperature Source Temporal Pulse Rate 65 57 L 58 L Respiratory Rate 19 H 17 16 Blood Pressure 129/66 H 135/54 H 123/52 H Blood Pressure Mean 87 81 75 Pulse Ox 98 97 97 Oxygen Delivery Method Room Air Room Air Room Air 09/23/23 22:44 Temperature Temperature Source Pulse Rate 60 Respiratory Rate 18 Blood Pressure 125/52 H Blood Pressure Mean 76 Pulse Ox 96 Oxygen Delivery Method Weight Weight: 210 lb Body Mass Index (BMI) 33.9 Physical Exam Narrative Physical Examination: General: Awake, alert, oriented x 3 and cooperative, seated upright in the ED bed in no apparent distress. Skin: Normal color, normal turgor, no icterus, no cyanosis. HEENT: AT/NC, EOMI, PERRLA, MMM, no carotid bruits or JVD noted. Lungs: CTA bilaterally, moderate effort, mild decrease BL bases, no rales, ronchi or wheezing. Heart: Mildly bradycardic with regular rhythm; no gallop, rub audible. Abdomen: Soft, obese, NTTP, ND, mildly hyperactive BS, unable to appreciate HSM. Extremities: No cyanosis, no clubbing, mild BL ankle not markedly pitting edema. Neurological: Patient awake, alert, oriented as noted, cognitive function intact; pupils equally reactive to light and accommodation, cranial nerves II-XII grossly normal, moving all 4 extremities, no focal deficits, strength preserved. Psychiatric: Affect appears normal, no acute evidence of depressive or anxiety feelings. Results Lab / Micro Data 09/23/23 19:40 09/23/23 19:40 Labs: Laboratory Results - last 24 hr 09/23/23 19:40: WBC 11.3 H, RBC 4.06 L, Hgb 11.0 L, Hct 35.3 L, MCV 86.9, MCH 27.1, MCHC 31.2 L, RDW Std Deviation 47.0 H, RDW Coeff of Jaciel 14.6, Plt Count 372, MPV 9.4, Immature Gran % (Auto) 0.400, Neut % (Auto) 70.6 H, Lymph % (Auto) 17.7 L, [place] % (Auto) 9.1, Eos % (Auto) 1.8, Baso % (Auto) 0.4, Absolute Neuts (auto) 8.0 H, Absolute Lymphs (auto) 2.00, Nucleated RBC % 0, Sodium 140, Potassium 3.1 L, Chloride 106, Carbon Dioxide 30.0, Anion Gap 4 L, BUN 12, Creatinine 0.77, Estim Creat Clear Calc 65.24, Est GFR (MDRD) Af Amer 93, Est GFR (MDRD) Non-Af 77, BUN/Creatinine Ratio 15.6, Glucose 113 H, Calcium 9.3, Blood Type A POSITIVE, Antibody Screen NEGATIVE Assessment & Plan Assessment/Plan (1) Acute lower gastrointestinal bleeding: PLAN: Plan The patient is an 78 y/o F w/ PMHx: Obesity, PAF, Chronic anemia, Asthma/COPD, HTN, HLD, Ovarian CA s/p KOLBY w/ unilateral oopherectomy, NAFLD, Chronic diarrhea who presents to the [facility] ED on 09/23/23 with history of recent evaluation as noted with Dr. Iyer with polypectomy the month prior with no acute events since however she had recently eaten out at a local restaurant and started to feel ill with onset the following day with explosive diarrhea, with onset then BRB (Thursday) with no large clots with no lightheadedness or dizziness but ongoing prompted ED evaluation. #1. Acute GI Bleed with underlying chronic anemia status post recent polypectomy on chronic anticoagulant therapy: Will admit to medical surgical floor, maintain on judicious IV fluids, hold Eliquis therapy, obtain serial H&H assessments, type and screen already initiated per ED physician, lamar requested, will maintain on clears with n.p.o. status after midnight, maintain on IV PPI, will initiate bowel prep in case of lower endoscopy. Given recent increased diarrhea to be cautious will obtain cdiff and enteric. Gastroenterology consulted, pending. #2. Hypokalemia: Admission K+ 3.1, magnesium level pended, supplementation given, repeat level in AM. #3. Ovarian cancer with peritoneal carcinomatosis stage III: Noted chart reported history also of peritoneal carcinomatosis, status post total abdominal hysterectomy with unilateral oophorectomy 1983. Patient had presented to the ED 10/12/2020 with an incarcerated ventral hernia with bowel obstruction with operative intervention with resection of the small bowel and primary anastomosis with pathology notable for metastatic carcinoma and fibrosis at that time with 10/2020 EGD and colonoscopy with no evidence of any malignant primary. Follow-up 12/17/2020 laparoscopic right salpingo-oophorectomy with lysis of adhesions and multiple peritoneal biopsies consistent with low-grade serous carcinoma at [facility] treated with hormonal therapy with Femara. Encourage continued outpatient follow-up with oncology as previously arranged. Per most recent notes patient is following with CC and notes currently not on treatment until cleared per Cardiology per her discussions. #4. Chronic anemia, normocytic: Admission hemoglobin 11, MCV 86.9, previous baseline 08/19/2020 311.7 and in 2020 was also 11-12 range but did vacillate, continue to trend. #5. Chronic diarrhea: Following with Dr. Iyer, most recent evaluation prior to recent operative intervention 08/27/2023 with noting some improvements with ongoing budesonide and Lomotil but from current list she is not on these medications and she notes she was weaned off with resolution of her diarrhea until recent illness as noted. #6. Chronic COPD/asthma: Per current list not on any chronic regimen, PRN albuterol, HOB, IS parameters. #7. PAF: Will hold eliquis as noted, continue home metoprolol and diltiazem as well as amiodarone home regimen. #8. Hypertension: Continue home regimen including amiodarone, diltiazem, Lasix, metoprolol with hold parameters/adjustments as needed, PRN hydralazine. #9. Hyperlipidemia: Continue home statin regimen. #10. Obesity: Weight loss and lifestyle changes encouraged. #11. DVT prophylaxis: SCDs, will hold patient home apixaban regimen given presentation. #12. CODE status: Patient GINGER is her daughter and living will is currently in place. Discussed CODE status at length including difference between FULL code, DNR-CCA and DNR-CC status. Following discussions about the differences in these status, requested Full Code status. Advanced Care Planning Face to Face Time: 16 minutes. Charges/Coding Visit Charges Inpatient E&M: 00682 Init Hosp L3 Procedures Hospitalists Procedures: 51699 Advncd Care Plan 30 Min
[2023-09-23 23:45] VITALS: BMI 33.7
[2023-09-23 23:48] LABS: Magnesium 1.9 mg/dL (1.6-2.6); Phosphorus 3.6 mg/dL (2.5-4.9)
[2023-09-23 23:54] VITALS: BP 135/67; PULSE 63; RESP 18; TEMP 37.2; O2SAT 95
--- NOTE | 2023-09-23 23:56 | EX.PCM.CON.G ---
HPI Consult Data Date of Consult: 09/23/23 HPI Narrative Reason for Consultation: Lower GI bleed HPI Narrative: FAVIO HE, is a 78 yo woman with PMH: PAF, Chronic anemia, Asthma/COPD, HTN, HLD, Ovarian CA s/p KOLBY w/ unilateral oopherectomy, NAFLD, Chronic diarrhea who. She presents to the [facility] ED on 09/23/23 with history of recent evaluation as noted with myself with polypectomy the month prior with no acute events since however she had recently eaten out at a local restaurant and started to feel ill with onset the following day with explosive diarrhea, with onset then BRB (Thursday) with no large clots with no lightheadedness or dizziness but ongoing prompted ED evaluation. She notes she had been recently weaked off budesonside loperamide by Dr. Iyer and her diarrhea had resolved until this occurrence but she felt it was food related. She notes her diarrhea has now resolved but she is still have the BRBPR. In the ED she had no clots or BRB noted. She has external hemorrhoids that are unremarkable appearing. From records noted 08/27/2023 colonoscopy with hemorrhoids on perianal exam, nonbleeding thrombosed prolapsed external and internal hemorrhoids which were banded, diverticulosis in the rectosigmoid colon region as well as in the sigmoid region and in the descending colon, 5 mm polyp in the sigmoid colon removed with cold snare, localized moderate inflammation found in the sigmoid colon secondary to colitis which was biopsied, 3 bleeding colonic angiodysplastic lesions treated with heater probe, one 10 mm polyp in the transverse colon removed with hot snare, resected. Workup in the ED included T98.5, heart rate 65, BP 129/66, respiratory rate 19, 98% on room air, CBC with WBC 11.3, hemoglobin, MCV 86.9, platelet 372 with left shift, BMP with potassium 3.1, glucose 113 otherwise unremarkable, type and screen initiated per ED physician. From review of previous records most recent hemoglobin prior to this 08/19/23 Hgb 11.7. [facility] Medical History Anemia Asthma Atrial fibrillation with rapid ventricular response (10/12/20) Atrial flutter with rapid ventricular response (10/12/20) Bilateral carotid artery stenosis Bladder prolapse Calculus of gallbladder with chronic cholecystitis without obstruction Cardiology follow-up encounter Carpal tunnel syndrome, bilateral Cellulitis Cholelithiasis Chronic cholecystitis COPD (chronic obstructive pulmonary disease) Diarrhea Essential (primary) hypertension Fatty liver History of cardioversion Hyperlipemia Multiple thyroid nodules Non-smoker Nonrheumatic mitral valve stenosis with insufficiency Osteopenia Ovarian cancer Paresthesia Peritoneal carcinomatosis Right lower lobe pulmonary nodule Sciatica Shortness of breath on exertion Thyroid nodule Vitamin D deficiency Home Medications calcium carbonate 200 mg calcium (500 mg) chewable tablet (Tums) 200 mg PO DAILY supplement 10/09/17 [History Last Taken Unknown] rosuvastatin 5 mg tablet (Crestor) 5 mg PO QODAY CHOLESTEROL 10/09/17 [History Last Taken Unknown] coenzyme Q10 100 mg capsule 100 mg PO DAILY 10/23/20 [History Last Taken Unknown] zoledronic acid 4 mg intravenous solution 4 mg IV .ONCE 07/02/21 [History Last Taken Unknown] cholecalciferol (vitamin D3) 50 mcg (2,000 unit) capsule 7,000 unit PO DAILY supplement 03/16/23 [History Last Taken Unknown] apixaban 5 mg tablet (Eliquis) 5 mg PO BID #180 tabs 06/01/23 [Rx Last Taken 08/24/23] furosemide 40 mg tablet (Lasix) 40 mg PO BID #60 tabs 07/20/23 [Rx Last Taken Unknown] amiodarone 200 mg tablet 200 mg PO QHS 08/25/23 [History Last Taken Unknown] diltiazem HCl 120 mg capsule,extended release 24 hr (Cardizem CD) 120 mg PO BID 08/25/23 [History Last Taken 08/27/23] metoprolol tartrate 50 mg tablet 50 mg PO BID #180 tabs 09/02/23 [Rx Last Taken Unknown] ascorbic acid (vitamin C) 1,000 mg tablet (C-1000) 2 g PO DAILY 09/23/23 [History Last Taken Unknown] potassium chloride 20 mEq tablet,extended release 20 meq PO DAILY 09/23/23 [History Last Taken Unknown] zinc 50 mg capsule 50 mg PO DAILY 09/23/23 [History Last Taken Unknown] Allergy/AdvReac Type Severity Reaction Status Date / Time morphine AdvReac Severe Nausea/Vom/ Verified 09/23/23 18:17 Diarrhea penicillin G AdvReac Unknown Unknown Verified 09/23/23 18:17 Family History Father CAD (coronary artery disease) Diabetes Mother Lymphoma Sister Colon cancer Brother Colon cancer Surgical History H/O nasal polypectomy History of cholecystectomy (10/23/17) History of colonoscopy History of exploratory laparotomy (10/2020) History of hernia repair (10/2020) History of hysterectomy with unilateral oophorectomy (1983) History of shoulder replacement (2019) Status post laser ablation of incompetent vein Social History household members: spouse Smoking Status: Never smoker second hand exposure: No alcohol intake: never details: rare substance use type: does not use caffeine: No what type of physical activity do you participate in: walking frequency: 3-4 times per week duration: < 15 minutes/day patricia/restoration: Baptist seatbelt use: always do you feel safe at home: Yes ROS ROS Narrative Admission Review of Systems: CONSTITUTIONAL: No weight loss, fever, chills, + weakness or fatigue. HEENT: Eyes: No visual loss, blurred vision, double vision or yellow sclerae. Ears, Nose, Throat: No hearing loss, sneezing, congestion, runny nose or sore throat. SKIN: No rash or itching, lesions, wounds. CARDIOVASCULAR: No chest pain, chest pressure or chest discomfort, palpitations, edema, orthopnea, syncopal events. RESPIRATORY: No shortness of breath, cough or sputum, wheezing, hemoptysis. GASTROINTESTINAL: + Diarrheal episode with BRBPR, No anorexia, nausea, vomiting, abdominal pain, melena. GENITOURINARY: No dysuria, frequency, urgency or retention. NEUROLOGICAL: No headache, dizziness, syncope, paralysis, ataxia, numbness or tingling in the extremities, focal weakness, change in bowel or bladder control, seizure. MUSCULOSKELETAL: + muscle, back pain, joint pain or stiffness. HEMATOLOGIC: + anemia, recent bleeding as noted. LYMPHATICS: No enlarged nodes. No history of splenectomy. PSYCHIATRIC: No history of depression or anxiety. ENDOCRINOLOGIC: No reports of sweating, cold or heat intolerance. No polyuria or polydipsia. ALLERGIES: No history of asthma, hives, eczema or rhinitis. Physical Exam Const alert, oriented x3 and no apparent distress General Appearance: cooperative and well developed HEENT normocephalic, head/scalp atraumatic, moist oral mucous membranes and oropharynx normal Eyes PERRL and EOMs intact bilaterally Neck no lymphadenopathy and supple Lymph Lymphatic: no lymphadenopathy noted and no lymphedema noted Resp normal respiratory effort, normal air movement and clear to auscultation bilaterally Cardio regular rate, regular rhythm, S1 normal heart sound, S2 normal heart sound and no murmurs GI normal to inspection, nondistended, normoactive bowel sounds, soft to palpation, non-tender and non-distended Extremity normal capillary refill and no clubbing, cyanosis or edema General Extremity: no tenderness to palpation of joints or extremities Skin General Skin Exam: no breakdown and turgor normal Neuro CN's II-XII intact bilaterally, no focal motor deficits, no sensory deficits noted and deep tendon reflexes 2+ bilaterally Motor Exam: strength 5/5 throughout and general weakness Psych thought process normal and cooperative Appearance: appropriate Lab / Micro Data 09/24/23 07:25 09/24/23 07:25 Labs: Laboratory Results - last 24 hr 09/23/23 19:40: WBC 11.3 H, RBC 4.06 L, Hgb 11.0 L, Hct 35.3 L, MCV 86.9, MCH 27.1, MCHC 31.2 L, RDW Std Deviation 47.0 H, RDW Coeff of Jaciel 14.6, Plt Count 372, MPV 9.4, Immature Gran % (Auto) 0.400, Neut % (Auto) 70.6 H, Lymph % (Auto) 17.7 L, [place] % (Auto) 9.1, Eos % (Auto) 1.8, Baso % (Auto) 0.4, Absolute Neuts (auto) 8.0 H, Absolute Lymphs (auto) 2.00, Nucleated RBC % 0, Sodium 140, Potassium 3.1 L, Chloride 106, Carbon Dioxide 30.0, Anion Gap 4 L, BUN 12, Creatinine 0.77, Estim Creat Clear Calc 65.24, Est GFR (MDRD) Af Amer 93, Est GFR (MDRD) Non-Af 77, BUN/Creatinine Ratio 15.6, Glucose 113 H, Calcium 9.3, Phosphorus 3.6, Magnesium 1.9, Blood Type A POSITIVE, Antibody Screen NEGATIVE 09/23/23 23:59: Hgb 10.7 L, Hct 34.6 L 09/24/23 03:48: Hgb 11.4 L, Hct 37.5 09/24/23 07:25: WBC 11.0, RBC 3.54 L, Hgb 9.8 L, Hct 30.7 L, MCV 86.7, MCH 27.7, MCHC 31.9 L, RDW Std Deviation 46.7 H, RDW Coeff of Jaciel 14.6, Plt Count 316, MPV 8.9, Immature Gran % (Auto) 0.300, Neut % (Auto) 70.3 H, Lymph % (Auto) 17.4 L, [place] % (Auto) 10.2 H, Eos % (Auto) 1.4, Baso % (Auto) 0.4, Absolute Neuts (auto) 7.8 H, Absolute Lymphs (auto) 1.91, Nucleated RBC % 0, Sodium 142, Potassium 3.3 L, Chloride 113 H, Carbon Dioxide 25.0, Anion Gap 4 L, BUN 11, Creatinine 0.67, Estim Creat Clear Calc 67.36, Est GFR (MDRD) Af Amer 110, Est GFR (MDRD) Non-Af 91, BUN/Creatinine Ratio 16.5, Glucose 120 H, Calcium 9.1, Total Bilirubin 0.50, AST 12 L, ALT 17, Alkaline Phosphatase 47, Total Protein 6.2 L, Albumin 3.1 L, Globulin 3.1, Albumin/Globulin Ratio 1.0 Micro: Microbiology 09/24/23 00:30 Stool Enteric Bacteriology - Final 09/24/23 00:30 Stool Stool Occult Blood (JC) - Final Occult Blood Positive 09/24/23 00:30 Stool Clostridioides difficile (PCR) - Final Assessment & Plan Assessment/Plan (1) Acute lower gastrointestinal bleeding: PLAN: Plan The patient is an 78 y/o F w/ PMHx: Obesity, PAF, Chronic anemia, Asthma/COPD, HTN, HLD, Ovarian CA s/p KOLBY w/ unilateral oopherectomy, NAFLD, Chronic diarrhea who presents to the [facility] ED on 09/23/23 with history of recent evaluation as noted with Dr. Iyer with polypectomy the month prior with no acute events since however she had recently eaten out at a local restaurant and started to feel ill with onset the following day with explosive diarrhea, with onset then BRB (Thursday) with no large clots with no lightheadedness or dizziness but ongoing prompted ED evaluation. Acute GI Bleed with underlying chronic anemia status post recent polypectomy on chronic anticoagulant therapy: Will admit to medical surgical floor, maintain on judicious IV fluids, hold Eliquis therapy, obtain serial H&H assessments, type and screen already initiated per ED physician, gukrysta requested, will maintain on clears with n.p.o. status after midnight, maintain on IV PPI, will initiate bowel prep for a lower endoscopy. Given recent increased diarrhea to be cautious will obtain cdiff and enteric. Chronic diarrhea: The most recent evaluation prior to recent operative intervention 08/27/2023 with noting some improvements with ongoing budesonide and Lomotil but from current list she is not on these medications and she notes she was weaned off with resolution of her diarrhea until recent illness as noted. Charges/Coding Visit Charges Inpatient E&M: 85951 Init Hosp L3
[2023-09-24] VITALS (10 sets, daily range): BP systolic 100–136; BP diastolic 38–74; PULSE 61–72; RESP 16–18; TEMP 36.4–37.2; O2SAT 95–100; BMI 33.7
[2023-09-24] MEDS: 0.9% Normal Saline (1000mL) 1,000 ML 100 ML IV (00:21)
[2023-09-24] MEDS: Pantoprazole Sodium 40 MG in 0.9% Normal Saline (100mL MB+) 100 ML 330 MG IV ×3 (00:21→20:36)
[2023-09-24] MEDS: Potassium Chloride Oral Tablet 20 MEQ 40 MEQ PO (00:21)
[2023-09-24] MEDS: Bisacodyl 5 MG Tablet 20 MG PO (00:21)
[2023-09-24] MEDS: Polyethylene Glycol 3350 BOWEL PREP 1 BOTTLE PO (00:23)
[2023-09-24 00:29] LABS: Hematocrit 34.6 % (37-47); Hemoglobin 10.7 g/dL (12.0-15.0)
[2023-09-24] MEDS: 0.9% Saline Lock 10 ML Syringe IV (01:56)
[2023-09-24] MEDS: Ondansetron 4 MG/2 ML Vial IV (01:56)
[2023-09-24 03:58] LABS: Hematocrit 37.5 % (37-47); Hemoglobin 11.4 g/dL (12.0-15.0)
--- NOTE | 2023-09-24 06:49 | NURSING ---
Pt stool yellow in color. no blood noted
[2023-09-24 07:32] LABS: Absolute Lymphocyte Count 1.91 X10^3/uL (0.83-4.51); Absolute Neutrophil Count 7.8 X10^3/uL (2.0-7.7); Basophil# 0.04 X10^3/uL; Basophil% 0.4 % (0-1); Eosinophil# 0.15 X10^3/uL; Eosinophils% 1.4 % (0-5); Hematocrit 30.7 % (37-47); Hemoglobin 9.8 g/dL (12.0-15.0); Lymphocyte # 1.91 X10^3/ul (0.83-4.51); Lymphocyte % 17.4 % (19-41); Mean Corp Hgb Conc 31.9 g/dL (32-36); Mean Corpuscular Hgb 27.7 pg (27.0-32.0); Mean Corpuscular Volume 86.7 fL (81-99); Mean Platelet Vol. 8.9 fl (6.2-12.0); Monocyte# 1.12 X10^3/uL; Monocyte% 10.2 % (0-10); NRBC Flagged by Analyzer 0 % (0-5); Neutrophil # 7.75 X10^3/uL (2.7-7.7); Neutrophil % 70.3 % (47-70); Platelet Count 316 K/mm3 (150-450); RBC Distribution Width CV 14.6 % (11.6-14.6); RBC Distribution Width SD 46.7 fl (35.1-43.9); Red Blood Count 3.54 M/mm3 (4.2-5.4)
[2023-09-24 08:05] LABS: AST(SGOT) 12 U/L (15-37); Alanine Aminotransfer ALT/SGPT 17 U/L (13-56); Albumin, Serum 3.1 g/dL (3.2-5.0); Alkaline Phosphatase 47 U/L (45-117); Anion Gap 4 (5-15); BUN 11 mg/dL (7-18); BUN/Creat Ratio 16.5 RATIO (10-20); Calcium,Total 9.1 mg/dL (8.5-10.1); Chloride 113 mmol/L (98-107); Creatinine, Serum 0.67 mg/dL (0.55-1.02); EST Glomerular Filtration Rate 91 mL/min (>60); Est Glom Filt Rate - Afr Amer 110 mL/min (>60); Estimated Creatinine Clearance 67.36 ml/min; Globulin 3.1 g/dL (2.2-4.2); Glucose 120 mg/dL (74-106); Potassium 3.3 mmol/L (3.5-5.1); Protein, Total 6.2 g/dL (6.4-8.2); Sodium Level 142 mmol/L (136-145)
[2023-09-24] MEDS: Lactated Ringers 1,000 ML 15 ML IV (10:04)
--- NOTE | 2023-09-24 11:35 | COLBX_PTH ---
PATHOLOGY RESULTS PATIENT: FAVIO HE LOC: MS3 U#:[id number] AGE/SX: 78/F [place] [facility] [place]: Dr. Tracie Collins MD : 1945 BED: 1 DIS: 09/25/2023 SPEC #: [id number] RECD: 09/24/23 16:27 STATUS: NORMAN TERRELL #: [id number] KARISSA: 09/24/23 11:[address]: Norberto Iyer DEPT: SURGICAL PATHOLOGY RECD BY: Vianey Clark ENTERED: 09/25/23 07:49 SP TYPE: COLON BX OTHR DR: MD Dr. Gini Syed DO Dr. Jeff Wright, MD Dr. Nana Yaa Koram, MD Tissues: COLON BIOPSY Rectum, NOS Procedures: Surgery Specimen Level IV Comments: @ Ordering doctor for SUIV edited from to @ by AGGIE at 09/25/23 1002 @ Submitting doctor edited from to @ by MELEOD at 09/25/23 1002 HEADER OPERATION: Coloscopy, biopsy, electrohemostasis PRE-OP DIAGNOSIS: Acute lower GI bleeding TISSUE SUBMITTED: A - Random colonic biopsy, B - Rectal ulcer biopsy MICROSCOPIC DIAGNOSIS A. Colon, random biopsy: No pathologic change. B. Rectal ulcer, biopsy: Acute colitis. Fibrinopurulent material. See comment. AM:ghazal 09/28/2023 COMMENT B. Sections show cryptitis and focal crypt abscesses and mild glandular distortion. Transmural lymphoid aggregates and/or fissuring ulcers are not identified. Clinical correlation is suggested. MICROSCOPIC DESCRIPTION Slides are reviewed. GROSS DESCRIPTION A - Received in fixative is one container labeled with the patient's name and designated random colon biopsy. The specimen consists of multiple irregular fragments of light mejia soft tissue that in aggregate measure 1.5 x 0.7 x 0.1 cm. The specimen is totally submitted in one cassette. B - Received in fixative is one container labeled with the patient's name and designated rectal ulcer biopsy. The specimen consists of multiple irregular fragments of light mejia soft tissue that in aggregate measure 0.5 x 0.3 x 0.1 cm. The specimen is totally submitted in one cassette. / HILDA:ghazal 09/25/2023 TC:2 CPT: 35874 x2
--- NOTE | 2023-09-24 11:51 | OP.CCLET_ITS ---
09/24/2023 Gini Ojeda Re : Colonoscopy procedure for Bridgette Roque Dear Rusty This procedure was performed on August. My impressions and recommendations are as follows: Impressions : - Anal fissure found on perianal exam. - Non-bleeding external and internal hemorrhoids. - Anal fissure. Injected and Treated with a heater probe. - A few ulcers in the rectum. Biopsied. Treated with a heater probe. - Diverticulosis in the recto-sigmoid colon, in the sigmoid colon, in the descending colon, in the transverse colon and at the hepatic flexure. - Congested mucosa in the entire examined colon. Biopsied. Recommendations : - [facility]. - Resume regular diet. - Colace capsule(s) orally 100 mg BID. - No repeat colonoscopy due to age. - Continue present medications. - No aspirin, ibuprofen, naproxen, or other non-steroidal anti-inflammatory drugs for 7 days. My findings are described in the full procedure note, which is enclosed. If I can be of further assistance, please feel free to contact me at . Sincerely, Norberto Iyer, 09/24/2023 11:51:19 AM This report has been signed electronically.
--- NOTE | 2023-09-24 11:51 | OP.COLON_ITS ---
Patient Name: Bridgette Roque Procedure Date: 09/24/2023 10:29 AM Date of : 1945 Age: 78 Procedure: Colonoscopy Indications: Hematochezia Providers: Norberto Iyer DO Referring MD: Dane Larsen MD Medicines: Monitored Anesthesia Care Patient Profile: This is an 78 year old female. Refer to note in patient chart for documentation of history and physical. Last Colonoscopy: within the past 3 months. Complications: No immediate complications. Procedure: Pre-Anesthesia Assessment: - Prior to the procedure, a History and Physical was performed, and patient medications and allergies were reviewed. The patient is competent. The risks and benefits of the procedure and the sedation options and risks were discussed with the patient. All questions were answered and informed consent was obtained. Patient identification and proposed procedure were verified by the physician in the pre-procedure area. Mental Status Examination: alert and oriented. Airway Examination: normal oropharyngeal airway and neck mobility. Respiratory Examination: clear to auscultation. CV Examination: normal. Prophylactic Antibiotics: The patient does not require prophylactic antibiotics. Prior Anticoagulants: The patient has taken no anticoagulant or antiplatelet agents. ASA Grade Assessment: II - A patient with mild systemic disease. After reviewing the risks and benefits, the patient was deemed in satisfactory condition to undergo the procedure. The anesthesia plan was to use monitored anesthesia care (MAC). Immediately prior to administration of medications, the patient was re-assessed for adequacy to receive sedatives. The heart rate, respiratory rate, oxygen saturations, blood pressure, adequacy of pulmonary ventilation, and response to care were monitored throughout the procedure. The physical status of the patient was re-assessed after the procedure. After I obtained informed consent, the scope was passed under direct vision. Throughout the procedure, the patient's blood pressure, pulse, and oxygen saturations were monitored continuously. The colonoscope was introduced through the anus and advanced to the cecum, identified by appendiceal orifice and ileocecal valve. The colonoscopy was performed without difficulty. The patient tolerated the procedure well. The quality of the bowel preparation was adequate. Scope In: 11:19:28 AM Scope Withdrawal Time 0 hours 14 minutes 49 seconds Scope Out: 11:40:19 AM Total Procedure Duration Time 0 hours 20 minutes 51 seconds Findings: An anal fissure was found on perianal exam. Non-bleeding external and internal hemorrhoids were found during retroflexion. The hemorrhoids were moderate, large and Grade III (internal hemorrhoids that prolapse but require manual reduction). A 9 mm anal fissure was found in the anal canal. Area was successfully injected with 5 mL of a 0.1 mg/mL solution of epinephrine for drug delivery. Coagulation for hemostasis using heater probe was successful. Estimated blood loss was minimal. A few six mm ulcers were found in the rectum. Oozing was present. Stigmata of recent bleeding were present. Biopsies were taken with a cold forceps for histology. Verification of patient identification for the specimen was done. Coagulation for hemostasis using heater probe was successful. Estimated blood loss was minimal. Multiple small and large-mouthed diverticula were found in the recto-sigmoid colon, sigmoid colon, descending colon, transverse colon and hepatic flexure. An area of mildly congested mucosa was found in the entire colon. Biopsies were taken with a cold forceps for histology. Verification of patient identification for the specimen was done. Estimated blood loss was minimal. Impression: - Anal fissure found on perianal exam. - Non-bleeding external and internal hemorrhoids. - Anal fissure. Injected and Treated with a heater probe. - A few ulcers in the rectum. Biopsied. Treated with a heater probe. - Diverticulosis in the recto-sigmoid colon, in the sigmoid colon, in the descending colon, in the transverse colon and at the hepatic flexure. - Congested mucosa in the entire examined colon. Biopsied. Recommendation: - [facility]. - Resume regular diet. - Colace capsule(s) orally 100 mg BID. - No repeat colonoscopy due to age. - Continue present medications. - No aspirin, ibuprofen, naproxen, or other non-steroidal anti-inflammatory drugs for 7 days. Procedure Code(s): --- Professional --- 59055, 59, Colonoscopy, flexible; with control of bleeding, any method 21244, Colonoscopy, flexible; with biopsy, single or multiple 51564, 59, Colonoscopy, flexible; with directed submucosal injection(s), any substance CPT copyright 2021 [employer]. All rights reserved. The codes documented in this report are preliminary and upon membership assistant review may be revised to meet current compliance requirements. Norberto Iyer DO 09/24/2023 11:51:19 AM This report has been signed electronically. Number of Addenda: 0 Note Initiated On: 09/24/2023 10:29 AM
--- NOTE | 2023-09-24 13:48 | PN_ITS ---
Subjective Subjective Patient seen and examined. She was lying comfortably in bed. She had no active complaints. Review of symptoms otherwise negative. She was admitted with rectal bleeding which has not occurred again. Gastroenterology on board. Objective Data Objective Data Vital Signs: Vital Signs Temp Pulse Resp BP Pulse Ox O2 Del Method 97.8 F 72 18 136/51 H 96 Room Air 09/24/23 12:45 09/24/23 12:45 09/24/23 12:45 09/24/23 12:45 09/24/23 12:45 09/24/23 12:45 Oxygen Delivery Method Room Air Weight: 215 lb 9.793 oz Body Mass Index (BMI) 33.7 Intake & Output: Intake and Output for Last 24 Hours 09/22/23 09/23/23 09/24/23 23:59 23:59 23:59 Intake Total 1209.25 / 1209.25 Balance 1209.25 / 1209.25 Lab / Micro Data 09/24/23 07:25 09/24/23 07:25 Labs: Laboratory Results - last 24 hr 09/23/23 19:40: WBC 11.3 H, RBC 4.06 L, Hgb 11.0 L, Hct 35.3 L, MCV 86.9, MCH 27.1, MCHC 31.2 L, RDW Std Deviation 47.0 H, RDW Coeff of Jaciel 14.6, Plt Count 372, MPV 9.4, Immature Gran % (Auto) 0.400, Neut % (Auto) 70.6 H, Lymph % (Auto) 17.7 L, [place] % (Auto) 9.1, Eos % (Auto) 1.8, Baso % (Auto) 0.4, Absolute Neuts (auto) 8.0 H, Absolute Lymphs (auto) 2.00, Nucleated RBC % 0, Sodium 140, Potassium 3.1 L, Chloride 106, Carbon Dioxide 30.0, Anion Gap 4 L, BUN 12, Creatinine 0.77, Estim Creat Clear Calc 65.24, Est GFR (MDRD) Af Amer 93, Est GFR (MDRD) Non-Af 77, BUN/Creatinine Ratio 15.6, Glucose 113 H, Calcium 9.3, Phosphorus 3.6, Magnesium 1.9, Blood Type A POSITIVE, Antibody Screen NEGATIVE 09/23/23 23:59: Hgb 10.7 L, Hct 34.6 L 09/24/23 03:48: Hgb 11.4 L, Hct 37.5 09/24/23 07:25: WBC 11.0, RBC 3.54 L, Hgb 9.8 L, Hct 30.7 L, MCV 86.7, MCH 27.7, MCHC 31.9 L, RDW Std Deviation 46.7 H, RDW Coeff of Jaciel 14.6, Plt Count 316, MPV 8.9, Immature Gran % (Auto) 0.300, Neut % (Auto) 70.3 H, Lymph % (Auto) 17.4 L, [place] % (Auto) 10.2 H, Eos % (Auto) 1.4, Baso % (Auto) 0.4, Absolute Neuts (auto) 7.8 H, Absolute Lymphs (auto) 1.91, Nucleated RBC % 0, Sodium 142, Potassium 3.3 L, Chloride 113 H, Carbon Dioxide 25.0, Anion Gap 4 L, BUN 11, Creatinine 0.67, Estim Creat Clear Calc 67.36, Est GFR (MDRD) Af Amer 110, Est GFR (MDRD) Non-Af 91, BUN/Creatinine Ratio 16.5, Glucose 120 H, Calcium 9.1, Total Bilirubin 0.50, AST 12 L, ALT 17, Alkaline Phosphatase 47, Total Protein 6.2 L, Albumin 3.1 L, Globulin 3.1, Albumin/Globulin Ratio 1.0 Micro: Microbiology 09/24/23 00:30 Stool Enteric Bacteriology - Final 09/24/23 00:30 Stool Stool Occult Blood (JC) - Final Occult Blood Positive 09/24/23 00:30 Stool Clostridioides difficile (PCR) - Final Physical Exam Const alert, oriented x3 and no apparent distress General Appearance: cooperative and well developed HEENT normocephalic, head/scalp atraumatic, moist oral mucous membranes and oropharynx normal Eyes PERRL and EOMs intact bilaterally Neck no lymphadenopathy and supple Lymph Lymphatic: no lymphadenopathy noted and no lymphedema noted Resp normal respiratory effort, normal air movement and clear to auscultation bilaterally Cardio regular rate, regular rhythm, S1 normal heart sound, S2 normal heart sound and no murmurs GI normal to inspection, nondistended, normoactive bowel sounds, soft to palpation, non-tender and non-distended Extremity normal capillary refill and no clubbing, cyanosis or edema General Extremity: no tenderness to palpation of joints or extremities Skin General Skin Exam: no breakdown and turgor normal Neuro CN's II-XII intact bilaterally, no focal motor deficits, no sensory deficits noted and deep tendon reflexes 2+ bilaterally Motor Exam: strength 5/5 throughout and general weakness Psych thought process normal and cooperative Appearance: appropriate Assessment & Plan Assessment/Plan (1) Acute lower gastrointestinal bleeding: PLAN: Plan #Acute lower GI bleed * Admitted with a complaint of lower GI bleed * currently NPO * GI on board * had colonoscopy today which showed anal fissue, nonbleeding external and inte rnal hemorrhoids, as well as anal fissue and few ulcers in the rectum, as well as diverticulosis in janusz rectosigmoid, sigmoid and descending colon as well as transverse colon. These were biopsied * per GI, to place on regular diet and colace. NO aspirin or any other NSAIDs for the next 7 days. * #Hypokalemia: repolaced. Will trend. #History of metastatic ovarian cancer with peritoneal carcinomatosis * s/p total abdominal hysterectomy with unilateral oopherectomy in 1983. * follows up with oncology. 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 * * #Chronic diarrhea: follows with Dr Iyer on outpatient basis. #Asthma: breathing treatment with bronchodilators. Titrate oxgyen to maintain sats >90% # Paroxysmal A-fib: On Eliquis. This currently on hold. On metoprolol and Cardizem as well as amiodarone #Hyperlipidemia: On statin #Obesity: BMI 33.8. Complicates acute care, expected recovery and prognosis DVT prophylaxis: SCDs. Charges/Coding Visit Charges Inpatient E&M: 54435 Subs Hosp L2
[2023-09-24] MEDS: Furosemide 40 MG Tablet PO (15:41)
[2023-09-24] MEDS: Potassium Chloride Oral Tablet 20 MEQ PO (15:41)
[2023-09-24] MEDS: Metoprolol Tartrate 50 MG Tablet PO ×2 (15:41→20:36)
[2023-09-24] MEDS: Docusate Sodium 100 MG Capsule PO ×2 (15:42→20:38)
[2023-09-24] MEDS: dilTIAZem CD 120 MG Capsule PO ×2 (15:42→20:37)
--- NOTE | 2023-09-24 16:03 | CASEMGMT ---
Met with?patient to complete RENTERIA form. RENTERIA form explained to patient who voiced understanding and signed form. Original form placed in pt?s chart and copy provided to?patient. Iva Vera, Discharge Planning Asst
--- NOTE | 2023-09-24 16:45 | CHAPLAIN ---
Type of Pastoral Visit _x__ Initial Visit ___ Follow-up Visit ___ On-call Visit ___ General Patient Visit ___ Spiritual Assessment ___ Family Conference ___ Bereavement ___ Rapid Response ___ Code Blue ___ Other (describe below) Pastoral Care Referral From _x__ Patient ___ Family ___ Nurse ___ Physician ___ Bar Helper ___ Special Population Paraprofessional ___ Other (describe below) Sacrament/Intervention _x__ Active listening ___ Anointing ___ Yarsani ___ Bereavement ___ Communion _x__ Poly exploration ___ _x__ Life review _x__ Prayer ___ Reconciliation ___ Sacrament of Sick _x__ Supportive presence ___ Wedding ___ Other (describe below) Pastoral Comments a few questions about life and how patient handles situations led to a conversation about her life, 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
[2023-09-24] MEDS: Amiodarone 200 MG Tablet PO (20:36)
[2023-09-24] MEDS: Atorvastatin Calcium 10 MG Tablet PO (20:37)
[2023-09-25 02:24] VITALS: BP 135/56; PULSE 64; RESP 16; TEMP 36.6; O2SAT 98
[2023-09-25 02:41] VITALS: O2SAT 95
[2023-09-25 05:59] VITALS: BMI 33.8
[2023-09-25 06:32] LABS: Absolute Lymphocyte Count 2.12 X10^3/uL (0.83-4.51); Absolute Neutrophil Count 11.6 X10^3/uL (2.0-7.7); Basophil# 0.04 X10^3/uL; Basophil% 0.3 % (0-1); Eosinophil# 0.28 X10^3/uL; Eosinophils% 1.8 % (0-5); Hematocrit 29.4 % (37-47); Hemoglobin 8.9 g/dL (12.0-15.0); Lymphocyte # 2.12 X10^3/ul (0.83-4.51); Lymphocyte % 13.7 % (19-41); Mean Corp Hgb Conc 30.3 g/dL (32-36); Mean Corpuscular Hgb 27.1 pg (27.0-32.0); Mean Corpuscular Volume 89.4 fL (81-99); Mean Platelet Vol. 9.3 fl (6.2-12.0); Monocyte% 8.4 % (0-10); NRBC Flagged by Analyzer 0 % (0-5); Neutrophil # 11.61 X10^3/uL (2.7-7.7); Neutrophil % 75.2 % (47-70); Platelet Count 282 K/mm3 (150-450); RBC Distribution Width CV 14.9 % (11.6-14.6); RBC Distribution Width SD 48.5 fl (35.1-43.9); Red Blood Count 3.29 M/mm3 (4.2-5.4); White Blood Count 15.4 K/mm3 (4.4-11.0)
[2023-09-25 06:36] LABS: Differential Indicated SCAN CRITERIA MET
[2023-09-25 07:04] LABS: Anion Gap 5 (5-15); BUN 12 mg/dL (7-18); BUN/Creat Ratio 19.8 RATIO (10-20); Calcium,Total 8.5 mg/dL (8.5-10.1); Chloride 108 mmol/L (98-107); Creatinine, Serum 0.61 mg/dL (0.55-1.02); EST Glomerular Filtration Rate 101 mL/min (>60); Est Glom Filt Rate - Afr Amer 122 mL/min (>60); Estimated Creatinine Clearance 67.36 ml/min; Glucose 116 mg/dL (74-106); Potassium 3.3 mmol/L (3.5-5.1); Sodium Level 138 mmol/L (136-145)
[2023-09-25 08:00] VITALS: PULSE 56
[2023-09-25] MEDS: 0.9% Saline Lock 10 ML Syringe IV (09:28)
[2023-09-25] MEDS: Pantoprazole Sodium 40 MG in 0.9% Normal Saline (100mL MB+) 100 ML 330 MG IV (09:28)
[2023-09-25 09:31] VITALS: BP 123/49; PULSE 65; RESP 18; TEMP 37.1; O2SAT 97
[2023-09-25] MEDS: Potassium Chloride Oral Tablet 20 MEQ 40 MEQ PO (11:20)
[2023-09-25] MEDS: Docusate Sodium 100 MG Capsule PO (11:21)
[2023-09-25 11:26] VITALS: PULSE 62
[2023-09-25] MEDS: dilTIAZem CD 120 MG Capsule PO (11:26)
[2023-09-25] MEDS: Metoprolol Tartrate 50 MG Tablet PO (11:26)
[2023-09-25] MEDS: Furosemide 40 MG Tablet PO (11:27)
--- NOTE | 2023-09-25 12:05 | PHA.DC.MR.R ---
Pharmacy IN Med Reconciliation Pharmacy Service has performed discharge medication reconciliation for this patient. The patient's discharge medication list was reviewed for discrepancies and discrepancies were resolved. Medications at Discharge Home Medications calcium carbonate 200 mg calcium (500 mg) chewable tablet (Tums) 200 mg PO DAILY supplement 10/09/17 rosuvastatin 5 mg tablet (Crestor) 5 mg PO QODAY CHOLESTEROL 10/09/17 coenzyme Q10 100 mg capsule 100 mg PO DAILY 10/23/20 zoledronic acid 4 mg intravenous solution 4 mg IV .ONCE 07/02/21 cholecalciferol (vitamin D3) 50 mcg (2,000 unit) capsule 7,000 unit PO DAILY supplement 03/16/23 apixaban 5 mg tablet (Eliquis) 5 mg PO BID #180 tabs 06/01/23 furosemide 40 mg tablet (Lasix) 40 mg PO BID #60 tabs 07/20/23 amiodarone 200 mg tablet 200 mg PO QHS 08/25/23 diltiazem HCl 120 mg capsule,extended release 24 hr (Cardizem CD) 120 mg PO BID 08/25/23 metoprolol tartrate 50 mg tablet 50 mg PO BID #180 tabs 09/02/23 ascorbic acid (vitamin C) 1,000 mg tablet (C-1000) 2 g PO DAILY 09/23/23 potassium chloride 20 mEq tablet,extended release 20 meq PO DAILY 09/23/23 zinc 50 mg capsule 50 mg PO DAILY 09/23/23
--- NOTE | 2023-09-25 12:22 | CASEMGMT ---
Social Work SW met with pt to discuss advance directives.? Pt confirms she has completed a living will and health care POA naming her daughter Aurora Cortes. Pt notified that documents are not on file at [facility] and SW requested they be brought in for scanning into the EMR. MARCELINO Chacon
--- NOTE | 2023-09-25 12:25 | PCM.DC.SUM ---
Providers Date of Admission: 09/23/23 Date of Discharge: 09/25/23 Primary Care Physician: Dr. Gini Ojeda, DO Consultations 09/23/23 23:22 Consult: Gastroenterology Routine Consulting Provider: [facility] Reason for Consult: BRBPR EMERGENT Consult: No MD Notified: Yes Date Notified: 09/23/23 Time Notified: 22:51 Method of Notification: Text Reason For Visit: GI BLEED Diagnosis Discharge Diagnosis (1) Acute lower gastrointestinal bleeding: Status: Acute Code(s): K92.2 - Gastrointestinal hemorrhage, unspecified Plan #Acute lower GI bleed Admitted with a complaint of lower GI bleed currently NPO GI on board had colonoscopy today which showed anal fissue, nonbleeding external and internal hemorrhoids, as well as anal fissue and few ulcers in the rectum, as well as diverticulosis in janusz rectosigmoid, sigmoid and descending colon as well as transverse colon. These were biopsied per GI, to place on regular diet and colace. NO aspirin or any other NSAIDs for the next 7 days. #Hypokalemia: repolaced. Will trend. #History of metastatic ovarian cancer with peritoneal carcinomatosis s/p total abdominal hysterectomy with unilateral oopherectomy in 1983. follows up with oncology. 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 #Chronic diarrhea: follows with Dr Iyer on outpatient basis. #Asthma: breathing treatment with bronchodilators. Titrate oxgyen to maintain sats >90% # Paroxysmal A-fib: On Eliquis. This currently on hold. On metoprolol and Cardizem as well as amiodarone #Hyperlipidemia: On statin #Obesity: BMI 33.8. Complicates acute care, expected recovery and prognosis DVT prophylaxis: SCDs. Medications at Discharge Home Medications calcium carbonate 200 mg calcium (500 mg) chewable tablet (Tums) 200 mg PO DAILY supplement 10/09/17 rosuvastatin 5 mg tablet (Crestor) 5 mg PO QODAY CHOLESTEROL 10/09/17 coenzyme Q10 100 mg capsule 100 mg PO DAILY 10/23/20 zoledronic acid 4 mg intravenous solution 4 mg IV .ONCE 07/02/21 cholecalciferol (vitamin D3) 50 mcg (2,000 unit) capsule 7,000 unit PO DAILY supplement 03/16/23 apixaban 5 mg tablet (Eliquis) 5 mg PO BID #180 tabs 06/01/23 furosemide 40 mg tablet (Lasix) 40 mg PO BID #60 tabs 07/20/23 amiodarone 200 mg tablet 200 mg PO QHS 08/25/23 diltiazem HCl 120 mg capsule,extended release 24 hr (Cardizem CD) 120 mg PO BID 08/25/23 metoprolol tartrate 50 mg tablet 50 mg PO BID #180 tabs 09/02/23 ascorbic acid (vitamin C) 1,000 mg tablet (C-1000) 2 g PO DAILY 09/23/23 potassium chloride 20 mEq tablet,extended release 20 meq PO DAILY 09/23/23 zinc 50 mg capsule 50 mg PO DAILY 09/23/23 Hospital Course Operations None Procedures Colonoscopy Summary of Care Provided Minutes Spent on Discharge: 55 Hospital Course: Patient is an 78-year-old female with a past medical history as outlined which includes ovarian cancer s/p total abdominal hysterectomy with oophorectomy. She was admitted to the ED on 09/23/2023 with a complaint of diarrhea with resultant bright red blood. Rectum. He had gone to a local restaurant and eating out with friends and/subsequently felt ill when she went home and started having the profuse bleeding. To mitigate that with the diarrhea. She did have a history of hemorrhoids for which she had had a colonoscopy on 08/27/2023 which showed nonbleeding thrombosed prolapsed external and internal hemorrhoids which were banded and diverticulosis in the rectosigmoid colon region as well as in the sigmoid region and 3 bleeding colonic angiodysplastic lesions which were cauterized. Hemoglobin was 11.3 on admission. She was admitted and managed for lower GI bleed. Gastroenterology was consulted. Bleeding subsequently stopped on its own. She was on Eliquis which was held. She had colonoscopy which showed anal fissure, nonbleeding external and internal hemorrhoids, as well as few ulcers in the rectum, as well as diverticulosis in the rectosigmoid, sigmoid and descending colon as well as transverse colon. These were biopsied. As stated, rectal bleeding with no acute injury felt well. Hemoglobin also remained stable. By gastroenterology patient could resume Eliquis patient was counseled to stay off of aspirin and ibuprofen and other NSAIDs for at least 7 days. She was discharged home on 09/25/2023 next follow-up with her primary care doctor and gastroenterology within 1 to 2 weeks. Patient was seen and examined prior to discharge. She felt well and had no complaints. She had an uneventful night. Review systems otherwise negative. Labs and vitals reviewed. Home medication reviewed and reconciled. Physical Exam Const alert, oriented x3 and no apparent distress General Appearance: cooperative, comfortable, well kempt and well developed Orientation / Consciousness: awake HEENT normocephalic, head/scalp atraumatic, hearing grossly normal bilaterally, moist oral mucous membranes and oropharynx normal Mouth: oral and palatal mucosa normal and dry mucous membranes Eyes PERRL and EOMs intact bilaterally Neck no lymphadenopathy and supple Lymph Lymphatic: no lymphadenopathy noted and no lymphedema noted Resp normal respiratory effort, normal air movement and clear to auscultation bilaterally Cardio regular rate, regular rhythm, S1 normal heart sound, S2 normal heart sound and no murmurs GI normal to inspection, nondistended, normoactive bowel sounds, soft to palpation, non-tender and non-distended Extremity normal to inspection, full ROM, normal capillary refill and no clubbing, cyanosis or edema General Extremity: no tenderness to palpation of joints or extremities Skin no rashes or lesions noted General Skin Exam: no breakdown and turgor normal Neuro oriented x3, CN's II-XII intact bilaterally, moves all extremities, no focal motor deficits, no sensory deficits noted and deep tendon reflexes 2+ bilaterally Sensorium / Orientation: awake and alert Motor Exam: strength 5/5 throughout and general weakness Psych thought process normal and cooperative Appearance: appropriate Weight / BMI Weight Weight: 215 lb 9.793 oz Body Mass Index (BMI) 33.8 ABG / Lab / Microbiology Data 09/25/23 06:03 09/25/23 06:03 Laboratory: Laboratory Results - last 24 hr 09/25/23 06:03: WBC 15.4 H, RBC 3.29 L, Hgb 8.9 L, Hct 29.4 L, MCV 89.4, MCH 27.1, MCHC 30.3 L D, RDW Std Deviation 48.5 H, RDW Coeff of Jaciel 14.9 H, Plt Count 282, MPV 9.3, Immature Gran % (Auto) 0.600, Neut % (Auto) 75.2 H, Lymph % (Auto) 13.7 L, [place] % (Auto) 8.4, Eos % (Auto) 1.8, Baso % (Auto) 0.3, Absolute Neuts (auto) 11.6 H, Absolute Lymphs (auto) 2.12, Nucleated RBC % 0, Sodium 138, Potassium 3.3 L, Chloride 108 H, Carbon Dioxide 25.0, Anion Gap 5, BUN 12, Creatinine 0.61, Estim Creat Clear Calc 67.36, Est GFR (MDRD) Af Amer 122, Est GFR (MDRD) Non-Af 101, BUN/Creatinine Ratio 19.8, Glucose 116 H, Calcium 8.5 Microbiology: Microbiology 09/24/23 00:30 Stool Enteric Bacteriology - Final 09/24/23 00:30 Stool Stool Occult Blood (JC) - Final Occult Blood Positive 09/24/23 00:30 Stool Clostridioides difficile (PCR) - Final D/C Instructions Discharge Diet: Low fat / Low cholesterol Discharge Activity: Return to Normal Activity Weight Bearing Status: Weight bearing as tolerated Meaningful Use Info Meaningful Use Diagnoses (Choose all that apply): None applicable Discharge Plan Admission Admit Date/Time: 09/23/23 22:49 Primary Reason for Your Visit: lower GI bleed Attending Provider: Tracie Collins Primary Care Provider: Gini Ojeda Consulting Providers: Isabel Olivarez Instructions Patient Instructions: GI Bleeding Causes and Tests, Lower GI Endoscopy, GI Bleeding Ch, ED Lower GI Bleeding (Stable) Additional Instructions / Restrictions: no aspirin, ibuprofen or any other NSAIDs for at least 7 days after discharge. Discharge Orders/Prescriptions Prescriptions: Continued rosuvastatin [Crestor] 5 mg tablet 5 mg PO QODAY calcium carbonate [Tums] 200 mg calcium (500 mg) tablet,chewable 200 mg PO DAILY cholecalciferol (vitamin D3) 50 mcg (2,000 unit) capsule 7,000 unit PO DAILY coenzyme Q10 100 mg capsule 100 mg PO DAILY zoledronic acid 4 mg recon soln 4 mg IV .ONCE Rx Instructions: injection every 6 months metoprolol tartrate 50 mg tablet 50 mg PO BID Qty: 180 3RF amiodarone 200 mg tablet 200 mg PO QHS diltiazem HCl [Cardizem CD] 120 mg capsule,extended release 24hr 120 mg PO BID zinc 50 mg capsule 50 mg PO DAILY ascorbic acid (vitamin C) [C-1000] 1,000 mg tablet 2 g PO DAILY potassium chloride 20 mEq tablet extended release 20 meq PO DAILY Eliquis 5 mg tablet 5 mg PO BID Qty: 180 4RF furosemide [Lasix] 40 mg tablet 40 mg PO BID Qty: 60 3RF Referrals / Follow Up: Gini Ojeda DO [Primary Care Provider] - Within 1 Week Norberto Iyer DO [Med Staff - Active Staff] - 12/09/23 11:00 am Disposition Disposition (needs filled in before D/C Order can be placed): Home, Self Care Charges/Coding Visit Charges Inpatient E&M: 30337 Disch Hosp >30min
--- NOTE | 2023-09-25 12:43 | CASEMGMT ---
Pt states that she feels safe being DC today and that her friend is picking her up. Pt declines the need for outpt Tx or HHC. Denies further needs.
[2023-09-25] MEDS: Potassium Chloride Oral Tablet 20 MEQ PO (13:04)
== END 2023-09-25 13:16 | disposition home or self-care (01) ==
LOC: ED 22:58 → MS3 23:03
PROVIDERS: Internal Medicine Gastroenterology; Admitting Provider Family Medicine; Emergency Provider Emergency Medicine; PCP Internal Medicine; Referring Provider Emergency Medicine; Visit Provider Student in an Organized Health Care Education/Training Program
PROC: 0DJD8ZZ Inspection of Lower Intestinal Tract, Via Natural or Artificial Opening Endoscopic (ICD-10-PCS; CPT 45378; principal; 2023-09-24 11:25)
DX: K92.2 Gastrointestinal hemorrhage, unspecified (principal); J44.9 Chronic obstructive pulmonary disease, unspecified; I48.0 Paroxysmal atrial fibrillation; E78.5 Hyperlipidemia, unspecified; K64.4 Residual hemorrhoidal skin tags; K52.9 Noninfective gastroenteritis and colitis, unspecified; Z79.01 Long term (current) use of anticoagulants; K63.5 Polyp of colon; I10 Essential (primary) hypertension; K57.30 Diverticulosis of large intestine without perforation or abscess without bleeding; K64.8 Other hemorrhoids; K64.2 Third degree hemorrhoids; K60.2 Anal fissure, unspecified; E87.6 Hypokalemia; E66.9 Obesity, unspecified; Z68.33 Body mass index [BMI] 33.0-33.9, adult; Z79.899 Other long term (current) drug therapy
CPT/HCPCS: 45382; 45380; 36415; 80048; 80053; 82274; 83735; 84100; 85014; 85018; 85025; 86850; 86900; 86901; 87493; 87506; 88305; 94668; 96361; 96365; 96366; 96375; 97802; 99221; 99284; J7030; J7120; A4216; G0378; J2405

== ENCOUNTER 2023-09-27 14:33 | Emergency (ER) | payer MEDICARE, SELFPAY ==
[2023-09-27 14:34] VITALS: BP 132/59; PULSE 70; RESP 18; TEMP 36.3; O2SAT 100; BMI 34.4
--- NOTE | 2023-09-27 15:00 | CT_ITS ---
STUDY: CTA Chest WO/W Contrast Injection 09/27/2023 3:49 PM REASON FOR EXAM: Female, 78 years old. PE TECHNIQUE: The examination was performed with the intravenous administration of with and without IV 100mL Isovue-370 contrast material. Post-processing of the angiographic images was performed, with axial imaging and 3D reconstruction. MIPS images were obtained. Individualized dose optimization techniques were used for this CT. COMPARISON: None. FINDINGS: There are degenerative changes of the shoulders. There is no pneumothorax. There is no demonstrated pleural abnormality. 5 mm left upper lobe subpleural nodule. Series 2 image 2 2. Right upper lobe nodule measures 2.5 mm. Series 2 image 220. Right upper lobe 3 mm subpleural nodule. Series 2 image 205. Right lower lobe subpleural nodule measures 6.5 mm. Series 2 image 57. There are calcifications of the coronary arteries. Normal mediastinum. Normal hilar regions. Normal pulmonary arteries. There is atherosclerotic calcification of the aortic arch with tortuosity and elongation of the aortic arch and descending thoracic aorta. There are multi-level degenerative changes of the thoracic spine. There are no acute findings of the upper abdomen. CT/CTA Chest W/WO Contrast IMPRESSION: No demonstrated pulmonary embolism or arterial dissection. Bilateral pulmonary nodules. Fleischner Society Guidelines (MacMahon, et al. Radiology 2017; 284(1):228-43) suggest that no follow-up is necessary for patients with a low or high risk of malignancy. Electronically Signed: Ruddy Palma MD at 15:52 EST ,
--- NOTE | 2023-09-27 15:01 | CT_ITS ---
STUDY: CT Abdomen And Pelvis W/ Contrast Injection 09/27/2023 3:54 PM REASON FOR EXAM: Female, 78 years old. Abdominal pain abdominal pain Individualized dose optimization techniques were used for this CT. COMPARISON: 10.11.20 TECHNIQUE: CT Abdomen And Pelvis W/ Contrast Injection IV 100mL Isovue-370 FINDINGS: There are atherosclerotic calcifications of visualized coronary arteries. Right lower lobe pulmonary nodule. Please see CT of the chest for details. CT chest was done earlier today. There is hepatomegaly with diffuse hepatic enlargement. There are surgical clips in the gallbladder fossa consistent with a prior cholecystectomy. Normal spleen. Normal pancreas. Normal bilateral adrenal glands. No acute findings of the right kidney. No acute findings of the left kidney. Normal visualized stomach. Right lower quadrant small bowel anastomosis. There are multiple colonic diverticula consistent with diverticulosis. The appendix is visualized and appears normal. There are calcifications of the abdominal aorta. This is consistent for atherosclerotic disease. There is NO abdominal aortic aneurysm. Vascular workup can be obtained based on clinical correlation. Normal inferior vena cava. Subcentimeter mesenteric lymph nodes. Diffuse omental nodularities. Umbilical hernia containing omental nodularities. Ventral hernia containing omentum nodularities and small bowel. Lower midline ventral hernia containing large amount of small bowel. The urinary bladder is distended. This can suggest urinary retention. There is absence of the uterus consistent with a prior hysterectomy. Normal abdominal wall. There are diffuse degenerative changes of the visualized lumbar spine. There is bilateral neural foraminal stenosis at L4-5 and L5-S1. CT/Abdomen/Pelvis W IV Cont ONLY IMPRESSION: (NOT LISTED IN ORDER OF SIGNIFICANCE) Diffuse omental metastatic disease. Large midline ventral hernia containing nonobstructed small bowel. Hysterectomy changes. Other findings as above. Electronically Signed: Ruddy Palma MD at 16:00 EST ,
[2023-09-27 15:17] LABS: Absolute Lymphocyte Count 1.76 X10^3/uL (0.83-4.51); Absolute Neutrophil Count 9.3 X10^3/uL (2.0-7.7); Basophil# 0.05 X10^3/uL; Basophil% 0.4 % (0-1); Eosinophils% 1.6 % (0-5); Lymphocyte # 1.76 X10^3/ul (0.83-4.51); Lymphocyte % 13.9 % (19-41); Mean Corp Hgb Conc 30.6 g/dL (32-36); Mean Corpuscular Volume 88.2 fL (81-99); Mean Platelet Vol. 9.2 fl (6.2-12.0); Monocyte# 1.26 X10^3/uL; NRBC Flagged by Analyzer 0 % (0-5); Neutrophil # 9.32 X10^3/uL (2.7-7.7); Neutrophil % 73.8 % (47-70); Platelet Count 366 K/mm3 (150-450); RBC Distribution Width CV 14.6 % (11.6-14.6); RBC Distribution Width SD 47.1 fl (35.1-43.9); Red Blood Count 4.08 M/mm3 (4.2-5.4); White Blood Count 12.6 K/mm3 (4.4-11.0)
[2023-09-27] MEDS: 0.9% Normal Saline (1000mL) 1,000 ML 125 ML IV (15:35)
[2023-09-27 15:45] LABS: ALB/GLOB Ratio 0.9 RATIO (0.9-2.4); AST(SGOT) 16 U/L (15-37); Alanine Aminotransfer ALT/SGPT 18 U/L (13-56); Albumin, Serum 3.4 g/dL (3.2-5.0); Alkaline Phosphatase 55 U/L (45-117); Anion Gap 6 (5-15); BUN 10 mg/dL (7-18); BUN/Creat Ratio 13.4 RATIO (10-20); Calcium,Total 9.1 mg/dL (8.5-10.1); Chloride 104 mmol/L (98-107); Creatinine, Serum 0.74 mg/dL (0.55-1.02); EST Glomerular Filtration Rate 80 mL/min (>60); Est Glom Filt Rate - Afr Amer 96 mL/min (>60); Globulin 3.8 g/dL (2.2-4.2); Glucose 110 mg/dL (74-106); Lipase 33 U/L (13-75); Potassium 3.8 mmol/L (3.5-5.1); Protein, Total 7.2 g/dL (6.4-8.2); Sodium Level 139 mmol/L (136-145)
--- NOTE | 2023-09-27 16:15 | EX.ED.DYSGE1 ---
HPI <MANGO Sanchez - Last Filed: 09/27/23 16:21> History of Present Illness Chief Complaint: Abd Pain Narrative Narrative: Patient is an 78-year-old female with history of atrial fibrillation who was recently admitted to the hospital and discharged 2 days ago secondary to rectal bleeding. Patient is currently off her Eliquis, she had a GI workup and was discharged 2 days ago. Other past medical history is history of ovarian cancer which she is currently getting worked up, hyperlipidemia, hypertension. Patient states that she is been having pain to the right mid rib, that radiates to her right upper abdomen. Patient states this hurts worse with deep breathing, movement, palpation. She is here for evaluation. Denies any nausea vomiting or fever or chills. PFSH <MANGO Sanchez - Last Filed: 09/27/23 16:21> [facility] Medical History Anemia Asthma Atrial fibrillation with rapid ventricular response (10/12/20) Atrial flutter with rapid ventricular response (10/12/20) Bilateral carotid artery stenosis Bladder prolapse Calculus of gallbladder with chronic cholecystitis without obstruction Cardiology follow-up encounter Carpal tunnel syndrome, bilateral Cellulitis Cholelithiasis Chronic cholecystitis COPD (chronic obstructive pulmonary disease) Diarrhea Essential (primary) hypertension Fatty liver History of cardioversion Hyperlipemia Multiple thyroid nodules Non-smoker Nonrheumatic mitral valve stenosis with insufficiency Osteopenia Ovarian cancer Paresthesia Peritoneal carcinomatosis Right lower lobe pulmonary nodule Sciatica Shortness of breath on exertion Thyroid nodule Vitamin D deficiency Home Medications calcium carbonate 200 mg calcium (500 mg) chewable tablet (Tums) 200 mg PO DAILY supplement 10/09/17 [History Last Taken Unknown] rosuvastatin 5 mg tablet (Crestor) 5 mg PO QODAY CHOLESTEROL 10/09/17 [History Last Taken Unknown] coenzyme Q10 100 mg capsule 100 mg PO DAILY 10/23/20 [History Last Taken Unknown] zoledronic acid 4 mg intravenous solution 4 mg IV .ONCE 07/02/21 [History Last Taken Unknown] cholecalciferol (vitamin D3) 50 mcg (2,000 unit) capsule 7,000 unit PO DAILY supplement 03/16/23 [History Last Taken Unknown] apixaban 5 mg tablet (Eliquis) 5 mg PO BID #180 tabs 06/01/23 [Rx Last Taken 08/24/23] furosemide 40 mg tablet (Lasix) 40 mg PO BID #60 tabs 07/20/23 [Rx Last Taken Unknown] amiodarone 200 mg tablet 200 mg PO QHS 08/25/23 [History Last Taken Unknown] diltiazem HCl 120 mg capsule,extended release 24 hr (Cardizem CD) 120 mg PO BID 08/25/23 [History Last Taken 08/27/23] metoprolol tartrate 50 mg tablet 50 mg PO BID #180 tabs 09/02/23 [Rx Last Taken Unknown] ascorbic acid (vitamin C) 1,000 mg tablet (C-1000) 2 g PO DAILY 09/23/23 [History Last Taken Unknown] potassium chloride 20 mEq tablet,extended release 20 meq PO DAILY 09/23/23 [History Last Taken Unknown] zinc 50 mg capsule 50 mg PO DAILY 09/23/23 [History Last Taken Unknown] Allergy/AdvReac Type Severity Reaction Status Date / Time morphine AdvReac Severe Nausea/Vom/ Verified 09/27/23 14:34 Diarrhea penicillin G AdvReac Unknown Unknown Verified 09/27/23 14:34 Family History Father CAD (coronary artery disease) Diabetes Mother Lymphoma Sister Colon cancer Brother Colon cancer Surgical History H/O nasal polypectomy History of cholecystectomy (10/23/17) History of colonoscopy History of exploratory laparotomy (10/2020) History of hernia repair (10/2020) History of hysterectomy with unilateral oophorectomy (1983) History of shoulder replacement (2019) Status post laser ablation of incompetent vein Social History household members: spouse Smoking Status: Never smoker second hand exposure: No alcohol intake: never details: rare substance use type: does not use caffeine: No what type of physical activity do you participate in: walking frequency: 3-4 times per week duration: < 15 minutes/day patricia/roman catholic: Gnosticism seatbelt use: always do you feel safe at home: Yes ROS <MANGO Sanchez - Last Filed: 01/28/24 16:21> ROS ED ROS Narrative Constitutional: Negative for fever, chills, weight loss, weakness Eyes: Negative for vision loss, vision change, double vision ENT: Negative for any sore throat, ear pain, congestion Cardiovascular: Negative for any chest pain, tightness, palpitations Respiratory: Negative for any cough, sputum production, hemoptysis, dyspnea, dyspnea on exertion, orthopnea Gastrointestinal: Negative for any nausea, vomiting, diarrhea, constipation, blood in stool, blood in vomit. Positive for abdominal pain, right mid rib pain : Negative for any urinary frequency, dysuria, retention, blood in urine Muscle skeletal: Negative for any myalgias, arthralgias, neck pain, back pain Neurological: Negative for any headache, syncope, paresthesias, dizziness Skin: Negative for any rashes, lumps, itching, abrasions, lacerations Psychiatric: Negative for any depression, anxiety, stress, suicidal ideation, homicidal ideation Hematologic: Negative for any easy bruising, excessive bruising, easy bleeding Allergies: Negative for any eczema, hives, rash EXAM <MANGO Sanchez - Last Filed: 09/27/23 16:21> Physical Exam Narrative Exam Narrative: Vital signs reviewed. HEET: Head normocephalic atraumatic, TMs clear bilaterally. Posterior pharynx is clear, moist mucous membranes. Nares clear bilaterally. Neck: Supple with no lymphadenopathy or tenderness. No signs of meningismus. Cardiac: Regular rate and rhythm no murmurs gallops or rubs, equal peripheral pulses bilaterally. Respiratory: Lungs clear to auscultation bilaterally. Right anterior and mid rib tenderness. Abdomen: Soft, nondistended. No abdominal bruit or pulsatile masses. No hepatosplenomegaly. Tenderness in the right upper quadrant radiates around the right ribs. Extremities: No peripheral edema, no signs of gross trauma or deformity. Active full range of motion of all extremities. Neuro: Cranial nerves II through XII intact, no focal neurological deficits. Skin: Clean dry and intact with no rash, purpura, petechiae, vesicles or pustules. Backs/flank: No CVA tenderness, no midline spinal tenderness, no deformity. Psych: Normal mood and affect. No SI, HI or acute psychosis. Const Vital Signs: 09/27/23 14:34 09/27/23 16:26 Temperature 97.4 F L Temperature Source Temporal Pulse Rate 70 102 H Respiratory Rate 18 16 Blood Pressure 132/59 H 125/70 H Blood Pressure Mean 83 88 Pulse Ox 100 98 Oxygen Delivery Method Room Air Positive well nourished and well developed General Appearance ED: well developed <Dr. See Levin MD - Last Filed: 09/27/23 16:36> Physical Exam Const Vital Signs: 09/27/23 14:34 09/27/23 16:26 Temperature 97.4 F L Temperature Source Temporal Pulse Rate 70 102 H Respiratory Rate 18 16 Blood Pressure 132/59 H 125/70 H Blood Pressure Mean 83 88 Pulse Ox 100 98 Oxygen Delivery Method Room Air MDM <MANGO Sanchez - Last Filed: 09/27/23 16:21> MDM Lab Data Labs: Laboratory Results - last 24 hr 09/27/23 15:10 WBC 12.6 H RBC 4.08 L Hgb 11.0 L Hct 36.0 L MCV 88.2 MCH 27.0 MCHC 30.6 L RDW Std Deviation 47.1 H RDW Coeff of Jaciel 14.6 Plt Count 366 MPV 9.2 Immature Gran % (Auto) 0.300 Neut % (Auto) 73.8 H Lymph % (Auto) 13.9 L Mellette % (Auto) 10.0 Eos % (Auto) 1.6 Baso % (Auto) 0.4 Absolute Neuts (auto) 9.3 H Absolute Lymphs (auto) 1.76 Nucleated RBC % 0 Sodium 139 Potassium 3.8 Chloride 104 Carbon Dioxide 29.0 Anion Gap 6 BUN 10 Creatinine 0.74 Estim Creat Clear Calc 68.00 Est GFR (MDRD) Af Amer 96 Est GFR (MDRD) Non-Af 80 BUN/Creatinine Ratio 13.4 Glucose 110 H Calcium 9.1 Total Bilirubin 0.60 AST 16 ALT 18 Alkaline Phosphatase 55 Total Protein 7.2 Albumin 3.4 Globulin 3.8 Albumin/Globulin Ratio 0.9 Lipase 33 Radiography Diagnostic Testing: Clinical Impression(s) from Imaging Studies Chest CTA 09/27/23 15:00 IMPRESSION: No demonstrated pulmonary embolism or arterial dissection. Bilateral pulmonary nodules. Fleischner Society Guidelines (MacMahon, et al. Radiology 2017; 284(1):228-43) suggest that no follow-up is necessary for patients with a low or high risk of malignancy. Electronically Signed: Ruddy Palma MD at 15:52 EST , Abdomen/Pelvis CT 09/27/23 15:01 IMPRESSION: (NOT LISTED IN ORDER OF SIGNIFICANCE) Diffuse omental metastatic disease. Large midline ventral hernia containing nonobstructed small bowel. Hysterectomy changes. Other findings as above. Electronically Signed: Ruddy Palma MD at 16:00 EST , Treatment and Re-Evaluation :: Patient appears to be in no obvious distress, vital signs are stable. Presenting to the emergency department right-sided chest wall pain, right upper abdominal pain. Differential diagnosis includes bowel obstruction, pulmonary embolus, pneumonia, muscle strain. Patient did receive basic laboratory values, patient's CBC shows a leukocytosis with a white blood count 12.6 however this is improvement from 2 days ago and was 15.4. Patient's hemoglobin is 11.0. This is also an improvement. Patient is baseline. Chemistries were unremarkable, lipase was negative. Patient did receive a CT of the chest to rule any pulmonary embolus, pneumonia. CT of the chest shows no demonstrated pulmonary embolism or arterial dissection. Patient's abdominal CT shows diffuse omental metastatic disease which she has had in the past. She is currently get this worked up, this is not new. No other findings. At this time, do believe the patient suffering from a muscle strain, she will need to use ibuprofen, Tylenol, as well as ice and heat. She was given strict return precaution, all questions answered, patient stable for discharge. <Dr. See Levin MD - Last Filed: 09/27/23 16:36> [facility] Narrative Medical decision making narrative: I have personally performed a face to face assessment of the patient and have reviewed the SHALOM Note. I performed a substantive portion of the visit including all aspects of the following. My rand findings include: History: Patient presents for right lateral and anterior rib and right upper quadrant region pain. She was just in the hospital for GI bleeding. Eliquis was stopped. She states she has not had any further bleeding. When she was in the hospital she had some of this discomfort. She thought it was due to using a bar to get up from the bathroom. She would pull herself up. It is on a different side than her bar at home. She does hurt when she moves her right arm. If she takes a deep breath she has a catch in her breathing but does not actually feel short of breath. No nausea vomiting. No fevers. No acute trauma or fall. Exam: Patient is awake alert nontoxic. Lungs sound clear. Oxygen saturation is very normal at 100% on room air. But she does have some tenderness both in the right lower and lateral rib cage as well as slightly in the right upper quadrant just along the edge of the rib. But is also very reproduced with twisting reaching forward or pulling herself up. Overall clinically this seems more musculoskeletal. Medical Decision Making: With her complex history and recent admission we did pursue workup. White count was minimally up. Hemoglobin was low but it showed a rise from inpatient. Electrolytes show no marked abnormalities. Liver function test lipase were overall normal. With her complex history, cancer, off Eliquis we did do CT of both abdomen as well as chest no sign of pulmonary embolus dissection or other acute process. I think this is likely musculoskeletal. Lab Data Attestation: I reviewed the patient's lab results. Labs: Laboratory Results - last 24 hr 09/27/23 15:10 WBC 12.6 H RBC 4.08 L Hgb 11.0 L Hct 36.0 L MCV 88.2 MCH 27.0 MCHC 30.6 L RDW Std Deviation 47.1 H RDW Coeff of Jaciel 14.6 Plt Count 366 MPV 9.2 Immature Gran % (Auto) 0.300 Neut % (Auto) 73.8 H Lymph % (Auto) 13.9 L Mellette % (Auto) 10.0 Eos % (Auto) 1.6 Baso % (Auto) 0.4 Absolute Neuts (auto) 9.3 H Absolute Lymphs (auto) 1.76 Nucleated RBC % 0 Sodium 139 Potassium 3.8 Chloride 104 Carbon Dioxide 29.0 Anion Gap 6 BUN 10 Creatinine 0.74 Estim Creat Clear Calc 68.00 Est GFR (MDRD) Af Amer 96 Est GFR (MDRD) Non-Af 80 BUN/Creatinine Ratio 13.4 Glucose 110 H Calcium 9.1 Total Bilirubin 0.60 AST 16 ALT 18 Alkaline Phosphatase 55 Total Protein 7.2 Albumin 3.4 Globulin 3.8 Albumin/Globulin Ratio 0.9 Lipase 33 Radiography Diagnostic Testing: Clinical Impression(s) from Imaging Studies Chest CTA 09/27/23 15:00 IMPRESSION: No demonstrated pulmonary embolism or arterial dissection. Bilateral pulmonary nodules. Fleischner Society Guidelines (MacMahon, et al. Radiology 2017; 284(1):228-43) suggest that no follow-up is necessary for patients with a low or high risk of malignancy. Electronically Signed: Ruddy Palma MD at 15:52 EST , Abdomen/Pelvis CT 09/27/23 15:01 IMPRESSION: (NOT LISTED IN ORDER OF SIGNIFICANCE) Diffuse omental metastatic disease. Large midline ventral hernia containing nonobstructed small bowel. Hysterectomy changes. Other findings as above. Electronically Signed: Ruddy Palma MD at 16:00 EST , Discharge Plan Triage Chief Complaint: Abd Pain ED Midlevel Provider: Christian Batres ED Provider: See Levin Dx/Rx/DC Orders Clinical Impression: Chest wall muscle strain, Abdominal pain Instructions: ED Chest Wall Strain Prescriptions: No Action rosuvastatin [Crestor] 5 mg tablet 5 mg PO QODAY calcium carbonate [Tums] 200 mg calcium (500 mg) tablet,chewable 200 mg PO DAILY cholecalciferol (vitamin D3) 50 mcg (2,000 unit) capsule 7,000 unit PO DAILY coenzyme Q10 100 mg capsule 100 mg PO DAILY zoledronic acid 4 mg recon soln 4 mg IV .ONCE Rx Instructions: injection every 6 months metoprolol tartrate 50 mg tablet 50 mg PO BID Qty: 180 3RF amiodarone 200 mg tablet 200 mg PO QHS diltiazem HCl [Cardizem CD] 120 mg capsule,extended release 24hr 120 mg PO BID zinc 50 mg capsule 50 mg PO DAILY ascorbic acid (vitamin C) [C-1000] 1,000 mg tablet 2 g PO DAILY potassium chloride 20 mEq tablet extended release 20 meq PO DAILY Eliquis 5 mg tablet 5 mg PO BID Qty: 180 4RF Patient Comments: To restart Oct 01, s/p colonoscopy furosemide [Lasix] 40 mg tablet 40 mg PO BID Qty: 60 3RF Primary Care Provider: Gini Ojeda Referrals: Gini Ojeda DO [Primary Care Provider] - Activity Restrictions/Additional Instructions: Please follow-up outpatient. Disposition Disposition: Home, Self Care
[2023-09-27 16:26] VITALS: BP 125/70; PULSE 102; RESP 16; O2SAT 98
== END 2023-09-27 16:31 | disposition home or self-care (01) ==
PROVIDERS: Nurse Practitioner; Emergency Provider Emergency Medicine; PCP Internal Medicine; Visit Provider Emergency Medicine
DX: S29.011A Strain of muscle and tendon of front wall of thorax, initial encounter (principal); J44.9 Chronic obstructive pulmonary disease, unspecified; I48.91 Unspecified atrial fibrillation; R10.9 Unspecified abdominal pain; E78.5 Hyperlipidemia, unspecified; I10 Essential (primary) hypertension; E55.9 Vitamin D deficiency, unspecified; Z79.01 Long term (current) use of anticoagulants; Z79.899 Other long term (current) drug therapy; X58.XXXA Exposure to other specified factors, initial encounter
CPT/HCPCS: 71275; 74177; 80053; 83690; 85025; 99283; J7030; Q9967; A4216

== ENCOUNTER 2023-10-25 13:02 | Observation (INO) | payer MEDICARE, SELFPAY ==
[2023-10-25 13:03] VITALS: BP 122/68; PULSE 63; RESP 14; TEMP 36.1; O2SAT 100; BMI 33.5
--- NOTE | 2023-10-25 13:21 | EX.ED.DYSGE1 ---
HPI History of Present Illness Chief Complaint: GI Bleed Informant: patient Onset/Context/Timing Onset: Yesterday Narrative Narrative: Patient presents secondary to GI bleed. She states yesterday she had bloody and black bowel movements approximately 15 or 30 minutes after she would eat throughout the day. She had a colonoscopy performed [address] Iyer. At that time she was found to have anal fissure, ulcers in the rectum, diverticulosis, and congested mucosa of the colon. Patient is currently on Eliquis for history of paroxysmal A-fib. She also started a new oral chemotherapy medication this past week for ovarian cancer. [facility] Medical History (Updated 10/25/23 @ 14:[address] Rajani Menendez MD) Anemia Asthma Atrial fibrillation with rapid ventricular response (10/12/20) Bilateral carotid artery stenosis Bladder prolapse Calculus of gallbladder with chronic cholecystitis without obstruction Cardiology follow-up encounter Carpal tunnel syndrome, bilateral Cellulitis Cholelithiasis Chronic anticoagulation Chronic cholecystitis COPD (chronic obstructive pulmonary disease) Diarrhea Essential (primary) hypertension Fatty liver History of cardioversion Hyperlipemia Multiple thyroid nodules Non-smoker Nonrheumatic mitral valve stenosis with insufficiency Osteopenia Ovarian cancer Paresthesia Peritoneal carcinomatosis Right lower lobe pulmonary nodule Sciatica Shortness of breath on exertion Thyroid nodule Vitamin D deficiency Home Medications calcium carbonate 200 mg calcium (500 mg) chewable tablet (Tums) 200 mg PO DAILY supplement 10/09/17 [History Last Taken Unknown] rosuvastatin 5 mg tablet (Crestor) 5 mg PO QODAY CHOLESTEROL 10/09/17 [History Last Taken Unknown] coenzyme Q10 100 mg capsule 100 mg PO DAILY 10/23/20 [History Last Taken Unknown] zoledronic acid 4 mg intravenous solution 4 mg IV .ONCE 07/02/21 [History Last Taken Unknown] cholecalciferol (vitamin D3) 50 mcg (2,000 unit) capsule 7,000 unit PO DAILY supplement 03/16/23 [History Last Taken Unknown] apixaban 5 mg tablet (Eliquis) 5 mg PO BID #180 tabs 06/01/23 [Rx Last Taken 08/24/23] furosemide 40 mg tablet (Lasix) 40 mg PO BID #60 tabs 07/20/23 [Rx Last Taken Unknown] amiodarone 200 mg tablet 200 mg PO QHS 08/25/23 [History Last Taken Unknown] diltiazem HCl 120 mg capsule,extended release 24 hr (Cardizem CD) 120 mg PO BID 08/25/23 [History Last Taken 08/27/23] metoprolol tartrate 50 mg tablet 50 mg PO BID #180 tabs 09/02/23 [Rx Last Taken Unknown] ascorbic acid (vitamin C) 1,000 mg tablet (C-1000) 2 g PO DAILY 09/23/23 [History Last Taken Unknown] potassium chloride 20 mEq tablet,extended release 20 meq PO DAILY 09/23/23 [History Last Taken Unknown] zinc 50 mg capsule 50 mg PO DAILY 09/23/23 [History Last Taken Unknown] bupropion HCl 150 mg 24 hr tablet, extended release 150 mg PO DAILY 10/25/23 [History Last Taken Unknown] ferrous sulfate 325 mg (65 mg iron) tablet (FeroSul) 325 mg PO DAILY 10/25/23 [History Last Taken Unknown] trametinib PO DAILY 10/25/23 [History Last Taken Unknown] Allergy/AdvReac Type Severity Reaction Status Date / Time morphine AdvReac Severe Nausea/Vom/ Verified 10/25/23 13:05 Diarrhea penicillin G AdvReac Unknown Unknown Verified 10/25/23 13:05 Family History Father CAD (coronary artery disease) Diabetes Mother Lymphoma Sister Colon cancer Brother Colon cancer Surgical History H/O nasal polypectomy History of cholecystectomy (10/23/17) History of colonoscopy History of exploratory laparotomy (10/2020) History of hernia repair (10/2020) History of hysterectomy with unilateral oophorectomy (1983) History of rectal polypectomy History of shoulder replacement (2019) Status post laser ablation of incompetent vein Social History household members: spouse Smoking Status: Never smoker second hand exposure: No alcohol intake: never details: rare substance use type: does not use caffeine: No what type of physical activity do you participate in: walking frequency: 3-4 times per week duration: < 15 minutes/day patricia/zoroastrianism: Zoroastrian seatbelt use: always do you feel safe at home: Yes ROS ROS ED Constitutional Constitutional ED: Denies chills or fever(s) Eyes Eyes: Denies discharge from eye(s) ENT ENT ED: Denies discharge from eye(s), rhinorrhea or sore throat Cardiovascular Cardiovascular: Denies chest pain or palpitations Respiratory/Chest Respiratory/Chest: Denies cough or dyspnea Gastrointestinal Gastrointestinal: Reports abdominal pain, diarrhea, melena and other Details: Patient with both bright red blood as well as black tarry stool per rectum. She reports some mild epigastric pain. ; Denies nausea or vomiting Genitourinary Genitourinary ED: Denies dysuria Musculoskeletal Musculoskeletal: Denies back pain or extremity pain Integumentary Denies Abrasions or rash Neurologic Neurologic: Denies headache(s) or weakness Psychiatric Psychiatric: Denies anxiety or depression Allergic/Immunologic Allergic/Immunologic ED: Denies lip swelling or urticaria EXAM Physical Exam Const Vital Signs: 10/25/23 13:03 Temperature 97.0 F L Temperature Source Temporal Pulse Rate 63 Respiratory Rate 14 Blood Pressure 122/68 H Blood Pressure Mean 86 Pulse Ox 100 Oxygen Delivery Method Room Air Positive well nourished and well developed General Appearance ED: well developed HEENT Reports moist mucous membranes Eyes EOMs intact bilaterally Chest Wall inspection of chest normal and palpation of chest normal Resp normal respiratory effort and clear to auscultation bilaterally Cardio regular rate and regular rhythm GI GI Narrative: Abdomen soft with no focal tenderness. Hypoactive bowel sounds. Extremity normal to inspection Neuro oriented x3 and no sensory deficits noted Motor Exam: strength 5/5 throughout Psych mental status grossly normal Skin no rashes or lesions noted MDM MDM MDM Narrative Medical decision making narrative: IV line established. Patient placed on cafeteria monitor. Labwork obtained to evaluate for leukocytosis, anemia, and electrolyte derangement. Patient given a dose of IV Protonix. History & Record Review Discussion w/independent historian: Patient Lab Data Attestation: I reviewed the patient's lab results. Labs: Laboratory Results - last 24 hr 10/25/23 10/25/23 13:30 13:32 WBC 7.6 RBC 4.56 Hgb 12.0 Hct 38.9 MCV 85.3 MCH 26.3 L MCHC 30.8 L RDW Std Deviation 52.3 H RDW Coeff of Jaciel 17.0 H Plt Count 318 MPV 8.8 Immature Gran % (Auto) 0.300 Neut % (Auto) 57.3 Lymph % (Auto) 28.4 [place] % (Auto) 12.0 H Eos % (Auto) 1.6 Baso % (Auto) 0.4 Absolute Neuts (auto) 4.4 Absolute Lymphs (auto) 2.16 Nucleated RBC % 0 PT 17.0 H INR 1.4 APTT 30.8 Sodium 137 Potassium 3.7 Chloride 103 Carbon Dioxide 28.0 Anion Gap 6 BUN 21 H Creatinine 0.92 Estim Creat Clear Calc 58.39 Est GFR (MDRD) Af Amer 75 Est GFR (MDRD) Non-Af 62 BUN/Creatinine Ratio 22.7 H Glucose 104 Calcium 9.2 Total Bilirubin 0.40 Direct Bilirubin 0.16 AST 29 ALT 27 Alkaline Phosphatase 63 Total Protein 7.0 Albumin 3.6 Globulin 3.4 Blood Type A POSITIVE Antibody Screen NEGATIVE EKG Initial EKG: Attestation: I personally reviewed and interpreted this EKG as follows: Interpretation: Sinus Bradycardia (Sinus bradycardia 57 bpm with no acute ischemia.) Treatment and Re-Evaluation :: CBC was a white count of 7.6 and hemoglobin of 12.0. This is actually improved when compared to her labs from a month ago. Coags were remarkable for an INR of 1.4. Chemistry studies reveal a BUN of 21 and a creatinine 0.92. LFTs are unremarkable. I spoke with the patient's heme-onc physician at [facility], Dr. Julián Kenyon. Patient was just started on Mekinst 6 days ago. He states this may cause some diarrhea, but it is felt that she may have ulcerative colitis and this may be the cause of her diarrhea as well. He recommended holding her Eliquis if possible and observing her overnight for cycling of her hemoglobins. She may require repeat scope. He would like a call or message tomorrow with an update on how she is doing. His office number is [phone]. I also spoke with Dr. Iyer, who knows the patient well. He agrees that patient can be admitted to observation status for cycling of her blood counts. He is also in agreement with holding her Eliquis at this time if possible. I will speak with hospitalist regarding admission. Discharge Plan Triage Chief Complaint: GI Bleed ED Provider: Rajani Menendez Dx/Rx/DC Orders Clinical Impression: GI bleed, Ovarian cancer, Chronic anticoagulation Prescriptions: No Action rosuvastatin [Crestor] 5 mg tablet 5 mg PO QODAY calcium carbonate [Tums] 200 mg calcium (500 mg) tablet,chewable 200 mg PO DAILY cholecalciferol (vitamin D3) 50 mcg (2,000 unit) capsule 7,000 unit PO DAILY coenzyme Q10 100 mg capsule 100 mg PO DAILY zoledronic acid 4 mg recon soln 4 mg IV .ONCE Rx Instructions: injection every 6 months metoprolol tartrate 50 mg tablet 50 mg PO BID Qty: 180 3RF amiodarone 200 mg tablet 200 mg PO QHS diltiazem HCl [Cardizem CD] 120 mg capsule,extended release 24hr 120 mg PO BID zinc 50 mg capsule 50 mg PO DAILY ascorbic acid (vitamin C) [C-1000] 1,000 mg tablet 2 g PO DAILY potassium chloride 20 mEq tablet extended release 20 meq PO DAILY bupropion HCl 150 mg tablet extended release 24 hr 150 mg PO DAILY ferrous sulfate [FeroSul] 325 mg (65 mg iron) tablet 325 mg PO DAILY trametinib [Mekinist] PO DAILY Eliquis 5 mg tablet 5 mg PO BID Qty: 180 4RF Patient Comments: To restart Oct 01, s/p colonoscopy furosemide [Lasix] 40 mg tablet 40 mg PO BID Qty: 60 3RF Primary Care Provider: Gini Ojeda Referrals: Gini Ojeda DO [Primary Care Provider] - Disposition Disposition: Acute Care Hospital [facility]
[2023-10-25 13:35] LABS: Absolute Lymphocyte Count 2.16 X10^3/uL (0.83-4.51); Absolute Neutrophil Count 4.4 X10^3/uL (2.0-7.7); Basophil# 0.03 X10^3/uL; Basophil% 0.4 % (0-1); Eosinophil# 0.12 X10^3/uL; Eosinophils% 1.6 % (0-5); Hematocrit 38.9 % (37-47); Lymphocyte # 2.16 X10^3/ul (0.83-4.51); Lymphocyte % 28.4 % (19-41); Mean Corp Hgb Conc 30.8 g/dL (32-36); Mean Corpuscular Hgb 26.3 pg (27.0-32.0); Mean Corpuscular Volume 85.3 fL (81-99); Mean Platelet Vol. 8.8 fl (6.2-12.0); Monocyte# 0.91 X10^3/uL; NRBC Flagged by Analyzer 0 % (0-5); Neutrophil # 4.37 X10^3/uL (2.7-7.7); Neutrophil % 57.3 % (47-70); Platelet Count 318 K/mm3 (150-450); RBC Distribution Width SD 52.3 fl (35.1-43.9); Red Blood Count 4.56 M/mm3 (4.2-5.4); White Blood Count 7.6 K/mm3 (4.4-11.0)
[2023-10-25 13:44] LABS: Partial Thromboplast Time 30.8 Seconds (24.1-36.2)
[2023-10-25 13:48] LABS: International Normalized Ratio 1.4
[2023-10-25 13:55] LABS: AST(SGOT) 29 U/L (15-37); Alanine Aminotransfer ALT/SGPT 27 U/L (13-56); Albumin, Serum 3.6 g/dL (3.2-5.0); Alkaline Phosphatase 63 U/L (45-117); Anion Gap 6 (5-15); BUN 21 mg/dL (7-18); BUN/Creat Ratio 22.7 RATIO (10-20); Bilirubin, Direct 0.16 mg/dL (0.00-0.30); Calcium,Total 9.2 mg/dL (8.5-10.1); Chloride 103 mmol/L (98-107); Creatinine, Serum 0.92 mg/dL (0.55-1.02); EST Glomerular Filtration Rate 62 mL/min (>60); Est Glom Filt Rate - Afr Amer 75 mL/min (>60); Estimated Creatinine Clearance 58.39 ml/min; Globulin 3.4 g/dL (2.2-4.2); Glucose 104 mg/dL (74-106); Potassium 3.7 mmol/L (3.5-5.1); Sodium Level 137 mmol/L (136-145)
[2023-10-25] MEDS: 0.9% Normal Saline (1000mL) 1,000 ML 150 ML IV (14:02)
[2023-10-25] MEDS: Pantoprazole Sodium 80 MG in 0.9% Normal Saline (50mL Bag) 15 ML 420 MG IV BOLUS (14:02)
--- NOTE | 2023-10-25 14:08 | EKG12_ITS ---
Test Reason : GI BLEED Blood Pressure : / mmHG Vent. Rate : 057 BPM Atrial Rate : 057 BPM P-R Int : 186 ms QRS Dur : 084 ms QT Int : 468 ms P-R-T Axes : 080 -48 011 degrees QTc Int : 455 ms Sinus bradycardia with sinus arrhythmia Left axis deviation Pulmonary disease pattern Septal infarct (cited on or before 13-OCT-2020) Abnormal ECG Confirmed by ANGIE HADLEY, ELAINA ([id number]), photography editor MINE DE LOS SANTOS ([id number]) on 11/02/2023 9:41:59 AM Referred By: KAMI Confirmed By:FILOMENA ADAMS MD
[2023-10-25 15:26] VITALS: BP 121/61; PULSE 57; RESP 18; TEMP 36.6; O2SAT 96
--- NOTE | 2023-10-25 15:27 | HP.PCM.HOS_ITS ---
[facility] - General General Date of Admission: 10/25/23 Date of Service: 10/25/23 Chief Complaint: Abd cramping and blood in stool HPI Narrative FAVIO HE, is a 78-year-old female history of hypertension, A-fib, ovarian cancer, depression, asthma presented to [facility] ED 10/25/2023 secondary to bloody and black bowel movements yesterday. Approximately 15 to 30 minutes after she would eat throughout the day she would have the bloody bowel movements. Had colonoscopy [address] Iyer and was found to have anal fissure, ulcers in rectum, diverticulosis and congested mucosa of the colon. Currently on Eliquis for paroxysmal A-fib and started on new oral chemotherapy medication this past week for her ovarian cancer. In the ED hemoglobin of 12 which is actually improved from previous. ED physician spoke with patient's heme-onc doctor at [facility], Dr. Julián Kenyon, who said her Mekinst may cause diarrhea but there is also concern that she may have ulcerative colitis. He recommended holding Eliquis and observing her overnight and cycling hemoglobins and requested to call or message tomorrow with an update on how she is doing, office number is [phone]. ED physician also spoke with Dr. Iyer who is familiar with the patient and agreed it is reasonable to admit to observation status to cycle blood counts and hold her Eliquis. Hospitalist contacted for admission, patient evaluated at bedside. She reports for the past 3 days she has had some cough and yesterday had a little bit of yellow phlegm but no fevers chills, sick contacts, shortness of breath, otherwise was in her usual health until yesterday when she began having abdominal cramping with black and red bloody stools roughly 15 minutes after eating that started yesterday and have been present today as well. Denies any nausea or vomiting. Is feeling slightly better right now in the ED than she did earlier from an abdominal cramping standpoint. [facility] Medical History (Updated 10/25/23 @ 14:[address] Rajani Menendez MD) Anemia Asthma Atrial fibrillation with rapid ventricular response (10/12/20) Bilateral carotid artery stenosis Bladder prolapse Calculus of gallbladder with chronic cholecystitis without obstruction Cardiology follow-up encounter Carpal tunnel syndrome, bilateral Cellulitis Cholelithiasis Chronic anticoagulation Chronic cholecystitis COPD (chronic obstructive pulmonary disease) Diarrhea Essential (primary) hypertension Fatty liver History of cardioversion Hyperlipemia Multiple thyroid nodules Non-smoker Nonrheumatic mitral valve stenosis with insufficiency Osteopenia Ovarian cancer Paresthesia Peritoneal carcinomatosis Right lower lobe pulmonary nodule Sciatica Shortness of breath on exertion Thyroid nodule Vitamin D deficiency Home Medications calcium carbonate 200 mg calcium (500 mg) chewable tablet (Tums) 200 mg PO DAILY supplement 10/09/17 [History Last Taken Unknown] rosuvastatin 5 mg tablet (Crestor) 5 mg PO QODAY CHOLESTEROL 10/09/17 [History Last Taken Unknown] coenzyme Q10 100 mg capsule 100 mg PO DAILY 10/23/20 [History Last Taken Unknown] zoledronic acid 4 mg intravenous solution 4 mg IV .ONCE 07/02/21 [History Last Taken Unknown] cholecalciferol (vitamin D3) 50 mcg (2,000 unit) capsule 7,000 unit PO DAILY supplement 03/16/23 [History Last Taken Unknown] apixaban 5 mg tablet (Eliquis) 5 mg PO BID #180 tabs 06/01/23 [Rx Last Taken 08/24/23] furosemide 40 mg tablet (Lasix) 40 mg PO BID #60 tabs 07/20/23 [Rx Last Taken Unknown] amiodarone 200 mg tablet 200 mg PO QHS 08/25/23 [History Last Taken Unknown] diltiazem HCl 120 mg capsule,extended release 24 hr (Cardizem CD) 120 mg PO BID 08/25/23 [History Last Taken 08/27/23] metoprolol tartrate 50 mg tablet 50 mg PO BID #180 tabs 09/02/23 [Rx Last Taken Unknown] ascorbic acid (vitamin C) 1,000 mg tablet (C-1000) 2 g PO DAILY 09/23/23 [History Last Taken Unknown] potassium chloride 20 mEq tablet,extended release 20 meq PO DAILY 09/23/23 [History Last Taken Unknown] zinc 50 mg capsule 50 mg PO DAILY 09/23/23 [History Last Taken Unknown] bupropion HCl 150 mg 24 hr tablet, extended release 150 mg PO DAILY 10/25/23 [History Last Taken Unknown] ferrous sulfate 325 mg (65 mg iron) tablet (FeroSul) 325 mg PO DAILY 10/25/23 [History Last Taken Unknown] trametinib PO DAILY 10/25/23 [History Last Taken Unknown] Allergy/AdvReac Type Severity Reaction Status Date / Time morphine AdvReac Severe Nausea/Vom/ Verified 10/25/23 13:05 Diarrhea penicillin G AdvReac Unknown Unknown Verified 10/25/23 13:05 Family History Father CAD (coronary artery disease) Diabetes Mother Lymphoma Sister Colon cancer Brother Colon cancer Surgical History H/O nasal polypectomy History of cholecystectomy (10/23/17) History of colonoscopy History of exploratory laparotomy (10/2020) History of hernia repair (10/2020) History of hysterectomy with unilateral oophorectomy (1983) History of rectal polypectomy History of shoulder replacement (2019) Status post laser ablation of incompetent vein Social History household members: spouse Smoking Status: Never smoker second hand exposure: No alcohol intake: never details: rare substance use type: does not use caffeine: No what type of physical activity do you participate in: walking frequency: 3-4 times per week duration: < 15 minutes/day patricia/evangelical: Zoroastrian seatbelt use: always do you feel safe at home: Yes ROS ROS Narrative General: Denies fever/chills HENT: Denies headache, denies stuffy nose, denies sore throat EYES: Denies changes in vision Resp: Slight cough and some phlegm with yellow sputum x 1 yesterday, denies shortness of breath Cardiac: Denies chest pain GI: Abdominal cramping with black and bloody bowel movements 15 minutes after eating since yesterday, denies nausea/vomiting : Denies changes in urination Extremity: Denies swelling MSK: Denies weakness Neuro: Denies any numbness/tingling Heme: Denies any bleeding or bruising Skin: Denies rashes Psychiatric: No complaints voiced Vital Signs Vital Signs Vital Signs: 10/25/23 13:03 10/25/23 15:26 Temperature 97.0 F L 97.8 F Temperature Source Temporal Pulse Rate 63 57 L Respiratory Rate 14 18 Blood Pressure 122/68 H 121/61 H Blood Pressure Mean 86 81 Pulse Ox 100 96 Oxygen Delivery Method Room Air Weight Weight: 97.182 kg Body Mass Index (BMI) 33.5 Physical Exam Narrative General: Alert, oriented, no apparent distress HEENT: Atraumatic, normocephalic Eyes: Anicteric, normal conjunctiva, extraocular movements grossly intact Neck: Supple Respiratory: Clear to auscultation bilaterally, normal respiratory effort Cardiovascular: Regular rate and rhythm GI: Soft, nontender, nondistended Extremities: No edema Musculoskeletal: Moving all extremities Neuro: No overt focal neurological deficits Skin: No rashes appreciated Psych: Cooperative Results Lab / Micro Data 10/25/23 13:30 10/25/23 13:30 Labs: Laboratory Results - last 24 hr 10/25/23 13:30: WBC 7.6, RBC 4.56, Hgb 12.0, Hct 38.9, MCV 85.3, MCH 26.3 L, MCHC 30.8 L, RDW Std Deviation 52.3 H, RDW Coeff of Jaciel 17.0 H, Plt Count 318, MPV 8.8, Immature Gran % (Auto) 0.300, Neut % (Auto) 57.3, Lymph % (Auto) 28.4, [place] % (Auto) 12.0 H, Eos % (Auto) 1.6, Baso % (Auto) 0.4, Absolute Neuts (auto) 4.4, Absolute Lymphs (auto) 2.16, Nucleated RBC % 0, PT 17.0 H, INR 1.4, APTT 30.8, Sodium 137, Potassium 3.7, Chloride 103, Carbon Dioxide 28.0, Anion Gap 6, BUN 21 H, Creatinine 0.92, Estim Creat Clear Calc 58.39, Est GFR (MDRD) Af Amer 75, Est GFR (MDRD) Non-Af 62, BUN/Creatinine Ratio 22.7 H, Glucose 104, Calcium 9.2, Total Bilirubin 0.40, Direct Bilirubin 0.16, AST 29, ALT 27, Alkaline Phosphatase 63, Total Protein 7.0, Albumin 3.6, Globulin 3.4 10/25/23 13:32: Blood Type A POSITIVE, Antibody Screen NEGATIVE Assessment & Plan Assessment/Plan (1) GI bleed: (2) Ovarian cancer: QUALIFIERS: Laterality: unspecified laterality Qualified Code(s): C56.9 - Malignant neoplasm of unspecified ovary (3) Paroxysmal atrial fibrillation: PLAN: Plan #GIB, suspect lower -Colonoscopy [address] Iyer and was found to have anal fissure, ulcers in rectum, diverticulosis and congested mucosa of the colon -There was concern pt may have UC -Type and crossed in ED -Trend H&H -Hold Eliquis -Consult GI -Cont iron supplementation # A-fib -In NSR and usually is per report -Continue amiodarone and diltiazem as well as metoprolol but hold Eliquis given bleeding #Hypertension -Vitally stable, will continue her home medications at this time and monitor closely -Pt on lasix BID at home, started on fluids in ED, will give small amount of hydration and hold lasix for now -Daily weights, I's and O's #Ovarian cancer -Started on new oral chemotherapy medication this past week, Mekinst, once dose confirmed can continue as nonformulary medication if pt can bring this in -Follows w/ Dr. Julián Kenyon w/ [facility] and he requested to call or message tomorrow with an update on how she is doing, office number is [phone] # Depression -Continue Wellbutrin #DVT ppx: SCDs Wendy Rucker MD Time spent in the patient's overall evaluation,decision-making process, review of diagnostic data, adjustment of management, discussion with other providers, nursing nursing and ancillary staff involved in patient's care documentation, 56 minutes Charges/Coding Visit Charges Inpatient E&M: 03984 Init Hosp L2
--- NOTE | 2023-10-25 16:15 | EX.PCM.CON.G ---
HPI Consult Data Date of Consult: 10/25/23 HPI Narrative Reason for Consultation: GI bleed HPI Narrative: FAVIO HE, is a78 yo woman with PMH: PAF, Chronic anemia, Asthma/COPD, HTN, HLD, Ovarian CA s/p KOLBY w/ unilateral oopherectomy, NAFLD, Chronic diarrhea who. She presented to the [facility] ED on 09/23/23 with history of recent colonoscopy with polypectomy and biopsies with no acute events. Since however she had recently eaten out at a local restaurant and started to feel ill with onset the following day with explosive diarrhea, with onset then BRB with no large clots with no lightheadedness or dizziness but ongoing prompted ED evaluation. She notes she had been recently weaken off budesonside loperamide and her diarrhea had resolved until this occurrence but she felt it was food related. She notes her diarrhea has now resolved but she is still have the BRBPR. In the ED she had no clots or BRB noted. She has external hemorrhoids that are unremarkable appearing. On 08/27/2023 colonoscopy with hemorrhoids on perianal exam, nonbleeding thrombosed prolapsed external and internal hemorrhoids which were banded, diverticulosis in the rectosigmoid colon region as well as in the sigmoid region and in the descending colon, 5 mm polyp in the sigmoid colon removed with cold snare, localized moderate inflammation found in the sigmoid colon secondary to colitis which was biopsied, 3 bleeding colonic angiodysplastic lesions treated with heater probe, one 10 mm polyp in the transverse colon removed with hot snare, resected. She was recently started on Keytruda about a week ago. She took her last dose today. There was come concerned about immunotherapy induced diarrhea so she was told to come to the ED for evaluation. Workup in the ED included T98.5, heart rate 65, BP 129/66, respiratory rate 19, 98% on room air, CBC with WBC 12.3, hemoglobin, MCV 86.9, platelet 372 with left shift, BMP with potassium 3.1, glucose 113 otherwise unremarkable, type and screen initiated per ED physician. From review of previous records most recent hemoglobin prior to this 08/19/23 Hgb 9.7. [facility] Medical History (Updated 10/25/23 @ 14:[address] Rajani Menendez MD) Anemia Asthma Atrial fibrillation with rapid ventricular response (10/12/20) Bilateral carotid artery stenosis Bladder prolapse Calculus of gallbladder with chronic cholecystitis without obstruction Cardiology follow-up encounter Carpal tunnel syndrome, bilateral Cellulitis Cholelithiasis Chronic anticoagulation Chronic cholecystitis COPD (chronic obstructive pulmonary disease) Diarrhea Essential (primary) hypertension Fatty liver History of cardioversion Hyperlipemia Multiple thyroid nodules Non-smoker Nonrheumatic mitral valve stenosis with insufficiency Osteopenia Ovarian cancer Paresthesia Peritoneal carcinomatosis Right lower lobe pulmonary nodule Sciatica Shortness of breath on exertion Thyroid nodule Vitamin D deficiency Home Medications calcium carbonate 200 mg calcium (500 mg) chewable tablet (Tums) 200 mg PO DAILY supplement 10/09/17 [History Last Taken Unknown] rosuvastatin 5 mg tablet (Crestor) 5 mg PO QODAY CHOLESTEROL 10/09/17 [History Last Taken Unknown] coenzyme Q10 100 mg capsule 100 mg PO DAILY 10/23/20 [History Last Taken Unknown] zoledronic acid 4 mg intravenous solution 4 mg IV .ONCE 07/02/21 [History Last Taken Unknown] cholecalciferol (vitamin D3) 50 mcg (2,000 unit) capsule 7,000 unit PO DAILY supplement 03/16/23 [History Last Taken Unknown] apixaban 5 mg tablet (Eliquis) 5 mg PO BID #180 tabs 06/01/23 [Rx Last Taken 08/24/23] furosemide 40 mg tablet (Lasix) 40 mg PO BID #60 tabs 07/20/23 [Rx Last Taken Unknown] amiodarone 200 mg tablet 200 mg PO QHS 08/25/23 [History Last Taken Unknown] diltiazem HCl 120 mg capsule,extended release 24 hr (Cardizem CD) 120 mg PO BID 08/25/23 [History Last Taken 08/27/23] metoprolol tartrate 50 mg tablet 50 mg PO BID #180 tabs 09/02/23 [Rx Last Taken Unknown] ascorbic acid (vitamin C) 1,000 mg tablet (C-1000) 2 g PO DAILY 09/23/23 [History Last Taken Unknown] potassium chloride 20 mEq tablet,extended release 20 meq PO DAILY 09/23/23 [History Last Taken Unknown] zinc 50 mg capsule 50 mg PO DAILY 09/23/23 [History Last Taken Unknown] bupropion HCl 150 mg 24 hr tablet, extended release 150 mg PO DAILY 10/25/23 [History Last Taken Unknown] ferrous sulfate 325 mg (65 mg iron) tablet (FeroSul) 325 mg PO DAILY 10/25/23 [History Last Taken Unknown] trametinib PO DAILY 10/25/23 [History Last Taken Unknown] Allergy/AdvReac Type Severity Reaction Status Date / Time morphine AdvReac Severe Nausea/Vom/ Verified 10/25/23 13:05 Diarrhea penicillin G AdvReac Unknown Unknown Verified 10/25/23 13:05 Family History Father CAD (coronary artery disease) Diabetes Mother Lymphoma Sister Colon cancer Brother Colon cancer Surgical History H/O nasal polypectomy History of cholecystectomy (10/23/17) History of colonoscopy History of exploratory laparotomy (10/2020) History of hernia repair (10/2020) History of hysterectomy with unilateral oophorectomy (1983) History of rectal polypectomy History of shoulder replacement (2019) Status post laser ablation of incompetent vein Social History household members: spouse Smoking Status: Never smoker second hand exposure: No alcohol intake: never details: rare substance use type: does not use caffeine: No what type of physical activity do you participate in: walking frequency: 3-4 times per week duration: < 15 minutes/day patricia/zoroastrianism: Temple seatbelt use: always do you feel safe at home: Yes ROS ROS Narrative General: Denies fever/chills HENT: Denies headache, denies stuffy nose, denies sore throat EYES: Denies changes in vision Resp: Slight cough and some phlegm with yellow sputum x 1 yesterday, denies shortness of breath Cardiac: Denies chest pain GI: Abdominal cramping with black and bloody bowel movements 15 minutes after eating since yesterday, denies nausea/vomiting : Denies changes in urination Extremity: Denies swelling MSK: Denies weakness Neuro: Denies any numbness/tingling Heme: Denies any bleeding or bruising Skin: Denies rashes Psychiatric: No complaints voiced Physical Exam Narrative General: Alert, oriented, no apparent distress HEENT: Atraumatic, normocephalic Eyes: Anicteric, normal conjunctiva, extraocular movements grossly intact Neck: Supple Respiratory: Clear to auscultation bilaterally, normal respiratory effort Cardiovascular: Regular rate and rhythm GI: Soft, nontender, nondistended Extremities: No edema Musculoskeletal: Moving all extremities Neuro: No overt focal neurological deficits Skin: No rashes appreciated Psych: Cooperative Lab / Micro Data 10/25/23 13:30 10/25/23 13:30 Labs: Laboratory Results - last 24 hr 10/25/23 13:30: WBC 7.6, RBC 4.56, Hgb 12.0, Hct 38.9, MCV 85.3, MCH 26.3 L, MCHC 30.8 L, RDW Std Deviation 52.3 H, RDW Coeff of Jaciel 17.0 H, Plt Count 318, MPV 8.8, Immature Gran % (Auto) 0.300, Neut % (Auto) 57.3, Lymph % (Auto) 28.4, [place] % (Auto) 12.0 H, Eos % (Auto) 1.6, Baso % (Auto) 0.4, Absolute Neuts (auto) 4.4, Absolute Lymphs (auto) 2.16, Nucleated RBC % 0, PT 17.0 H, INR 1.4, APTT 30.8, Sodium 137, Potassium 3.7, Chloride 103, Carbon Dioxide 28.0, Anion Gap 6, BUN 21 H, Creatinine 0.92, Estim Creat Clear Calc 58.39, Est GFR (MDRD) Af Amer 75, Est GFR (MDRD) Non-Af 62, BUN/Creatinine Ratio 22.7 H, Glucose 104, Calcium 9.2, Total Bilirubin 0.40, Direct Bilirubin 0.16, AST 29, ALT 27, Alkaline Phosphatase 63, Total Protein 7.0, Albumin 3.6, Globulin 3.4 10/25/23 13:32: Blood Type A POSITIVE, Antibody Screen NEGATIVE Assessment & Plan Assessment/Plan (1) GI bleed: (2) Ovarian cancer: QUALIFIERS: Laterality: unspecified laterality Qualified Code(s): C56.9 - Malignant neoplasm of unspecified ovary (3) Paroxysmal atrial fibrillation: PLAN: Plan Suspect lower GI bleed -Colonoscopy [address] Iyer and was found to have anal fissure, ulcers in rectum, diverticulosis and congested mucosa of the colon -There was concern pt may have UC. Therefore we requested she be started on sulfasalazine plus folic acid as budesonide was too expensive. She has not started this medicine yet -Type and crossed in ED -Trend H&H -Hold Eliquis -CT scan abdomen pelvis along with ESR and CRP to see if there is any signs of ischemic colitis or colitis secondary to immunotherapy. A-fib -In NSR and usually is per report -Continue amiodarone and diltiazem as well as metoprolol but hold Eliquis given bleeding Ovarian cancer -Started on new oral chemotherapy medication this past week, Mekinst, once dose confirmed can continue as nonformulary medication if pt can bring this in -Follows w/ Dr. Julián Kenyon w/ [facility] and he requested to call or message tomorrow with an update on how she is doing, office number is [phone] Depression -Continue Wellbutrin Charges/Coding Visit Charges Inpatient E&M: 48281 Init Hosp L3
[2023-10-25 16:56] LABS: Absolute Lymphocyte Count 2.62 X10^3/uL (0.83-4.51); Absolute Neutrophil Count 4.6 X10^3/uL (2.0-7.7); Basophil# 0.04 X10^3/uL; Basophil% 0.5 % (0-1); Eosinophil# 0.12 X10^3/uL; Eosinophils% 1.4 % (0-5); Hematocrit 36.5 % (37-47); Hemoglobin 11.2 g/dL (12.0-15.0); Lymphocyte # 2.62 X10^3/ul (0.83-4.51); Lymphocyte % 31.1 % (19-41); Mean Corp Hgb Conc 30.7 g/dL (32-36); Mean Corpuscular Hgb 26.3 pg (27.0-32.0); Mean Corpuscular Volume 85.7 fL (81-99); Mean Platelet Vol. 9.1 fl (6.2-12.0); Monocyte# 1.06 X10^3/uL; Monocyte% 12.6 % (0-10); NRBC Flagged by Analyzer 0 % (0-5); Neutrophil # 4.55 X10^3/uL (2.7-7.7); Platelet Count 318 K/mm3 (150-450); RBC Distribution Width SD 52.2 fl (35.1-43.9); Red Blood Count 4.26 M/mm3 (4.2-5.4); White Blood Count 8.4 K/mm3 (4.4-11.0)
[2023-10-25 17:08] VITALS: BMI 33.5
[2023-10-25] MEDS: 0.9% Normal Saline (1000mL) 1,000 ML 50 ML IV (17:42)
[2023-10-25 19:12] VITALS: PULSE 65; RESP 16
[2023-10-25] MEDS: Albuterol 2.5 MG/3 ML VIAL.NEB. INHALATION (19:12)
[2023-10-25 19:33] LABS: Absolute Lymphocyte Count 2.41 X10^3/uL (0.83-4.51); Absolute Neutrophil Count 4.2 X10^3/uL (2.0-7.7); Basophil# 0.03 X10^3/uL; Basophil% 0.4 % (0-1); Eosinophil# 0.08 X10^3/uL; Eosinophils% 1.1 % (0-5); Hematocrit 36.1 % (37-47); Hemoglobin 11.2 g/dL (12.0-15.0); Lymphocyte # 2.41 X10^3/ul (0.83-4.51); Mean Corpuscular Hgb 26.5 pg (27.0-32.0); Mean Corpuscular Volume 85.3 fL (81-99); Mean Platelet Vol. 8.7 fl (6.2-12.0); Monocyte# 0.77 X10^3/uL; Monocyte% 10.2 % (0-10); NRBC Flagged by Analyzer 0 % (0-5); Neutrophil # 4.22 X10^3/uL (2.7-7.7); Platelet Count 303 K/mm3 (150-450); RBC Distribution Width SD 52.5 fl (35.1-43.9); Red Blood Count 4.23 M/mm3 (4.2-5.4); White Blood Count 7.5 K/mm3 (4.4-11.0)
[2023-10-25 22:42] VITALS: BP 124/48; PULSE 56; RESP 18; TEMP 36.7; O2SAT 94
[2023-10-25] MEDS: Atorvastatin Calcium 10 MG Tablet PO (22:51)
[2023-10-25] MEDS: Amiodarone 200 MG Tablet PO (22:51)
[2023-10-25 22:52] VITALS: BP 124/48; PULSE 56
[2023-10-26 00:21] LABS: Absolute Lymphocyte Count 2.38 X10^3/uL (0.83-4.51); Absolute Neutrophil Count 4.1 X10^3/uL (2.0-7.7); Basophil# 0.03 X10^3/uL; Basophil% 0.4 % (0-1); Eosinophil# 0.09 X10^3/uL; Eosinophils% 1.2 % (0-5); Hematocrit 33.2 % (37-47); Hemoglobin 10.2 g/dL (12.0-15.0); Lymphocyte # 2.38 X10^3/ul (0.83-4.51); Lymphocyte % 32.5 % (19-41); Mean Corp Hgb Conc 30.7 g/dL (32-36); Mean Corpuscular Volume 84.5 fL (81-99); Mean Platelet Vol. 8.9 fl (6.2-12.0); Monocyte# 0.73 X10^3/uL; NRBC Flagged by Analyzer 0 % (0-5); Neutrophil # 4.07 X10^3/uL (2.7-7.7); Neutrophil % 55.6 % (47-70); Platelet Count 291 K/mm3 (150-450); RBC Distribution Width CV 16.9 % (11.6-14.6); RBC Distribution Width SD 51.8 fl (35.1-43.9); Red Blood Count 3.93 M/mm3 (4.2-5.4); White Blood Count 7.3 K/mm3 (4.4-11.0)
[2023-10-26 02:51] VITALS: BP 138/52; PULSE 63; RESP 18; TEMP 37; O2SAT 95
[2023-10-26 04:19] LABS: Absolute Lymphocyte Count 2.49 X10^3/uL (0.83-4.51); Absolute Neutrophil Count 4.3 X10^3/uL (2.0-7.7); Basophil# 0.03 X10^3/uL; Basophil% 0.4 % (0-1); Eosinophil# 0.12 X10^3/uL; Eosinophils% 1.6 % (0-5); Hemoglobin 10.1 g/dL (12.0-15.0); Lymphocyte # 2.49 X10^3/ul (0.83-4.51); Lymphocyte % 32.3 % (19-41); Mean Corp Hgb Conc 30.6 g/dL (32-36); Mean Corpuscular Volume 85.1 fL (81-99); Monocyte# 0.77 X10^3/uL; NRBC Flagged by Analyzer 0 % (0-5); Neutrophil # 4.29 X10^3/uL (2.7-7.7); Neutrophil % 55.4 % (47-70); Platelet Count 290 K/mm3 (150-450); RBC Distribution Width SD 52.3 fl (35.1-43.9); Red Blood Count 3.88 M/mm3 (4.2-5.4); White Blood Count 7.7 K/mm3 (4.4-11.0)
[2023-10-26 05:09] LABS: Anion Gap 5 (5-15); BUN 16 mg/dL (7-18); BUN/Creat Ratio 27.6 RATIO (10-20); Calcium,Total 8.2 mg/dL (8.5-10.1); Chloride 107 mmol/L (98-107); Creatinine, Serum 0.58 mg/dL (0.55-1.02); EST Glomerular Filtration Rate 106 mL/min (>60); Est Glom Filt Rate - Afr Amer 129 mL/min (>60); Estimated Creatinine Clearance 67.14 ml/min; Glucose 93 mg/dL (74-106); Potassium 3.2 mmol/L (3.5-5.1); Sodium Level 139 mmol/L (136-145); Thyroid Stim Hormone (TSH) 2.43 uIU/mL (0.358-3.74)
[2023-10-26 05:32] VITALS: BMI 33.6
--- NOTE | 2023-10-26 08:09 | PCM.PN.HOSP ---
Reason for Visit Reason for Visit: Diagnoses Malignant neoplasm of unspecified ovary (10/25/23) Paroxysmal atrial fibrillation (10/25/23) Gastrointestinal hemorrhage, unspecified (10/25/23) Subjective Subjective No further bleeding today. Objective Data Objective Data Vital Signs: Vital Signs Temp Pulse Resp BP Pulse Ox O2 Del Method 37.0 C 63 18 138/52 H 95 Room Air 10/26/23 02:51 10/26/23 02:51 10/26/23 02:51 10/26/23 02:51 10/26/23 02:51 10/26/23 02:53 Oxygen Delivery Method Room Air Weight: 97.205 kg Body Mass Index (BMI) 33.6 Intake & Output: Intake and Output for Last 24 Hours 10/24/23 10/25/23 10/26/23 23:59 23:59 23:59 Intake Total 555 / 555 Balance 555 / 555 Lab / Micro Data 10/26/23 03:45 10/26/23 03:45 Labs: Laboratory Results - last 24 hr 10/25/23 13:30: WBC 7.6, RBC 4.56, Hgb 12.0, Hct 38.9, MCV 85.3, MCH 26.3 L, MCHC 30.8 L, RDW Std Deviation 52.3 H, RDW Coeff of Jaciel 17.0 H, Plt Count 318, MPV 8.8, Immature Gran % (Auto) 0.300, Neut % (Auto) 57.3, Lymph % (Auto) 28.4, [place] % (Auto) 12.0 H, Eos % (Auto) 1.6, Baso % (Auto) 0.4, Absolute Neuts (auto) 4.4, Absolute Lymphs (auto) 2.16, Nucleated RBC % 0, PT 17.0 H, INR 1.4, APTT 30.8, Sodium 137, Potassium 3.7, Chloride 103, Carbon Dioxide 28.0, Anion Gap 6, BUN 21 H, Creatinine 0.92, Estim Creat Clear Calc 58.39, Est GFR (MDRD) Af Amer 75, Est GFR (MDRD) Non-Af 62, BUN/Creatinine Ratio 22.7 H, Glucose 104, Calcium 9.2, Total Bilirubin 0.40, Direct Bilirubin 0.16, AST 29, ALT 27, Alkaline Phosphatase 63, Total Protein 7.0, Albumin 3.6, Globulin 3.4 10/25/23 13:32: Blood Type A POSITIVE, Antibody Screen NEGATIVE 10/25/23 16:31: WBC 8.4, RBC 4.26, Hgb 11.2 L, Hct 36.5 L, MCV 85.7, MCH 26.3 L, MCHC 30.7 L, RDW Std Deviation 52.2 H, RDW Coeff of Jaciel 17.0 H, Plt Count 318, MPV 9.1, Immature Gran % (Auto) 0.400, Neut % (Auto) 54.0, Lymph % (Auto) 31.1, [place] % (Auto) 12.6 H, Eos % (Auto) 1.4, Baso % (Auto) 0.5, Absolute Neuts (auto) 4.6, Absolute Lymphs (auto) 2.62, Nucleated RBC % 0 10/25/23 19:26: WBC 7.5, RBC 4.23, Hgb 11.2 L, Hct 36.1 L, MCV 85.3, MCH 26.5 L, MCHC 31.0 L, RDW Std Deviation 52.5 H, RDW Coeff of Jaciel 17.0 H, Plt Count 303, MPV 8.7, Immature Gran % (Auto) 0.300, Neut % (Auto) 56.0, Lymph % (Auto) 32.0, [place] % (Auto) 10.2 H, Eos % (Auto) 1.1, Baso % (Auto) 0.4, Absolute Neuts (auto) 4.2, Absolute Lymphs (auto) 2.41, Nucleated RBC % 0 10/25/23 23:32: WBC 7.3, RBC 3.93 L, Hgb 10.2 L, Hct 33.2 L, MCV 84.5, MCH 26.0 L, MCHC 30.7 L, RDW Std Deviation 51.8 H, RDW Coeff of Jaciel 16.9 H, Plt Count 291, MPV 8.9, Immature Gran % (Auto) 0.300, Neut % (Auto) 55.6, Lymph % (Auto) 32.5, [place] % (Auto) 10.0, Eos % (Auto) 1.2, Baso % (Auto) 0.4, Absolute Neuts (auto) 4.1, Absolute Lymphs (auto) 2.38, Nucleated RBC % 0 10/26/23 03:45: WBC 7.7, RBC 3.88 L, Hgb 10.1 L, Hct 33.0 L, MCV 85.1, MCH 26.0 L, MCHC 30.6 L, RDW Std Deviation 52.3 H, RDW Coeff of Jaciel 17.0 H, Plt Count 290, MPV 9.0, Immature Gran % (Auto) 0.300, Neut % (Auto) 55.4, Lymph % (Auto) 32.3, [place] % (Auto) 10.0, Eos % (Auto) 1.6, Baso % (Auto) 0.4, Absolute Neuts (auto) 4.3, Absolute Lymphs (auto) 2.49, Nucleated RBC % 0, Sodium 139, Potassium 3.2 L, Chloride 107, Carbon Dioxide 27.0, Anion Gap 5, BUN 16, Creatinine 0.58, Estim Creat Clear Calc 67.14, Est GFR (MDRD) Af Amer 129, Est GFR (MDRD) Non-Af 106, BUN/Creatinine Ratio 27.6 H, Glucose 93, Calcium 8.2 L, TSH 2.43 Physical Exam Const alert HEENT head/scalp atraumatic and moist oral mucous membranes Resp normal respiratory effort, no retractions, no use of accessory muscles and clear to auscultation bilaterally Cardio regular rate, regular rhythm, S1 normal heart sound and S2 normal heart sound GI normal to inspection, nondistended, normoactive bowel sounds, soft to palpation, non-tender and non-distended Extremity normal to inspection Neuro Sensorium / Orientation: awake Assessment & Plan Assessment/Plan (1) GI bleed: (2) Ovarian cancer: QUALIFIERS: Laterality: unspecified laterality Qualified Code(s): C56.9 - Malignant neoplasm of unspecified ovary (3) Paroxysmal atrial fibrillation: PLAN: Plan GIB, suspect lower Colonoscopy [address] Iyer and was found to have anal fissure, ulcers in rectum, diverticulosis and congested mucosa of the colon Pathology 08/27/23 has shown colitis. 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 GI consult H/H stable Check ESR and CRP. A-fib In NSR and usually is per report Continue amiodarone and diltiazem as well as metoprolol apixaban held given GI bleed. Chronic conditions: Hypertension-stable, will continue her home medications at this time and monitor closely. Pt on lasix BID at home, started on fluids in ED, will give small amount of hydration and hold lasix for now Ovarian cancer-Started on new oral chemotherapy medication this past week, Mekinst, once dose confirmed can continue as nonformulary medication if pt can bring this in-Follows w/ Dr. Julián Kenyon w/ [facility] and he requested to call or message tomorrow with an update on how she is doing, office number is [phone] Depression-Continue Wellbutrin DVT ppx: SCDs Charges/Coding Visit Charges Inpatient E&M: 04943 Subs Hosp L2
[2023-10-26 08:21] VITALS: BP 143/63; PULSE 60; RESP 18; TEMP 36.8; O2SAT 94
[2023-10-26] MEDS: Ferrous Sulfate 325 MG Tablet PO (08:32)
[2023-10-26] MEDS: dilTIAZem CD 120 MG Capsule PO ×2 (10:06→21:04)
[2023-10-26 10:07] VITALS: BP 148/65; PULSE 82
[2023-10-26] MEDS: Metoprolol Tartrate 50 MG Tablet PO ×2 (10:07→21:04)
[2023-10-26] MEDS: buPROPion (XL) 150 MG TABLET.XL PO (10:07)
[2023-10-26 13:30] LABS: Erythrocyte Sedimentation Rate 10 mm/hr (0-30)
[2023-10-26] MEDS: 0.9% Saline Lock 10 ML Syringe IV ×2 (13:54→21:03)
[2023-10-26 14:12] VITALS: BP 143/70; PULSE 89; RESP 18; TEMP 36.6; O2SAT 98
[2023-10-26 14:12] LABS: CRP 6.24 mg/L (0.0-3.0)
--- NOTE | 2023-10-26 15:45 | CT_ITS ---
EXAM: CT ABDOMEN AND PELVIS WITH INTRAVENOUS CONTRAST CLINICAL INDICATION: GI bleed TECHNIQUE: Helically acquired images were obtained of the abdomen and pelvis with intravenous contrast. This CT exam was performed using one or more of the following dose reduction techniques: automated exposure control, adjustment of the mA and/or kV according to patient size, and/or use of iterative reconstruction technique. CONTRAST: IV 100mL Isovue-370 COMPARISON: CT Abdomen Pelvis dated 09/27/2023 FINDINGS: LOWER THORAX: Normal. Lung bases are clear. No cardiomegaly. No pericardial effusion. ABDOMEN: LIVER: Normal. Homogeneous. No focal mass. GALLBLADDER AND BILE DUCTS: Cholecystectomy clips are in place. PANCREAS: Normal. No focal cystic or solid mass. SPLEEN: Normal. Normal size without focal cystic or solid mass. ADRENALS: Normal. No nodules. KIDNEYS AND URETERS: Normal. Normal renal size and position. No hydronephrosis. STOMACH AND BOWEL: Small bowel again extends into periumbilical and infraumbilical abdominal wall hernias without obstruction. Diverticulosis of the colon noted without evidence of acute diverticulitis. Localized wall thickening of the descending colon may be related to peristalsis. Focal colitis difficult to exclude. PELVIS: APPENDIX: Appendix is visualized and normal in appearance. BLADDER: Normal. REPRODUCTIVE: Hysterectomy noted. ABDOMEN and PELVIS: INTRAPERITONEAL SPACE: Nodular densities again noted along the greater omentum suggestive of peritoneal carcinomatosis. No ascites or other fluid collection. No free air. BONES/JOINTS: No suspicious lytic or blastic abnormality. SOFT TISSUES: See above. VASCULATURE: Normal. Abdominal aorta is non-dilated. LYMPH NODES: Normal. No enlarged lymph nodes. CT/Abdomen/Pelvis W IV Cont ONLY IMPRESSION: 1. Persistent changes of the peritoneum consistent with carcinomatosis. 2. Diverticulosis coli. 3. Question focal colitis versus peristaltic changes of the descending colon. Electronically Signed: Danial Jimenez MD at 16:56 EST ,
--- NOTE | 2023-10-26 15:51 | PN.GI_ITS ---
Subjective Subjective Patient had a couple more episodes of lower GI bleeding today. The cramping is a lot better today. She remains off Eliquis therapy. Objective Data Objective Data Vital Signs: Vital Signs Temp Pulse Resp BP Pulse Ox O2 Del Method 97.8 F 89 18 143/70 H 98 Room Air 10/26/23 14:12 10/26/23 14:12 10/26/23 14:12 10/26/23 14:12 10/26/23 14:12 10/26/23 14:12 Oxygen Delivery Method Room Air Weight: 214 lb 4.8 oz Body Mass Index (BMI) 33.6 Intake & Output: Intake and Output for Last 24 Hours 10/24/23 10/25/23 10/26/23 23:59 23:59 23:59 Intake Total 555 / 555 1500 / 1500 Balance 555 / 555 1500 / 1500 Lab / Micro Data 10/26/23 03:45 10/26/23 03:45 Labs: Laboratory Results - last 24 hr 10/25/23 16:31: WBC 8.4, RBC 4.26, Hgb 11.2 L, Hct 36.5 L, MCV 85.7, MCH 26.3 L, MCHC 30.7 L, RDW Std Deviation 52.2 H, RDW Coeff of Jaciel 17.0 H, Plt Count 318, MPV 9.1, Immature Gran % (Auto) 0.400, Neut % (Auto) 54.0, Lymph % (Auto) 31.1, [place] % (Auto) 12.6 H, Eos % (Auto) 1.4, Baso % (Auto) 0.5, Absolute Neuts (auto) 4.6, Absolute Lymphs (auto) 2.62, Nucleated RBC % 0 10/25/23 19:26: WBC 7.5, RBC 4.23, Hgb 11.2 L, Hct 36.1 L, MCV 85.3, MCH 26.5 L, MCHC 31.0 L, RDW Std Deviation 52.5 H, RDW Coeff of Jaciel 17.0 H, Plt Count 303, MPV 8.7, Immature Gran % (Auto) 0.300, Neut % (Auto) 56.0, Lymph % (Auto) 32.0, [place] % (Auto) 10.2 H, Eos % (Auto) 1.1, Baso % (Auto) 0.4, Absolute Neuts (auto) 4.2, Absolute Lymphs (auto) 2.41, Nucleated RBC % 0 10/25/23 23:32: WBC 7.3, RBC 3.93 L, Hgb 10.2 L, Hct 33.2 L, MCV 84.5, MCH 26.0 L, MCHC 30.7 L, RDW Std Deviation 51.8 H, RDW Coeff of Jaciel 16.9 H, Plt Count 291, MPV 8.9, Immature Gran % (Auto) 0.300, Neut % (Auto) 55.6, Lymph % (Auto) 32.5, [place] % (Auto) 10.0, Eos % (Auto) 1.2, Baso % (Auto) 0.4, Absolute Neuts (auto) 4.1, Absolute Lymphs (auto) 2.38, Nucleated RBC % 0 10/26/23 03:45: WBC 7.7, RBC 3.88 L, Hgb 10.1 L, Hct 33.0 L, MCV 85.1, MCH 26.0 L, MCHC 30.6 L, RDW Std Deviation 52.3 H, RDW Coeff of Jaciel 17.0 H, Plt Count 290, MPV 9.0, Immature Gran % (Auto) 0.300, Neut % (Auto) 55.4, Lymph % (Auto) 32.3, [place] % (Auto) 10.0, Eos % (Auto) 1.6, Baso % (Auto) 0.4, Absolute Neuts (auto) 4.3, Absolute Lymphs (auto) 2.49, Nucleated RBC % 0, ESR 10, Sodium 139, Potassium 3.2 L, Chloride 107, Carbon Dioxide 27.0, Anion Gap 5, BUN 16, Creatinine 0.58, Estim Creat Clear Calc 67.14, Est GFR (MDRD) Af Amer 129, Est GFR (MDRD) Non-Af 106, BUN/Creatinine Ratio 27.6 H, Glucose 93, Calcium 8.2 L, C-React Prot Ext Range 6.24 H, TSH 2.43 Physical Exam Const alert HEENT head/scalp atraumatic and moist oral mucous membranes Resp normal respiratory effort, no retractions, no use of accessory muscles and clear to auscultation bilaterally Cardio regular rate, regular rhythm, S1 normal heart sound and S2 normal heart sound GI normal to inspection, nondistended, normoactive bowel sounds, soft to palpation, non-tender and non-distended Extremity normal to inspection Neuro Sensorium / Orientation: awake Assessment & Plan Assessment/Plan (1) GI bleed: (2) Ovarian cancer: QUALIFIERS: Laterality: unspecified laterality Qualified Code(s): C56.9 - Malignant neoplasm of unspecified ovary (3) Paroxysmal atrial fibrillation: PLAN: Plan Suspect lower GI bleed -Colonoscopy [address] Iyer and was found to have anal fissure, ulcers in rectum, diverticulosis and congested mucosa of the colon -There was concern pt may have UC. Therefore we requested she be started on sulfasalazine plus folic acid as budesonide was too expensive. She has not started this medicine yet -Type and crossed in ED -Trend H&H -Hold Eliquis -CT scan abdomen pelvis along with ESR and CRP to see if there is any signs of ischemic colitis or colitis secondary to immunotherapy. A-fib -In NSR and usually is per report -Continue amiodarone and diltiazem as well as metoprolol but hold Eliquis given bleeding Ovarian cancer -Started on new oral chemotherapy medication this past week, Mekinst, once dose confirmed can continue as nonformulary medication if pt can bring this in -Follows w/ Dr. Julián Kenyon w/ [facility] and he requested to call or message tomorrow with an update on how she is doing, office number is [phone] Depression -Continue Wellbutrin 10/26/2023-her inflammatory markers in particular ESR and CRP are mildly elevated. She is only mildly tender at this time. She has been afebrile. Hemoglobin has trended down from 13-10.1. Is been stable at 10.1. I will get a CT scan abdomen pelvis. We will also check her stools for fecal calprotectin, stool lactoferrin, enteric pathogens and C. difficile. Working differential diagnosis at this time is immunotherapy induced colitis, indeterminate colitis or ischemic colitis in the setting of anticoagulation. Charges/Coding Visit Charges Inpatient E&M: 74635 Subs Hosp L3
--- NOTE | 2023-10-26 16:01 | CASEMGMT ---
Met with patient to complete RENTERIA form. RENTERIA form explained to patient who voiced understanding and signed form. Original form placed in pt?s chart and copy provided to?patient. Iva Vera, Discharge Planning Asst
[2023-10-26 20:54] VITALS: BP 123/61; PULSE 64; RESP 18; TEMP 36.9; O2SAT 94
[2023-10-26] MEDS: Atorvastatin Calcium 10 MG Tablet PO (21:03)
[2023-10-26 21:04] VITALS: BP 123/61; PULSE 64
[2023-10-26] MEDS: Amiodarone 200 MG Tablet PO (21:04)
[2023-10-27] VITALS (7 sets, daily range): BP systolic 118–133; BP diastolic 45–83; PULSE 58–88; RESP 16–18; TEMP 36.7–37.2; O2SAT 94–96; BMI 33.6
[2023-10-27] MEDS: Albuterol 2.5 MG/3 ML VIAL.NEB. INHALATION (03:52)
--- NOTE | 2023-10-27 07:21 | PN.HOSP_ITS ---
Reason for Visit Reason for Visit: Diagnoses Malignant neoplasm of unspecified ovary (10/25/23) Paroxysmal atrial fibrillation (10/25/23) Gastrointestinal hemorrhage, unspecified (10/25/23) Subjective Subjective Complains of upper respiratory symptoms with congestion, cough, productive of yellow phlegm. Objective Data Objective Data Vital Signs: Vital Signs Temp Pulse Resp BP Pulse Ox O2 Del Method 36.7 C 87 16 133/83 H 95 Room Air 10/27/23 03:35 10/27/23 03:52 10/27/23 03:52 10/27/23 03:35 10/27/23 03:35 10/27/23 03:38 Oxygen Delivery Method Room Air Weight: 97.3 kg Body Mass Index (BMI) 33.6 Intake & Output: Intake and Output for Last 24 Hours 10/25/23 10/26/23 10/27/23 23:59 23:59 23:59 Intake Total 555 / 555 1500 / 1500 Balance 555 / 555 1500 / 1500 Lab / Micro Data 10/27/23 07:22 10/27/23 07:22 Labs: Laboratory Results - last 24 hr 10/26/23 03:45: ESR 10, C-React Prot Ext Range 6.24 H Radiography Diagnostic Testing: Radiology Impression Abdomen/Pelvis CT 10/26/23 15:45 IMPRESSION: 1. Persistent changes of the peritoneum consistent with carcinomatosis. 2. Diverticulosis coli. 3. Question focal colitis versus peristaltic changes of the descending colon. Electronically Signed: Danial Jimenez MD at 16:56 EST Reading Location ID and State: [address] [place] [address] Tel , Service support , Physical Exam Const alert and no apparent distress HEENT head/scalp atraumatic and moist oral mucous membranes Resp normal respiratory effort and no retractions Auscultation: wheezes Cardio regular rate, regular rhythm, S1 normal heart sound and S2 normal heart sound GI normal to inspection, nondistended, normoactive bowel sounds, soft to palpation, non-tender and non-distended Assessment & Plan Assessment/Plan (1) GI bleed: (2) Ovarian cancer: QUALIFIERS: Laterality: unspecified laterality Qualified Code(s): C56.9 - Malignant neoplasm of unspecified ovary (3) Paroxysmal atrial fibrillation: PLAN: Plan GIB, suspect lower * Colonoscopy [address] Iyer and was found to have anal fissure, ulcers in rectum, diverticulosis and congested mucosa of the colon * Pathology 08/27/23 has shown colitis. 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 * GI consult * H/H stable * Repeat CT showed persistent changes of the peritoneum cw carcinomatosis, diverticulosis coli, question focal colitis. * Discussed with Dr. Iyer. No additional workup at this time. A-fib * In NSR and usually is per report * Continue amiodarone and diltiazem as well as metoprolol * apixaban held given GI bleed. Discussed with Dr. Iyer, recommend holding for 7 days. RSV-associated bronchitis. * On prednisone 40 mg for 5 days. Chronic conditions: * Hypertension-stable, will continue her home medications at this time and monitor closely. Pt on lasix BID at home, started on fluids in ED, will give small amount of hydration and hold lasix for now * Ovarian cancer-Started on new oral chemotherapy medication this past week, Mekinst, once dose confirmed can continue as nonformulary medication if pt can bring this in-Follows w/ Dr. Julián Kenyon w/ [facility] and he requested to call or message tomorrow with an update on how she is doing, office number is [phone]. I called the office on 10/27, no answer. * Depression-Continue Wellbutrin DVT ppx: SCDs
[2023-10-27 07:53] LABS: Absolute Lymphocyte Count 2.07 X10^3/uL (0.83-4.51); Basophil# 0.03 X10^3/uL; Basophil% 0.4 % (0-1); Eosinophil# 0.21 X10^3/uL; Eosinophils% 2.6 % (0-5); Hematocrit 35.3 % (37-47); Lymphocyte # 2.07 X10^3/ul (0.83-4.51); Lymphocyte % 25.9 % (19-41); Mean Corp Hgb Conc 31.2 g/dL (32-36); Mean Corpuscular Hgb 26.5 pg (27.0-32.0); Mean Corpuscular Volume 85.1 fL (81-99); Mean Platelet Vol. 8.9 fl (6.2-12.0); Monocyte% 8.8 % (0-10); NRBC Flagged by Analyzer 0 % (0-5); Neutrophil # 4.97 X10^3/uL (2.7-7.7); Platelet Count 266 K/mm3 (150-450); RBC Distribution Width CV 17.2 % (11.6-14.6); RBC Distribution Width SD 52.2 fl (35.1-43.9); Red Blood Count 4.15 M/mm3 (4.2-5.4)
[2023-10-27 08:08] LABS: Anion Gap 4 (5-15); BUN 10 mg/dL (7-18); BUN/Creat Ratio 19.1 RATIO (10-20); Calcium,Total 8.1 mg/dL (8.5-10.1); Chloride 108 mmol/L (98-107); Creatinine, Serum 0.52 mg/dL (0.55-1.02); EST Glomerular Filtration Rate 120 mL/min (>60); Est Glom Filt Rate - Afr Amer 145 mL/min (>60); Estimated Creatinine Clearance 67.19 ml/min; Glucose 102 mg/dL (74-106); Potassium 3.3 mmol/L (3.5-5.1); Sodium Level 138 mmol/L (136-145)
[2023-10-27] MEDS: Ferrous Sulfate 325 MG Tablet PO (08:40)
[2023-10-27] MEDS: predniSONE 20 MG Tablet 40 MG PO (09:59)
[2023-10-27] MEDS: buPROPion (XL) 150 MG TABLET.XL PO (10:00)
[2023-10-27] MEDS: Metoprolol Tartrate 50 MG Tablet PO (11:41)
--- NOTE | 2023-10-27 12:31 | DS.PCM_ITS ---
Providers Date of Admission: 10/25/23 Primary Care Physician: Dr. Gini Ojeda DO Consultations 10/25/23 15:44 Consult: Gastroenterology Routine Consulting Provider: [facility] Reason for Consult: GIB EMERGENT Consult: No MD Notified: Yes Date Notified: 10/25/23 Time Notified: 15:32 Method of Notification: ED Physician Initiated Reason For Visit: BRBPR Diagnosis Discharge Diagnosis (1) GI bleed: Status: Acute Code(s): K92.2 - Gastrointestinal hemorrhage, unspecified (2) Ovarian cancer: Status: Chronic Code(s): C56.9 - Malignant neoplasm of unspecified ovary Qualifiers: Laterality: unspecified laterality Qualified Code(s): C56.9 - Malignant neoplasm of unspecified ovary (3) Paroxysmal atrial fibrillation: Status: Acute Code(s): I48.0 - Paroxysmal atrial fibrillation Plan GIB, suspect lower * Colonoscopy [address] Iyer and was found to have anal fissure, u lcers in rectum, diverticulosis and congested mucosa of the colon * Pathology 08/27/23 has shown colitis. 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 * GI consult * H/H stable * Repeat CT showed persistent changes of the peritoneum cw carcinomatosis, diverticulosis coli, question focal colitis. * Discussed with Dr. Iyer. No additional workup at this time. A-fib * In NSR and usually is per report * Continue amiodarone and diltiazem as well as metoprolol * apixaban held given GI bleed. Discussed with Dr. Iyer, recommend holding for 7 days. RSV-associated bronchitis. * On prednisone 40 mg for 5 days. Chronic conditions: * Hypertension-stable, will continue her home medications at this time and monitor closely. Pt on lasix BID at home, started on fluids in ED, will give small amount of hydration and hold lasix for now * Ovarian cancer-Started on new oral chemotherapy medication this past week, Mekinst, once dose confirmed can continue as nonformulary medication if pt can bring this in-Follows w/ Dr. Julián Kenyon w/ [facility] and he requested to call or message tomorrow with an update on how she is doing, office number is [phone]. I called the office on 10/27, no answer. * Depression-Continue Wellbutrin DVT ppx: SCDs Medications at Discharge Home Medications calcium carbonate 200 mg calcium (500 mg) chewable tablet (Tums) 200 mg PO DAILY supplement 10/09/17 rosuvastatin 5 mg tablet (Crestor) 5 mg PO SUMOWEFR CHOLESTEROL 10/09/17 coenzyme Q10 100 mg capsule 100 mg PO DAILY 10/23/20 zoledronic acid 4 mg intravenous solution 4 mg IV .ONCE 07/02/21 cholecalciferol (vitamin D3) 50 mcg (2,000 unit) capsule 7,000 unit PO DAILY supplement 03/16/23 apixaban 5 mg tablet (Eliquis) 5 mg PO BID #180 tabs 06/01/23 furosemide 40 mg tablet (Lasix) 40 mg PO BID #60 tabs 07/20/23 amiodarone 200 mg tablet 200 mg PO QHS 08/25/23 diltiazem HCl 120 mg capsule,extended release 24 hr (Cardizem CD) 120 mg PO BID 08/25/23 metoprolol tartrate 50 mg tablet 50 mg PO BID #180 tabs 09/02/23 ascorbic acid (vitamin C) 1,000 mg tablet (C-1000) 2 g PO DAILY 09/23/23 potassium chloride 20 mEq tablet,extended release 20 meq PO DAILY 09/23/23 zinc 50 mg capsule 50 mg PO DAILY 09/23/23 bupropion HCl 150 mg 24 hr tablet, extended release 150 mg PO DAILY 10/25/23 ferrous sulfate 325 mg (65 mg iron) tablet (FeroSul) 325 mg PO DAILY 10/25/23 trametinib PO DAILY 10/25/23 prednisone 20 mg tablet 40 mg (2 x 20 mg) PO BREAKFAST #8 tabs 10/27/23 Hospital Course Operations None Procedures None Summary of Care Provided Minutes Spent on Discharge: 32 Hospital Course: Patient presents with recurrent GI bleed. Patient had repeat imaging that showed ongoing colitis. 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 Hemoglobin, however remained stable. The bleeding was also enabled by her being on apixaban which has been held. Patient did have some scant bleeding but as mentioned previously, her hemoglobin remained stable. Discussed with Dr. Iyer, gastroenterology, recommends holding off on the apixaban for 7 days and then to resume that. Patient does follow-up with an oncologist at [facility]. Patient is followed there for ovarian cancer. And CAT scan, once again, showed omental metastasis. I did reach out to try to speak to Dr. Kenyon, her gynecologic oncologist, however the office number, which was correct, no one answered, so was unable to leave message. Patient did complain of some upper respiratory symptoms with congestion, cough. Patient was checked and was positive for RSV. Test for COVID-19 and influenza were negative. Patient will just require supportive management for the RSV until that resolves. Weight / BMI Weight Weight: 97.3 kg Body Mass Index (BMI) 33.6 ABG / Lab / Microbiology Data 10/27/23 07:22 10/27/23 07:22 Laboratory: Laboratory Results - last 24 hr 10/26/23 03:45: ESR 10, C-React Prot Ext Range 6.24 H 10/27/23 07:22: WBC 8.0, RBC 4.15 L, Hgb 11.0 L, Hct 35.3 L, MCV 85.1, MCH 26.5 L, MCHC 31.2 L, RDW Std Deviation 52.2 H, RDW Coeff of Jaciel 17.2 H, Plt Count 266, MPV 8.9, Immature Gran % (Auto) 0.300, Neut % (Auto) 62.0, Lymph % (Auto) 25.9, [place] % (Auto) 8.8, Eos % (Auto) 2.6, Baso % (Auto) 0.4, Absolute Neuts (auto) 5.0, Absolute Lymphs (auto) 2.07, Nucleated RBC % 0, Sodium 138, Potassium 3.3 L, Chloride 108 H, Carbon Dioxide 26.0, Anion Gap 4 L, BUN 10, Creatinine 0.52 L, Estim Creat Clear Calc 67.19, Est GFR (MDRD) Af Amer 145, Est GFR (MDRD) Non-Af 120, BUN/Creatinine Ratio 19.1, Glucose 102, Calcium 8.1 L Microbiology: Microbiology 10/27/23 09:35 Mucosa - Nose SARS-CoV-2, Influenza & RSV (PCR) - Final RSV Radiography Diagnostic Testing: Radiology Impression Abdomen/Pelvis CT 10/26/23 15:45 IMPRESSION: 1. Persistent changes of the peritoneum consistent with carcinomatosis. 2. Diverticulosis coli. 3. Question focal colitis versus peristaltic changes of the descending colon. Electronically Signed: Danial Jimenez MD at 16:56 EST , D/C Instructions Discharge Diet: No restrictions Meaningful Use Info Meaningful Use Diagnoses (Choose all that apply): None applicable Discharge Plan Admission Admit Date/Time: 10/25/23 15:28 Primary Reason for Your Visit: GI bleed Attending Provider: Jose Juan Zhu Primary Care Provider: Gini Ojeda Consulting Providers: Wendy Rucker Instructions Additional Instructions / Restrictions: You had recurrent GI bleeding. This is likely due to the known colitis that you have had before. This colitis seems to be more likely related with your imm unotherapy for your ovarian cancer. Compounded by the fact he also take Eliquis. Will need to hold off on your Eliquis for the next week and then resume that. Additionally, you also have RSV, which is a viral infection. This RSV is likely causing an acute bronchitis which is why have you on prednisone for total 5 days. I would recommend a caution around others with having this virus as it c ould be contagious to them. If you are around others, would recommend wearing a mask until you are feeling better. Follow-up with your oncologist in the next 1 to 2 weeks. Discharge Orders/Prescriptions Prescriptions: New prednisone 20 mg Tablet 40 mg PO BREAKFAST Qty: 8 0RF Continued rosuvastatin [Crestor] 5 mg tablet 5 mg PO SUMOWEFR calcium carbonate [Tums] 200 mg calcium (500 mg) tablet,chewable 200 mg PO DAILY cholecalciferol (vitamin D3) 50 mcg (2,000 unit) capsule 7,000 unit PO DAILY coenzyme Q10 100 mg capsule 100 mg PO DAILY zoledronic acid 4 mg recon soln 4 mg IV .ONCE Rx Instructions: injection every 6 months metoprolol tartrate 50 mg tablet 50 mg PO BID Qty: 180 3RF amiodarone 200 mg tablet 200 mg PO QHS diltiazem HCl [Cardizem CD] 120 mg capsule,extended release 24hr 120 mg PO BID zinc 50 mg capsule 50 mg PO DAILY ascorbic acid (vitamin C) [C-1000] 1,000 mg tablet 2 g PO DAILY potassium chloride 20 mEq tablet extended release 20 meq PO DAILY bupropion HCl 150 mg tablet extended release 24 hr 150 mg PO DAILY ferrous sulfate [FeroSul] 325 mg (65 mg iron) tablet 325 mg PO DAILY furosemide [Lasix] 40 mg tablet 40 mg PO BID Qty: 60 3RF Held trametinib [Mekinist] PO DAILY Hold Instructions: until you follow up with your oncologist. Eliquis 5 mg tablet 5 mg PO BID Qty: 180 4RF Hold Instructions: Resume on 11/03/23. Patient Comments: To restart Oct 01, s/p colonoscopy Referrals / Follow Up: Fast,Gini, DO [Primary Care Provider] - Disposition Disposition (needs filled in before D/C Order can be placed): Home, Self Care Charges/Coding Visit Charges Inpatient E&M: 59443 Disch Hosp >30min
--- NOTE | 2023-10-27 12:54 | CASEMGMT ---
MARISOL CM to pt room at this time. Pt states that she feels safe and comfortable being DC home alone today and denies the need for any additional therapy at this time. Pt states that her friend will be driving her home from the hospital today.
--- NOTE | 2023-10-27 12:57 | PHA.DC_ITS ---
Pharmacy [facility] has performed discharge medication reconciliation and counseling for this patient. The patient's discharge medication list was reviewed for discrepancies and discrepancies were resolved. The patient was counseled on the following discharge medications and changes in medications for homegoing were reviewed. The Reason for Use, instructions for use, and potential side effects were reviewed for all new medications. The patient's questions regarding all of their medications were answered. 1. Prednisone 40 mg PO QD x 4 days The patient was able to verbally demonstrate an understanding of their discharge medications. Medications at Discharge Home Medications calcium carbonate 200 mg calcium (500 mg) chewable tablet (Tums) 200 mg PO DAILY supplement 10/09/17 rosuvastatin 5 mg tablet (Crestor) 5 mg PO SUMOWEFR CHOLESTEROL 10/09/17 coenzyme Q10 100 mg capsule 100 mg PO DAILY 10/23/20 zoledronic acid 4 mg intravenous solution 4 mg IV .ONCE 07/02/21 cholecalciferol (vitamin D3) 50 mcg (2,000 unit) capsule 7,000 unit PO DAILY supplement 03/16/23 apixaban 5 mg tablet (Eliquis) 5 mg PO BID #180 tabs 06/01/23 furosemide 40 mg tablet (Lasix) 40 mg PO BID #60 tabs 07/20/23 amiodarone 200 mg tablet 200 mg PO QHS 08/25/23 diltiazem HCl 120 mg capsule,extended release 24 hr (Cardizem CD) 120 mg PO BID 08/25/23 metoprolol tartrate 50 mg tablet 50 mg PO BID #180 tabs 09/02/23 ascorbic acid (vitamin C) 1,000 mg tablet (C-1000) 2 g PO DAILY 09/23/23 potassium chloride 20 mEq tablet,extended release 20 meq PO DAILY 09/23/23 zinc 50 mg capsule 50 mg PO DAILY 09/23/23 bupropion HCl 150 mg 24 hr tablet, extended release 150 mg PO DAILY 10/25/23 ferrous sulfate 325 mg (65 mg iron) tablet (FeroSul) 325 mg PO DAILY 10/25/23 trametinib PO DAILY 10/25/23 prednisone 20 mg tablet 40 mg (2 x 20 mg) PO BREAKFAST #8 tabs 10/27/23
[2023-10-27] MEDS: Potassium Chloride Oral Tablet 20 MEQ 40 MEQ PO (13:57)
--- NOTE | 2023-10-27 15:24 | EX.PCM.PN.GI ---
Subjective Subjective Patient is doing well except for mild cough. She was identified as having RSV. She has not had any more signs or symptoms of abdominal cramping, diarrhea or lower GI bleeding. Objective Data Objective Data Vital Signs: Vital Signs Temp Pulse Resp BP Pulse Ox O2 Del Method 98.5 F 87 18 118/55 L 95 Room Air 10/27/23 14:45 10/27/23 14:45 10/27/23 14:45 10/27/23 14:45 10/27/23 14:45 10/27/23 14:45 Oxygen Delivery Method Room Air Weight: 214 lb 8.156 oz Body Mass Index (BMI) 33.6 Intake & Output: Intake and Output for Last 24 Hours 10/25/23 10/26/23 10/27/23 23:59 23:59 23:59 Intake Total 555 / 555 1500 / 1500 Balance 555 / 555 1500 / 1500 Lab / Micro Data 10/27/23 07:22 10/27/23 07:22 Labs: Laboratory Results - last 24 hr 10/27/23 07:22: WBC 8.0, RBC 4.15 L, Hgb 11.0 L, Hct 35.3 L, MCV 85.1, MCH 26.5 L, MCHC 31.2 L, RDW Std Deviation 52.2 H, RDW Coeff of Jaciel 17.2 H, Plt Count 266, MPV 8.9, Immature Gran % (Auto) 0.300, Neut % (Auto) 62.0, Lymph % (Auto) 25.9, [place] % (Auto) 8.8, Eos % (Auto) 2.6, Baso % (Auto) 0.4, Absolute Neuts (auto) 5.0, Absolute Lymphs (auto) 2.07, Nucleated RBC % 0, Sodium 138, Potassium 3.3 L, Chloride 108 H, Carbon Dioxide 26.0, Anion Gap 4 L, BUN 10, Creatinine 0.52 L, Estim Creat Clear Calc 67.19, Est GFR (MDRD) Af Amer 145, Est GFR (MDRD) Non-Af 120, BUN/Creatinine Ratio 19.1, Glucose 102, Calcium 8.1 L Micro: Microbiology 10/27/23 09:35 Mucosa - Nose SARS-CoV-2, Influenza & RSV (PCR) - Final RSV Radiography Diagnostic Testing: Radiology Impression Abdomen/Pelvis CT 10/26/23 15:45 IMPRESSION: 1. Persistent changes of the peritoneum consistent with carcinomatosis. 2. Diverticulosis coli. 3. Question focal colitis versus peristaltic changes of the descending colon. Electronically Signed: Danial Jimenez MD at 16:56 EST , Physical Exam Const alert and no apparent distress HEENT head/scalp atraumatic and moist oral mucous membranes Resp normal respiratory effort and no retractions Auscultation: wheezes Cardio regular rate, regular rhythm, S1 normal heart sound and S2 normal heart sound GI normal to inspection, nondistended, normoactive bowel sounds, soft to palpation, non-tender and non-distended Assessment & Plan Assessment/Plan (1) GI bleed: (2) Ovarian cancer: QUALIFIERS: Laterality: unspecified laterality Qualified Code(s): C56.9 - Malignant neoplasm of unspecified ovary (3) Paroxysmal atrial fibrillation: PLAN: Plan Suspect lower GI bleed -Colonoscopy [address] Iyer and was found to have anal fissure, ulcers in rectum, diverticulosis and congested mucosa of the colon -There was concern pt may have UC. Therefore we requested she be started on sulfasalazine plus folic acid as budesonide was too expensive. She has not started this medicine yet -Type and crossed in ED -Trend H&H -Hold Eliquis -CT scan abdomen pelvis along with ESR and CRP to see if there is any signs of ischemic colitis or colitis secondary to immunotherapy. A-fib -In NSR and usually is per report -Continue amiodarone and diltiazem as well as metoprolol but hold Eliquis given bleeding Ovarian cancer -Started on new oral chemotherapy medication this past week, Mekinst, once dose confirmed can continue as nonformulary medication if pt can bring this in -Follows w/ Dr. Julián Kenyon w/ [facility] and he requested to call or message tomorrow with an update on how she is doing, office number is [phone] Depression -Continue Wellbutrin 10/26/2023-her inflammatory markers in particular ESR and CRP are mildly elevated. She is only mildly tender at this time. She has been afebrile. Hemoglobin has trended down from 13-10.1. Is been stable at 10.1. I will get a CT scan abdomen pelvis. We will also check her stools for fecal calprotectin, stool lactoferrin, enteric pathogens and C. difficile. Working differential diagnosis at this time is immunotherapy induced colitis, indeterminate colitis or ischemic colitis in the setting of anticoagulation. 10/27/2023-patient is doing well from a GI standpoint. Her ESR and CRP are improving. She is not tender anymore in the left lower quadrant. Her hemoglobin continues to be stable at 10.1. I do not think she has immunotherapy induced diarrhea as she is better without steroids. I am suspecting that this was ischemic colitis versus indeterminate colitis in the setting of anticoagulation. Recommended continue hold anticoagulation for the next 5 days and restart at that time. Charges/Coding Visit Charges Inpatient E&M: 73143 Subs Hosp L3
== END 2023-10-27 14:42 | disposition home or self-care (01) ==
LOC: ED 14:23 → MS3 15:34
PROVIDERS: Admitting Provider Internal Medicine; Emergency Provider Emergency Medicine; PCP Internal Medicine
DX: K92.2 Gastrointestinal hemorrhage, unspecified (principal); C56.9 Malignant neoplasm of unspecified ovary; J44.9 Chronic obstructive pulmonary disease, unspecified; I48.0 Paroxysmal atrial fibrillation; B97.4 Respiratory syncytial virus as the cause of diseases classified elsewhere; I10 Essential (primary) hypertension; Z79.01 Long term (current) use of anticoagulants; E78.5 Hyperlipidemia, unspecified; Z79.899 Other long term (current) drug therapy; K76.0 Fatty (change of) liver, not elsewhere classified; F32.A Depression, unspecified; J20.5 Acute bronchitis due to respiratory syncytial virus
CPT/HCPCS: 36415; 74177; 80048; 80076; 84443; 85025; 85610; 85652; 85730; 86140; 86850; 86900; 86901; 87631; 93005; 94640; 96361; 96374; 99221; 99285; J7030; Q9967; A4216; G0378; J3490

== ENCOUNTER → 2024-01-01 | Outpatient (CLI) | payer MEDICARE, SELFPAY ==
--- NOTE | 2024-01-01 12:56 | VDLE_ITS ---
Reason For Study: edema RIGHT LEFT GSV is normal. GSV is normal. CFV is compressible, spontaneous, phasic, CFV is compressible, spontaneous, phasic, competent and demonstrates normal competent, and demonstrates normal augmentation. augmentation. FV is compressible, spontaneous, phasic, FV is compressible, spontaneous, phasic, competent and demonstrates normal competent and demonstrates normal augmentation. augmentation. POP V is compressible, spontaneous, phasic, POP V is compressible, spontaneous, phasic, competent and demonstrates normal competent and demonstrates normal augmentation. augmentation. T/P Trunk is compressible. T/P Trunk is compressible. PTV is compressible. PTV is compressible. RT PerV is compressible. LT PerV is compressible. Procedure There is a non vascularized anechoic Exam performed in department. structure noted at the popliteal fossa. This is a venous duplex using B-mode, color flow and spectral Doppler. A preliminary report was called and/or faxed to [facility]. VL/Venous Duplex US - Devin Extrem Interpretation Summary No evidence for acute deep venous thrombosis bilateral lower extremities with p atent and compressible bilateral great saphenous veins. Left popliteal fossa 4.34 x 1.93 cm hypoechoic nonvascular structure. This location would correlate with a Folres's cyst. Clini yuridia correlation would be appropriate. Ordering Physician: Gini Ojeda Referring Physician: Gini Ojeda Performed By: Nan Cheema RVT
== END | disposition home or self-care (01) ==
LOC: CVS 12:48
PROVIDERS: PCP Internal Medicine; Referring Provider Internal Medicine; Visit Provider Internal Medicine
DX: R60.0 Localized edema (principal)
CPT/HCPCS: 93970

== ENCOUNTER → 2024-01-19 | Outpatient (CLI) | payer MEDICARE, SELFPAY ==
--- NOTE | 2024-01-19 13:04 | CDU_ITS ---
Reason For Study: carotid stenosis Rt. Velocities/BP Lt. Velocities/BP Prox CCA 81.5/13.5 cm/sec. Prox CCA 94.9/22.3 cm/sec. Mid CCA 84.4/15.4 cm/sec. Mid CCA 91.6/20.1 cm/sec. Dist CCA 78.7/19.2 cm/sec. Dist CCA 81.7/20.1 cm/sec. Prox ICA 54.1/12.6 cm/sec. Prox ICA 65.2/11.3 cm/sec. Mid ICA 62.6/19.2 cm/sec. Mid ICA 87.2/21.2 cm/sec. Dist ICA 87.2/26.7 cm/sec. Dist ICA 99.2/23.4 cm/sec. Rt. ICA/CCA = 1.0. Lt. ICA/CCA = 1.1. Prox ECA 75.9/9.7 cm/sec. Prox ECA 108.3/11.5 cm/sec. Rt. Vert. 57.5/14.6 cm/sec. Lt. Vert. 71.8/14.6 cm/sec. Right Extracranial There is homogeneous, smooth atherosclerotic plaque noted in the right common carotid artery. There is intimal thickening but no significant atherosclerotic plaque noted in the right internal carotid artery. There is heterogeneous, irregular atherosclerotic plaque noted in the right external carotid artery. Antegrade flow is noted in the right vertebral artery. Left Extracranial There is homogeneous, smooth atherosclerotic plaque noted in the left common carotid artery. There is heterogeneous, irregular atherosclerotic plaque noted in the left internal carotid artery. There is heterogeneous, irregular atherosclerotic plaque noted in the left external carotid artery. Antegrade flow is noted in the left vertebral artery. Procedure Carotid Duplex [id number]. This is a Carotid Duplex examination using B-mode, color flow and specral Doppler. The exam was diagnostic. Exam performed in department. VL/Carotid Duplex Ultrasound Interpretation Summary No significant atherosclerotic plaque or stenosis noted in the right internal c arotid artery. Mild (<50%) stenosis left extracranial internal carotid. Flow within the vertebral a rteries is antegrade bilaterally. Ordering Physician: Gini Ojeda Referring Physician: Gini Ojeda Performed By: Scott Davis RVT
== END | disposition home or self-care (01) ==
LOC: CVS 12:59
PROVIDERS: PCP Internal Medicine; Referring Provider Internal Medicine; Visit Provider Internal Medicine
DX: I65.23 Occlusion and stenosis of bilateral carotid arteries (principal)
CPT/HCPCS: 93880

== ENCOUNTER → 2024-02-08 | Outpatient (CLI) | payer MEDICARE, SELFPAY ==
--- NOTE | 2024-02-08 16:35 | RAD_ITS ---
INDICATION: cough EXAMINATION/TECHNIQUE: X-RAY - XR Chest 2 Views COMPARISON: November 05, 2023. FINDINGS: LINES/DEVICES: Right shoulder arthroplasty partially seen. LUNGS: Lungs symmetrically mildly hyperexpanded. Coarsened interstitium. No consolidation, florid edema or effusion. No pneumothorax. MEDIASTINUM AND CARDIOVASCULAR STRUCTURES: Cardiac silhouette not enlarged. Mild aortic atherosclerosis. BONES AND SOFT TISSUES: Mild to moderate vertebral spondylosis.. RAD/Chest PA and Lateral IMPRESSION: Mild hyperexpansion and interstitial coarsening as can be seen with chronic obstructive pulmonary disease. No radiographic evidence of consolidative pneumonia or florid edema. Electronically Signed: Zurdo Bowles MD at 3:05 EDT ,
== END | disposition home or self-care (01) ==
LOC: MTRAD 16:20
PROVIDERS: PCP Internal Medicine; Referring Provider Internal Medicine; Visit Provider Internal Medicine
DX: R05.9 Cough, unspecified (principal)
CPT/HCPCS: 71046

== ENCOUNTER → 2024-03-01 | Outpatient (CLI) | payer MEDICARE, SELFPAY | END | disposition home or self-care (01) | LOC: PSN 10:33 | PROVIDERS: PCP Internal Medicine; Referring Provider Nurse Practitioner Gerontology; Visit Provider Nurse Practitioner Gerontology | DX: Z79.899 Other long term (current) drug therapy (principal) | CPT/HCPCS: 94060; 94726; 94729 ==

== ENCOUNTER → 2024-05-04 | Outpatient (CLI) | payer MEDICARE, SELFPAY ==
--- NOTE | 2024-05-04 13:10 | US_ITS ---
STUDY: THYROID ULTRASOUND REASON FOR EXAM: Female, 79 years old. yearly f/u on nodules TECHNIQUE: Ultrasound evaluation of the thyroid was performed with real-time and static martini-scale imaging. COMPARISON: 04/08/2023 FINDINGS: RIGHT LOBE: The right lobe of the thyroid gland measures 5.4 x 2.1 x 2.3 cm. There is a homogeneous echotexture. Nodule 1: No change in the 14 x 12 x 12 mm solid hyperechoic wider than tall ill-defined margin nodule with no echogenic foci (TR 3) in the posterior right lobe consistent with an adenoma. LEFT LOBE: The left lobe of the thyroid gland measures 5.4 x 1.9 x 2.7 cm. There is a homogeneous echotexture. Nodule 2: No change in the 14 x 11 x 10 mm solid hypoechoic wider than tall ill-defined margin nodule with macrocalcifications (TR 4) in the superior left lobe and follow-up ultrasound is recommended in one year. Nodule 3: No change in the 8 x 10 x 7 mm solid hypoechoic taller than wide ill-defined margin nodule with peripheral calcifications (TR 5) in the mid left lobe and follow-up ultrasound is recommended in one year. ISTHMUS: The isthmus measures 5 mm thick. . The regional lymph nodes are normal. US/Thyroid IMPRESSION: No change in multinodular thyroid gland and follow-up ultrasound is recommended in one year. Electronically Signed: Gokul Martinez MD at 9:00 EDT ,
== END | disposition home or self-care (01) ==
LOC: US 13:08
PROVIDERS: PCP Internal Medicine; Referring Provider Surgery; Visit Provider Surgery
DX: E04.1 Nontoxic single thyroid nodule (principal)
CPT/HCPCS: 76536

== ENCOUNTER 2024-06-28 11:08 | Emergency (ER) | payer MEDICARE, SELFPAY ==
[2024-06-28 11:09] VITALS: BP 112/60; PULSE 75; RESP 18; TEMP 36; O2SAT 100
[2024-06-28 13:09] VITALS: BP 139/53; PULSE 66; RESP 17
--- NOTE | 2024-06-28 14:00 | EDS_ITS ---
HPI HPI - GI History of Present Illness Chief Complaint: Diarrhea Informant: patient Nausea/Vomiting/Emesis GI Symptom: Positive for Nausea and Vomiting Onset: Today and Yesterday Severity: Mild Diarrhea/Melena/Hematochezia GI Symptom: Positive for Diarrhea; Negative for Melena or Hematochezia Onset: Days Stool Quality: Positive for Watery Severity: Moderate Associated Symptoms Associated Symptoms: Negative for Dysuria, Frequency, Hematuria or Urgency Narrative Narrative: 79-year-old female history of peritoneal cancer on chemotherapy last 2 years she takes pills at home. No effusion. Prior history of GI bleed she is on Eliquis due to her prior history of A-fib. States that she has had diarrhea for a week it has been watery. She took Imodium helped. But she still having diarrhea. Last night and today started having nausea and vomiting. Feeling generally weak. She has had no p.o. intake today. She also developed pustules on her forearms. Denies fever. Denies abdominal pain. Prior similar symptoms: No Recent Illness/Hospitalization: No PFSH PFSH Medical History Paroxysmal atrial fibrillation Chronic anticoagulation Ovarian cancer Chronic anticoagulation Anemia Bladder prolapse History of cardioversion Cardiology follow-up encounter Cellulitis Multiple thyroid nodules Multiple thyroid nodules NAFLD (nonalcoholic fatty liver disease) Diarrhea Steatosis Hepatomegaly Non-smoker Shortness of breath on exertion COPD (chronic obstructive pulmonary disease) Recurrent ventral incisional hernia Thyroid nodule Right lower lobe pulmonary nodule Atrial fibrillation with rapid ventricular response (10/12/20) Nonrheumatic mitral valve stenosis with insufficiency Essential (primary) hypertension Peritoneal carcinomatosis Ovarian cancer Cholelithiasis Chronic cholecystitis Calculus of gallbladder with chronic cholecystitis without obstruction Vitamin D deficiency Hyperlipemia Carpal tunnel syndrome, bilateral Bilateral carotid artery stenosis Asthma Fatty liver Sciatica Osteopenia Paresthesia Home Medications ?Medication ?Instructions ?Recorded ?Last Taken ?Type calcium carbonate (Tums) 200 mg PO DAILY supplement 10/09/17 Unknown History rosuvastatin 5 mg tablet (Crestor) 5 mg PO SUMOWEFR CHOLESTEROL 10/09/17 10/23/23 History coenzyme Q10 100 mg capsule 100 mg PO DAILY 10/23/20 Unknown History cholecalciferol (vitamin D3) 50 7,000 unit PO DAILY supplement 03/16/23 Unknown History mcg (2,000 unit) capsule furosemide 40 mg tablet (Lasix) 40 mg PO BID #60 tabs 07/20/23 Unknown Rx metoprolol tartrate 50 mg tablet 50 mg PO BID #180 tabs 09/02/23 Unknown Rx ascorbic acid (vitamin C) 1,000 mg 2 g PO DAILY 09/23/23 Unknown History tablet (C-1000) potassium chloride 20 mEq 20 meq PO DAILY 09/23/23 Unknown History tablet,extended release zinc 50 mg capsule 50 mg PO DAILY 09/23/23 Unknown History bupropion HCl 150 mg 24 hr tablet, 150 mg PO DAILY 10/25/23 Unknown History extended release ferrous sulfate 325 mg (65 mg 325 mg PO DAILY 10/25/23 Unknown History iron) tablet (FeroSul) trametinib 10 mg PO DAILY 10/25/23 Unknown History folic acid 1 mg tablet 1 mg PO DAILY #90 tabs 10/29/23 Unknown Rx sulfasalazine 500 mg 1 g (2 x 500 mg) PO DAILY #60 tabs 10/29/23 Unknown Rx tablet,delayed release apixaban 5 mg tablet (Eliquis) 5 mg PO BID #180 tabs 02/25/24 Unknown Rx amiodarone 200 mg tablet 200 mg PO QHS #90 tabs 05/13/24 Unknown Rx diltiazem HCl 120 mg 120 mg PO Q12H #180 caps 05/13/24 Unknown Rx capsule,extended release 24 hr acetylcysteine 600 mg capsule mg PO 06/28/24 Unknown History betamethasone, augmented 0.05 % applic topical BID PRN PRN skin 06/28/24 Unknown History topical cream irritation Allergy/AdvReac Type Severity Reaction Status Date / Time morphine AdvReac Severe Nausea/Vom/ Verified 06/28/24 11:09 Diarrhea penicillin G AdvReac Unknown Unknown Verified 06/28/24 11:09 Family History Father CAD (coronary artery disease) Diabetes Mother Lymphoma Sister Colon cancer Brother Colon cancer Surgical History History of rectal polypectomy History of hysterectomy with unilateral oophorectomy (1983) History of cholecystectomy (10/23/17) H/O nasal polypectomy History of colonoscopy History of hernia repair (10/2020) History of shoulder replacement (2019) History of exploratory laparotomy (10/2020) Status post laser ablation of incompetent vein Social History household members: spouse Smoking Status: Never smoker second hand exposure: No alcohol intake: never details: rare substance use type: does not use caffeine: No what type of physical activity do you participate in: walking frequency: 3-4 times per week duration: < 15 minutes/day patricia/congregation: [employer] seatbelt use: always do you feel safe at home: Yes ROS ROS ED ROS Narrative Diarrhea. Nausea and vomiting last night today. Diarrhea for a week. Constitutional Constitutional ED: Denies chills Cardiovascular Cardiovascular: Denies chest pain Respiratory/Chest Respiratory/Chest: Denies cough Gastrointestinal Gastrointestinal: Reports diarrhea, nausea and vomiting; Denies abdominal pain, constipation or melena Genitourinary Genitourinary ED: Denies dysuria or hematuria Musculoskeletal Musculoskeletal: Denies arthralgias or back pain Integumentary Denies abscess or Abrasions Neurologic Neurologic: Denies headache(s) Psychiatric Psychiatric: Denies anxiety or depression Endocrine Endocrinology: Denies polydipsia Hematologic/Lymphatic Hematologic/Lymphatic: Denies easy bleeding Allergic/Immunologic Allergic/Immunologic ED: Denies mouth swelling EXAM Physical Exam Narrative Exam Narrative: 79-year-old female no acute distress. Sitting upright in bed. H EENT exam unremarkable. I do not see any lesions in her nose or mouth. Moist mucous membranes. Neck nontender no lymphadenopathy. Lungs clear to auscultation bilaterally. Heart rate about 70. No murmur. Chest wall and ribs nontender. Abdomen soft nontender. Moving all 4 extremities. Trace bilateral ankle edema. Calves nontender no cords. Upper extremities she has a pustule on each forearm. No cellulitis. No lymphangitic streaking. Neurologically she is awake and alert no focal motor deficits. Back nontender. Const Vital Signs: 06/28/24 11:09 06/28/24 13:09 06/28/24 15:35 Temperature 96.8 F L 97.8 F Temperature Source Temporal Oral Pulse Rate 75 66 78 Respiratory Rate 18 17 16 Blood Pressure 112/60 139/53 H 126/78 H Blood Pressure Mean 77 81 94 Pulse Ox 100 98 Oxygen Delivery Method Room Air Positive well nourished and well developed; Negative for cachectic, contractures or unkempt General Appearance ED: well developed; Negative for unkempt, cachectic, contractures or pallor Nutritional Appearance: Negative for cachectic HEENT Reports moist mucous membranes normocephalic and atraumatic; Negative for trauma or tenderness Eyes PERRL and EOMs intact bilaterally General Eye ED: Negative for pale conjunctiva or scleral icterus Neck no lymphadenopathy, supple and no JVD General: Negative for tenderness Lymph Lymphatic: Negative for other Resp normal respiratory effort and clear to auscultation bilaterally Effort and Inspection: Negative for respiratory distress Auscultation: Negative for rales or rhonchi Cardio regular rate, regular rhythm, S1 normal heart sound, S2 normal heart sound and no murmurs Rate: Negative for bradycardia or tachycardic GI non-tender, non-distended and no masses Inspection: Negative for abdominal distention Palpation: soft; Negative for tender, guarding or rebound tenderness present Back/Spine no CVA tenderness General Back: Negative for CVA tenderness Cervical Spine: Negative for cervical spine tenderness Thoracic Spine / Upper Back: Negative for thoracic spinal tenderness Lumbar Spine / Lower Back: Negative for lumbar spinal tenderness Coccyx: Negative for other Extremity full ROM General Extremety ED: Negative for edema or tenderness General Extremity: Negative for edema Neuro CN's II-XII intact bilaterally and moves all extremities Sensorium / Orientation: oriented to person, oriented to place and oriented to time Motor Exam: strength 5/5 throughout Psych mental status grossly normal and thought process normal Appearance: Negative for unkempt Attitude: No agitated Mood & Affect: Negative for depressed, anxious or tearful Skin no wounds Skin Narrative: Pustules x 1 each on each forearm. General Skin Exam: Negative for jaundice or pallor Lesions: no lesions Rashes: no rashes Trauma: Negative for abrasion Nails: Negative for discolored MDM MDM MDM Narrative Medical decision making narrative: 79-year-old female with peritoneal carcinomatosis on oral chemotherapy at home. Having diarrhea for a week and nausea and vomiting the last 24 hours. She has pustules on her forearms. Otherwise exam is unremarkable. Repeat exam patient doing well at 3:20 PM. She did give us a stool sample which we will send to the lab for C. difficile and stool culture. Patient be turned over to the afternoon physician. Currently unless something drastically changes I think she is okay to be discharged home. Fluids. Imodium. Outpatient follow-up. Patient clinically looks well at 4:04 PM. She will be turned over to the afternoon physician and will check the C. difficile and disposition her to home unless something changes. History & Record Review Discussion w/independent historian: Patient Additional record(s) reviewed:: Prior inpatient record, Prior outpatient record, Prior ED visit and Prior labs Lab Data Attestation: I reviewed the patient's lab results. Lab results narrative: CBC shows white count 14.8. H&H 13 and 41. Platelets 416. Chemistries show potassium 3.4. Gap 9. BUN and creatinine 20 and 0.9. Glucose 108. Liver enzymes normal. Chest x-ray chronic changes. COVID and flu negative. Labs: Laboratory Results - last 24 hr 06/28/24 13:19 WBC 14.8 H RBC 4.19 L Hgb 13.1 Hct 41.5 MCV 99.0 MCH 31.3 MCHC 31.6 L RDW Std Deviation 58.5 H RDW Coeff of Jaciel 15.9 H Plt Count 416 MPV 8.7 Immature Gran % (Auto) 0.400 Neut % (Auto) 70.8 H Lymph % (Auto) 21.9 [place] % (Auto) 6.3 Eos % (Auto) 0.4 Baso % (Auto) 0.2 Absolute Neuts (auto) 10.5 H Absolute Lymphs (auto) 3.25 Nucleated RBC % 0 Sodium 138 Potassium 3.4 L Chloride 101 Carbon Dioxide 28.0 Anion Gap 9 BUN 20 H Creatinine 0.96 Est GFR (MDRD) Af Amer 71 Est GFR (MDRD) Non-Af 59 L BUN/Creatinine Ratio 20.7 H Glucose 108 H Calcium 8.7 Total Bilirubin 0.50 AST 49 H ALT 37 Alkaline Phosphatase 76 Total Protein 6.7 Albumin 2.9 L Globulin 3.8 Albumin/Globulin Ratio 0.8 L Radiography Chest X-Ray - ED: 1 View, Read by ED Physician, Normal, Lungs, Mediastinum, Bony Structures, No Acute Disease and Chronic Changes Diagnostic Testing: Clinical Impression(s) from Imaging Studies Chest X-Ray 06/28/24 14:40 IMPRESSION: No acute abnormality is seen. Electronically Signed: Wellington Fontaine MD at 15:01 EDT , Chest x-ray, portable, single view interpreted by myself shows no acute abnorma lity. Normal cardiac silhouette. No pneumonia. Chronic changes. Discharge Plan Triage Chief Complaint: Diarrhea ED Provider: Raz Larsen Dx/Rx/DC Orders Clinical Impression: Diarrhea, Vomiting Instructions: ED Diarrhea, Unknown Cause, ED Vomiting (Adult) Prescriptions: No Action rosuvastatin [Crestor] 5 mg tablet 5 mg PO SUMOWEFR calcium carbonate [Tums] 200 mg calcium (500 mg) tablet,chewable 200 mg PO DAILY cholecalciferol (vitamin D3) 50 mcg (2,000 unit) capsule 7,000 unit PO DAILY coenzyme Q10 100 mg capsule 100 mg PO DAILY metoprolol tartrate 50 mg tablet 50 mg PO BID Qty: 180 3RF Eliquis 5 mg tablet 5 mg PO BID Qty: 180 4RF Patient Comments: To restart Oct 01, s/p colonoscopy zinc 50 mg capsule 50 mg PO DAILY ascorbic acid (vitamin C) [C-1000] 1,000 mg tablet 2 g PO DAILY potassium chloride 20 mEq tablet extended release 20 meq PO DAILY bupropion HCl 150 mg tablet extended release 24 hr 150 mg PO DAILY ferrous sulfate [FeroSul] 325 mg (65 mg iron) tablet 325 mg PO DAILY trametinib [Mekinist] 10 mg PO DAILY betamethasone, augmented 0.05 % cream topical BID PRN PRN (Reason: skin irritation) acetylcysteine 600 mg capsule PO furosemide [Lasix] 40 mg tablet 40 mg PO BID Qty: 60 3RF sulfasalazine 500 mg tablet,delayed release (DR/EC) 1 g PO DAILY Qty: 60 11RF folic acid 1 mg tablet 1 mg PO DAILY Qty: 90 3RF amiodarone 200 mg tablet 200 mg PO QHS Qty: 90 3RF diltiazem HCl 120 mg capsule,extended release 24hr 120 mg PO Q12H Qty: 180 3RF Primary Care Provider: Gini Ojeda Referrals: Gini Ojeda, DO [Primary Care Provider] - As soon as possible Activity Restrictions/Additional Instructions: Plenty of fluids and rest. Follow-up with your doctor to ensure you are improving. The stool culture will not be back for 24 to 48 hours. Imodium as needed for diarrhea. Print Language: Mauritanian Disposition Disposition: Home, Self Care
[2024-06-28 14:23] LABS: Absolute Lymphocyte Count 3.25 X10^3/uL (0.83-4.51); Absolute Neutrophil Count 10.5 X10^3/uL (2.0-7.7); Basophil# 0.03 X10^3/uL; Basophil% 0.2 % (0-1); Eosinophil# 0.06 X10^3/uL; Eosinophils% 0.4 % (0-5); Hematocrit 41.5 % (37-47); Hemoglobin 13.1 g/dL (12.0-15.0); Lymphocyte # 3.25 X10^3/ul (0.83-4.51); Lymphocyte % 21.9 % (19-41); Mean Corp Hgb Conc 31.6 g/dL (32-36); Mean Corpuscular Hgb 31.3 pg (27.0-32.0); Mean Platelet Vol. 8.7 fl (6.2-12.0); Monocyte# 0.93 X10^3/uL; Monocyte% 6.3 % (0-10); NRBC Flagged by Analyzer 0 % (0-5); Neutrophil # 10.49 X10^3/uL (2.7-7.7); Neutrophil % 70.8 % (47-70); Platelet Count 416 K/mm3 (150-450); RBC Distribution Width CV 15.9 % (11.6-14.6); RBC Distribution Width SD 58.5 fl (35.1-43.9); Red Blood Count 4.19 M/mm3 (4.2-5.4); White Blood Count 14.8 K/mm3 (4.4-11.0)
[2024-06-28] MEDS: Ondansetron 4 MG/2 ML Vial IV (14:23)
[2024-06-28] MEDS: 0.9% Normal Saline (1000mL) 1,000 ML 999 ML IV (14:23)
--- NOTE | 2024-06-28 14:40 | RAD_ITS ---
STUDY: X-RAY CHEST REASON FOR EXAM: Female, 79 years old. Weakness TECHNIQUE: Single AP portable view of the chest. COMPARISON: Comparison is made with prior study of February 08, 2024. FINDINGS: EKG electrodes are seen. Hyperinflation. No acute abnormality is seen. There is no demonstrated pleural abnormality. Normal size heart. Normal mediastinum and nguyen. Normal visualized pulmonary arteries. Normal visualized aortic arch and descending thoracic aorta. Normal visualized thoracic spine. The patient is status post right reverse shoulder replacement. There is no demonstrated abnormality of the visualized soft tissue structures of the upper abdomen. RAD/Chest 1 View (Portable) IMPRESSION: No acute abnormality is seen. Electronically Signed: Wellington Fontaine MD at 15:01 EDT ,
[2024-06-28 14:49] LABS: ALB/GLOB Ratio 0.8 RATIO (0.9-2.4); AST(SGOT) 49 U/L (15-37); Alanine Aminotransfer ALT/SGPT 37 U/L (13-56); Albumin, Serum 2.9 g/dL (3.2-5.0); Alkaline Phosphatase 76 U/L (45-117); Anion Gap 9 (5-15); BUN 20 mg/dL (7-18); BUN/Creat Ratio 20.7 RATIO (10-20); Calcium,Total 8.7 mg/dL (8.5-10.1); Chloride 101 mmol/L (98-107); Creatinine, Serum 0.96 mg/dL (0.55-1.02); EST Glomerular Filtration Rate 59 mL/min (>60); Est Glom Filt Rate - Afr Amer 71 mL/min (>60); Globulin 3.8 g/dL (2.2-4.2); Glucose 108 mg/dL (74-106); Potassium 3.4 mmol/L (3.5-5.1); Protein, Total 6.7 g/dL (6.4-8.2); Sodium Level 138 mmol/L (136-145)
[2024-06-28 15:35] VITALS: BP 126/78; PULSE 78; RESP 16; TEMP 36.6; O2SAT 98
[2024-06-28 15:37] VITALS: O2SAT 96
[2024-06-28 17:12] VITALS: BP 128/76; PULSE 64; RESP 18; TEMP 37; O2SAT 95
[2024-06-28 17:38] VITALS: BP 124/64; PULSE 78; RESP 16; TEMP 36.6; O2SAT 99
== END 2024-06-28 17:39 | disposition home or self-care (01) ==
PROVIDERS: Emergency Provider Emergency Medicine; PCP Internal Medicine; Visit Provider Emergency Medicine
DX: R19.7 Diarrhea, unspecified (principal); C78.6 Secondary malignant neoplasm of retroperitoneum and peritoneum; J44.9 Chronic obstructive pulmonary disease, unspecified; I48.0 Paroxysmal atrial fibrillation; R11.2 Nausea with vomiting, unspecified; E78.5 Hyperlipidemia, unspecified; I10 Essential (primary) hypertension; Z79.01 Long term (current) use of anticoagulants; Z79.899 Other long term (current) drug therapy
CPT/HCPCS: 71045; 80053; 85025; 87493; 87506; 87631; 96374; 99284; J7030; A4216; J2405

== ENCOUNTER 2024-07-11 17:34 | Emergency (ER) | payer MEDICARE, SELFPAY ==
[2024-07-11 17:35] VITALS: BP 155/73; PULSE 107; RESP 16; TEMP 36.4; O2SAT 98; BMI 32.8
[2024-07-11 18:25] LABS: Absolute Lymphocyte Count 1.95 X10^3/uL (0.83-4.51); Absolute Neutrophil Count 6.9 X10^3/uL (2.0-7.7); Basophil# 0.02 X10^3/uL; Basophil% 0.2 % (0-1); Eosinophil# 0.16 X10^3/uL; Eosinophils% 1.6 % (0-5); Hematocrit 33.7 % (37-47); Lymphocyte # 1.95 X10^3/ul (0.83-4.51); Mean Corp Hgb Conc 32.6 g/dL (32-36); Mean Corpuscular Hgb 31.6 pg (27.0-32.0); Mean Corpuscular Volume 96.8 fL (81-99); Mean Platelet Vol. 8.3 fl (6.2-12.0); Monocyte% 11.7 % (0-10); NRBC Flagged by Analyzer 0.2 % (0-5); Neutrophil # 6.89 X10^3/uL (2.7-7.7); Neutrophil % 66.9 % (47-70); Platelet Count 333 K/mm3 (150-450); RBC Distribution Width CV 15.9 % (11.6-14.6); RBC Distribution Width SD 56.7 fl (35.1-43.9); Red Blood Count 3.48 M/mm3 (4.2-5.4); White Blood Count 10.3 K/mm3 (4.4-11.0)
[2024-07-11 18:47] LABS: BNP,B-Type NATRIURETIC PEPTIDE 60.7 pg/mL (0-100)
[2024-07-11 18:50] LABS: ALB/GLOB Ratio 0.7 RATIO (0.9-2.4); AST(SGOT) 31 U/L (15-37); Alanine Aminotransfer ALT/SGPT 26 U/L (13-56); Albumin, Serum 2.8 g/dL (3.2-5.0); Alkaline Phosphatase 61 U/L (45-117); Anion Gap 10 (5-15); BUN 17 mg/dL (7-18); BUN/Creat Ratio 18.3 RATIO (10-20); Calcium,Total 9.1 mg/dL (8.5-10.1); Chloride 103 mmol/L (98-107); Creatinine, Serum 0.93 mg/dL (0.55-1.02); EST Glomerular Filtration Rate 62 mL/min (>60); Est Glom Filt Rate - Afr Amer 75 mL/min (>60); Estimated Creatinine Clearance 56.22 ml/min; Glucose 104 mg/dL (74-106); Potassium 2.9 mmol/L (3.5-5.1); Protein, Total 6.8 g/dL (6.4-8.2); Sodium Level 140 mmol/L (136-145); Troponin-I HS 11 pg/mL (3.0-54.0)
[2024-07-11 19:34] VITALS: BP 155/73; PULSE 107; RESP 16; TEMP 36.4; O2SAT 98
== END 2024-07-11 19:45 | disposition home or self-care (01) ==
PROVIDERS: Emergency Provider Emergency Medicine; PCP Internal Medicine; Visit Provider Emergency Medicine
DX: L89.321 Pressure ulcer of left buttock, stage 1 (principal); J44.9 Chronic obstructive pulmonary disease, unspecified; I48.0 Paroxysmal atrial fibrillation; L89.311 Pressure ulcer of right buttock, stage 1; I89.0 Lymphedema, not elsewhere classified; K76.0 Fatty (change of) liver, not elsewhere classified; I87.8 Other specified disorders of veins; Z79.899 Other long term (current) drug therapy
CPT/HCPCS: 80053; 83880; 84484; 85025; 93005; 99282; A4216

== ENCOUNTER 2024-09-04 18:06 | Emergency (ER) | payer MEDICARE, SELFPAY ==
[2024-09-04 18:07] VITALS: BP 114/64; PULSE 88; RESP 16; TEMP 36.8; O2SAT 98; BMI 32.8
--- NOTE | 2024-09-04 18:36 | CT_ITS ---
STUDY: CT Abdomen And Pelvis W/ Contrast Injection 09/04/2024 8:20 PM REASON FOR EXAM: Female, 79 years old. Abdominal pain Nausea, vomiting, diarrhea, Individualized dose optimization techniques were used for this CT. COMPARISON: None. TECHNIQUE: CT Abdomen And Pelvis W/ Contrast Injection IV 100mL [id number] FINDINGS: There are atherosclerotic calcifications of visualized coronary arteries. Small right pleural effusion. 9 mm nodule in the right lower lobe. Normal liver. Normal gallbladder and extrahepatic biliary system. Normal spleen. Normal pancreas. Normal bilateral adrenal glands. No acute findings of the right kidney. There are hypodensities in the left kidney. These are consistent for cysts. No follow up required. Normal visualized stomach. There are dilated loops of the small intestine with a non-distended colon consistent with a small bowel obstruction. Transition point is within the umbilical hernia. There are multiple colonic diverticula consistent with diverticulosis. There is non-visualization of the appendix. Diffuse linear serpiginous soft tissue masses along the omentum concerning for omental caking. This extends into the region of the midline umbilical or ventral hernia. There are calcifications of the abdominal aorta. This is consistent for atherosclerotic disease. There is NO abdominal aortic aneurysm. Vascular workup can be obtained based on clinical correlation. Normal inferior vena cava. Subcentimeter mesenteric lymph nodes. Air in the urinary bladder. This is likely iatrogenic. There is absence of the uterus consistent with a prior hysterectomy. Normal abdominal wall. There are diffuse degenerative changes of the visualized lumbar spine. There is bilateral neural foraminal stenosis at L4-5 and L5-S1. Scoliosis of the thoracolumbar spine. CT/Abdomen/Pelvis W IV Cont ONLY IMPRESSION: (NOT LISTED IN ORDER OF SIGNIFICANCE) 9 mm right lower lobe nodule. Metastatic focus is difficult to exclude. Small right pleural effusion. Diffuse omental metastatic disease. Small bowel obstruction which appears to be caused by an umbilical hernia that contains small bowel loops. Other findings as above. Electronically Signed: Ruddy Palma MD at 20:24 EST ,
--- NOTE | 2024-09-04 18:37 | EDS_ITS ---
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 When she awoke, she felt queasy and nauseated. She started having multiple episodes of vomiting, at least once every hour until it stopped around an hour and a half ago. Additionally, she states she started having diarrhea and watery stool that was black in color. She denies any abdominal pain or distention. Past abdominal surgeries include hysterectomy and cholecystectomy, but she is unsure about appendectomy. She was unable to take her chemotherapy pill today. She feels mildly weak and dehydrated with dry mouth. She states she called her primary care provider and was told she may have norovirus, but if she is unable to tolerate fluids that she needed to come to the emergency department. [facility] Medical History Paroxysmal atrial fibrillation Chronic anticoagulation Ovarian cancer Chronic anticoagulation Anemia Bladder prolapse History of cardioversion Cardiology follow-up encounter Cellulitis Multiple thyroid nodules Multiple thyroid nodules NAFLD (nonalcoholic fatty liver disease) Diarrhea Steatosis Hepatomegaly Non-smoker Shortness of breath on exertion COPD (chronic obstructive pulmonary disease) Recurrent ventral incisional hernia Thyroid nodule Right lower lobe pulmonary nodule Atrial fibrillation with rapid ventricular response (10/12/20) Nonrheumatic mitral valve stenosis with insufficiency Essential (primary) hypertension Peritoneal carcinomatosis Ovarian cancer Cholelithiasis Chronic cholecystitis Calculus of gallbladder with chronic cholecystitis without obstruction Vitamin D deficiency Hyperlipemia Carpal tunnel syndrome, bilateral Bilateral carotid artery stenosis Asthma Fatty liver Sciatica Osteopenia Paresthesia Home Medications ?Medication ?Instructions ?Recorded ?Last Taken ?Type calcium carbonate (Tums) 200 mg PO DAILY supplement 10/09/17 Unknown History rosuvastatin 5 mg tablet (Crestor) 5 mg PO SUMOWEFR CHOLESTEROL 10/09/17 10/23/23 History coenzyme Q10 100 mg capsule 100 mg PO DAILY 10/23/20 Unknown History cholecalciferol (vitamin D3) 50 7,000 unit PO DAILY supplement 03/16/23 Unknown History mcg (2,000 unit) capsule furosemide 40 mg tablet (Lasix) 40 mg PO BID #60 tabs 07/20/23 Unknown Rx ascorbic acid (vitamin C) 1,000 mg 2 g PO DAILY 09/23/23 Unknown History tablet (C-1000) potassium chloride 20 mEq 20 meq PO DAILY 09/23/23 Unknown History tablet,extended release zinc 50 mg capsule 50 mg PO DAILY 09/23/23 Unknown History bupropion HCl 150 mg 24 hr tablet, 150 mg PO DAILY 10/25/23 Unknown History extended release ferrous sulfate 325 mg (65 mg 325 mg PO DAILY 10/25/23 Unknown History iron) tablet (FeroSul) trametinib 10 mg PO DAILY 10/25/23 Unknown History folic acid 1 mg tablet 1 mg PO DAILY #90 tabs 10/29/23 Unknown Rx sulfasalazine 500 mg 1 g (2 x 500 mg) PO DAILY #60 tabs 10/29/23 Unknown Rx tablet,delayed release apixaban 5 mg tablet (Eliquis) 5 mg PO BID #180 tabs 02/25/24 Unknown Rx amiodarone 200 mg tablet 200 mg PO QHS #90 tabs 05/13/24 Unknown Rx diltiazem HCl 120 mg 120 mg PO Q12H #180 caps 05/13/24 Unknown Rx capsule,extended release 24 hr betamethasone, augmented 0.05 % applic topical BID PRN PRN skin 06/28/24 Unknown History topical cream irritation ondansetron 4 mg disintegrating 4 mg PO Q8H PRN PRN Nausea #10 tabs 06/28/24 Unknown Rx tablet mupirocin calcium 2 % topical cream 1 applic topical TID #15 grams 07/11/24 Unknown Rx nystatin 100,000 unit/gram topical 1 applic topical TID #60 grams 07/11/24 Unknown Rx powder metoprolol tartrate 50 mg tablet 50 mg PO BID #180 tabs 08/04/24 Unknown Rx Allergy/AdvReac Type Severity Reaction Status Date / Time morphine AdvReac Severe Nausea/Vom/ Verified 09/04/24 18:07 Diarrhea penicillin G AdvReac Unknown Unknown Verified 09/04/24 18:07 Family History Father CAD (coronary artery disease) Diabetes Mother Lymphoma Sister Colon cancer Brother Colon cancer Surgical History History of rectal polypectomy History of hysterectomy with unilateral oophorectomy (1983) History of cholecystectomy (10/23/17) H/O nasal polypectomy History of colonoscopy History of hernia repair (10/2020) History of shoulder replacement (2019) History of exploratory laparotomy (10/2020) Status post laser ablation of incompetent vein Social History household members: spouse Smoking Status: Never smoker second hand exposure: No alcohol intake: never details: rare substance use type: does not use caffeine: No what type of physical activity do you participate in: walking frequency: 3-4 times per week duration: < 15 minutes/day patricia/gnosticism: [employer] seatbelt use: always do you feel safe at home: Yes ROS ROS ED ROS Narrative Constitutional: No fever, no chills. Generalized weakness. HEENT: Positive dry mouth. Cardiovascular: No chest pain. No palpitations. No pedal edema. Respiratory: No cough, no shortness of breath. Abdominal: No abdominal pain. Multiple episodes of nausea, vomiting, and diarrhea. Genitourinary: No dysuria. No hematuria. Musculoskeletal: No myalgias. No arthralgias. Neurologic: No headaches. No dizziness. No lightheadedness. Skin: No rash. No change in color. EXAM Physical Exam Narrative Exam Narrative: Afebrile. Vital signs noted. Nontoxic-appearing. HEENT examination shows tacky mucous membranes. Cardiovascular examination reveals a regular rate and rhythm. Lungs are clear to auscultation bilaterally. Abdomen is soft with mild distention and hypoactive bowel sounds. No guarding or rebound. Neurological examination nonfocal, nonlateralizing. Const Vital Signs: 09/04/24 18:07 09/04/24 20:06 09/04/24 21:59 Temperature 98.2 F 98.2 F Temperature Source Oral Pulse Rate 88 78 78 Respiratory Rate 16 16 16 Blood Pressure 114/64 127/57 H 127/57 H Blood Pressure Mean 80 80 80 Pulse Ox 98 96 96 Oxygen Delivery Method Room Air Room Air 09/04/24 22:00 Temperature Temperature Source Pulse Rate 84 Respiratory Rate 18 Blood Pressure 128/51 H Blood Pressure Mean 76 Pulse Ox 93 Oxygen Delivery Method Room Air MDM MDM MDM Narrative Medical decision making narrative: Differential diagnosis includes but not limited to gastroenteritis/norovirus versus bowel obstruction versus pancreatitis. 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 This is to help rule out obstruction. CBC and CMP as well as lipase will be obtained to rule out dehydration or other electrolyte abnormality, and the lipase to rule out burnett creatitis. She was bolused normal saline 1 L intravenously and administered ondansetron for nausea. I reviewed her laboratory work and she has a leukocytosis of 19.4 with hemoglobin normal at 13.8, hematocrit 43.9, platelet count normal at 417. CMP is significant for BUN of 23 and creatinine 1.18 with glucose elevated at 151 but normal anion gap of 8. LFTs show an AST of 50 which I think is nonspecific, LFTs otherwise unremarkable. Lipase normal at 33 so I doubt pancreatitis as a cause of her multiple episodes of vomiting. While there are 5-10 WBCs in her urine and positive nitrites, she not having dysuria so I will defer antibiotics. Urine culture was added. Of significance is the results of the CT of the abdomen and pelvis with IV contrast. While there is a 9 mm right lower lung nodule, there appears to be a small bowel obstruction caused by an umbilical hernia which contains small bowel loops. Upon repeat examination, patient has not been vomiting. She is not having abdominal pain. I am unable to palpate a reducible hernia. NG tube will be placed, and patient discussed with Dr. Arredondo. She agrees with NG tube placement and transfer. She has a wide neck hernia so the incarceration may be secondary to her carcinoma is what she was thinking. Patient will be discussed with the [facility] Transfer line. I was able to discuss the patient with the surgeon on-call Dr. Ohara, who wanted the patient to be an ED to ED transfer. I then discussed patient with Dr. Rausch with emergency medicine who also accepted the patient in transfer. Disposition is transferred in stable condition. History & Record Review Discussion w/independent historian: Patient Lab Data Attestation: I reviewed the patient's lab results. Labs: Laboratory Results - last 24 hr 09/04/24 09/04/24 18:54 20:00 WBC 19.4 H RBC 4.50 Hgb 13.8 Hct 43.9 MCV 97.6 MCH 30.7 MCHC 31.4 L RDW Std Deviation 51.8 H RDW Coeff of Jaciel 14.5 Plt Count 417 MPV 8.6 Immature Gran % (Auto) 0.700 Neut % (Auto) 89.5 H Lymph % (Auto) 4.3 L [place] % (Auto) 5.1 Eos % (Auto) 0.2 Baso % (Auto) 0.2 Absolute Neuts (auto) 17.4 H Absolute Lymphs (auto) 0.84 Nucleated RBC % 0 Sodium 136 Potassium 4.9 Chloride 100 Carbon Dioxide 28.0 Anion Gap 8 BUN 23 H Creatinine 1.18 H Estim Creat Clear Calc 44.31 Est GFR (MDRD) Af Amer 57 L Est GFR (MDRD) Non-Af 47 L BUN/Creatinine Ratio 19.5 Glucose 151 H Calcium 9.6 Total Bilirubin 0.50 AST 50 H ALT 24 Alkaline Phosphatase 72 Total Protein 7.7 Albumin 3.1 L Globulin 4.6 H Albumin/Globulin Ratio 0.7 L Lipase 33 Urine Color Yellow Urine Clarity Sl. Cloudy Urine pH 5.0 Ur Specific [place] 1.020 Urine Protein 30 H Urine Glucose (UA) Normal Urine Ketones 5 H Urine Occult Blood 50 H Urine Nitrite Positive H Urine Bilirubin 6 H Urine Urobilinogen 1 H Ur Leukocyte Esterase 500 H Urine RBC 0-5 SEEN Urine WBC 5-10 SEEN Ur Squamous Epith Cells 5-10 SEEN Ur Transition Epith Cell 0-5 SEEN Ur Renal Epithelial Cell 0-5 SEEN Urine Bacteria 3+ Urine Mucus 1+ Radiography Diagnostic Testing: Clinical Impression(s) from Imaging Studies Abdomen/Pelvis CT 09/04/24 18:36 IMPRESSION: (NOT LISTED IN ORDER OF SIGNIFICANCE) 9 mm right lower lobe nodule. Metastatic focus is difficult to exclude. Small right pleural effusion. Diffuse omental metastatic disease. Small bowel obstruction which appears to be caused by an umbilical hernia that contains small bowel loops. Other findings as above. Electronically Signed: Ruddy Palma MD at 20:24 EST , KUB X-Ray 09/04/24 21:20 IMPRESSION: There is a feeding tube/ nasogastric tube noted. The tip is in the region of the stomach. Electronically Signed: Ruddy Palma MD at 21:33 EST , Management Discussion w/another healthcare provider: [facility] (Dr. Arredondo, Dr. Ohara, Dr. Rausch) Discharge Plan Triage Chief Complaint: Nausea/Vomiting/Diarrhea ED Provider: Osiel Nettles Dx/Rx/DC Orders Clinical Impression: Small bowel obstruction, Incarcerated hernia, Ovarian carcinoma Prescriptions: No Action rosuvastatin [Crestor] 5 mg tablet 5 mg PO SUMOWEFR calcium carbonate [Tums] 200 mg calcium (500 mg) tablet,chewable 200 mg PO DAILY cholecalciferol (vitamin D3) 50 mcg (2,000 unit) capsule 7,000 unit PO DAILY coenzyme Q10 100 mg capsule 100 mg PO DAILY Eliquis 5 mg tablet 5 mg PO BID Qty: 180 4RF Patient Comments: To restart Oct 01, s/p colonoscopy zinc 50 mg capsule 50 mg PO DAILY ascorbic acid (vitamin C) [C-1000] 1,000 mg tablet 2 g PO DAILY potassium chloride 20 mEq tablet extended release 20 meq PO DAILY bupropion HCl 150 mg tablet extended release 24 hr 150 mg PO DAILY ferrous sulfate [FeroSul] 325 mg (65 mg iron) tablet 325 mg PO DAILY trametinib [Mekinist] 10 mg PO DAILY betamethasone, augmented 0.05 % cream topical BID PRN PRN (Reason: skin irritation) ondansetron 4 mg tablet,disintegrating 4 mg PO Q8H PRN PRN (Reason: Nausea) Qty: 10 0RF mupirocin calcium 2 % cream 1 applic topical TID Qty: 15 0RF nystatin 100,000 unit/gram powder 1 applic topical TID Qty: 60 0RF furosemide [Lasix] 40 mg tablet 40 mg PO BID Qty: 60 3RF sulfasalazine 500 mg tablet,delayed release (DR/EC) 1 g PO DAILY Qty: 60 11RF folic acid 1 mg tablet 1 mg PO DAILY Qty: 90 3RF amiodarone 200 mg tablet 200 mg PO QHS Qty: 90 3RF diltiazem HCl 120 mg capsule,extended release 24hr 120 mg PO Q12H Qty: 180 3RF metoprolol tartrate 50 mg tablet 50 mg PO BID Qty: 180 3RF Primary Care Provider: Gini Ojeda Referrals: Gini Ojeda DO [Primary Care Provider] - Print Language: Qatari Disposition Disposition: Acute Care Hospital Discharge Location: [facility] Discharge Date/Time: 09/04/24 23:03
[2024-09-04 19:08] LABS: Absolute Lymphocyte Count 0.84 X10^3/uL (0.83-4.51); Absolute Neutrophil Count 17.4 X10^3/uL (2.0-7.7); Basophil# 0.04 X10^3/uL; Basophil% 0.2 % (0-1); Eosinophil# 0.03 X10^3/uL; Eosinophils% 0.2 % (0-5); Hematocrit 43.9 % (37-47); Hemoglobin 13.8 g/dL (12.0-15.0); Lymphocyte # 0.84 X10^3/ul (0.83-4.51); Lymphocyte % 4.3 % (19-41); Mean Corp Hgb Conc 31.4 g/dL (32-36); Mean Corpuscular Hgb 30.7 pg (27.0-32.0); Mean Corpuscular Volume 97.6 fL (81-99); Mean Platelet Vol. 8.6 fl (6.2-12.0); Monocyte# 0.98 X10^3/uL; Monocyte% 5.1 % (0-10); NRBC Flagged by Analyzer 0 % (0-5); Neutrophil # 17.38 X10^3/uL (2.7-7.7); Neutrophil % 89.5 % (47-70); Platelet Count 417 K/mm3 (150-450); RBC Distribution Width CV 14.5 % (11.6-14.6); RBC Distribution Width SD 51.8 fl (35.1-43.9); White Blood Count 19.4 K/mm3 (4.4-11.0)
[2024-09-04] MEDS: Ondansetron 4 MG/2 ML Vial IV ×2 (19:09→23:02)
[2024-09-04] MEDS: 0.9% Normal Saline (1000mL) 1,000 ML 999 ML IV (19:09)
[2024-09-04 19:43] LABS: ALB/GLOB Ratio 0.7 RATIO (0.9-2.4); AST(SGOT) 50 U/L (15-37); Alanine Aminotransfer ALT/SGPT 24 U/L (13-56); Albumin, Serum 3.1 g/dL (3.2-5.0); Alkaline Phosphatase 72 U/L (45-117); Anion Gap 8 (5-15); BUN 23 mg/dL (7-18); BUN/Creat Ratio 19.5 RATIO (10-20); Calcium,Total 9.6 mg/dL (8.5-10.1); Chloride 100 mmol/L (98-107); Creatinine, Serum 1.18 mg/dL (0.55-1.02); EST Glomerular Filtration Rate 47 mL/min (>60); Est Glom Filt Rate - Afr Amer 57 mL/min (>60); Estimated Creatinine Clearance 44.31 ml/min; Globulin 4.6 g/dL (2.2-4.2); Glucose 151 mg/dL (74-106); Lipase 33 U/L (13-75); Potassium 4.9 mmol/L (3.5-5.1); Protein, Total 7.7 g/dL (6.4-8.2); Sodium Level 136 mmol/L (136-145)
[2024-09-04 20:06] VITALS: BP 127/57; PULSE 78; RESP 16; O2SAT 96
[2024-09-04 20:15] LABS: Color, Urine Yellow (Yellow); Glucose, Dipstick Normal (Normal); Ketone-Dipstick 5 mg/dl (Negative); Leukocyte Esterase-Dipstick 500 /ul (Negative); Nitrite-Dipstick Positive (Negative); Occult Blood-Urine 50 /ul (Negative); Protein-Dipstick 30 mg/dl (Negative); Urine Clarity Sl. Cloudy (Clear); Urine Urobilinogen 1 mg/dl (Normal)
[2024-09-04 20:16] LABS: Urine Bilirubin Dipstick 6 mg/dL (Negative)
[2024-09-04 20:24] LABS: Red Blood Cells-Urine 0-5 SEEN /hpf (0-5); Squamous Epithelial Cells - UA 5-10 SEEN /hpf (5-10); Transitional Epithelial - Ur 0-5 SEEN /hpf (0-5); White Blood Cells 5-10 SEEN /hpf (0-5)
[2024-09-04 20:25] LABS: Bacteria 3+ /hpf (None Seen); Mucous, Urine 1+ /hpf (<or=2+); Renal Epithelial Cells 0-5 SEEN /hpf (0-5)
--- NOTE | 2024-09-04 21:15 | ED.RN ---
14 fr NG inserted through left no to 50.
--- NOTE | 2024-09-04 21:20 | RAD_ITS ---
STUDY: XR Abdomen 1 View 09/04/2024 9:16 PM REASON FOR EXAM: Female, 79 years old. NG tube placement -- KUB with both diaphragms for NG/OG Verification TECHNIQUE: XR Abdomen 1 View COMPARISON: None FINDINGS: Normal visualized lung bases. There is a feeding tube/ nasogastric tube noted. The tip is in the region of the stomach. There is no demonstrated free abdominal air. The visualized liver, spleen and kidneys are grossly normal in size and morphology. Normal soft tissue structures. Normal visualized history osseous structures. RAD/Abdomen Single View (Portable) IMPRESSION: There is a feeding tube/ nasogastric tube noted. The tip is in the region of the stomach. Electronically Signed: Ruddy Palma MD at 21:33 EST ,
--- NOTE | 2024-09-04 21:57 | ED.RN ---
CALLED [facility] @ 2200 TO ARRANGE TRANSPORT, SPOKE TO CHAZ. MASON 30-45 MIN ([id number]).
--- NOTE | 2024-09-04 21:58 | ED.RN ---
Daughter Aurora called via phone and updated on patient.
[2024-09-04 21:59] VITALS: BP 127/57; PULSE 78; RESP 16; TEMP 36.8; O2SAT 96
[2024-09-04 22:00] VITALS: BP 128/51; PULSE 84; RESP 18; O2SAT 93
== END 2024-09-04 23:03 | disposition short-term general hospital (02) ==
PROVIDERS: Emergency Provider Emergency Medicine; PCP Internal Medicine; Visit Provider Emergency Medicine
DX: K56.609 Unspecified intestinal obstruction, unspecified as to partial versus complete obstruction (principal); C56.9 Malignant neoplasm of unspecified ovary; J44.9 Chronic obstructive pulmonary disease, unspecified; K42.0 Umbilical hernia with obstruction, without gangrene
CPT/HCPCS: 74018; 74177; 80053; 81001; 83690; 85025; 96361; 96374; 96376; 99284; Q9967; A4216; J2405

== ENCOUNTER 2024-09-20 17:24 | Inpatient (IN) | payer MEDICARE, SELFPAY ==
[2024-09-20 18:06] VITALS: BP 135/69; PULSE 69; RESP 18; TEMP 36.3; O2SAT 99; BMI 30.7
[2024-09-20 18:49] VITALS: RESP 18; O2SAT 98
--- NOTE | 2024-09-20 19:38 | PCM.HP.STD ---
[facility] - General General Date of Admission: 09/20/24 Date of Service: 09/21/24 Chief Complaint: Here for rehabilitation. HPI Narrative FAVIO HE, is a 79 Female who presents with followin09/04/2024 [facility] ED nausea, vomiting, diarrhea. Ovarian cancer with metastasis, nausea, vomiting, watery diarrhea, black in color, unable to take chemotherapy pill. PCP concerned with norovirus. Normal saline 1 liter IV, Zofran given. WBC 19.4. CT abdomen/pelvis showed small bowel obstruction 2/2 umbilical hernia, which contains small bowel loops. Also showed omental caking from ovarian cancer. Unable to reduce hernia, NG tube placed. Transfer to [facility]. 09/05/2024 Admit to [facility]. Conservative management of malignant small bowel obstruction. 09/06/2024 ANALYTICAL MANAGER/ONC recommended conservative management of malignant obstruction with transition point in hernia sac. 09/07/2024 Improved, slept well. NGT output 100cc. 09/08/2024 PICC placed for TPN. 09/09/2024 NGT uncomfortable. Passed gas x 2, small loose bowel movement. 09/10/2024 Doing well, minimal nausea, passed gas. 09/19/2024 Tolerating oral diet, bowel movements more normal. Augmentin, Azithromycin for hospital acquired pneumonia, antibiotics thru 09/20/2024. WBC trending down. s/p NG, s/p GI with SBFT c/w partial obstruction. C. Diff negative. Protonix, Pepcid, Reglan scheduled. Mekinist for metastatic ovarian cancer, currently held. Urinary tract infection treated with Zosyn. Acute kidney injury resolved. 09/20/2024 Admit to TCU with debility, here for rehabilitation, strengthening, prior to discharge home. Summary below: Patient Checklist: - Diet: regular - GI ppx: Protonix, Pepcid - DVT ppx: SCDs, Eliquis - IV: PIV x1 - IVF: none - Tele: No - Oxygen: No - [place]: No - PT/mobility status: Yes - Care management rec's or Home Health Needs: awaiting placement - Code status: Full Disposition: - Expected discharge: pending cert/placement - Office follow-up: scheduled 10/04 Assessment AND Plan Small bowel obstruction (HCC) - Diagnosis on CT 09/04 - s/p NG - s/p GI small bowel follow through - consistent with partial obstruction - PICC in place - Protonix, pepcid, reglan scheduled Other pneumonia, unspecified organism - CXR with possible early consolidation. - Augmentin, azithromycin through 09/20 Urinary tract infection - urine culture sensitive to bactrim, ordered x3 days Malignant neoplasm of ovary (HCC) S/p lap RSO, lysis of adhesions, peritoneal bx 11/2020-05/2023 Letrozole 10/2023-current Trametinib - Trametinib held on admission - Omental caking on CT A/P 09/04 Chronic a-fib (HCC) - Amiodarone 200mg/d - Diltiazem CD 120mg BID - metoprolol 50mg BID - restarted home Eliquis 2.5mg BID History of umbilical hernia - s/p repair w/ small bowel resection in 2020 - transition point of SBO within the hernia, although hernia is not the cause of the SBO per general surgery team, requested to continue to follow in event for need for surgical exploration, would require mesh of abdominal defect COPD (chronic obstructive pulmonary disease) (HCC) - O2 sat >95 on RA Hyperlipemia - Home Crestor HELD Malnutrition of moderate degree (HCC) - appreciate recs from nutrition Alteration in skin integrity due to moisture - wound consulted [facility] Medical History (Updated 09/20/24 @ 19:[address] Kang Rich MD) Ovarian cancer Hyperlipemia Paroxysmal atrial fibrillation Chronic anticoagulation Chronic anticoagulation Anemia Bladder prolapse History of cardioversion Cardiology follow-up encounter Cellulitis Multiple thyroid nodules Multiple thyroid nodules NAFLD (nonalcoholic fatty liver disease) Diarrhea Steatosis Hepatomegaly Non-smoker Shortness of breath on exertion COPD (chronic obstructive pulmonary disease) Recurrent ventral incisional hernia Thyroid nodule Right lower lobe pulmonary nodule Atrial fibrillation with rapid ventricular response (10/12/20) Nonrheumatic mitral valve stenosis with insufficiency Essential (primary) hypertension Peritoneal carcinomatosis Ovarian cancer Cholelithiasis Chronic cholecystitis Calculus of gallbladder with chronic cholecystitis without obstruction Vitamin D deficiency Carpal tunnel syndrome, bilateral Bilateral carotid artery stenosis Asthma Fatty liver Sciatica Osteopenia Paresthesia Home Medications ?Medication ?Instructions ?Recorded ?Last Taken ?Type calcium carbonate (Tums) 200 mg PO DAILY supplement 10/09/17 Unknown History rosuvastatin 5 mg tablet (Crestor) 5 mg PO SUMOWEFR CHOLESTEROL 10/09/17 10/23/23 History coenzyme Q10 100 mg capsule 100 mg PO DAILY Supplement 10/23/20 Unknown History cholecalciferol (vitamin D3) 50 7,000 unit PO DAILY supplement 03/16/23 Unknown History mcg (2,000 unit) capsule furosemide 40 mg tablet (Lasix) 40 mg PO BID Edema #60 tabs 07/20/23 Unknown Rx ascorbic acid (vitamin C) 1,000 mg 2 g PO DAILY Supplement 09/23/23 Unknown History tablet (C-1000) potassium chloride 20 mEq 20 meq PO BID Supplement 09/23/23 Unknown History tablet,extended release zinc 50 mg capsule 50 mg PO DAILY Supplement 09/23/23 Unknown History bupropion HCl 150 mg 24 hr tablet, 150 mg PO DAILY Mood 10/25/23 Unknown History extended release ferrous sulfate 325 mg (65 mg 325 mg PO DAILY Supplement 10/25/23 Unknown History iron) tablet (FeroSul) trametinib 10 mg PO DAILY 10/25/23 Unknown History folic acid 1 mg tablet 1 mg PO DAILY #90 tabs 10/29/23 Unknown Rx sulfasalazine 500 mg 1 g (2 x 500 mg) PO DAILY #60 tabs 10/29/23 Unknown Rx tablet,delayed release diltiazem HCl 120 mg 120 mg PO Q12H Heart #180 caps 05/13/24 09/20/24 08:40 Rx capsule,extended release 24 hr betamethasone, augmented 0.05 % applic topical BID PRN PRN skin 06/28/24 Unknown History topical cream irritation ondansetron 4 mg disintegrating 4 mg PO Q8H PRN PRN Nausea #10 tabs 06/28/24 Unknown Rx tablet mupirocin calcium 2 % topical cream 1 applic topical TID #15 grams 07/11/24 Unknown Rx nystatin 100,000 unit/gram topical 1 applic topical TID #60 grams 07/11/24 Unknown Rx powder metoprolol tartrate 50 mg tablet 50 mg PO BID BP #180 tabs 08/04/24 09/20/24 08:30 Rx amiodarone 200 mg tablet 200 mg PO DAILY Heart Rhythm 09/20/24 09/20/24 08:30 History amoxicillin 875 mg-potassium 1 tab PO Q12H Antibiotic 09/20/24 09/20/24 08:45 History clavulanate 125 mg tablet apixaban 5 mg tablet (Eliquis) 2.5 mg PO BID Blood Thinner 09/20/24 09/20/24 08:30 History hydrocortisone 2.5 % topical cream applic topical BID Rash 09/20/24 Unknown History ibuprofen 600 mg tablet (IBU) 600 mg PO Q6H Pain 09/20/24 Unknown History metoclopramide HCl 5 mg tablet 5 mg PO TID Stomach 09/20/24 Unknown History sulfamethoxazole 800 1 tab PO BID Antibiotic 09/20/24 09/20/24 08:30 History mg-trimethoprim 160 mg tablet Allergy/AdvReac Type Severity Reaction Status Date / Time morphine AdvReac Severe Nausea/Vom/ Verified 09/04/24 18:07 Diarrhea penicillin G AdvReac Unknown Unknown Verified 09/04/24 18:07 Family History Father CAD (coronary artery disease) Diabetes Mother Lymphoma Sister Colon cancer Brother Colon cancer Surgical History History of rectal polypectomy History of hysterectomy with unilateral oophorectomy (1983) History of cholecystectomy (10/23/17) H/O nasal polypectomy History of colonoscopy History of hernia repair (10/2020) History of shoulder replacement (2019) History of exploratory laparotomy (10/2020) Status post laser ablation of incompetent vein Social History (Updated 09/20/24 @ 19:[address] Kang Rich MD) household members: none and other details: . Smoking Status: Never smoker second hand exposure: No alcohol intake: never details: rare substance use type: does not use caffeine: No what type of physical activity do you participate in: walking frequency: 3-4 times per week duration: < 15 minutes/day patricia/gnosticist: [employer] seatbelt use: always do you feel safe at home: Yes ROS Constitutional Constitutional: Reports weakness; Denies chills, fever(s) or weight gain ENT HEENT: Denies headache(s), nasal congestion or nasal discharge Cardiovascular Cardiovascular: Denies chest pain or palpitations Respiratory/Chest Respiratory/Chest: Denies cough, excessive phlegm production or shortness of breath with exertion Gastrointestinal Gastrointestinal: Denies abdominal pain, nausea or vomiting Genitourinary Genitourinary: Denies dysuria Musculoskeletal Musculoskeletal: Denies joint pain or joint swelling Integumentary Integumentary: Denies rash or wounds Neurologic Neurologic: Denies focal weakness, numbness or tingling Psychiatric Psychiatric: Denies anxiety, auditory hallucinations, depression, homicidal ideation or suicidal ideation Vital Signs Vital Signs Vital Signs: 09/20/24 18:06 09/20/24 18:49 Temperature 97.3 F L Temperature Source Temporal Pulse Rate 69 Pulse Rhythm Regular Pulse Strength Normal (2+) Respiratory Rate 18 18 Respiratory Effort Normal Respiratory Depth Normal Respiratory Pattern Normal Blood Pressure 135/69 H Blood Pressure Mean 91 Blood Pressure Source Monitor Blood Pressure Position Sitting Blood Pressure Location Left Arm Pulse Ox 99 98 Oxygen Delivery Method Room Air Room Air Weight Weight: 89.086 kg Body Mass Index (BMI) 30.7 Physical Exam Const alert General Appearance: cooperative HEENT normocephalic Eyes PERRL and EOMs intact bilaterally Neck supple, no JVD and no carotid bruits Resp normal respiratory effort, normal air movement and clear to auscultation bilaterally Cardio regular rate and regular rhythm GI normal to inspection, nondistended, normoactive bowel sounds, non-tender and non-distended GI Narrative: Umbilical hernia present, reducible. Extremity normal capillary refill General Extremity: Negative for edema Skin no rashes or lesions noted General Skin Exam: no breakdown Psych affect normal Appearance: appropriate Assessment & Plan Assessment/Plan (1) Debility: (2) Small bowel obstruction: (3) Umbilical hernia: (4) Ovarian cancer: (5) Hospital-acquired pneumonia: (6) Urinary tract infection: (7) Acute kidney injury: (8) Hyperlipemia: (9) Vitamin D deficiency: (10) Hypokalemia: (11) Depression: (12) Iron deficiency anemia: (13) Fatty liver: (14) Essential (primary) hypertension: (15) Atrial fibrillation: PLAN: Plan 79 year old female with below past medical history hospitalized for malignant small bowel obstruction, complicated by umbilical hernia, hospital acquired pneumonia, urinary tract infection, acute kidney injury, metastatic ovarian cancer, admitted to TCU with debility, here for rehabilitation, strengthening, prior to discharge home. Debility - PT/OT. Pain - Tylenol 1000mg q6 prn pain (1-5), Ibuprofen 600mg q6 prn pain (6-10) Bowel - senna/colace 1 tablet bid. Adult immunization - Administer pneumonia vaccine, covid vaccine, flu vaccine as appropriate. DVT prophylaxis - on Eliquis. Atrial fibrillation - Metoprolol 50mg bid, Diltiazem cd 120mg q12, Amiodarone 200mg daily, Eliquis 2.5mg bid. Hospital acquired pneumonia - Augmentin 875mg bidcm thru 09/22/2024. Urinary tract infection - Bactrim DS 1 tablet bidcm thru 09/23/2024. Iron deficiency anemia - Ferrous sulfate 325mg daily, Vitamin C 2000mg daily. Hyperlipidemia - Atorvastatin 10mg SuMoWeFr. 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 Indigestion - TUMS 200mg daily. Vitamin D deficiency - D3 125mcg daily. Edema - Furosemide 40mg bidlx. Skin irritation - HC 2.5% cream topical bid, Eucerin topical bid prn. Tinea Corporis - Nystatin powder topical bid. Nausea - Reglan 5mg tid, Zofran odt 4mg q8 prn. Hypokalemia - KCL 20meq bid.
[2024-09-20] MEDS: Smz/Tmp Ds Tablet 1 TABLET PO (20:25)
[2024-09-20] MEDS: Amox/Clavulanate 875 MG Tablet PO (20:25)
[2024-09-20 22:45] VITALS: BP 123/59; PULSE 67
[2024-09-20] MEDS: dilTIAZem CD 120 MG Capsule PO (22:47)
[2024-09-20] MEDS: Hydrocortisone 2.5% Crm 1 APPLIC TOPICAL (22:48)
[2024-09-20] MEDS: APIXABAN 2.5 MG TABLET (WCH) PO (22:48)
[2024-09-20 22:51] VITALS: BP 123/59; PULSE 67
[2024-09-20] MEDS: Potassium Chloride Oral Tablet 20 MEQ PO (22:51)
[2024-09-20] MEDS: Metoprolol Tartrate 50 MG Tablet PO (22:51)
[2024-09-20] MEDS: Nystatin Powder 15gm Bottle 1 APPLIC TOPICAL (22:52)
[2024-09-20] MEDS: Metoclopramide 5 MG TABLET PO (22:53)
[2024-09-20] MEDS: Senna/Docusate Sodium 1 Tablet PO (22:56)
[2024-09-21 05:26] VITALS: BP 108/57; PULSE 62
[2024-09-21] MEDS: Metoclopramide 5 MG TABLET PO ×3 (05:28→22:06)
[2024-09-21] MEDS: Furosemide 40 MG Tablet PO ×2 (05:28→14:25)
[2024-09-21] MEDS: Ibuprofen 600 MG Tablet PO ×3 (05:28→17:57)
[2024-09-21 05:52] LABS: Absolute Lymphocyte Count 1.56 X10^3/uL (0.83-4.51); Absolute Neutrophil Count 9.1 X10^3/uL (2.0-7.7); Basophil# 0.04 X10^3/uL; Basophil% 0.3 % (0-1); Eosinophil# 0.14 X10^3/uL; Eosinophils% 1.1 % (0-5); Hematocrit 32.5 % (37-47); Hemoglobin 10.5 g/dL (12.0-15.0); Lymphocyte # 1.56 X10^3/ul (0.83-4.51); Lymphocyte % 12.8 % (19-41); Mean Corp Hgb Conc 32.3 g/dL (32-36); Mean Corpuscular Hgb 31.3 pg (27.0-32.0); Mean Corpuscular Volume 96.7 fL (81-99); Mean Platelet Vol. 8.6 fl (6.2-12.0); Monocyte% 10.6 % (0-10); NRBC Flagged by Analyzer 0 % (0-5); Neutrophil # 9.08 X10^3/uL (2.7-7.7); Neutrophil % 74.5 % (47-70); Platelet Count 379 K/mm3 (150-450); RBC Distribution Width SD 52.8 fl (35.1-43.9); Red Blood Count 3.36 M/mm3 (4.2-5.4); White Blood Count 12.2 K/mm3 (4.4-11.0)
[2024-09-21 06:56] LABS: Anion Gap 8 (5-15); BUN 11 mg/dL (7-18); BUN/Creat Ratio 19.4 RATIO (10-20); Calcium,Total 8.5 mg/dL (8.5-10.1); Chloride 107 mmol/L (98-107); Creatinine, Serum 0.57 mg/dL (0.55-1.02); EST Glomerular Filtration Rate 109 mL/min (>60); Est Glom Filt Rate - Afr Amer 131 mL/min (>60); Estimated Creatinine Clearance 63.21 ml/min; Glucose 91 mg/dL (74-106); Potassium 3.5 mmol/L (3.5-5.1); Sodium Level 138 mmol/L (136-145)
[2024-09-21] MEDS: Potassium Chloride Oral Tablet 20 MEQ PO ×2 (08:19→22:05)
[2024-09-21] MEDS: Calcium Carbonate 500 MG Tablet 200 MG PO (08:19)
[2024-09-21] MEDS: Amiodarone 200 MG Tablet PO (08:19)
[2024-09-21] MEDS: Smz/Tmp Ds Tablet 1 TABLET PO ×2 (08:19→16:26)
[2024-09-21] MEDS: Cholecalciferol (Vit D3) 125 MCG CAPSULE (5,000 UNITS) PO (08:20)
[2024-09-21] MEDS: APIXABAN 2.5 MG TABLET (WCH) PO ×2 (08:20→22:05)
[2024-09-21] MEDS: Ascorbic Acid 500 MG Tablet 2000 MG PO (08:20)
[2024-09-21] MEDS: buPROPion (XL) 150 MG TABLET.XL PO (08:21)
[2024-09-21] MEDS: Amox/Clavulanate 875 MG Tablet PO ×2 (08:23→16:26)
[2024-09-21] MEDS: dilTIAZem CD 120 MG Capsule PO ×2 (08:23→22:04)
[2024-09-21] MEDS: Hydrocortisone 2.5% Crm 1 APPLIC TOPICAL ×2 (08:24→22:05)
[2024-09-21] MEDS: Nystatin Powder 15gm Bottle 1 APPLIC TOPICAL ×2 (08:25→22:06)
[2024-09-21 09:47] VITALS: BP 96/40; PULSE 68
[2024-09-21] MEDS: Ferrous Sulfate 325 MG Tablet PO (11:23)
[2024-09-21] MEDS: Zinc Sulfate 50 mg zinc (220 mg) ORAL capsule PO (11:23)
--- NOTE | 2024-09-21 12:04 | PHA.CONS_ITS ---
Documented by User: Micki Elkins 09/21/24 13:41 TCU RX Drug Regimen Review Subjective/Objective Subjective/Objective Subjective: TCU Admission. 79 YOF presented to the ER with nausea, vomiting, diarrhea, transferred to [facility]. Hospitalized for malignant small bowel obstruction, complicated by umbilical hernia, hospital acquired pneumonia, urinary tract infection, acute kidney injury, metastatic ovarian cancer. Admitted to TCU with debility for strengthening and rehabilitation. Objective: Allergies morphine Adverse Reaction (Severe, Verified 09/04/24 18:07) Nausea/Vom/Diarrhea penicillin G Adverse Reaction (Unknown, Verified 09/04/24 18:07) Unknown Current Medications Generic Name Dose Route Start Last Admin Trade Name Freq PRN Reason Stop Dose Admin Acetaminophen 1,000 mg 09/20/24 20:07 Acetaminophen 500 Mg Tablet PO Q6H PRN PRN Pain Score 1-10 Amiodarone HCl 200 mg 09/21/24 10:00 09/21/24 08:19 Amiodarone 200 Mg Tablet PO 200 mg DAILY RYAN Administration Amoxicillin/Clavulanate Potassium 875 mg 09/20/24 18:45 09/21/24 08:23 Amox/Clavulanate 875 Mg Tablet PO 09/22/24 08:01 875 mg BIDCM RYAN Administration Apixaban 2.5 mg 09/20/24 22:00 09/21/24 08:20 Apixaban 2.5 Mg Tablet (Wch) PO 2.5 mg BID RYAN Administration Ascorbic Acid 2,000 mg 09/21/24 10:00 09/21/24 08:20 Ascorbic Acid 500 Mg Tablet PO 2,000 mg DAILY RYAN Administration Atorvastatin Calcium 10 mg 09/21/24 19:22 Atorvastatin Calcium 10 Mg Tablet PO SUMOWEFR [facility] Bupropion HCl 150 mg 09/21/24 10:00 09/21/24 08:21 Bupropion (Xl) 150 Mg Tablet.Xl PO 150 mg DAILY RYAN Administration Calcium Carbonate 500 mg 09/22/24 10:00 Calcium Carbonate 500 Mg Tablet PO DAILY RYAN Cholecalciferol 125 mcg 09/21/24 10:00 09/21/24 08:20 Cholecalciferol (Vit D3) 125 Mcg Capsule (5,000 Units) PO 125 mcg DAILY RYAN Administration Diltiazem HCl 120 mg 09/20/24 22:00 09/21/24 08:23 Diltiazem Cd 120 Mg Capsule PO 120 mg Q12 RYAN Administration Protocol Ferrous Sulfate 325 mg 09/21/24 12:00 09/21/24 11:23 Ferrous Sulfate 325 Mg Tablet PO 325 mg DAILY@1200 RYAN Administration Furosemide 40 mg 09/21/24 06:00 09/21/24 05:28 Furosemide 40 Mg Tablet PO 40 mg BIDLX RYAN Administration Protocol Hydrocortisone 1 applic 09/20/24 22:00 09/21/24 08:24 Hydrocortisone 2.5% Crm TOPICAL 1 applic BID RYAN Administration Protocol Ibuprofen 600 mg 09/21/24 06:00 09/21/24 11:26 Ibuprofen 600 Mg Tablet PO 600 mg Q6 RYAN Administration Metoclopramide HCl 5 mg 09/20/24 22:00 09/21/24 05:28 Metoclopramide 5 Mg Tablet PO 5 mg TID RYAN Administration Metoprolol Tartrate 50 mg 09/20/24 22:00 09/21/24 09:47 Metoprolol Tartrate 50 Mg Tablet PO Not Given BID [facility] Protocol Multi-Ingredient Cream 1 applic 09/20/24 19:13 Petrolatum 33% Tube TOPICAL BID PRN PRN DRY SKIN Protocol Nystatin 1 applic 09/20/24 22:00 09/21/24 08:25 Nystatin Powder 15gm Bottle TOPICAL 1 applic BID [facility] Administration Protocol Ondansetron HCl 4 mg 09/20/24 18:41 Ondansetron Odt 4 Mg Tablet PO Q8H PRN PRN Nausea Potassium Chloride 20 meq 09/20/24 22:00 09/21/24 08:19 Potassium Chloride Oral Tablet 20 Meq PO 20 meq BID RYAN Administration Senna/Docusate Sodium 1 tablet 09/20/24 22:00 09/21/24 11:22 Senna/Docusate Sodium 1 Tablet PO Not Given BID RYAN Trimethoprim/Sulfamethoxazole 1 tablet 09/20/24 20:00 09/21/24 08:19 Smz/Tmp Ds Tablet PO 09/23/24 08:01 1 tablet BIDCM [facility] Administration Tuberculin PPD 0.1 ml 09/28/24 10:00 Tuberculin,Purif.Prot.Deriv. 50 Tu/Ml Vial ID 09/28/24 10:01 X1 ONE Zinc Sulfate 50 mg 09/21/24 10:00 09/21/24 11:23 Zinc Sulfate 50 Mg Zinc (220 Mg) Oral Capsule PO 50 mg DAILY RYAN Administration Problem List Atrial fibrillation (Acute) Essential (primary) hypertension (Acute) Fatty liver (Acute) Iron deficiency anemia (Acute) Depression (Acute) Vitamin D deficiency (Acute) Hyperlipemia (Acute) Acute kidney injury (Acute) Urinary tract infection (Acute) Hospital-acquired pneumonia (Acute) Ovarian cancer (Acute) Umbilical hernia (Acute) Debility (Acute) Vital Signs Temp Pulse Resp BP Pulse Ox O2 Del Method 97.3 F L 68 18 96/40 L 98 Room Air 09/20/24 18:06 09/21/24 09:47 09/20/24 18:49 09/21/24 09:47 09/20/24 18:49 09/20/24 18:49 Oxygen Delivery Method Room Air Weight: 89.086 kg Body Mass Index (BMI) 30.7 Sodium 138 mmol/L (136-145) 09/21/24 05:07 Potassium 3.5 mmol/L (3.5-5.1) 09/21/24 05:07 Chloride 107 mmol/L (98-107) 09/21/24 05:07 Carbon Dioxide 23.0 mmol/L (21.0-32.0) 09/21/24 05:07 Anion Gap 8 (5-15) 09/21/24 05:07 BUN 11 mg/dL (7-18) 09/21/24 05:07 Creatinine 0.57 mg/dL (0.55-1.02) 09/21/24 05:07 Est GFR (MDRD) Af Amer 131 mL/min (>60) 09/21/24 05:07 Est GFR (MDRD) Non-Af 109 mL/min (>60) 09/21/24 05:07 BUN/Creatinine Ratio 19.4 RATIO (10-20) 09/21/24 05:07 Glucose 91 mg/dL (74-106) 09/21/24 05:07 Assessment/Plan: 1. Pain: acetaminophen 1000mg PO Q6H PRN pain 1-10 and ibuprofen 600mg PO Q6. Please continue to monitor for increased pain, S/S of bleeding, renal function and PRN usage (no PRN doses given). 2. Bowel: senna/docusate 1T PO BID. Please continue to monitor for constipation and diarrhea. Last documented bowel movement was 09/21. 3. Hospital acquired pneumonia/UTI: Augmentin 875 PO BIDCM thru 09/22/24 and Bactrim DS PO BIDCM thru 09/23/24. Please continue to monitor for S/S of infection, renal function, potassium (last 3.5mmol/L), diarrhea. 4. Atrial fibrillation: metoprolol tartrate 50mg PO BID, diltiazem CD 120mg PO Q12, amiodarone 200mg PO daily, apixaban 2.5mg PO BID. Please consider changing apixaban dose to 5mg as resident does not meet criteria for lower dose as SCr is <1.5 mg/dL and weight is >60kg. Please consider adding hold parameters to blood pressure medications as the last BP was 96/40. Thanks. Please continue to monitor BP, HR (last 68), sodium (last 138mmol/L), potassium (last 3.5mmol/L), S/S of bleeding and hemoglobin (last 10.5g/dL). 5. Edema: furosemide 40mg PO BIDLX. Please continue to monitor renal function, potassium, BP and edema. 6. Hyperlipidemia: atorvastatin 10mg PO SuMoWeFr. Please consider ordering lipid panel as the last lipid panel is from 2019. Thanks. Please continue to monitor LFTs (last 09/04/24) and muscle pain. 7. Iron deficiency anemia: ferrous sulfate 325mg PO daily and ascorbic acid 2000mg PO daily. Please continue to monitor hemoglobin (last 10.5g/dL), dark stools, constipation. 8. Nausea: metoclopramide 5mg PO TID and ondansetron 4mg PO Q8H PRN nausea. Please continue to monitor for S/S of nausea, PRN usage (n o PRN doses given), tardive dyskinesia (black box warning/BEERS). 9. Hypokalemia: potassium chloride 20mEq PO BID. Please continue to monitor potassium levels. 10. Indigestion: calcium carbonate 500mg PO daily. Please continue to monitor calcium levels (last 8.5mg/dL). 11. Vitamin D deficiency: cholecalciferol 125mcg PO daily. Please consider ordering a vitamin D level as the last level was from 2018. Thanks. 12. Skin irritation/Tinea Corporis: HC 2.5% cream topical bid, Eucerin topical bid prn and Nystatin powder topical bid. Please continue to monitor. Assessment/Plan for indications treated with psychotropic medications: 1. Depression: bupropion XL 150mg PO daily. Please see physician note regarding GDR. Please continue to monitor for suicidal ideation (black box warning), insomnia, dizziness and drowsiness. Medical chart and medication regimen reviewed. The following medication irregularities or issues were identified: 1. Metoprolol tartrate 50mg PO BID, diltiazem CD 120mg PO Q12, amiodarone 200mg PO daily, apixaban 2.5mg PO BID. Please consider changing apixaban dose to 5mg as resident does not meet criteria for lower dose as SCr is <1.5 mg/dL and weight is >60kg. Please consider adding hold parameters to blood pressure medications as the last BP was 96/40. Thanks. 2. Cholecalciferol 125mcg PO daily. Please consider ordering a vitamin D level as the last level was from 2018. Thanks. 3. Atorvastatin 10mg PO SuMoWeFr. Please consider ordering lipid panel as the last lipid panel is from 2019. Thanks. Documented by User: Dr. Kang Rich MD 09/21/24 13:07 TCU RX Drug Regimen Review Date Date of Note: 09/21/24 Provider Comments Provider responsibility Provider Comments to Recommendations by Pharmacy Agree
--- NOTE | 2024-09-21 12:05 | NURSING ---
Disc Sander Note; Activity Asset: Aris Angeles is independent in her choice of daily activities. She stated she is allergic to dogs so a no pets sign was placed on her door. She has a smartphone she uses, watches tv, enjoys the newspaper and [employer]. She welcomes visits from the shelf filler and will visit w/family and friends. Staff will encourages social activities, remind her of weekly activities and respect her right to say no.
[2024-09-21 15:45] VITALS: BP 100/49; PULSE 66; RESP 14; TEMP 36.8; O2SAT 97
--- NOTE | 2024-09-21 16:43 | CASEMGMT ---
Social Work SW met with patient to complete initial assessment. Pt known to this worker when was a previous patient. Introduced self and role. Verified contacts. Patient confirmed code status as full code. Educated to [facility] insurance with NRD 09/23 and continued stay is not guaranteed with each review. Pt's goal is to return home alone at mod I. SW will continue to follow and assist with DC planning. KAIA PryorW
[2024-09-21] MEDS: Tuberculin,Purif.prot.deriv. 50 TU/ML Vial 0.1 ML ID (17:57)
[2024-09-21 18:54] VITALS: PULSE 67; RESP 16; O2SAT 99
[2024-09-21 22:02] VITALS: BP 109/58; PULSE 69
[2024-09-21] MEDS: Atorvastatin Calcium 10 MG Tablet PO (22:04)
[2024-09-21 22:05] VITALS: BP 109/58; PULSE 69
[2024-09-21] MEDS: Metoprolol Tartrate 50 MG Tablet PO (22:05)
[2024-09-22] VITALS (8 sets, daily range): BP systolic 102–128; BP diastolic 52–58; PULSE 61–76; RESP 18; TEMP 36.7; O2SAT 97–99
[2024-09-22] MEDS: Ibuprofen 600 MG Tablet PO ×3 (00:36→11:31)
[2024-09-22] MEDS: Furosemide 40 MG Tablet PO ×2 (05:35→13:13)
[2024-09-22] MEDS: Metoclopramide 5 MG TABLET PO ×3 (05:35→21:45)
[2024-09-22] MEDS: Amox/Clavulanate 875 MG Tablet PO (08:22)
[2024-09-22] MEDS: Calcium Carbonate 500 MG Tablet PO (08:25)
[2024-09-22] MEDS: Nystatin Powder 15gm Bottle 1 APPLIC TOPICAL ×2 (08:26→21:39)
[2024-09-22] MEDS: Ascorbic Acid 500 MG Tablet 2000 MG PO (08:26)
[2024-09-22] MEDS: APIXABAN 2.5 MG TABLET (WCH) PO (08:27)
[2024-09-22] MEDS: Zinc Sulfate 50 mg zinc (220 mg) ORAL capsule PO (08:27)
[2024-09-22] MEDS: Potassium Chloride Oral Tablet 20 MEQ PO ×2 (08:27→21:43)
[2024-09-22] MEDS: Smz/Tmp Ds Tablet 1 TABLET PO ×2 (08:29→17:27)
[2024-09-22] MEDS: dilTIAZem CD 120 MG Capsule PO ×2 (08:32→21:42)
[2024-09-22] MEDS: buPROPion (XL) 150 MG TABLET.XL PO (08:33)
[2024-09-22] MEDS: Cholecalciferol (Vit D3) 125 MCG CAPSULE (5,000 UNITS) PO (08:33)
[2024-09-22] MEDS: Amiodarone 200 MG Tablet PO (08:33)
[2024-09-22] MEDS: Hydrocortisone 2.5% Crm 1 APPLIC TOPICAL ×2 (08:34→21:43)
[2024-09-22] MEDS: Menthol/Lanolin/Calamine/Znox 113 GM Tube 1 APPLIC TOPICAL ×2 (08:43→21:39)
[2024-09-22] MEDS: Ferrous Sulfate 325 MG Tablet PO (11:31)
[2024-09-22] MEDS: APIXABAN 5 MG TABLET PO (21:42)
[2024-09-22] MEDS: Metoprolol Tartrate 50 MG Tablet PO (21:44)
[2024-09-23 05:46] VITALS: BP 117/59; PULSE 63
[2024-09-23] MEDS: Furosemide 40 MG Tablet PO ×2 (05:48→14:21)
[2024-09-23] MEDS: Metoclopramide 5 MG TABLET PO ×3 (05:48→20:21)
[2024-09-23 06:27] LABS: Cholesterol 109 mg/dL (200); High Density Lipoprotein 44 mg/dL; Triglycerides 103 mg/dL; Very Low Density Lipoprotein 21 mg/dL (5-40)
[2024-09-23 08:12] LABS: Vitamin D,25 Hydroxy 48.6 ng/mL
[2024-09-23] MEDS: Smz/Tmp Ds Tablet 1 TABLET PO (08:27)
[2024-09-23] MEDS: Menthol/Lanolin/Calamine/Znox 113 GM Tube 1 APPLIC TOPICAL ×2 (08:27→20:32)
[2024-09-23] MEDS: APIXABAN 5 MG TABLET PO ×2 (08:28→20:21)
[2024-09-23] MEDS: Potassium Chloride Oral Tablet 20 MEQ PO ×2 (08:28→20:23)
[2024-09-23] MEDS: Nystatin Powder 15gm Bottle 1 APPLIC TOPICAL ×2 (08:28→20:31)
[2024-09-23] MEDS: Calcium Carbonate 500 MG Tablet PO (08:29)
[2024-09-23] MEDS: Cholecalciferol (Vit D3) 125 MCG CAPSULE (5,000 UNITS) PO (08:30)
[2024-09-23] MEDS: buPROPion (XL) 150 MG TABLET.XL PO (08:30)
[2024-09-23] MEDS: Ascorbic Acid 500 MG Tablet 2000 MG PO (08:30)
[2024-09-23] MEDS: Zinc Sulfate 50 mg zinc (220 mg) ORAL capsule PO (08:31)
[2024-09-23 08:34] VITALS: BP 133/53; PULSE 73
[2024-09-23] MEDS: dilTIAZem CD 120 MG Capsule PO ×2 (08:34→20:21)
[2024-09-23] MEDS: Amiodarone 200 MG Tablet PO (08:34)
[2024-09-23] MEDS: Metoprolol Tartrate 50 MG Tablet PO ×2 (08:34→20:21)
[2024-09-23 08:42] VITALS: BP 133/53; PULSE 73; RESP 18; O2SAT 96
[2024-09-23] MEDS: Ferrous Sulfate 325 MG Tablet PO (11:49)
[2024-09-23] MEDS: Hydrocortisone 2.5% Crm 1 APPLIC TOPICAL ×2 (11:49→20:31)
[2024-09-23 16:00] VITALS: TEMP 36.8
[2024-09-23 20:21] VITALS: BP 112/52; PULSE 64
[2024-09-23] MEDS: Atorvastatin Calcium 10 MG Tablet PO (20:23)
[2024-09-23 20:30] VITALS: PULSE 64
[2024-09-24] MEDS: Acetaminophen 500 MG Tablet 1000 MG PO ×2 (01:04→22:35)
[2024-09-24] MEDS: Metoclopramide 5 MG TABLET PO ×3 (05:50→22:10)
[2024-09-24] MEDS: Furosemide 40 MG Tablet PO ×2 (05:50→13:40)
[2024-09-24 08:30] VITALS: BP 114/61; PULSE 64; RESP 16; TEMP 36.3; O2SAT 100
[2024-09-24] MEDS: Calcium Carbonate 500 MG Tablet PO (08:39)
[2024-09-24] MEDS: APIXABAN 5 MG TABLET PO ×2 (08:39→22:09)
[2024-09-24] MEDS: Cholecalciferol (Vit D3) 125 MCG CAPSULE (5,000 UNITS) PO (08:39)
[2024-09-24] MEDS: Amiodarone 200 MG Tablet PO (08:39)
[2024-09-24] MEDS: Potassium Chloride Oral Tablet 20 MEQ PO ×2 (08:39→22:08)
[2024-09-24] MEDS: Ascorbic Acid 500 MG Tablet 2000 MG PO (08:39)
[2024-09-24] MEDS: buPROPion (XL) 150 MG TABLET.XL PO (08:39)
[2024-09-24 08:40] VITALS: BP 114/61; PULSE 64
[2024-09-24] MEDS: Zinc Sulfate 50 mg zinc (220 mg) ORAL capsule PO (08:40)
[2024-09-24] MEDS: Metoprolol Tartrate 50 MG Tablet PO ×2 (08:40→22:06)
[2024-09-24] MEDS: dilTIAZem CD 120 MG Capsule PO ×2 (08:40→22:10)
[2024-09-24] MEDS: Menthol/Lanolin/Calamine/Znox 113 GM Tube 1 APPLIC TOPICAL ×2 (08:40→22:05)
[2024-09-24] MEDS: Hydrocortisone 2.5% Crm 1 APPLIC TOPICAL ×2 (08:40→22:04)
[2024-09-24] MEDS: Nystatin Powder 15gm Bottle 1 APPLIC TOPICAL ×2 (08:41→22:05)
[2024-09-24] MEDS: Ferrous Sulfate 325 MG Tablet PO (12:08)
[2024-09-24 13:30] VITALS: PULSE 64; O2SAT 100
[2024-09-24 22:06] VITALS: BP 107/56; PULSE 73
[2024-09-25 06:30] VITALS: BP 115/59; PULSE 63
[2024-09-25] MEDS: Furosemide 40 MG Tablet PO ×2 (06:30→15:00)
[2024-09-25] MEDS: Metoclopramide 5 MG TABLET PO ×3 (06:30→21:46)
[2024-09-25 11:18] VITALS: BP 111/49; PULSE 63; RESP 14; TEMP 36.8; O2SAT 99
[2024-09-25] MEDS: dilTIAZem CD 120 MG Capsule PO ×2 (11:19→21:45)
[2024-09-25] MEDS: Menthol/Lanolin/Calamine/Znox 113 GM Tube 1 APPLIC TOPICAL ×2 (11:19→21:43)
[2024-09-25] MEDS: Potassium Chloride Oral Tablet 20 MEQ PO ×2 (11:20→21:46)
[2024-09-25] MEDS: Amiodarone 200 MG Tablet PO (11:20)
[2024-09-25] MEDS: Hydrocortisone 2.5% Crm 1 APPLIC TOPICAL ×2 (11:20→21:47)
[2024-09-25] MEDS: APIXABAN 5 MG TABLET PO ×2 (11:20→21:42)
[2024-09-25 11:21] VITALS: PULSE 63
[2024-09-25] MEDS: Nystatin Powder 15gm Bottle 1 APPLIC TOPICAL ×2 (11:21→21:43)
[2024-09-25] MEDS: Metoprolol Tartrate 50 MG Tablet PO ×2 (11:21→21:46)
[2024-09-25] MEDS: Calcium Carbonate 500 MG Tablet PO (11:21)
[2024-09-25] MEDS: Ascorbic Acid 500 MG Tablet 2000 MG PO (11:21)
[2024-09-25] MEDS: Cholecalciferol (Vit D3) 125 MCG CAPSULE (5,000 UNITS) PO (11:22)
[2024-09-25] MEDS: Ferrous Sulfate 325 MG Tablet PO (11:23)
[2024-09-25] MEDS: buPROPion (XL) 150 MG TABLET.XL PO (11:23)
[2024-09-25] MEDS: Zinc Sulfate 50 mg zinc (220 mg) ORAL capsule PO (11:23)
[2024-09-25 14:58] VITALS: BP 115/57
[2024-09-25 21:40] VITALS: BP 125/59; PULSE 74; O2SAT 98
[2024-09-25] MEDS: Atorvastatin Calcium 10 MG Tablet PO (21:43)
[2024-09-25 21:46] VITALS: BP 125/59; PULSE 74
[2024-09-26] MEDS: Acetaminophen 500 MG Tablet 1000 MG PO ×2 (01:21→20:41)
[2024-09-26 06:18] VITALS: BP 145/61; PULSE 64
[2024-09-26] MEDS: Furosemide 40 MG Tablet PO ×2 (06:20→14:20)
[2024-09-26] MEDS: Metoclopramide 5 MG TABLET PO ×3 (06:20→20:39)
[2024-09-26] MEDS: dilTIAZem CD 120 MG Capsule PO ×2 (08:20→20:34)
[2024-09-26 08:21] VITALS: BP 115/58; PULSE 73
[2024-09-26] MEDS: Calcium Carbonate 500 MG Tablet PO (08:21)
[2024-09-26] MEDS: Amiodarone 200 MG Tablet PO (08:21)
[2024-09-26] MEDS: APIXABAN 5 MG TABLET PO ×2 (08:21→20:35)
[2024-09-26] MEDS: Cholecalciferol (Vit D3) 125 MCG CAPSULE (5,000 UNITS) PO (08:21)
[2024-09-26] MEDS: Metoprolol Tartrate 50 MG Tablet PO ×2 (08:21→20:36)
[2024-09-26] MEDS: Potassium Chloride Oral Tablet 20 MEQ PO ×2 (08:21→20:35)
[2024-09-26] MEDS: Ascorbic Acid 500 MG Tablet 2000 MG PO (08:21)
[2024-09-26] MEDS: Nystatin Powder 15gm Bottle 1 APPLIC TOPICAL ×2 (08:22→20:36)
[2024-09-26] MEDS: Menthol/Lanolin/Calamine/Znox 113 GM Tube 1 APPLIC TOPICAL ×2 (08:22→20:31)
[2024-09-26] MEDS: Zinc Sulfate 50 mg zinc (220 mg) ORAL capsule PO (08:22)
[2024-09-26] MEDS: buPROPion (XL) 150 MG TABLET.XL PO (08:22)
[2024-09-26] MEDS: Hydrocortisone 2.5% Crm 1 APPLIC TOPICAL ×2 (08:22→20:35)
[2024-09-26 09:00] VITALS: BP 115/58; PULSE 73; RESP 16; TEMP 36.7; O2SAT 98
[2024-09-26] MEDS: Ferrous Sulfate 325 MG Tablet PO (11:55)
[2024-09-26 14:20] VITALS: PULSE 73; RESP 16; O2SAT 98
--- NOTE | 2024-09-26 16:33 | CASEMGMT ---
Social Work SW completed BIMS () and PHQ-2 () for MDS assessment. Hayde Gore MSW COVERAGE SPECIALIST RN
[2024-09-26 20:29] VITALS: BP 133/64; PULSE 73
[2024-09-26] MEDS: Atorvastatin Calcium 10 MG Tablet PO (20:31)
[2024-09-26 20:36] VITALS: BP 133/64; PULSE 73
[2024-09-27] VITALS (8 sets, daily range): BP systolic 108–130; BP diastolic 45–72; PULSE 64–94; RESP 16–18; TEMP 36.7; O2SAT 96; BMI 29.5
[2024-09-27] MEDS: Metoclopramide 5 MG TABLET PO ×3 (05:31→21:41)
[2024-09-27] MEDS: Furosemide 40 MG Tablet PO ×2 (05:31→13:31)
[2024-09-27] MEDS: Menthol/Lanolin/Calamine/Znox 113 GM Tube 1 APPLIC TOPICAL ×2 (09:24→21:45)
[2024-09-27] MEDS: Hydrocortisone 2.5% Crm 1 APPLIC TOPICAL ×2 (09:25→21:42)
[2024-09-27] MEDS: Nystatin Powder 15gm Bottle 1 APPLIC TOPICAL ×2 (09:27→21:46)
[2024-09-27] MEDS: Potassium Chloride Oral Tablet 20 MEQ PO ×2 (09:29→21:41)
[2024-09-27] MEDS: APIXABAN 5 MG TABLET PO ×2 (09:30→21:42)
[2024-09-27] MEDS: dilTIAZem CD 120 MG Capsule PO ×2 (09:30→21:42)
[2024-09-27] MEDS: Metoprolol Tartrate 50 MG Tablet PO ×2 (09:31→21:41)
[2024-09-27] MEDS: Ascorbic Acid 500 MG Tablet 2000 MG PO (09:31)
[2024-09-27] MEDS: Calcium Carbonate 500 MG Tablet PO (09:31)
[2024-09-27] MEDS: Amiodarone 200 MG Tablet PO (09:31)
[2024-09-27] MEDS: Zinc Sulfate 50 mg zinc (220 mg) ORAL capsule PO (09:32)
[2024-09-27] MEDS: Cholecalciferol (Vit D3) 125 MCG CAPSULE (5,000 UNITS) PO (09:32)
[2024-09-27] MEDS: buPROPion (XL) 150 MG TABLET.XL PO (09:32)
[2024-09-27] MEDS: Ferrous Sulfate 325 MG Tablet PO (11:27)
--- NOTE | 2024-09-27 15:14 | NURSING ---
A0X3 PT WANTED STAFF TO DESTROY HER OLD CREDIT CARD.STATED TO PT WE CAN NOT DO THAT SO PT CUT UP CARD AND STAFF PUT IN SHEDDER PER PT REQUEST. RN AWARE
--- NOTE | 2024-09-27 18:11 | RAD_ITS ---
PROCEDURE: ABDOMEN SINGLE VIEW REASON FOR EXAM: Loose stools. TECHNIQUE: AP views of the abdomen are obtained. COMPARISON: CT abdomen/pelvis from 10/26/2023. FINDINGS: Nonobstructive bowel gas pattern is identified. No unusual calcifications or organomegaly seen. No significant retained stool is seen within the colon. No definite free air is identified. Degenerative changes are identified. RAD/Abdomen Single View IMPRESSION: Nonobstructive bowel gas pattern. Reading Location: [facility]
--- NOTE | 2024-09-27 20:21 | NURSING ---
Dr. Rich notified via secure backline text of KUB impression, no new orders per Dr. Rich
[2024-09-28 05:48] LABS: Absolute Lymphocyte Count 1.89 X10^3/uL (0.83-4.51); Absolute Neutrophil Count 5.2 X10^3/uL (2.0-7.7); Basophil# 0.04 X10^3/uL; Basophil% 0.5 % (0-1); Eosinophil# 0.18 X10^3/uL; Eosinophils% 2.2 % (0-5); Hematocrit 30.9 % (37-47); Hemoglobin 9.9 g/dL (12.0-15.0); Lymphocyte # 1.89 X10^3/ul (0.83-4.51); Lymphocyte % 23.3 % (19-41); Mean Corpuscular Hgb 30.1 pg (27.0-32.0); Mean Corpuscular Volume 93.9 fL (81-99); Mean Platelet Vol. 8.5 fl (6.2-12.0); Monocyte# 0.75 X10^3/uL; Monocyte% 9.3 % (0-10); NRBC Flagged by Analyzer 0 % (0-5); Neutrophil # 5.22 X10^3/uL (2.7-7.7); Neutrophil % 64.5 % (47-70); Platelet Count 351 K/mm3 (150-450); RBC Distribution Width CV 14.5 % (11.6-14.6); RBC Distribution Width SD 49.6 fl (35.1-43.9); Red Blood Count 3.29 M/mm3 (4.2-5.4); White Blood Count 8.1 K/mm3 (4.4-11.0)
[2024-09-28 06:00] VITALS: BP 149/70; PULSE 66; RESP 18
[2024-09-28 06:14] LABS: Anion Gap 8 (5-15); BUN 13 mg/dL (7-18); Calcium,Total 8.7 mg/dL (8.5-10.1); Chloride 103 mmol/L (98-107); Creatinine, Serum 0.59 mg/dL (0.55-1.02); EST Glomerular Filtration Rate 104 mL/min (>60); Est Glom Filt Rate - Afr Amer 125 mL/min (>60); Estimated Creatinine Clearance 61.96 ml/min; Glucose 90 mg/dL (74-106); Potassium 3.6 mmol/L (3.5-5.1); Sodium Level 138 mmol/L (136-145)
[2024-09-28] MEDS: Furosemide 40 MG Tablet PO ×2 (06:33→13:36)
[2024-09-28] MEDS: Metoclopramide 5 MG TABLET PO ×3 (06:33→21:40)
[2024-09-28] MEDS: Nystatin Powder 15gm Bottle 1 APPLIC TOPICAL ×2 (08:20→21:37)
[2024-09-28] MEDS: Menthol/Lanolin/Calamine/Znox 113 GM Tube 1 APPLIC TOPICAL ×2 (08:20→21:36)
[2024-09-28] MEDS: APIXABAN 5 MG TABLET PO ×2 (08:22→21:39)
[2024-09-28] MEDS: Potassium Chloride Oral Tablet 20 MEQ PO ×2 (08:22→21:39)
[2024-09-28] MEDS: Amiodarone 200 MG Tablet PO (08:22)
[2024-09-28] MEDS: Cholecalciferol (Vit D3) 125 MCG CAPSULE (5,000 UNITS) PO (08:22)
[2024-09-28 08:23] VITALS: BP 131/59; PULSE 72
[2024-09-28] MEDS: Calcium Carbonate 500 MG Tablet PO (08:23)
[2024-09-28] MEDS: Metoprolol Tartrate 50 MG Tablet PO ×2 (08:23→21:38)
[2024-09-28] MEDS: buPROPion (XL) 150 MG TABLET.XL PO (08:24)
[2024-09-28] MEDS: Ascorbic Acid 500 MG Tablet 2000 MG PO (08:24)
[2024-09-28] MEDS: Zinc Sulfate 50 mg zinc (220 mg) ORAL capsule PO (08:25)
[2024-09-28] MEDS: Hydrocortisone 2.5% Crm 1 APPLIC TOPICAL ×2 (08:27→21:40)
[2024-09-28] MEDS: dilTIAZem CD 120 MG Capsule PO ×2 (08:28→21:39)
--- NOTE | 2024-09-28 08:34 | NURSING ---
Customer Liaison Note; MDS for 09/27/2024 Complete
[2024-09-28 08:35] VITALS: BP 131/59; PULSE 72; RESP 18; O2SAT 96
--- NOTE | 2024-09-28 11:15 | CASEMGMT ---
Social Work IDT met with patient at [facility] and dtr via conference call for care plan meeting. Discussed patient's progress in PT/OT/SN. Educated to [facility] insurance with NRD 09/30 and continued stay is not guaranteed with each review. Provided pt with written communication on insurance process and copay coverage during stay. Pt is progressing well and this worker cautioned insurance may issue DC date at next review. SW inquired about readiness to DC. Pt requesting to focus more on higher level functioning OT tasks. Therapy noted. SW offered skilled C PT/OT/SN or OP PT at DC. Pt to consider options. Dtr inquired about resources for medical alert and home delivered meals for pt. Pt agreed. SW provided resources. SW will continue to follow for DC planning. KAIA PryorW
[2024-09-28] MEDS: Tuberculin,Purif.prot.deriv. 50 TU/ML Vial 0.1 ML ID (11:42)
[2024-09-28] MEDS: Ferrous Sulfate 325 MG Tablet PO (11:42)
[2024-09-28 13:40] VITALS: BP 110/51; PULSE 72
[2024-09-28 13:43] VITALS: TEMP 36.6
[2024-09-28] MEDS: Atorvastatin Calcium 10 MG Tablet PO (18:50)
[2024-09-28 21:38] VITALS: BP 118/53; PULSE 68
[2024-09-29 06:21] VITALS: BP 112/50; PULSE 63
[2024-09-29] MEDS: Furosemide 40 MG Tablet PO ×2 (06:21→13:39)
[2024-09-29] MEDS: Metoclopramide 5 MG TABLET PO ×3 (06:22→20:59)
[2024-09-29 07:20] LABS: Hemoglobin 9.5 g/dL (12.0-15.0)
[2024-09-29] MEDS: Menthol/Lanolin/Calamine/Znox 113 GM Tube 1 APPLIC TOPICAL ×2 (10:06→20:59)
[2024-09-29] MEDS: Nystatin Powder 15gm Bottle 1 APPLIC TOPICAL ×2 (10:06→20:59)
[2024-09-29] MEDS: Hydrocortisone 2.5% Crm 1 APPLIC TOPICAL ×2 (10:08→20:59)
[2024-09-29] MEDS: Amiodarone 200 MG Tablet PO (10:10)
[2024-09-29] MEDS: APIXABAN 5 MG TABLET PO ×2 (10:10→20:59)
[2024-09-29] MEDS: dilTIAZem CD 120 MG Capsule PO ×2 (10:10→20:59)
[2024-09-29 10:11] VITALS: BP 130/61; PULSE 77
[2024-09-29] MEDS: Ascorbic Acid 500 MG Tablet 2000 MG PO (10:11)
[2024-09-29] MEDS: Potassium Chloride Oral Tablet 20 MEQ PO ×2 (10:11→20:58)
[2024-09-29] MEDS: Calcium Carbonate 500 MG Tablet PO (10:11)
[2024-09-29] MEDS: Metoprolol Tartrate 50 MG Tablet PO ×2 (10:11→20:58)
[2024-09-29] MEDS: buPROPion (XL) 150 MG TABLET.XL PO (10:13)
[2024-09-29] MEDS: Cholecalciferol (Vit D3) 125 MCG CAPSULE (5,000 UNITS) PO (10:13)
[2024-09-29] MEDS: Zinc Sulfate 50 mg zinc (220 mg) ORAL capsule PO (10:13)
[2024-09-29 10:20] VITALS: BP 130/61; PULSE 77; RESP 16; O2SAT 95
[2024-09-29] MEDS: Ferrous Sulfate 325 MG Tablet PO (11:36)
[2024-09-29 13:48] VITALS: BP 116/57; PULSE 75
[2024-09-29 16:00] VITALS: TEMP 36.2
[2024-09-29 20:58] VITALS: BP 115/59; PULSE 68
[2024-09-30] MEDS: Furosemide 40 MG Tablet PO ×2 (05:35→13:27)
[2024-09-30] MEDS: Metoclopramide 5 MG TABLET PO ×3 (05:35→21:16)
[2024-09-30 08:00] VITALS: BP 105/56; PULSE 70; RESP 16; TEMP 36.3; O2SAT 99
[2024-09-30] MEDS: APIXABAN 5 MG TABLET PO ×2 (08:35→21:16)
[2024-09-30] MEDS: Cholecalciferol (Vit D3) 125 MCG CAPSULE (5,000 UNITS) PO (08:35)
[2024-09-30] MEDS: Calcium Carbonate 500 MG Tablet PO (08:35)
[2024-09-30] MEDS: buPROPion (XL) 150 MG TABLET.XL PO (08:35)
[2024-09-30] MEDS: Potassium Chloride Oral Tablet 20 MEQ PO ×2 (08:35→21:16)
[2024-09-30] MEDS: dilTIAZem CD 120 MG Capsule PO ×2 (08:35→21:16)
[2024-09-30] MEDS: Ascorbic Acid 500 MG Tablet 2000 MG PO (08:35)
[2024-09-30] MEDS: Amiodarone 200 MG Tablet PO (08:35)
[2024-09-30] MEDS: Zinc Sulfate 50 mg zinc (220 mg) ORAL capsule PO (08:35)
[2024-09-30 08:36] VITALS: BP 105/56; PULSE 70
[2024-09-30] MEDS: Hydrocortisone 2.5% Crm 1 APPLIC TOPICAL ×2 (08:36→21:16)
[2024-09-30] MEDS: Metoprolol Tartrate 50 MG Tablet PO ×2 (08:36→21:16)
[2024-09-30] MEDS: Menthol/Lanolin/Calamine/Znox 113 GM Tube 1 APPLIC TOPICAL ×2 (08:39→21:18)
[2024-09-30] MEDS: Nystatin Powder 15gm Bottle 1 APPLIC TOPICAL ×2 (08:39→21:18)
--- NOTE | 2024-09-30 09:34 | NURSING ---
Stool sample collected at this time for occult stool.
--- NOTE | 2024-09-30 10:21 | NURSING ---
Occult stool results received and positive. Dr. Rich notified of positive results. Patient notified of positive results.
[2024-09-30] MEDS: Ferrous Sulfate 325 MG Tablet PO (12:27)
--- NOTE | 2024-09-30 12:53 | CASEMGMT ---
Social Work Insurance issued LCD 10/02, DC 10/03 SW spoke with pt at bedside. AIRLINE FLIGHT ATTENDANT present. Discussed DC needs. Pt prefers [facility] - specifically [facility] at [place]. Pt requesting a rollator. SW educated to automatic $60 copay, in addition to any copays from insurance. Pt agreeable to cover cost. Dtr can transport at [place] after work. No other needs noted. - RICHIE phoned referral to [facility] for PT/OT/SN. Referred to [facility] - [facility] can accept, but requesting addition of SW d/t dx of ovarian cancer. Order updated. Plan: DC home alone 10/03, [facility] PT/OT/SN/RICHIE, rollator Hayde Gore COMMERCIAL LOAN MANAGER STEAM TRAP WORKER
--- NOTE | 2024-09-30 13:06 | NURSING ---
Dr. Rich aware of positive occult stool results- new order received 1) Consult for GI with Dr. Iyer. Dr. Iyer notified of consult order.
--- NOTE | 2024-09-30 13:51 | DS.PCM_ITS ---
Providers Date of Admission: 09/20/24 Primary Care Physician: Dr. Gini Ojeda DO Consultations 09/30/24 10:31 Consult: Gastroenterology Routine Consulting Provider: [facility] Reason for Consult: Positive Occult Stool EMERGENT Consult: No MD Notified: Yes Date Notified: 09/30/24 Time Notified: 11:00 Method of Notification: Text Reason For Visit: SHORTNESS OF BREATH AND HCAP Diagnosis Discharge Diagnosis (1) Debility: Status: Acute Code(s): R53.81 - Other malaise (2) Small bowel obstruction: Status: Inactive Code(s): K56.609 - Unspecified intestinal obstruction, unspecified as to partial versus complete obstruction (3) Umbilical hernia: Status: Acute Code(s): K42.9 - Umbilical hernia without obstruction or gangrene (4) Ovarian cancer: Status: Acute Code(s): C56.9 - Malignant neoplasm of unspecified ovary (5) Hospital-acquired pneumonia: Status: Acute Code(s): J18.9 - Pneumonia, unspecified organism; Y95 - Nosocomial condition (6) Urinary tract infection: Status: Acute Code(s): N39.0 - Urinary tract infection, site not specified (7) Acute kidney injury: Status: Acute Code(s): N17.9 - Acute kidney failure, unspecified (8) Hyperlipemia: Status: Acute Code(s): E78.5 - Hyperlipidemia, unspecified (9) Vitamin D deficiency: Status: Acute Code(s): E55.9 - Vitamin D deficiency, unspecified (10) Hypokalemia: Status: Resolved Code(s): E87.6 - Hypokalemia (11) Depression: Status: Acute Code(s): F32.A - Depression, unspecified (12) Iron deficiency anemia: Status: Acute Code(s): D50.9 - Iron deficiency anemia, unspecified (13) Fatty liver: Status: Acute Code(s): K76.0 - Fatty (change of) liver, not elsewhere classified (14) Essential (primary) hypertension: Status: Acute Code(s): I10 - Essential (primary) hypertension (15) Atrial fibrillation: Status: Acute Code(s): I48.91 - Unspecified atrial fibrillation Plan 79 year old female with below past medical history hospitalized for malignant small bowel obstruction, complicated by umbilical hernia, hospital acquired pneumonia, urinary tract infection, acute kidney injury, metastatic ovarian cancer, admitted to TCU with debility, here for rehabilitation, strengthening, prior to discharge home. * Debility - PT/OT. * Pain - Tylenol 1000mg q6 prn pain (1-5), Ibuprofen 600mg q6 prn pain (6-10) * Bowel - senna/colace 1 tablet bid. * Adult immunization - Administer pneumonia vaccine, covid vaccine, flu vaccine as appropriate. * DVT prophylaxis - on Eliquis. * Atrial fibrillation - Metoprolol 50mg bid, Diltiazem cd 120mg q12, Amiodarone 200mg daily, Eliquis 2.5mg bid. * Hospital acquired pneumonia - Augmentin 875mg bidcm thru 09/22/2024. * Urinary tract infection - Bactrim DS 1 tablet bidcm thru 09/23/2024. * Iron deficiency anemia - Ferrous sulfate 325mg daily, Vitamin C 2000mg daily. * Hyperlipidemia - Atorvastatin 10mg SuMoWeFr. 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 * Indigestion - TUMS 200mg daily. * Vitamin D deficiency - D3 125mcg daily. * Edema - Furosemide 40mg bidlx. * Skin irritation - HC 2.5% cream topical bid, Eucerin topical bid prn. * Tinea Corporis - Nystatin powder topical bid. * Nausea - Reglan 5mg tid, Zofran odt 4mg q8 prn. * Hypokalemia - KCL 20meq bid. Medications at Discharge Home Medications calcium carbonate (Tums) 200 mg PO DAILY supplement 10/09/17 rosuvastatin 5 mg tablet (Crestor) 5 mg PO SUMOWEFR CHOLESTEROL 10/09/17 coenzyme Q10 100 mg capsule 100 mg PO DAILY Supplement 10/23/20 cholecalciferol (vitamin D3) 50 mcg (2,000 unit) capsule 7,000 unit PO DAILY supplement 03/16/23 ascorbic acid (vitamin C) 1,000 mg tablet (C-1000) 2 g PO DAILY Supplement 09/23/23 zinc 50 mg capsule 50 mg PO DAILY Supplement 09/23/23 bupropion HCl 150 mg 24 hr tablet, extended release 150 mg PO DAILY Mood 10/25/23 ferrous sulfate 325 mg (65 mg iron) tablet (FeroSul) 325 mg PO DAILY Supplement 10/25/23 trametinib 10 mg PO DAILY 10/25/23 folic acid 1 mg tablet 1 mg PO DAILY #90 tabs 10/29/23 sulfasalazine 500 mg tablet,delayed release 1 g (2 x 500 mg) PO DAILY #60 tabs 10/29/23 diltiazem HCl 120 mg capsule,extended release 24 hr 120 mg PO Q12H Heart #180 caps 05/13/24 betamethasone, augmented 0.05 % topical cream applic topical BID PRN PRN skin irritation 06/28/24 ondansetron 4 mg disintegrating tablet 4 mg PO Q8H PRN PRN Nausea #10 tabs 06/28/24 metoprolol tartrate 50 mg tablet 50 mg PO BID BP #180 tabs 08/04/24 amiodarone 200 mg tablet 200 mg PO DAILY Heart Rhythm 09/20/24 acetaminophen 500 mg tablet 1,000 mg (2 x 500 mg) PO Q6H PRN PRN Pain Score 1-10 #0 tabs 09/30/24 apixaban 5 mg tablet (Eliquis) 5 mg PO BID 30 days #60 tabs 09/30/24 furosemide 40 mg tablet 40 mg PO BIDLX 30 days #60 tabs 09/30/24 hydrocortisone 2.5 % topical cream 1 applic topical BID 30 days #45 grams 09/30/24 metoclopramide HCl 5 mg tablet 5 mg PO TID 30 days #90 tabs 09/30/24 potassium chloride 20 mEq tablet,extended release(part/cryst) 20 meq PO BID 30 days #60 tabs 09/30/24 Hospital Course Operations None Procedures None Summary of Care Provided Minutes Spent on Discharge: 35 Hospital Course: 79 year old female with below past medical history hospitalized for malignant small bowel obstruction, complicated by umbilical hernia, hospital acquired pneumonia, urinary tract infection, acute kidney injury, metastatic ovarian cancer, admitted to TCU with debility, here for rehabilitation, strengthening, prior to discharge home. Discharge home alone 10/03/2024, [facility] PT/OT/SN/SW, Rollator. Rollator: Patient is unsafe with a cane and requires frequent rest breaks that can be resolved with use of a rollator for ambulation in the home and the community. Physical Exam Const alert General Appearance: cooperative HEENT normocephalic Eyes PERRL and EOMs intact bilaterally Neck supple, no JVD and no carotid bruits Resp normal respiratory effort, normal air movement and clear to auscultation bilaterally Cardio regular rate and regular rhythm GI normal to inspection, nondistended, normoactive bowel sounds, non-tender and non-distended Extremity normal capillary refill General Extremity: Negative for edema Skin no rashes or lesions noted General Skin Exam: no breakdown Psych affect normal Appearance: appropriate Weight / BMI Weight Weight: 85.502 kg Body Mass Index (BMI) 29.5 ABG / Lab / Microbiology Data 09/29/24 05:03 09/28/24 05:10 Microbiology: Microbiology 09/30/24 09:30 Stool Stool Occult Blood (JC) - Final Occult Blood Positive D/C Instructions Discharge Diet: No restrictions Discharge Activity: Return to Normal Activity, May Shower and Use Walker May resume sexual activity in: No Restrictions Weight Bearing Status: Weight bearing as tolerated Call your doctor if you observe: Fever of 101 or Higher, Inability to urinate, Inability to have a bowel movement, Shortness of breath, Dizziness, Fainting spells, Swelling in the ankles, Chest pain and Uncontrolled pain DC O2, CPAP, BIPAP Needs Home O2 Discharge instructions: No Additional Instructions: Discharge home alone 10/03/2024, [facility] PT/OT/SN/SW, Rollator. Rollator: Patient is unsafe with a cane and requires frequent rest breaks that can be resolved with use of a rollator for ambulation in the home and the community. Please Follow Up With: [facility] Pharmacist Meaningful Use Info Meaningful Use Meaningful Use Diagnoses (Choose all that apply): None applicable Ischemic Stroke Statin Dosing Therapy Reference: STATIN DOSE THERAPY REFERENCE: * Patients > 75 years receive moderate or high dose statin therapy. * Patients 75 years or YOUNGER should receive HIGH intensity statin dose unless contraindicated. You will be required to document reason for non-treatment if statin daily dose does not meet guidelines. HIGH DOSE STATIN THERAPY DAILY Atorvastatin > than or = to 40 mg Rosuvastatin > than or = to 20 mg Amlodipine + Atorvastatin > than or = to 2.5/40 mg Ezetimibe + Simvastatin 10/80 mg Simvastatin 80mg Discharge Plan Admission Admit Date/Time: 09/20/24 17:24 Primary Reason for Your Visit: Debility. Attending Provider: Kang Rich Chi Primary Care Provider: Gini Ojeda Instructions Additional Instructions / Restrictions: Discharge home alone 10/03/2024, [facility] PT/OT/SN/SW, Rollator. Rollator: Patient is unsafe with a cane and requires frequent rest breaks that can be resolved with use of a rollator for ambulation in the home and the community. Discharge Orders/Prescriptions Prescriptions: New furosemide 40 mg Tablet 40 mg PO BIDLX 30 Days Qty: 60 0RF acetaminophen 500 mg Tablet 1,000 mg PO Q6H PRN PRN (Reason: Pain Score 1-10) Qty: 0 0RF metoclopramide HCl 5 mg Tablet 5 mg PO TID 30 Days Qty: 90 0RF hydrocortisone 2.5 % Cream 1 applic topical BID 30 Days Qty: 45 0RF Protocol: *Topical Application Instructions APPLICATION INSTRUCTIONS: Apply to affected area two times a day Eliquis 5 mg Tablet 5 mg PO BID 30 Days Qty: 60 0RF potassium chloride 20 mEq Tablet,Er Particles/Crystals 20 meq PO BID 30 Days Qty: 60 0RF Continued rosuvastatin [Crestor] 5 mg tablet 5 mg PO SUMOWEFR calcium carbonate [Tums] 200 mg calcium (500 mg) tablet,chewable 200 mg PO DAILY cholecalciferol (vitamin D3) 50 mcg (2,000 unit) capsule 7,000 unit PO DAILY coenzyme Q10 100 mg capsule 100 mg PO DAILY zinc 50 mg capsule 50 mg PO DAILY ascorbic acid (vitamin C) [C-1000] 1,000 mg tablet 2 g PO DAILY bupropion HCl 150 mg tablet extended release 24 hr 150 mg PO DAILY ferrous sulfate [FeroSul] 325 mg (65 mg iron) tablet 325 mg PO DAILY trametinib [Mekinist] 10 mg PO DAILY betamethasone, augmented 0.05 % cream topical BID PRN PRN (Reason: skin irritation) ondansetron 4 mg tablet,disintegrating 4 mg PO Q8H PRN PRN (Reason: Nausea) Qty: 10 0RF amiodarone 200 mg tablet 200 mg PO DAILY sulfasalazine 500 mg tablet,delayed release (DR/EC) 1 g PO DAILY Qty: 60 11RF folic acid 1 mg tablet 1 mg PO DAILY Qty: 90 3RF diltiazem HCl 120 mg capsule,extended release 24hr 120 mg PO Q12H Qty: 180 3RF metoprolol tartrate 50 mg tablet 50 mg PO BID Qty: 180 3RF Discontinued potassium chloride 20 mEq tablet extended release 20 meq PO BID mupirocin calcium 2 % cream 1 applic topical TID Qty: 15 0RF nystatin 100,000 unit/gram powder 1 applic topical TID Qty: 60 0RF sulfamethoxazole-trimethoprim 800-160 mg tablet 1 tab PO BID amoxicillin-pot clavulanate 875-125 mg tablet 1 tab PO Q12H metoclopramide HCl 5 mg tablet 5 mg PO TID hydrocortisone 2.5 % cream topical BID ibuprofen [IBU] 600 mg tablet 600 mg PO Q6H Eliquis 5 mg tablet 2.5 mg PO BID furosemide [Lasix] 40 mg tablet 40 mg PO BID Qty: 60 3RF Referrals / Follow Up: Rusty,DO Gini [Primary Care Provider] - Disposition Disposition (needs filled in before D/C Order can be placed): Home Health Service
--- NOTE | 2024-09-30 14:09 | CASEMGMT ---
Social Work SW completed BIMS () and PHQ-2 () for MDS assessment. Hayde Gore UI DEVELOPER FACULTY ADMINISTRATOR
--- NOTE | 2024-09-30 17:48 | EX.PCM.CON.G ---
HPI Consult Data Date of Consult: 09/30/24 HPI Narrative Reason for Consultation: Anemia HPI Narrative: FAVIO HE, is a 79 F with PMH: PAF, Chronic anemia, Asthma/COPD, HTN, HLD, Ovarian CA s/p KOLBY w/ unilateral oopherectomy, NAFLD, Chronic diarrhea. I have been seeing her for a while for her history of chronic anemia and chronic diarrhea after undergoing chemotherapy for her ovarian cancer. She also has been identified as having lymphocytic colitis. Recently her hemoglobin has been trending down from 14-9.6. She did see some blood in her stool but she thought it was mostly hemorrhoidal bleeding [facility] Medical History Ovarian cancer Hyperlipemia Paroxysmal atrial fibrillation Chronic anticoagulation Chronic anticoagulation Anemia Bladder prolapse History of cardioversion Cardiology follow-up encounter Cellulitis Multiple thyroid nodules Multiple thyroid nodules NAFLD (nonalcoholic fatty liver disease) Diarrhea Steatosis Hepatomegaly Non-smoker Shortness of breath on exertion COPD (chronic obstructive pulmonary disease) Recurrent ventral incisional hernia Thyroid nodule Right lower lobe pulmonary nodule Atrial fibrillation with rapid ventricular response (10/12/20) Nonrheumatic mitral valve stenosis with insufficiency Essential (primary) hypertension Peritoneal carcinomatosis Ovarian cancer Cholelithiasis Chronic cholecystitis Calculus of gallbladder with chronic cholecystitis without obstruction Vitamin D deficiency Carpal tunnel syndrome, bilateral Bilateral carotid artery stenosis Asthma Fatty liver Sciatica Osteopenia Paresthesia Home Medications ?Medication ?Instructions ?Recorded ?Last Taken ?Type calcium carbonate (Tums) 200 mg PO DAILY supplement 10/09/17 Unknown History rosuvastatin 5 mg tablet (Crestor) 5 mg PO SUMOWEFR CHOLESTEROL 10/09/17 10/23/23 History coenzyme Q10 100 mg capsule 100 mg PO DAILY Supplement 10/23/20 Unknown History cholecalciferol (vitamin D3) 50 7,000 unit PO DAILY supplement 03/16/23 Unknown History mcg (2,000 unit) capsule ascorbic acid (vitamin C) 1,000 mg 2 g PO DAILY Supplement 09/23/23 Unknown History tablet (C-1000) zinc 50 mg capsule 50 mg PO DAILY Supplement 09/23/23 Unknown History bupropion HCl 150 mg 24 hr tablet, 150 mg PO DAILY Mood 10/25/23 Unknown History extended release ferrous sulfate 325 mg (65 mg 325 mg PO DAILY Supplement 10/25/23 Unknown History iron) tablet (FeroSul) trametinib 10 mg PO DAILY 10/25/23 Unknown History folic acid 1 mg tablet 1 mg PO DAILY #90 tabs 10/29/23 Unknown Rx sulfasalazine 500 mg 1 g (2 x 500 mg) PO DAILY #60 tabs 10/29/23 Unknown Rx tablet,delayed release diltiazem HCl 120 mg 120 mg PO Q12H Heart #180 caps 05/13/24 09/20/24 08:40 Rx capsule,extended release 24 hr betamethasone, augmented 0.05 % applic topical BID PRN PRN skin 06/28/24 Unknown History topical cream irritation ondansetron 4 mg disintegrating 4 mg PO Q8H PRN PRN Nausea #10 tabs 06/28/24 Unknown Rx tablet metoprolol tartrate 50 mg tablet 50 mg PO BID BP #180 tabs 08/04/24 09/20/24 08:30 Rx amiodarone 200 mg tablet 200 mg PO DAILY Heart Rhythm 09/20/24 09/20/24 08:30 History acetaminophen 500 mg tablet 1,000 mg (2 x 500 mg) PO Q6H PRN 09/30/24 Unknown Rx PRN Pain Score 1-10 #0 tabs apixaban 5 mg tablet (Eliquis) 5 mg PO BID 30 days #60 tabs 09/30/24 Unknown Rx furosemide 40 mg tablet 40 mg PO BIDLX 30 days #60 tabs 09/30/24 Unknown Rx hydrocortisone 2.5 % topical cream 1 applic topical BID 30 days #45 09/30/24 Unknown Rx grams metoclopramide HCl 5 mg tablet 5 mg PO TID 30 days #90 tabs 09/30/24 Unknown Rx potassium chloride 20 mEq 20 meq PO BID 30 days #60 tabs 09/30/24 Unknown Rx tablet,extended release(part/cryst) Allergy/AdvReac Type Severity Reaction Status Date / Time morphine AdvReac Severe Nausea/Vom/ Verified 09/04/24 18:07 Diarrhea penicillin G AdvReac Unknown Unknown Verified 09/04/24 18:07 Family History Father CAD (coronary artery disease) Diabetes Mother Lymphoma Sister Colon cancer Brother Colon cancer Surgical History History of rectal polypectomy History of hysterectomy with unilateral oophorectomy (1983) History of cholecystectomy (10/23/17) H/O nasal polypectomy History of colonoscopy History of hernia repair (10/2020) History of shoulder replacement (2019) History of exploratory laparotomy (10/2020) Status post laser ablation of incompetent vein Social History household members: none and other details: . Smoking Status: Never smoker second hand exposure: No alcohol intake: never details: rare substance use type: does not use caffeine: No what type of physical activity do you participate in: walking frequency: 3-4 times per week duration: < 15 minutes/day patricia/jainism: Holiness seatbelt use: always do you feel safe at home: Yes ROS Constitutional Constitutional: Denies fatigue, fever(s), poor appetite, weight gain or weight loss Gastrointestinal Gastrointestinal: Denies belching, bloating, change in bowel habits, change in stool character, chewing difficulty, coffee ground emesis, constipation, cramping, diarrhea, dyspepsia, dysphagia, early satiety, excessive flatus, fecal incontinence, heartburn, hematemesis, hematochezia, hemorrhoids, loose stools, melena, nausea, odynophagia, rectal bleeding, tenesmus, vomiting or weight changes Physical Exam Const alert General Appearance: cooperative HEENT normocephalic Eyes PERRL and EOMs intact bilaterally Neck supple, no JVD and no carotid bruits Resp normal respiratory effort, normal air movement and clear to auscultation bilaterally Cardio regular rate and regular rhythm GI normal to inspection, nondistended, normoactive bowel sounds, non-tender and non-distended Extremity normal capillary refill General Extremity: Negative for edema Skin no rashes or lesions noted General Skin Exam: no breakdown Psych affect normal Appearance: appropriate Lab / Micro Data 09/29/24 05:03 09/28/24 05:10 Micro: Microbiology 09/30/24 09:30 Stool Stool Occult Blood (JC) - Final Occult Blood Positive Assessment & Plan Assessment/Plan (1) GI bleed: (2) Ovarian cancer: QUALIFIERS: Laterality: unspecified laterality Qualified Code(s): C56.9 - Malignant neoplasm of unspecified ovary (3) Paroxysmal atrial fibrillation: PLAN: Plan Suspect upper vs lower GI bleed secondary to Eliquis. -Colonoscopy was found to have anal fissure, ulcers in rectum, diverticulosis and congested mucosa of the colon -There was concern pt may have UC. Therefore we requested she be started on sulfasalazine plus folic acid as budesonide was too expensive. She has not started this medicine yet can bring this in -Follows w/ Dr. Julián Kenyon w/ [facility] and he requested to call or message tomorrow with an update on how she is doing, office number is [phone] We will perform an upper endoscopy on Thursday Charges/Coding Visit Charges Inpatient E&M: [address] [facility] Init L2
[2024-09-30 21:15] VITALS: BP 110/50; PULSE 66
[2024-09-30 21:16] VITALS: BP 110/50; PULSE 66
[2024-09-30] MEDS: Atorvastatin Calcium 10 MG Tablet PO (21:16)
[2024-10-01 05:53] LABS: Hematocrit 32.4 % (37-47); Hemoglobin 10.1 g/dL (12.0-15.0)
[2024-10-01 06:10] VITALS: BP 103/52; PULSE 63
[2024-10-01] MEDS: Metoclopramide 5 MG TABLET PO ×3 (06:15→20:59)
[2024-10-01] MEDS: Furosemide 40 MG Tablet PO ×2 (06:15→14:05)
[2024-10-01] MEDS: Acetaminophen 500 MG Tablet 1000 MG PO (06:40)
[2024-10-01] MEDS: Hydrocortisone 2.5% Crm 1 APPLIC TOPICAL ×2 (09:18→21:00)
[2024-10-01] MEDS: Menthol/Lanolin/Calamine/Znox 113 GM Tube 1 APPLIC TOPICAL (09:19)
[2024-10-01] MEDS: dilTIAZem CD 120 MG Capsule PO ×2 (09:19→21:00)
[2024-10-01 09:20] VITALS: BP 114/56; PULSE 79
[2024-10-01] MEDS: Amiodarone 200 MG Tablet PO (09:20)
[2024-10-01] MEDS: APIXABAN 5 MG TABLET PO ×2 (09:20→20:59)
[2024-10-01] MEDS: Metoprolol Tartrate 50 MG Tablet PO ×2 (09:20→20:59)
[2024-10-01] MEDS: Potassium Chloride Oral Tablet 20 MEQ PO ×2 (09:20→20:59)
[2024-10-01] MEDS: Calcium Carbonate 500 MG Tablet PO (09:21)
[2024-10-01] MEDS: Cholecalciferol (Vit D3) 125 MCG CAPSULE (5,000 UNITS) PO (09:21)
[2024-10-01] MEDS: Ascorbic Acid 500 MG Tablet 2000 MG PO (09:21)
[2024-10-01] MEDS: Nystatin Powder 15gm Bottle 1 APPLIC TOPICAL ×2 (09:21→21:06)
[2024-10-01] MEDS: buPROPion (XL) 150 MG TABLET.XL PO (09:22)
[2024-10-01] MEDS: Zinc Sulfate 50 mg zinc (220 mg) ORAL capsule PO (09:22)
[2024-10-01 09:24] VITALS: BP 114/56; PULSE 79; RESP 16; TEMP 36.7; O2SAT 96
[2024-10-01] MEDS: Ferrous Sulfate 325 MG Tablet PO (11:29)
--- NOTE | 2024-10-01 12:23 | NURSING ---
MEDICAL CLERK REPORTED THAT PT REQUESTING PRN TUMS FOR INDIGESTION. PT TAKES ONE DAILY PER MAR BUT TAKES NEEDED AT HOME WELL. DR ONEILL UPDATED, NEW ORDER FOR PRN TUMS
[2024-10-01 14:07] VITALS: BP 104/52
[2024-10-01 20:59] VITALS: BP 124/68; PULSE 85
[2024-10-02] MEDS: Furosemide 40 MG Tablet PO ×2 (06:08→13:57)
[2024-10-02] MEDS: Metoclopramide 5 MG TABLET PO ×3 (06:08→21:42)
[2024-10-02 08:47] VITALS: BP 130/61; PULSE 71; RESP 18; TEMP 36.8; O2SAT 96
[2024-10-02] MEDS: Hydrocortisone 2.5% Crm 1 APPLIC TOPICAL ×2 (08:51→21:42)
[2024-10-02] MEDS: dilTIAZem CD 120 MG Capsule PO ×2 (08:52→21:42)
[2024-10-02 08:53] VITALS: PULSE 71
[2024-10-02] MEDS: Metoprolol Tartrate 50 MG Tablet PO ×2 (08:53→21:42)
[2024-10-02] MEDS: APIXABAN 5 MG TABLET PO ×2 (08:53→21:42)
[2024-10-02] MEDS: Calcium Carbonate 500 MG Tablet PO (08:53)
[2024-10-02] MEDS: Amiodarone 200 MG Tablet PO (08:53)
[2024-10-02] MEDS: Potassium Chloride Oral Tablet 20 MEQ PO ×2 (08:53→21:42)
[2024-10-02] MEDS: Ascorbic Acid 500 MG Tablet 2000 MG PO (08:53)
[2024-10-02] MEDS: Cholecalciferol (Vit D3) 125 MCG CAPSULE (5,000 UNITS) PO (08:54)
[2024-10-02] MEDS: Zinc Sulfate 50 mg zinc (220 mg) ORAL capsule PO (08:54)
[2024-10-02] MEDS: buPROPion (XL) 150 MG TABLET.XL PO (08:54)
[2024-10-02] MEDS: Nystatin Powder 15gm Bottle 1 APPLIC TOPICAL ×2 (09:09→21:44)
[2024-10-02] MEDS: Ferrous Sulfate 325 MG Tablet PO (11:32)
[2024-10-02] MEDS: Atorvastatin Calcium 10 MG Tablet PO (18:30)
[2024-10-02 20:22] VITALS: PULSE 67; RESP 16; O2SAT 99
[2024-10-02 21:30] VITALS: BP 118/58; PULSE 69; RESP 16
[2024-10-02 21:42] VITALS: BP 118/58; PULSE 69
[2024-10-02] MEDS: Menthol/Lanolin/Calamine/Znox 113 GM Tube 1 APPLIC TOPICAL (21:43)
--- NOTE | 2024-10-03 00:01 | NURSING ---
NPO at this time for procedure with
--- NOTE | 2024-10-03 05:54 | NURSING ---
0600 meds not administered at this time due to NPO status
[2024-10-03 07:03] VITALS: PULSE 70; RESP 18; O2SAT 98
[2024-10-03 09:00] VITALS: BP 118/56; PULSE 65; RESP 16; O2SAT 95
--- NOTE | 2024-10-03 09:33 | MDS.RN ---
Information for the MDS was obtained from review of the clinical record, interview of resident, staff, and direct observation of resident?s care.
--- NOTE | 2024-10-03 10:14 | NURSING ---
Patient left floor at this time for procedure with Dr. Iyer.
--- NOTE | 2024-10-03 12:22 | NURSING ---
Patient returned to floor from procedure at this time.
--- NOTE | 2024-10-03 12:23 | NURSING ---
Returned to room from egd.
[2024-10-03 12:35] VITALS: BP 102/50; PULSE 63; RESP 16; TEMP 36.7; O2SAT 96
[2024-10-03 14:00] VITALS: BP 102/50; PULSE 63; RESP 16; TEMP 36.7; O2SAT 96
[2024-10-03] MEDS: Hydrocortisone 2.5% Crm 1 APPLIC TOPICAL (14:09)
[2024-10-03] MEDS: Ferrous Sulfate 325 MG Tablet PO (14:10)
[2024-10-03] MEDS: buPROPion (XL) 150 MG TABLET.XL PO (14:10)
[2024-10-03] MEDS: Furosemide 40 MG Tablet PO (14:10)
[2024-10-03] MEDS: Metoclopramide 5 MG TABLET PO (14:10)
[2024-10-03] MEDS: Cholecalciferol (Vit D3) 125 MCG CAPSULE (5,000 UNITS) PO (14:10)
[2024-10-03] MEDS: APIXABAN 5 MG TABLET PO (14:10)
[2024-10-03] MEDS: Potassium Chloride Oral Tablet 20 MEQ PO (14:10)
[2024-10-03] MEDS: Zinc Sulfate 50 mg zinc (220 mg) ORAL capsule PO (14:10)
[2024-10-03] MEDS: Ascorbic Acid 500 MG Tablet 2000 MG PO (14:10)
[2024-10-03] MEDS: Nystatin Powder 15gm Bottle 1 APPLIC TOPICAL (14:11)
[2024-10-03] MEDS: Amiodarone 200 MG Tablet PO (14:11)
[2024-10-03] MEDS: Calcium Carbonate 500 MG Tablet PO (14:11)
== END 2024-10-03 16:36 | disposition home health service (06) | DRG 754 ==
PROVIDERS: Admitting Provider Family Medicine Geriatric Medicine; PCP Internal Medicine; Referring Provider Family Medicine Geriatric Medicine; Visit Provider Family Medicine Geriatric Medicine
DX: C56.9 Malignant neoplasm of unspecified ovary (principal); J18.8 Other pneumonia, unspecified organism; E44.0 Moderate protein-calorie malnutrition; K56.609 Unspecified intestinal obstruction, unspecified as to partial versus complete obstruction; J44.0 Chronic obstructive pulmonary disease with (acute) lower respiratory infection; K42.0 Umbilical hernia with obstruction, without gangrene; C78.6 Secondary malignant neoplasm of retroperitoneum and peritoneum; N39.0 Urinary tract infection, site not specified; D50.9 Iron deficiency anemia, unspecified; F32.A Depression, unspecified; K76.0 Fatty (change of) liver, not elsewhere classified; I10 Essential (primary) hypertension; Z68.30 Body mass index [BMI] 30.0-30.9, adult; I48.0 Paroxysmal atrial fibrillation; E87.6 Hypokalemia; E78.5 Hyperlipidemia, unspecified; E55.9 Vitamin D deficiency, unspecified; K57.90 Diverticulosis of intestine, part unspecified, without perforation or abscess without bleeding; B35.4 Tinea corporis; Z79.01 Long term (current) use of anticoagulants; Y95 Nosocomial condition; Z90.710 Acquired absence of both cervix and uterus
CPT/HCPCS: 36415; 74018; 80048; 80061; 82274; 82306; 85014; 85018; 85025; 97110; 97116; 97162; 97166; 97530; 97535; 97802

== ENCOUNTER 2024-10-03 10:25 | Day surgery (SDC) | payer MEDICARE, SELFPAY ==
[2024-10-03] VITALS (8 sets, daily range): BP systolic 102–129; BP diastolic 46–60; PULSE 62–78; RESP 16–18; TEMP 2.2–36.8; O2SAT 95–96; BMI 29.4
--- NOTE | 2024-10-03 10:56 | PCM.PRE.AN2 ---
ASA Classification* ASA Classification ASA Classification: 3 Assessment & Plan Anesthesia* Anesthesia Assessment Anesthesia Assessment: Discussed sedation and/or anesthesia options, risks, benefits, and alternatives with patient/parents/legal guardian/POA. Questions invited. The patient/parents/legal guardian/POA seems to understand and agrees to proceed with anesthesia plan. Reviewed the physical assessment, medical history, allergy history and patient home medications list prior to surgery/procedure/anesthetic and documented any changes. Performed airway and anesthesia risk assessments. Anesthesia Type Anesthesia Type: MAC Anesthesia Focused Assessment* Temperature: 97.7 F Pulse Rate: 65 Blood Pressure: 102/53 Respiratory Rate: 18 Pulse Ox: 96 Airway Assessment Mouth opens: >3 cm Mallampati Score: II Focused Labs Anesthesia Preop lab: CBC WBC 8.1 K/mm3 (4.4-11.0) 09/28/24 05:10 09/28/24 RBC 3.29 M/mm3 (4.2-5.4) L 09/28/24 05:10 09/28/24 Hgb 10.1 g/dL (12.0-15.0) L 10/01/24 05:06 10/01/24 Hct 32.4 % (37-47) L 10/01/24 05:06 10/01/24 Plt Count 351 K/mm3 (150-450) 09/28/24 05:10 09/28/24 CHEMISTRY Potassium 3.6 mmol/L (3.5-5.1) 09/28/24 05:10 09/28/24 Sodium 138 mmol/L (136-145) 09/28/24 05:10 09/28/24 Magnesium 1.9 mg/dL (1.6-2.6) 09/23/23 19:40 09/23/23 Phosphorus 3.6 mg/dL (2.5-4.9) 09/23/23 19:40 09/23/23 BUN 13 mg/dL (7-18) 09/28/24 05:10 09/28/24 Creatinine 0.59 mg/dL (0.55-1.02) 09/28/24 05:10 09/28/24 Glucose 90 mg/dL (74-106) 09/28/24 05:10 09/28/24 POC Glucose 120 mg/dL (70-110) H 10/14/20 02:21 10/14/20 TSH 2.43 uIU/mL (0.358-3.74) 10/26/23 03:45 10/26/23 COAG PT 17.0 SECONDS (11.7-14.9) H 10/25/23 13:30 10/25/23 Pre-Assessment Diagnosis/Proposed Procedure Planned Operative Procedure(s): EGD Anesthesia History 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 When Was Last Pacemaker Check QUESTION #4 FULL TEXT: You/Your Family Experience fever (hyperthermia) with Anesthesia Last Oral Intake Last Oral intake: Last Oral Intake NPO since 23:00 10/03/24 10:35 Meds taken in AM with sips of No 10/03/24 10:35 water? 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 Has anyone observed you stop breathing during sleep? STOP Results QUESTION #5 FULL TEXT : Do you snore loudly (louder than talking or can be heard through closed doors)? 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 Specify any problems Hx of Preganancy in last 3 Months Nurse Filling Out Transfusion & Questions: Date: Time: Patient unable to answer at this time (ie. 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: /Reproductive Hx- sewing machine operator Hx Now Gestational Age (in weeks): EDC: Hx Hx Para Hx Section SAB No 10/25/23 20:59 PFSH Medical History Ovarian cancer Hyperlipemia Paroxysmal atrial fibrillation Chronic anticoagulation Chronic anticoagulation Anemia Bladder prolapse History of cardioversion Cardiology follow-up encounter Cellulitis Multiple thyroid nodules Multiple thyroid nodules NAFLD (nonalcoholic fatty liver disease) Diarrhea Steatosis Hepatomegaly Non-smoker Shortness of breath on exertion COPD (chronic obstructive pulmonary disease) Recurrent ventral incisional hernia Thyroid nodule Right lower lobe pulmonary nodule Atrial fibrillation with rapid ventricular response (10/12/20) Nonrheumatic mitral valve stenosis with insufficiency Essential (primary) hypertension Peritoneal carcinomatosis Ovarian cancer Cholelithiasis Chronic cholecystitis Calculus of gallbladder with chronic cholecystitis without obstruction Vitamin D deficiency Carpal tunnel syndrome, bilateral Bilateral carotid artery stenosis Asthma Fatty liver Sciatica Osteopenia Paresthesia Home Medications ?Medication ?Instructions ?Recorded ?Last Taken ?Type calcium carbonate (Tums) 200 mg PO DAILY supplement 10/09/17 Unknown History rosuvastatin 5 mg tablet (Crestor) 5 mg PO SUMOWEFR CHOLESTEROL 10/09/17 10/23/23 History coenzyme Q10 100 mg capsule 100 mg PO DAILY Supplement 10/23/20 Unknown History cholecalciferol (vitamin D3) 50 7,000 unit PO DAILY supplement 03/16/23 Unknown History mcg (2,000 unit) capsule ascorbic acid (vitamin C) 1,000 mg 2 g PO DAILY Supplement 09/23/23 Unknown History tablet (C-1000) zinc 50 mg capsule 50 mg PO DAILY Supplement 09/23/23 Unknown History bupropion HCl 150 mg 24 hr tablet, 150 mg PO DAILY Mood 10/25/23 Unknown History extended release ferrous sulfate 325 mg (65 mg 325 mg PO DAILY Supplement 10/25/23 Unknown History iron) tablet (FeroSul) trametinib 10 mg PO DAILY 10/25/23 Unknown History folic acid 1 mg tablet 1 mg PO DAILY #90 tabs 10/29/23 Unknown Rx sulfasalazine 500 mg 1 g (2 x 500 mg) PO DAILY #60 tabs 10/29/23 Unknown Rx tablet,delayed release diltiazem HCl 120 mg 120 mg PO Q12H Heart #180 caps 05/13/24 09/20/24 08:40 Rx capsule,extended release 24 hr betamethasone, augmented 0.05 % applic topical BID PRN PRN skin 06/28/24 Unknown History topical cream irritation ondansetron 4 mg disintegrating 4 mg PO Q8H PRN PRN Nausea #10 tabs 06/28/24 Unknown Rx tablet metoprolol tartrate 50 mg tablet 50 mg PO BID BP #180 tabs 08/04/24 09/20/24 08:30 Rx amiodarone 200 mg tablet 200 mg PO DAILY Heart Rhythm 09/20/24 09/20/24 08:30 History acetaminophen 500 mg tablet 1,000 mg (2 x 500 mg) PO Q6H PRN 09/30/24 Unknown Rx PRN Pain Score 1-10 #0 tabs apixaban 5 mg tablet (Eliquis) 5 mg PO BID 30 days #60 tabs 09/30/24 Unknown Rx furosemide 40 mg tablet 40 mg PO BIDLX 30 days #60 tabs 09/30/24 Unknown Rx hydrocortisone 2.5 % topical cream 1 applic topical BID 30 days #45 09/30/24 Unknown Rx grams metoclopramide HCl 5 mg tablet 5 mg PO TID 30 days #90 tabs 09/30/24 Unknown Rx potassium chloride 20 mEq 20 meq PO BID 30 days #60 tabs 09/30/24 Unknown Rx tablet,extended release(part/cryst) Allergy/AdvReac Type Severity Reaction Status Date / Time morphine AdvReac Severe Nausea/Vom/ Verified 10/03/24 10:30 Diarrhea penicillin G AdvReac Unknown Unknown Verified 10/03/24 10:30 Family History Father CAD (coronary artery disease) Diabetes Mother Lymphoma Sister Colon cancer Brother Colon cancer Surgical History History of rectal polypectomy History of hysterectomy with unilateral oophorectomy (1983) History of cholecystectomy (10/23/17) H/O nasal polypectomy History of colonoscopy History of hernia repair (10/2020) History of shoulder replacement (2019) History of exploratory laparotomy (10/2020) Status post laser ablation of incompetent vein Social History household members: none and other details: . Smoking Status: Never smoker second hand exposure: No alcohol intake: never details: rare substance use type: does not use caffeine: No what type of physical activity do you participate in: walking frequency: 3-4 times per week duration: < 15 minutes/day patricia/baptist: Mu-Ism seatbelt use: always do you feel safe at home: Yes Review of Systems (Anesthesia) ROS Narrative System reviewed and no additional complaints, except as documented.
--- NOTE | 2024-10-03 11:24 | HP.PCM_ITS ---
HPI - General General Date of Admission: 10/03/24 Date of Service: 10/03/24 Chief Complaint: anemia HPI Narrative FAVIO HE, is a 79 F who persents for the evaluation of anemia. She has a PMH: PAF, Chronic anemia, Asthma/COPD, HTN, HLD, Ovarian CA s/p KOLBY w/ unilateral oopherectomy, NAFLD, Chronic diarrhea. I have been seeing her for a while for her history of chronic anemia and chronic diarrhea after undergoing chemotherapy for her ovarian cancer. She also has been identified as having lymphocytic colitis. Recently her hemoglobin has been trending down from 14- 9.6. She did see some blood in her stool but she thought it was mostly hemorrhoidal bleeding [facility] Medical History Ovarian cancer Hyperlipemia Paroxysmal atrial fibrillation Chronic anticoagulation Chronic anticoagulation Anemia Bladder prolapse History of cardioversion Cardiology follow-up encounter Cellulitis Multiple thyroid nodules Multiple thyroid nodules NAFLD (nonalcoholic fatty liver disease) Diarrhea Steatosis Hepatomegaly Non-smoker Shortness of breath on exertion COPD (chronic obstructive pulmonary disease) Recurrent ventral incisional hernia Thyroid nodule Right lower lobe pulmonary nodule Atrial fibrillation with rapid ventricular response (10/12/20) Nonrheumatic mitral valve stenosis with insufficiency Essential (primary) hypertension Peritoneal carcinomatosis Ovarian cancer Cholelithiasis Chronic cholecystitis Calculus of gallbladder with chronic cholecystitis without obstruction Vitamin D deficiency Carpal tunnel syndrome, bilateral Bilateral carotid artery stenosis Asthma Fatty liver Sciatica Osteopenia Paresthesia Home Medications ?Medication ?Instructions ?Recorded ?Last Taken ?Type calcium carbonate (Tums) 200 mg PO DAILY supplement 0 10/09/17 Unknown History rosuvastatin 5 mg tablet (Crestor) 5 mg PO SUMOWEFR CH OLESTEROL 10/09/17 10/23/23 History coenzyme Q10 100 mg capsule 100 mg PO DAILY Supplement 10/23/20 Unknown History cholecalciferol (vitamin D3) 50 7,000 unit PO DAILY byrnes pplement 03/16/23 Unknown History mcg (2,000 unit) capsule ascorbic acid (vitamin C) 1,000 mg 2 g PO DAILY Supple ment 09/23/23 Unknown History tablet (C-1000) zinc 50 mg capsule 50 mg PO DAILY Supplement Unknown History bupropion HCl 150 mg 24 hr tablet, 150 mg PO DAILY Moo d 10/25/23 Unknown History extended release ferrous sulfate 325 mg (65 mg 325 mg PO DAILY Suppleme nt 10/25/23 Unknown History iron) tablet (FeroSul) trametinib 10 mg PO DAILY 10/25/23 Unkn own History folic acid 1 mg tablet 1 mg PO DAILY #90 tabs Unknown Rx sulfasalazine 500 mg 1 g (2 x 500 mg) PO DAILY #6 0 tabs 10/29/23 Unknown Rx tablet,delayed release diltiazem HCl 120 mg 120 mg PO Q12H Heart #180 ca ps 05/13/24 09/20/24 08:40 Rx capsule,extended release 24 hr betamethasone, augmented 0.05 % applic topical BID PRN PRN skin 06/28/24 Unknown History topical cream irritation ondansetron 4 mg disintegrating 4 mg PO Q8H PRN PRN Na usea #10 tabs 06/28/24 Unknown Rx tablet metoprolol tartrate 50 mg tablet 50 mg PO BID BP #180 tabs 08/04/24 09/20/24 08:30 Rx amiodarone 200 mg tablet 200 mg PO DAILY Heart Rhythm 09/20/24 09/20/24 08:30 History acetaminophen 500 mg tablet 1,000 mg (2 x 500 mg) PO Q 6H PRN 09/30/24 Unknown Rx PRN Pain Score 1-10 #0 tabs apixaban 5 mg tablet (Eliquis) 5 mg PO BID 30 days #60 tabs 09/30/24 Unknown Rx furosemide 40 mg tablet 40 mg PO BIDLX 30 days #60 t abs 09/30/24 Unknown Rx hydrocortisone 2.5 % topical cream 1 applic topical BI D 30 days #45 09/30/24 Unknown Rx grams metoclopramide HCl 5 mg tablet 5 mg PO TID 30 days #90 tabs 09/30/24 Unknown Rx potassium chloride 20 mEq 20 meq PO BID 30 days #60 ta bs 09/30/24 Unknown Rx tablet,extended release(part/cryst) Allergy/AdvReac Type Severity Reaction Status Date / Time morphine AdvReac Severe Nausea/Vom/ Verified 10/03/24 10:30 Diarrhea penicillin G AdvReac Unknown Unknown Verified 10/03/24 10:30 Family History Father CAD (coronary artery disease) Diabetes Mother Lymphoma Sister Colon cancer Brother Colon cancer Surgical History History of rectal polypectomy History of hysterectomy with unilateral oophorectomy (1983) History of cholecystectomy (10/23/17) H/O nasal polypectomy History of colonoscopy History of hernia repair (10/2020) History of shoulder replacement (2019) History of exploratory laparotomy (10/2020) Status post laser ablation of incompetent vein Social History household members: none and other details: . Smoking Status: Never smoker second hand exposure: No alcohol intake: never details: rare substance use type: does not use caffeine: No what type of physical activity do you participate in: walking frequency: 3-4 times per week duration: < 15 minutes/day patricia/voodoo: Bahai seatbelt use: always do you feel safe at home: Yes ROS Constitutional Constitutional: Denies fatigue, fever(s), poor appetite, weight gain or weight loss Gastrointestinal Gastrointestinal: Denies belching, bloating, change in bowel habits, change in stool character, chewing difficulty, coffee ground emesis, constipation, cramping, diarrhea, dyspepsia, dysphagia, early satiety, excessive flatus, fecal incontinence, heartburn, hematemesis, hematochezia, hemorrhoids, loose stools, melena, nausea, odynophagia, rectal bleeding, tenesmus, vomiting or weight changes Vital Signs Vital Signs Vital Signs: 10/03/24 10:35 10/03/24 10:35 10/03/24 10:57 Temperature 97.7 F L 97.7 F L Temperature Source Temporal Pulse Rate 65 65 Respiratory Rate 18 18 Respiratory Pattern Normal Blood Pressure 102/53 L 102/53 L Blood Pressure Mean 69 Blood Pressure Source Monitor Blood Pressure Position Semi-Fowlers Blood Pressure Location Left Arm Pulse Ox 96 96 Oxygen Delivery Method Room Air Weight Weight: 188 lb Body Mass Index (BMI) 29.4 Physical Exam Const alert General Appearance: cooperative HEENT normocephalic Eyes PERRL and EOMs intact bilaterally Neck supple, no JVD and no carotid bruits Resp normal respiratory effort, normal air movement and clear to auscultation bilaterally Cardio regular rate and regular rhythm GI normal to inspection, nondistended, normoactive bowel sounds, non-tender and non-distended Extremity normal capillary refill General Extremity: Negative for edema Skin no rashes or lesions noted General Skin Exam: no breakdown Psych affect normal Appearance: appropriate Assessment & Plan Assessment/Plan (1) GI bleed: (2) Ovarian cancer: QUALIFIERS: Laterality: unspecified laterality Qualified Code(s): C56.9 - Malignant neoplasm of unspecified ovary (3) Paroxysmal atrial fibrillation: PLAN: Plan Suspect upper vs lower GI bleed secondary to Eliquis. -Colonoscopy was found to have anal fissure, ulcers in rectum, diverticulosis and congested mucosa of the colon -There was concern pt may have UC. Therefore we requested she be started on sulfasalazine plus folic acid as budesonide was too expensive. She has not started this medicine yet can bring this in -Follows w/ Dr. Julián Kenyon w/ [facility] and he requested to call or message tomorrow with an update on how she is doing, office number is [phone] We will perform an upper endoscopy today
--- NOTE | 2024-10-03 11:30 | EGD_PTH ---
PATIENT: FAVIO HE LOC: EN U#:[id number] AGE/SX: 79/F ROOM: RE10/03/[address]: Dr. Norberto Iyer DO : 1945 BED: DIS: 10/03/2024 SPEC #: [id number] RECD: 10/03/24 13:31 STATUS: NORMAN RERyann #: [id number] KARISSA: 10/03/24 11:[address]: Norberto Iyer DEPT: SURGICAL PATHOLOGY RECD BY: Vianey Clark ENTERED: 10/03/24 13:47 SP TYPE: EGD BIOPSY OTHR DR: Dr. Gini Ojeda DO Tissues: Gastric mucous membrane Procedures: Surgery Specimen Level IV HEADER OPERATION: EGD with biopsy PRE-OP DIAGNOSIS: GI bleed, ovarian cancer, paroxysmal atrial fibrillation TISSUE SUBMITTED: Gastric body biopsy MICROSCOPIC DIAGNOSIS Gastric body, biopsy: Mild gastritis. See microscopic description and comment. 10/04/2024 COMMENT The results of immunohistochemistry for Helicobacter pylori will be reported separately ([id number]). MICROSCOPIC DESCRIPTION Slides are reviewed. The specimen shows fragments of gastric mucosa with chronic inflammatory cell infiltrates in the lamina propria consisting of lymphocytes and plasma cells, consistent with mild chronic gastritis. GROSS DESCRIPTION Received in fixative is one container labeled with the patient's name and designated Gastric body biopsy. The specimen consists of two irregular fragments of light mejia soft tissue that in aggregate measure 1.2 x 0.3 x 0.3 cm. The specimen is totally submitted in one cassette. TOYA/ 10/03/2024 TC:3 CPT:71482
--- NOTE | 2024-10-03 11:30 | IMM_PTH ---
PATIENT: FAVIO HE LOC: EN U#:[id number] AGE/SX: 79/F ROOM: RE10/03/[address]: Dr. Norberto Iyer DO : 1945 BED: DIS: 10/03/2024 SPEC #: [id number] RECD: 10/03/24 13:54 STATUS: SOUTwan REQ #: [id number] KARISSA: 10/03/24 11:[address]: Norberto Iyer DEPT: IMMUNOHISTOCHEMISTRY RECD BY: Arias Chow ENTERED: 10/03/24 13:54 SP TYPE: IMMUNO OTHR DR: Dr. Gini Ojeda DO Tissues: Gastric mucous membrane Procedures: H Pylori (initial) PHYSICIAN & INSTITUTION [place] [id number] SPECIMEN INFORMATION: Tissue Source: Gastric body biopsy Clinical Info: GI bleed, ovarian cancer Specimen Number: [id number] CPT code: 11810 METHODOLOGY: Deparaffinized sections of prefer/formalin-fixed tissue or PAP/DQ stained slides are incubated with monoclonal/polyclonal antibodies/oligonucleotide probes. Localization is made via biotin free immunoperoxidase method. Appropriate controls are performed and reacted as expected. Results on target cell population are indicated in the following table: RESULTS: ANTIBODY / CLONE RESULT H Pylori (polyclonal) negative These tests were developed and their performance characteristics determined by [facility]. They may not have been cleared or approved by the U.S. Food and Drug Administration. The FDA has determined that such clearance or approval is not necessary. The above immunohistochemical/dualISH markers are ordered and reviewed by the Pathologist. INTERPRETATION: Gastric body, biopsy: Negative for Helicobacter pylori organisms. 10/04/2024
--- NOTE | 2024-10-03 11:54 | PCM.POST.ANE ---
Anesthesia: Postop Eval I Current Vital Signs Temperature: 36 F Pulse Rate: 78 Blood Pressure: 110/60 Respiratory Rate: 18 Pulse Ox: 96 Oxygen Delivery Method: Room Air Assessment Airway patent: Yes Spontaneous unlabored respirations: Yes Mental status: Asleep nausea: No Vomiting: No Anesthesia Complication: No Fluid Hydration Crystalloid volume administer (ml): 10 Total IV fluid infused: 10 Progress Note Anesthesia document: Postop Eval 1 completed: Yes
--- NOTE | 2024-10-03 11:56 | OP.CCLET_ITS ---
10/03/2024 Gini Ojeda Re : Upper GI endoscopy procedure for Bridgette Phipps Rusty This procedure was performed on Thursday, October 03, 2024. My impressions and recommendations are as follows: Impressions : - Normal esophagus. - Acute gastritis. Biopsied. - No gross lesions in the fourth portion of the duodenum. Recommendations : - [facility]. - Continue present medications. My findings are described in the full procedure note, which is enclosed. If I can be of further assistance, please feel free to contact me at . Sincerely, Norberto Iyer, 10/03/2024 11:55:47 AM This report has been signed electronically.
--- NOTE | 2024-10-03 11:56 | OP.EGD_ITS ---
Patient Name: Bridgette Roque Procedure Date: 10/03/2024 11:34 AM Date of : 1945 Age: 79 Procedure: Upper GI endoscopy Indications: Epigastric abdominal pain, Exclusion of peptic ulcer Providers: Norberto Iyer DO Medicines: Monitored Anesthesia Care Patient Profile: This is an 79 year old female. Refer to note in patient chart for documentation of history and physical. Patient has symptoms of acute epigastric abdominal pain. Complications: No immediate complications. Procedure: Pre-Anesthesia Assessment: - Prior to the procedure, a History and Physical was performed, and patient medications and allergies were reviewed. The patient is competent. The risks and benefits of the procedure and the sedation options and risks were discussed with the patient. All questions were answered and informed consent was obtained. Patient identification and proposed procedure were verified by the physician in the pre-procedure area. Mental Status Examination: alert and oriented. Airway Examination: normal oropharyngeal airway and neck mobility. Respiratory Examination: clear to auscultation. CV Examination: normal. Prophylactic Antibiotics: The patient does not require prophylactic antibiotics. Prior Anticoagulants: The patient has taken no anticoagulant or antiplatelet agents except for NSAID medication. ASA Grade Assessment: II - A patient with mild systemic disease. After reviewing the risks and benefits, the patient was deemed in satisfactory condition to undergo the procedure. The anesthesia plan was to use monitored anesthesia care (MAC). Immediately prior to administration of medications, the patient was re-assessed for adequacy to receive sedatives. The heart rate, respiratory rate, oxygen saturations, blood pressure, adequacy of pulmonary ventilation, and response to care were monitored throughout the procedure. The physical status of the patient was re-assessed after the procedure. After obtaining informed consent, the endoscope was passed under direct vision. Throughout the procedure, the patient's blood pressure, pulse, and oxygen saturations were monitored continuously. The Endoscope was introduced through the mouth, and advanced to the fourth part of the duodenum. Small bowel enteroscopy was deemed necessary. The upper GI endoscopy was accomplished without difficulty. The patient tolerated the procedure well. Scope In: 11:44:58 AM Scope Out: 11:47:51 AM Total Procedure Duration Time 0 hours 2 minutes 53 seconds Findings: The examined esophagus was normal. Diffuse moderate inflammation characterized by congestion (edema) and erythema was found in the gastric body and in the gastric antrum. Biopsies were taken with a cold forceps for histology. Verification of patient identification for the specimen was done. Biopsies were taken with a cold forceps for Helicobacter pylori testing. Verification of patient identification for the specimen was done. Estimated blood loss was minimal. No gross lesions were noted in the fourth portion of the duodenum. Impression: - Normal esophagus. - Acute gastritis. Biopsied. - No gross lesions in the fourth portion of the duodenum. Recommendation: - [facility]. - Continue present medications. Procedure Code(s): --- Professional --- 78990, Small intestinal endoscopy, enteroscopy beyond second portion of duodenum, not including ileum; with biopsy, single or multiple CPT copyright 2021 [employer] [employer]. All rights reserved. The codes documented in this report are preliminary and upon pyrotechnic assembler review may be revised to meet current compliance requirements. Norberto Iyer DO 10/03/2024 11:55:47 AM This report has been signed electronically. Number of Addenda: 0 Note Initiated On: 10/03/2024 11:34 AM
--- NOTE | 2024-10-03 12:53 | POSTOPAN2_ITS ---
Anesthesia Postop Eval I Sum Postop Eval Completion status Anesthesia document: Postop Eval 1 completed: Yes Anesthesia Postop Eval I Summary Anesthesia Postop Eval I Summary: Anesthesia Postop Eval I: Assessment Summary Airway patent Yes 10/03/24 11:54 MANAGER [email or web address] Spontaneous unlabored Yes 10/03/24 11:54 MANAGER COLLECTION.ADDI respirations Mental status Asleep 10/03/24 11:54 MANAGER COLLECTION.ADDI nausea No 10/03/24 11:54 MANAGER COLLECTION.ADDI Vomiting No 10/03/24 11:54 MANAGER COLLECTION.ADDI Anesthesia Postop Eval I: Fluid Summary Crystalloid volume administer 10 10/03/24 11:54 MANAGER COLLECTION.ADDI (ml) Colloids volume administered ( ml) Blood Product volume administered (ml) Total IV fluid infused 10 10/03/24 11:54 MANAGER COLLECTION.ADDI Anesthesia Postop Eval I: Summary Notes Anesthesia Complication No 10/03/24 11:54 MANAGER COLLECTION.ADDI Anesthesia Complication Comment: Post-operative progress note Anesthesia: Postop Eval II Evaluation Mental status: Awake Pain Level: 0 nausea: No Vomiting: No
--- NOTE | 2024-10-03 12:53 | PCM.POSTANE2 ---
Anesthesia Postop Eval I Sum Postop Eval Completion status Anesthesia document: Postop Eval 1 completed: Yes Anesthesia Postop Eval I Summary Anesthesia Postop Eval I Summary: Anesthesia Postop Eval I: Assessment Summary Airway patent Yes 10/03/24 11:54 TELEPHONIC NURSE CASE MANAGER.[email or web address] Spontaneous unlabored Yes 10/03/24 11:54 TELEPHONIC NURSE CASE MANAGER.ADDI respirations Mental status Asleep 10/03/24 11:54 TELEPHONIC NURSE CASE MANAGER.ADDI nausea No 10/03/24 11:54 TELEPHONIC NURSE CASE MANAGER.ADDI Vomiting No 10/03/24 11:54 TELEPHONIC NURSE CASE MANAGER.ADDI Anesthesia Postop Eval I: Fluid Summary Crystalloid volume administer 10 10/03/24 11:54 TELEPHONIC NURSE CASE MANAGER.ADDI (ml) Colloids volume administered ( ml) Blood Product volume administered (ml) Total IV fluid infused 10 10/03/24 11:54 TELEPHONIC NURSE CASE MANAGER.ADDI Anesthesia Postop Eval I: Summary Notes Anesthesia Complication No 10/03/24 11:54 TELEPHONIC NURSE CASE MANAGER.ADDI Anesthesia Complication Comment: Post-operative progress note Anesthesia: Postop Eval II Evaluation Mental status: Awake Pain Level: 0 nausea: No Vomiting: No
== END 2024-10-03 12:15 | disposition home or self-care (01) ==
LOC: EN 10:26 → AC 10:27
PROVIDERS: PCP Internal Medicine; Referring Provider Internal Medicine; Visit Provider Internal Medicine Gastroenterology
PROC: 0DJ08ZZ Inspection of Upper Intestinal Tract, Via Natural or Artificial Opening Endoscopic (ICD-10-PCS; CPT 43235; principal; 2024-10-03 11:25)
DX: K29.70 Gastritis, unspecified, without bleeding (principal); C56.9 Malignant neoplasm of unspecified ovary; J44.9 Chronic obstructive pulmonary disease, unspecified; I48.0 Paroxysmal atrial fibrillation; K31.89 Other diseases of stomach and duodenum; D64.9 Anemia, unspecified; Z80.0 Family history of malignant neoplasm of digestive organs; Z79.01 Long term (current) use of anticoagulants
CPT/HCPCS: 44361; 88305; 88342; A4216

== ENCOUNTER 2024-10-23 23:59 | Emergency (ER) | payer MEDICARE, SELFPAY ==
[2024-10-24] VITALS (12 sets, daily range): BP systolic 110–143; BP diastolic 42–83; PULSE 55–91; RESP 16–18; TEMP 36.6–36.9; O2SAT 92–100; BMI 29.4
--- NOTE | 2024-10-24 01:01 | CT_ITS ---
PROCEDURE: ABDOMEN/PELVIS WITHOUT CONT REASON FOR EXAM: Nausea vomiting, diarrhea TECHNIQUE: Abdomen and pelvis CT without intravenous contrast. Coronal and sagittal reformatted images IV CONTRAST: None COMPARISON: 09/04/2024 FINDINGS: There is now patchy opacity at the left base with appearance of bronchial wall thickening and small tree-in-bud nodular densities suggesting possibility of bronchitis and small airways disease, atypical etiology. No significant interval change in 1 cm noncalcified subpleural pulmonary nodule at the right base adjacent to the hemidiaphragm. Suggestion of small hiatal hernia. There is again note of a similar area of transition from mildly dilated small bowel to collapsed bowel beyond at area of ventral hernia and area of omental caking consistent with degree of bowel obstructive change. Overall the degree of small-bowel dilation leading to the transition point is less than on the prior study and previous interloop areas of free fluid not seen on the current study. No free air. Trace right pleural effusion. Overall there appears to be interval increase in the degree of soft tissue component of the omental caking for example current axial image 108 compared to prior study of axial 115 consistent with advancing metastatic disease. There is also appearance of soft tissue nodularity at the omentum for example previously 1.5 cm, currently 1.9 cm axial 65. Several scattered areas of peritoneal soft tissue nodularity consistent with peritoneal implants again noted. No significant interval change in appearance of the liver, spleen, adrenal glands, kidneys or pancreas on this current noncontrast study. Diverticulosis again noted without evidence of diverticulitis. The bladder is mostly collapsed. Multilevel spondylosis/discogenic change with areas of central and foraminal narrowing again noted. CT/Abdomen/Pelvis without Cont IMPRESSION: Overall when compared to the prior examination of 09/04/2024 there is similar a ppearance of small-bowel transition at area of ventral hernia and area of adjacent increasing omental metastatic disease consi stent with degree of small-bowel obstructive process although the degree of small-bowel dilation leading to the transition i s currently less than on the prior study. No free air. Evidence of omental caking and implants with peritoneal implants again seen wit h evidence of interval progression, disease worsening as above. Again note of noncalcified pulmonary nodule at the right base. Changes at the left base may represent bronchitis and small airways disease. One or more dose reduction techniques were used (e.g., Automated exposure contr ol, adjustment of the mA and/or kV according to patient size, use of iterative reconstruction technique). Reading Location: [id number]
--- NOTE | 2024-10-24 01:09 | EX.ED.DYSGE1 ---
HPI History of Present Illness Chief Complaint: Nausea/Vomiting/Diarrhea Informant: patient and family Narrative Narrative: Presents sudden onset vomiting 9 PM multiple episodes no hematemesis. Had diarrhea at the same time. Similar symptoms a month ago when she was diagnosed with bowel obstruction. History ovarian cancer followed by Dr. Logan Clark at [facility]. This diagnosed 5 years ago slow-growing. She states no surgical intervention conservative treatment for 7 days. This cancer is found when she had hernia surgery from obstruction 5 years ago. Denies abdominal distention or pain. Currently denies any nausea. Prior similar symptoms: Yes PFSH PFS Medical History Ovarian cancer Hyperlipemia Paroxysmal atrial fibrillation Chronic anticoagulation Chronic anticoagulation Anemia Bladder prolapse History of cardioversion Cardiology follow-up encounter Cellulitis Multiple thyroid nodules Multiple thyroid nodules NAFLD (nonalcoholic fatty liver disease) Diarrhea Steatosis Hepatomegaly Non-smoker Shortness of breath on exertion COPD (chronic obstructive pulmonary disease) Recurrent ventral incisional hernia Thyroid nodule Right lower lobe pulmonary nodule Atrial fibrillation with rapid ventricular response (10/12/20) Nonrheumatic mitral valve stenosis with insufficiency Essential (primary) hypertension Peritoneal carcinomatosis Ovarian cancer Cholelithiasis Chronic cholecystitis Calculus of gallbladder with chronic cholecystitis without obstruction Vitamin D deficiency Carpal tunnel syndrome, bilateral Bilateral carotid artery stenosis Asthma Fatty liver Sciatica Osteopenia Paresthesia Home Medications ?Medication ?Instructions ?Recorded ?Last Taken ?Type calcium carbonate (Tums) 200 mg PO DAILY supplement 10/09/17 Unknown History rosuvastatin 5 mg tablet (Crestor) 5 mg PO SUMOWEFR CHOLESTEROL 10/09/17 10/23/23 History coenzyme Q10 100 mg capsule 100 mg PO DAILY Supplement 10/23/20 Unknown History cholecalciferol (vitamin D3) 50 7,000 unit PO DAILY supplement 03/16/23 Unknown History mcg (2,000 unit) capsule ascorbic acid (vitamin C) 1,000 mg 2 g PO DAILY Supplement 09/23/23 Unknown History tablet (C-1000) zinc 50 mg capsule 50 mg PO DAILY Supplement 09/23/23 Unknown History bupropion HCl 150 mg 24 hr tablet, 150 mg PO DAILY Mood 10/25/23 Unknown History extended release ferrous sulfate 325 mg (65 mg 325 mg PO DAILY Supplement 10/25/23 Unknown History iron) tablet (FeroSul) trametinib 10 mg PO DAILY 10/25/23 Unknown History folic acid 1 mg tablet 1 mg PO DAILY #90 tabs 10/29/23 Unknown Rx sulfasalazine 500 mg 1 g (2 x 500 mg) PO DAILY #60 tabs 10/29/23 Unknown Rx tablet,delayed release diltiazem HCl 120 mg 120 mg PO Q12H Heart #180 caps 05/13/24 09/20/24 08:40 Rx capsule,extended release 24 hr betamethasone, augmented 0.05 % applic topical BID PRN PRN skin 06/28/24 Unknown History topical cream irritation ondansetron 4 mg disintegrating 4 mg PO Q8H PRN PRN Nausea #10 tabs 06/28/24 Unknown Rx tablet metoprolol tartrate 50 mg tablet 50 mg PO BID BP #180 tabs 08/04/24 09/20/24 08:30 Rx amiodarone 200 mg tablet 200 mg PO DAILY Heart Rhythm 09/20/24 09/20/24 08:30 History acetaminophen 500 mg tablet 1,000 mg (2 x 500 mg) PO Q6H PRN 09/30/24 Unknown Rx PRN Pain Score 1-10 #0 tabs apixaban 5 mg tablet (Eliquis) 5 mg PO BID 30 days #60 tabs 09/30/24 Unknown Rx furosemide 40 mg tablet 40 mg PO BIDLX 30 days #60 tabs 09/30/24 Unknown Rx hydrocortisone 2.5 % topical cream 1 applic topical BID 30 days #45 09/30/24 Unknown Rx grams metoclopramide HCl 5 mg tablet 5 mg PO TID 30 days #90 tabs 09/30/24 Unknown Rx potassium chloride 20 mEq 20 meq PO BID 30 days #60 tabs 09/30/24 Unknown Rx tablet,extended release(part/cryst) Allergy/AdvReac Type Severity Reaction Status Date / Time morphine AdvReac Severe Nausea/Vom/ Verified 10/24/24 00:01 Diarrhea penicillin G AdvReac Unknown Unknown Verified 10/24/24 00:01 Family History Father CAD (coronary artery disease) Diabetes Mother Lymphoma Sister Colon cancer Brother Colon cancer Surgical History History of rectal polypectomy History of hysterectomy with unilateral oophorectomy (1983) History of cholecystectomy (10/23/17) H/O nasal polypectomy History of colonoscopy History of hernia repair (10/2020) History of shoulder replacement (2019) History of exploratory laparotomy (10/2020) Status post laser ablation of incompetent vein Social History household members: none and other details: . Smoking Status: Never smoker second hand exposure: No alcohol intake: never details: rare substance use type: does not use caffeine: No what type of physical activity do you participate in: walking frequency: 3-4 times per week duration: < 15 minutes/day patricia/zoroastrian: Pentecostalism seatbelt use: always do you feel safe at home: Yes ROS ROS ED Constitutional Constitutional ED: Denies chills, fever(s) or sweats ENT ENT ED: Denies sore throat Cardiovascular Cardiovascular: Denies chest pain, leg edema, palpitations or racing heartbeat Respiratory/Chest Respiratory/Chest: Denies cough, dyspnea or dyspnea on exertion Gastrointestinal Gastrointestinal: Reports vomiting; Denies abdominal pain, diarrhea or nausea Genitourinary Genitourinary ED: Denies dysuria, hematuria or urinary frequency Musculoskeletal Musculoskeletal: Denies back pain, extremity pain or neck pain Integumentary Denies rash or wounds Neurologic Neurologic: Denies headache(s), paresthesias or weakness EXAM Physical Exam Const Vital Signs: 10/24/24 01:17 10/24/24 01:18 10/24/24 02:00 Temperature 98.4 F Temperature Source Oral Pulse Rate 71 71 56 L Respiratory Rate 18 18 18 Blood Pressure 126/55 H 126/55 H 114/45 L Blood Pressure Mean 78 78 68 Pulse Ox 99 99 96 Oxygen Delivery Method Room Air Room Air Room Air 10/24/24 02:24 10/24/24 03:00 10/24/24 04:00 Temperature 98.3 F Temperature Source Oral Pulse Rate 55 L 74 91 Respiratory Rate 18 18 18 Blood Pressure 114/44 L 110/44 L 111/42 L Blood Pressure Mean 67 66 65 Pulse Ox 96 95 98 Oxygen Delivery Method Room Air Room Air 10/24/24 04:24 10/24/24 05:00 10/24/24 05:00 Temperature 98.3 F 97.9 F Temperature Source Oral Temporal Pulse Rate 91 62 69 Respiratory Rate 18 18 18 Blood Pressure 111/42 L 134/51 H 126/57 H Blood Pressure Mean 65 78 80 Pulse Ox 98 94 92 Oxygen Delivery Method Room Air Room Air 10/24/24 06:00 10/24/24 06:33 Temperature 97.9 F Temperature Source Pulse Rate 69 69 Respiratory Rate 16 16 Blood Pressure 125/57 H 125/57 H Blood Pressure Mean 79 79 Pulse Ox 92 94 Oxygen Delivery Method Room Air Positive well nourished and well developed General Appearance ED: well developed and NAD HEENT Reports moist mucous membranes normocephalic and atraumatic Eyes General Eye ED: Yes normal appearance of both eyes Neck full ROM Chest Wall Chest: Negative for tenderness Resp normal respiratory effort and normal air movement Effort and Inspection: symmetric chest movement; Negative for respiratory distress Cardio regular rate, regular rhythm and no murmurs Peripheral Pulses: pulses 2+ throughout GI non-tender GI Narrative: Normal distention, nontender. Palpation: Negative for guarding or rebound tenderness present Extremity normal to inspection General Extremety ED: Negative for edema or tenderness General Extremity: Negative for edema Neuro oriented x3 and no sensory deficits noted Sensorium / Orientation: awake and alert Skin no rashes or lesions noted and no wounds MDM MDM MDM Narrative Medical decision making narrative: Interventions / MDM: Differential diagnosis: Ventral hernia, bowel obstruction, history of ovarian cancer Diagnosis considered but do not suspect: N/A My EKG interpretation: N/A Imaging independently reviewed and interpreted by myself: CT abdomen pelvis without contrast: Ventral hernia with concern degree of small bowel obstruction External documents reviewed: N/A Test considered but not ordered:N/A ED course: Currently no nausea. No abdominal pain. History of similar bowel obstruction a month ago. IV established for fluids basic labs CT scan for further evaluation. 0400: Patient labs white count 27.9 creatinine 0.96. I added lactic acid blood cultures. Lactic acid returned at 1.6. CT scan with concerns for ventral hernia with bowel obstruction however reported less significant than a month ago. Daughter reports she had an NG tube for a week with no surgical intervention. Stomach appears decompressed on my examination of the CT scan. She was covered with antibiotics with her leukocytosis. 0420: I spoke with [facility] Transfer line as she required transfer a month ago with concerning large ventral hernia. They spoke with general surgery there Dr. Dela Cruz who did request an NG tube which was ordered. They spoke with ED physician Dr. Vega for acceptance to the ED. Patient and family updated will work on transfer after NG tube placement. Re-evaluation: stable Disposition discussed with patient/family/significant other: Patient and family Case discussed with consulting clinician: [facility]. This note was generated with [employer] dictation software. It may contain incorrect words, spelling, and punctuation that were not noted in checking the note before signing. Lab Data Attestation: I reviewed the patient's lab results. Labs: Laboratory Results - last 24 hr 10/24/24 10/24/24 01:19 03:24 WBC 27.9 H RBC 4.09 L Hgb 11.6 L Hct 37.6 MCV 91.9 MCH 28.4 MCHC 30.9 L RDW Std Deviation 48.4 H RDW Coeff of Jaciel 14.4 Plt Count 411 MPV 8.9 Immature Gran % (Auto) 0.600 Neut % (Auto) 89.8 H Lymph % (Auto) 3.8 L Yell % (Auto) 5.1 Eos % (Auto) 0.5 Baso % (Auto) 0.2 Absolute Neuts (auto) 25.1 H Absolute Lymphs (auto) 1.05 Nucleated RBC % 0 Sodium 141 Potassium 3.8 Chloride 105 Carbon Dioxide 29.0 Anion Gap 7 BUN 24 H Creatinine 0.96 Estim Creat Clear Calc 51.54 Est GFR (MDRD) Af Amer 72 Est GFR (MDRD) Non-Af 59 L BUN/Creatinine Ratio 25.1 H Glucose 148 H Lactic Acid 1.6 Calcium 9.4 Radiography Diagnostic Testing: Clinical Impression(s) from Imaging Studies Abdomen/Pelvis CT 10/24/24 01:01 IMPRESSION: Overall when compared to the prior examination of 09/04/2024 there is similar appearance of small-bowel transition at area of ventral hernia and area of adjacent increasing omental metastatic disease consistent with degree of small-bowel obstructive process although the degree of small-bowel dilation leading to the transition is currently less than on the prior study. No free air. Evidence of omental caking and implants with peritoneal implants again seen with evidence of interval progression, disease worsening as above. Again note of noncalcified pulmonary nodule at the right base. Changes at the left base may represent bronchitis and small airways disease. One or more dose reduction techniques were used (e.g., Automated exposure control, adjustment of the mA and/or kV according to patient size, use of iterative reconstruction technique). Reading Location: [facility] KUB X-Ray 10/24/24 04:11 IMPRESSION: The study is centered at the diaphragms with the lower abdomen and pelvis excluded from imaging. Nasogastric tube tip at the body of the stomach.. Reading Location: [facility] Chest X-Ray 10/24/24 04:50 IMPRESSION: Nasogastric tube tip within the stomach. Mild patchy opacity at the left base may represent atelectasis or developing infiltrate. The right lung appears clear. . Reading Location: [facility] Critical Care Time Critical Care Time: Yes Critical care time (excluding procedures): 30-74 minutes, Discussing w/Patient &/or Family/Criminal Justice Instructor, Discussing w/Consultants, Arranging Admission or Transfer, Performing Direct Patient Care at Bedside and - (35 minutes) Discharge Plan Triage Chief Complaint: Nausea/Vomiting/Diarrhea ED Provider: Werner Xiong Dx/Rx/DC Orders Clinical Impression: Hx SBO, Vomiting, Leukocytosis, History of ovarian cancer Prescriptions: No Action rosuvastatin [Crestor] 5 mg tablet 5 mg PO SUMOWEFR calcium carbonate [Tums] 200 mg calcium (500 mg) tablet,chewable 200 mg PO DAILY cholecalciferol (vitamin D3) 50 mcg (2,000 unit) capsule 7,000 unit PO DAILY coenzyme Q10 100 mg capsule 100 mg PO DAILY zinc 50 mg capsule 50 mg PO DAILY ascorbic acid (vitamin C) [C-1000] 1,000 mg tablet 2 g PO DAILY bupropion HCl 150 mg tablet extended release 24 hr 150 mg PO DAILY ferrous sulfate [FeroSul] 325 mg (65 mg iron) tablet 325 mg PO DAILY trametinib [Mekinist] 10 mg PO DAILY betamethasone, augmented 0.05 % cream topical BID PRN PRN (Reason: skin irritation) ondansetron 4 mg tablet,disintegrating 4 mg PO Q8H PRN PRN (Reason: Nausea) Qty: 10 0RF amiodarone 200 mg tablet 200 mg PO DAILY furosemide 40 mg Tablet 40 mg PO BIDLX 30 Days Qty: 60 0RF acetaminophen 500 mg Tablet 1,000 mg PO Q6H PRN PRN (Reason: Pain Score 1-10) Qty: 0 0RF metoclopramide HCl 5 mg Tablet 5 mg PO TID 30 Days Qty: 90 0RF hydrocortisone 2.5 % Cream 1 applic topical BID 30 Days Qty: 45 0RF Protocol: *Topical Application Instructions APPLICATION INSTRUCTIONS: Apply to affected area two times a day Eliquis 5 mg Tablet 5 mg PO BID 30 Days Qty: 60 0RF potassium chloride 20 mEq Tablet,Er Particles/Crystals 20 meq PO BID 30 Days Qty: 60 0RF sulfasalazine 500 mg tablet,delayed release (DR/EC) 1 g PO DAILY Qty: 60 11RF folic acid 1 mg tablet 1 mg PO DAILY Qty: 90 3RF diltiazem HCl 120 mg capsule,extended release 24hr 120 mg PO Q12H Qty: 180 3RF metoprolol tartrate 50 mg tablet 50 mg PO BID Qty: 180 3RF Primary Care Provider: Gini Ojeda Referrals: Gini Ojeda DO [Primary Care Provider] - Print Language: Samoan Disposition Disposition: DC/Tx to Another Type of HCF Discharge Location: [facility] Discharge Date/Time: 10/24/24 06:56
[2024-10-24] MEDS: 0.9% Normal Saline (500mL Bag) 500 ML 1000 ML IV (01:17)
[2024-10-24 01:29] LABS: Absolute Lymphocyte Count 1.05 X10^3/uL (0.83-4.51); Absolute Neutrophil Count 25.1 X10^3/uL (2.0-7.7); Basophil# 0.05 X10^3/uL; Basophil% 0.2 % (0-1); Eosinophil# 0.15 X10^3/uL; Eosinophils% 0.5 % (0-5); Hematocrit 37.6 % (37-47); Hemoglobin 11.6 g/dL (12.0-15.0); Lymphocyte # 1.05 X10^3/ul (0.83-4.51); Lymphocyte % 3.8 % (19-41); Mean Corp Hgb Conc 30.9 g/dL (32-36); Mean Corpuscular Hgb 28.4 pg (27.0-32.0); Mean Corpuscular Volume 91.9 fL (81-99); Mean Platelet Vol. 8.9 fl (6.2-12.0); Monocyte# 1.42 X10^3/uL; Monocyte% 5.1 % (0-10); NRBC Flagged by Analyzer 0 % (0-5); Neutrophil # 25.07 X10^3/uL (2.7-7.7); Neutrophil % 89.8 % (47-70); POSITIVE DIFFERENTIAL YES; Platelet Count 411 K/mm3 (150-450); RBC Distribution Width CV 14.4 % (11.6-14.6); RBC Distribution Width SD 48.4 fl (35.1-43.9); Red Blood Count 4.09 M/mm3 (4.2-5.4); White Blood Count 27.9 K/mm3 (4.4-11.0)
[2024-10-24 01:45] LABS: Anion Gap 7 (5-15); BUN 24 mg/dL (7-18); BUN/Creat Ratio 25.1 RATIO (10-20); Calcium,Total 9.4 mg/dL (8.5-10.1); Chloride 105 mmol/L (98-107); Creatinine, Serum 0.96 mg/dL (0.55-1.02); EST Glomerular Filtration Rate 59 mL/min (>60); Est Glom Filt Rate - Afr Amer 72 mL/min (>60); Estimated Creatinine Clearance 51.54 ml/min; Glucose 148 mg/dL (74-106); Potassium 3.8 mmol/L (3.5-5.1); Sodium Level 141 mmol/L (136-145)
[2024-10-24 02:14] LABS: Differential Indicated SCAN CRITERIA MET
[2024-10-24 03:58] LABS: Lactic Acid 1.6 mmol/L (0.4-1.9)
--- NOTE | 2024-10-24 04:11 | RAD_ITS ---
PROCEDURE: ABDOMEN SINGLE VIEW (PORTABLE) REASON FOR EXAM: Nasogastric tube insertion TECHNIQUE: Single view abdomen. COMPARISON: None FINDINGS: The study is centered at the diaphragms with the lower abdomen and pelvis excluded from imaging. Nasogastric tube tip at the body of the stomach. Thoracolumbar curvature and lumbar spondylosis/discogenic change. RAD/Abdomen Single View (Portable) IMPRESSION: The study is centered at the diaphragms with the lower abdomen and pelvis exclu ded from imaging. Nasogastric tube tip at the body of the stomach.. Reading Location: [id number]
[2024-10-24] MEDS: Oxymetazoline 0.05% 1 SPRAY SPRAY.BTL 2 SPRAY NASAL (04:37)
--- NOTE | 2024-10-24 04:50 | RAD_ITS ---
PROCEDURE: CHEST 1 VIEW (PORTABLE) REASON FOR EXAM: Leukocytosis TECHNIQUE: Frontal view of the chest. COMPARISON: 06/28/2024 FINDINGS: Nasogastric tube tip within the stomach. Mild patchy opacity at the left base may represent atelectasis or developing infiltrate. The right lung appears clear. Pulmonary vascularity appears within limits. The cardiac and mediastinal contours appear within limits. Status post right shoulder replacement. RAD/Chest 1 View (Portable) IMPRESSION: Nasogastric tube tip within the stomach. Mild patchy opacity at the left base may represent atelectasis or developing in filtrate. The right lung appears clear. . Reading Location: [id number]
[2024-10-24] MEDS: Cefotetan 2 GM in 0.9% Normal Saline (100mL MB+) 100 ML IV (05:22)
== END 2024-10-24 06:56 | disposition other institution (70) ==
PROVIDERS: Emergency Provider Emergency Medicine; PCP Internal Medicine; Visit Provider Emergency Medicine
DX: R11.2 Nausea with vomiting, unspecified (principal); C56.9 Malignant neoplasm of unspecified ovary; J44.9 Chronic obstructive pulmonary disease, unspecified; D72.829 Elevated white blood cell count, unspecified
CPT/HCPCS: 71045; 74018; 74176; 80048; 83605; 85025; 87040; 96365; 99285; A4216

== ENCOUNTER 2025-01-09 23:45 | Emergency (ER) | payer MEDICARE, SELFPAY ==
[2025-01-09 23:46] VITALS: BP 111/55; PULSE 74; RESP 18; TEMP 37.1; O2SAT 99
[2025-01-09 23:58] VITALS: BP 126/59; PULSE 73; RESP 16; O2SAT 98; BMI 29.6
[2025-01-10 00:53] VITALS: BP 92/58; PULSE 74; RESP 16; O2SAT 99
[2025-01-10 01:00] VITALS: BP 106/57; PULSE 67; RESP 16; O2SAT 99
--- NOTE | 2025-01-10 01:10 | EKG12_ITS ---
Test Reason : DYSRHYTHMIA Blood Pressure : */* mmHG Vent. Rate : 76 BPM Atrial Rate : 76 BPM P-R Int : 178 ms QRS Dur : 82 ms QT Int : 412 ms P-R-T Axes : 68 13 25 degrees QTcB Int : 463 ms Normal sinus rhythm Nonspecific ST abnormality Abnormal ECG Confirmed by Alo Huerta ([id number]), editorial assistant MEGHAN RICHARDSON ([id number]) on 01/10/2025 9:19:37 AM Referred By: Confirmed By: Alo Huerta
[2025-01-10 01:23] LABS: Absolute Lymphocyte Count 1.76 X10^3/uL (0.83-4.51); Absolute Neutrophil Count 5.3 X10^3/uL (2.0-7.7); Basophil# 0.02 X10^3/uL; Basophil% 0.3 % (0-1); Eosinophil# 0.04 X10^3/uL; Eosinophils% 0.5 % (0-5); Hematocrit 27.1 % (37-47); Hemoglobin 8.5 g/dL (12.0-15.0); Lymphocyte # 1.76 X10^3/ul (0.83-4.51); Lymphocyte % 22.6 % (19-41); Mean Corp Hgb Conc 31.4 g/dL (32-36); Mean Corpuscular Hgb 27.3 pg (27.0-32.0); Mean Corpuscular Volume 87.1 fL (81-99); Mean Platelet Vol. 9.4 fl (6.2-12.0); Monocyte# 0.58 X10^3/uL; Monocyte% 7.5 % (0-10); NRBC Flagged by Analyzer 0 % (0-5); Neutrophil # 5.33 X10^3/uL (2.7-7.7); Neutrophil % 68.5 % (47-70); POSITIVE MORPHOLOGY YES; Platelet Count 194 K/mm3 (150-450); RBC Distribution Width CV 20.8 % (11.6-14.6); RBC Distribution Width SD 64.1 fl (35.1-43.9); Red Blood Count 3.11 M/mm3 (4.2-5.4); White Blood Count 7.8 K/mm3 (4.4-11.0)
[2025-01-10 01:24] LABS: Differential Indicated SCAN CRITERIA MET
[2025-01-10 01:53] LABS: Anion Gap 12 (5-15); BUN 17 mg/dL (4-19); BUN/Creat Ratio 24.9 RATIO (10-20); Calcium,Total 9.4 mg/dL (7.6-11.0); Carbon Dioxide 28.1 mmol/L (21.0-32.0); Chloride 99 mmol/L (98-108); EST Glomerular Filtration Rate 87 (>60); Glucose 90 mg/dL (70-99); Magnesium 1.4 mg/dL (1.5-2.2); Potassium 4.2 mmol/L (3.3-5.1); Sodium Level 139 mmol/L (133-145)
[2025-01-10 01:54] LABS: Troponin T High Sensitivity 52 ng/L (<=14)
[2025-01-10 01:57] LABS: Acanthocytes RARE; Anisocytosis 2+; Differential Comment SCANNED; Platelet Estimate ADEQUATE (ADEQ)
[2025-01-10 01:58] LABS: Schistocytes RARE
[2025-01-10 02:00] VITALS: BP 128/56; PULSE 69; RESP 16; O2SAT 99
[2025-01-10 02:14] VITALS: BP 128/56; PULSE 69; RESP 16; TEMP 37.1; O2SAT 99
--- NOTE | 2025-01-10 02:14 | EX.ED.DYSGE1 ---
HPI History of Present Illness Chief Complaint: Abn Labs Informant: patient and friend Narrative Narrative: Patient is an 79-year-old female with past medical history of hypertension hyperlipidemia paroxysmal atrial fibrillation currently on Eliquis. Patient states she went to her family doctor today for regular checkup. While there it was noted she was in A-fib with RVR as her heart rate was in the low to mid 100s. Despite the tachycardia reportedly her other vitals were stable and she did not feel bad. However because of the breakthrough A-fib she was sent for outpatient laboratory study. The patient does state that she did not take her morning medication prior to the office visit. She states she received a phone call reporting her hemoglobin is low at 8.5 and her troponin was slightly elevated at 46 and to come to the ER for further evaluation. Patient states that she has recently been receiving chemotherapy and denies any hematemesis or hematochezia. She also states that she took her medications as she was supposed to after the checkup with her family doctor and at this time does not have palpitations chest pain shortness of breath headache or change in vision. However because of the 2 lab abnormalities she presents to the ER as directed [facility] Medical History (Updated 01/10/25 @ 06:[address] Daniel De Jesus, DO) Restless leg syndrome Chronic anticoagulation Ovarian cancer Chronic anticoagulation Anemia Bladder prolapse History of cardioversion Cardiology follow-up encounter Cellulitis Multiple thyroid nodules Multiple thyroid nodules NAFLD (nonalcoholic fatty liver disease) Diarrhea Steatosis Hepatomegaly Non-smoker Shortness of breath on exertion COPD (chronic obstructive pulmonary disease) Recurrent ventral incisional hernia Paroxysmal atrial fibrillation Thyroid nodule Right lower lobe pulmonary nodule Atrial fibrillation with rapid ventricular response (10/12/20) Nonrheumatic mitral valve stenosis with insufficiency Essential (primary) hypertension Peritoneal carcinomatosis Ovarian cancer Cholelithiasis Chronic cholecystitis Calculus of gallbladder with chronic cholecystitis without obstruction Vitamin D deficiency Hyperlipemia Carpal tunnel syndrome, bilateral Bilateral carotid artery stenosis Asthma Fatty liver Sciatica Osteopenia Paresthesia Home Medications ?Medication ?Instructions ?Recorded ?Last Taken ?Type calcium carbonate (Tums) 200 mg PO DAILY supplement 10/09/17 Unknown History rosuvastatin 5 mg tablet (Crestor) 5 mg PO SUMOWEFR CHOLESTEROL 10/09/17 10/23/23 History coenzyme Q10 100 mg capsule 100 mg PO DAILY Supplement 10/23/20 Unknown History cholecalciferol (vitamin D3) 50 7,000 unit PO DAILY supplement 03/16/23 Unknown History mcg (2,000 unit) capsule ascorbic acid (vitamin C) 1,000 mg 2 g PO DAILY Supplement 09/23/23 Unknown History tablet (C-1000) zinc 50 mg capsule 50 mg PO DAILY Supplement 09/23/23 Unknown History bupropion HCl 150 mg 24 hr tablet, 150 mg PO DAILY Mood 10/25/23 Unknown History extended release ferrous sulfate 325 mg (65 mg 325 mg PO DAILY Supplement 10/25/23 Unknown History iron) tablet (FeroSul) trametinib 10 mg PO DAILY 10/25/23 Unknown History sulfasalazine 500 mg 1 g (2 x 500 mg) PO DAILY #60 tabs 10/29/23 Unknown Rx tablet,delayed release diltiazem HCl 120 mg 120 mg PO Q12H Heart #180 caps 05/13/24 09/20/24 08:40 Rx capsule,extended release 24 hr betamethasone, augmented 0.05 % applic topical BID PRN PRN skin 06/28/24 Unknown History topical cream irritation ondansetron 4 mg disintegrating 4 mg PO Q8H PRN PRN Nausea #10 tabs 06/28/24 Unknown Rx tablet metoprolol tartrate 50 mg tablet 50 mg PO BID BP #180 tabs 08/04/24 09/20/24 08:30 Rx amiodarone 200 mg tablet 200 mg PO DAILY Heart Rhythm 09/20/24 09/20/24 08:30 History acetaminophen 500 mg tablet 1,000 mg (2 x 500 mg) PO Q6H PRN 09/30/24 Unknown Rx PRN Pain Score 1-10 #0 tabs apixaban 5 mg tablet (Eliquis) 5 mg PO BID 30 days #60 tabs 09/30/24 Unknown Rx furosemide 40 mg tablet 40 mg PO BIDLX 30 days #60 tabs 09/30/24 Unknown Rx hydrocortisone 2.5 % topical cream 1 applic topical BID 30 days #45 09/30/24 Unknown Rx grams metoclopramide HCl 5 mg tablet 5 mg PO TID 30 days #90 tabs 09/30/24 Unknown Rx potassium chloride 20 mEq 20 meq PO BID 30 days #60 tabs 09/30/24 Unknown Rx tablet,extended release(part/cryst) folic acid 1 mg tablet 1 mg PO DAILY #90 tabs 11/22/24 Unknown Rx prochlorperazine maleate 10 mg 10 mg PO Q6H PRN PRN anxiety 01/09/25 Unknown History tablet sulfamethoxazole 800 1 tab PO BID 01/09/25 Unknown History mg-trimethoprim 160 mg tablet gabapentin 300 mg capsule 300 mg PO QHS 01/10/25 Unknown History nitrofurantoin 1 cap PO BID 01/10/25 Unknown History monohydrate/macrocrystals 100 mg capsule pantoprazole 20 mg tablet,delayed 20 mg PO DAILY 01/10/25 Unknown History release Allergy/AdvReac Type Severity Reaction Status Date / Time morphine AdvReac Severe Nausea/Vom/ Verified 10/24/24 00:01 Diarrhea penicillin G AdvReac Unknown Unknown Verified 10/24/24 00:01 Family History Father CAD (coronary artery disease) Diabetes Mother Lymphoma Sister Colon cancer Brother Colon cancer Surgical History History of rectal polypectomy History of hysterectomy with unilateral oophorectomy (1983) History of cholecystectomy (10/23/17) H/O nasal polypectomy History of colonoscopy History of hernia repair (10/2020) History of shoulder replacement (2019) History of exploratory laparotomy (10/2020) Status post laser ablation of incompetent vein Social History household members: none and other details: . Smoking Status: Never smoker second hand exposure: No alcohol intake: never details: rare substance use type: does not use caffeine: No what type of physical activity do you participate in: walking frequency: 3-4 times per week duration: < 15 minutes/day patricia/mandaeism: Worship seatbelt use: always do you feel safe at home: Yes ROS ROS ED Constitutional Constitutional ED: Denies chills or fever(s) Eyes Eyes: Denies blurry vision or change in vision ENT ENT ED: Denies sore throat Cardiovascular Cardiovascular: Reports palpitations, racing heartbeat and other Details: Patient reports palpitations and heart racing more earlier in the day she has no symptoms at this time in the ER ; Denies chest pain Respiratory/Chest Respiratory/Chest: Denies cough or dyspnea Gastrointestinal Gastrointestinal: Denies abdominal pain, diarrhea, nausea or vomiting Genitourinary Genitourinary ED: Denies dysuria or hematuria Musculoskeletal Musculoskeletal: Denies myalgias Integumentary Reports Abrasions Neurologic Neurologic: Denies headache(s) Hematologic/Lymphatic Hematologic/Lymphatic: Reports easy bleeding and easy bruising EXAM Physical Exam Const Vital Signs: 01/09/25 23:46 01/09/25 23:58 01/09/25 23:58 Temperature 98.7 F Temperature Source Oral Pulse Rate 74 73 Respiratory Rate 18 16 Respiratory Effort Normal Respiratory Pattern Normal Blood Pressure 111/55 L 126/59 H Blood Pressure Mean 73 81 Pulse Ox 99 98 Oxygen Delivery Method Room Air Room Air 01/10/25 00:53 01/10/25 01:00 01/10/25 02:00 Temperature Temperature Source Pulse Rate 74 67 69 Respiratory Rate 16 16 16 Respiratory Effort Respiratory Pattern Blood Pressure 92/58 L 106/57 L 128/56 H Blood Pressure Mean 69 73 80 Pulse Ox 99 99 99 Oxygen Delivery Method Room Air Room Air Room Air 01/10/25 02:14 Temperature 98.7 F Temperature Source Pulse Rate 69 Respiratory Rate 16 Respiratory Effort Respiratory Pattern Blood Pressure 128/56 H Blood Pressure Mean 80 Pulse Ox 99 Oxygen Delivery Method Positive well nourished and well developed General Appearance ED: well developed HEENT HEENT Narrative: Normocephalic atraumatic Eyes PERRL and EOMs intact bilaterally General Eye ED: Yes pale conjunctiva; Negative for scleral icterus Neck supple and no JVD Neck Narrative: No nuchal rigidity or meningeal signs Resp normal respiratory effort and clear to auscultation bilaterally Cardio regular rate and regular rhythm Rate: other Other Details: Radial and carotid pulses are equal and symmetric GI normal to inspection, nondistended, normoactive bowel sounds, non-tender, non-distended and no masses GI Narrative: No voluntary guarding or rigidity or pulsatile mass Auscultation: normoactive bowel sounds Palpation: soft Narrative: Nonbleeding nonthrombosed hemorrhoids are noted Rectal tone is normal Stool is brown in color and Hemoccult negative Extremity normal to inspection Neuro oriented x3, CN's II-XII intact bilaterally and no sensory deficits noted Sensorium / Orientation: alert Motor Exam: strength 5/5 throughout Psych mental status grossly normal Skin Skin Narrative: Stage I-II sacral decubitus ulcer noted along the left medial buttocks without secondary findings to suggest infection MDM MDM MDM Narrative Medical decision making narrative: Patient arrived to ER with stable vitals and was now in normal sinus rhythm. She is currently on Eliquis and my concern for a DVT or PE is low and there is no need for an ultrasound/venous duplex or CTA. The patient is also recently undergone chemotherapy which is most likely the cause for her anemia. However in order to ensure that it is not due to acute blood loss anemia based on her history of blood thinner use rectal exam was performed which was negative. Repeat laboratory values reveal a stable H&H at 8.5 which is above the 7.0 value needed for transfusion. Her initial troponin from outpatient testing was 46 and has been 8 to 10 hours since that level was taken. The new level is only mildly elevated at 52. The fact that it trended up by 6 points over 8 to 10 hours is not clinically significant or concerning as the patient is in normal sinus rhythm without ischemic findings on her EKG and she also does not have any chest discomfort or shortness of breath. Therefore at this time as EKG demonstrates patient is no longer in A-fib with RVR her labs show that her H&H is stable and not requiring a blood transfusion and her troponins are relatively flat I do not feel there is need for further workup in the hospital and she is otherwise safe for discharge. History & Record Review Discussion w/independent historian: Patient and Friend Lab Data Attestation: I reviewed the patient's lab results. Labs: Laboratory Results - last 24 hr 01/10/25 00:15 WBC 7.8 RBC 3.11 L Hgb 8.5 L Hct 27.1 L MCV 87.1 MCH 27.3 MCHC 31.4 L RDW Std Deviation 64.1 H RDW Coeff of Jaciel 20.8 H Plt Count 194 MPV 9.4 Immature Gran % (Auto) 0.600 Neut % (Auto) 68.5 Lymph % (Auto) 22.6 [place]bon % (Auto) 7.5 Eos % (Auto) 0.5 Baso % (Auto) 0.3 Absolute Neuts (auto) 5.3 Absolute Lymphs (auto) 1.76 Nucleated RBC % 0 Differential Comment SCANNED Platelet Estimate ADEQUATE Anisocytosis 2+ Acanthocytes (Spur) RARE Schistocytes RARE Sodium 139 Potassium 4.2 Chloride 99 Carbon Dioxide 28.1 Anion Gap 12 BUN 17 Creatinine 0.70 Estim Creat Clear Calc 62.10 Est GFR (MDRD) Non-Af 87 BUN/Creatinine Ratio 24.9 H Glucose 90 Calcium 9.4 Magnesium 1.4 L Troponin T High Sens 52 H D Discharge Plan Triage Chief Complaint: Abn Labs ED Provider: Daniel De Jesus Dx/Rx/DC Orders Clinical Impression: Paroxysmal atrial fibrillation, Anemia, Decubitus ulcer of sacral region, stage 2, Essential (primary) hypertension, Current use of half-way anticoagulation Instructions: Anemia, AFib Dc, ED Simple Pressure Injury Prescriptions: No Action rosuvastatin [Crestor] 5 mg tablet 5 mg PO SUMOWEFR calcium carbonate [Tums] 200 mg calcium (500 mg) tablet,chewable 200 mg PO DAILY cholecalciferol (vitamin D3) 50 mcg (2,000 unit) capsule 7,000 unit PO DAILY coenzyme Q10 100 mg capsule 100 mg PO DAILY zinc 50 mg capsule 50 mg PO DAILY ascorbic acid (vitamin C) [C-1000] 1,000 mg tablet 2 g PO DAILY bupropion HCl 150 mg tablet extended release 24 hr 150 mg PO DAILY ferrous sulfate [FeroSul] 325 mg (65 mg iron) tablet 325 mg PO DAILY trametinib [Mekinist] 10 mg PO DAILY betamethasone, augmented 0.05 % cream topical BID PRN PRN (Reason: skin irritation) ondansetron 4 mg tablet,disintegrating 4 mg PO Q8H PRN PRN (Reason: Nausea) Qty: 10 0RF amiodarone 200 mg tablet 200 mg PO DAILY furosemide 40 mg Tablet 40 mg PO BIDLX 30 Days Qty: 60 0RF acetaminophen 500 mg Tablet 1,000 mg PO Q6H PRN PRN (Reason: Pain Score 1-10) Qty: 0 0RF metoclopramide HCl 5 mg Tablet 5 mg PO TID 30 Days Qty: 90 0RF hydrocortisone 2.5 % Cream 1 applic topical BID 30 Days Qty: 45 0RF Protocol: *Topical Application Instructions APPLICATION INSTRUCTIONS: Apply to affected area two times a day Eliquis 5 mg Tablet 5 mg PO BID 30 Days Qty: 60 0RF potassium chloride 20 mEq Tablet,Er Particles/Crystals 20 meq PO BID 30 Days Qty: 60 0RF prochlorperazine maleate 10 mg tablet 10 mg PO Q6H PRN PRN (Reason: anxiety) sulfamethoxazole-trimethoprim 800-160 mg tablet 1 tab PO BID pantoprazole 20 mg tablet,delayed release (DR/EC) 20 mg PO DAILY gabapentin 300 mg capsule 300 mg PO QHS nitrofurantoin monohyd/m-cryst 100 mg capsule 1 cap PO BID sulfasalazine 500 mg tablet,delayed release (DR/EC) 1 g PO DAILY Qty: 60 11RF diltiazem HCl 120 mg capsule,extended release 24hr 120 mg PO Q12H Qty: 180 3RF metoprolol tartrate 50 mg tablet 50 mg PO BID Qty: 180 3RF folic acid 1 mg tablet 1 mg PO DAILY Qty: 90 3RF Primary Care Provider: Gini Ojeda Referrals: Gini Ojeda DO [Primary Care Provider] - Activity Restrictions/Additional Instructions: Please continue all of your home medications as directed by your doctor and return to the ER should you have any further concerns Print Language: Cambodian Disposition Disposition: Home, Self Care Discharge Date/Time: 01/10/25 02:27
== END 2025-01-10 02:27 | disposition home or self-care (01) ==
PROVIDERS: Emergency Provider Emergency Medicine; PCP Internal Medicine; Visit Provider Emergency Medicine
DX: I48.0 Paroxysmal atrial fibrillation (principal); L89.152 Pressure ulcer of sacral region, stage 2; J44.9 Chronic obstructive pulmonary disease, unspecified; E78.5 Hyperlipidemia, unspecified; D64.9 Anemia, unspecified; I10 Essential (primary) hypertension; Z79.899 Other long term (current) drug therapy; Z79.01 Long term (current) use of anticoagulants
CPT/HCPCS: 80048; 82274; 83735; 84484; 85025; 93005; 99282; A4216

== ENCOUNTER → 2025-01-09 | Outpatient (CLI) | payer MEDICARE, SELFPAY ==
[2025-01-09 16:22] LABS: Absolute Neutrophil Count 6.5 X10^3/uL (2.0-7.7); Basophil# 0.02 X10^3/uL; Basophil% 0.2 % (0-1); Eosinophil# 0.03 X10^3/uL; Eosinophils% 0.4 % (0-5); Hematocrit 26.9 % (37-47); Hemoglobin 8.5 g/dL (12.0-15.0); Lymphocyte % 15.2 % (19-41); Mean Corp Hgb Conc 31.6 g/dL (32-36); Mean Corpuscular Hgb 27.3 pg (27.0-32.0); Mean Corpuscular Volume 86.5 fL (81-99); Mean Platelet Vol. 8.9 fl (6.2-12.0); Monocyte# 0.61 X10^3/uL; Monocyte% 7.1 % (0-10); NRBC Flagged by Analyzer 0 % (0-5); Neutrophil # 6.54 X10^3/uL (2.7-7.7); Neutrophil % 76.6 % (47-70); POSITIVE MORPHOLOGY YES; Platelet Count 163 K/mm3 (150-450); RBC Distribution Width CV 20.3 % (11.6-14.6); Red Blood Count 3.11 M/mm3 (4.2-5.4); White Blood Count 8.5 K/mm3 (4.4-11.0)
[2025-01-09 16:32] LABS: Differential Indicated SCAN CRITERIA MET
[2025-01-09 16:55] LABS: Troponin T High Sensitivity 46 ng/L (<=14)
[2025-01-09 17:47] LABS: Anisocytosis 1+; Platelet Estimate ADEQUATE (ADEQ)
== END | disposition home or self-care (01) ==
LOC: LAB 15:55
PROVIDERS: PCP Internal Medicine; Referring Provider Internal Medicine; Visit Provider Internal Medicine
DX: R00.0 Tachycardia, unspecified (principal); I48.91 Unspecified atrial fibrillation
CPT/HCPCS: 36415; 84443; 84484; 85025

== ENCOUNTER → 2025-01-19 | Outpatient (CLI) | payer MEDICARE, SELFPAY ==
--- NOTE | 2025-01-19 14:27 | BI_ITS ---
EXAM: SCRN MAMM (CAD)W/JASPER BILAT DATE: 01/19/2025 CLINICAL HISTORY: F, Age 79 y/o , BILAT BRST SCREEN JASPER ADD-ON BREAST CANCER RISK ASSESSMENT: Not reported TECHNIQUE: Bilateral screening digital breast tomosynthesis with 2D and 3D images. Computer aided detection. COMPARISON: None available FINDINGS: TISSUE DENSITY: The breast tissue is heterogenously dense, which may obscure small masses. Bilateral Breast Mammographic Findings: Right breast: No suspicious masses, calcifications or other abnormalities are identified. Left breast: There is a mass in the central slightly upper left breast at mid depth BI/SCRN MAMM (CAD)W/JASPER BILAT IMPRESSION: OVERALL FINAL ASSESSMENT: BIRADS 0 Incomplete: Need additional imaging evaluati on and/or prior mammograms for comparison. RECOMMENDATION: Incomplete: Need additional imaging evaluation with diagnostic left breast mamm ogram and ultrasound. A letter with findings and recommendations will be mailed to the patient. Reading Location: [id number]
--- NOTE | 2025-01-19 14:29 | BD_ITS ---
PROCEDURE: DEXA BONE DENSITY STUDY 01/19/2025 REASON FOR EXAM: F, age 79 y/o . Postmenopausal. TECHNIQUE: DXA scan of sites with data reported below. REFERENCE LINKS: [facility] Adult Positions COMPARISON: Prior study dated June 19, 2020. FINDINGS: BMD and T-SCORES Lumbar spine: 0.890 g/cm2, T-score -1.2 Levels: L1 through L4 Change from prior: Improved by 4.4%. Left femoral neck: 0.808 g/cm2, T-score -0.4 Femoral neck comparison data not recommended for monitoring change. Left total hip: 0.851 g/cm2, T-score -0.7 Change from prior: Worsening by 7.5%. Right femoral neck: 0.570 g/cm2, T-score -2.5 Femoral neck comparison data not recommended for monitoring change. Right total hip: 0.723 g/cm2, T-score -1.8 Change from prior: Worsening by 17.3%. The World Health Organization has defined the following categories based on bone density: Normal bone density: T-score equal to or greater than -1.0 Osteopenia: T-score between -1.0 and -2.5 Osteoporosis: T-score equal to or less than -2.5 The patient does meet the pharmacological treatment recommendations for prevention of osteoporosis. BD/Dexa Bone Density Study IMPRESSION: OSTEOPENIA. Recommend follow-up as clinically warranted. Reading Location: [place] [id number]
== END | disposition home or self-care (01) ==
LOC: OPBD 14:25
PROVIDERS: PCP Internal Medicine; Referring Provider Internal Medicine; Visit Provider Internal Medicine
DX: Z12.31 Encounter for screening mammogram for malignant neoplasm of breast (principal); Z78.0 Asymptomatic menopausal state
CPT/HCPCS: 77063; 77067; 77080

== ENCOUNTER → 2025-02-06 | Outpatient (CLI) | payer MEDICARE, SELFPAY ==
--- NOTE | 2025-02-06 13:56 | US_ITS ---
PROCEDURE: BREAST LIMITED UNILATERAL 02/06/2025 REASON FOR EXAM: ABN MAMM TECHNIQUE: Targeted left breast ultrasound. COMPARISON: Prior mammogram done earlier in the day. FINDINGS: Left breast ultrasound was targeted to the upper half of the left breast.. There are several well-defined subcentimeter hypoechoic nodules at the 12 o'clock position of the breast at 8 cm from the nipple suggestive of small intramammary lymph nodes. US/Breast Limited Unilateral IMPRESSION: Impression: Findings suggestive of subcentimeter benign-appearing lymph nodes a t the 12 o'clock position of the breast at 8 cm from the nipple. Birads: BI-RADS 2: BENIGN. RECOMMEND ANNUAL MAMMOGRAPHIC SCREENING. Reading Location: [place] [id number]
--- NOTE | 2025-02-06 13:56 | BI_ITS ---
EXAM: DIAG MAMM W/CAD, UNILAT 02/06/2025 CLINICAL HISTORY: F, Age 79 y/o , ABN MAMM TECHNIQUE: Compression spot views of the left breast in the mediolateral oblique and craniocaudad views were obtained.. Computer aided detection. COMPARISON: Prior exam(s) dated January 19, 2025.. FINDINGS: TISSUE DENSITY: The breast tissue is heterogenously dense, which may obscure small masses. Bilateral Breast Mammographic Findings: No significant masses, calcifications or other abnormalities are identified. Stable scattered microcalcifications. BI/DIAG MAMM W/CAD, UNILAT IMPRESSION: OVERALL FINAL ASSESSMENT: BIRADS 0 Incomplete: Need additional imaging evaluati on and/or prior mammograms for comparison.. RECOMMENDATION: Sonographic correlation recommended. A letter with findings and recommendations will be mailed to the patient. Reading Location: [place] [id number]
== END | disposition home or self-care (01) ==
LOC: OPBI 13:54
PROVIDERS: PCP Internal Medicine; Referring Provider Internal Medicine; Visit Provider Internal Medicine
DX: R92.8 Other abnormal and inconclusive findings on diagnostic imaging of breast (principal)
CPT/HCPCS: 76642; 77065

== ENCOUNTER 2025-02-13 04:15 | Emergency (ER) | payer MEDICARE, SELFPAY ==
[2025-02-13 04:15] VITALS: BP 126/62; PULSE 67; RESP 16; TEMP 37.1; O2SAT 97; BMI 29.4
--- NOTE | 2025-02-13 04:31 | EDS_ITS ---
HPI HPI - GI History of Present Illness Chief Complaint: Constipation Informant: patient Abdominal Pain/Flank Pain Onset: Days Context: Gradual Onset Timing: Continuous Nausea/Vomiting/Emesis GI Symptom: Negative for Nausea or Vomiting Diarrhea/Melena/Hematochezia GI Symptom: Positive for - (Constipation for 3 to 4 days.); Negative for Diarrhea, Melena or Hematochezia Associated Symptoms Associated Symptoms: Negative for Dysuria, Frequency, Hematuria or Urgency Narrative Narrative: 79-year-old female history of ovarian cancer on chemotherapy, COPD and A-fib on Eliquis. Patient states that she has had constipation and has had a bowel movement the last 3 to 4 days. Thinks her last bowel movement was like . Denies abdominal pain. States she has the urge to have a bowel movement but just cannot. Denies any nausea or vomiting. No other complaints. She has been taking MiraLAX and stool softener without relief. Prior similar symptoms: No Recent Illness/Hospitalization: Yes PFSH [facility] Medical History Bowel obstruction Restless leg syndrome Chronic anticoagulation Ovarian cancer Chronic anticoagulation Anemia Bladder prolapse History of cardioversion Cardiology follow-up encounter Cellulitis Multiple thyroid nodules Multiple thyroid nodules NAFLD (nonalcoholic fatty liver disease) Diarrhea Steatosis Hepatomegaly Non-smoker Shortness of breath on exertion COPD (chronic obstructive pulmonary disease) Recurrent ventral incisional hernia Paroxysmal atrial fibrillation Thyroid nodule Right lower lobe pulmonary nodule Atrial fibrillation with rapid ventricular response (10/12/20) Nonrheumatic mitral valve stenosis with insufficiency Essential (primary) hypertension Peritoneal carcinomatosis Ovarian cancer Cholelithiasis Chronic cholecystitis Calculus of gallbladder with chronic cholecystitis without obstruction Vitamin D deficiency Hyperlipemia Carpal tunnel syndrome, bilateral Bilateral carotid artery stenosis Asthma Fatty liver Sciatica Osteopenia Paresthesia Home Medications ?Medication ?Instructions ?Recorded ?Last Taken ?Type calcium carbonate (Tums) 200 mg PO DAILY supplement 0 10/09/17 Unknown History coenzyme Q10 100 mg capsule 100 mg PO DAILY Supplement 10/23/20 Unknown History cholecalciferol (vitamin D3) 50 7,000 unit PO DAILY byrnes pplement 03/16/23 Unknown History mcg (2,000 unit) capsule ascorbic acid (vitamin C) 1,000 mg 2 g PO DAILY Supple ment 09/23/23 Unknown History tablet (C-1000) zinc 50 mg capsule 50 mg PO DAILY Supplement Unknown History bupropion HCl 150 mg 24 hr tablet, 150 mg PO DAILY Moo d 10/25/23 Unknown History extended release ferrous sulfate 325 mg (65 mg 325 mg PO DAILY Suppleme nt 10/25/23 Unknown History iron) tablet (FeroSul) diltiazem HCl 120 mg 120 mg PO Q12H Heart #180 ca ps 05/13/24 09/20/24 08:40 Rx capsule,extended release 24 hr betamethasone, augmented 0.05 % applic topical BID PRN PRN skin 06/28/24 Unknown History topical cream irritation ondansetron 4 mg disintegrating 4 mg PO Q8H PRN PRN Na usea #10 tabs 06/28/24 Unknown Rx tablet metoprolol tartrate 50 mg tablet 50 mg PO BID BP #180 tabs 08/04/24 09/20/24 08:30 Rx amiodarone 200 mg tablet 200 mg PO DAILY Heart Rhythm 09/20/24 09/20/24 08:30 History acetaminophen 500 mg tablet 1,000 mg (2 x 500 mg) PO Q 6H PRN 09/30/24 Unknown Rx PRN Pain Score 1-10 #0 tabs apixaban 5 mg tablet (Eliquis) 5 mg PO BID 30 days #60 tabs 09/30/24 Unknown Rx furosemide 40 mg tablet 40 mg PO BIDLX 30 days #60 t abs 09/30/24 Unknown Rx potassium chloride 20 mEq 20 meq PO BID 30 days #60 ta bs 09/30/24 Unknown Rx tablet,extended release(part/cryst) prochlorperazine maleate 10 mg 10 mg PO Q6H PRN PRN an xiety 01/09/25 Unknown History tablet pantoprazole 20 mg tablet,delayed 20 mg PO DAILY 01/10 Unknown History release magnesium gluconate 27 mg 27 mg PO QDAY 02/08/25 Unkno wn History magnesium (500 mg) tablet metoclopramide HCl 5 mg tablet 5 mg PO TID PRN 5 Unknown History rosuvastatin 5 mg tablet (Crestor) 5 mg PO .qod CHOLES TEROL 02/08/25 Unknown History gabapentin 300 mg capsule 300 mg PO QHS 02/13/25 Unkno wn History Allergy/AdvReac Type Severity Reaction Status Date / Time morphine AdvReac Severe Nausea/Vom/ Verified 02/13/25 04:16 Diarrhea penicillin G AdvReac Unknown Unknown Verified 02/13/25 04:16 Family History Father CAD (coronary artery disease) Diabetes Mother Lymphoma Sister Colon cancer Brother Colon cancer Surgical History History of rectal polypectomy History of hysterectomy with unilateral oophorectomy (1983) History of cholecystectomy (10/23/17) H/O nasal polypectomy History of colonoscopy History of hernia repair (10/2020) History of shoulder replacement (2019) History of exploratory laparotomy (10/2020) Status post laser ablation of incompetent vein Social History household members: none and other details: . Smoking Status: Never smoker second hand exposure: No alcohol intake: never details: rare substance use type: does not use caffeine: No what type of physical activity do you participate in: walking frequency: 3-4 times per week duration: < 15 minutes/day patricia/anabaptism: Oriental Orthodox seatbelt use: always do you feel safe at home: Yes ROS ROS ED ROS Narrative Constipation. Constitutional Constitutional ED: Denies chills or fever(s) ENT ENT ED: Denies ear pain Cardiovascular Cardiovascular: Denies chest pain Respiratory/Chest Respiratory/Chest: Denies cough Gastrointestinal Gastrointestinal: Reports constipation; Denies abdominal pain, diarrhea, melena, nausea or vomiting Genitourinary Genitourinary ED: Denies dysuria or hematuria Musculoskeletal Musculoskeletal: Denies arthralgias Integumentary Denies abscess Neurologic Neurologic: Denies headache(s) Psychiatric Psychiatric: Denies anxiety Endocrine Endocrinology: Denies polydipsia Hematologic/Lymphatic Hematologic/Lymphatic: Denies easy bleeding, easy bruising or lymphadenopathy Allergic/Immunologic Allergic/Immunologic ED: Denies mouth swelling, tongue swelling or urticaria EXAM Physical Exam Narrative Exam Narrative: 79-year-old female lying in bed. No acute distress. Vital signs stable afebrile. H EENT exam pupils round react light. Mytrex membranes. Neck nontender. Lungs clear to auscultation bilateral. Heart regular rhythm rate about 70 no murmur. Chest wall ribs nontender. Abdomen soft. Nontender. Nondistended. Umbilical hernia. No peritoneal signs. No signs of obstruction. Bowel sounds. Moving all 4 extremities. Trace edema both lower extremities. Normal director multiple sclerosis center strength. Normal dorsi plantarflexion. Back nontender. Neurologically she is awake alert. Answer questions following commands. Const Vital Signs: 02/13/25 04:15 Temperature 98.8 F Temperature Source Oral Pulse Rate 67 Respiratory Rate 16 Blood Pressure 126/62 H Blood Pressure Mean 83 Pulse Ox 97 Positive well nourished and well developed; Negative for cachectic, contractures or unkempt General Appearance ED: well developed and NAD; Negative for unkempt, cachectic, contractures or pallor Nutritional Appearance: Negative for cachectic HEENT Reports moist mucous membranes normocephalic and atraumatic Eyes PERRL and EOMs intact bilaterally Neck no lymphadenopathy, supple and no JVD Resp normal respiratory effort and clear to auscultation bilaterally Cardio regular rate, regular rhythm, S1 normal heart sound, S2 normal heart sound and no murmurs GI non-tender, non-distended and no masses GI Narrative: Umbilical hernia. Nontender. Inspection: Negative for abdominal distention Auscultation: normoactive bowel sounds Palpation: soft and hernia; Negative for tender, guarding, mass, pulsatile mass or rebound tenderness present Back/Spine no CVA tenderness Extremity full ROM General Extremety ED: Yes edema General Extremity: edema Neuro CN's II-XII intact bilaterally and moves all extremities Sensorium / Orientation: alert, oriented to person, oriented to place and oriented to time Motor Exam: strength 5/5 throughout Psych mental status grossly normal and thought process normal Appearance: Negative for unkempt Skin General Skin Exam: Negative for jaundice or pallor Lesions: no lesions Rashes: no rashes MDM MDM MDM Narrative Medical decision making narrative: 79-year-old female constipation with a known history of ovarian cancer. KUB to be obtained. She is not having any abdominal pain. Repeat exam patient resting comfortably at 5:10 AM. We went over x-ray results which did show significant constipation with stool throughout her rectum and an entire colon. We discussed treatment options. She will be discharged home with Aimee. Follow-up with her doctor as needed. Return if worse. History & Record Review Discussion w/independent historian: Patient and Family Additional record(s) reviewed:: Prior inpatient record, Prior outpatient record, Prior ED visit and Prior labs Radiography Diagnostic Testing: KUB, 1 view, 2 films, interpreted by myself shows increased stool throughout the rectum and the entire colon consistent with constipation. No signs of obstruction. No air-fluid levels. Discussed with the patient. Discharge Plan Triage Chief Complaint: Constipation ED Provider: Raz Larsen Dx/Rx/DC Orders Clinical Impression: Constipation, History of ovarian cancer, History of atrial fibrillation, Chronic anticoagulation Instructions: ED Constipation (Adult) Prescriptions: No Action calcium carbonate [Tums] 200 mg calcium (500 mg) tablet,chewable 200 mg PO DAILY cholecalciferol (vitamin D3) 50 mcg (2,000 unit) capsule 7,000 unit PO DAILY rosuvastatin [Crestor] 5 mg tablet 5 mg PO .qod coenzyme Q10 100 mg capsule 100 mg PO DAILY magnesium gluconate 27 mg magnesium (500 mg) tablet 27 mg PO QDAY metoclopramide HCl 5 mg tablet 5 mg PO TID PRN zinc 50 mg capsule 50 mg PO DAILY ascorbic acid (vitamin C) [C-1000] 1,000 mg tablet 2 g PO DAILY bupropion HCl 150 mg tablet extended release 24 hr 150 mg PO DAILY ferrous sulfate [FeroSul] 325 mg (65 mg iron) tablet 325 mg PO DAILY betamethasone, augmented 0.05 % cream topical BID PRN PRN (Reason: skin irritation) ondansetron 4 mg tablet,disintegrating 4 mg PO Q8H PRN PRN (Reason: Nausea) Qty: 10 0RF amiodarone 200 mg tablet 200 mg PO DAILY furosemide 40 mg Tablet 40 mg PO BIDLX 30 Days Qty: 60 0RF acetaminophen 500 mg Tablet 1,000 mg PO Q6H PRN PRN (Reason: Pain Score 1-10) Qty: 0 0RF Eliquis 5 mg Tablet 5 mg PO BID 30 Days Qty: 60 0RF potassium chloride 20 mEq Tablet,Er Particles/Crystals 20 meq PO BID 30 Days Qty: 60 0RF prochlorperazine maleate 10 mg tablet 10 mg PO Q6H PRN PRN (Reason: anxiety) pantoprazole 20 mg tablet,delayed release (DR/EC) 20 mg PO DAILY gabapentin 300 mg capsule 300 mg PO QHS diltiazem HCl 120 mg capsule,extended release 24hr 120 mg PO Q12H Qty: 180 3RF metoprolol tartrate 50 mg tablet 50 mg PO BID Qty: 180 3RF Primary Care Provider: Gini Ojeda Referrals: Gini Ojeda DO [Primary Care Provider] - As Needed Activity Restrictions/Additional Instructions: Drink a 10 ounce glass of the GoLytely every 30 minutes to 1 hour until you start having significant bowel movements. Usually takes 2 or 3 hours. Plenty of fluids, fruits, vegetable, fiber, prune juice and magnesium citrate to also help you with the constipation. Follow-up with your doctor if not improving or return to emergency department. Print Language: Barbadian Disposition Disposition: Home, Self Care
--- NOTE | 2025-02-13 04:35 | RAD_ITS ---
PROCEDURE: ABDOMEN SINGLE VIEW 02/13/2025 REASON FOR EXAM: CONSTIPATION TECHNIQUE: ABDOMEN SINGLE VIEW COMPARISON: 10/24/2024. FINDINGS: Moderate amount of fecal residue in the large bowels. Normal visualized lung bases. There is an unremarkable bowel gas pattern. There is no demonstrated free abdominal air. Normal visualized liver. Normal visualized spleen. Normal visualized kidneys. The soft tissue structures of the pelvis are unremarkable. Moderate diffuse spondylosis. RAD/Abdomen Single View IMPRESSION: Moderate amount of fecal residue in the large bowels. Moderate diffuse spondylosis. [facility]
[2025-02-13 05:11] VITALS: BP 105/59; PULSE 63; RESP 18; TEMP 36.6; O2SAT 98
[2025-02-13] MEDS: Electrolyte Solution/Peg's 4000 ML 2000 ML PO (05:27)
== END 2025-02-13 05:29 | disposition home or self-care (01) ==
PROVIDERS: Emergency Provider Emergency Medicine; PCP Internal Medicine; Visit Provider Emergency Medicine
DX: K59.00 Constipation, unspecified (principal); C56.9 Malignant neoplasm of unspecified ovary; J44.9 Chronic obstructive pulmonary disease, unspecified; I48.0 Paroxysmal atrial fibrillation; K42.9 Umbilical hernia without obstruction or gangrene; D64.9 Anemia, unspecified; I10 Essential (primary) hypertension; E78.5 Hyperlipidemia, unspecified; E55.9 Vitamin D deficiency, unspecified; K76.0 Fatty (change of) liver, not elsewhere classified; G25.81 Restless legs syndrome; M85.80 Other specified disorders of bone density and structure, unspecified site; Z90.49 Acquired absence of other specified parts of digestive tract; Z79.01 Long term (current) use of anticoagulants; Z79.899 Other long term (current) drug therapy
CPT/HCPCS: 74018; 99284

== ENCOUNTER 2025-02-14 02:08 | Emergency (ER) | payer MEDICARE, SELFPAY ==
[2025-02-14 02:10] VITALS: BP 140/67; PULSE 72; RESP 16; TEMP 36.8; O2SAT 95; BMI 28.4
[2025-02-14] MEDS: Dicyclomine 20 MG/2 ML Vial IM (02:56)
[2025-02-14] MEDS: 0.9% Normal Saline (1000mL) 1,000 ML 999 ML IV (02:56)
[2025-02-14 03:00] VITALS: BP 133/60; PULSE 67; RESP 16; O2SAT 97
[2025-02-14 03:58] LABS: Anion Gap 16 (5-15); BUN 30 mg/dL (4-19); Calcium,Total 9.6 mg/dL (7.6-11.0); Carbon Dioxide 29.1 mmol/L (21.0-32.0); Chloride 93 mmol/L (98-108); Creatinine, Serum 0.99 mg/dL (0.70-1.20); EST Glomerular Filtration Rate 57 (>60); Estimated Creatinine Clearance 47.55 ml/min (50-250); Glucose 117 mg/dL (70-99); Magnesium 1.6 mg/dL (1.5-2.2); Potassium 3.3 mmol/L (3.3-5.1); Sodium Level 139 mmol/L (133-145)
--- NOTE | 2025-02-14 04:53 | EDS_ITS ---
HPI History of Present Illness Chief Complaint: Diarrhea Informant: patient and EMS Narrative Narrative: Patient is an 79-year-old female with past medical history of hypertension and atrial fibrillation currently on Eliquis. She was seen in the ER yesterday seco ndary to constipation and was ultimately discharged home with GoLytely. Patient states she drank the GoLytely and has been having watery bowel movements ever since. She states it has been approximately 12 hours since she drank the GoLytely. She states that it got to the point where she felt the urge to defecate and as she stood up to walk to the bathroom lost control of her bowels. She denies any blood or discoloration to the stool. However as it has been recurrent for multiple hours she was concerned and secondary to this called EMS to be brought in for evaluation [facility] Medical History Bowel obstruction Restless leg syndrome Chronic anticoagulation Ovarian cancer Chronic anticoagulation Anemia Bladder prolapse History of cardioversion Cardiology follow-up encounter Cellulitis Multiple thyroid nodules Multiple thyroid nodules NAFLD (nonalcoholic fatty liver disease) Diarrhea Steatosis Hepatomegaly Non-smoker Shortness of breath on exertion COPD (chronic obstructive pulmonary disease) Recurrent ventral incisional hernia Paroxysmal atrial fibrillation Thyroid nodule Right lower lobe pulmonary nodule Atrial fibrillation with rapid ventricular response (10/12/20) Nonrheumatic mitral valve stenosis with insufficiency Essential (primary) hypertension Peritoneal carcinomatosis Ovarian cancer Cholelithiasis Chronic cholecystitis Calculus of gallbladder with chronic cholecystitis without obstruction Vitamin D deficiency Hyperlipemia Carpal tunnel syndrome, bilateral Bilateral carotid artery stenosis Asthma Fatty liver Sciatica Osteopenia Paresthesia Home Medications ?Medication ?Instructions ?Recorded ?Last Taken ?Type calcium carbonate (Tums) 200 mg PO DAILY supplement 0 10/09/17 Unknown History coenzyme Q10 100 mg capsule 100 mg PO DAILY Supplement 10/23/20 Unknown History cholecalciferol (vitamin D3) 50 7,000 unit PO DAILY byrnes pplement 03/16/23 Unknown History mcg (2,000 unit) capsule ascorbic acid (vitamin C) 1,000 mg 2 g PO DAILY Supple ment 09/23/23 Unknown H istory tablet (C-1000) zinc 50 mg capsule 50 mg PO DAILY Supplement Unknown History bupropion HCl 150 mg 24 hr tablet, 150 mg PO DAILY Moo d 10/25/23 Unknown History extended release ferrous sulfate 325 mg (65 mg 325 mg PO DAILY Suppleme nt 10/25/23 Unknown History iron) tablet (FeroSul) diltiazem HCl 120 mg 120 mg PO Q12H Heart #180 ca ps 05/13/24 09/20/24 08:40 Rx capsule,extended release 24 hr betamethasone, augmented 0.05 % applic topical BID PRN PRN skin 06/28/24 Unknown History topical cream irritation ondansetron 4 mg disintegrating 4 mg PO Q8H PRN PRN Na usea #10 tabs 06/28/24 Unknown Rx tablet metoprolol tartrate 50 mg tablet 50 mg PO BID BP #180 tabs 08/04/24 09/20/24 08:30 Rx amiodarone 200 mg tablet 200 mg PO DAILY Heart Rhythm 09/20/24 09/20/24 08:30 History acetaminophen 500 mg tablet 1,000 mg (2 x 500 mg) PO Q 6H PRN 09/30/24 Unknown Rx PRN Pain Score 1-10 #0 tabs apixaban 5 mg tablet (Eliquis) 5 mg PO BID 30 days #60 tabs 09/30/24 Unknown Rx furosemide 40 mg tablet 40 mg PO BIDLX 30 days #60 t abs 09/30/24 Unknown Rx potassium chloride 20 mEq 20 meq PO BID 30 days #60 ta bs 09/30/24 Unknown Rx tablet,extended release(part/cryst) prochlorperazine maleate 10 mg 10 mg PO Q6H PRN PRN an xiety 01/09/25 Unknown History tablet pantoprazole 20 mg tablet,delayed 20 mg PO DAILY 01/10 Unknown History release magnesium gluconate 27 mg 27 mg PO QDAY 02/08/25 Unkno wn History magnesium (500 mg) tablet metoclopramide HCl 5 mg tablet 5 mg PO TID PRN 5 Unknown History rosuvastatin 5 mg tablet (Crestor) 5 mg PO .qod CHOLES TEROL 02/08/25 Unknown History gabapentin 300 mg capsule 300 mg PO QHS 02/13/25 Unkno wn History Allergy/AdvReac Type Severity Reaction Status Date / Time morphine AdvReac Severe Nausea/Vom/ Verified 02/14/25 02:10 Diarrhea penicillin G AdvReac Unknown Unknown Verified 02/14/25 02:10 Family History Father CAD (coronary artery disease) Diabetes Mother Lymphoma Sister Colon cancer Brother Colon cancer Surgical History History of rectal polypectomy History of hysterectomy with unilateral oophorectomy (1983) History of cholecystectomy (10/23/17) H/O nasal polypectomy History of colonoscopy History of hernia repair (10/2020) History of shoulder replacement (2019) History of exploratory laparotomy (10/2020) Status post laser ablation of incompetent vein Social History household members: none and other details: . Smoking Status: Never smoker second hand exposure: No alcohol intake: never details: rare substance use type: does not use caffeine: No what type of physical activity do you participate in: walking frequency: 3-4 times per week duration: < 15 minutes/day patricia/voodoo: Bahai seatbelt use: always do you feel safe at home: Yes ROS ROS ED Constitutional Constitutional ED: Denies chills or fever(s) Eyes Eyes: Denies blurry vision or change in vision ENT ENT ED: Denies sore throat Cardiovascular Cardiovascular: Reports other Details: Negative syncope ; Denies chest pain, palpitations or racing heartbeat Respiratory/Chest Respiratory/Chest: Denies cough or dyspnea Gastrointestinal Gastrointestinal: Reports diarrhea; Denies abdominal pain, constipation, melena, nausea or vomiting Genitourinary Genitourinary ED: Denies dysuria Musculoskeletal Musculoskeletal: Denies myalgias Integumentary Denies rash Neurologic Neurologic: Denies headache(s) or weakness Hematologic/Lymphatic Hematologic/Lymphatic: Reports easy bleeding and easy bruising EXAM Physical Exam Const Vital Signs: 02/14/25 02:10 02/14/25 03:00 Temperature 98.2 F Temperature Source Oral Pulse Rate 72 67 Respiratory Rate 16 16 Blood Pressure 140/67 H 133/60 H Blood Pressure Mean 91 84 Pulse Ox 95 97 Oxygen Delivery Method Room Air Room Air Positive well nourished, well developed and obese General Appearance ED: well developed; Negative for pallor Nutritional Appearance: obese HEENT Reports dry mucous membranes HEENT Narrative: Mucous membranes are mildly dry and tacky No tongue or lip swelling no oral lesions no airway edema or compromise No secondary findings in the posterior pharynx to suggest infection Mouth ED: Yes dry mucous membranes Mouth: dry mucous membranes Eyes PERRL and EOMs intact bilaterally General Eye ED: Negative for scleral icterus Neck supple Neck Narrative: No nuchal rigidity or meningeal signs noted Resp normal respiratory effort and clear to auscultation bilaterally Cardio regular rate Rate: other Other Details: Irregularly irregular rhythm with regular rate consistent with history of atrial fibrillation GI non-tender, non-distended and no masses GI Narrative: Abdomen is soft nontender and nondistended with hyperactive bowel sounds. No voluntary guarding or rigidity or pulsatile mass. No fluid wave or peritoneal signs noted. Auscultation: hyperactive bowel sounds Palpation: soft Extremity normal to inspection Neuro oriented x3, CN's II-XII intact bilaterally and no sensory deficits noted Sensorium / Orientation: alert Motor Exam: strength 5/5 throughout Psych mental status grossly normal Skin no rashes or lesions noted and No skin turgor normal Skin Narrative: Skin turgor is increased General Skin Exam: Negative for jaundice or pallor MDM MDM MDM Narrative Medical decision making narrative: Patient presented to the ER with stable vitals. She had a soft nonsurgical abdomen. Her x-ray from February 13 was reviewed and it was consistent with constipation. The fact that she was given GoLytely and drink this prior to the bouts of diarrhea starting correlate with the medication taking effect. However to in order to ensure that she does not have acute kidney injury or clinically significant electrolyte abnormality from the recurrent episodes of diarrhea basic blood work was obtained and she was given 1 L of IV fluid. Labs revealed no clinically significant findings. After receiving IV hydration the patient did report feeling better. Furthermore she had no bouts of diarrhea while in the ER. Also without recent travel outside the country or antibiotic use have low concern for C. difficile or uricemia or E. coli. Therefore as her diarrhea has resolved she has no signs of acute kidney injury or clinically significant electrolyte abnormality she is otherwise safe for discharge History & Record Review Discussion w/independent historian: EMS personnel and Patient Lab Data Attestation: I reviewed the patient's lab results. Labs: Laboratory Results - last 24 hr 02/14/25 02:58 Sodium 139 Potassium 3.3 Chloride 93 L Carbon Dioxide 29.1 Anion Gap 16 H BUN 30 H Creatinine 0.99 Estim Creat Clear Calc 47.55 L Est GFR (MDRD) Non-Af 57 L BUN/Creatinine Ratio 30.0 H Glucose 117 H Calcium 9.6 Magnesium 1.6 Discharge Plan Triage Chief Complaint: Diarrhea ED Provider: Daniel De Jesus Dx/Rx/DC Orders Clinical Impression: Diarrhea, Essential (primary) hypertension, Atrial fibrillation, Hyperlipemia, Current use of usp anticoagulation Instructions: ED Diarrhea, Unknown Cause Prescriptions: No Action calcium carbonate [Tums] 200 mg calcium (500 mg) tablet,chewable 200 mg PO DAILY cholecalciferol (vitamin D3) 50 mcg (2,000 unit) capsule 7,000 unit PO DAILY rosuvastatin [Crestor] 5 mg tablet 5 mg PO .qod coenzyme Q10 100 mg capsule 100 mg PO DAILY magnesium gluconate 27 mg magnesium (500 mg) tablet 27 mg PO QDAY metoclopramide HCl 5 mg tablet 5 mg PO TID PRN zinc 50 mg capsule 50 mg PO DAILY ascorbic acid (vitamin C) [C-1000] 1,000 mg tablet 2 g PO DAILY bupropion HCl 150 mg tablet extended release 24 hr 150 mg PO DAILY ferrous sulfate [FeroSul] 325 mg (65 mg iron) tablet 325 mg PO DAILY betamethasone, augmented 0.05 % cream topical BID PRN PRN (Reason: skin irritation) ondansetron 4 mg tablet,disintegrating 4 mg PO Q8H PRN PRN (Reason: Nausea) Qty: 10 0RF amiodarone 200 mg tablet 200 mg PO DAILY furosemide 40 mg Tablet 40 mg PO BIDLX 30 Days Qty: 60 0RF acetaminophen 500 mg Tablet 1,000 mg PO Q6H PRN PRN (Reason: Pain Score 1-10) Qty: 0 0RF Eliquis 5 mg Tablet 5 mg PO BID 30 Days Qty: 60 0RF potassium chloride 20 mEq Tablet,Er Particles/Crystals 20 meq PO BID 30 Days Qty: 60 0RF prochlorperazine maleate 10 mg tablet 10 mg PO Q6H PRN PRN (Reason: anxiety) pantoprazole 20 mg tablet,delayed release (DR/EC) 20 mg PO DAILY gabapentin 300 mg capsule 300 mg PO QHS diltiazem HCl 120 mg capsule,extended release 24hr 120 mg PO Q12H Qty: 180 3RF metoprolol tartrate 50 mg tablet 50 mg PO BID Qty: 180 3RF Primary Care Provider: Gini Ojeda Referrals: Fast,Gini, DO [Primary Care Provider] - Activity Restrictions/Additional Instructions: Your diarrhea is most likely from drinking the GoLytely. This will metabolize in 12 to 24 hours. Your workup today showed no signs of kidney damage or electrolyte issues from the diarrhea. Please keep yourself well-hydrated and return to the ER should you have any further concerns Print Language: Icelandic Disposition Disposition: Home, Self Care Discharge Date/Time: 02/14/25 06:33
[2025-02-14 05:17] VITALS: BP 101/55; PULSE 112; RESP 16; TEMP 36.6; O2SAT 98
== END 2025-02-14 06:33 | disposition home or self-care (01) ==
PROVIDERS: Emergency Provider Emergency Medicine; PCP Internal Medicine; Visit Provider Emergency Medicine
DX: R19.7 Diarrhea, unspecified (principal); J44.9 Chronic obstructive pulmonary disease, unspecified; I48.91 Unspecified atrial fibrillation; I10 Essential (primary) hypertension; E78.5 Hyperlipidemia, unspecified; E66.9 Obesity, unspecified; Z79.01 Long term (current) use of anticoagulants
CPT/HCPCS: 80048; 83735; 96360; 96372; 99284

== ENCOUNTER 2025-03-12 07:30 | Emergency (ER) | payer MEDICARE, SELFPAY ==
[2025-03-12 07:31] VITALS: BP 102/48; PULSE 61; RESP 16; TEMP 37.1; O2SAT 96; BMI 28.3
--- NOTE | 2025-03-12 07:47 | ED.VIS.GI ---
HPI HPI - GI History of Present Illness Chief Complaint: Nausea/Vomiting/Diarrhea Informant: patient Abdominal Pain/Flank Pain Onset: Yesterday Context: Sudden Onset Timing: Continuous Quality: Dull and - (Tightness) Location: Epigastric, RUQ and LUQ Worsened by: - (Palpation) Relieved by: Nothing Nausea/Vomiting/Emesis GI Symptom: Positive for Nausea; Negative for Vomiting Diarrhea/Melena/Hematochezia GI Symptom: Positive for Diarrhea; Negative for Melena or Hematochezia Stool Quality: Positive for Watery Associated Symptoms Associated Symptoms: Positive for Frequency; Negative for Dysuria or Hematuria Narrative Narrative: Patient presents with abdominal pain, nausea, and diarrhea that began yesterday. Patient states she started having some watery diarrhea yesterday. Patient denies any melena or hematochezia. Patient states she has been having upper abdominal pain. Patient states it is worse with palpation. Patient states nothing makes it better. Patient states she did take some Imodium which did help with her diarrhea initially. Patient admits to some nausea but denies any vomiting. Patient denies any fevers or chills. Patient does admit to some urinary frequency but denies any dysuria or hematuria. Patient denies any recent antibiotic use. [facility] Medical History Bowel obstruction Restless leg syndrome Chronic anticoagulation Ovarian cancer Chronic anticoagulation Anemia Bladder prolapse History of cardioversion Cardiology follow-up encounter Cellulitis Multiple thyroid nodules Multiple thyroid nodules NAFLD (nonalcoholic fatty liver disease) Diarrhea Steatosis Hepatomegaly Non-smoker Shortness of breath on exertion COPD (chronic obstructive pulmonary disease) Recurrent ventral incisional hernia Paroxysmal atrial fibrillation Thyroid nodule Right lower lobe pulmonary nodule Atrial fibrillation with rapid ventricular response (10/12/20) Nonrheumatic mitral valve stenosis with insufficiency Essential (primary) hypertension Peritoneal carcinomatosis Ovarian cancer Cholelithiasis Chronic cholecystitis Calculus of gallbladder with chronic cholecystitis without obstruction Vitamin D deficiency Hyperlipemia Carpal tunnel syndrome, bilateral Bilateral carotid artery stenosis Asthma Fatty liver Sciatica Osteopenia Paresthesia Home Medications ?Medication ?Instructions ?Recorded ?Last Taken ?Type calcium carbonate (Tums) 200 mg PO DAILY supplement 10/09/17 Unknown History coenzyme Q10 100 mg capsule 100 mg PO DAILY Supplement 10/23/20 Unknown History cholecalciferol (vitamin D3) 50 7,000 unit PO DAILY supplement 03/16/23 Unknown History mcg (2,000 unit) capsule ascorbic acid (vitamin C) 1,000 mg 2 g PO DAILY Supplement 09/23/23 Unknown History tablet (C-1000) zinc 50 mg capsule 50 mg PO DAILY Supplement 09/23/23 Unknown History bupropion HCl 150 mg 24 hr tablet, 150 mg PO DAILY Mood 10/25/23 Unknown History extended release ferrous sulfate 325 mg (65 mg 325 mg PO DAILY Supplement 10/25/23 Unknown History iron) tablet (FeroSul) diltiazem HCl 120 mg 120 mg PO Q12H Heart #180 caps 05/13/24 09/20/24 08:40 Rx capsule,extended release 24 hr ondansetron 4 mg disintegrating 4 mg PO Q8H PRN PRN Nausea #10 tabs 06/28/24 Unknown Rx tablet metoprolol tartrate 50 mg tablet 50 mg PO BID BP #180 tabs 08/04/24 09/20/24 08:30 Rx amiodarone 200 mg tablet 200 mg PO DAILY Heart Rhythm 09/20/24 09/20/24 08:30 History acetaminophen 500 mg tablet 1,000 mg (2 x 500 mg) PO Q6H PRN 09/30/24 Unknown Rx PRN Pain Score 1-10 #0 tabs apixaban 5 mg tablet (Eliquis) 5 mg PO BID 30 days #60 tabs 09/30/24 Unknown Rx furosemide 40 mg tablet 40 mg PO BIDLX 30 days #60 tabs 09/30/24 Unknown Rx potassium chloride 20 mEq 20 meq PO BID 30 days #60 tabs 09/30/24 Unknown Rx tablet,extended release(part/cryst) prochlorperazine maleate 10 mg 10 mg PO Q6H PRN PRN anxiety 01/09/25 Unknown History tablet pantoprazole 20 mg tablet,delayed 20 mg PO DAILY 01/10/25 Unknown History release magnesium gluconate 27 mg 27 mg PO QDAY 02/08/25 Unknown History magnesium (500 mg) tablet metoclopramide HCl 5 mg tablet 5 mg PO TID PRN nausea and vomiting 02/08/25 Unknown History rosuvastatin 5 mg tablet (Crestor) 5 mg PO .qod CHOLESTEROL 02/08/25 Unknown History gabapentin 300 mg capsule 300 mg PO QHS 02/13/25 Unknown History Allergy/AdvReac Type Severity Reaction Status Date / Time morphine AdvReac Severe Nausea/Vom/ Verified 03/12/25 07:31 Diarrhea penicillin G AdvReac Unknown Unknown Verified 03/12/25 07:31 Family History Father CAD (coronary artery disease) Diabetes Mother Lymphoma Sister Colon cancer Brother Colon cancer Surgical History History of rectal polypectomy History of hysterectomy with unilateral oophorectomy (1983) History of cholecystectomy (10/23/17) H/O nasal polypectomy History of colonoscopy History of hernia repair (10/2020) History of shoulder replacement (2019) History of exploratory laparotomy (10/2020) Status post laser ablation of incompetent vein Social History household members: none and other details: . Smoking Status: Never smoker second hand exposure: No alcohol intake: never details: rare substance use type: does not use caffeine: No what type of physical activity do you participate in: walking frequency: 3-4 times per week duration: < 15 minutes/day patricia/buddhist: Orthodox seatbelt use: always do you feel safe at home: Yes ROS ROS ED Constitutional Constitutional ED: Denies chills or fever(s) Eyes Eyes: Denies blurry vision or change in vision ENT ENT ED: Denies rhinorrhea or sore throat Cardiovascular Cardiovascular: Denies chest pain or palpitations Respiratory/Chest Respiratory/Chest: Denies cough or dyspnea Gastrointestinal Gastrointestinal: Reports abdominal pain, diarrhea and nausea; Denies melena or vomiting Genitourinary Genitourinary ED: Reports urinary frequency; Denies dysuria or hematuria Musculoskeletal Musculoskeletal: Denies back pain or neck pain Integumentary Denies abscess or rash Neurologic Neurologic: Denies headache(s) or weakness Allergic/Immunologic Allergic/Immunologic ED: Denies mouth swelling or urticaria EXAM Physical Exam Const Vital Signs: 03/12/25 07:31 03/12/25 09:31 03/12/25 11:00 Temperature 98.7 F 97.8 F 98.4 F Temperature Source Oral Oral Oral Pulse Rate 61 68 66 Respiratory Rate 16 14 16 Blood Pressure 102/48 L 109/68 107/40 L Blood Pressure Mean 66 81 62 Pulse Ox 96 97 96 Oxygen Delivery Method Room Air Room Air Room Air Positive well nourished and well developed Constitutional Narrative: BMI is 28.4. General Appearance ED: well developed and NAD HEENT Reports moist mucous membranes Neck supple and no JVD Resp normal respiratory effort and clear to auscultation bilaterally Cardio regular rate and regular rhythm GI GI Narrative: There is a large ventral hernia. Auscultation: hyperactive bowel sounds Palpation: soft and tender RLQ and RUQ; Negative for guarding or rebound tenderness present Neuro CN's II-XII intact bilaterally, moves all extremities and no sensory deficits noted Sensorium / Orientation: alert Motor Exam: strength 5/5 throughout Psych mental status grossly normal MDM MDM MDM Narrative Medical decision making narrative: Differential diagnosis includes bowel obstruction, perforation, urinary tract infection, colitis, C. difficile, dehydration, electrolyte abnormality, pancreatitis, and a viral illness. CBC will be obtained to assess for leukocytosis and anemia. Comprehensive metabolic profile will be obtained to assess for hepatic function, renal function, and electrolyte abnormality. Lipase will be obtained to assess for pancreatitis. Urinalysis will be obtained to assess for urinary tract infection and hematuria. CT scan of the abdomen and pelvis will be obtained to assess for bowel obstruction and perforation. Stool for C. difficile will be obtained to assess for C. difficile colitis. Stool for enteric pathogens will also be obtained. Serum lactate will be obtained to assess for sepsis and ischemic bowel. History & Record Review Additional record(s) reviewed:: Prior outpatient record, Prior ED visit and Prior labs Lab Data Attestation: I reviewed the patient's lab results. Lab results narrative: CBC was reviewed. White blood cell count was normal at 9.5. Hemoglobin was 8.5 and hematocrit was 27.6. These are consistent with previous results. Comprehensive metabolic profile was reviewed. BUN was slightly elevated at 23. The remainder is within normal limits. Lipase was reviewed and was normal at 20. Serum lactate was reviewed and was normal at 1.0. Labs: Laboratory Results - last 24 hr 03/12/25 03/12/25 08:07 09:23 WBC 9.5 RBC 3.13 L Hgb 8.5 L Hct 27.6 L MCV 88.2 MCH 27.2 MCHC 30.8 L RDW Std Deviation 63.2 H RDW Coeff of Jaciel 19.6 H Plt Count 409 MPV 8.9 Immature Gran % (Auto) 0.700 Neut % (Auto) 71.5 H Lymph % (Auto) 13.9 L [place] % (Auto) 13.6 H Eos % (Auto) 0.2 Baso % (Auto) 0.1 Absolute Neuts (auto) 6.8 Absolute Lymphs (auto) 1.32 Nucleated RBC % 0.3 Sodium 138 Potassium 4.1 Chloride 97 L Carbon Dioxide 25.2 Anion Gap 15 BUN 23 H Creatinine 0.96 Estim Creat Clear Calc 48.97 L Est GFR (MDRD) Non-Af 60 BUN/Creatinine Ratio 23.6 H Glucose 114 H Lactic Acid 1.0 Calcium 9.5 Total Bilirubin 0.27 AST 21 ALT 10 Alkaline Phosphatase 71 Total Protein 7.1 Albumin 3.8 Globulin 3.2 Albumin/Globulin Ratio 1.2 Lipase 20 Radiography Diagnostic Testing: Clinical Impression(s) from Imaging Studies Abdomen/Pelvis CT 03/12/25 08:02 IMPRESSION: 1. Progression of known omental metastatic disease with development of high-grade small-bowel obstruction with transition point within the umbilical hernia. No obvious pneumoperitoneum. 2. Colonic diverticulosis with questionable diverticulitis versus advanced omental disease. 3. Worsening of omental caking/thickening, trace ascites, mesenteric lymphadenopathy, persistent trace right pleural effusion and right lower quadrant subcutaneous nodularity, compatible with known metastatic disease. 4. Mild cutaneous and subcutaneous edema along the bilateral iliac tuberosities, which may represent focal body wall edema or developing decubitus ulcers. Correlation with physical examination recommended. Reading Location: [id number] scan of the abdomen and pelvis was obtained. There is a high-grade small bowel obstruction with transition point within the umbilical hernia. There is no free air. There is worsening of the omental metastatic disease. There is trace ascites. This was interpreted by the radiologist and was also independently reviewed by myself. Treatment and Re-Evaluation :: Patient was given IV fluids and Zofran. Patient had no further episodes of vomiting. Patient was unable to provide stool specimen for C. difficile and enteric pathogen's. Patient was advised of her findings. Patient requested to go to [facility] where her gynecology oncologist, Dr. Kenyon has done surgery on her in the past. Patient was discussed with transfer center at [facility]. Patient was accepted to the service of Dr. Suarez. Patient will be transferred to the emergency department there. Patient understood and was agreeable with the plan. All questions were answered. Discharge Plan Triage Chief Complaint: Nausea/Vomiting/Diarrhea ED Provider: Jose Juan Dunn Dx/Rx/DC Orders Clinical Impression: Small bowel obstruction, Ovarian cancer, Umbilical hernia Prescriptions: No Action calcium carbonate [Tums] 200 mg calcium (500 mg) tablet,chewable 200 mg PO DAILY cholecalciferol (vitamin D3) 50 mcg (2,000 unit) capsule 7,000 unit PO DAILY rosuvastatin [Crestor] 5 mg tablet 5 mg PO .qod coenzyme Q10 100 mg capsule 100 mg PO DAILY magnesium gluconate 27 mg magnesium (500 mg) tablet 27 mg PO QDAY metoclopramide HCl 5 mg tablet 5 mg PO TID PRN (Reason: nausea and vomiting) zinc 50 mg capsule 50 mg PO DAILY ascorbic acid (vitamin C) [C-1000] 1,000 mg tablet 2 g PO DAILY bupropion HCl 150 mg tablet extended release 24 hr 150 mg PO DAILY ferrous sulfate [FeroSul] 325 mg (65 mg iron) tablet 325 mg PO DAILY ondansetron 4 mg tablet,disintegrating 4 mg PO Q8H PRN PRN (Reason: Nausea) Qty: 10 0RF amiodarone 200 mg tablet 200 mg PO DAILY furosemide 40 mg Tablet 40 mg PO BIDLX 30 Days Qty: 60 0RF acetaminophen 500 mg Tablet 1,000 mg PO Q6H PRN PRN (Reason: Pain Score 1-10) Qty: 0 0RF Eliquis 5 mg Tablet 5 mg PO BID 30 Days Qty: 60 0RF potassium chloride 20 mEq Tablet,Er Particles/Crystals 20 meq PO BID 30 Days Qty: 60 0RF prochlorperazine maleate 10 mg tablet 10 mg PO Q6H PRN PRN (Reason: anxiety) pantoprazole 20 mg tablet,delayed release (DR/EC) 20 mg PO DAILY gabapentin 300 mg capsule 300 mg PO QHS diltiazem HCl 120 mg capsule,extended release 24hr 120 mg PO Q12H Qty: 180 3RF metoprolol tartrate 50 mg tablet 50 mg PO BID Qty: 180 3RF Primary Care Provider: Gini Ojeda Referrals: Gini Ojeda, [Primary Care Provider] - Print Language: Austrian Disposition Disposition: Acute Care Hospital Discharge Location: [facility]
--- NOTE | 2025-03-12 08:02 | CT_ITS ---
PROCEDURE: ABDOMEN/PELVIS W IV CONT ONLY 03/12/2025 REASON FOR EXAM: ABDOMINAL PAIN TECHNIQUE: ABDOMEN/PELVIS W IV CONT ONLY Coronal and Sagittal reconstruction series were provided. CONTRAST: Isovue 370 VOLUME: 100 mL One or more dose reduction techniques were used (e.g., Automated exposure control, adjustment of the mA and/or kV according to patient size, use of iterative reconstruction technique. RADIATION DOSE SUMMARY: DLP: 1000 mGycm COMPARISON: CT abdomen pelvis 10/24/2024. FINDINGS: Lung bases: Resolution of prior tree-in-bud opacities. Stable trace right pleural effusion. The heart is normal in size. Liver: The liver is normal in size with slightly nodular contour. The major portal veins are patent. Mild biliary ductal dilation. Gallbladder: Surgically absent. Spleen: Normal in size. Pancreas: Grossly unremarkable. Adrenals: No adrenal mass. Kidneys: Stable left renal cyst. No hydronephrosis or nephrolithiasis. Bladder: Mildly distended and unremarkable. Reproductive Organs: Prior hysterectomy. Bowel: Gradual transition from normal caliber to dilated small bowel with transition point within the large umbilical hernia, which contains dilated small bowel, ascites and omental caking/thickening. Abrupt transition to normal caliber small bowel distally past the umbilical hernia. Fluid and gas distention of the ascending and transverse bowel without dilation. Moderate descending and sigmoid colonic diverticulosis with questionable inflamed diverticula versus advanced omental disease (for example sagittal image 101). Moderate mucosal thickening and narrow caliber sigmoid colon secondary to omental disease. Continued progression of patient's known diffuse omental metastatic disease, including hepatic implants. Trace ascites. No obvious pneumoperitoneum. Prior appendectomy. Lymph nodes: Mesenteric lymphadenopathy, stable to slightly progressed since prior examination. Vasculature: Moderate plaque of the aortoiliac vessels. Bones/soft tissues: Cutaneous and subcutaneous edema along the bilateral iliac tuberosities, slightly progressed since prior examination. Stable right lower quadrant subcutaneous nodular demonstrating contrast enhancement. Severe thoracolumbar spondylosis. CT/Abdomen/Pelvis W IV Cont ONLY IMPRESSION: 1. Progression of known omental metastatic disease with development of high-gra de small-bowel obstruction with transition point within the umbilical hernia. No obvious pneumoperitoneum. 2. Colonic diverticulosis with questionable diverticulitis versus advanced omen kailash disease. 3. Worsening of omental caking/thickening, trace ascites, mesenteric lymphadeno chelsey, persistent trace right pleural effusion and right lower quadrant subcutaneous nodularity, compatible with known metastatic disease. 4. Mild cutaneous and subcutaneous edema along the bilateral iliac tuberosities , which may represent focal body wall edema or developing decubitus ulcers. Correlation with physical examination recommended . Reading Location: [id number]
[2025-03-12 08:11] LABS: Hematocrit 27.6 % (37-47); Hemoglobin 8.5 g/dL (12.0-15.0); Immature Granulocytes Count 0.070 X10^3/uL (0.0-0.0); Mean Corp Hgb Conc 30.8 g/dL (32-36); Mean Corpuscular Volume 88.2 fL (81-99); Mean Platelet Vol. 8.9 fl (6.2-12.0); NRBC Flagged by Analyzer 0.3 % (0-5); Platelet Count 409 K/mm3 (150-450); RBC Distribution Width CV 19.6 % (11.6-14.6); RBC Distribution Width SD 63.2 fl (35.1-43.9); Red Blood Count 3.13 M/mm3 (4.2-5.4); White Blood Count 9.5 K/mm3 (4.4-11.0)
[2025-03-12] MEDS: 0.9% Normal Saline (1000mL) 1,000 ML 999 ML IV (08:14)
[2025-03-12 08:52] LABS: Lipase 20 U/L (13-75)
[2025-03-12 08:54] LABS: AST(SGOT) 21 U/L (<=31); Alanine Aminotransfer ALT/SGPT 10 U/L (<=34); Albumin, Serum 3.8 g/dL (3.4-4.8); Alkaline Phosphatase 71 U/L (35-104); Anion Gap 15 (5-15); BUN 23 mg/dL (4-19); BUN/Creat Ratio 23.6 RATIO (10-20); Calcium,Total 9.5 mg/dL (7.6-11.0); Carbon Dioxide 25.2 mmol/L (21.0-32.0); Chloride 97 mmol/L (98-108); Estimated Creatinine Clearance 48.97 ml/min (50-250); Globulin 3.2 g/dL (2.2-4.2); Glucose 114 mg/dL (70-99); Potassium 4.1 mmol/L (3.3-5.1)
[2025-03-12 09:31] VITALS: BP 109/68; PULSE 68; RESP 14; TEMP 36.6; O2SAT 97
[2025-03-12 10:32] LABS: Mucous, Urine 0 SEEN /hpf (<or=2+); Red Blood Cells-Urine 0 SEEN /hpf (0-5); Squamous Epithelial Cells - UA 0 SEEN /hpf (5-10)
[2025-03-12 10:46] LABS: Color, Urine Yellow (Yellow); Glucose, Dipstick Normal (Normal); Ketone-Dipstick Negative (Negative); Leukocyte Esterase-Dipstick Negative /ul (Negative); Nitrite-Dipstick Positive (Negative); Occult Blood-Urine Negative /ul (Negative); Urine Bilirubin Dipstick Negative (Negative)
[2025-03-12 11:00] VITALS: BP 107/40; PULSE 66; RESP 16; TEMP 36.9; O2SAT 96
[2025-03-12 11:34] LABS: Protein-Dipstick Negative (Negative); Specific Gravity, Urine 1.015 (1.002-1.030)
[2025-03-12 11:58] VITALS: BP 106/42; PULSE 82; RESP 16; TEMP 36.9; O2SAT 98
--- NOTE | 2025-03-12 12:10 | ED.RN ---
Report called to Todd DAMON in ED at [facility]
[2025-03-12 13:00] VITALS: BP 103/49; PULSE 67; RESP 16; O2SAT 99
== END 2025-03-12 13:42 | disposition short-term general hospital (02) ==
PROVIDERS: Emergency Provider Emergency Medicine; PCP Internal Medicine; Visit Provider Emergency Medicine
DX: K56.609 Unspecified intestinal obstruction, unspecified as to partial versus complete obstruction (principal); C56.9 Malignant neoplasm of unspecified ovary; J44.9 Chronic obstructive pulmonary disease, unspecified; K42.9 Umbilical hernia without obstruction or gangrene; I10 Essential (primary) hypertension; R19.7 Diarrhea, unspecified; E78.5 Hyperlipidemia, unspecified; Z79.01 Long term (current) use of anticoagulants; Z79.899 Other long term (current) drug therapy
CPT/HCPCS: 74177; 80053; 81001; 83605; 83690; 85025; 96361; 96374; 96376; 99285; Q9967; A4216; J2405

== ENCOUNTER 2025-05-11 19:15 | Inpatient (IN) | payer MEDICARE, SELFPAY ==
[2025-05-11 19:16] VITALS: BP 132/65; PULSE 94; RESP 16; TEMP 37.1; O2SAT 95; BMI 29.0
[2025-05-11 20:13] LABS: Hematocrit 30.6 % (37-47); Hemoglobin 9.1 g/dL (12.0-15.0); Immature Granulocytes Count 0.070 X10^3/uL (0.0-0.0); Mean Corp Hgb Conc 29.7 g/dL (32-36); Mean Corpuscular Volume 71.5 fL (81-99); Mean Platelet Vol. 8.2 fl (6.2-12.0); NRBC Flagged by Analyzer 0 % (0-5); POSITIVE DIFFERENTIAL YES; POSITIVE MORPHOLOGY YES; Platelet Count 605 K/mm3 (150-450); RBC Distribution Width CV 20.1 % (11.6-14.6); RBC Distribution Width SD 49.4 fl (35.1-43.9); Red Blood Count 4.28 M/mm3 (4.2-5.4); White Blood Count 16.5 K/mm3 (4.4-11.0)
--- NOTE | 2025-05-11 20:13 | EDS_ITS ---
HPI History of Present Illness Chief Complaint: Nausea/Vomiting/Diarrhea Narrative Narrative: Chief complaint and HPI: 80-year-old female with history of metastatic ovarian cancer on hospice, was unable to place proximal atrial fibrillation on Eliquis, HTN blood presents for evaluation of nausea and vomiting. Patient states that her nausea and vomiting significantly worsened today. She states that she has been taking antinausea medicine at home with little relief. She also endorses worsening abdominal pain from her baseline. Describes it as intermittent. States she thinks her last bowel movement was yesterday. She denies any fever, chills, shortness of breath, dysuria, URI symptoms. States she feels that her abdomen is more distended than usual. Review of systems: See HPI Medications: As listed on the chart Allergies: As listed on the chart PFSH: Per chart Vital signs: As listed on the chart. Reviewed. Physical exam: Gen: A&O x3, NAD Head: Normocephalic, atraumatic Eyes: No sclera icterus, conjunctiva clear ENT: Dry mucous membranes Neck: Trachea midline, No JVD CV: RRR, no murmurs, no peripheral edema Resp: Lungs CTA BL, no w/r/c GI: Abd soft, distended, mildly tender to palpation diffusely, no r/r/g Musc: Full ROM, no deformity Skin: Warm, dry Neuro: Alert, oriented, grossly intact, sensation intact Psych: Cooperative, appropriate mood and affect [facility] Medical History Bowel obstruction Restless leg syndrome Chronic anticoagulation Ovarian cancer Chronic anticoagulation Anemia Bladder prolapse History of cardioversion Cardiology follow-up encounter Cellulitis Multiple thyroid nodules Multiple thyroid nodules NAFLD (nonalcoholic fatty liver disease) Diarrhea Steatosis Hepatomegaly Non-smoker Shortness of breath on exertion COPD (chronic obstructive pulmonary disease) Recurrent ventral incisional hernia Paroxysmal atrial fibrillation Thyroid nodule Right lower lobe pulmonary nodule Atrial fibrillation with rapid ventricular response (10/12/20) Nonrheumatic mitral valve stenosis with insufficiency Essential (primary) hypertension Peritoneal carcinomatosis Ovarian cancer Cholelithiasis Chronic cholecystitis Calculus of gallbladder with chronic cholecystitis without obstruction Vitamin D deficiency Hyperlipemia Carpal tunnel syndrome, bilateral Bilateral carotid artery stenosis Asthma Fatty liver Sciatica Osteopenia Paresthesia Home Medications ?Medication ?Instructions ?Recorded ?Last Taken ?Type calcium carbonate (Tums) 200 mg PO DAILY supplement 0 10/09/17 Unknown History coenzyme Q10 100 mg capsule 100 mg PO DAILY Supplement 10/23/20 Unknown History cholecalciferol (vitamin D3) 50 7,000 unit PO DAILY byrnes pplement 03/16/23 Unknown History mcg (2,000 unit) capsule ascorbic acid (vitamin C) 1,000 mg 2 g PO DAILY Supple ment 09/23/23 Unknown History tablet (C-1000) zinc 50 mg capsule 50 mg PO DAILY Supplement Unknown History bupropion HCl 150 mg 24 hr tablet, 150 mg PO DAILY Moo d 10/25/23 Unknown History extended release ferrous sulfate 325 mg (65 mg 325 mg PO DAILY Suppleme nt 10/25/23 Unknown History iron) tablet (FeroSul) diltiazem HCl 120 mg 120 mg PO Q12H Heart #180 ca ps 05/13/24 09/20/24 08:40 Rx capsule,extended release 24 hr ondansetron 4 mg disintegrating 4 mg PO Q8H PRN PRN Na usea #10 tabs 06/28/24 Unknown Rx tablet metoprolol tartrate 50 mg tablet 50 mg PO BID BP #180 tabs 08/04/24 09/20/24 08:30 Rx amiodarone 200 mg tablet 200 mg PO DAILY Heart Rhythm 09/20/24 09/20/24 08:30 History acetaminophen 500 mg tablet 1,000 mg (2 x 500 mg) PO Q 6H PRN 09/30/24 Unknown Rx PRN Pain Score 1-10 #0 tabs apixaban 5 mg tablet (Eliquis) 5 mg PO BID 30 days #60 tabs 09/30/24 Unknown Rx furosemide 40 mg tablet 40 mg PO BIDLX 30 days #60 t abs 09/30/24 Unknown Rx potassium chloride 20 mEq 20 meq PO BID 30 days #60 ta bs 09/30/24 Unknown Rx tablet,extended release(part/cryst) prochlorperazine maleate 10 mg 10 mg PO Q6H PRN PRN an xiety 01/09/25 Unknown History tablet pantoprazole 20 mg tablet,delayed 20 mg PO DAILY 01/10 Unknown History release magnesium gluconate 27 mg 27 mg PO QDAY 02/08/25 Unkno wn History magnesium (500 mg) tablet metoclopramide HCl 5 mg tablet 5 mg PO TID PRN nausea and vomiting 02/08/25 Unknown History rosuvastatin 5 mg tablet (Crestor) 5 mg PO .qod CHOLES TEROL 02/08/25 Unknown History gabapentin 300 mg capsule 300 mg PO QHS 02/13/25 Unkno wn History Allergy/AdvReac Type Severity Reaction Status Date / Time morphine AdvReac Severe Nausea/Vom/ Verified 05/11/25 19:18 Diarrhea penicillin G AdvReac Unknown Unknown Verified 05/11/25 19:18 Family History Father CAD (coronary artery disease) Diabetes Mother Lymphoma Sister Colon cancer Brother Colon cancer Surgical History History of rectal polypectomy History of hysterectomy with unilateral oophorectomy (1983) History of cholecystectomy (10/23/17) H/O nasal polypectomy History of colonoscopy History of hernia repair (10/2020) History of shoulder replacement (2019) History of exploratory laparotomy (10/2020) Status post laser ablation of incompetent vein Social History household members: none and other details: . Smoking Status: Never smoker second hand exposure: No alcohol intake: never details: rare substance use type: does not use caffeine: No what type of physical activity do you participate in: walking frequency: 3-4 times per week duration: < 15 minutes/day patricia/anglican: [employer] seatbelt use: always do you feel safe at home: Yes EXAM Physical Exam Const Vital Signs: 05/11/25 19:16 05/11/25 22:28 Temperature 98.7 F Temperature Source Oral Pulse Rate 94 77 Respiratory Rate 16 15 Blood Pressure 132/65 H 134/75 H Blood Pressure Mean 87 94 Pulse Ox 95 99 Oxygen Delivery Method Room Air MDM MDM MDM Narrative Medical decision making narrative: 80-year-old female with history of metastatic ovarian cancer on hospice, was unable to place proximal atrial fibrillation on Eliquis, HTN blood presents for evaluation of nausea and vomiting. Patient states that her nausea and vomiting significantly worsened today. She states that she has been taking antinausea medicine at home with little relief. She also endorses worsening abdominal pain and distention from her baseline. Differential diagnosis includes but is not limited to symptomatic ovarian cancer, worsening metastatic disease, bowel obstruction, electrolyte abnormality, dehydration, UTI. NS bolus and Zofran ordered. Abdominal pain workup ordered including CT abdomen pelvis. CBC with leukocytosis of 16.5. Patient has baseline anemia with hemoglobin of 9.1. New thrombocytosis of 605. CMP relatively unremarkable. Lactic acid unremarkable. Lipase unremarkable. UA positive for UTI. Urine culture sent. Rocephin ordered. CT abdomen pelvis shows worsening small bowel obstruction with dilated small bowel loops measuring up to 4.8 cm and transition point located to the large umbilical hernia. Sigmoid diverticulosis with no evidence of acute diverticulitis. Interval increase in the moderate right pleural effusion. Small volume ascites throughout the abdomen and pelvis. Patient symptoms are likely secondary to SBO. I did have an extensive conversation with the patient. She would like full treatment including surgery if needed. NG placed. I personally reviewed and interpreted the KUB after insertion in the room, and correct placement. Patient states her last dose of Eliquis was yesterday. I did consult Dr. Juan who will come evaluate the patient in the emergency department. Patient signed out to night physician, Dr. De Jesus. He will await Dr. Juan arrival and further recommendation. Impression: 1. Small bowel obstruction with transition point in umbilical hernia 2. UTI 3. History of ovarian cancer on hospice 4. Thrombocytosis 5. History of anticoagulation Lab Data Labs: Laboratory Results - last 24 hr 05/11/25 05/11/25 05/11/25 19:20 20:14 22:25 WBC 16.5 H RBC 4.28 Hgb 9.1 L Hct 30.6 L MCV 71.5 L MCH 21.3 L MCHC 29.7 L RDW Std Deviation 49.4 H RDW Coeff of Jaciel 20.1 H Plt Count 605 H MPV 8.2 Immature Gran % (Auto) 0.400 Neut % (Auto) 77.8 H Lymph % (Auto) 9.7 L [place] % (Auto) 11.6 H Eos % (Auto) 0.3 Baso % (Auto) 0.2 Absolute Neuts (auto) 12.8 H Absolute Lymphs (auto) 1.59 Nucleated RBC % 0 Differential Comment SCANNED Platelet Estimate MOD INC Polychromasia 1+ Hypochromasia 1+ Anisocytosis 2+ Sodium 137 Potassium 3.8 Chloride 101 Carbon Dioxide 20.8 L Anion Gap 15 BUN 23 H Creatinine 0.69 L Estim Creat Clear Calc 58.42 Est GFR (MDRD) Non-Af 87 BUN/Creatinine Ratio 33.9 H Glucose 119 H Lactic Acid 1.3 Calcium 9.1 Total Bilirubin 0.33 AST 16 ALT 9 Alkaline Phosphatase 74 Total Protein 6.7 Albumin 3.5 Globulin 3.2 Albumin/Globulin Ratio 1.1 Lipase 13 Urine Color Yellow Urine Clarity Cloudy Urine pH 8.0 Ur Specific [place] 1.010 Urine Protein 15 H Urine Glucose (UA) Normal Urine Ketones Negative Urine Occult Blood Negative Urine Nitrite Positive H Urine Bilirubin Negative Urine Urobilinogen Normal Ur Leukocyte Esterase 25 H Urine RBC 0-5 SEEN Urine WBC 5-10 SEEN Ur Squamous Epith Cells 0-5 SEEN Amorphous Sediment 3+ Urine Bacteria 2+ Urine Mucus 0 SEEN Radiography Diagnostic Testing: Clinical Impression(s) from Imaging Studies Abdomen/Pelvis CT 05/11/25 21:10 IMPRESSION: 1. Worsening small bowel obstruction with dilated small bowel loops measuring up to 4.8 cm and transition point located to the large umbilical hernia. 2. Sigmoid diverticulosis with no evidence of acute diverticulitis. 3. Interval increase in the moderate right pleural effusion. 4. Small volume ascites throughout the abdomen and pelvis. Reading Location: [facility] Discharge Plan Triage Chief Complaint: Nausea/Vomiting/Diarrhea ED Provider: Damion Gilmore Dx/Rx/DC Orders Prescriptions: No Action calcium carbonate [Tums] 200 mg calcium (500 mg) tablet,chewable 200 mg PO DAILY cholecalciferol (vitamin D3) 50 mcg (2,000 unit) capsule 7,000 unit PO DAILY rosuvastatin [Crestor] 5 mg tablet 5 mg PO .qod coenzyme Q10 100 mg capsule 100 mg PO DAILY magnesium gluconate 27 mg magnesium (500 mg) tablet 27 mg PO QDAY metoclopramide HCl 5 mg tablet 5 mg PO TID PRN (Reason: nausea and vomiting) zinc 50 mg capsule 50 mg PO DAILY ascorbic acid (vitamin C) [C-1000] 1,000 mg tablet 2 g PO DAILY bupropion HCl 150 mg tablet extended release 24 hr 150 mg PO DAILY ferrous sulfate [FeroSul] 325 mg (65 mg iron) tablet 325 mg PO DAILY ondansetron 4 mg tablet,disintegrating 4 mg PO Q8H PRN PRN (Reason: Nausea) Qty: 10 0RF amiodarone 200 mg tablet 200 mg PO DAILY furosemide 40 mg Tablet 40 mg PO BIDLX 30 Days Qty: 60 0RF acetaminophen 500 mg Tablet 1,000 mg PO Q6H PRN PRN (Reason: Pain Score 1-10) Qty: 0 0RF Eliquis 5 mg Tablet 5 mg PO BID 30 Days Qty: 60 0RF potassium chloride 20 mEq Tablet,Er Particles/Crystals 20 meq PO BID 30 Days Qty: 60 0RF prochlorperazine maleate 10 mg tablet 10 mg PO Q6H PRN PRN (Reason: anxiety) pantoprazole 20 mg tablet,delayed release (DR/EC) 20 mg PO DAILY gabapentin 300 mg capsule 300 mg PO QHS diltiazem HCl 120 mg capsule,extended release 24hr 120 mg PO Q12H Qty: 180 3RF metoprolol tartrate 50 mg tablet 50 mg PO BID Qty: 180 3RF Primary Care Provider: Gini Ojeda Referrals: Gini Ojeda DO [Primary Care Provider] - Print Language: [place]
[2025-05-11 20:16] LABS: Differential Indicated SCAN CRITERIA MET
[2025-05-11] MEDS: 0.9% Normal Saline (1000mL) 1,000 ML 999 ML IV (20:24)
[2025-05-11 21:05] LABS: Differential Comment SCANNED
[2025-05-11 21:07] LABS: Anisocytosis 2+; Polychromasia 1+
[2025-05-11 21:08] LABS: Hypochromasia 1+
--- NOTE | 2025-05-11 21:10 | CT_ITS ---
PROCEDURE: ABDOMEN/PELVIS W IV CONT ONLY 05/11/2025 REASON FOR EXAM: KNOWN OVARIAN CANCER, NAUSEA AND VOMITING TECHNIQUE: Procedure Code: [id number] Modality: CT Procedure: ABDOMEN/PELVIS W IV CONT ONLY Coronal and Sagittal reconstruction series were provided. CONTRAST: 100 cc of Isovue 370 intravenous contrast. One or more dose reduction techniques were used (e.g., Automated exposure control, adjustment of the mA and/or kV according to patient size, use of iterative reconstruction technique. COMPARISON: CT abdomen and pelvis 03/12/2025 FINDINGS: Lung bases: Significant interval increase in the moderate right pleural effusion. Liver: Normal in size with redemonstrated slightly nodular contour. Gallbladder: Cholecystectomy with associated prominence of the intrahepatic and common bile ducts. Spleen: Normal size. Pancreas: Normal size without evidence of mass surrounding inflammation or ductal dilation. Adrenals: Unremarkable. Kidneys: Stable 1.6 cm left renal cyst. No renal calculi or hydronephrosis. Bladder: Unremarkable. Reproductive Organs: Prior hysterectomy. Adnexal regions are unremarkable. Bowel: Interval increase in the multiple dilated loops of small bowel loops measuring up to 4.8 cm. The transition point is likely within the large umbilical hernia. Redemonstrated sigmoid diverticulosis with no evidence of acute diverticulitis. Appendix: The appendix is not identified. There is no inflammatory process identified in the right lower quadrant to suggest appendicitis. Lymph nodes: Unremarkable. Vasculature: Mild diffuse atherosclerotic calcifications are noted. No aneurysm. Peritoneum / Retroperitoneum: Small volume ascites throughout the abdomen and pelvis. No intraperitoneal free air. Bones: Degenerative changes of the spine. No acute fractures. CT/Abdomen/Pelvis W IV Cont ONLY IMPRESSION: 1. Worsening small bowel obstruction with dilated small bowel loops measuring u p to 4.8 cm and transition point located to the large umbilical hernia. 2. Sigmoid diverticulosis with no evidence of acute diverticulitis. 3. Interval increase in the moderate right pleural effusion. 4. Small volume ascites throughout the abdomen and pelvis. Reading [facility]
[2025-05-11 21:12] LABS: AST(SGOT) 16 U/L (<=31); Alanine Aminotransfer ALT/SGPT 9 U/L (<=34); Albumin, Serum 3.5 g/dL (3.4-4.8); Alkaline Phosphatase 74 U/L (35-104); Anion Gap 15 (5-15); BUN 23 mg/dL (4-19); BUN/Creat Ratio 33.9 RATIO (10-20); Calcium,Total 9.1 mg/dL (7.6-11.0); Carbon Dioxide 20.8 mmol/L (21.0-32.0); Chloride 101 mmol/L (98-108); Estimated Creatinine Clearance 58.42 ml/min (50-250); Globulin 3.2 g/dL (2.2-4.2); Glucose 119 mg/dL (70-99); Lipase 13 U/L (13-75); Potassium 3.8 mmol/L (3.3-5.1)
[2025-05-11 22:28] VITALS: BP 134/75; PULSE 77; RESP 15; O2SAT 99
[2025-05-11 22:33] LABS: Mucous, Urine 0 SEEN /hpf (<or=2+)
[2025-05-11 22:39] LABS: Color, Urine Yellow (Yellow); Glucose, Dipstick Normal (Normal); Ketone-Dipstick Negative (Negative); Leukocyte Esterase-Dipstick 25 /ul (Negative); Nitrite-Dipstick Positive (Negative); Occult Blood-Urine Negative /ul (Negative); Protein-Dipstick 15 mg/dl (Negative); Specific Gravity, Urine 1.010 (1.002-1.030); Urine Bilirubin Dipstick Negative (Negative)
--- NOTE | 2025-05-11 22:40 | RAD_ITS ---
PROCEDURE: ABDOMEN SINGLE VIEW (PORTABLE) 05/11/2025 REASON FOR EXAM: NG PLACEMENT TECHNIQUE: Procedure Code: RADABD_P Modality: DX Procedure: ABDOMEN SINGLE VIEW (PORTABLE) COMPARISON: Abdominal CT earlier same day 05/11/2025. FINDINGS: Enteric tube courses midline, terminating in the epigastric region in the expected location of the stomach. Distended bowel loops in the visualized upper abdomen. No discernible free air. No unusual calcific densities are seen. Visualized lung bases are clear. Partially imaged right shoulder arthroplasty. RAD/Abdomen Single View (Portable) IMPRESSION: Enteric tube terminates appropriately within the stomach. Reading Location: [facility]
[2025-05-11 22:48] LABS: Red Blood Cells-Urine 0-5 SEEN /hpf (0-5); Squamous Epithelial Cells - UA 0-5 SEEN /hpf (5-10)
[2025-05-11] MEDS: 0.9% Normal Saline (1000mL) 1,000 ML 100 ML IV (23:07)
[2025-05-11] MEDS: Ceftriaxone 2 GM in 0.9% Normal Saline (50mL MB+) 50 ML IV (23:08)
[2025-05-12] VITALS (11 sets, daily range): BP systolic 101–145; BP diastolic 37–79; PULSE 70–88; RESP 14–16; TEMP 36.4–37.1; O2SAT 95–99; BMI 28.4
--- NOTE | 2025-05-12 00:16 | EX.PCM.CON.S ---
Assessment & Plan Assessment/Plan (1) Small bowel obstruction: PLAN: Patient is a 80-year-old female who presents with apparent recurrent small bowel obstruction which is originally described as related to entrapment and umbilical hernia. However, after review of the EMR, eliciting patient's history, and performing a clinical exam I gather that patient has a [place] hernia that is reducible and the bowel obstruction appears more likely attributable to the progression of her metastatic ovarian cancer. Patient is known to me from a unrelated consult 2 years ago and I noted a significant weight loss since that time. Patient confirms that she has experienced approximately 20 to 30 pound weight loss in this year alone. She stopped chemotherapy started earlier this year that was aimed at trying to slow the progress of the cancer due to its negative impact on her quality of life. At time she was advised to enter hospice. I had a long conversation with her and her daughter regarding options and suggested that if surgery is performed for advanced cancer it tends to be counterproductive as it offers a pro tumor environment that accelerates cancer growth and can in no way offer a timeline to recurrence of the condition. I also shared that patient's treatment from [address] Moe where she underwent a primary hernia repair would be fraught with an unacceptable risk of recurrence if it was achievable at all given the changes to her abdominal wall from the tumor implants. Lastly, I introduced the possibility of a more palliative options such as a decompressive gastrostomy. At this point patient states she had been previously leaning towards seeking Dr. Clark's input since they have established rapport and I second this inclination that even if it is determined no intervention is the best course of action she would derive more peace from him being the source of that pronouncement than anyone else. This discourse was shared with emergency medicine and they will seek transfer to [facility]. For the meantime agree with NG tube to intermittent low wall suction, intravenous IV fluids, and periodic checks of patient's electrolytes. (2) Umbilical hernia: PLAN: Wide-mouthed, 9 cm defect with easily reducible contents (3) Ovarian cancer: PLAN: Rare subtype, widely metastatic, presently untreated due to unacceptable side effects from prescribed chemotherapy. Managed by [facility] through [facility] HPI Consult Data Date of Consult: 05/12/25 HPI Narrative Reason for Consultation: Small bowel obstruction HPI Narrative: FAVIO HE, is a 80 F who presents to [facility] with complaints of abdominal pain and some associated nausea and vomiting which began today. However, patient is accompanied by her daughter and her daughter shares that her mother actually began with complaints of some vomiting and diarrhea about a week ago and then 2 days ago began to state that her stomach was sore. Patient reports that she has had ongoing diarrhea in addition of vomiting today. ER workup has included laboratories and CT imaging which showed dilated small bowel with apparent transition point in the patient's umbilical hernia. Patient has a history of metastatic ovarian cancer and follows with adjunct instructor of women's studies oncologist Dr. Clark at [facility]. It is clear from our EMR that patient has required transfer on 3 prior occasions to their facility this year alone for the same presentation. Those transfers occurred on 09/04/2024, 10/25/2024, and 03/12/2025. Patient and her daughter shared that she never required an operation during those visits but spent up to 7 days without nutrition until it was gradually reintroduced. They also share that patient was started on chemotherapy to try to decrease the tumor burden in her abdomen but not necessarily strive for curative intent. They state this chemotherapy led to a poor quality of life and patient ultimately gave it up in January of this year. At that time she was advised to enlist hospice care. However, patient does confirm that she would like surgery if that were the only means of saving her life. [facility] Medical History Bowel obstruction Restless leg syndrome Chronic anticoagulation Ovarian cancer Chronic anticoagulation Anemia Bladder prolapse History of cardioversion Cardiology follow-up encounter Cellulitis Multiple thyroid nodules Multiple thyroid nodules NAFLD (nonalcoholic fatty liver disease) Diarrhea Steatosis Hepatomegaly Non-smoker Shortness of breath on exertion COPD (chronic obstructive pulmonary disease) Recurrent ventral incisional hernia Paroxysmal atrial fibrillation Thyroid nodule Right lower lobe pulmonary nodule Atrial fibrillation with rapid ventricular response (10/12/20) Nonrheumatic mitral valve stenosis with insufficiency Essential (primary) hypertension Peritoneal carcinomatosis Ovarian cancer Cholelithiasis Chronic cholecystitis Calculus of gallbladder with chronic cholecystitis without obstruction Vitamin D deficiency Hyperlipemia Carpal tunnel syndrome, bilateral Bilateral carotid artery stenosis Asthma Fatty liver Sciatica Osteopenia Paresthesia Home Medications ?Medication ?Instructions ?Recorded ?Last Taken ?Type calcium carbonate (Tums) 200 mg PO DAILY supplement 10/09/17 Unknown History coenzyme Q10 100 mg capsule 100 mg PO DAILY Supplement 10/23/20 Unknown History cholecalciferol (vitamin D3) 50 7,000 unit PO DAILY supplement 03/16/23 Unknown History mcg (2,000 unit) capsule ascorbic acid (vitamin C) 1,000 mg 2 g PO DAILY Supplement 09/23/23 Unknown History tablet (C-1000) zinc 50 mg capsule 50 mg PO DAILY Supplement 09/23/23 Unknown History bupropion HCl 150 mg 24 hr tablet, 150 mg PO DAILY Mood 10/25/23 Unknown History extended release ferrous sulfate 325 mg (65 mg 325 mg PO DAILY Supplement 10/25/23 Unknown History iron) tablet (FeroSul) diltiazem HCl 120 mg 120 mg PO Q12H Heart #180 caps 05/13/24 09/20/24 08:40 Rx capsule,extended release 24 hr ondansetron 4 mg disintegrating 4 mg PO Q8H PRN PRN Nausea #10 tabs 06/28/24 Unknown Rx tablet metoprolol tartrate 50 mg tablet 50 mg PO BID BP #180 tabs 08/04/24 09/20/24 08:30 Rx amiodarone 200 mg tablet 200 mg PO DAILY Heart Rhythm 09/20/24 09/20/24 08:30 History acetaminophen 500 mg tablet 1,000 mg (2 x 500 mg) PO Q6H PRN 09/30/24 Unknown Rx PRN Pain Score 1-10 #0 tabs apixaban 5 mg tablet (Eliquis) 5 mg PO BID 30 days #60 tabs 09/30/24 Unknown Rx furosemide 40 mg tablet 40 mg PO BIDLX 30 days #60 tabs 09/30/24 Unknown Rx potassium chloride 20 mEq 20 meq PO BID 30 days #60 tabs 09/30/24 Unknown Rx tablet,extended release(part/cryst) prochlorperazine maleate 10 mg 10 mg PO Q6H PRN PRN anxiety 01/09/25 Unknown History tablet pantoprazole 20 mg tablet,delayed 20 mg PO DAILY 01/10/25 Unknown History release magnesium gluconate 27 mg 27 mg PO QDAY 02/08/25 Unknown History magnesium (500 mg) tablet metoclopramide HCl 5 mg tablet 5 mg PO TID PRN nausea and vomiting 02/08/25 Unknown History rosuvastatin 5 mg tablet (Crestor) 5 mg PO .qod CHOLESTEROL 02/08/25 Unknown History gabapentin 300 mg capsule 300 mg PO QHS 02/13/25 Unknown History lorazepam 0.5 mg tablet 0.5 mg PO Q6H PRN PRN anxiety 05/12/25 Unknown History oxycodone 5 mg tablet 5 mg PO Q6H PRN PRN pain 05/12/25 Unknown History sennosides 8.6 mg-docusate sodium 1 tab PO BID PRN PRN constipation 05/12/25 Unknown History 50 mg tablet (Stimulant Laxative Plus) Allergy/AdvReac Type Severity Reaction Status Date / Time morphine AdvReac Severe Nausea/Vom/ Verified 05/11/25 19:18 Diarrhea penicillin G AdvReac Unknown Unknown Verified 05/11/25 19:18 Family History Father CAD (coronary artery disease) Diabetes Mother Lymphoma Sister Colon cancer Brother Colon cancer Surgical History History of rectal polypectomy History of hysterectomy with unilateral oophorectomy (1983) History of cholecystectomy (10/23/17) H/O nasal polypectomy History of colonoscopy History of hernia repair (10/2020) History of shoulder replacement (2019) History of exploratory laparotomy (10/2020) Status post laser ablation of incompetent vein Social History household members: none and other details: . Smoking Status: Never smoker second hand exposure: No alcohol intake: never details: rare substance use type: does not use caffeine: No what type of physical activity do you participate in: walking frequency: 3-4 times per week duration: < 15 minutes/day patricia/buddhist: Pentecostalism seatbelt use: always do you feel safe at home: Yes Physical Exam Const alert, oriented x3 and no apparent distress Constitutional Narrative: Appears thin and frail HEENT HEENT Narrative: Nasogastric tube in place draining clear yellow bilious output (300 mL was present in the canister) Resp normal respiratory effort GI GI Narrative: Protuberant abdomen with well-healed scars. There is an easily palpable hernia just to the left of the umbilicus estimated at 10 cm in diameter. This hernia is freely reducible to the peritoneal cavity. Palpating along the edges of the hernia defect are irregularities suggestive of scar tissue versus tumor caking. There are no overlying skin changes present. Lab / Micro Data 05/11/25 19:20 05/11/25 19:20 Labs: Laboratory Results - last 24 hr 05/11/25 19:20: WBC 16.5 H, RBC 4.28, Hgb 9.1 L, Hct 30.6 L, MCV 71.5 L, MCH 21.3 L, MCHC 29.7 L, RDW Std Deviation 49.4 H, RDW Coeff of Jaciel 20.1 H, Plt Count 605 H, MPV 8.2, Immature Gran % (Auto) 0.400, Neut % (Auto) 77.8 H, Lymph % (Auto) 9.7 L, [place] % (Auto) 11.6 H, Eos % (Auto) 0.3, Baso % (Auto) 0.2, Absolute Neuts (auto) 12.8 H, Absolute Lymphs (auto) 1.59, Nucleated RBC % 0, Differential Comment SCANNED, Platelet Estimate MOD INC, Polychromasia 1+, Hypochromasia 1+, Anisocytosis 2+, Sodium 137, Potassium 3.8, Chloride 101, Carbon Dioxide 20.8 L, Anion Gap 15, BUN 23 H, Creatinine 0.69 L, Estim Creat Clear Calc 58.42, Est GFR (MDRD) Non-Af 87, BUN/Creatinine Ratio 33.9 H, Glucose 119 H, Calcium 9.1, Total Bilirubin 0.33, AST 16, ALT 9, Alkaline Phosphatase 74, Total Protein 6.7, Albumin 3.5, Globulin 3.2, Albumin/Globulin Ratio 1.1, Lipase 13 05/11/25 20:14: Lactic Acid 1.3 05/11/25 22:25: Urine Color Yellow, Urine Clarity Cloudy, Urine pH 8.0, Ur Specific [place] 1.010, Urine Protein 15 H, Urine Glucose (UA) Normal, Urine Ketones Negative, Urine Occult Blood Negative, Urine Nitrite Positive H, Urine Bilirubin Negative, Urine Urobilinogen Normal, Ur Leukocyte Esterase 25 H, Urine RBC 0-5 SEEN, Urine WBC 5-10 SEEN, Ur Squamous Epith Cells 0-5 SEEN, Amorphous Sediment 3+, Urine Bacteria 2+, Urine Mucus 0 SEEN Imaging Radiology Impression Abdomen/Pelvis CT 05/11/25 21:10 IMPRESSION: 1. Worsening small bowel obstruction with dilated small bowel loops measuring up to 4.8 cm and transition point located to the large umbilical hernia. 2. Sigmoid diverticulosis with no evidence of acute diverticulitis. 3. Interval increase in the moderate right pleural effusion. 4. Small volume ascites throughout the abdomen and pelvis. [facility] X-[facility] 05/11/25 22:40 IMPRESSION: Enteric tube terminates appropriately within the stomach. Reading Location: [id number] Charges/Coding Visit Charges Inpatient E&M: 93717 Init Hosp L2
--- NOTE | 2025-05-12 09:13 | PCA ---
THIS DISTRIBUTION CENTER ASSISTANT CALLED [facility] AT 0910 FOR AN UPDATE ON BED ASSIGNMENT. THEY ARE STILL FULL AND WILL NOT HAVE A BED UNTIL DISCHARGES, WHICH WON'T HAPPEN UNTIL LATE THIS AFTERNOON
[2025-05-12] MEDS: 0.9% Normal Saline (1000mL) 1,000 ML 100 ML IV ×2 (10:12→21:06)
--- NOTE | 2025-05-12 17:10 | PCM.HP.STD ---
HPI - General General Date of Admission: 05/12/25 HPI Narrative FAVIO HE, is a 80 F who presents to the hospital with nausea vomiting and diarrhea as well as abdominal pain. She presented to the hospital and was evaluated by general surgery who felt that her hernia was large and easily reducible. An NG tube was placed and she is having a little bit of drainage. 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 She does have a little bit of a leukocytosis which may be related to a UTI, her UA is little bit martini and she is not overly symptomatic. Urine culture is pending and she is given a one-time dose of Rocephin but will hold off continued empiric treatment at the moment. Most of her symptoms will worsened on the day of admission to the emergency room though she had had some symptoms the day prior. According to the daughter she has been having increased frequency of symptoms and they have been looking into getting her into an assisted living however the wait list is 6 to 8 months [facility] Medical History Bowel obstruction Restless leg syndrome Chronic anticoagulation Ovarian cancer Chronic anticoagulation Anemia Bladder prolapse History of cardioversion Cardiology follow-up encounter Cellulitis Multiple thyroid nodules Multiple thyroid nodules NAFLD (nonalcoholic fatty liver disease) Diarrhea Steatosis Hepatomegaly Non-smoker Shortness of breath on exertion COPD (chronic obstructive pulmonary disease) Recurrent ventral incisional hernia Paroxysmal atrial fibrillation Thyroid nodule Right lower lobe pulmonary nodule Atrial fibrillation with rapid ventricular response (10/12/20) Nonrheumatic mitral valve stenosis with insufficiency Essential (primary) hypertension Peritoneal carcinomatosis Ovarian cancer Cholelithiasis Chronic cholecystitis Calculus of gallbladder with chronic cholecystitis without obstruction Vitamin D deficiency Hyperlipemia Carpal tunnel syndrome, bilateral Bilateral carotid artery stenosis Asthma Fatty liver Sciatica Osteopenia Paresthesia Home Medications ?Medication ?Instructions ?Recorded ?Last Taken ?Type calcium carbonate (Tums) 200 mg PO DAILY supplement 10/09/17 05/11/25 History cholecalciferol (vitamin D3) 50 7,000 unit PO DAILY supplement 03/16/23 05/11/25 History mcg (2,000 unit) capsule ascorbic acid (vitamin C) 1,000 mg 2 g PO DAILY Supplement 09/23/23 05/11/25 History tablet (C-1000) zinc 50 mg capsule 50 mg PO DAILY Supplement 09/23/23 05/11/25 History bupropion HCl 150 mg 24 hr tablet, 150 mg PO DAILY Mood 10/25/23 05/11/25 History extended release diltiazem HCl 120 mg 120 mg PO Q12H Heart #180 caps 05/13/24 09/20/24 08:40 Rx capsule,extended release 24 hr ondansetron 4 mg disintegrating 4 mg PO Q8H PRN PRN Nausea #10 tabs 06/28/24 05/11/25 Rx tablet metoprolol tartrate 50 mg tablet 50 mg PO BID BP #180 tabs 08/04/24 05/11/25 Rx amiodarone 200 mg tablet 200 mg PO DAILY Heart Rhythm 09/20/24 05/11/25 History acetaminophen 500 mg tablet 1,000 mg (2 x 500 mg) PO Q6H PRN 09/30/24 Unknown Rx PRN Pain Score 1-10 #0 tabs apixaban 5 mg tablet (Eliquis) 5 mg PO BID anticoagulation 30 09/30/24 05/11/25 Rx days #60 tabs prochlorperazine maleate 10 mg 10 mg PO Q6H PRN PRN anxiety 01/09/25 Unknown History tablet pantoprazole 20 mg tablet,delayed 20 mg PO DAILY indigestion 01/10/25 05/11/25 History release metoclopramide HCl 5 mg tablet 5 mg PO TID PRN nausea and vomiting 02/08/25 Unknown History gabapentin 300 mg capsule 300 mg PO QHS neuropathy 02/13/25 05/11/25 History lorazepam 0.5 mg tablet 0.5 mg PO Q6H PRN PRN anxiety 05/12/25 Unknown History oxycodone 5 mg tablet 5 mg PO Q6H PRN PRN pain 05/12/25 Unknown History sennosides 8.6 mg-docusate sodium 1 tab PO BID PRN PRN constipation 05/12/25 Unknown History 50 mg tablet (Stimulant Laxative Plus) Allergy/AdvReac Type Severity Reaction Status Date / Time morphine AdvReac Severe Nausea/Vom/ Verified 05/11/25 19:18 Diarrhea penicillin G AdvReac Unknown Unknown Verified 05/11/25 19:18 Family History Father CAD (coronary artery disease) Diabetes Mother Lymphoma Sister Colon cancer Brother Colon cancer Surgical History History of rectal polypectomy History of hysterectomy with unilateral oophorectomy (1983) History of cholecystectomy (10/23/17) H/O nasal polypectomy History of colonoscopy History of hernia repair (10/2020) History of shoulder replacement (2019) History of exploratory laparotomy (10/2020) Status post laser ablation of incompetent vein Social History household members: none and other details: . Smoking Status: Never smoker second hand exposure: No alcohol intake: never details: rare substance use type: does not use caffeine: No what type of physical activity do you participate in: walking frequency: 3-4 times per week duration: < 15 minutes/day patricia/hinduism: Jain seatbelt use: always do you feel safe at home: Yes ROS Constitutional Constitutional: Denies chills, fatigue, fever(s) or malaise Eyes Eyes: Denies blurry vision ENT HEENT: Denies headache(s) or nasal discharge Cardiovascular Cardiovascular: Denies chest pain, dyspnea on exertion or syncope Respiratory/Chest Respiratory/Chest: Denies cough, shortness of breath at rest or shortness of breath with exertion Gastrointestinal Gastrointestinal: Reports diarrhea, nausea and vomiting; Denies constipation Genitourinary Genitourinary: Denies dysuria Neurologic Neurologic: Denies focal weakness, numbness or tremor(s) Psychiatric Psychiatric: Denies anxiety or depression Vital Signs Vital Signs Vital Signs: 05/11/25 19:16 05/11/25 22:28 05/12/25 00:00 Temperature 98.7 F Temperature Source Oral Pulse Rate 94 77 80 Respiratory Rate 16 15 16 Blood Pressure 132/65 H 134/75 H 104/45 L Blood Pressure Mean 87 94 64 Blood Pressure Source Blood Pressure Position Blood Pressure Location Pulse Ox 95 99 95 Oxygen Delivery Method Room Air Room Air 05/12/25 02:00 05/12/25 04:00 05/12/25 06:00 Temperature Temperature Source Pulse Rate 76 75 81 Respiratory Rate 16 14 16 Blood Pressure 114/43 L 101/42 L 145/58 H Blood Pressure Mean 66 61 87 Blood Pressure Source Blood Pressure Position Blood Pressure Location Pulse Ox 95 95 99 Oxygen Delivery Method Room Air Room Air Room Air 05/12/25 08:00 05/12/25 10:00 05/12/25 10:43 Temperature 97.9 F Temperature Source Pulse Rate 70 75 78 Respiratory Rate 16 16 16 Blood Pressure 121/39 H 133/40 H 118/37 L Blood Pressure Mean 66 71 64 Blood Pressure Source Blood Pressure Position Blood Pressure Location Pulse Ox 96 95 96 Oxygen Delivery Method Room Air Room Air 05/12/25 11:33 Temperature 97.6 F L Temperature Source Oral Pulse Rate 74 Respiratory Rate 16 Blood Pressure 139/55 H Blood Pressure Mean 83 Blood Pressure Source Monitor Blood Pressure Position Semi-Fowlers Blood Pressure Location Right Arm Pulse Ox 99 Oxygen Delivery Method Room Air Weight Weight: 176 lb 0.217 oz Body Mass Index (BMI) 28.4 Physical Exam Narrative General: Alert, Oriented x3, Cooperative, No apparent distress HEENT: Atraumatic, PERRLA, EOMI, Normocephalic, NG tube Oral: Moist Mucosa Neck: Supple, No JVD Lungs: Diminished, Normal air movement, No rhonchi, No wheeze, No rales Cardiovascular: Regular rate, Regular Rhythm, Normal S1, Normal S2, No murmurs Abdomen: Soft, Non Tender, Non-Distended, No Hepato-splenomegaly Extremities: Edema, Capillary Refill Less than 3 Seconds Skin: No rashes, No breakdown Musculoskeletal: No Tenderness to Palpation of Joints or Extremities Neurological: No focal neurological deficits, moves all extremities Psych/Mental Status: Normal Affect, Appropriate Results Lab / Micro Data 05/11/25 19:20 05/11/25 19:20 Labs: Laboratory Results - last 24 hr 05/11/25 19:20: WBC 16.5 H, RBC 4.28, Hgb 9.1 L, Hct 30.6 L, MCV 71.5 L, MCH 21.3 L, MCHC 29.7 L, RDW Std Deviation 49.4 H, RDW Coeff of Jaciel 20.1 H, Plt Count 605 H, MPV 8.2, Immature Gran % (Auto) 0.400, Neut % (Auto) 77.8 H, Lymph % (Auto) 9.7 L, [place] % (Auto) 11.6 H, Eos % (Auto) 0.3, Baso % (Auto) 0.2, Absolute Neuts (auto) 12.8 H, Absolute Lymphs (auto) 1.59, Nucleated RBC % 0, Differential Comment SCANNED, Platelet Estimate MOD INC, Polychromasia 1+, Hypochromasia 1+, Anisocytosis 2+, Sodium 137, Potassium 3.8, Chloride 101, Carbon Dioxide 20.8 L, Anion Gap 15, BUN 23 H, Creatinine 0.69 L, Estim Creat Clear Calc 58.42, Est GFR (MDRD) Non-Af 87, BUN/Creatinine Ratio 33.9 H, Glucose 119 H, Calcium 9.1, Total Bilirubin 0.33, AST 16, ALT 9, Alkaline Phosphatase 74, Total Protein 6.7, Albumin 3.5, Globulin 3.2, Albumin/Globulin Ratio 1.1, Lipase 13 05/11/25 20:14: Lactic Acid 1.3 05/11/25 22:25: Urine Color Yellow, Urine Clarity Cloudy, Urine pH 8.0, Ur Specific [place] 1.010, Urine Protein 15 H, Urine Glucose (UA) Normal, Urine Ketones Negative, Urine Occult Blood Negative, Urine Nitrite Positive H, Urine Bilirubin Negative, Urine Urobilinogen Normal, Ur Leukocyte Esterase 25 H, Urine RBC 0-5 SEEN, Urine WBC 5-10 SEEN, Ur Squamous Epith Cells 0-5 SEEN, Amorphous Sediment 3+, Urine Bacteria 2+, Urine Mucus 0 SEEN Imaging Radiology Impression Abdomen/Pelvis CT 05/11/25 21:10 IMPRESSION: 1. Worsening small bowel obstruction with dilated small bowel loops measuring up to 4.8 cm and transition point located to the large umbilical hernia. 2. Sigmoid diverticulosis with no evidence of acute diverticulitis. 3. Interval increase in the moderate right pleural effusion. 4. Small volume ascites throughout the abdomen and pelvis. Reading [facility] X-Ray 05/11/25 22:40 IMPRESSION: Enteric tube terminates appropriately within the stomach. Reading Location: [facility] Assessment & Plan Assessment/Plan (1) Small bowel obstruction: PLAN: Plan 1. Small bowel obstruction in the setting of an umbilical hernia complicated by metastatic ovarian cancer to her peritoneum ? She longer wants to be on any chemotherapy and therefore would prefer palliative care, we did have a 25-minute conversation on advance care planning options ? Will continue with NG tube and consult general surgery while pending transfer to [facility] Where she would like a second opinion surgical interventions by her WELDING MACHINE OPERATOR HELPER [facility]/ONC physician ? As she will be n.p.o. therefore we will hold all of her home medications ? She is allergic to morphine ? Will provide Chloraseptic spray for comfort with her NG tube ? Will continue with IV fluids while n.p.o. 2. Essential HTN/HLD/A-fib ? Will hold her home medications will have a low threshold of restarting anything IV ? In anticipation of possible surgical intervention we will hold her anticoagulation ? Blood pressure is currently stable, will monitor and make adjustments as necessary ? If it does become necessary we can always clamp NG tube and provide her oral medications 3. Possible UTI ? She did receive a dose of Rocephin in the ER ? Will hold all antibiotics pending urine culture ? She does have a leukocytosis however she was denying any symptoms of dysuria 4. Iron deficiency anemia with thrombocytosis ? Her thrombocytosis is likely related to her cancer as well as dehydration ? Continue with IV fluids ? Anticipate her anemia to improve the longer she is off chemotherapy 5. GERD ? Stable ? Can resume IV PPI 6. Anxiety/depression ? Stable ? Can resume her home medications when she can take p.o. DVT: Lovenox Charges/Coding Multi Select Codes Visit Charges Visit Charges: 38595 Init Hosp L2 Hospitalists' Procedures Procedures: 10160 Advncd Care Plan 30 Min
--- NOTE | 2025-05-12 21:37 | NURSING ---
Called transport. ETA for pharmacy picking tech about 4 hours.
--- NOTE | 2025-05-12 23:44 | PCM.DC.SUM ---
Providers Date of Admission: 05/12/25 Primary Care Physician: Dr. Gini Ojeda DO Consultations 05/12/25 15:15 Consult: General Surgery Routine Consulting Provider: Todd Moe Reason for Consult: SBO NGT EMERGENT Consult: No MD Notified: Yes Date Notified: 05/12/25 Time Notified: 15:15 Method of Notification: Verbal Reason For Visit: SBO Diagnosis Discharge Diagnosis (1) Small bowel obstruction: Status: Acute Code(s): K56.609 - Unspecified intestinal obstruction, unspecified as to partial versus complete obstruction Medications at Discharge Home Medications calcium carbonate (Tums) 200 mg PO DAILY supplement 10/09/17 cholecalciferol (vitamin D3) 50 mcg (2,000 unit) capsule 7,000 unit PO DAILY supplement 03/16/23 ascorbic acid (vitamin C) 1,000 mg tablet (C-1000) 2 g PO DAILY Supplement 09/23/23 zinc 50 mg capsule 50 mg PO DAILY Supplement 09/23/23 bupropion HCl 150 mg 24 hr tablet, extended release 150 mg PO DAILY Mood 10/25/23 diltiazem HCl 120 mg capsule,extended release 24 hr 120 mg PO Q12H Heart #180 caps 05/13/24 ondansetron 4 mg disintegrating tablet 4 mg PO Q8H PRN PRN Nausea #10 tabs 06/28/24 metoprolol tartrate 50 mg tablet 50 mg PO BID BP #180 tabs 08/04/24 amiodarone 200 mg tablet 200 mg PO DAILY Heart Rhythm 09/20/24 acetaminophen 500 mg tablet 1,000 mg (2 x 500 mg) PO Q6H PRN PRN Pain Score 1-10 #0 tabs 09/30/24 apixaban 5 mg tablet (Eliquis) 5 mg PO BID anticoagulation 30 days #60 tabs 09/30/24 prochlorperazine maleate 10 mg tablet 10 mg PO Q6H PRN PRN anxiety 01/09/25 pantoprazole 20 mg tablet,delayed release 20 mg PO DAILY indigestion 01/10/25 metoclopramide HCl 5 mg tablet 5 mg PO TID PRN nausea and vomiting 02/08/25 gabapentin 300 mg capsule 300 mg PO QHS neuropathy 02/13/25 lorazepam 0.5 mg tablet 0.5 mg PO Q6H PRN PRN anxiety 05/12/25 oxycodone 5 mg tablet 5 mg PO Q6H PRN PRN pain 05/12/25 sennosides 8.6 mg-docusate sodium 50 mg tablet (Stimulant Laxative Plus) 1 tab PO BID PRN PRN constipation 05/12/25 Hospital Course Operations None Procedures - (NGT placement) Summary of Care Provided Hospital Course: FAVIO HE, is a 80 F who presents to the hospital with nausea vomiting and diarrhea as well as abdominal pain. She presented to the hospital and was evaluated by general surgery who felt that her hernia was large and easily reducible. An NG tube was placed and she is having a little bit of drainage. 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 She does have a little bit of a leukocytosis which may be related to a UTI, her UA is little bit martini and she is not overly symptomatic. Urine culture is pending and she is given a one-time dose of Rocephin but will hold off continued empiric treatment at the moment. Most of her symptoms will worsened on the day of admission to the emergency room though she had had some symptoms the day prior. According to the daughter she has been having increased frequency of symptoms and they have been looking into getting her into an assisted living however the wait list is 6 to 8 months. Examined by surgery while in ER. Per Dr. Bari Juan: (1) Small bowel obstruction: PLAN: Patient is a 80-year-old female who presents with apparent recurrent small bowel obstruction which is originally described as related to entrapment and umbilical hernia. However, after review of the EMR, eliciting patient's history, and performing a clinical exam I gather that patient has a [place] hernia that is reducible and the bowel obstruction appears more likely attributable to the progression of her metastatic ovarian cancer. Patient is known to me from a unrelated consult 2 years ago and I noted a significant weight loss since that time. Patient confirms that she has experienced approximately 20 to 30 pound weight loss in this year alone. She stopped chemotherapy started earlier this year that was aimed at trying to slow the progress of the cancer due to its negative impact on her quality of life. At time she was advised to enter hospice. I had a long conversation with her and her daughter regarding options and suggested that if surgery is performed for advanced cancer it tends to be counterproductive as it offers a pro tumor environment that accelerates cancer growth and can in no way offer a timeline to recurrence of the condition. I also shared that patient's treatment from [address] Moe where she underwent a primary hernia repair would be fraught with an unacceptable risk of recurrence if it was achievable at all given the changes to her abdominal wall from the tumor implants. Lastly, I introduced the possibility of a more palliative options such as a decompressive gastrostomy. At this point patient states she had been previously leaning towards seeking Dr. Clark's input since they have established rapport and I second this inclination that even if it is determined no intervention is the best course of action she would derive more peace from him being the source of that pronouncement than anyone else. This discourse was shared with emergency medicine and they will seek transfer to [facility]. For the meantime agree with NG tube to intermittent low wall suction, intravenous IV fluids, and periodic checks of patient's electrolytes. (2) Umbilical hernia: PLAN: Wide-mouthed, 9 cm defect with easily reducible contents (3) Ovarian cancer: PLAN: Rare subtype, widely metastatic, presently untreated due to unacceptable side effects from prescribed chemotherapy. Managed by [employer] Operations Compliance Manager Onc through [facility]. Weight / BMI Weight Weight: 176 lb 0.217 oz Body Mass Index (BMI) 28.4 ABG / Lab / Microbiology Data 05/11/25 19:20 05/11/25 19:20 D/C Instructions DC O2, CPAP, BIPAP Needs Home O2 Discharge instructions: No Meaningful Use Info Meaningful Use Meaningful Use Diagnoses (Choose all that apply): None applicable Discharge Plan Admission Admit Date/Time: 05/12/25 10:24 Attending Provider: Bakari Negrete Primary Care Provider: Gini Ojeda Consulting Providers: Todd Moe Discharge Orders/Prescriptions Prescriptions: No Action calcium carbonate [Tums] 200 mg calcium (500 mg) tablet,chewable 200 mg PO DAILY cholecalciferol (vitamin D3) 50 mcg (2,000 unit) capsule 7,000 unit PO DAILY metoclopramide HCl 5 mg tablet 5 mg PO TID PRN (Reason: nausea and vomiting) zinc 50 mg capsule 50 mg PO DAILY ascorbic acid (vitamin C) [C-1000] 1,000 mg tablet 2 g PO DAILY bupropion HCl 150 mg tablet extended release 24 hr 150 mg PO DAILY ondansetron 4 mg tablet,disintegrating 4 mg PO Q8H PRN PRN (Reason: Nausea) Qty: 10 0RF amiodarone 200 mg tablet 200 mg PO DAILY acetaminophen 500 mg Tablet 1,000 mg PO Q6H PRN PRN (Reason: Pain Score 1-10) Qty: 0 0RF Eliquis 5 mg Tablet 5 mg PO BID 30 Days Qty: 60 0RF prochlorperazine maleate 10 mg tablet 10 mg PO Q6H PRN PRN (Reason: anxiety) pantoprazole 20 mg tablet,delayed release (DR/EC) 20 mg PO DAILY gabapentin 300 mg capsule 300 mg PO QHS lorazepam 0.5 mg tablet 0.5 mg PO Q6H PRN PRN (Reason: anxiety) oxycodone 5 mg tablet 5 mg PO Q6H PRN PRN (Reason: pain) sennosides-docusate sodium [Stimulant Laxative Plus] 8.6-50 mg tablet 1 tab PO BID PRN PRN (Reason: constipation) diltiazem HCl 120 mg capsule,extended release 24hr 120 mg PO Q12H Qty: 180 3RF Patient Comments: pt unsure if she is taking? metoprolol tartrate 50 mg tablet 50 mg PO BID Qty: 180 3RF Referrals / Follow Up: Fast,Gini, DO [Primary Care Provider] - Disposition Disposition (needs filled in before D/C Order can be placed): [facility]
== END 2025-05-13 00:52 | disposition short-term general hospital (02) | DRG 389 ==
LOC: ED 05-12 10:27 → MS3 05-12 10:42
PROVIDERS: Admitting Provider Family Medicine; Emergency Provider Surgery; PCP Internal Medicine; Visit Provider Family Medicine
DX: K56.609 Unspecified intestinal obstruction, unspecified as to partial versus complete obstruction (principal); N39.0 Urinary tract infection, site not specified; C78.6 Secondary malignant neoplasm of retroperitoneum and peritoneum; C56.9 Malignant neoplasm of unspecified ovary; J44.9 Chronic obstructive pulmonary disease, unspecified; D50.9 Iron deficiency anemia, unspecified; I10 Essential (primary) hypertension; F32.A Depression, unspecified; I48.91 Unspecified atrial fibrillation; E78.5 Hyperlipidemia, unspecified; K21.9 Gastro-esophageal reflux disease without esophagitis; K42.9 Umbilical hernia without obstruction or gangrene; F41.9 Anxiety disorder, unspecified; Z79.01 Long term (current) use of anticoagulants; Z79.899 Other long term (current) drug therapy
CPT/HCPCS: 74018; 74177; 80053; 81001; 83605; 83690; 85025; 87077; 87086; 87088; 87186; 97802; 99285; Q9967; A4216; J0696; J2405